=== PATIENT | female | born 1945 | race Caucasian/White ===

== ENCOUNTER 2018-01-14 13:52 | Emergency (ER) | payer MEDICARE, SELFPAY ==
[2018-01-14 13:53] VITALS: BP 185/101; PULSE 81; RESP 20; TEMP 36.6; O2SAT 99; BMI 29.3
[2018-01-14 14:39] VITALS: BP 176/93; PULSE 81; RESP 15; O2SAT 95
--- NOTE | 2018-01-14 15:11 | ED.VIS.GEN ---
History of Present Illness Chief Complaint: Hypertension Informant: Patient, Family Onset: Weeks - 1.5 Context: Gradual Onset Timing: Continuous Quality: malaise Location: all over Current Severity: Moderate Maximum Severity: Moderate Narrative: For the past week or more, patient states that her blood pressure has been high, in the 180s, with diastolics occasionally in the triple digits. She has had intermittent right sharp headaches without any vision changes, she has some occasional muscle spasms in her upper back that she also feels into her chest on occasion. She was having that today when she was at her pain management doctor, and her blood pressure was over 200 systolic so she was sent to the ER. She states right now other than malaise, she has none of the other symptoms. Patient has been compliant with her losartan for blood pressure and has had no adjustments lately. No recent [id number] medications or cold medications. Also notable is that the patient states that she has had an increase in her chronic pain in the same amount of time that her blood pressure has been up. We gave her something for pain here, but it did not seem to make a big difference in her blood pressure. - Past Medical History (1) HTN (hypertension) Status: Chronic (2) Arthritis Status: Chronic (3) Fibromyalgia Status: Chronic (4) Chronic low back pain Status: Chronic (5) CAD (coronary artery disease) Status: Chronic Past Medical History - Allergies and Home Meds Allergies/Adverse Reactions: Allergies acetaminophen [From Midrin] Allergy (Verified 01/14/18 13:55) Other dichloralphenazone [From Midrin] Allergy (Verified 01/14/18 13:55) Other isometheptene [From Midrin] Allergy (Verified 01/14/18 13:55) Other Sulfa (Sulfonamide Antibiotics) Allergy (Verified 01/14/18 13:55) Swelling topiramate [From Topamax] Allergy (Verified 01/14/18 13:55) Unknown codeine Adverse Reaction (Verified 01/14/18 13:55) Nausea/Vom/Diarrhea ibuprofen Adverse Reaction (Verified 01/14/18 13:55) Nausea Primary Care Physician: Sally Irvin DO [Primary Care Provider] - Surgical History: coronary bypass surgery, total knee arthroplasty - left Smoking Status: Former smoker Review of Systems All systems negative except as indicated General: Reports: Malaise. Denies: Chills, Fever Eyes: Denies: Blurred Vision - bilaterally, Diplopia ENT: Denies: Bilateral ear pain Cardiovascular: Reports: Chest pain - not now, Heart racing - w/o near-syncope or syncope. Denies: Palpitations Respiratory: Denies: Dyspnea, Cough Gastrointestinal: Denies: Abdominal pain, Nausea, Vomiting, Diarrhea, Hematochezia Genitourinary: Denies: Dysuria, Frequency Musculoskeletal: Reports: Arthralgias - chronic, Back pain. Denies: Neck pain, Swelling, Extremity Pain Skin: Denies: Rash, Abscess Neurological: Reports: Headache - off and on, not now. Denies: Weakness, Parasthesia Hematologic: Denies: Easy bruising, Easy bleeding Allergy: Denies: Swelling of the mouth, Swelling of the tongue Physical Exam Vital Signs/Narrative: Vital Signs Temp Pulse Resp BP Pulse Ox 01/14/18 14:39 81 15 176/93 H 95 01/14/18 13:53 97.9 F 81 20 H 185/101 H 99 Inital Vital Signs reviewed: Yes General: Well nourished, Well developed Head: Normocephalic, Atraumatic Eyes: Perrl, EOMI ENT: Moist mucous membranes, No rhinorrhea Neck: Supple, Nontender Cardiovascular: Regular rate, Regular rhythm, No murmurs Respiratory: No distress, CTA bilaterally, Chest nontender Abdomen: Soft, Nontender, Nondistended, Normal bowel sounds Back: Normal Inspection, - - pain w/ sitting forward, winces in pain w/ light touching of the skin throughout the lumbosacral back. no rashes.. Negative for: CVA tenderness Extremities: Nontender, No edema Skin: Normal color, No rash Neurological: Alert, Oriented x3, Cranial nerves II-XII grossly intact, Normal Strength, Normal Sensation Psychological: Normal affect Diagnostic/Tx/Re-eval Impressions Chest X-Ray 01/14/18 15:09 IMPRESSION: No acute pulmonary process Electronically Signed: Sathya Hammer MD at 17:48 EDT , Service support , Brain CT 01/14/18 15:10 IMPRESSION: Chronic involutional changes of the brain. No acute hemorrhage Previous left craniotomy Electronically Signed: Sathya Hammer MD at 17:45 EDT , Service support , 01/14/18 15:09 Chest PA and Lateral [RAD] Stat 01/14/18 15:10 Brain/Head without Contrast [CT] Stat Laboratory Results 01/14/18 01/14/18 01/14/18 Range/Units 15:20 15:20 16:15 WBC 7.8 (4.4-11.0) K/mm3 RBC 4.86 (4.2-5.4) M/mm3 Hgb 14.8 (12.0-15.0) g/dl Hct 43.7 (37-47) % MCV 89.9 (81-99) fL MCH 30.5 (27.0-32.0) pg MCHC 33.9 (32-36) g/gl RDW 12.8 (11.6-14.6) % RDW Differential 41.8 (35.1-43.9) fl Plt Count 230 (150-450) K/mm3 MPV 9.7 (6.2-12.0) fl Immature Gran % (Auto) 0.300 (0.0-0.9) % Neut % (Auto) 56.5 (47-70) % Lymph % (Auto) 33.8 (19-41) % [place] % (Auto) 6.6 (0-10) % Eos % (Auto) 2.3 (0-5) % Baso % (Auto) 0.5 (0-1) % Absolute Neuts (auto) 4.4 (2.0-7.7) X10^3/uL Absolute Lymphs (auto) 2.63 (0.83-4.51) X10^3/ul Total Counted Not Reportable Sodium 141 (136-145) mmol/L Potassium 4.0 (3.5-5.1) mmol/L Chloride 105 (98-107) mmol/L Carbon Dioxide 28.0 (21.0-32.0) mmol/L Anion Gap 8 (5-15) BUN 13 (7-18) mg/dL Creatinine 0.90 (0.55-1.02) mg/dL Estim Creat Clear Calc 49.51 ml/min Est GFR (MDRD) Af Amer 79 (>60) mL/min Est GFR (MDRD) Non-Af 65 (>60) mL/min BUN/Creatinine Ratio 14.4 (10-20) RATIO Glucose 92 (74-106) mg/dL Calcium 9.0 (8.5-10.1) mg/dL Troponin I < 0.015 (<0.045) ng/mL Urine Color Straw (Yellow) Urine Clarity Sl. Cloudy (Clear) Urine pH 7.0 (5.0 - 8.0) Ur Specific [place] 1.010 (1.002-1.030) Urine Protein Negative (Negative) mg/dl Urine Glucose (UA) Normal (Normal) mg/dl Urine Ketones Negative (Negative) mg/dl Urine Occult Blood 10 H (Negative) /ul Urine Nitrite Negative (Negative) Urine Bilirubin Negative (Negative) mg/dL Urine Urobilinogen Normal (Normal) mg/dl Ur Leukocyte Esterase 25 H (Negative) /ul Urine RBC 0-5 SEEN (0-5) /hpf Urine WBC 0-5 SEEN (0-5) /hpf Ur Squamous Epith Cells 0-5 SEEN (5-10) /hpf Urine Bacteria 0 SEEN (None Seen) /hpf Urine Mucus 0 SEEN (<or=2+) /hpf - Rhythm Strip Rhythm Strip: Sinus Rhythm Rate: 85 Ectopy: None - EKG Initial EKG Interpretation: Sinus Rhythm, No Acute Injury Pattern, Non-Specific ST Changes, - - nml axis. mildly prolonged QTc - Medical Decision Making Labs, urinalysis, chest x-ray, CT head are all unremarkable. Her EKG shows no acute abnormalities. Her pressure was mostly in the 170s so I did not treat her emergently since she was just feeling malaised and not necessarily having acute symptoms. She has no signs of any endorgan damage. No dysrhythmias or tachycardia while here. She was saying that she had some feelings of racing heartbeat on occasion at home but no near-syncope or syncope. Given this I do not think he needs to be admitted to the hospital, and bringing her pressure down emergently now may make her feel worse. She needs to be brought down slowly, so I will add amlodipine to her medication list and have her follow-up with her doctor. ED Disposition - Plan for ED Patient: Disposition: Home or Assisted Living Chief Complaint: Hypertension Diagnosis: Chronic low back pain, Fibromyalgia, Accelerated hypertension, Intermittent chest pain Prescriptions: Amlodipine [Norvasc] 5 mg PO DAILY #30 tab Referrals: Sally Irvin DO [Primary Care Provider] - (2-5 days) Additional Instructions: Increase your losartan to 50 mg once daily in addition to the new prescription. (Take 2, 25-mg pills at one time, once a day, of the losartan.)
[2018-01-14 15:34] LABS: Absolute Lymphocyte Count 2.63 X10^3/ul (0.83-4.51); Absolute Neutrophil Count 4.4 X10^3/uL (2.0-7.7); Basophil# 0.04 X10^3/uL; Basophil% 0.5 % (0-1); Eosinophil# 0.18 X10^3/uL; Eosinophils% 2.3 % (0-5); Hematocrit 43.7 % (37-47); Hemoglobin 14.8 g/dl (12.0-15.0); Lymphocyte # 2.63 X10^3/ul (4.0); Lymphocyte % 33.8 % (19-41); Mean Corp Hgb Conc 33.9 g/gl (32-36); Mean Corpuscular Hgb 30.5 pg (27.0-32.0); Mean Corpuscular Volume 89.9 fL (81-99); Mean Platelet Vol. 9.7 fl (6.2-12.0); Monocyte# 0.51 X10^3/uL; Monocyte% 6.6 % (0-10); Neutrophil # 4.39 X10^3/uL (2.7-7.7); Neutrophil % 56.5 % (47-70); Platelet Count 230 K/mm3 (150-450); RBC Distribution Width CV 12.8 % (11.6-14.6); RBC Distribution Width SD 41.8 fl (35.1-43.9); Red Blood Count 4.86 M/mm3 (4.2-5.4); White Blood Count 7.8 K/mm3 (4.4-11.0)
[2018-01-14 15:43] LABS: POSITIVE COUNT NO; POSITIVE DIFFERENTIAL NO; POSITIVE MORPHOLOGY NO
[2018-01-14 15:58] LABS: Anion Gap 8 (5-15); BUN 13 mg/dL (7-18); BUN/Creat Ratio 14.4 RATIO (10-20); Chloride 105 mmol/L (98-107); EST Glomerular Filtration Rate 65 mL/min (>60); Est Glom Filt Rate - Afr Amer 79 mL/min (>60); Estimated Creatinine Clearance 49.51 ml/min; Glucose 92 mg/dL (74-106); Sodium Level 141 mmol/L (136-145)
[2018-01-14 16:15] VITALS: BP 190/98; PULSE 75; RESP 16; O2SAT 98
[2018-01-14 16:22] LABS: Bacteria 0 SEEN /hpf (None Seen); Mucous, Urine 0 SEEN /hpf (<or=2+)
[2018-01-14 16:35] LABS: Color, Urine Straw (Yellow); Glucose, Dipstick Normal (Normal); Ketone-Dipstick Negative (Negative); Leukocyte Esterase-Dipstick 25 /ul (Negative); Nitrite-Dipstick Negative (Negative); Occult Blood-Urine 10 /ul (Negative); Protein-Dipstick Negative (Negative); Urine Bilirubin Dipstick Negative (Negative); Urine Clarity Sl. Cloudy (Clear); Urine Urobilinogen Normal (Normal)
[2018-01-14] MEDS: oxyCODONE 5 MG Tablet PO (16:42)
[2018-01-14 16:55] LABS: Squamous Epithelial Cells - UA 0-5 SEEN /hpf (5-10)
[2018-01-14 16:56] LABS: Red Blood Cells-Urine 0-5 SEEN /hpf (0-5); White Blood Cells 0-5 SEEN /hpf (0-5)
[2018-01-14 18:18] VITALS: BP 158/78; PULSE 73; RESP 17; O2SAT 96
--- NOTE | 2018-01-14 18:18 | ED.VISSUMM ---
- ER Visit Summary Date of Service: 01/14/18 (D/C instructions) ED Disposition - Plan for ED Patient: Disposition: Home or Assisted Living Chief Complaint: Hypertension Diagnosis: Chronic low back pain, Fibromyalgia, Accelerated hypertension, Intermittent chest pain Instructions: ED Hypertension Conf Out Of Control Prescriptions: Amlodipine [Norvasc] 5 mg PO DAILY #30 tab Referrals: Sally Ivrin DO [Primary Care Provider] - (2-5 days) Additional Instructions: Increase your losartan to 50 mg once daily in addition to the new prescription. (Take 2, 25-mg pills at one time, once a day, of the losartan.)
[2018-01-14 18:40] VITALS: BP 145/98; PULSE 74; RESP 18; O2SAT 98
== END 2018-01-14 18:41 | disposition home or self-care (01) ==
PROVIDERS: Emergency Provider Emergency Medicine; Family Provider Family Medicine; PCP Family Medicine
DX: M54.5 Low back pain (principal); G89.29 Other chronic pain; M79.7 Fibromyalgia; I10 Essential (primary) hypertension; R07.89 Other chest pain; M19.90 Unspecified osteoarthritis, unspecified site; I25.10 Atherosclerotic heart disease of native coronary artery without angina pectoris; Z95.1 Presence of aortocoronary bypass graft; Z79.82 Long term (current) use of aspirin; Z79.899 Other long term (current) drug therapy; Z87.891 Personal history of nicotine dependence
CPT/HCPCS: 70450; 71046; 80048; 81001; 84484; 85025; 93005; 99285; A4216

== ENCOUNTER → 2018-08-18 02:00 | Outpatient (CLI) | payer MEDICARE, SELFPAY ==
--- NOTE | 2018-08-18 14:06 | ART_ITS ---
Reason For Study: Other Disorder Circulatory System Procedure A bilateral lower extremity continuous wave Doppler with analog waveform analysis,segmental pressures,and ankle brachial indexes without exercise. Left Segmental Pressures Left brachial= 178mmHg. Left thigh = 205mmHg. Left calf = 194mmHg. Left posterior tibial artery = 188mmHg. Left dorsalis pedis artery = 164mmHg. Left digit = 142 mmHg. Right Segmental Pressures Right brachial= 177mmHg. Right posterior tibial artery = 182mmHg. Right dorsalis pedis artery = 186mmHg. Right digit = 139 mmHg. Indices The right ankle brachial index by the posterior tibial artery is 1.02. The right ankle brachial index by the dorsalis pedis is 1.04. The right digital-brachial index is 0.78. The left ankle brachial index by the posterior tibial artery is 1.06. The left ankle brachial index by the dorsalis pedis is 0.92. The left digital-brachial index is 0.80. Interpretation Summary Triphasic Doppler waveforms are noted at ankle level bilaterally. Resting ankle-brachial indices are normal bilaterally. Digital-brachial indices are bilaterally normal. There is no evidence of significant arterial occlusive disease in the lower extremities bilaterally. Ordering Physician: Sumi Ayala Referring Physician: HENRIK Judge Performed By: Roxanne Ortega RDCS/RVT
== END ==
PROVIDERS: Family Provider Family Medicine; PCP Nurse Practitioner Adult Health; Referring Provider Nurse Practitioner Adult Health; Visit Provider Podiatrist Foot & Ankle Surgery
DX: R09.89 Other specified symptoms and signs involving the circulatory and respiratory systems (principal)
CPT/HCPCS: 93923

== ENCOUNTER 2019-04-08 10:08 | Observation (INO) | payer MEDICARE, SELFPAY ==
[2018-09-27 13:25] VITALS: BMI 30.5
[2019-04-08] VITALS (14 sets, daily range): BP systolic 162–204; BP diastolic 73–95; PULSE 60–81; RESP 16–22; TEMP 36.6–36.7; O2SAT 94–98; BMI 30.9; BMI 30.7
--- NOTE | 2019-04-08 10:49 | RAD_ITS ---
STUDY: X-RAY CHEST REASON FOR EXAM: Female, 74 years old. Chest pain. Hypertension. TECHNIQUE: Single AP portable view of the chest. COMPARISON: Comparison is made with prior study dated January 14, 2018. FINDINGS: The lungs are clear and expanded. There is no demonstrated pleural abnormality. Sternal cerclage wires and vascular clips are present from a prior sternotomy and coronary artery bypass graft procedure (CABG). Normal mediastinum and ramakrishna. Normal visualized pulmonary arteries. There is atherosclerotic calcification of the aortic arch with tortuosity. There are diffuse degenerative changes of the visualized thoracic spine. Normal visualized ribs, clavicles, and shoulders. There is no demonstrated abnormality of the visualized soft tissue structures of the upper abdomen. RAD/Chest 1 View (Portable) IMPRESSION: Stable examination. No acute abnormality is seen. Electronically Signed: Tayo Bundy, at 11:16 EST , Service support ,
--- NOTE | 2019-04-08 10:49 | EKG12_ITS ---
Test Reason : CP Blood Pressure : / mmHG Vent. Rate : 061 BPM Atrial Rate : 061 BPM P-R Int : 148 ms QRS Dur : 076 ms QT Int : 442 ms P-R-T Axes : 037 031 082 degrees QTc Int : 444 ms Normal sinus rhythm Possible Left atrial enlargement Nonspecific ST and T wave abnormality Abnormal ECG Confirmed by SCOTT SEXTON, RUKHSANA ([id number]), photographic editor RANDY LIMON ([id number]) on 04/11/2019 9:39:19 AM Referred By: TONE Confirmed By:RUKHSANA CHAVEZ MD
[2019-04-08] MEDS: Nitroglycerin SL (ED/IMG/CATH) 0.4 MG TABLET SUBLINGUAL ×3 (11:13→11:25)
[2019-04-08] MEDS: Aspirin 81 MG TAB.CHEW 324 MG PO (11:13)
[2019-04-08 11:22] LABS: Absolute Lymphocyte Count 1.92 X10^3/uL (0.83-4.51); Absolute Neutrophil Count 7.1 X10^3/uL (2.0-7.7); Basophil# 0.04 X10^3/uL; Basophil% 0.4 % (0-1); Eosinophil# 0.04 X10^3/uL; Eosinophils% 0.4 % (0-5); Hematocrit 41.7 % (37-47); Hemoglobin 13.7 g/dL (12.0-15.0); Lymphocyte # 1.92 X10^3/ul (4.0); Mean Corp Hgb Conc 32.9 g/dL (32-36); Mean Corpuscular Hgb 30.4 pg (27.0-32.0); Mean Corpuscular Volume 92.7 fL (81-99); Mean Platelet Vol. 10.2 fl (6.2-12.0); Monocyte# 0.47 X10^3/uL; Monocyte% 4.9 % (0-10); NRBC Flagged by Analyzer 0 % (0-5); Neutrophil # 7.07 X10^3/uL (2.7-7.7); Neutrophil % 73.9 % (47-70); Platelet Count 234 K/mm3 (150-450); RBC Distribution Width CV 12.6 % (11.6-14.6); RBC Distribution Width SD 42.8 fl (35.1-43.9); White Blood Count 9.6 K/mm3 (4.4-11.0)
[2019-04-08] MEDS: Acetaminophen 325 MG Tablet 650 MG PO (11:35)
[2019-04-08 11:49] LABS: Anion Gap 5 (5-15); BUN 16 mg/dL (7-18); BUN/Creat Ratio 18.1 RATIO (10-20); Calcium,Total 8.7 mg/dL (8.5-10.1); Chloride 110 mmol/L (98-107); Creatinine, Serum 0.88 mg/dL (0.55-1.02); EST Glomerular Filtration Rate 67 mL/min (>60); Est Glom Filt Rate - Afr Amer 81 mL/min (>60); Estimated Creatinine Clearance 49.17 ml/min; Glucose 110 mg/dL (74-106); Potassium 4.5 mmol/L (3.5-5.1); Sodium Level 144 mmol/L (136-145)
--- NOTE | 2019-04-08 13:32 | ED.VIS.GEN ---
History of Present Illness Chief Complaint: Chest Pain Informant: Patient, Family Onset: Weeks Context: Onset with activity Timing: Intermittent Quality: Chest pressure Location: Midsternal with radiation to jaw and both shoulders Current Severity: Vague mild discomfort Maximum Severity: Severe - Severe last evening going up a flight of steps. Worsened by: Exertion/activity Relieved by: Rest Associated Symptoms: Dyspnea, and diaphoresis especially last evening. Narrative: Is an elderly woman with known history of coronary disease status post bypass surgery who presents with classic exertional anginal symptoms for several weeks. She is not contacted her rehabilitation program coordinator who is Dr. Ayala. He apparently is retired. She has no local rehabilitation program coordinator. Her bypass surgery occurred in 2006. Has multiple risk factors. She is seen in pain management as well. Prior similar symptoms: Yes - Angina Recent Illness/Hospitalization: No - Past Medical History (1) CAD (coronary artery disease) Status: Chronic (2) Fibromyalgia Status: Chronic (3) HTN (hypertension) Status: Chronic Past Medical History - Allergies and Home Meds Allergies/Adverse Reactions: Allergies acetaminophen [From Midrin] Allergy (Verified 04/08/19 10:12) Other dichloralphenazone [From Midrin] Allergy (Verified 04/08/19 10:12) Other isometheptene [From Midrin] Allergy (Verified 04/08/19 10:12) Other Sulfa (Sulfonamide Antibiotics) Allergy (Verified 04/08/19 10:12) Swelling topiramate [From Topamax] Allergy (Verified 04/08/19 10:12) Unknown codeine Adverse Reaction (Verified 04/08/19 10:12) Nausea/Vom/Diarrhea ibuprofen Adverse Reaction (Verified 04/08/19 10:12) Nausea Primary Care Physician: Stacie Rivers NP-C [Primary Care Provider] - Prior records reviewed: Yes - History of [place] Surgical History: coronary bypass surgery, total knee arthroplasty - left Lives: Spouse/ Significant Other Smoking Status: Former smoker Alcohol: None Drugs: None Review of Systems General: Reports: Malaise. Denies: Chills, Fever, Sweats Eyes: Denies: Visual changes - bilaterally, Blurred Vision - bilaterally ENT: Denies: Rhinorrhea, Sore throat Cardiovascular: Reports: Chest pain Respiratory: Reports: Dyspnea, Dyspnea on exertion. Denies: Cough, Orthopnea, Paroxysmal nocturnal dyspnea Gastrointestinal: Denies: Abdominal pain, Nausea, Vomiting, Diarrhea, Melena, Hematochezia Genitourinary: Denies: Dysuria, Hematuria, Frequency Musculoskeletal: Reports: Swelling. Denies: Myalgias, Arthralgias, Neck pain, Back pain, Extremity Pain, -, - Skin: Denies: Rash, Wounds Neurological: Reports: Weakness. Denies: Headache, Parasthesia, Numbness, -, - Endocrine: Denies: Polyuria, Polydipsia Hematologic: Denies: Easy bruising, Easy bleeding Physical Exam Vital Signs/Narrative: Vital Signs Temp Pulse Resp BP Pulse Ox 04/08/19 11:25 70 172/79 H 04/08/19 11:20 69 170/87 H 04/08/19 11:15 69 22 H 162/87 H 98 04/08/19 11:13 71 203/92 H 04/08/19 10:10 97.9 F 67 20 H 201/93 H 98 Inital Vital Signs reviewed: Yes General: Well nourished, Well developed, Obese, - - Well. Head: Normocephalic, Atraumatic Eyes: Perrl, EOMI ENT: Moist mucous membranes, No rhinorrhea Neck: Supple, Nontender Cardiovascular: Regular rate, Regular rhythm, No murmurs, Normal S1, Normal S2. Negative for: - Respiratory: No distress, CTA bilaterally, Chest nontender. Negative for: Rales, Rhonchi, Wheezing Abdomen: Soft, Nontender, Nondistended, Normal bowel sounds, No masses Back: Nontender, Normal Inspection Extremities: Nontender, Edema - Mild pitting Skin: Normal color, No rash, No Trauma. Negative for: Cyanosis, Diaphoresis, Jaundice Neurological: Alert, Oriented x3, Cranial nerves II-XII grossly intact, Normal Strength, Normal Sensation. Negative for: Normal Gait Psychological: Normal affect, Normal Mood Diagnostic/Tx/Re-eval Chest X-Ray - ED: 1 View, Read by ED Physician, Normal, Heart, Mediastinum, Bony Structures, No Acute Disease, - - No wires are noted. There is no evidence of infiltrate or effusion. There is no evidence of congestive heart failure. Impressions Chest X-Ray 04/08/19 10:49 IMPRESSION: Stable examination. No acute abnormality is seen. Electronically Signed: Tayo Bundy, at 11:16 EST , Service support , 04/08/19 10:49 Chest 1 View (Portable) [RAD] Stat Laboratory Results 04/08/19 04/08/19 11:10 11:10 WBC 9.6 RBC 4.50 Hgb 13.7 Hct 41.7 MCV 92.7 MCH 30.4 MCHC 32.9 RDW Std Deviation 42.8 RDW Coeff of [place] 12.6 Plt Count 234 MPV 10.2 Immature Gran % (Auto) 0.400 Neut % (Auto) 73.9 H Lymph % (Auto) 20.0 [place] % (Auto) 4.9 Eos % (Auto) 0.4 Baso % (Auto) 0.4 Absolute Neuts (auto) 7.1 Absolute Lymphs (auto) 1.92 Nucleated RBC % 0 Sodium 144 Potassium 4.5 Chloride 110 H Carbon Dioxide 29.0 Anion Gap 5 BUN 16 Creatinine 0.88 Estim Creat Clear Calc 49.17 Est GFR (MDRD) Af Amer 81 Est GFR (MDRD) Non-Af 67 BUN/Creatinine Ratio 18.1 Glucose 110 H Calcium 8.7 Troponin I < 0.015 Laboratory tests are unremarkable including troponin. Plan is to contact hospitalist since she has risk factor coronary disease with coronary disease and exertional angina that is alleviated with rest. - EKG Initial EKG Interpretation: Sinus Rhythm - Sinus rhythm with a ventricular rate of 61. MD interval is 140 ms. QS duration 76 ms. QT duration 442 ms. [place] is normal. There is some no ossific changes that is minimal at best. There is no acute ischemic changes noted. [place] is normal. - Medical Decision Making Patient presents with exertional angina alleviated by rest. Will obtain EKG and appropriate blood work to assess for acute ischemia or recent [place]. History is slightly completed because she has history of 5 myalgia and is under pain management. She has not seen her rehabilitation program coordinator in 1 year. ED Disposition - Plan for ED Patient: Disposition: Acute Care Hospital [facility] Diagnosis: Exertional chest pain, History of coronary artery disease, History of hypertension Referrals: Stacie Rivers NP-C [Primary Care Provider] -
--- NOTE | 2019-04-08 14:31 | HP.PCM_ITS ---
Problem List (1) Unstable angina Status: Acute (2) S/P CABG x 3 Status: Chronic Comment: 2007 (3) GERD (gastroesophageal reflux disease) Status: Chronic (4) Tobacco dependence in remission Status: Chronic Comment: quit smoking at 61 YOA (5) Neuropathy Status: Acute (6) Brain tumor (benign) Status: Resolved Comment: benign, excised 2005 (7) History of coronary artery disease Status: Acute (8) History of hypertension Status: Acute (9) Leg cramps Status: Chronic (10) HTN (hypertension) Status: Chronic Qualifiers: Hypertension type: essential hypertension Qualified Code(s): I10 - Essential (primary) hypertension (11) Arthritis Status: Chronic (12) Fibromyalgia Status: Chronic (13) Chronic low back pain Status: Chronic (14) CAD (coronary artery disease) Status: Chronic Qualifiers: Coronary Disease-Associated Artery/Lesion type: marshall artery History of Present Illness Date of Admission: 04/08/19 Chief Complaint: Back pain radiating to the chest The patient is a 74 year old F with a PMH of HTN, GERD, CAD with CABG X 3 in 2006, HLD, arthritis (unspecified), obesity, fibromyalgia, neuropathy of the legs and skin cancer(excised) who presented to the emergency department at [facility] complaining of back pain between her shoulder blades with exertion that radiates to the anterior chest, into the neck and into the jaw. The pain is associated with shortness of breath sometimes nausea. She has been having this pain for a few weeks and only with exertion. The past 2 days the pain has been much worse and last night she became very diaphoretic with the pain after climbing steps. She did not have CP at the time she presented to the ED today. She has a known history of coronary artery disease and had a three- vessel CABG in 2006. In the past she has seen Dr. Ayala in [place] but, he has since retired. Her last exercise test was a few years ago and she has not had a cath since 2006. She has NTG at home but has not taken it. EKG in the ED showed NSR with non-specific changes in the anterior precordial leads. There was no ST elevation. Chest x-ray showed no infiltrates, pleural effusions or si gnificant pulmonary vascular congestion. Troponin was less than 0.015. CBC is unremarkable. [] Blood pressures have been increased and have ranged from 162/87 to 203/92. Heart rate is ranged from 62-71. She has not been taking aspirin or Plavix as an outpatient. She was administered aspirin in the emergency department. She is being admitted to the hospital with a dx of Unstable Angina. Past Medical History Past Medical History (Chronic Problems): Chronic Problems (Last Reviewed 04/08/19 @ 15:11 by Starr Sanchez DO) S/P CABG x 3 (Chronic) 2006 GERD (gastroesophageal reflux disease) (Chronic) Tobacco dependence in remission (Chronic) quit smoking at 61 YOA Leg cramps (Chronic) HTN (hypertension) (Chronic) Arthritis (Chronic) Fibromyalgia (Chronic) Chronic low back pain (Chronic) CAD (coronary artery disease) (Chronic) Medical History: Medical History (Last Reviewed 04/08/19 @ 17:43 by Starr Sanchez DO) Leg cramps (Chronic) R25.2 HTN (hypertension) (Chronic) I10 Arthritis (Chronic) M19.90 Fibromyalgia (Chronic) M79.7 Chronic low back pain (Chronic) M54.5, G89.29 CAD (coronary artery disease) (Chronic) I25.10 Heart attack I21.9 Neuropathy G62.9 Plantar fasciitis M72.2 Stomach ulcer K25.9 Allergies acetaminophen [From Midrin] Allergy (Verified 04/08/19 10:12) Other dichloralphenazone [From Midrin] Allergy (Verified 04/08/19 10:12) Other isometheptene [From Midrin] Allergy (Verified 04/08/19 10:12) Other Sulfa (Sulfonamide Antibiotics) Allergy (Verified 04/08/19 10:12) Swelling topiramate [From Topamax] Allergy (Verified 04/08/19 10:12) Unknown codeine Adverse Reaction (Verified 04/08/19 10:12) Nausea/Vom/Diarrhea ibuprofen Adverse Reaction (Verified 04/08/19 10:12) Nausea Home Medications: Ambulatory Orders Medication Instructions Recorded Citalopram [Celexa] 20 mg PO DAILY 02/18/16 Oxycodone HCl/Acetaminophen 1 tab PO 4X/DAY 01/14/18 [Oxycodon-Acetaminophen 7.5-325] methocarbamol 500 mg tablet 500 mg PO TID PRN PRN 05/13/19 Gabapentin [Neurontin] 300 mg PO TID 04/08/19 Losartan Potassium 100 mg PO DAILY 04/08/19 Prednisone See Taper PO DAILY 04/08/19 Surgical History: Surgical History (Last Reviewed 04/08/19 @ 17:43 by Starr Sanchez DO) History of craniotomy Z98.890 History of fusion of cervical spine Z98.1 History of hysterectomy Z90.710 History of laparoscopic cholecystectomy Z90.49 history bladder sling history laminectomy and discectomy history triple bypass open heart Surgical History: coronary bypass surgery - 2007, total knee arthroplasty - left Psychiatric History: No pertinent psych hx [employer] History: dysfunctional uterine bld - had a partial hysterectomy followed by a total hysterectomy when the bladder suspension surgery was done Lives: Spouse/ Significant Other Smoking Status: Former smoker - she started smoking as a teenager and she quit at 61 YOA and smoked 1 PPD.....she had some short spans where she did not smoke at all(when ) Alcohol: None Drugs: None - *Family History Maternal Family History: Family History (Last Reviewed 04/08/19 @ 15:15 by Starr Sanchez DO) Grandmother Hypertension Father CVA (cerebral vascular accident) Heart disease Mother Hypertension Cancer Brother Cancer Sister Hypertension History Items: - - mother of small cell lung CA, brother with prostate CA, She has a sister with DM and another with CAD. FAther with [place] at 85 YOA Review of Systems Constitutional: Denies: Chills, Fever, Weight Change Eyes: Denies: Blurred vision HEENT: Denies: Difficulty Swallowing, Head Aches, Sinus Congestion, Sinus Drainage Cardiovascular: Reports: Chest Pain. Denies: Light Headedness, Orthopnea, Palpitations, Paroxysmal Noc. Dyspnea, Syncope Respiratory: Reports: Shortness of breath upon exertion. Denies: Cough, Shortness of breath at rest, Sputum production Gastrointestinal: Reports: Nausea - sometimes gets this with the chest and the back pain. Denies: Abdominal Pain, Diarrhea, Vomiting Genitourinary: Denies: Dysuria Gynecological: Denies: Breast symptoms Musculoskeletal: Reports: Joint Pain, Muscle pain, Shoulder Pain - BL. Denies: Joint Tenderness Skin: Denies: Jaundice, Rash, Wounds Neurological: Reports: - - c/o pain in the legs due to neuropathy. Denies: Focal weakness, Numbness, Tingling Psychiatric: Denies: Anxiety, Depression, Homicidal Ideations, Suicidal Ideations Hematologic/ Lymphatic: Denies: Easy Bruising, Easy Bleeding, Hx of blood clot VTE Information - Inpt Only VTE Present on Admission: No VTE Mechan Device Prophylaxis: Knee High MARA Hose VTE Pharm Prophylaxis ordered?: Yes Patient Problems: Active and Suspected Problems (Last Reviewed 04/08/19 @ 15:11 by Starr Sanchez DO) History of coronary artery disease (Acute) History of hypertension (Acute) Unstable angina (Acute) Neuropathy (Acute) - Physical Exam Vitals/I&O's: Vital Signs Temp Pulse Resp BP Pulse Ox 97.9 F 62 18 187/76 H 96 04/08/19 10:10 04/08/19 13:31 04/08/19 13:31 04/08/19 13:31 04/08/19 13:31 Oxygen Delivery Method Room Air Weight: 180 lb Body Mass Index (BMI) 30.9 General: Alert, Oriented x3, Cooperative, - - she appears to be in pain.....primarily BL shoulder pain that she has everyday. HEENT: Atraumatic, PERRLA, EOMI, Normocephalic Oral: No Gingival or Mucosal Lesions/ Ulcerations, Dry Mucosa Neck: Supple, No JVD, Negative Carotid Bruits, No Nodes, Trachea Midline, - - She has a small cicatrix in the anterior neck near the suprasternal notch secondary to anterior cervical fusion. Lungs: Clear to auscultation, Diminished Cardiovascular: Regular rate, Regular Rhythm, Normal S1, Normal S2, No Ectopic Activity, Murmur - 1-2/6 systolic MM at the second RICS, No rub noted, No Gallop Abdomen: Bowel Sounds Present, Soft, Non Tender, Non-Distended, Obese, - - No abdominal bruits Extremities: No clubbing, No cyanosis, No edema, No Calf Tenderness, Peripheral Pulses Normal Skin: No rashes Musculoskeletal: Arthritic Changes Neurological: Cranial nerves II-XII grossly intact, Neuro grossly intact Psych/Mental Status: Normal Affect, Appropriate Laboratory Results 04/08/19 11:10: WBC 9.6, RBC 4.50, Hgb 13.7, Hct 41.7, MCV 92.7, MCH 30.4, MCHC 32.9, RDW Std Deviation 42.8, RDW Coeff of Fredo 12.6, Plt Count 234, MPV 10.2, Immature Gran % (Auto) 0.400, Neut % (Auto) 73.9 H, Lymph % (Auto) 20.0, Howard % (Auto) 4.9, Eos % (Auto) 0.4, Baso % (Auto) 0.4, Absolute Neuts (auto) 7.1, Absolute Lymphs (auto) 1.92, Nucleated RBC % 0 04/08/19 11:10: Sodium 144, Potassium 4.5, Chloride 110 H, Carbon Dioxide 29.0, Anion Gap 5, BUN 16, Creatinine 0.88, Estim Creat Clear Calc 49.17, Est GFR (MDRD) Af Amer 81, Est GFR (MDRD) Non-Af 67, BUN/Creatinine Ratio 18.1, Glucose 110 H, Calcium 8.7, Troponin I < 0.015 Assessment/Plan All Active Problems (Last Reviewed 04/08/19 @ 15:11 by Starr Sanchez DO) History of coronary artery disease (Acute) History of hypertension (Acute) Unstable angina (Acute) Neuropathy (Acute) Brain tumor (benign) (Resolved) Impressions 1. Chest pain radiating to the jaw and the neck associated with SOB, diaphoresis and sometimes nausea, brought on with exertion. EKG with non- specific ST changes in the anterior precordial leads. Serial cardiac enzymes have been ordered. She will be monitored on PCU overnight. Pharmacologic nuclear stress test in the a.m. if the serial enzymes are negative. 2. CAD with hx of CABG X3 in 2006 3. HTN - uncontrolled at present - due to anxiety? continue home medications and add Cardura at night and PRN Hydralazine 4. Hyperlipidemia-not on a statin currently 5. Remote history of a benign brain tumor/status post excision, history of skin cancer (not melanoma), arthritis, fibromyalgia, neuropathy of her legs, GERD and remote peptic ulcer disease-continue regularly scheduled medications. Code Visit OBSV E&M: 65579 Initial observation care L3
--- NOTE | 2019-04-08 15:21 | ECHOD_ITS ---
Reason For Study: Chest Pain Procedure This was a 2D Doppler, Color Flow transthoracic echocardiogram. Exam performed portable in patient room. Left Ventricle Normal LV size. Moderate concentric left ventricular hypertrophy. The estimated ejection fraction is 65 %. Stage 2 diastolic dysfunction. No regional wall motion abnormalities noted. Right Ventricle Normal RV size. Normal systolic function. Atria Normal left atrium. Normal right atrium. Mitral Valve Normal mitral valve. Mild (1+) eccentric mitral valve insufficiency. Tricuspid Valve Normal tricuspid valve. Mild (1+) tricuspid valve insufficiency. Aortic Valve Trisinus/trileaflet aortic valve. Trivial aortic valve insufficiency. Pulmonic Valve Normal pulmonic valve. Great Vessels Normal aortic root. The pulmonary artery is normal size. Normal inferior vena cava. Pericardium/Pleural No pericardial effusion. MMode/2D Measurements & Calculations LVIDd: 3.4 cm IVSd: 1.6 cm Ao root diam: 3.0 cm LVIDs: 2.4 cm LVPWd: 1.3 cm RVDd: 2.8 cm FS: 30.2 % LAV(MOD-bp): 33.7 ml LVAd ap4: 18.0 cm2 SV(MOD-sp4): 26.8 ml LAV(MOD-bp) Indexed: 18.0 ml/m2 EDV(MOD-sp4): 42.2 ml LAV(MOD-sp2): 38.9 ml EDV(sp4-el): 42.1 ml LAV(MOD-sp4): 26.3 ml LVAs ap4: 9.8 cm2 ESV(MOD-sp4): 15.4 ml ESV(sp4-el): 14.5 ml EF(MOD-sp4): 63.6 % EF(sp4-el): 65.6 % SV(sp4-el): 27.7 ml LA A4 area: 13.4 cm2 LA dimension(2D): 4.1 cm RA A4 area: 13.0 cm2 Doppler Measurements & Calculations MV E max zuhair: 85.7 cm/sec Lat Peak E' Zuhair: 6.2 cm/sec Med Peak E' Zuhair: 4.3 cm/sec MV A max zuhair: 67.9 cm/sec E/E' lat: 13.8 E/E' med: 19.8 MV E/A: 1.3 Ao V2 max: 143.0 cm/sec LV V1 max: 116.2 cm/sec PA V2 max: 91.3 cm/sec Ao max P.2 mmHg LV V1 max P.4 mmHg Ao V2 mean: 99.6 cm/sec Ao mean P.4 mmHg Ao V2 VTI: 31.5 cm PI end-d zuhair: 95.1 cm/sec TR max zuhair: 222.9 cm/sec TR max P.9 mmHg Interpretation Summary Normal LV size. Moderate concentric left ventricular hypertrophy. The estimated ejection fraction is 65 %. Stage 2 diastolic dysfunction. Mild (1+) eccentric mitral valve insufficiency. Mild (1+) tricuspid valve insufficiency. Trivial aortic valve insufficiency. Ordering Physician: Starr Sanchez Referring Physician: Sally Irvin Performed By: Roxanne Ortega, DEMI, RVT
--- NOTE | 2019-04-08 15:21 | EKG12_ITS ---
Test Reason : Blood Pressure : / mmHG Vent. Rate : 066 BPM Atrial Rate : 066 BPM P-R Int : 152 ms QRS Dur : 074 ms QT Int : 434 ms P-R-T Axes : 032 011 076 degrees QTc Int : 454 ms Normal sinus rhythm Possible Left atrial enlargement Borderline ECG When compared with ECG of 14-JAN-2018 15:23, No significant change was found Confirmed by CINDY PIMENTEL ([id number]), health editor ONUR COMBS ([id number] on 04/15/2019 11:53:25 AM Referred By: TORI Confirmed By:CINDY PIMENTEL
[2019-04-08 15:45] LABS: Magnesium 2.4 mg/dL (1.6-2.6)
[2019-04-08] MEDS: Morphine 2 MG/ML Syringe IV (16:18)
[2019-04-08] MEDS: 0.9% Saline Lock 10 ML Syringe IV ×2 (16:18→19:11)
[2019-04-08] MEDS: HYDROcodone Bitartrate/Apap 5/325 Tablet PO (18:54)
[2019-04-08] MEDS: hydrALAZINE 20 MG/ML Vial 10 MG IV ×2 (19:10→23:13)
[2019-04-08] MEDS: Gabapentin 300 MG Capsule PO (21:23)
[2019-04-08] MEDS: predniSONE 20 MG Tablet PO (21:24)
[2019-04-08] MEDS: Doxazosin 1 MG Tablet 2 MG PO (21:32)
[2019-04-08] MEDS: Citalopram 20 MG Tablet PO (23:55)
[2019-04-09] VITALS (14 sets, daily range): BP systolic 125–181; BP diastolic 63–86; PULSE 62–96; RESP 16–20; TEMP 36.4–36.8; O2SAT 93–98
[2019-04-09] MEDS: HYDROcodone Bitartrate/Apap 5/325 Tablet PO ×5 (00:21→21:50)
[2019-04-09] MEDS: 0.9% Saline Lock 10 ML Syringe IV ×4 (05:50→19:22)
[2019-04-09] MEDS: Losartan Potassium 100 MG Tablet PO (05:50)
[2019-04-09] MEDS: Gabapentin 300 MG Capsule PO ×3 (05:50→21:38)
[2019-04-09] MEDS: Aspirin E.C. 81 MG Tablet PO (05:51)
--- NOTE | 2019-04-09 05:55 | EKG12_ITS ---
Test Reason : AM EKG Blood Pressure : / mmHG Vent. Rate : 076 BPM Atrial Rate : 076 BPM P-R Int : 148 ms QRS Dur : 076 ms QT Int : 424 ms P-R-T Axes : 055 038 088 degrees QTc Int : 477 ms Normal sinus rhythm Nonspecific ST and T wave abnormality Abnormal ECG When compared with ECG of 08-APR-2019 15:40, MANUAL COMPARISON REQUIRED, DATA IS UNCONFIRMED Confirmed by CINDY PIMENTEL ([id number]), editorial assistant ONUR CMOBS ([id number] on 04/15/2019 11:53:55 AM Referred By: DR VALLE Confirmed By:CIDNY PIMENTEL
[2019-04-09 06:56] LABS: Absolute Neutrophil Count 6.8 X10^3/uL (2.0-7.7); Basophil# 0.02 X10^3/uL; Basophil% 0.2 % (0-1); Eosinophil# 0.01 X10^3/uL; Eosinophils% 0.1 % (0-5); Hematocrit 41.2 % (37-47); Hemoglobin 13.5 g/dL (12.0-15.0); Lymphocyte % 18.3 % (19-41); Mean Corp Hgb Conc 32.8 g/dL (32-36); Mean Corpuscular Hgb 30.1 pg (27.0-32.0); Mean Corpuscular Volume 91.8 fL (81-99); Mean Platelet Vol. 10.4 fl (6.2-12.0); Monocyte# 0.34 X10^3/uL; Monocyte% 3.9 % (0-10); NRBC Flagged by Analyzer 0 % (0-5); Neutrophil # 6.75 X10^3/uL (2.7-7.7); Neutrophil % 77.2 % (47-70); Platelet Count 219 K/mm3 (150-450); RBC Distribution Width CV 12.7 % (11.6-14.6); RBC Distribution Width SD 42.8 fl (35.1-43.9); Red Blood Count 4.49 M/mm3 (4.2-5.4); White Blood Count 8.8 K/mm3 (4.4-11.0)
[2019-04-09 07:30] LABS: Anion Gap 7 (5-15); BUN 18 mg/dL (7-18); Calcium,Total 8.6 mg/dL (8.5-10.1); Chloride 111 mmol/L (98-107); Cholesterol 219 mg/dL (200); Creatinine, Serum 0.86 mg/dL (0.55-1.02); EST Glomerular Filtration Rate 69 mL/min (>60); Est Glom Filt Rate - Afr Amer 84 mL/min (>60); Estimated Creatinine Clearance 50.31 ml/min; Glucose 115 mg/dL (74-106); High Density Lipoprotein 43 mg/dL; Potassium 4.1 mmol/L (3.5-5.1); Sodium Level 143 mmol/L (136-145); Triglycerides 91 mg/dL; Very Low Density Lipoprotein 18 mg/dL (5-40)
[2019-04-09] MEDS: Morphine 2 MG/ML Syringe IV ×2 (09:20→19:22)
--- NOTE | 2019-04-09 10:59 | STRESSREP_ITS ---
Stress Test Report Pharmacologic myocardial perfusion stress test. 74-year-old lady with a history of coronary artery disease and status post bypass surgery and chest pain. Stress protocol: Resting EKG demonstrates normal sinus rhythm with a rate of [address] changes noted. Resting blood pressures 144/78 mmHg. 0.4 mg of regadenoson was infused per usual protocol followed by rapid intravenous and flush injection continuous EKG monitoring was performed. The maximum heart rate attained was 94 bpm which was 63% of maximum predicted heart rate the maximum workload was 1 metabolic equivalent. At peak infusion nonspecific ST changes were noted. Resting blood pressures 144/78 peak blood pressure of 158/82. Myocardial perfusion protocol. 12.0 mCi of technetium 99m sestamibi was injected at rest. 0.4 mg of regadenoson was infused per usual protocol peak infusion 36.0 mCi of technetium 99m sestamibi was injected stress images were obtained stress and rest images were reconstructed and compared in the short axis vertical and horizontal long axis. Gated images were also obtained Perfusion SPECT analysis: Review of the stress images demonstrate normal uptake of tracer noted in the septum anterior wall and lateral wall. The basal inferior wall demonstrates reduced perfusion noted which appears to improve on the resting images kwan ggesting basal inferior ischemia present. No previous infarct is noted. Gated SPECT analysis: The gated ejection fraction is noted to be 71%. Conclusion: Abnormal pharmacologic myocardial perfusion stress test with evidence of inferior ischemia. Preserved ejection fraction.
[2019-04-09] MEDS: predniSONE 20 MG Tablet PO ×2 (12:09→17:20)
--- NOTE | 2019-04-09 12:23 | PN_ITS ---
<Sarita Stringer - Last Filed: 04/09/19 12:43> Patient Problems: Active and Suspected Problems (Last Reviewed 04/08/19 @ 17:43 by Starr Sanchez DO) History of coronary artery disease (Acute) History of hypertension (Acute) Unstable angina (Acute) Neuropathy (Acute) Subjective: Patient seen and examined. Undergoing echocardiogram. Reports continued intermittent chest tightness and shortness of breath, worse with exertion. Patient reports she became symptomatic during stress test this morning. Stress test reported to be abnormal. Cardiology consult placed. - Physical Exam Vitals/I&O's: Vital Signs Temp Pulse Resp BP Pulse Ox 98.0 F 64 16 159/73 H 93 04/09/19 08:33 04/09/19 10:32 04/09/19 08:33 04/09/19 10:32 04/09/19 08:33 Oxygen Delivery Method Room Air Weight: 179 lb 3.2 oz Body Mass Index (BMI) 30.7 Intake and Output for Last 24 Hours 04/07/19 04/08/19 04/09/19 23:59 23:59 23:59 Intake Total 690 / 690 Balance 690 / 690 General: Alert, Oriented x3, Cooperative HEENT: Atraumatic, PERRLA, EOMI, Normocephalic Neck: Supple, No JVD, Negative Carotid Bruits Lungs: Clear to auscultation, Normal air movement Cardiovascular: Regular rate, Regular Rhythm, Normal S1, Normal S2, Murmur Abdomen: Bowel Sounds Present, Soft, Non Tender, Non-Distended Extremities: No clubbing, No cyanosis, No edema, Capillary Refill Less than 3 Seconds Skin: No rashes, No breakdown Musculoskeletal: No Tenderness to Palpation of Joints or Extremities Neurological: Cranial nerves II-XII grossly intact, Neuro grossly intact Psych/Mental Status: Normal Affect, Appropriate Laboratory Results 04/08/19 11:10: Magnesium 2.4 04/08/19 19:00: Troponin I < 0.015 04/08/19 21:52: Troponin I < 0.015 04/09/19 00:58: Troponin I < 0.015 04/09/19 05:11: Sodium 143, Potassium 4.1, Chloride 111 H, Carbon Dioxide 25.0, Anion Gap 7, BUN 18, Creatinine 0.86, Estim Creat Clear Calc 50.31, Est GFR (MDRD) Af Amer 84, Est GFR (MDRD) Non-Af 69, BUN/Creatinine Ratio 21.0 H, Glucose 115 H, Calcium 8.6, Triglycerides 91, Cholesterol 219 H, LDL Cholesterol 158 H, VLDL Cholesterol 18, HDL Cholesterol 43 04/09/19 05:11: WBC 8.8, RBC 4.49, Hgb 13.5, Hct 41.2, MCV 91.8, MCH 30.1, MCHC 32.8, RDW Std Deviation 42.8, RDW Coeff of Fredo 12.7, Plt Count 219, MPV 10.4, Immature Gran % (Auto) 0.300, Neut % (Auto) 77.2 H, Lymph % (Auto) 18.3 L, Ogle % (Auto) 3.9, Eos % (Auto) 0.1, Baso % (Auto) 0.2, Absolute Neuts (auto) 6.8, Absolute Lymphs (auto) 1.60, Nucleated RBC % 0 Current Medications Hydrocodone Bitart/Acetaminophen (Lowgap 5mg-325mg) 1 tablet PO Q4H PRN PRN PRN Reason: pain 3-7 Last Admin: 04/09/19 12:09 Dose: 1 tablet Documented by: Al Hydroxide/Mg Hydroxide (Mylanta Ii) 30 ml PO Q6H PRN PRN PRN Reason: Gastric Burning Aspirin (Ecotrin) 81 mg PO DAILY@0800 [facility] Last Admin: 04/09/19 05:51 Dose: 81 mg Documented by: Citalopram Hydrobromide (Celexa) 20 mg PO QHS [facility] Last Admin: 04/08/19 23:55 Dose: 20 mg Documented by: Doxazosin Mesylate (Cardura) 2 mg PO QHS [facility] Last Admin: 04/08/19 21:32 Dose: 2 mg Documented by: Enoxaparin Sodium (Lovenox) 40 mg SC DAILY@1000 [facility] Gabapentin (Neurontin) 300 mg PO TID [facility] Last Admin: 04/09/19 05:50 Dose: 300 mg Documented by: Hydralazine HCl (Apresoline Iv) 10 mg IV Q4H PRN PRN PRN Reason: sys>150 AVITIA>85 Last Admin: 04/08/19 19:10 Dose: 10 mg Documented by: Losartan Potassium (Cozaar) 100 mg PO DAILY [facility] Last Admin: 04/09/19 05:50 Dose: 100 mg Documented by: Magnesium Hydroxide (Milk Of Magnesia) 30 ml PO DAILY PRN PRN PRN Reason: Constipation Melatonin (Melatonin) 3 mg PO QHS PRN PRN PRN Reason: INSOMNIA Methocarbamol (Robaxin) 500 mg PO TID PRN PRN PRN Reason: MUSCLE RELAXER Morphine Sulfate () 2 mg IV Q3H PRN PRN PRN Reason: Pain Score 8-10/10 Last Admin: 04/09/19 09:20 Dose: 2 mg Documented by: Nitroglycerin (Nitrostat) 0.4 mg SUBLINGUAL Q5M PRN PRN Reason: CARDIAC/CHEST PAIN Ondansetron HCl (Zofran) 4 mg IV Q8H PRN PRN PRN Reason: NAUSEA/VOMITING [facility] () [facility]; Taper Stop: 04/20/19 19:59 Last Admin: 04/09/19 12:09 Dose: 20 mg Documented by: Sodium Chloride () 10 - 40 ml IV UD PRN PRN Reason: SALINE FLUSH Last Admin: 04/09/19 09:20 Dose: 10 ml Documented by: Medical Necessity - Tobacco Use Smoking Status: Former smoker Tobacco Use: Cigarettes Assessment/Plan All Active Problems (Last Reviewed 04/08/19 @ 17:43 by Starr Sanchez DO) History of coronary artery disease (Acute) History of hypertension (Acute) Unstable angina (Acute) Neuropathy (Acute) Brain tumor (benign) (Resolved) 1. Chest pain, abnormal stress test-EKG with nonspecific ST changes. Troponin negative. Patient underwent nuclear stress test which demonstrated basal inferior ischemia. Gated ejection fraction 71%. Echocardiogram completed, report pending. Cardiology consult placed. Continue aspirin, add statin. 2. CAD with history of CABG x3 in 2006-continue aspirin, statin added. 3. Hypertension-significantly elevated on admission. Blood pressure now stable. Continue home losartan regimen. Initiated on Cardura on admission as well. 4. Hyperlipidemia-initiated on statin. 5. History of benign brain tumor status post excision/history of skin cancer (not melanoma) 6. GERD/history of peptic ulcer disease-not on regimen. 7. Arthritis/fibromyalgia/bilateral lower extremity neuropathy-continue gabapentin, PRN pain regimen. DVT prophylaxis- Lovenox sc This patient was seen by HENRIK Hernandez under the supervision of Dr. Stuart. <Aliya Stuart - Last Filed: 04/09/19 19:18> - Physical Exam Vitals/I&O's: Vital Signs Temp Pulse Resp BP Pulse Ox 98.0 F 78 20 H 180/86 H 98 04/09/19 15:11 04/09/19 18:39 04/09/19 15:11 04/09/19 18:39 04/09/19 15:11 Oxygen Delivery Method Room Air Weight: 81.284 kg Body Mass Index (BMI) 30.7 Intake and Output for Last 24 Hours 04/07/19 04/08/19 04/09/19 23:59 23:59 23:59 Intake Total 690 / 690 220 / 220 Balance 690 / 690 220 / 220 Laboratory Results 04/08/19 19:00: Troponin I < 0.015 04/08/19 21:52: Troponin I < 0.015 04/09/19 00:58: Troponin I < 0.015 04/09/19 05:11: Sodium 143, Potassium 4.1, Chloride 111 H, Carbon Dioxide 25.0, Anion Gap 7, BUN 18, Creatinine 0.86, Estim Creat Clear Calc 50.31, Est GFR (MDRD) Af Amer 84, Est GFR (MDRD) Non-Af 69, BUN/Creatinine Ratio 21.0 H, Glucose 115 H, Calcium 8.6, Triglycerides 91, Cholesterol 219 H, LDL Cholesterol 158 H, VLDL Cholesterol 18, HDL Cholesterol 43 04/09/19 05:11: WBC 8.8, RBC 4.49, Hgb 13.5, Hct 41.2, MCV 91.8, MCH 30.1, MCHC 32.8, RDW Std Deviation 42.8, RDW Coeff of Fredo 12.7, Plt Count 219, MPV 10.4, Immature Gran % (Auto) 0.300, Neut % (Auto) 77.2 H, Lymph % (Auto) 18.3 L, Ogle % (Auto) 3.9, Eos % (Auto) 0.1, Baso % (Auto) 0.2, Absolute Neuts (auto) 6.8, Absolute Lymphs (auto) 1.60, Nucleated RBC % 0 Current Medications Hydrocodone Bitart/Acetaminophen (Lowgap 5mg-325mg) 1 tablet PO Q4H PRN PRN PRN Reason: pain 3-7 Last Admin: 04/09/19 17:20 Dose: 1 tablet Documented by: Al Hydroxide/Mg Hydroxide (Mylanta Ii) 30 ml PO Q6H PRN PRN PRN Reason: Gastric Burning Amlodipine Besylate (Norvasc) 5 mg PO DAILY [facility] Aspirin (Ecotrin) 81 mg PO DAILY@0800 [facility] Last Admin: 04/09/19 05:51 Dose: 81 mg Documented by: Atorvastatin Calcium (Lipitor) 40 mg PO QHS [facility] Citalopram Hydrobromide (Celexa) 20 mg PO QHS [facility] Last Admin: 04/08/19 23:55 Dose: 20 mg Documented by: Clopidogrel Bisulfate (Plavix) 75 mg PO DAILY [facility] Enoxaparin Sodium (Lovenox) 40 mg SC DAILY@1000 [facility] Last Admin: 04/09/19 13:17 Dose: Not Given Documented by: Gabapentin (Neurontin) 300 mg PO TID [facility] Last Admin: 04/09/19 15:26 Dose: 300 mg Documented by: Hydralazine HCl (Apresoline Iv) 10 mg IV Q4H PRN PRN PRN Reason: sys>150 AVITIA>85 Last Admin: 04/09/19 18:39 Dose: 10 mg Documented by: Losartan Potassium (Cozaar) 100 mg PO DAILY [facility] Last Admin: 04/09/19 05:50 Dose: 100 mg Documented by: Magnesium Hydroxide (Milk Of Magnesia) 30 ml PO DAILY PRN PRN PRN Reason: Constipation Melatonin (Melatonin) 3 mg PO QHS PRN PRN PRN Reason: INSOMNIA Methocarbamol (Robaxin) 500 mg PO TID PRN PRN PRN Reason: MUSCLE RELAXER Metoprolol Succinate (Toprol Xl (Beta Hermelindo)) 50 mg PO DAILY [facility] Morphine Sulfate () 2 mg IV Q3H PRN PRN PRN Reason: Pain Score 8-10/10 Last Admin: 04/09/19 09:20 Dose: 2 mg Documented by: Nitroglycerin (Nitrostat) 0.4 mg SUBLINGUAL Q5M PRN PRN Reason: CARDIAC/CHEST PAIN Ondansetron HCl (Zofran) 4 mg IV Q8H PRN PRN PRN Reason: NAUSEA/VOMITING Prednisone () 20 mg PO BIDCM [facility]; Taper Stop: 04/20/19 19:59 Last Admin: 04/09/19 17:20 Dose: 20 mg Documented by: Sodium Chloride () 10 - 40 ml IV UD PRN PRN Reason: SALINE FLUSH Last Admin: 04/09/19 18:38 Dose: 10 ml Documented by: Assessment/Plan This patient was seen in conjunction with Sarita Stringer [employer]IEF COMPRESSOR [employer]ATION ENGINEER. I have independently interviewed and examined the patient and reviewed pertinent historical, laboratory, and other data. Please refer to her note for patient's presentation, findings, and recommendations. Patient was seen and examined. She complains of persistent chest pain. Stress test was positive for basal inferior ischemia. Cardiology was consulted, started on aspirin with statin. Cardiac cath planned for Thursday Blood pressure remains uncontrolled. Started on amlodipine and continued on losartan and Cardura Physical Exam: Gen: Appears anxious, not pale, not jaundiced, alert oriented x3 CVS:HS I +II, regular, no murmurs RESP: Clinically clear to auscultation GI: BS present and normal, nontender, no palpable organs EXT:No edema Labs reviewed: ASSESSMENT: 1. Chest pain, abnormal stress test 2. Uncontrolled hypertension 3. Hyperlipidemia 4. CAD status post CABG 5. GERD Meds reviewed Plan: We will continue to monitor on the current medications Continue per cardiology recommendations Code Visit Inpatient E&M: 45513 Subs Hosp L2
--- NOTE | 2019-04-09 13:58 | CON.PCM_ITS ---
Reason for Consult Date of Consultation: 04/09/19 Reason for Consultation: Chest discomfort History of Present Illness: The patient is a 74 year old F with a past medical history of hypertension, coronary artery disease status post coronary bypass surgery in 2006 who presented to the emergency room on account of chest discomfort. She says that it usually starts in her back and then comes to the front of her chest and then goes to her jaws. She has had this for a few months but it has been getting increasingly worse. She also notices it with her blood pressure elevation. She was previously being followed up in [place] by Dr. Parviz Ayala but she recently has been seeing only the nurse practitioner. She has not had any dizziness or diaphoresis no near syncope or syncope she has been compliant with her medications. She presented to the emergency room and due to her chest d iscomfort she was admitted to the telemetry unit. Cardiac enzymes were noted to be normal she underwent a myocardial perfusion stress test which demonstrated evidence of inferior ischemia. Cardiology was called for follow-up. She currently is pain-free. She has had no dizziness or diaphoresis no near syncope or syncope has not had any palpitations and has not had any bleeding diatheses. [] Past Medical History Allergies/Adverse Reactions: Allergies isometheptene [From Midrin] Allergy (Verified 04/08/19 15:31) shaking Sulfa (Sulfonamide Antibiotics) Allergy (Verified 04/08/19 15:31) throat Swelling codeine Adverse Reaction (Verified 04/08/19 10:12) Nausea/Vom/Diarrhea dichloralphenazone [From Midrin] Adverse Reaction (Verified 04/08/19 15:35) shaking ibuprofen Adverse Reaction (Verified 04/08/19 15:35) stomachaches topiramate [From Topamax] Adverse Reaction (Verified 04/08/19 15:35) I felt crazy Home Medications: Ambulatory Orders Medication Instructions Recorded Citalopram [Celexa] 20 mg PO DAILY 02/18/16 Oxycodone HCl/Acetaminophen 1 tab PO 4X/DAY 01/14/18 [Oxycodon-Acetaminophen 7.5-325] methocarbamol 500 mg tablet 500 mg PO TID PRN PRN 09/27/18 Gabapentin [Neurontin] 300 mg PO TID 04/08/19 Losartan Potassium 100 mg PO DAILY 04/08/19 Prednisone See Taper PO DAILY 04/08/19 Past Medical History (Chronic Problems): Chronic Problems (Last Reviewed 04/08/19 @ 17:43 by Starr Sanchez DO) S/P CABG x 3 (Chronic) 2006 GERD (gastroesophageal reflux disease) (Chronic) Tobacco dependence in remission (Chronic) quit smoking at 61 YOA Leg cramps (Chronic) HTN (hypertension) (Chronic) Arthritis (Chronic) Fibromyalgia (Chronic) Chronic low back pain (Chronic) CAD (coronary artery disease) (Chronic) Surgical History: coronary bypass surgery - 2007, total knee arthroplasty - left Psychiatric History: No pertinent psych hx 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 FAther with IA at 85 YOA Lives: Spouse/ Significant Other Smoking Status: Former smoker Tobacco Use: Cigarettes Alcohol: None Drugs: None Review of Systems - Review of Systems General: Denies: Fever, Night Sweats, Fatigue HEENT: Denies: Vision Change Cardiovascular: Reports: Chest Discomfort, Chest Discomfort at Rest, Chest Discomfort with Exertion, Chest Pressure. Denies: Shortness of Breath, Orthopnea, PND, Peripheral Edema, Palpitations, Lightheadedness, Dizziness, Near Syncope, Syncope Respiratory: Denies: Cough, Sputum Production, Hemoptysis Gastrointestinal: Denies: Hematemesis, Hematochezia, Melena Genitourinary: Denies: Dysuria, Hematuria Muscoloskeletal: Reports: Myalgias, Back Pain, Shoulder Pain Skin: Denies: Rash Neurological: Denies: Dizziness Psychiatric: Denies: Anxiety Endocrine: Denies: Unexplained Weight Loss Hematologic/ Lymphatic: Denies: Anemia Subjectve: Pleasant lady in no distress Objective: Vital Signs Temp Pulse Resp BP Pulse Ox 98.0 F 62 16 159/73 H 93 04/09/19 08:33 04/09/19 11:54 04/09/19 08:33 04/09/19 10:32 04/09/19 08:33 Oxygen Delivery Method Room Air Weight: 179 lb 3.2 oz Body Mass Index (BMI) 30.7 Intake and Output for Last 24 Hours 04/07/19 04/08/19 04/09/19 23:59 23:59 23:59 Intake Total 690 / 690 210 / 210 Balance 690 / 690 210 / 210 General: Awake, Alert, Oriented x 3 HEENT: PERRL, EOMI, Sclera Non Icteric Neck: Supple, Good ROM, No Lymph Node Enlargement Lungs: Clear to auscultation Cardiovascular: Regular Rhythm, Normal S1, Normal S2, No Murmurs, No Rubs, No Gallops Vascular: No Carotid Bruits, Normal Femoral Pulses, Normal Radial Pulses, Normal Dorsalis Pedal Pulse, Normal Posterior Tibial Pulses Abdomen: Bowel Sounds Present, Soft, Non Tender, No HSM, No Organomegaly Extremities: No Cyanosis, No Clubbing, No edema Musculoskeletal: No Erythema Skin: No Rashes Lymphatic: No Lymph Node Enlargement Neurological: No Focal Motor or Sensory Deficit Psych/Mental Status: Appropriate 04/08/19 11:10: Magnesium 2.4 04/08/19 19:00: Troponin I < 0.015 04/08/19 21:52: Troponin I < 0.015 04/09/19 00:58: Troponin I < 0.015 04/09/19 05:11: Sodium 143, Potassium 4.1, Chloride 111 H, Carbon Dioxide 25.0, Anion Gap 7, BUN 18, Creatinine 0.86, Est GFR (MDRD) Af Amer 84, Est GFR (MDRD) Non-Af 69, BUN/Creatinine Ratio 21.0 H, Glucose 115 H, Calcium 8.6, Triglycerides 91, Cholesterol 219 H, LDL Cholesterol 158 H, VLDL Cholesterol 18, HDL Cholesterol 43 04/09/19 05:11: WBC 8.8, RBC 4.49, Hgb 13.5, Hct 41.2, MCV 91.8, MCH 30.1, MCHC 32.8, Plt Count 219, MPV 10.4, Immature Gran % (Auto) 0.300, Neut % (Auto) 77.2 H, Lymph % (Auto) 18.3 L, [place] % (Auto) 3.9, Eos % (Auto) 0.1, Baso % (Auto) 0.2, Absolute Neuts (auto) 6.8, Nucleated RBC % 0 Rhythm: EKG: Normal sinus rhythm no acute changes ECHO: Stress Test: Pharmacologic myocardial perfusion stress test with evidence of inferior ischemia Assessment/Plan 1. Chest pain with abnormal stress test * Patient presents with chest discomfort with some features which are typical for angina and an abnormal stress test. She does have coronary artery risk factors as well as bypass surgery which at 13 years old. * Based on the above I would recommend that we reevaluate the above with a cardiac catheterization. The risk benefits alternatives have been explained to her she understands and agrees to proceed and this will be carried out on Thursday. * 2. Hypertension * Her blood pressure appears to be uncontrolled at this particular time. My recommendation would be for us to add a beta-kedar to her regimen * Discontinue the doxazosin * Add amlodipine 5 mg a day * Continue losartan * Her echocardiogram demonstrates preserved ejection fraction with stage II diastolic dysfunction 3. Status post coronary artery bypass surgery * We will attempt to obtain results of bypass surgery from [facility] * Further recommendations will depend on the above * 4. Risk factor modification * And will continue with aggressive risk factor modification * Continue statin use. * * Thank you for allowing me to participate in the care of your patient. Please don't hesitate to call if any issues arise
[2019-04-09] MEDS: amLODIPine 5 MG Tablet PO (15:26)
[2019-04-09] MEDS: Clopidogrel Bisulfate 300 MG Tablet PO (15:26)
--- NOTE | 2019-04-09 18:12 | CM.UR ---
RN CM Assessment Introduced role of RN CM to patient. Patient is alert and able to participate in RN CM Assessment. Care providers, pharmacy, and demographics verified. and daughter arrived as I was doing assmt. Presentation: chest pressure Admit Dx: Unstable angina Re-Admit: no Barriers/Issues: denial PCP: Brand[facility] Specialists: Dr. Ayala (cardio) he retired but she still goes to that office & sees [employer]. Considering changing to Dr. Smith Preferred Pharmacy: [facility] Insurance: [employer]na MCR Rx Benefit: Yes A[employer]na MCR LNOK: Vincent LW/HPOA: None, booklet given. Living Arrangements: Lives in 2 story home with first floor master and bathroom. Lives with and son. ADL?s: Independent. Transportation: self DME: [employer] D[employer] co: No preference. HHC: Yes after previous [place] but can't remember the agency. SNF: None Goal: Home DC PLAN: Home, NN anticipated. Lennox Moore RN, CCM.
[2019-04-09] MEDS: hydrALAZINE 20 MG/ML Vial 10 MG IV (18:39)
--- NOTE | 2019-04-09 19:10 | EKG12_ITS ---
Test Reason : CHEST PAIN Blood Pressure : / mmHG Vent. Rate : 090 BPM Atrial Rate : 090 BPM P-R Int : 136 ms QRS Dur : 074 ms QT Int : 388 ms P-R-T Axes : 047 036 067 degrees QTc Int : 474 ms Normal sinus rhythm Nonspecific ST abnormality Abnormal ECG When compared with ECG of 09-APR-2019 05:28, MANUAL COMPARISON REQUIRED, DATA IS UNCONFIRMED Confirmed by CINDY PIMENTEL ([id number]), production editor ONUR COMBS ([id number]) on 04/15/2019 11:56:56 AM Referred By: TORI Confirmed By:CINDY PIMENTEL
--- NOTE | 2019-04-09 19:15 | NURSING ---
Patient calls out complaining of chest pain 11/24 radiating into her back. Vitals obtained. BP 170/86- 87-20-100% RA. EKG ordered and obtained. Results sent to Dr. Smith and Dr. Hamlin for review. Primary site leasing agent RN made aware of same. Morphine 2mg IV given.
--- NOTE | 2019-04-09 19:26 | PCM.HOSP.N ---
Hospitalist Note Patient with chest pain. EKG obtained and pending trop repeat per RN. Concern for precordial lead ST elevation. EKG compared with prior, similar appearance from admission. Cortexted to Dr. Smith who has evaluated patient to assure no concerns.
[2019-04-09] MEDS: Atorvastatin Calcium 40 MG Tablet PO (21:39)
[2019-04-09] MEDS: Citalopram 20 MG Tablet PO (21:39)
[2019-04-09] MEDS: MELATONIN 3 MG TABLET PO (21:43)
[2019-04-09] MEDS: Senna/Docusate Sodium 1 Tablet PO (22:20)
[2019-04-10] VITALS (10 sets, daily range): BP systolic 135–169; BP diastolic 63–88; PULSE 58–77; RESP 16–18; TEMP 36.1–36.8; O2SAT 93–98
[2019-04-10] MEDS: Gabapentin 300 MG Capsule PO ×3 (07:10→22:44)
[2019-04-10] MEDS: Enoxaparin 40 MG/0.4 ML Syringe SC (08:43)
[2019-04-10] MEDS: Losartan Potassium 100 MG Tablet PO (08:43)
[2019-04-10] MEDS: Aspirin E.C. 81 MG Tablet PO (08:43)
[2019-04-10] MEDS: amLODIPine 5 MG Tablet PO (08:43)
[2019-04-10] MEDS: predniSONE 20 MG Tablet PO ×2 (08:44→17:17)
[2019-04-10] MEDS: Metoprolol(XL)Succ 50 MG Tablet PO (08:44)
[2019-04-10] MEDS: Clopidogrel Bisulfate 75 MG Tablet PO (08:44)
--- NOTE | 2019-04-10 09:14 | PN.CARD_ITS ---
Subjectve: Patient seen and evaluated Objective: Vital Signs Temp Pulse Resp BP Pulse Ox 97 F L 77 16 169/76 H 96 04/10/19 08:37 04/10/19 08:44 04/10/19 08:37 04/10/19 08:44 04/10/19 08:37 Oxygen Delivery Method Room Air Weight: 179 lb 3.2 oz Body Mass Index (BMI) 30.7 Intake and Output for Last 24 Hours 04/08/19 04/09/19 04/10/19 23:59 23:59 23:59 Intake Total 690 / 690 220 / 220 Balance 690 / 690 220 / 220 General: Awake, Alert, Oriented x 3 HEENT: PERRL, EOMI, Sclera Non Icteric Neck: Supple, Good ROM, No Lymph Node Enlargement Lungs: Clear to auscultation Cardiovascular: Regular Rhythm, Normal S1, Normal S2, No Murmurs, No Rubs, No Gallops Vascular: No Carotid Bruits, Normal Femoral Pulses, Normal Radial Pulses, Normal Dorsalis Pedal Pulse, Normal Posterior Tibial Pulses Abdomen: Bowel Sounds Present, Soft, Non Tender, No HSM, No Organomegaly Extremities: No Cyanosis, No Clubbing, No edema Musculoskeletal: No Erythema Skin: No Rashes Lymphatic: No Lymph Node Enlargement Neurological: No Focal Motor or Sensory Deficit Psych/Mental Status: Appropriate 04/09/19 19:35: Troponin I < 0.015 Rhythm: EKG: ECHO: Stress Test: Cardiac Cath: PCI: CT Surgery: Holter monitor: EPS: PPM: CXR: Chest CT Scan: Medical Necessity - Tobacco Use Smoking Status: Former smoker Tobacco Use: Cigarettes Assessment/Plan 1. Chest pain with abnormal stress test * Patient presents with chest discomfort with some features which are typical for angina and an abnormal stress test. She does have coronary artery risk factors as well as bypass surgery which at 13 years old. The bypass reports as noted below. * Based on the above I would recommend that we reevaluate the above with a cardiac catheterization. The risk benefits alternatives have been explained to her she understands and agrees to proceed and this will be carried out on Thursday. * 2. Hypertension * Her blood pressure appears to be better controlled at this particular time. My recommendation would be for us to add a beta-kedar to her regimen * Discontinue the doxazosin * amlodipine 5 mg a day * Continue losartan * Her echocardiogram demonstrates preserved ejection fraction with stage II diastolic dysfunction 3. Status post coronary artery bypass surgery * The patient had a left internal mammary artery to the left anterior descending artery, and a sequential saphenous vein graft to the left circumflex and left posterior descending artery. * 4. Risk factor modification * And will continue with aggressive risk factor modification * Continue statin use. * * Thank you for allowing me to participate in the care of your patient. Please don't hesitate to call if any issues arise
--- NOTE | 2019-04-10 09:45 | CASEMGMT ---
Insurance review for [facility] facilities if transfer to tertiary care is recommended. [facility], [facility], [facility], , [facility], [facility].
[2019-04-10] MEDS: HYDROcodone Bitartrate/Apap 5/325 Tablet PO ×2 (10:18→17:17)
[2019-04-10] MEDS: amLODIPine 10 MG Tablet PO (10:18)
--- NOTE | 2019-04-10 11:04 | PN_ITS ---
<Sarita Stringer - Last Filed: 04/10/19 11:15> Patient Problems: Active and Suspected Problems (Last Reviewed 04/08/19 @ 17:43 by Starr Sanchez DO) History of coronary artery disease (Acute) History of hypertension (Acute) Unstable angina (Acute) Neuropathy (Acute) Subjective: Patient seen and examined. Reports episode of chest pain around 7 PM last evening. Denies further chest pain overnight. Reports mild headache which she states she has continuously at baseline. Denies other current symptoms. Plan for cath in a.m. - Physical Exam Vitals/I&O's: Vital Signs Temp Pulse Resp BP Pulse Ox 97 F L 77 16 169/76 H 96 04/10/19 08:37 04/10/19 08:44 04/10/19 08:37 04/10/19 08:44 04/10/19 08:37 Oxygen Delivery Method Room Air Weight: 179 lb 3.2 oz Body Mass Index (BMI) 30.7 Intake and Output for Last 24 Hours 04/08/19 04/09/19 04/10/19 23:59 23:59 23:59 Intake Total 690 / 690 220 / 220 Balance 690 / 690 220 / 220 General: Alert, Oriented x3, Cooperative HEENT: Atraumatic, PERRLA, EOMI, Normocephalic Neck: Supple, No JVD, Negative Carotid Bruits Lungs: Clear to auscultation, Normal air movement Cardiovascular: Regular rate, Regular Rhythm, Normal S1, Normal S2, Murmur Abdomen: Bowel Sounds Present, Soft, Non Tender, Non-Distended Extremities: No clubbing, No cyanosis, No edema, Capillary Refill Less than 3 Seconds Skin: No rashes, No breakdown Musculoskeletal: No Tenderness to Palpation of Joints or Extremities Neurological: Cranial nerves II-XII grossly intact, Neuro grossly intact Psych/Mental Status: Normal Affect, Appropriate Laboratory Results 04/09/19 19:35: Troponin I < 0.015 Current Medications Hydrocodone Bitart/Acetaminophen ([place] 5mg-325mg) 1 tablet PO Q4H PRN PRN PRN Reason: pain 3-7 Last Admin: 04/10/19 10:18 Dose: 1 tablet Documented by: Al Hydroxide/Mg Hydroxide (Mylanta Ii) 30 ml PO Q6H PRN PRN PRN Reason: Gastric Burning Amlodipine Besylate (Norvasc) 10 mg PO DAILY [facility] Last Admin: 04/10/19 10:18 Dose: 5 mg Documented by: Aspirin (Ecotrin) 81 mg PO DAILY@0800 [facility] Last Admin: 04/10/19 08:43 Dose: 81 mg Documented by: Atorvastatin Calcium (Lipitor) 40 mg PO QHS [facility] Last Admin: 04/09/19 21:39 Dose: 40 mg Documented by: Citalopram Hydrobromide (Celexa) 20 mg PO QHS [facility] Last Admin: 04/09/19 21:39 Dose: 20 mg Documented by: Clopidogrel Bisulfate (Plavix) 75 mg PO DAILY [facility] Last Admin: 04/10/19 08:44 Dose: 75 mg Documented by: Enoxaparin Sodium (Lovenox) 40 mg SC DAILY@1000 [facility] Last Admin: 04/10/19 08:43 Dose: 40 mg Documented by: Gabapentin (Neurontin) 300 mg PO TID [facility] Last Admin: 04/10/19 07:10 Dose: 300 mg Documented by: Hydralazine HCl (Apresoline Iv) 10 mg IV Q4H PRN PRN PRN Reason: sys>150 AVITIA>85 Last Admin: 04/09/19 18:39 Dose: 10 mg Documented by: Sodium Chloride () 1,000 mls @ 0 mls/hr IV .Q0M [facility] Losartan Potassium (Cozaar) 100 mg PO DAILY [facility] Last Admin: 04/10/19 08:43 Dose: 100 mg Documented by: Magnesium Hydroxide (Milk Of Magnesia) 30 ml PO DAILY PRN PRN PRN Reason: Constipation Melatonin (Melatonin) 3 mg PO QHS PRN PRN PRN Reason: INSOMNIA Last Admin: 04/09/19 21:43 Dose: 3 mg Documented by: Methocarbamol (Robaxin) 500 mg PO TID PRN PRN PRN Reason: MUSCLE RELAXER Metoprolol Succinate (Toprol Xl (Beta Hermelindo)) 50 mg PO DAILY [facility] Last Admin: 04/10/19 08:44 Dose: 50 mg Documented by: Morphine Sulfate () 2 mg IV Q3H PRN PRN PRN Reason: Pain Score 8-10/10 Last Admin: 04/09/19 19:22 Dose: 2 mg Documented by: Nitroglycerin (Nitrostat) 0.4 mg SUBLINGUAL Q5M PRN PRN Reason: CARDIAC/CHEST PAIN Ondansetron HCl (Zofran) 4 mg IV Q8H PRN PRN PRN Reason: NAUSEA/VOMITING Prednisone () 20 mg PO BIDCM [facility]; Taper Stop: 04/20/19 19:59 Last Admin: 04/10/19 08:44 Dose: 20 mg Documented by: Psyllium Hydrophilic Mucilloid (Metamucil) 1 packet PO DAILY [facility] Last Admin: 04/10/19 08:39 Dose: Not Given Documented by: Senna/Docusate Sodium (Senokot-S, Rosalva-Colace) 1 tablet PO DAILY PRN PRN PRN Reason: CONSTIPATION Last Admin: 04/09/19 22:20 Dose: 1 tablet Documented by: Sodium Chloride () 10 - 40 ml IV UD PRN PRN Reason: SALINE FLUSH Last Admin: 04/09/19 19:22 Dose: 20 ml Documented by: Medical Necessity - Tobacco Use Smoking Status: Former smoker Tobacco Use: Cigarettes Assessment/Plan All Active Problems (Last Reviewed 04/08/19 @ 17:43 by Starr Sanchez DO) History of coronary artery disease (Acute) History of hypertension (Acute) Unstable angina (Acute) Neuropathy (Acute) Brain tumor (benign) (Resolved) 1. Chest pain, abnormal stress test-EKG with nonspecific ST changes. Troponin negative. Patient underwent nuclear stress test which demonstrated basal inferior ischemia. Gated ejection fraction 71%. Echocardiogram demonstrated an EF of 65%, stage II diastolic dysfunction, mild mitral valve insufficiency, mild tricuspid valve insufficiency. Cardiology consult placed. Plan for heart cath in a.m. Continue aspirin, statin, Plavix, beta-hermelindo. 2. CAD with history of CABG x3 in 2006-continue medical management as noted above. 3. Hypertension-Continue home losartan regimen. Amlodipine 10 mg daily and metoprolol 50 mg daily added. 4. Hyperlipidemia-initiated on statin. 5. History of benign brain tumor status post excision/history of skin cancer (not melanoma) 6. GERD/history of peptic ulcer disease-not on regimen. 7. Arthritis/fibromyalgia/bilateral lower extremity neuropathy-continue gabapentin, PRN pain regimen. DVT prophylaxis- Lovenox sc This patient was seen by HENRIK Hernandez under the supervision of Dr. Stuart. <Aliya Stuart - Last Filed: 04/10/19 11:21> - Physical Exam Vitals/I&O's: Vital Signs Temp Pulse Resp BP Pulse Ox 97 F L 77 16 169/76 H 96 04/10/19 08:37 04/10/19 08:44 04/10/19 08:37 04/10/19 08:44 04/10/19 08:37 Oxygen Delivery Method Room Air Weight: 81.284 kg Body Mass Index (BMI) 30.7 Intake and Output for Last 24 Hours 04/08/19 04/09/19 04/10/19 23:59 23:59 23:59 Intake Total 690 / 690 220 / 220 Balance 690 / 690 220 / 220 Laboratory Results 04/09/19 19:35: Troponin I < 0.015 Current Medications Hydrocodone Bitart/Acetaminophen ([place] 5mg-325mg) 1 tablet PO Q4H PRN PRN PRN Reason: pain 3-7 Last Admin: 04/10/19 10:18 Dose: 1 tablet Documented by: Al Hydroxide/Mg Hydroxide (Mylanta Ii) 30 ml PO Q6H PRN PRN PRN Reason: Gastric Burning Amlodipine Besylate (Norvasc) 10 mg PO DAILY [facility] Last Admin: 04/10/19 10:18 Dose: 5 mg Documented by: Aspirin (Ecotrin) 81 mg PO DAILY@0800 [facility] Last Admin: 04/10/19 08:43 Dose: 81 mg Documented by: Atorvastatin Calcium (Lipitor) 40 mg PO QHS [facility] Last Admin: 04/09/19 21:39 Dose: 40 mg Documented by: Citalopram Hydrobromide (Celexa) 20 mg PO QHS [facility] Last Admin: 04/09/19 21:39 Dose: 20 mg Documented by: Clopidogrel Bisulfate (Plavix) 75 mg PO DAILY [facility] Last Admin: 04/10/19 08:44 Dose: 75 mg Documented by: Enoxaparin Sodium (Lovenox) 40 mg SC DAILY@1000 [facility] Last Admin: 04/10/19 08:43 Dose: 40 mg Documented by: Gabapentin (Neurontin) 300 mg PO TID [facility] Last Admin: 04/10/19 07:10 Dose: 300 mg Documented by: Hydralazine HCl (Apresoline Iv) 10 mg IV Q4H PRN PRN PRN Reason: sys>150 AVITIA>85 Last Admin: 04/09/19 18:39 Dose: 10 mg Documented by: Sodium Chloride () 1,000 mls @ 0 mls/hr IV .Q0M [facility] Losartan Potassium (Cozaar) 100 mg PO DAILY [facility] Last Admin: 04/10/19 08:43 Dose: 100 mg Documented by: Magnesium Hydroxide (Milk Of Magnesia) 30 ml PO DAILY PRN PRN PRN Reason: Constipation Melatonin (Melatonin) 3 mg PO QHS PRN PRN PRN Reason: INSOMNIA Last Admin: 04/09/19 21:43 Dose: 3 mg Documented by: Methocarbamol (Robaxin) 500 mg PO TID PRN PRN PRN Reason: MUSCLE RELAXER Metoprolol Succinate (Toprol Xl (Beta Hermelindo)) 50 mg PO DAILY [facility] Last Admin: 04/10/19 08:44 Dose: 50 mg Documented by: Morphine Sulfate () 2 mg IV Q3H PRN PRN PRN Reason: Pain Score 8-10/10 Last Admin: 04/09/19 19:22 Dose: 2 mg Documented by: Nitroglycerin (Nitrostat) 0.4 mg SUBLINGUAL Q5M PRN PRN Reason: CARDIAC/CHEST PAIN Ondansetron HCl (Zofran) 4 mg IV Q8H PRN PRN PRN Reason: NAUSEA/VOMITING Prednisone () 20 mg PO BIDCM [facility]; Taper Stop: 04/20/19 19:59 Last Admin: 04/10/19 08:44 Dose: 20 mg Documented by: Psyllium Hydrophilic Mucilloid (Metamucil) 1 packet PO DAILY [facility] Last Admin: 04/10/19 08:39 Dose: Not Given Documented by: Senna/Docusate Sodium (Senokot-S, Rosalva-Colace) 1 tablet PO DAILY PRN PRN PRN Reason: CONSTIPATION Last Admin: 04/09/19 22:20 Dose: 1 tablet Documented by: Sodium Chloride () 10 - 40 ml IV UD PRN PRN Reason: SALINE FLUSH Last Admin: 04/09/19 19:22 Dose: 20 ml Documented by: Assessment/Plan This patient was seen in conjunction with Sarita Stringer NP. I have independently interviewed and examined the patient and reviewed pertinent historical, laboratory, and other data. Please refer to her note for patient's presentation, findings, and recommendations. Patient was seen and examined. She complains of persistent chest pain. She thinks this is related to anxiety Cardiac cath is tomorrow Physical Exam: Gen: Appears anxious, not pale, not jaundiced, alert oriented x3 CVS:HS I +II, regular, no murmurs RESP: Clinically clear to auscultation GI: BS present and normal, nontender, no palpable organs EXT:No edema Labs reviewed: ASSESSMENT: 1. Chest pain, abnormal stress test 2. Uncontrolled hypertension 3. Hyperlipidemia 4. CAD status post CABG 5. GERD Meds reviewed Plan: We will continue to monitor on the current medications Continue per cardiology recommendations Code Visit Inpatient E&M: 02209 Subs Hosp L2
[2019-04-10] MEDS: Citalopram 20 MG Tablet PO (22:43)
[2019-04-10] MEDS: Atorvastatin Calcium 40 MG Tablet PO (22:44)
[2019-04-10] MEDS: MELATONIN 3 MG TABLET PO (22:47)
[2019-04-10] MEDS: LORazepam 0.5 MG Tablet PO (22:47)
[2019-04-11] VITALS (24 sets, daily range): BP systolic 110–155; BP diastolic 41–71; PULSE 50–67; RESP 14–20; TEMP 36.6–36.9; O2SAT 94–100; BMI 30.7
--- NOTE | 2019-04-11 05:55 | EKG12_ITS ---
Test Reason : AM EKG Blood Pressure : / mmHG Vent. Rate : 059 BPM Atrial Rate : 059 BPM P-R Int : 152 ms QRS Dur : 078 ms QT Int : 446 ms P-R-T Axes : 043 044 090 degrees QTc Int : 441 ms Sinus bradycardia Nonspecific T wave abnormality Abnormal ECG When compared with ECG of 09-APR-2019 19:15, MANUAL COMPARISON REQUIRED, DATA IS UNCONFIRMED Confirmed by CINDY PIMENTEL ([id number]), restaurant expeditor ONUR COMBS ([id number]) on 04/15/2019 11:57:23 AM Referred By: AMBAR Confirmed By:CINDY PIMENTEL
[2019-04-11] MEDS: 0.9% Saline Lock 10 ML Syringe IV ×2 (06:28→10:26)
[2019-04-11] MEDS: LORazepam 0.5 MG Tablet PO (06:28)
[2019-04-11] MEDS: HYDROcodone Bitartrate/Apap 5/325 Tablet PO ×3 (06:28→21:53)
[2019-04-11] MEDS: Losartan Potassium 100 MG Tablet PO (06:29)
[2019-04-11] MEDS: Aspirin E.C. 81 MG Tablet PO (06:29)
[2019-04-11] MEDS: Gabapentin 300 MG Capsule PO ×3 (06:29→21:53)
[2019-04-11] MEDS: Metoprolol(XL)Succ 50 MG Tablet PO (06:30)
[2019-04-11] MEDS: amLODIPine 10 MG Tablet PO (06:30)
[2019-04-11] MEDS: Clopidogrel Bisulfate 75 MG Tablet PO (06:30)
[2019-04-11] MEDS: 0.9% Normal Saline 1,000 ML 15 ML IV (06:34)
--- NOTE | 2019-04-11 07:56 | NURSING ---
CALLED REPORT TO [facility] IN [employer]. NO QUESTIONS.
--- NOTE | 2019-04-11 09:02 | PN.CARD_ITS ---
Subjectve: Patient seen and evaluated. Underwent cardiac catheterization today. Objective: Vital Signs Temp Pulse Resp BP Pulse Ox 98.3 F 56 L 18 155/65 H 95 04/11/19 06:20 04/11/19 07:01 04/11/19 06:20 04/11/19 06:20 04/11/19 06:20 Oxygen Delivery Method Room Air Weight: 179 lb 3.2 oz Body Mass Index (BMI) 30.7 Intake and Output for Last 24 Hours 04/09/19 04/10/19 04/11/19 23:59 23:59 23:59 Intake Total 220 / 220 480 / 480 0.5 / 0.5 Balance 220 / 220 480 / 480 0.5 / 0.5 General: Awake, Alert, Oriented x 3 HEENT: PERRL, EOMI, Sclera Non Icteric Neck: Supple, Good ROM, No Lymph Node Enlargement Lungs: Clear to auscultation Cardiovascular: Regular Rhythm, Normal S1, Normal S2, No Murmurs, No Rubs, No Gallops Rhythm: EKG: ECHO: Stress Test: Cardiac Cath: PCI: CT Surgery: Holter monitor: EPS: PPM: CXR: Chest CT Scan: Medical Necessity - Tobacco Use Smoking Status: Former smoker Tobacco Use: Cigarettes Assessment/Plan 1. Chest pain with abnormal stress test * Patient presents with chest discomfort with some features which are typical for angina and an abnormal stress test. She does have coronary artery risk factors as well as bypass surgery which at 13 years old. * Cardiac catheterization demonstrated the following: Left main coronary artery noted to be normal. Left anterior descending artery with high-grade proximal stenosis. Dominant circumflex artery with long 80% stenotic lesion. Nondominant right coronary artery with no stenosis. Left internal mammary artery to left anterior descending artery which is patent. Saphenous vein graft to obtuse marginal branch which is patent with moderate disease. Based on the above angiographic findings the patient would be considered for angioplasty of the [place] circumflex artery. This appears to tighten with the territory of the ischemia noted on the stress test. 2. Hypertension * Her blood pressure appears to be better controlled at this particular time. My recommendation would be for us to add a beta-kedar to her regimen * Discontinue the doxazosin * amlodipine 5 mg a day * Continue losartan * Her echocardiogram demonstrates preserved ejection fraction with stage II diastolic dysfunction 3. Status post coronary artery bypass surgery * The patient had a left internal mammary artery to the left anterior descending artery, and a sequential saphenous vein graft to the left circumflex and left posterior descending artery. * 4. Risk factor modification * And will continue with aggressive risk factor modification * Continue statin use. * * Thank you for allowing me to participate in the care of your patient. Please don't hesitate to call if any issues arise
--- NOTE | 2019-04-11 09:03 | CL.D_ITS ---
Patient Name: SOFIA KULKARNI Study Date: 04/11/2019 Performing: Dez Smith MD Ht: 64.17 inches 163 cm : 1945 Wt: 178.57 lbs 81 kg Age: 74 Gender: female BSA: 1.87 PROCEDURE(S) PERFORMED [id number]/COR/LV/CABG CLINICAL PROFILE AND INDICATIONS Indications: Worsening Angina Heart Failure: None Stress/Imaging Date: 04/09/2019Stress Test with SPECT MPI: Positive Intermediate Risk CAD Presentations: Unstable angina. CONCLUSIONS Coronary artery disease with severe disease noted of the dominant [place] left circumflex artery. Byp ass graft to the LAD and the obtuse marginal branch are patent. RECOMMENDATIONS Referred for immediate PCI DESCRIPTION OF PROCEDURE The patient arrived to the procedure lab. The risks and benefits of the procedure as well as a full d escription of our services here and current unavailability of surgical backup were fully explained to the patient and/or their significant other prior to the catheterization. The Timeout was completed, verifying the correct patient and procedure. The patient's procedural site was prepped and draped in the usual fashion. Local anesthetic was given subcutaneously to right groin region with Lidocaine 2%. Using a modified Seldinger technique, arterial access was obtained via the right femoral artery, a 5 Fr sheath was inserted. Left Coronary Artery selective angiography was performed in multiple views u sing a 5 Fr. JL4 catheter. Right Coronary Artery selective angiography was then performed in multiple views using a 5 Fr. 3DRC (Moises) catheter. Saphenous Vein graft to the Circumflex selective angio graphy was performed in multiple views using a 5 Fr. 3DRC (Moises) catheter. Left internal mammary artery graft to the LAD selective angiography was performed in multiple views using a 5 Fr. IM catheter. Left Ventriculography was performed in ONOFRE projection using a 5 Fr. Pigtail cath eter. LV to AO pullback pressures were then recorded. CORONARY ANGIOGRAPHY DOMINANCE: Left Dominant LEFT HEART ASSESSMENT Left Ventricular Ejection Fraction: by LV Gram 55 % Inferior Mid Hypokinesis - Moderate Normal Left Ventricular systolic function LEFT MAIN: Angiographically normal LEFT ANTERIOR DESCENDING ARTERY: PROX LAD: 80 % Stenosis CIRCUMFLEX ARTERY: MID CIRC: Sequential and diffuse long 80% lesion RIGHT CORONARY ARTERY: Non-obstructive GRAFTS: CHIU graft to the Mid LAD is patent Saphenous Vein graft to the 1st OM is patent Saphenous Vein graft to the 1st OM Has a 50 to 60% lesion noted in the [place] obtuse marginal vessel COMPLICATIONS PROCEDURE MEDICATIONS Versed 1 mg IV Versed 1 mg IV Fentanyl 50 mcg IV Versed 1 mg IV Oxygen: 2 L/min via nasal cannula Nitro 200 mcg IC 04/11/2019 09:01:17 SUMMARY OF HEMODYNAMIC DATA Time AIR REST ECG 08:19:55 AO 142/70 (97) SA 08:38:02 LV 142/10, 22 08:50:26 LV 145/11, 21 08:50:32 LV 153/2, 25 08:51:35 LVp 155/4, 25 08:51:38 AOp 157/64 (103) 08:51:44 Signed By Dez Smith MD On 04/11/2019 9:02:16 AM Dez Smith MD
[2019-04-11 09:36] LABS: ACT Activated Clotting Time 175 sec (74-137)
--- NOTE | 2019-04-11 09:56 | CL.I_ITS ---
Patient Name: SOFIA KULKARNI Study Date: 04/11/2019 Performing: Mike Coto MD Ht: 64.17 inches 163 cm : 1945 Wt: 178.57 lbs 81 kg Age: 74 Gender: female BSA: 1.87 PROCEDURE(S) PERFORMED [id number] W OR WO PTCA, SINGLE CORONARY ARTERY CLINICAL PROFILE AND CO-MORBIDITIES Indications: Worsening Angina, ACS > 24 hrs, Worsening Angina, Stable Known CAD Heart Failure: None Stress/Imaging Date: 04/09/2019 Stress Test with SPECT MPI: Positive Intermediate Risk Angina Classification Anginal Classification w/in 2 Weeks: CCS III CAD Presentations: Unstable angina. Unstable angina. Comorbidities/Risk Factors: Hypertension Dyslipidemia Prior CABG CONCLUSIONS Successful PTCA/MAEGAN of MID LCX with a 2.5 x 38 Promus Synergy, post dilated with a 2.5 x 12 and 3.0 x 12 NC Balloon; 85%-->0%, no dissection. RECOMMENDATIONS Highly recommend quitting all tobacco products Follow up with primary shingle grader Risk factor modification ASA Indefinitley Plavix for at least 12 months Routine post interventional care Refer for Outpatient Cardiac Rehab Manual sheath removal per protocol Follow up with Dr. Smith Successful Mynx Control closure of RFA. DESCRIPTION OF PROCEDURE The patient arrived to the procedure lab. The risks and benefits of the procedure as well as a full d escription of our services here and current unavailability of surgical backup were fully explained to the patient and/or their significant other prior to the catheterization. The Timeout was completed, verifying the correct patient and procedure. The patient's procedural site was prepped and draped in the usual fashion. Local anesthetic was given subcutaneously to right groin region with Lidocaine 2% Using a modified Seldinger technique,arterial access was obtained via the right femoral artery, a 5Fr sheath was inserted. Left Coronary Artery selective angiography was performed in multiple views usin g a 5 Fr. JL4 catheter. Right Coronary Artery selective angiography was then performed in multiple vi ews using a 5 Fr. 3DRC (Moises) catheter. Saphenous Vein graft to the Circumflex selective angiogra phy was performed in multiple views using a 5 Fr. 3DRC (Moises) catheter. Left internal mammary artery graft to the LAD selective angiography was performed in multiple views using a 5 Fr. I M catheter. Left Ventriculography was performed in ONOFRE projection using a 5 Fr. Pigtail catheter. LV to AO pullback pressures were then recorded.The images were reviewed and options discussed. A decisio n was then made to proceed with an Intervention, IVUS or other adjunct procedure. Arterial sheath was exchanged for a 6 Fr Sheath. EBU 3.75 Guide catheter was inserted and engaged into the LCA. BMW Guide wire was advanced to the Circumflex. 2.00X12 EMERGE Balloon catheter was ins erted. Balloon catheter was advanced across lesion in the circumflex, mid. PTCA balloon inflated at 6 atms for 12 secs. PTCA balloon inflated at 6 atms for 10 secs. PTCA balloon inflated at 6 atms for 8 secs. PTCA balloon inflated at 8 atms for 12 secs. PTCA balloon inflated at 8 atms for 8 secs. 2.50X 38 SYNERGY Drug Eluting stent was inserted. Drug Eluting stent was advanced across the lesion in the circumflex, mid. 2.50X12 NC EMERGE Balloon catheter was inserted post stent. 3.00X12 NC EMERGE Balloo n catheter was inserted post stent. Angiogram performed post balloon dilatation. 3.00X12 NC EMERGE Ba lloon catheter was inserted post stent. The arterial sheath was pulled and a Mynx closure device wa s deployed for hemostasis INTERVENTION INFORMATION LESION SITE: Circumflex (Mid) Lesion Complexity: High/C, lesion at bifurcation: No, thrombus present: No, lesion length: 38 mm, cul prit lesion: Yes Pre Stenosis: 85 % Pre intervention AZUL flow: 3 PROCEDURE: Drug Eluting Stent with pre and post dilatation Post Stenosis: 0 % Post intervention AZUL flow: 3 Lesion Devices: Abdul .014 BMW [place] Straight 190cm Medtronic 6 Fr EBU3.75 100cm Guide Catheter Mele Sci EMERGE MR 2.00x12 BALLOON Mele Sci Synergy MR MAEGAN 2.50x38 Mele Sci NC EMERGE MR 2.50x12 BALLOON Mele Sci NC EMERGE MR 3.00x12 BALLOON COMPLICATIONS No Complications PROCEDURE MEDICATIONS Versed 1 mg IV Versed 1 mg IV Fentanyl 50 mcg IV Versed 1 mg IV Fentanyl 25 mcg IV Fentanyl 25 mcg IV Oxygen: 2 L/min via nasal cannula Atropine 1mg/10ml 0.25 amp @ 04/11/2019 09:15:38 Heparin 6000 unit(s) IV 04/11/2019 09:00:33 Nitro 200 mcg IC 04/11/2019 09:01:17 Nitro 200 mcg IC 04/11/2019 09:01:17 Nitro 200 mcg IC 04/11/2019 09:06:51 IV Bolus: .9 NaCl 600 ml total 04/11/2019 09:31:11 SUMMARY OF HEMODYNAMIC DATA Time AIR REST ECG 08:19:55 AO 142/70 (97) SA 08:38:02 LV 142/10, 22 08:50:26 LV 145/11, 21 08:50:32 LV 153/2, 25 08:51:35 LVp 155/4, 25 08:51:38 AOp 157/64 (103) 08:51:44 Signed By Mike Coto MD On 04/11/2019 09:55:30 Mike Coto MD
--- NOTE | 2019-04-11 09:58 | EKG12_ITS ---
Test Reason : POST PCI Blood Pressure : / mmHG Vent. Rate : 053 BPM Atrial Rate : 053 BPM P-R Int : 158 ms QRS Dur : 078 ms QT Int : 460 ms P-R-T Axes : 040 007 086 degrees QTc Int : 431 ms Sinus bradycardia Nonspecific ST and T wave abnormality Abnormal ECG When compared with ECG of 11-APR-2019 05:25, MANUAL COMPARISON REQUIRED, DATA IS UNCONFIRMED Confirmed by SCOTT SEXTON, RUKHSANA ([id number]), editor managing newspaper RANDY LIMON ([id number]) on 04/19/2019 3:04:15 PM Referred By: MARGARITO Confirmed By:RUKHSANA CHAVEZ MD
[2019-04-11] MEDS: Morphine 2 MG/ML Syringe IV (10:24)
[2019-04-11] MEDS: 0.9% Normal Saline 1,000 ML 150 ML IV (10:24)
--- NOTE | 2019-04-11 11:17 | CRPHASE1_ITS ---
Patient Communication Former Patient:: Phase II PHII Cardiac Rehab Discussed with Patient:: Yes Guide to Cardiac Rehab Given to Patient:: Yes Cardiac Rehab Facility Choice List Given to Patient:: Yes - [facility] Choice Program [facility] CR PHII:: Communication Given to CR, Refer to [facility] Catalytic Case Operator:: Mike Coto PCP:: Stacie Rivers Phase II Cardiac Rehab:: Yes Sessions:: 36 sessions - 3 days/wk, 12 weeks Phase I Charge:: Level I - Education Risk Factors/Lifestyle Smoking Status: Former smoker Hx Hypertension: Yes Hx Dyslipidemia: Yes Hx Obesity: Yes Height: 5 ft 4 in Weight:: 179 lb BMI: 30.7 Post-Menopausal: Yes Family History: Family History (Last Reviewed 04/08/19 @ 15:15 by Starr Sanchez DO) Grandmother Hypertension Father CVA (cerebral vascular accident) Heart disease Mother Hypertension Cancer Brother Cancer Sister Hypertension Family History: Cancer, Heart Disease, Hypertension, Stroke Past Cardiac Illness: Coronary Artery Disease, Coronary Artery Bypass Graft Laboratory Values: Cardiac Rehab Phase I Labs Triglycerides 91 mg/dL (-199) 04/09/19 05:11 Cholesterol 219 mg/dL (200) H 04/09/19 05:11 LDL Cholesterol 158 mg/dL (0-130) H 04/09/19 05:11 HDL Cholesterol 43 mg/dL (40-) 04/09/19 05:11 Phase I Education Given On:: [place], Nutrition, Antiplatelet medication, CHF Issues Affecting Care:: None Knowledge of Condition:: Yes Learning Preferences: Verbal, Written, Audio/Visual, Demonstration Medical/Surgical History Angina:: Yes Hypertension:: Yes Dyslipidemia:: Yes Arthritis:: Yes Other Medical/Surgical Issues:: chronic low back pain, fibromyalgia, leg cramps, neuropathy, plantar fasciitis, stomach ulcer. S/P bladder sling, laminectomy and discectomy, craniotomy, cervical spine fusion, hysterectomy, cholecyste ctomy, CABG x 3 CABG: Yes Orthopedic:: Yes - see above Cardiac Rehabilitation Info Cardiac Rehabilitation Program Information: Cardiac Rehabilitation is important for patients like you who are recovering from a heart problem. Cardiac rehabilitation programs are recognized as integral to the continued care of the patient with coronary heart disease. The cardiac rehabilitation program is designed to optimize a patient's physical, psychological, and social functioning. Health critical care registered nurse work in cardiac rehabilitation programs and assist you with getting the treatments you need to get stronger and healthier - like exercise, healthy eating habits, and medications. Cardiac rehabilitation has been show to help people with heart problems live longer and have better life enjoyment than people who do not go to cardiac rehabilitation. Please contact the Cardiac Rehabilitation Program at [facility] at in two weeks if you have not heard from them.
[2019-04-11] MEDS: predniSONE 20 MG Tablet PO ×2 (11:26→18:18)
[2019-04-11] MEDS: Psyllium 1 PACKET PO (11:27)
--- NOTE | 2019-04-11 11:27 | CRPH1.INSTRU ---
General Education CAD and cardiac anatomy and function:: Patient communicates acknowledgment, Needs reinforcement Explanation of diagnoses and procedures:: Patient communicates acknowledgment, Needs reinforcement Sign/Symptoms of KS:: Patient communicates acknowledgment, Needs reinforcement Antiplatelet therapy: Patient communicates acknowledgment, Needs reinforcement Proper use of NTG-SL: Patient communicates acknowledgment, Needs reinforcement Emergency procedures and activation of EMS: Patient communicates acknowledgment, Needs reinforcement Compliance of all prescribed medications: Patient communicates acknowledgment, Needs reinforcement Smoking Patient Nicotine/Smoking Risk Factors Are:: Non-smoker Recommendations Include:: Previous smoker; encourage continued cessation Nicotine/Smoking Response Code:: Patient communicates acknowledgment, Family communicates acknowledgment Dyslipidemia Patient Dyslipidemia Risk Factors Are:: Total Cholesterol, Triglycerides, HDL, LDL Recommendations Include:: Lipid profile provided, Reviewed NCEP/ATP guidelines, Therapeutic Lifestyle Change dietary guidelines Dyslipidemia Response Code:: Patient communicates acknowledgment, Needs reinforcement Overweight/Obesity Patient Overweight/Obesity Risk Factors Are:: Obesity - > or = 30 Recommendations Include:: Weight loss of 5-10%, Reduced calorie diet, Exercise 5-7 times/week Overweight/Obesity:: Patient communicates acknowledgment, Needs reinforcement Hypertension Recommendations Include:: Maintain BP <130/85, DASH dietary guidelines, Decrease/maintain normal body weight, Moderation of ETOH Hypertension:: Patient communicates acknowledgment, Needs reinforcement Heart Disease Patient Heart Disease Risk Factors Are:: Family history of heart disease < 65 years old, Previous cardiac event Recommendations Include:: Educated family members of their risk, Educated family members of importance of prevention of heart disease Heart Disease Response Code:: Patient communicates acknowledgment, Needs reinforcement Diabetes Patient Diabetes Risk Factors Are:: No documented hx of diabetes Diabetes:: Not instructed Metabolic Syndrome Patient Metabolic Syndrome Risk Factors Are [3 of 5]:: Waist circumference > 35 [female] or 40 [male], Hypertension, Low HDL <40 [male] or < 50 [female] Recommendations Include:: Reinforce compliance to risk factor modifications, Encouraged follow-up with Primary Care Physician Metabolic Syndrome Response Code:: Patient communicates acknowledgment, Needs reinforcement Sedentary Patient Sedentary Risk Factors Are:: Lack of regular exercise Recommendations Include:: Aerobic exercise 5-7 times/week for 20-30 minutes continuously, Benefits of regular exercise, Discussed home walking program, Monitored Outpatient Cardiac Rehab Sedentary Response Code:: Patient communicates acknowledgment, Needs reinforcement Stress Recommendations Include:: Identification of stressors, and assessment of coping skills, Stress management techniques Stress Response Code:: Patient communicates acknowledgment, Needs reinforcement
--- NOTE | 2019-04-11 14:07 | PN_ITS ---
<Sarita Stringer - Last Filed: 04/11/19 14:35> Patient Problems: Active and Suspected Problems (Last Reviewed 04/08/19 @ 17:43 by Starr Sanchez DO) History of coronary artery disease (Acute) History of hypertension (Acute) Unstable angina (Acute) Neuropathy (Acute) Subjective: Patient seen and examined. Underwent cardiac catheterization this morning with successful PTCA/MAEGAN of mid LCx. Patient denies further chest pain or shortness of breath. - Physical Exam Vitals/I&O's: Vital Signs Temp Pulse Resp BP Pulse Ox 98.2 F 51 L 15 110/41 L 94 04/11/19 12:00 04/11/19 13:00 04/11/19 13:00 04/11/19 13:00 04/11/19 13:00 Oxygen Flow Rate (L/min) 2 Oxygen Delivery Method Room Air Weight: 179 lb Body Mass Index (BMI) 30.7 Intake and Output for Last 24 Hours 04/09/19 04/10/19 04/11/19 23:59 23:59 23:59 Intake Total 220 / 220 480 / 480 528.0 / 528.0 Balance 220 / 220 480 / 480 528.0 / 528.0 General: Alert, Oriented x3, Cooperative HEENT: Atraumatic, PERRLA, EOMI, Normocephalic Neck: Supple, No JVD, Negative Carotid Bruits Lungs: Clear to auscultation, Normal air movement Cardiovascular: Regular rate, Regular Rhythm, Normal S1, Normal S2, Murmur Abdomen: Bowel Sounds Present, Soft, Non Tender, Non-Distended Extremities: No clubbing, No cyanosis, No edema, Capillary Refill Less than 3 Seconds Skin: No rashes, No breakdown Musculoskeletal: No Tenderness to Palpation of Joints or Extremities Neurological: Cranial nerves II-XII grossly intact, Neuro grossly intact Psych/Mental Status: Normal Affect, Appropriate Laboratory Results 04/11/19 09:26: Activated Clotting Time 175 H Current Medications Hydrocodone Bitart/Acetaminophen ([place] 5mg-325mg) 1 tablet PO Q4H PRN PRN PRN Reason: pain 3-7 Last Admin: 04/11/19 06:28 Dose: 1 tablet Documented by: Al Hydroxide/Mg Hydroxide (Mylanta Ii) 30 ml PO Q6H PRN PRN PRN Reason: Gastric Burning Amlodipine Besylate (Norvasc) 10 mg PO DAILY [facility] Last Admin: 04/11/19 06:30 Dose: 10 mg Documented by: Aspirin (Ecotrin) 81 mg PO DAILY@0800 [facility] Last Admin: 04/11/19 06:29 Dose: 81 mg Documented by: Atorvastatin Calcium (Lipitor) 40 mg PO QHS [facility] Last Admin: 04/10/19 22:44 Dose: 40 mg Documented by: Atropine Sulfate () 0.5 mg IV UD PRN PRN Reason: HR <50 bpm Citalopram Hydrobromide (Celexa) 20 mg PO QHS [facility] Last Admin: 04/10/19 22:43 Dose: 20 mg Documented by: Clopidogrel Bisulfate (Plavix) 75 mg PO DAILY [facility] Last Admin: 04/11/19 06:30 Dose: 75 mg Documented by: Gabapentin (Neurontin) 300 mg PO TID [facility] Last Admin: 04/11/19 06:29 Dose: 300 mg Documented by: Heparin Sodium (Beef Lung) (Heparin 500 Unit/5 Ml (100/Ml)) 500 unit IV UD PRN PRN Reason: HEPARIN FLUSH Hydralazine HCl (Apresoline Iv) 10 mg IV Q4H PRN PRN PRN Reason: sys>150 AVITIA>85 Last Admin: 04/09/19 18:39 Dose: 10 mg Documented by: Sodium Chloride () 1,000 mls @ 0 mls/hr IV .Q0M [facility] Last Infusion: 04/11/19 07:56 Dose: 15 mls/hr Documented by: Sodium Chloride () 1,000 mls @ 150 mls/hr IV .Q6H40M [facility] Stop: 04/11/19 16:37 Last Infusion: 04/11/19 11:55 Dose: 150 mls/hr Documented by: Labetalol HCl (Trandate) 5 mg IV X1 PRN PRN Reason: SBP > 160 when pulling sheath Lorazepam (Ativan) 0.5 mg PO Q4H PRN PRN PRN Reason: Anxiety w/ impending cath Last Admin: 04/11/19 06:28 Dose: 0.5 mg Documented by: Losartan Potassium (Cozaar) 100 mg PO DAILY [facility] Last Admin: 04/11/19 06:29 Dose: 100 mg Documented by: Magnesium Hydroxide (Milk Of Magnesia) 30 ml PO DAILY PRN PRN PRN Reason: Constipation Melatonin (Melatonin) 3 mg PO QHS PRN PRN PRN Reason: INSOMNIA Last Admin: 04/10/19 22:47 Dose: 3 mg Documented by: Methocarbamol (Robaxin) 500 mg PO TID PRN PRN PRN Reason: MUSCLE RELAXER Metoclopramide HCl (Reglan) 5 mg IV Q6H PRN PRN PRN Reason: NAUSEA/VOMITING Metoprolol Succinate (Toprol Xl (Beta Hermelindo)) 50 mg PO DAILY [facility] Last Admin: 04/11/19 06:30 Dose: 50 mg Documented by: Morphine Sulfate () 2 mg IV Q3H PRN PRN PRN Reason: Pain Score 8-10/10 Last Admin: 04/11/19 10:24 Dose: 2 mg Documented by: Nitroglycerin (Nitrostat) 0.4 mg SUBLINGUAL Q5M PRN PRN Reason: CARDIAC/CHEST PAIN Ondansetron HCl (Zofran) 4 mg IV Q8H PRN PRN PRN Reason: NAUSEA/VOMITING Prednisone () 20 mg PO BIDCM [facility]; Taper Stop: 04/20/19 19:59 Last Admin: 04/11/19 11:26 Dose: 20 mg Documented by: Psyllium Hydrophilic Mucilloid (Metamucil) 1 packet PO DAILY [facility] Last Admin: 04/11/19 11:27 Dose: 1 packet Documented by: Senna/Docusate Sodium (Senokot-S, [place]-Colace) 1 tablet PO DAILY PRN PRN PRN Reason: CONSTIPATION Last Admin: 04/09/19 22:20 Dose: 1 tablet Documented by: Sodium Chloride () 10 - 40 ml IV UD PRN PRN Reason: SALINE FLUSH Last Admin: 04/11/19 10:26 Dose: 10 ml Documented by: Sodium Chloride () 500 ml IV BOLUS PRN PRN Reason: VASO-VAGAL PROTOCOL Medical Necessity - Tobacco Use Smoking Status: Former smoker Tobacco Use: Cigarettes Assessment/Plan All Active Problems (Last Reviewed 04/08/19 @ 17:43 by Starr Sanchez DO) History of coronary artery disease (Acute) History of hypertension (Acute) Unstable angina (Acute) Neuropathy (Acute) Brain tumor (benign) (Resolved) 1. Chest pain, abnormal stress test-EKG with nonspecific ST changes. Troponin negative. Patient underwent nuclear stress test which demonstrated basal inferior ischemia. Gated ejection fraction 71%. Echocardiogram demonstrated an EF of 65%, stage II diastolic dysfunction, mild mitral valve insufficiency, mild tricuspid valve insufficiency. Cardiology following. Patient underwent heart cath this morning with successful PTCA/MAEGAN of mid LCx. Continue aspirin, statin, Plavix, beta-hermelindo. 2. CAD with history of CABG x3 in 2006-continue medical management as noted above. 3. Hypertension-Continue home losartan regimen. Amlodipine 10 mg daily and metoprolol 50 mg daily added. 4. Hyperlipidemia-initiated on statin. 5. History of benign brain tumor status post excision/history of skin cancer (not melanoma) 6. GERD/history of peptic ulcer disease-not on regimen. 7. Arthritis/fibromyalgia/bilateral lower extremity neuropathy-continue gabapentin, PRN pain regimen. DVT prophylaxis- Lovenox sc This patient was seen by HENRIK Hernandez under the supervision of Dr. Stuart. <Aliya Stuart - Last Filed: 04/11/19 17:06> - Physical Exam Vitals/I&O's: Vital Signs Temp Pulse Resp BP Pulse Ox 98.3 F 64 18 125/57 H 96 04/11/19 16:00 04/11/19 16:00 04/11/19 16:00 04/11/19 16:00 04/11/19 16:00 Oxygen Flow Rate (L/min) 2 Oxygen Delivery Method Room Air Weight: 81.193 kg Body Mass Index (BMI) 30.7 Intake and Output for Last 24 Hours 04/09/19 04/10/19 04/11/19 23:59 23:59 23:59 Intake Total 220 / 220 480 / 480 528.0 / 528.0 Balance 220 / 220 480 / 480 528.0 / 528.0 Laboratory Results 04/11/19 09:26: Activated Clotting Time 175 H Current Medications Hydrocodone Bitart/Acetaminophen ([place] 5mg-325mg) 1 tablet PO Q4H PRN PRN PRN Reason: pain 3-7 Last Admin: 04/11/19 16:19 Dose: 1 tablet Documented by: Al Hydroxide/Mg Hydroxide (Mylanta Ii) 30 ml PO Q6H PRN PRN PRN Reason: Gastric Burning Amlodipine Besylate (Norvasc) 10 mg PO DAILY [facility] Last Admin: 04/11/19 06:30 Dose: 10 mg Documented by: Aspirin (Ecotrin) 81 mg PO DAILY@0800 [facility] Last Admin: 04/11/19 06:29 Dose: 81 mg Documented by: Atorvastatin Calcium (Lipitor) 40 mg PO QHS [facility] Last Admin: 04/10/19 22:44 Dose: 40 mg Documented by: Atropine Sulfate () 0.5 mg IV UD PRN PRN Reason: HR <50 bpm Citalopram Hydrobromide (Celexa) 20 mg PO QHS [facility] Last Admin: 04/10/19 22:43 Dose: 20 mg Documented by: Clopidogrel Bisulfate (Plavix) 75 mg PO DAILY [facility] Last Admin: 04/11/19 06:30 Dose: 75 mg Documented by: Gabapentin (Neurontin) 300 mg PO TID [facility] Last Admin: 04/11/19 14:33 Dose: 300 mg Documented by: Heparin Sodium (Beef Lung) (Heparin 500 Unit/5 Ml (100/Ml)) 500 unit IV UD PRN PRN Reason: HEPARIN FLUSH Hydralazine HCl (Apresoline Iv) 10 mg IV Q4H PRN PRN PRN Reason: sys>150 AVITIA>85 Last Admin: 04/09/19 18:39 Dose: 10 mg Documented by: Sodium Chloride () 1,000 mls @ 0 mls/hr IV .Q0M [facility] Last Infusion: 04/11/19 07:56 Dose: 15 mls/hr Documented by: Labetalol HCl (Trandate) 5 mg IV X1 PRN PRN Reason: SBP > 160 when pulling sheath Lorazepam (Ativan) 0.5 mg PO Q4H PRN PRN PRN Reason: Anxiety w/ impending cath Last Admin: 04/11/19 06:28 Dose: 0.5 mg Documented by: Losartan Potassium (Cozaar) 100 mg PO DAILY [facility] Last Admin: 04/11/19 06:29 Dose: 100 mg Documented by: Magnesium Hydroxide (Milk Of Magnesia) 30 ml PO DAILY PRN PRN PRN Reason: Constipation Melatonin (Melatonin) 3 mg PO QHS PRN PRN PRN Reason: INSOMNIA Last Admin: 04/10/19 22:47 Dose: 3 mg Documented by: Methocarbamol (Robaxin) 500 mg PO TID PRN PRN PRN Reason: MUSCLE RELAXER Metoclopramide HCl (Reglan) 5 mg IV Q6H PRN PRN PRN Reason: NAUSEA/VOMITING Metoprolol Succinate (Toprol Xl (Beta Hermelindo)) 50 mg PO DAILY [facility] Last Admin: 04/11/19 06:30 Dose: 50 mg Documented by: Morphine Sulfate () 2 mg IV Q3H PRN PRN PRN Reason: Pain Score 8-10/10 Last Admin: 04/11/19 10:24 Dose: 2 mg Documented by: Nitroglycerin (Nitrostat) 0.4 mg SUBLINGUAL Q5M PRN PRN Reason: CARDIAC/CHEST PAIN Ondansetron HCl (Zofran) 4 mg IV Q8H PRN PRN PRN Reason: NAUSEA/VOMITING Prednisone () 20 mg PO BIDCM [facility]; Taper Stop: 04/20/19 19:59 Last Admin: 04/11/19 11:26 Dose: 20 mg Documented by: Psyllium Hydrophilic Mucilloid (Metamucil) 1 packet PO DAILY [facility] Last Admin: 04/11/19 11:27 Dose: 1 packet Documented by: Senna/Docusate Sodium (Senokot-S, [place]-Colace) 1 tablet PO DAILY PRN PRN PRN Reason: CONSTIPATION Last Admin: 04/09/19 22:20 Dose: 1 tablet Documented by: Sodium Chloride () 10 - 40 ml IV UD PRN PRN Reason: SALINE FLUSH Last Admin: 04/11/19 10:26 Dose: 10 ml Documented by: Sodium Chloride () 500 ml IV BOLUS PRN PRN Reason: VASO-VAGAL PROTOCOL Assessment/Plan This patient was seen in conjunction with Sarita Stringer HYDROSTATIC TUBING TESTER. I have independently interviewed and examined the patient and reviewed pertinent historical, laboratory, and other data. Please refer to her note for patient's presentation, findings, and recommendations. Patient was seen and examined. Status post cardiac cath with stent placed in the left circumflex No more chest pain or dizziness or palpitations. Physical Exam: Gen: Appears anxious, not pale, not jaundiced, alert oriented x3 CVS:HS I +II, regular, no murmurs RESP: Clinically clear to auscultation GI: BS present and normal, nontender, no palpable organs EXT:No edema Labs reviewed: ASSESSMENT: 1. CAD status post CABG, status post stents in the left circumflex 2. Hypertension 3. Hyperlipidemia 4. GERD Meds reviewed Plan: Continue on current medications Code Visit Inpatient E&M: 53362 Subs Hosp L2
--- NOTE | 2019-04-11 14:34 | CHAPLAIN ---
Type of Pastoral Visit _x__ Initial Visit ___ Follow-up Visit ___ On-call Visit ___ General Patient Visit ___ Spiritual Assessment ___ Family Conference ___ Bereavement ___ Rapid Response ___ Code Blue ___ Other (describe below) Pastoral Care Referral From _x__ Patient ___ Family ___ Nurse ___ Physician ___ Rental Clerk [employer] Equipment ___ Milk Bottler ___ Other (describe below) Sacrament/Intervention ___ Active listening ___ Anointing ___ Orthodox ___ Bereavement ___ Communion ___ Bhumi exploration ___ ___ Life review ___ Prayer ___ Reconciliation ___ Sacrament of Sick _x__ Supportive presence ___ Wedding ___ Other (describe below) Pastoral Comments
[2019-04-11] MEDS: Ondansetron 4 MG/2 ML Vial IV (17:17)
[2019-04-11] MEDS: Citalopram 20 MG Tablet PO (21:53)
[2019-04-11] MEDS: Atorvastatin Calcium 40 MG Tablet PO (21:53)
[2019-04-12] VITALS (14 sets, daily range): BP systolic 118–171; BP diastolic 34–70; PULSE 51–64; RESP 16–20; TEMP 36.6–37; O2SAT 94–99
[2019-04-12 05:36] LABS: Hemoglobin 12.7 g/dL (12.0-15.0); Mean Corp Hgb Conc 32.6 g/dL (32-36); Mean Corpuscular Hgb 30.3 pg (27.0-32.0); Mean Corpuscular Volume 93.1 fL (81-99); Mean Platelet Vol. 9.9 fl (6.2-12.0); Platelet Count 230 K/mm3 (150-450); RBC Distribution Width CV 12.7 % (11.6-14.6); RBC Distribution Width SD 42.8 fl (35.1-43.9); Red Blood Count 4.19 M/mm3 (4.2-5.4); White Blood Count 11.1 K/mm3 (4.4-11.0)
[2019-04-12 06:14] LABS: ALB/GLOB Ratio 1.1 RATIO (0.9-2.4); AST(SGOT) 12 U/L (15-37); Alanine Aminotransfer ALT/SGPT 23 U/L (13-56); Albumin, Serum 3.3 g/dL (3.2-5.0); Alkaline Phosphatase 68 U/L (45-117); Anion Gap 7 (5-15); BUN 25 mg/dL (7-18); BUN/Creat Ratio 28.6 RATIO (10-20); Calcium,Total 8.6 mg/dL (8.5-10.1); Chloride 110 mmol/L (98-107); Creatinine, Serum 0.87 mg/dL (0.55-1.02); EST Glomerular Filtration Rate 68 mL/min (>60); Est Glom Filt Rate - Afr Amer 82 mL/min (>60); Estimated Creatinine Clearance 49.73 ml/min; Globulin 2.9 g/dL (2.2-4.2); Glucose 130 mg/dL (74-106); Potassium 4.5 mmol/L (3.5-5.1); Protein, Total 6.2 g/dL (6.4-8.2); Sodium Level 141 mmol/L (136-145)
[2019-04-12] MEDS: Gabapentin 300 MG Capsule PO (06:18)
[2019-04-12] MEDS: Aspirin E.C. 81 MG Tablet PO (07:58)
[2019-04-12] MEDS: predniSONE 20 MG Tablet PO (07:59)
[2019-04-12] MEDS: Losartan Potassium 100 MG Tablet PO (08:04)
[2019-04-12] MEDS: amLODIPine 10 MG Tablet PO (08:04)
[2019-04-12] MEDS: Metoprolol(XL)Succ 50 MG Tablet PO (08:05)
[2019-04-12] MEDS: Clopidogrel Bisulfate 75 MG Tablet PO (08:05)
--- NOTE | 2019-04-12 08:13 | PN.CARD_ITS ---
Subjectve: Patient seen and evaluated. Appears to be doing quite well this morning. No complaints no chest pain no headache and no groin complaints. Objective: Vital Signs Temp Pulse Resp BP Pulse Ox 97.9 F 64 17 171/70 H 98 04/12/19 08:00 04/12/19 08:05 04/12/19 08:00 04/12/19 08:05 04/12/19 08:00 Oxygen Flow Rate (L/min) 2 Oxygen Delivery Method Room Air Weight: 180 lb 12.465 oz Body Mass Index (BMI) 30.7 Intake and Output for Last 24 Hours 04/10/19 04/11/19 04/12/19 23:59 23:59 23:59 Intake Total 480 / 480 1800.5 / 2300.5 600 / 600 Output Total 400 / 400 Balance 480 / 480 1400.5 / 1900.5 600 / 600 General: Awake, Alert, Oriented x 3 HEENT: PERRL, EOMI, Sclera Non Icteric Neck: Supple, Good ROM, No Lymph Node Enlargement Lungs: Clear to auscultation Cardiovascular: Regular Rhythm, Normal S1, Normal S2, No Murmurs, No Rubs, No Gallops Vascular: No Carotid Bruits, Normal Femoral Pulses, Normal Radial Pulses, Normal Dorsalis Pedal Pulse, Normal Posterior Tibial Pulses Abdomen: Bowel Sounds Present, Soft, Non Tender, No HSM, No Organomegaly Extremities: No Cyanosis, No Clubbing, No edema Musculoskeletal: No Erythema Skin: No Rashes Lymphatic: No Lymph Node Enlargement Neurological: No Focal Motor or Sensory Deficit Psych/Mental Status: Appropriate 04/12/19 05:30: WBC 11.1 H, RBC 4.19 L, Hgb 12.7, Hct 39.0, MCV 93.1, MCH 30.3, MCHC 32.6, Plt Count 230, MPV 9.9 04/12/19 05:30: Sodium 141, Potassium 4.5, Chloride 110 H, Carbon Dioxide 24.0, Anion Gap 7, BUN 25 H, Creatinine 0.87, Est GFR (MDRD) Af Amer 82, Est GFR (MDRD) Non-Af 68, BUN/Creatinine Ratio 28.6 H, Glucose 130 H, Calcium 8.6, Total Bilirubin 0.30 Rhythm: EKG: ECHO: Stress Test: Cardiac Cath: PCI: CT Surgery: Holter monitor: EPS: PPM: CXR: Chest CT Scan: Medical Necessity - Tobacco Use Smoking Status: Former smoker Tobacco Use: Cigarettes Assessment/Plan 1. Chest pain with abnormal stress test * Patient presents with chest discomfort with some features which are typical for angina and an abnormal stress test. She does have coronary artery risk factors as well as bypass surgery which at 13 years old. * Cardiac catheterization demonstrated the following: Left main coronary artery noted to be normal. Left anterior descending artery with high-grade proximal stenosis. Dominant circumflex artery with long 80% stenotic lesion. Nondominant right coronary artery with no stenosis. Left internal mammary artery to left anterior descending artery which is patent. Saphenous vein graft to obtuse marginal branch which is patent with moderate disease. * The patient underwent angioplasty and stenting of the dominant mid left cir cumflex artery. This morning appears to be doing well with no EKG changes and no groin issues. 2. Hypertension * Her blood pressure appears to be better controlled at this particular time. My recommendation would be for us to add a beta-kedar to her regimen * Discontinue the doxazosin * amlodipine 5 mg a day * Continue losartan * Her echocardiogram demonstrates preserved ejection fraction with stage II diastolic dysfunction 3. Status post coronary artery bypass surgery * The patient had a left internal mammary artery to the left anterior descending artery, and a sequential saphenous vein graft to the left circumflex and left posterior descending artery. * 4. Risk factor modification * And will continue with aggressive risk factor modification * Continue statin use. * * * Patient will be discharged for outpatient follow-up on beta-kedar, aspirin, ARB, and statin. Will also be on clopidogrel. She will be in cardiac rehabilitation and I will see her in my office in 2 to 4 weeks. My office will call for an appointment. * Thank you for allowing me to participate in the care of your patient. Please don't hesitate to call if any issues arise
--- NOTE | 2019-04-12 08:24 | DCINST_ITS ---
- Discharge Diagnoses Current Active Problems: Current Active and Chronic Problems (Last Updated 04/11/19 @ 18:19 by Francine Gannon) Atherosclerosis of coronary artery of [place] 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) H/O coronary artery bypass surgery (Chronic 2006) CABG x 3 CHIU-LAD, Sequential SVG-OM1, OM2 2006 Essential (primary) hypertension (Chronic) Reason(s) for Visit for Discharge Instructions: Chest pain You will use the following diet at home:: Cardiac Your food should be the consistency of: Regular Your liquids should be the consistency of: Regular/Thin Discharge Activity: Return to Normal Activity Additional Instructions: Continue to take all your medications as prescribed. Follow a low salt, low fat diet. Follow-up with cardiology within 2 weeks. Follow up with your primary care doctor with 1-2 weeks. Follow with cardiac rehab as scheduled. Allergies/Adverse Reactions: Allergies isometheptene [From Midrin] Allergy (Verified 04/08/19 15:31) shaking Sulfa (Sulfonamide Antibiotics) Allergy (Verified 04/08/19 15:31) throat Swelling codeine Adverse Reaction (Verified 04/08/19 10:12) Nausea/Vom/Diarrhea dichloralphenazone [From Midrin] Adverse Reaction (Verified 04/08/19 15:35) shaking ibuprofen Adverse Reaction (Verified 04/08/19 15:35) stomachaches topiramate [From Topamax] Adverse Reaction (Verified 04/08/19 15:35) I felt crazy Medications to take at Discharge Citalopram [Celexa] 20 mg PO DAILY 02/18/16 Oxycodone HCl/Acetaminophen [Oxycodon-Acetaminophen 7.5-325] 1 tab PO 4X/DAY 01/14/18 methocarbamol 500 mg tablet 500 mg PO TID PRN PRN 09/27/18 Gabapentin [Neurontin] 300 mg PO TID 04/08/19 Losartan Potassium 100 mg PO DAILY 04/08/19 Prednisone See Taper PO DAILY 04/08/19 Amlodipine [Norvasc] 10 mg PO DAILY #30 tab 04/12/19 Aspirin E.C. [Ecotrin] 81 mg PO DAILY@0800 #30 tab 04/12/19 Atorvastatin Calcium [Lipitor] 40 mg PO QHS #30 tab 04/12/19 Clopidogrel Bisulfate [Plavix] 75 mg PO DAILY #30 tab 04/12/19 Metoprolol(XL)Succ [Toprol Xl (Beta Hermelindo)] 50 mg PO DAILY #30 tab 04/12/19 The following prescriptions were given: Aspirin E.C. [Ecotrin] 81 mg PO DAILY@0800 #30 tab Transmission Status: Pending to [facility]/pharmacy #[id number] Atorvastatin Calcium [Lipitor] 40 mg PO QHS #30 tab Transmission Status: Pending to [facility]/pharmacy #[id number] Amlodipine [Norvasc] 10 mg PO DAILY #30 tab Transmission Status: Pending to [facility]pharmacy #[id number] Clopidogrel Bisulfate [Plavix] 75 mg PO DAILY #30 tab Transmission Status: Pending to [facility]pharmacy #[id number] Metoprolol(XL)Succ [Toprol Xl (Beta Hermelindo)] 50 mg PO DAILY #30 tab Transmission Status: Pending to [facility]acy #[id number] Primary Care Physician: Stacie Rivers NP-C [Primary Care Provider] - Please follow up with your Primary Care Physician in: within 1-2 weeks Test Results: Test results from this visit will be discussed in further detail at your follow- up appointment, if applicable. Please Follow Up With: Dez Smith MD When: within 2 weeks Proposed Discharge Date: 04/12/19
--- NOTE | 2019-04-12 08:50 | DS.PCM_ITS ---
<Sarita Stringer - Last Filed: 04/12/19 08:58> Discharge Date and Diagnosis Date of Admission: 04/08/19 Date of Discharge: 04/12/19 - Primary Discharge Diagnosis 1. Unstable angina, abnormal stress test s/p PTCA/MAEGAN of mid LCx 2. CAD with history of CABG x3 in 2006 3. Hypertension 4. Hyperlipidemia 5. History of benign brain tumor status post excision/history of skin cancer (not melanoma) 6. GERD/history of peptic ulcer disease 7. Arthritis/fibromyalgia/bilateral lower extremity neuropathy - Secondary Discharge Diagnosis Chronic Problems (Last Updated 04/11/19 @ 18:19 by Francine Gannon) Atherosclerosis of coronary artery of [place] 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) H/O coronary artery bypass surgery (Chronic 2006) CABG x 3 CHIU-LAD, Sequential SVG-OM1, OM2 2006 Essential (primary) hypertension (Chronic) Hospital Course and Treatment Imaging Results: Diagnostic Data Chest X-Ray 04/08/19 10:49 IMPRESSION: Stable examination. No acute abnormality is seen. Electronically Signed: Tayo Bundy, at 11:16 EST , Service support , Dr. Smith- Cardiology Operations: None Procedures: 2-D Echocardiogram, Cardiac catheterization, Stress test Summary of Care Provided: The patient is a 74 year old F admitted 04/08/2019 due to back pain radiating to the chest. 1. Chest pain, abnormal stress test-EKG with nonspecific ST changes. Troponin negative. Patient underwent nuclear stress test which demonstrated basal inferior ischemia. Gated ejection fraction 71%. Echocardiogram demonstrated an EF of 65%, stage II diastolic dysfunction, mild mitral valve insufficiency, mild tricuspid valve insufficiency. Cardiology following. Patient underwent heart cath 04/11/19 with successful PTCA/MAEGAN of mid LCx. Continue aspirin, statin, Plavix, beta-hermelindo. Follow-up with cardiology in 2 weeks. 2. CAD with history of CABG x3 in 2006-continue medical management as noted above. 3. Hypertension-Continue home losartan regimen. Amlodipine 10 mg daily and metoprolol 50 mg daily added. 4. Hyperlipidemia-initiated on statin. 5. History of benign brain tumor status post excision/history of skin cancer (not melanoma) 6. GERD/history of peptic ulcer disease-not on regimen. 7. Arthritis/fibromyalgia/bilateral lower extremity neuropathy-continue gabapentin, PRN pain regimen. General: Alert, Oriented x3, Cooperative HEENT: Atraumatic, PERRLA, EOMI, Normocephalic Neck: Supple, No JVD, Negative Carotid Bruits Lungs: Clear to auscultation, Normal air movement Cardiovascular: Regular rate, Regular Rhythm, Normal S1, Normal S2, Murmur Abdomen: Bowel Sounds Present, Soft, Non Tender, Non-Distended Extremities: No clubbing, No cyanosis, No edema, Capillary Refill Less than 3 Seconds Skin: No rashes, No breakdown Musculoskeletal: No Tenderness to Palpation of Joints or Extremities Neurological: Cranial nerves II-XII grossly intact, Neuro grossly intact Psych/Mental Status: Normal Affect, Appropriate Patient seen and examined prior to discharge. Physical assessment as noted above. Patient is stable for discharge with follow up recommendations as noted above. This patient was seen by HENRIK Hernandez under the supervision of Dr. Stuart. - Physical Exam Vitals/I&O's: Vital Signs Temp Pulse Resp BP Pulse Ox 97.9 F 64 17 171/70 H 98 04/12/19 08:00 04/12/19 08:05 04/12/19 08:00 04/12/19 08:05 04/12/19 08:00 Oxygen Flow Rate (L/min) 2 Oxygen Delivery Method Room Air Weight: 180 lb 12.465 oz Body Mass Index (BMI) 30.7 Intake and Output for Last 24 Hours 04/10/19 04/11/19 04/12/19 23:59 23:59 23:59 Intake Total 480 / 480 1800.5 / 2300.5 600 / 600 Output Total 400 / 400 Balance 480 / 480 1400.5 / 1900.5 600 / 600 Laboratory Results 04/11/19 09:26: Activated Clotting Time 175 H 04/12/19 05:30: WBC 11.1 H, RBC 4.19 L, Hgb 12.7, Hct 39.0, MCV 93.1, MCH 30.3, MCHC 32.6, RDW Std Deviation 42.8, RDW Coeff of Fredo 12.7, Plt Count 230, MPV 9.9 04/12/19 05:30: Sodium 141, Potassium 4.5, Chloride 110 H, Carbon Dioxide 24.0, Anion Gap 7, BUN 25 H, Creatinine 0.87, Estim Creat Clear Calc 49.73, Est GFR (MDRD) Af Amer 82, Est GFR (MDRD) Non-Af 68, BUN/Creatinine Ratio 28.6 H, Glucose 130 H, Calcium 8.6, Total Bilirubin 0.30, AST 12 L, ALT 23, Alkaline Phosphatase 68, Total Protein 6.2 L, Albumin 3.3, Globulin 2.9, Albumin/Globulin Ratio 1.1 Current Medications Hydrocodone Bitart/Acetaminophen ([place] 5mg-325mg) 1 tablet PO Q4H PRN PRN PRN Reason: pain 3-7 Last Admin: 04/11/19 21:53 Dose: 1 tablet Documented by: Al Hydroxide/Mg Hydroxide (Mylanta Ii) 30 ml PO Q6H PRN PRN PRN Reason: Gastric Burning Amlodipine Besylate (Norvasc) 10 mg PO DAILY FOR[facility], [facility] Last Admin: 04/12/19 08:04 Dose: 10 mg Documented by: Aspirin (Ecotrin) 81 mg PO DAILY@0800 [facility], [facility] Last Admin: 04/12/19 07:58 Dose: 81 mg Documented by: Atorvastatin Calcium (Lipitor) 40 mg PO QHS [facility], [facility] Last Admin: 04/11/19 21:53 Dose: 40 mg Documented by: Atropine Sulfate () 0.5 mg IV UD PRN PRN Reason: HR <50 bpm Citalopram Hydrobromide (Celexa) 20 mg PO QHS [facility], [facility] Last Admin: 04/11/19 21:53 Dose: 20 mg Documented by: Clopidogrel Bisulfate (Plavix) 75 mg PO DAILY [facility] Last Admin: 04/12/19 08:05 Dose: 75 mg Documented by: Gabapentin (Neurontin) 300 mg PO TID [facility], [facility] Last Admin: 04/12/19 06:18 Dose: 300 mg Documented by: Heparin Sodium (Beef Lung) (Heparin 500 Unit/5 Ml (100/Ml)) 500 unit IV UD PRN PRN Reason: HEPARIN FLUSH Hydralazine HCl (Apresoline Iv) 10 mg IV Q4H PRN PRN PRN Reason: sys>150 AVITIA>85 Last Admin: 04/09/19 18:39 Dose: 10 mg Documented by: Sodium Chloride () 1,000 mls @ 0 mls/hr IV .Q0M [facility], [facility] Last Infusion: 04/11/19 07:56 Dose: 15 mls/hr Documented by: Labetalol HCl (Trandate) 5 mg IV X1 PRN PRN Reason: SBP > 160 when pulling sheath Lorazepam (Ativan) 0.5 mg PO Q4H PRN PRN PRN Reason: Anxiety w/ impending cath Last Admin: 04/11/19 06:28 Dose: 0.5 mg Documented by: Losartan Potassium (Cozaar) 100 mg PO DAILY [facility] Last Admin: 04/12/19 08:04 Dose: 100 mg Documented by: Magnesium Hydroxide (Milk Of Magnesia) 30 ml PO DAILY PRN PRN PRN Reason: Constipation Melatonin (Melatonin) 3 mg PO QHS PRN PRN PRN Reason: INSOMNIA Last Admin: 04/10/19 22:47 Dose: 3 mg Documented by: Methocarbamol (Robaxin) 500 mg PO TID PRN PRN PRN Reason: MUSCLE RELAXER Metoclopramide HCl (Reglan) 5 mg IV Q6H PRN PRN PRN Reason: NAUSEA/VOMITING Metoprolol Succinate (Toprol Xl (Beta Hermelindo)) 50 mg PO DAILY [facility] Last Admin: 04/12/19 08:05 Dose: 50 mg Documented by: Morphine Sulfate () 2 mg IV Q3H PRN PRN PRN Reason: Pain Score 8-10/10 Last Admin: 04/11/19 10:24 Dose: 2 mg Documented by: Nitroglycerin (Nitrostat) 0.4 mg SUBLINGUAL Q5M PRN PRN Reason: CARDIAC/CHEST PAIN Ondansetron HCl (Zofran) 4 mg IV Q8H PRN PRN PRN Reason: NAUSEA/VOMITING Last Admin: 04/11/19 17:17 Dose: 4 mg Documented by: Prednisone () [facility]; Taper Stop: 04/20/19 19:59 Last Admin: 04/12/19 07:59 Dose: 20 mg Documented by: Psyllium Hydrophilic Mucilloid (Metamucil) 1 packet PO DAILY [facility] Last Admin: 04/12/19 08:09 Dose: Not Given Documented by: Senna/Docusate Sodium (Senokot-S, [place]al[place]-Colace) 1 tablet PO DAILY PRN PRN PRN Reason: CONSTIPATION Last Admin: 04/09/19 22:20 Dose: 1 tablet Documented by: Sodium Chloride () 10 - 40 ml IV UD PRN PRN Reason: SALINE FLUSH Last Admin: 04/11/19 10:26 Dose: 10 ml Documented by: Sodium Chloride () 500 ml IV BOLUS PRN PRN Reason: VASO-VAGAL PROTOCOL Discharge Diet: Low fat/ Low Cholesterol Discharge Activity: Return to Normal Activity Home Medications: Medications to take at Discharge RX: Citalopram [Celexa] 20 mg PO DAILY 02/18/16 RX: Oxycodone HCl/Acetaminophen [Oxycodon-Acetaminophen 7.5-325] 1 tab PO 4X/DAY 01/14/18 methocarbamol 500 mg tablet 500 mg PO TID PRN PRN 09/27/18 RX: Gabapentin [Neurontin] 300 mg PO TID 04/08/19 RX: Losartan Potassium 100 mg PO DAILY 04/08/19 RX: Prednisone See Taper PO DAILY 04/08/19 RX: Amlodipine [Norvasc] 10 mg PO DAILY #30 tab 04/12/19 RX: Aspirin E.C. [Ecotrin] 81 mg PO DAILY@0800 #30 tab 04/12/19 RX: Atorvastatin Calcium [Lipitor] 40 mg PO QHS #30 tab 04/12/19 RX: Clopidogrel Bisulfate [Plavix] 75 mg PO DAILY #30 tab 04/12/19 RX: Metoprolol(XL)Succ [Toprol Xl (Beta Hermelindo)] 50 mg PO DAILY #30 tab 04/12/19 Following Prescrptions Were Given to Patient: RX: Aspirin E.C. [Ecotrin] 81 mg PO DAILY@0800 #30 tab Transmission Status: Received by [facility]/pharmacy #[id number] RX: Atorvastatin Calcium [Lipitor] 40 mg PO QHS #30 tab Transmission Status: Received by [facility]/pharmacy #[id number] RX: Amlodipine [Norvasc] 10 mg PO DAILY #30 tab Transmission Status: Received by [facility]/pharmacy #[id number] RX: Clopidogrel Bisulfate [Plavix] 75 mg PO DAILY #30 tab Transmission Status: Received by [facility]/pharmacy #[id number] RX: Metoprolol(XL)Succ [Toprol Xl (Beta Hermelindo)] 50 mg PO DAILY #30 tab Transmission Status: Received by [facility]/pharmacy #[id number] Primary Care Physician: Tita,Stacie, MODEL MAKER-C [Primary Care Provider] - Please follow up with your Primary Care Physician in: within 1-2 weeks Please Follow Up With: Dez Smith MD When: within 2 weeks Disposition: Home Minutes spent on discharge:: 35 Patient Condition:: Stable Medical Necessity - Tobacco Use Smoking Status: Former smoker Tobacco Use: Cigarettes Meaningful Use Info Meaningful Use Diagnoses (Choose all that apply): None applicable <[place] - Last Filed: 04/12/19 14:40> Discharge Date and Diagnosis - Secondary Discharge Diagnosis Chronic Problems (Last Updated 04/11/19 @ 18:19 by Francine Gannon) Atherosclerosis of coronary artery of [place] 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) H/O coronary artery bypass surgery (Chronic 2006) CABG x 3 CHIU-LAD, Sequential SVG-OM1, OM2 2006 Essential (primary) hypertension (Chronic) Hospital Course and Treatment Summary of Care Provided: This patient was seen in conjunction with Sarita Stringer NP. I have indepe ndently interviewed and examined the patient and reviewed pertinent historical, laboratory, and other data. Please refer to her note for patient's presentation, findings, and recommendations. The patient is a 74 year old F with past medical history of CABG, GERD who was admitted with chest pain as well as back pain. Patient's admitting EKG showed non-normal sinus rhythm with no other specific ST-T changes. A chest x-ray was unremarkable. Troponins were negative. She underwent nuclear stress test that showed a basilar inferior ischemia. Patient subsequently underwent cardiac cath after cardiology was consulted. Her cardiac cath showed severe disease in the dominant [place] left circumflex artery. Bypass graft to the LAD and obtuse marginal branch are patent. She underwent stent to the mid circumflex. She was monitored overnight in ICU with no acute events. Her blood pressure was controlled. On the day of discharge, patient was seen and examined. She denied any new complaint. No more chest pain. Physical Exam: Gen: Appears anxious, not pale, not jaundiced, alert oriented x3 CVS:HS I +II, regular, no murmurs RESP: Clinically clear to auscultation GI: BS present and normal, nontender, no palpable organs EXT:No edema - Physical Exam Vitals/I&O's: Vital Signs Temp Pulse Resp BP Pulse Ox 97.9 F 58 L 18 125/48 H 97 04/12/19 10:00 04/12/19 10:00 04/12/19 10:00 04/12/19 10:00 04/12/19 10:00 Oxygen Flow Rate (L/min) 2 Oxygen Delivery Method Room Air Weight: 82 kg Body Mass Index (BMI) 30.7 Intake and Output for Last 24 Hours 04/10/19 04/11/19 04/12/19 23:59 23:59 23:59 Intake Total 480 / 480 1800.5 / 2300.5 946 / 946 Output Total 400 / 400 Balance 480 / 480 1400.5 / 1900.5 946 / 946 Laboratory Results 04/12/19 05:30: WBC 11.1 H, RBC 4.19 L, Hgb 12.7, Hct 39.0, MCV 93.1, MCH 30.3, MCHC 32.6, RDW Std Deviation 42.8, RDW Coeff of Fredo 12.7, Plt Count 230, MPV 9.9 04/12/19 05:30: Sodium 141, Potassium 4.5, Chloride 110 H, Carbon Dioxide 24.0, Anion Gap 7, BUN 25 H, Creatinine 0.87, Estim Creat Clear Calc 49.73, Est GFR (MDRD) Af Amer 82, Est GFR (MDRD) Non-Af 68, BUN/Creatinine Ratio 28.6 H, Glucose 130 H, Calcium 8.6, Total Bilirubin 0.30, AST 12 L, ALT 23, Alkaline Phosphatase 68, Total Protein 6.2 L, Albumin 3.3, Globulin 2.9, Albumin/Globulin Ratio 1.1 Code Visit OBSV E&M: [id number] Observation care discharge
--- NOTE | 2019-04-12 10:00 | EKG12_ITS ---
Test Reason : AM Blood Pressure : / mmHG Vent. Rate : 056 BPM Atrial Rate : 056 BPM P-R Int : 166 ms QRS Dur : 080 ms QT Int : 446 ms P-R-T Axes : 000 033 083 degrees QTc Int : 430 ms Sinus bradycardia Otherwise normal ECG When compared with ECG of 11-APR-2019 10:02, MANUAL COMPARISON REQUIRED, DATA IS UNCONFIRMED Confirmed by CINDY PIMENTEL ([id number]), art editor ONUR COMBS ([id number]) on 04/24/2019 10:47:39 AM Referred By: Confirmed By:CINDY PIMENTEL
== END 2019-04-12 10:55 | disposition home or self-care (01) ==
LOC: ED 13:39 → PCU 04-09 07:03 → ICU 04-11 09:57
PROVIDERS: Family Medicine; Internal Medicine Cardiovascular Disease; Admitting Provider Internal Medicine; Emergency Provider Emergency Medicine; Family Provider Family Medicine; PCP Nurse Practitioner Adult Health; Visit Provider Internal Medicine
DX: I25.110 Atherosclerotic heart disease of native coronary artery with unstable angina pectoris (principal); I10 Essential (primary) hypertension; M79.7 Fibromyalgia; K21.9 Gastro-esophageal reflux disease without esophagitis; G62.9 Polyneuropathy, unspecified; R94.39 Abnormal result of other cardiovascular function study; M19.90 Unspecified osteoarthritis, unspecified site; G89.29 Other chronic pain; E78.5 Hyperlipidemia, unspecified; I08.3 Combined rheumatic disorders of mitral, aortic and tricuspid valves; I25.2 Old myocardial infarction; Z95.1 Presence of aortocoronary bypass graft; Z79.899 Other long term (current) drug therapy; Z79.52 Long term (current) use of systemic steroids; Z87.891 Personal history of nicotine dependence; Z87.11 Personal history of peptic ulcer disease; Z86.011 Personal history of benign neoplasm of the brain
CPT/HCPCS: 36415; 71045; 78452; 80048; 80053; 80061; 83735; 84484; 85025; 85027; 85347; 92928; 93005; 93017; 93306; 93459; 96361; 96372; 96374; 96375; 96376; 99152; 99153; 99218; 99285; A9500; C1760; J7030; Q9967; A4216; C1769; C9600; G0378; J2405; J2785

== ENCOUNTER 2019-05-01 14:49 | Observation (INO) | payer MEDICARE, SELFPAY ==
[2019-04-08 15:30] VITALS: BMI 30.7
[2019-04-11 11:26] VITALS: BMI 30.7
[2019-05-01] VITALS (11 sets, daily range): BP systolic 117–138; BP diastolic 54–69; PULSE 58–69; RESP 17–20; TEMP 36.4–36.7; O2SAT 95–98; BMI 32.2; BMI 31.0
--- NOTE | 2019-05-01 15:16 | RAD_ITS ---
STUDY: X-RAY CHEST REASON FOR EXAM: Female, 74 years old. Chest pain. History of stent placement. TECHNIQUE: Single frontal view of the chest. COMPARISON: April 08, 2019 FINDINGS: Stable mild hyperexpansion. There is no demonstrated pleural abnormality. Cardiomegaly with sternotomy wires and stent placement unchanged. Normal mediastinum and ramakrishna. Normal visualized pulmonary arteries. Aortic tortuosity with calcification. Normal visualized thoracic spine. Normal visualized ribs, clavicles, and shoulders. There is no demonstrated abnormality of the visualized soft tissue structures of the upper abdomen. RAD/Chest 1 View (Portable) IMPRESSION: Stable cardiomegaly with hyperexpansion. No acute superimposed finding. Electronically Signed: Timmy Carlos MD at 15:34 EST , Service support ,
--- NOTE | 2019-05-01 15:16 | EKG12_ITS ---
Test Reason : REPEAT Blood Pressure : / mmHG Vent. Rate : 058 BPM Atrial Rate : 058 BPM P-R Int : 152 ms QRS Dur : 078 ms QT Int : 454 ms P-R-T Axes : 026 039 059 degrees QTc Int : 445 ms Sinus bradycardia Otherwise normal ECG Confirmed by CINDY PIMENTEL ([id number]), editorial intern RANDY LIMON ([id number]) on 05/04/2019 12:57:34 PM Referred By: Starr Sanchez Confirmed By:CINDY PIMENTEL
--- NOTE | 2019-05-01 15:22 | ED.DCSUM_ITS ---
History of Present Illness Chief Complaint: Chest Pain Informant: Patient Onset: Today - about 12 hrs ago Activity at onset: Sleep - woke her up Timing: Continuous Quality: Heaviness - crushing Location: Substernal - w/ radiation into mid-upper back and RUE felt achy and heavy Current Severity: Moderate Maximum Severity: Severe Worsened By: Exertion Relieved By: Nothing - can't find my nitro Associated Symptoms: Diaphoresis, Dyspnea, - - generalized weakness/malaise. Negative for: Nausea, Vomiting, Cough, Fever, Lightheadedness, Palpitations Narrative: Patient had a circumflex stent placed around 3 weeks ago and has been at home, compliant with her aspirin and Plavix. Severe symptoms woke her up at 3 AM this morning but since the discomfort improved an hour after, she thought it might go away and so did not call or seek treatment until just prior to arrival in the ER. She called her director of recruitment and admissions Dr. Coto, he advised her to come to the emergency department right away by EMS but she decided to take a private vehicle. Prior Similar Symptoms: Yes, With Prior [place], With Prior Angina - Past Medical History (1) Atherosclerosis of coronary artery of [place] heart without angina pectoris Status: Chronic (2) Essential (primary) hypertension Status: Chronic Past Medical History - Allergies and Home Meds Allergies/Adverse Reactions: Allergies isometheptene [From Midrin] Allergy (Verified 05/01/19 14:55) shaking Sulfa (Sulfonamide Antibiotics) Allergy (Verified 05/01/19 14:55) throat Swelling codeine Adverse Reaction (Verified 05/01/19 14:55) Nausea/Vom/Diarrhea dichloralphenazone [From Midrin] Adverse Reaction (Verified 05/01/19 14:55) shaking ibuprofen Adverse Reaction (Verified 05/01/19 14:55) stomachaches topiramate [From Topamax] Adverse Reaction (Verified 05/01/19 14:55) I felt crazy Primary Care Physician: Stacie Rivers NP-C [Primary Care Provider] - Surgical History: coronary bypass surgery - 2007, total knee arthroplasty - left Lives: Spouse/ Significant Other Smoking Status: Former smoker - Family History Maternal Family History: Family History (Last Reviewed 04/08/19 @ 15:15 by Starr Sanchez DO) Grandmother Hypertension Father CVA (cerebral vascular accident) Heart disease Mother Hypertension Cancer Brother Cancer Sister Hypertension Family History: Reports: - - mother of small cell lung CA, brother with prostate CA, She has a sister with DM and another with CAD. FAther with [place] at 85 YOA Review of Systems General: Reports: Malaise. Denies: Chills, Fever, Sweats Eyes: Denies: Visual changes - bilaterally, Diplopia ENT: Denies: Rhinorrhea, Sore throat Cardiovascular: Reports: Chest pain. Denies: Palpitations Respiratory: Reports: Dyspnea. Denies: Cough, Dyspnea on exertion Gastrointestinal: Denies: Abdominal pain, Nausea, Vomiting, Diarrhea, Melena, Hematochezia Genitourinary: Denies: Dysuria, Hematuria, Frequency Musculoskeletal: Reports: Back pain, Extremity Pain - gone now. Denies: Neck pain, Swelling Skin: Denies: Rash, Wounds Neurological: Denies: Headache, Weakness, Numbness Physical Exam Vital Signs/Narrative: Vital Signs Temp Pulse Resp BP Pulse Ox 05/01/19 14:50 98.0 F 64 18 132/54 H 96 Inital Vital Signs reviewed: Yes General: Well nourished, Well developed, No Acute Distress Head: Normocephalic, Atraumatic Eyes: Perrl, EOMI ENT: Moist mucous membranes, No rhinorrhea Neck: Supple, Nontender Cardiovascular: Regular rate, Regular rhythm, No murmurs. Negative for: Tachycardia Respiratory: No distress, CTA bilaterally, Chest nontender Abdomen: Soft, Nontender, Nondistended, Normal bowel sounds Back: Nontender, Normal Inspection Extremities: Nontender, No edema. Negative for: Calf Tenderness Skin: Normal color, No rash, No Trauma Neurological: Alert, Oriented x3, Cranial nerves II-XII grossly intact, Normal Strength, Normal Sensation Psychological: Normal affect, Normal Mood Diagnostic/Tx/Re-eval Impressions Chest X-Ray 05/01/19 15:16 IMPRESSION: Stable cardiomegaly with hyperexpansion. No acute superimposed finding. Electronically Signed: Timmy Carlos MD at 15:34 EST , Service support , 05/01/19 15:16 Chest 1 View (Portable) [RAD] Stat Laboratory Results 1205/01/19 05/01/19 15:03 15:03 15:03 WBC 5.8 RBC 3.73 L Hgb 11.2 L Hct 35.0 L MCV 93.8 MCH 30.0 MCHC 32.0 RDW Std Deviation 42.3 RDW Coeff of Fredo 12.2 Plt Count 310 MPV 9.6 Immature Gran % (Auto) 0.200 Neut % (Auto) 63.4 Lymph % (Auto) 23.7 [place] % (Auto) 8.2 Eos % (Auto) 3.8 Baso % (Auto) 0.7 Absolute Neuts (auto) 3.7 Absolute Lymphs (auto) 1.38 Nucleated RBC % 0 APTT 33.2 Sodium 142 Potassium 4.4 Chloride 113 H Carbon Dioxide 26.0 Anion Gap 3 L BUN 14 Creatinine 0.96 Estim Creat Clear Calc 45.07 Est GFR (MDRD) Af Amer 73 Est GFR (MDRD) Non-Af 61 BUN/Creatinine Ratio 14.6 Glucose 109 H Calcium 8.5 Troponin I 0.085 H - Rhythm Strip Rhythm Strip: Sinus Rhythm Rate: 61 Ectopy: None - EKG Initial EKG Interpretation: Sinus Rhythm, No Acute Injury Pattern - normal EKG Follow-up EKG Interpretation: Sinus Rhythm, No Acute Injury Pattern Prior: Unchanged Treatment: Aspirin, NTG SL Repeat Eval: 08/25 AZUL Risk: Age >/= 65, H/O CAD, ASA within 7 days, Severe Angina </=24 hours, Elevated Enzymes Score: 5 - Medical Decision Making EKG is normal. Enzymes are slightly elevated at 0.085. Her other enzymes around the time she had the stent were negative. She was given 1 nitroglycerin that just barely improved her discomfort. Therefore she was given a GI cocktail afterwards to see if this could be esophageal in nature given that it is worse when she lies down and better when she sits up, she did not notice a big difference and just kept complaining about the taste. I discussed with Dr. Coto, he suggests that Jimbo syndrome is a possibility here, and request that we add an ESR which is done and pending. He recommends putting nitroglycerin paste 0.5 inches on her chest, admitting her to telemetry, and trending her troponins and he will consult. EKG repeat is ordered. Will discus s with hospitalist. ED Disposition - Plan for ED Patient: Disposition: Acute Care Hospital [facility] Diagnosis: Chest pain Referrals: Stacie Rivers NP-C [Primary Care Provider] -
[2019-05-01] MEDS: Aspirin 81 MG TAB.CHEW 162 MG PO (15:24)
[2019-05-01] MEDS: 0.9% Normal Saline 1,000 ML 150 ML IV (15:32)
[2019-05-01] MEDS: Nitroglycerin SL (ED/IMG/CATH) 0.4 MG TABLET SUBLINGUAL (15:33)
[2019-05-01 15:39] LABS: Absolute Lymphocyte Count 1.38 X10^3/uL (0.83-4.51); Absolute Neutrophil Count 3.7 X10^3/uL (2.0-7.7); Basophil# 0.04 X10^3/uL; Basophil% 0.7 % (0-1); Eosinophil# 0.22 X10^3/uL; Eosinophils% 3.8 % (0-5); Hemoglobin 11.2 g/dL (12.0-15.0); Lymphocyte # 1.38 X10^3/ul (4.0); Lymphocyte % 23.7 % (19-41); Mean Corpuscular Volume 93.8 fL (81-99); Mean Platelet Vol. 9.6 fl (6.2-12.0); Monocyte# 0.48 X10^3/uL; Monocyte% 8.2 % (0-10); NRBC Flagged by Analyzer 0 % (0-5); Neutrophil # 3.69 X10^3/uL (2.7-7.7); Neutrophil % 63.4 % (47-70); Platelet Count 310 K/mm3 (150-450); RBC Distribution Width CV 12.2 % (11.6-14.6); RBC Distribution Width SD 42.3 fl (35.1-43.9); Red Blood Count 3.73 M/mm3 (4.2-5.4); White Blood Count 5.8 K/mm3 (4.4-11.0)
[2019-05-01 15:43] LABS: Partial Thromboplast Time 33.2 Seconds (24.1-36.2)
[2019-05-01 15:45] LABS: Anion Gap 3 (5-15); BUN 14 mg/dL (7-18); BUN/Creat Ratio 14.6 RATIO (10-20); Calcium,Total 8.5 mg/dL (8.5-10.1); Chloride 113 mmol/L (98-107); Creatinine, Serum 0.96 mg/dL (0.55-1.02); EST Glomerular Filtration Rate 61 mL/min (>60); Est Glom Filt Rate - Afr Amer 73 mL/min (>60); Estimated Creatinine Clearance 45.07 ml/min; Glucose 109 mg/dL (74-106); Potassium 4.4 mmol/L (3.5-5.1); Sodium Level 142 mmol/L (136-145)
[2019-05-01] MEDS: Mag Hydrox/Al Hydrox/Simeth 30 ML UDC PO (15:50)
--- NOTE | 2019-05-01 15:59 | EKG12_ITS ---
Test Reason : CP Blood Pressure : / mmHG Vent. Rate : 061 BPM Atrial Rate : 061 BPM P-R Int : 150 ms QRS Dur : 074 ms QT Int : 440 ms P-R-T Axes : 033 033 065 degrees QTc Int : 442 ms Normal sinus rhythm Normal ECG Confirmed by CINDY PIMENTEL ([id number]), publications editor RANDY LIMON ([id number]) on 05/04/2019 12:58:02 PM Referred By: Starr Sanchez Confirmed By:CINDY PIMENTEL
[2019-05-01] MEDS: Nitroglycerin Oint 1 INCH PACKET 0.5 INCH TRANSDERM. (16:15)
[2019-05-01 16:22] LABS: Erythrocyte Sedimentation Rate 35 mm/hr (0-30)
--- NOTE | 2019-05-01 16:25 | PCM.HP.STD ---
Problem List (1) Unstable angina Status: Acute (2) HLD (hyperlipidemia) Status: Chronic (3) Obesity (BMI 30.0-34.9) Status: Chronic (4) GERD (gastroesophageal reflux disease) Status: Chronic (5) Tobacco dependence in remission Status: Chronic Comment: Quit at 61 years of age. 58-yaol-hkmd smoking history. (6) Fibromyalgia Status: Chronic (7) Osteoarthritis Status: Chronic (8) Chronic low back pain Status: Chronic (9) Atherosclerosis of coronary artery of [place] heart without angina pectoris Status: Chronic (10) H/O coronary artery bypass surgery Status: Chronic Comment: CABG x 3 CHIU-LAD, Sequential SVG-OM1, OM2 2006 (11) History of coronary artery stent placement Status: Chronic Comment: PCI-MAEGAN-MID LCx with a 2.5 x 38 mm Promus Synergy 04/11/19 (12) Essential (primary) hypertension Status: Chronic (13) Elevated troponin Status: Acute (14) Chronic narcotic use Status: Chronic History of Present Illness Date of Admission: 05/01/19 Chief Complaint: chest pain that awoke her from sleep The patient is a 74 year old F with a past medical history of coronary artery disease, three-vessel CABG in 2006, stent to the left circumflex in March 2019, GERD, tobacco dependence in remission (quit at 61 YOA), fibromyalgia, hypertension, chronic low back pain, chronic narcotic use, history of a benign brain tumor (excised in 2005) and neuropathy who presented to the ED at [facility] on 05/01/19 at 14:50 stating she was awoken from sleep at 3 AM with severe anterior chest pain. The pain radiated to the right shoulder and into the back. It was associated with diaphoresis and SOB. She denies palpitations or nausea. She denies calf pain, hemoptysis, cough, fever/chills. She did not have NTG close by so she took a Percocet and about 1 hour later the pain was somewhat better. She has been taking almost all of her medications.....she may have missed a dose of ASA and she has stopped the statin due to pain/aching in her legs. At presentation to the ED she was given 1 SL NTG and then Nitropaste was applied....she states it really did not help much. Vital signs at presentation to the emergency room were temperature 98, pulse rate 64, blood pressure 132/54, respiratory rate 18 and she was 96% saturated on room air. ESR is mildly increased at 35. CBC showed a normal white blood cell count at 5.8 with unremarkable differential. Hemoglobin is 11.2, down from 12.7 on 04/12/2019. BMP is unremarkable. Troponin is indeterminate at 0.085. Chest x-ray shows no infiltrates, pleural effusions or pulmonary vascular congestion. The EKG shows normal sinus rhythm with no ST elevation, no ST depression and no suspicious T wave changes. When compared to an EKG from her admission in March there has been no change. She is being admitted to a monitored bed on PCU for serial CE's and consultation with cardiology in the AM. Past Medical History Past Medical History (Chronic Problems): Chronic Problems (Last Reviewed 05/01/19 @ 16:29 by Starr Sanchez DO) HLD (hyperlipidemia) (Chronic) Obesity (BMI 30.0-34.9) (Chronic) GERD (gastroesophageal reflux disease) (Chronic) Tobacco dependence in remission (Chronic) Quit at 61 years of age. 75-joca-bqox smoking history. Fibromyalgia (Chronic) Osteoarthritis (Chronic) Chronic low back pain (Chronic) Chronic narcotic use (Chronic) Atherosclerosis of coronary artery of [place] 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) H/O coronary artery bypass surgery (Chronic 2006) CABG x 3 CHIU-LAD, Sequential SVG-OM1, OM2 2006 History of coronary artery stent placement (Chronic 04/11/19) PCI-MAEGAN-MID LCx with a 2.5 x 38 mm Promus Synergy 04/11/19 Essential (primary) hypertension (Chronic) Medical History: Medical History (Last Reviewed 05/01/19 @ 16:29 by Starr Sanchez DO) Atherosclerosis of coronary artery of [place] 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) I25.10 Essential (primary) hypertension (Chronic) I10 Arthritis M19.90 Chronic low back pain M54.5, G89.29 Fibromyalgia M79.7 GERD (gastroesophageal reflux disease) K21.9 Leg cramps R25.2 Neuropathy G62.9 Neuropathy G62.9 Plantar fasciitis M72.2 Stomach ulcer K25.9 Tobacco dependence in remission F17.201 quit smoking at 61 YOA Brain tumor D49.6 Allergies isometheptene [From Midrin] Allergy (Verified 05/01/19 14:55) shaking Sulfa (Sulfonamide Antibiotics) Allergy (Verified 05/01/19 14:55) throat Swelling codeine Adverse Reaction (Verified 05/01/19 14:55) Nausea/Vom/Diarrhea dichloralphenazone [From Midrin] Adverse Reaction (Verified 05/01/19 14:55) shaking ibuprofen Adverse Reaction (Verified 05/01/19 14:55) stomachaches topiramate [From Topamax] Adverse Reaction (Verified 05/01/19 14:55) I felt crazy Home Medications: Ambulatory Orders Medication Instructions Recorded Citalopram [Celexa] 20 mg PO DAILY 02/18/16 Oxycodone HCl/Acetaminophen 1 tab PO 4X/DAY 01/14/18 [Oxycodon-Acetaminophen 7.5-325] methocarbamol 500 mg tablet 500 mg PO TID PRN PRN 09/27/18 Gabapentin [Neurontin] 300 mg PO TID 04/08/19 Losartan Potassium 100 mg PO DAILY 04/08/19 Amlodipine [Norvasc] 10 mg PO DAILY #30 tab 04/12/19 Aspirin E.C. [Ecotrin] 81 mg PO DAILY@0800 #30 tab 04/12/19 Clopidogrel Bisulfate [Plavix] 75 mg PO DAILY #30 tab 04/12/19 Metoprolol(XL)Succ [Toprol Xl 50 mg PO DAILY #30 tab 04/12/19 (Beta Hermelindo)] Surgical History: Surgical History (Last Reviewed 05/01/19 @ 16:29 by Starr Sanchez DO) H/O coronary artery bypass surgery (Chronic) Onset Date: 2006 Z95.1 CABG x 3 CHIU-LAD, Sequential SVG-OM1, OM2 2006 History of coronary artery stent placement (Resolved) Onset Date: 04/11/19 Z95.5 PCI-MAEGAN-MID LCx with a 2.5 x 38 mm Promus Synergy 04/11/19 History of laparoscopic cholecystectomy Z90.49 H/O laminectomy Z98.890 History of bladder surgery Z98.890 bladder sling History of craniotomy Z98.890 History of fusion of cervical spine Z98.1 History of hysterectomy Z90.710 Surgical History: coronary bypass surgery - 2007, total knee arthroplasty - left Psychiatric History: No pertinent 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 History: dysfunctional uterine bld - had a partial hysterectomy followed by a total hysterectomy when the bladder suspension surgery was done Lives: Spouse/ Significant Other Smoking Status: Former smoker - quit qt 61 YOA Tobacco Use: Non-smoker Alcohol: Occasional Drugs: None - *Family History Maternal Family History: Family History (Last Reviewed 05/01/19 @ 16:30 by Starr Sanchez DO) Grandmother Hypertension Father CVA (cerebral vascular accident) Heart disease Mother Hypertension Cancer Brother Cancer Sister Hypertension History Items: - - mother of small cell lung CA, brother with prostate CA, She has a sister with DM and another with CAD. FAther with [place] at 85 YOA Review of Systems Constitutional: Denies: Anorexia, Chills, Fever, Night Sweats, Weakness, Weight Change HEENT: Denies: Head Aches, Sinus Congestion, Sinus Drainage, Sore Throat Cardiovascular: Reports: Chest Pain, Heaviness. Denies: Edema, Light Headedness, Orthopnea, Palpitations, Paroxysmal Noc. Dyspnea Respiratory: Reports: Shortness of Breath - with the chest pain. Denies: Cough, Shortness of breath at rest, Sputum production, Wheezing Gastrointestinal: Denies: Abdominal Pain, Diarrhea, Nausea, Vomiting Genitourinary: Denies: Dysuria Gynecological: Denies: Breast symptoms, Vaginal discharge Musculoskeletal: Reports: Joint Pain - shoulders. Denies: Joint Tenderness, Neck Pain Skin: Denies: Jaundice, Rash, Wounds Neurological: Denies: Focal weakness, Numbness, Tingling, Tremor, Seizures Psychiatric: Reports: Depression. Denies: Anxiety, Homicidal Ideations, Suicidal Ideations Endocrine: Denies: Change in Body Habitus Hematologic/ Lymphatic: Denies: Easy Bruising, Easy Bleeding, Hx of blood clot, Hx of blood transfusion VTE Information - Inpt Only VTE Present on Admission: No VTE Mechan Device Prophylaxis: None VTE Pharm Prophylaxis ordered?: Yes Patient Problems: Active and Suspected Problems (Last Reviewed 05/01/19 @ 16:29 by Starr Sanchez DO) Unstable angina (Acute) Elevated troponin (Acute) Chest pain (Acute) - Physical Exam Vitals/I&O's: Vital Signs Temp Pulse Resp BP Pulse Ox 98.0 F 60 20 H 117/65 96 05/01/19 14:50 05/01/19 16:18 05/01/19 16:18 05/01/19 16:18 05/01/19 16:18 Oxygen Flow Rate (L/min) 2 Oxygen Delivery Method Nasal Cannula Weight: 187 lb 11.2 oz Body Mass Index (BMI) 32.2 General: Alert, Oriented x3, Cooperative HEENT: Atraumatic, PERRLA, EOMI, Normocephalic Oral: Moist Mucosa, No Gingival or Mucosal Lesions/ Ulcerations Neck: Supple, No JVD, Negative Carotid Bruits, No Nodes, Trachea Midline Lungs: Normal air movement, No rhonchi, No wheeze, Rales - she has coarse crackles in the bases that did not go away with a few deep breaths Cardiovascular: Regular rate, Regular Rhythm, Normal S1, Normal S2, No murmurs, No rub noted, No Gallop Abdomen: Bowel Sounds Present, Soft, Non Tender, Non-Distended, Obese Extremities: No clubbing, No cyanosis, No edema, Capillary Refill Less than 3 Seconds, Peripheral Pulses Normal Skin: No rashes, No breakdown Musculoskeletal: No Tenderness to Palpation of Joints or Extremities Neurological: Cranial nerves II-XII grossly intact, Neuro grossly intact Psych/Mental Status: Normal Affect, Appropriate Laboratory Results 05/01/19 15:03: WBC 5.8, RBC 3.73 L, Hgb 11.2 L, Hct 35.0 L, MCV 93.8, MCH 30.0, MCHC 32.0, RDW Std Deviation 42.3, RDW Coeff of Fredo 12.2, Plt Count 310, MPV 9.6, Immature Gran % (Auto) 0.200, Neut % (Auto) 63.4, Lymph % (Auto) 23.7, [place] % (Auto) 8.2, Eos % (Auto) 3.8, Baso % (Auto) 0.7, Absolute Neuts (auto) 3.7, Absolute Lymphs (auto) 1.38, Nucleated RBC % 0 05/01/19 15:03: APTT 33.2 05/01/19 15:03: Sodium 142, Potassium 4.4, Chloride 113 H, Carbon Dioxide 26.0, Anion Gap 3 L, BUN 14, Creatinine 0.96, Estim Creat Clear Calc 45.07, Est GFR (MDRD) Af Amer 73, Est GFR (MDRD) Non-Af 61, BUN/Creatinine Ratio 14.6, Glucose 109 H, Calcium 8.5, Troponin I 0.085 H 05/01/19 15:03: ESR 35 H Current Medications Sodium Chloride () 1,000 mls @ 150 mls/hr IV .Q6H40M CARMEN Last Admin: 05/01/19 15:32 Dose: 150 mls/hr Documented by: Nitroglycerin (Nitrostat) 0.4 mg SUBLINGUAL Q5M PRN PRN Reason: Chest pain Last Admin: 05/01/19 15:33 Dose: 0.4 mg Documented by: Assessment/Plan All Active Problems (Last Reviewed 05/01/19 @ 16:29 by Starr Sanchez DO) Unstable angina (Acute) Elevated troponin (Acute) Chest pain (Acute) Brain tumor (benign) (Resolved) Unstable angina (Resolved) Impressions 1. Unstable angina with indeterminate troponin and a normal EKG. ESR is mildly increased...pericarditis is in the differential and so is GERD. Serial CE's ordered. EKG in the AM. Keep the Nitropaste on. Pt was told to call her nurse immediately if any recurrence of the pain. EKG PRN CP. 2. CAD with hx of CABG X3 in 2006 and a stent to the LCx in March of 2019. May have missed a dose of ASA and she is not taking a Satin due to muscle pain. 3. Indeterminate troponin with a normal EKG. Serial CE's ordered. 4. Mild decrease in HGB since her last admission and she is on 2 antiplatelet agents. Will check a Hemoccult stool and give Famotidine 20 mg BIS...she has a know hx of reflux. 5. HTN/HLD/fibromyalgia/GERD/former smoker - quit at 61YOA/neuropathy/OA - chronic. Continue home medications Consult ordered with Dr. Coto...notified by Dr. Maldonado from the ED Code Visit OBSV E&M: [id number] Initial observation care L3
--- NOTE | 2019-05-01 17:16 | EKG12_ITS ---
Test Reason : CP ADMISSION Blood Pressure : / mmHG Vent. Rate : 062 BPM Atrial Rate : 062 BPM P-R Int : 146 ms QRS Dur : 078 ms QT Int : 456 ms P-R-T Axes : 033 039 059 degrees QTc Int : 462 ms Normal sinus rhythm Normal ECG No previous ECGs available Confirmed by CHAS SEXTON, SHAD ([id number]), editorial manager ONUR COMBS ([id number]) on 05/09/2019 12:58:16 PM Referred By: Starr Sanchez Confirmed By:YI DOHERTY MD
[2019-05-01 17:35] LABS: Magnesium 2.1 mg/dL (1.6-2.6)
[2019-05-01] MEDS: 0.9% Normal Saline 1,000 ML 50 ML IV (17:56)
[2019-05-01] MEDS: oxyCODONE 5 MG Tablet 7.5 MG PO ×2 (18:17→22:47)
[2019-05-01] MEDS: Acetaminophen 325 MG Tablet PO ×2 (18:17→22:48)
[2019-05-01] MEDS: Gabapentin 300 MG Capsule PO (22:47)
[2019-05-01] MEDS: Famotidine 20 MG Tablet PO (22:48)
[2019-05-02] VITALS (27 sets, daily range): BP systolic 119–156; BP diastolic 17–73; PULSE 54–63; RESP 14–22; TEMP 36.7–36.9; O2SAT 90–99
[2019-05-02] MEDS: MELATONIN 3 MG TABLET PO (00:20)
[2019-05-02] MEDS: Gabapentin 300 MG Capsule PO ×3 (05:06→21:30)
[2019-05-02] MEDS: Aspirin E.C. 81 MG Tablet PO (05:06)
[2019-05-02] MEDS: amLODIPine 10 MG Tablet PO (05:07)
[2019-05-02] MEDS: Clopidogrel Bisulfate 75 MG Tablet PO (05:07)
[2019-05-02] MEDS: Losartan Potassium 100 MG Tablet PO (05:07)
--- NOTE | 2019-05-02 05:55 | EKG12_ITS ---
Test Reason : AM EKG Blood Pressure : / mmHG Vent. Rate : 057 BPM Atrial Rate : 057 BPM P-R Int : 156 ms QRS Dur : 074 ms QT Int : 466 ms P-R-T Axes : 051 047 060 degrees QTc Int : 453 ms Sinus bradycardia Otherwise normal ECG When compared with ECG of 01-MAY-2019 16:23, MANUAL COMPARISON REQUIRED, DATA IS UNCONFIRMED Confirmed by SCOTT SEXTON, RUKHSANA ([id number]), image editor DEVAUGHN PEREZ ([id number]) on 05/04/2019 11:41:04 AM Referred By: Starr Sanchez Confirmed By:RUKHSANA CHAVEZ MD
[2019-05-02] MEDS: Morphine 2 MG/ML Syringe IV ×2 (06:31→23:41)
[2019-05-02] MEDS: Metoprolol(XL)Succ 50 MG Tablet PO (07:46)
--- NOTE | 2019-05-02 08:52 | NURSING ---
Report called to ICU. Report given to Ritika GALLARDO.
[2019-05-02 08:55] LABS: ACT Activated Clotting Time 175 sec (74-137)
--- NOTE | 2019-05-02 09:00 | EKG12_ITS ---
Test Reason : MORNING EKG Blood Pressure : / mmHG Vent. Rate : 056 BPM Atrial Rate : 056 BPM P-R Int : 158 ms QRS Dur : 084 ms QT Int : 466 ms P-R-T Axes : 045 051 074 degrees QTc Int : 449 ms Sinus bradycardia Otherwise normal ECG Confirmed by BERNABE SEXTON, REBECCA ([id number]), associate entertainment editor DEVAUGHN PEREZ ([id number]) on 05/04/2019 1:31:47 PM Referred By: Starr Sanchez Confirmed By:REBECCA KIDD MD
--- NOTE | 2019-05-02 09:25 | CL.I_ITS ---
Patient Name: SOFIA KULKARNI Study Date: 05/02/2019 Performing: Mike Coto MD Ht: 64 inches 163 cm : 1945 Wt: 181 lbs 82 kg Age: 74 Gender: female BSA: 1.88 PROCEDURE(S) PERFORMED [id number], SINGLE CORONARY ARTERY [id number]/COR/LV/CABG CLINICAL PROFILE AND CO-MORBIDITIES Patient presents with NSTEMI for urgent cardiac cath Indications: ACS <= 24 hrs, Stable Known CAD Heart Failure: None Stress/Imaging Stress/Image Study Performed: No Angina Classification Anginal Classification w/in 2 Weeks: No symptoms CAD Presentations: Unstable angina. Non-STEMI. Symptom onset Date/Time: 05/01/2019 03:00:00 Time Estimated Comorbidities/Risk Factors: Hypertension Dyslipidemia Prior PCI CONCLUSIONS Normal LV size, wall motion,and systolic function Single vessel CAD of the mid LCX with sub-acute in stent thrombosis from medical non compliance of DA PT by patient. Widely patent SVG to DIAG/OM Successful PCI with thrombectomy of mid LCX recently placed stent, followed by PTCA of mid LCX stent utilizing a 3.0 x 12 NC balloon; 50%-->0%, no dissection or perforation. RECOMMENDATIONS Referred for immediate PCI Highly recommend quitting all tobacco products Follow up with primary cellular plastics cutter Risk factor modification ASA Indefinitley Plavix for at least 12 months Routine post interventional care Refer for Outpatient Cardiac Rehab Manual sheath removal per protocol Follow up with Dr. Coto Successful Mynx Control closure of RFA. Switch from asa/plavix to asa/brilinta, as well as adding PPI. DESCRIPTION OF PROCEDURE The patient arrived to the procedure lab. The risks and benefits of the procedure as well as a full d escription of our services here and lack of surgical backup were fully explained to the patient and/o r their significant other prior to the catheterization. The Timeout was completed, verifying the rufino ect patient and procedure. The patient's procedural site was prepped and draped in the usual fashion. Local anesthetic was given subcutaneously to right groin region with Lidocaine 2%. Using a modified Seldinger technique, arterial access was obtained via the right femoral artery, a 4Fr sheath was inse rted. Left Coronary Artery selective angiography was performed in multiple views using a 4 Fr. JL5 c atheter. Right Coronary Artery selective angiography was then performed in multiple views using a 4 F r. 3DRC catheter. Saphenous Vein graft to the OM 1 selective angiography was performed in multiple vi ews using a 4 Fr. 3DRC catheter. Saphenous Vein graft to the OM 2 selective angiography was performed in multiple views using a 4 Fr. 3DRC catheter. Left Ventriculography was performed in R AO projection using a 4 Fr. Pigtail catheter. LV to AO pullback pressures were then recordedThe image s were reviewed and options discussed. A decision was then made to proceed with an Intervention, IVUS or other adjunct procedure. Arterial sheath was exchanged for a 6 Fr Sheath. EBU 3.75 Guide catheter was inserted and engaged into the LCA. BMW Guide wire was advanced to the Circumflex. Clive AP inserted Pass # 1 Angiogram p erformed pre balloon dilatation. 3.0 x 12 NC Emerge Balloon catheter was inserted. Balloon catheter w as advanced across lesion in the circumflex, mid. Angiogram performed post balloon dilatation. Balloo n catheter was reinserted Angiogram performed post balloon dilatation. The arterial sheath was pull ed and a Mynx closure device was deployed for hemostasis CORONARY ANGIOGRAPHY DOMINANCE: Co- Dominant LEFT HEART ASSESSMENT Left Ventricular Ejection Fraction: by LV Gram 65 % Normal Left Ventricular systolic function LVEDP: 25 mmHg Normal LV wall motion LEFT MAIN: Angiographically normal LEFT ANTERIOR DESCENDING ARTERY: MID LAD: 85 % Stenosis CIRCUMFLEX ARTERY: MID CIRC: Instent restenosis 50 % RIGHT CORONARY ARTERY: Angiographically normal GRAFTS: Sequential graft to the DIAG and OM is widely patent. CHIU graft to the LAD was patent on recent cath on 04/11/19; not re-engaged on this cath. INTERVENTION INFORMATION LESION SITE: Circumflex (Mid) Lesion Complexity: High/C, lesion at bifurcation: No, thrombus present: Yes, lesion length: 12 mm, cu lprit lesion: Yes Pre Stenosis: 50 % Pre intervention AZUL flow: 3 PROCEDURE: Balloon Angioplasty, Thrombectomy Post Stenosis: 0 % Post intervention AZUL flow: 3 Lesion Devices: Abdul .014 BMW Avella Straight 190cm Medtronic 6 Fr EBU3.75 100cm Guide Catheter Medtronic 6 Fr. Clive AP Aspiration Catheter Mele Sci NC EMERGE MR 3.00x12 BALLOON COMPLICATIONS No Complications PROCEDURE MEDICATIONS Versed 1 mg IV Oxygen: 2 L/min via nasal cannula Benadryl 50 mg IV 05/02/2019 08:14:19 Brilinta 180 mg PO @ 05/02/2019 08:41:00 Heparin 6000 unit(s) IV 05/02/2019 08:28:31 Nitro 200 mcg IC 05/02/2019 08:37:54 SUMMARY OF HEMODYNAMIC DATA Time AIR REST ECG 07:57:38 AO 158/66 (100) SA 08:21:40 LV 157/-15, 25 08:26:10 LV 159/-15, 25 08:26:15 LVp 163/1, 39 08:26:22 AOp 157/61 (95) 08:26:27 Signed By Mike Coto MD On 05/02/2019 9:25:03 AM Mike Coto MD
[2019-05-02] MEDS: 0.9% Normal Saline 1,000 ML 150 ML IV (09:26)
[2019-05-02] MEDS: DiphenhydrAMINE 25 MG Capsule 50 MG PO (09:27)
--- NOTE | 2019-05-02 10:00 | EKG12_ITS ---
Test Reason : POST PCI Blood Pressure : / mmHG Vent. Rate : 059 BPM Atrial Rate : 059 BPM P-R Int : 152 ms QRS Dur : 088 ms QT Int : 450 ms P-R-T Axes : 035 042 071 degrees QTc Int : 445 ms Sinus bradycardia Otherwise normal ECG Confirmed by BERNABE SEXTON, REBECCA ([id number]), assignment desk editor DEVAUGHN PEREZ ([id number]) on 05/04/2019 1:33:11 PM Referred By: Starr Sanchez Confirmed By:REBECCA KIDD MD
[2019-05-02] MEDS: Citalopram 20 MG Tablet PO (10:19)
[2019-05-02] MEDS: Acetaminophen 325 MG Tablet PO ×4 (10:20→21:29)
[2019-05-02] MEDS: Famotidine 20 MG Tablet PO ×2 (10:20→21:29)
[2019-05-02] MEDS: Pantoprazole Sodium 20 MG Tablet PO (10:20)
--- NOTE | 2019-05-02 11:21 | CRPHASE1 ---
Patient Communication Former Patient:: Phase I PHII Cardiac Rehab Discussed with Patient:: Yes Guide to Cardiac Rehab Given to Patient:: Yes Cardiac Rehab Facility Choice List Given to Patient:: Yes Choice Program [facility] CR PHII:: Communication Given to CR, Refer to [facility] Health Education Director:: Mike Coto Refer Phase II Cardiac Rehab:: Yes Sessions:: 36 sessions - 3 days/wk, 12 weeks - PATIENT ALSO SEEN 03/2019 FOLLOWING PREVIOUS PCI INTERVENTION Risk Factors/Lifestyle Family History: Family History (Last Reviewed 05/01/19 @ 16:30 by Starr Sanchez DO) Grandmother Hypertension Father CVA (cerebral vascular accident) Heart disease Mother Hypertension Cancer Brother Cancer Sister Hypertension Cardiac Rehabilitation Info Cardiac Rehabilitation Program Information: Cardiac Rehabilitation is important for patients like you who are recovering from a heart problem. Cardiac rehabilitation programs are recognized as integral to the continued care of the patient with coronary heart disease. The cardiac rehabilitation program is designed to optimize a patient's physical, psychological, and social functioning. Health reservoir caretaker work in cardiac rehabilitation programs and assist you with getting the treatments you need to get stronger and healthier - like exercise, healthy eating habits, and medications. Cardiac rehabilitation has been show to help people with heart problems live longer and have better life enjoyment than people who do not go to cardiac rehabilitation. Please contact the Cardiac Rehabilitation Program at [facility] at in two weeks if you have not heard from them.
--- NOTE | 2019-05-02 11:22 | CRPH1.INSTRU ---
General Education CAD and cardiac anatomy and function:: Patient communicates acknowledgment Explanation of diagnoses and procedures:: Patient communicates acknowledgment Sign/Symptoms of PA:: Patient communicates acknowledgment Antiplatelet therapy: Patient communicates acknowledgment Proper use of NTG-SL: Patient communicates acknowledgment Emergency procedures and activation of EMS: Patient communicates acknowledgment Compliance of all prescribed medications: Patient communicates acknowledgment - PATIENT WAS GIVEN BOOKLET, SPOKE WITH FAMILY. PATIENT WAS PREVIOUSLY SEEN IN 03/2019 FOLLOWING A PREVIOUS PCI INTERVENTION.
--- NOTE | 2019-05-02 14:09 | CASEMGMT ---
RN CM Note: Intro role of CM to patient's and family. Explained pt will be on Brilinta. Savings card given and explained. Swapna QUEZADAN RN ACM
[2019-05-02] MEDS: oxyCODONE 5 MG Tablet 7.5 MG PO ×3 (15:05→21:30)
--- NOTE | 2019-05-02 16:00 | NURSING ---
Patient sitting up in the chair, called this RN into room c/o right groin pain. Groin site soft, no hematoma noted. Patient assisted back to bed. This RN, Juventino Vasquez RN and Blanca GALLARDO listened to cath site for bruit, faint one heard. Vitals stable. Ice pack applied to groin. MD notified and orders given.
--- NOTE | 2019-05-02 17:05 | PN_ITS ---
Patient Problems: Active and Suspected Problems (Last Reviewed 05/01/19 @ 16:29 by Starr Sanchez DO) Unstable angina (Acute) Elevated troponin (Acute) Chest pain (Acute) Subjective: Patient was seen and examined today, I talked with cardiology about her care briefly today, she underwent a cardiac catheterization today which revealed single-vessel coronary artery disease of the mid circumflex artery with subacute in-stent thrombosis, she subsequently underwent a balloon angioplasty with thrombectomy. At this time, patient is in the ICU, she does not complain of any shortness of breath or chest pain, I talked with her daughter who was in her room at the time of my examination today. - Physical Exam Vitals/I&O's: Vital Signs Temp Pulse Resp BP Pulse Ox 98.4 F 59 L 18 144/60 H 97 05/02/19 12:00 05/02/19 16:00 05/02/19 16:00 05/02/19 16:00 05/02/19 16:00 Oxygen Flow Rate (L/min) 2 Oxygen Delivery Method Room Air Weight: 82 kg Body Mass Index (BMI) 31.0 Intake and Output for Last 24 Hours 04/30/19 05/01/19 05/02/19 23:59 23:59 23:59 Intake Total 1600 / 1600 1726.67 / 1726.67 Output Total 1200 / 1200 Balance 1600 / 1600 526.67 / 526.67 General: Alert, Oriented x3, Cooperative, No apparent distress, Well developed, Well nourished HEENT: Atraumatic, PERRLA, EOMI, Normocephalic Oral: Moist Mucosa Neck: Supple, No JVD, Negative Carotid Bruits, Trachea Midline, Thyroid Normal Size and Texture Lungs: Clear to auscultation, Normal air movement, No rhonchi, No wheeze, No rales Cardiovascular: Regular rate, Regular Rhythm, Normal S1, Normal S2, No murmurs, No Ectopic Activity, PMI Normal, No rub noted Abdomen: Bowel Sounds Present, Soft, Non Tender, Non-Distended Extremities: No clubbing, No cyanosis, No edema, Capillary Refill Less than 3 Seconds Skin: No rashes, No breakdown Musculoskeletal: No Tenderness to Palpation of Joints or Extremities Neurological: Cranial nerves II-XII grossly intact, Neuro grossly intact, Sensory exam intact to light touch and pain, Coordination normal Psych/Mental Status: Normal Affect, Appropriate, Alert and oriented to time, place, person, mood and affect Laboratory Results 05/01/19 15:03: Magnesium 2.1 05/01/19 18:10: Troponin I 0.104 H 05/01/19 20:47: Troponin I 0.084 H 05/02/19 08:42: Activated Clotting Time 175 H Current Medications Acetaminophen (Tylenol) 325 mg PO 4X/DAY [facility] Last Admin: 05/02/19 15:03 Dose: 325 mg Documented by: Al Hydroxide/Mg Hydroxide (Mylanta Ii) 30 ml PO Q6H PRN PRN PRN Reason: Gastric Burning Amlodipine Besylate (Norvasc) 10 mg PO DAILY [facility] Last Admin: 05/02/19 05:07 Dose: 10 mg Documented by: Aspirin (Ecotrin) 81 mg PO DAILY@0800 [facility] Last Admin: 05/02/19 05:06 Dose: 81 mg Documented by: Atropine Sulfate () 0.5 mg IV UD PRN PRN Reason: HR <50 bpm Citalopram Hydrobromide (Celexa) 20 mg PO DAILY [facility] Last Admin: 05/02/19 10:19 Dose: 20 mg Documented by: Famotidine (Pepcid) 20 mg PO BID [facility] Last Admin: 05/02/19 10:20 Dose: 20 mg Documented by: Gabapentin (Neurontin) 300 mg PO TID [facility] Last Admin: 05/02/19 15:03 Dose: 300 mg Documented by: Heparin Sodium (Beef Lung) (Heparin 500 Unit/5 Ml (100/Ml)) 500 unit IV UD PRN PRN Reason: HEPARIN FLUSH Sodium Chloride () 1,000 mls @ 15 mls/hr IV .Q48H [facility] Last Admin: 05/02/19 07:48 Dose: Not Given Documented by: Labetalol HCl (Trandate) 5 mg IV X1 PRN PRN Reason: SBP > 160 when pulling sheath Stop: 05/04/19 08:50 Lorazepam (Ativan) 1 mg PO Q6H PRN PRN PRN Reason: BACK SPASMS/ANXIETY Losartan Potassium (Cozaar) 100 mg PO DAILY [facility] Last Admin: 05/02/19 05:07 Dose: 100 mg Documented by: Melatonin (Melatonin) 3 mg PO QHS PRN PRN PRN Reason: INSOMNIA Last Admin: 05/02/19 00:20 Dose: 3 mg Documented by: Methocarbamol (Robaxin) 500 mg PO TID PRN PRN PRN Reason: MUSCLE RELAXER Metoclopramide HCl (Reglan) 5 mg IV Q6H PRN PRN PRN Reason: NAUSEA/VOMITING Metoprolol Succinate (Toprol Xl (Beta Hermelindo)) 50 mg PO DAILY [facility] Last Admin: 05/02/19 07:46 Dose: 50 mg Documented by: Morphine Sulfate () 2 mg IV Q3H PRN PRN PRN Reason: Pain Score 6-10/10 Last Admin: 05/02/19 06:31 Dose: 2 mg Documented by: Nitroglycerin (Nitrostat) 0.4 mg SUBLINGUAL Q5M PRN PRN Reason: Chest pain Last Admin: 05/01/19 15:33 Dose: 0.4 mg Documented by: Ondansetron HCl (Zofran) 4 mg IV Q8H PRN PRN PRN Reason: NAUSEA/VOMITING Oxycodone HCl (Oxyir) 7.5 mg PO 4X/DAY [facility] Last Admin: 05/02/19 15:05 Dose: 7.5 mg Documented by: Pantoprazole Sodium (Protonix) 20 mg PO DAILY [facility] Last Admin: 05/02/19 10:20 Dose: 20 mg Documented by: Prochlorperazine Edisylate (Compazine Iv) 5 mg IV Q4H PRN PRN PRN Reason: Breakthrough Nausea/Vomiting Sodium Chloride () 10 - 40 ml IV UD PRN PRN Reason: SALINE FLUSH Sodium Chloride () 500 ml IV BOLUS PRN PRN Reason: VASO-VAGAL PROTOCOL Ticagrelor (Brilinta) 90 mg PO BID [facility] Medical Necessity - Tobacco Use Smoking Status: Former smoker Tobacco Use: Non-smoker Assessment/Plan All Active Problems (Last Reviewed 05/01/19 @ 16:29 by Starr Sanchez DO) Unstable angina (Acute) Elevated troponin (Acute) Chest pain (Acute) Brain tumor (benign) (Resolved) Unstable angina (Resolved) #1 [id number] day 0 balloon angioplasty and thrombectomy circumflex artery-patient will remain in ICU and be reevaluated tomorrow morning by cardiology #2 unstable angina #3 essential hypertension #4 hyperlipidemia Code Visit OBSV E&M: 00748 Subsequent observation care L3
[2019-05-02] MEDS: TICAGRELOR 90 MG TABLET PO (21:29)
[2019-05-02] MEDS: 0.9% Saline Lock 10 ML Syringe IV (23:41)
[2019-05-03] VITALS (16 sets, daily range): BP systolic 127–163; BP diastolic 42–82; PULSE 50–70; RESP 15–20; TEMP 36.6–36.8; O2SAT 91–98
[2019-05-03 04:27] LABS: Hematocrit 34.2 % (37-47); Hemoglobin 11.1 g/dL (12.0-15.0); Mean Corp Hgb Conc 32.5 g/dL (32-36); Mean Corpuscular Hgb 30.1 pg (27.0-32.0); Mean Corpuscular Volume 92.7 fL (81-99); Mean Platelet Vol. 9.5 fl (6.2-12.0); Platelet Count 276 K/mm3 (150-450); RBC Distribution Width CV 12.4 % (11.6-14.6); RBC Distribution Width SD 42.1 fl (35.1-43.9); Red Blood Count 3.69 M/mm3 (4.2-5.4)
[2019-05-03 04:52] LABS: ALB/GLOB Ratio 0.8 RATIO (0.9-2.4); AST(SGOT) 13 U/L (15-37); Alanine Aminotransfer ALT/SGPT 18 U/L (13-56); Albumin, Serum 2.8 g/dL (3.2-5.0); Alkaline Phosphatase 75 U/L (45-117); Anion Gap 2 (5-15); BUN 17 mg/dL (7-18); BUN/Creat Ratio 18.5 RATIO (10-20); Calcium,Total 8.4 mg/dL (8.5-10.1); Chloride 110 mmol/L (98-107); Creatinine, Serum 0.92 mg/dL (0.55-1.02); EST Glomerular Filtration Rate 64 mL/min (>60); Est Glom Filt Rate - Afr Amer 77 mL/min (>60); Estimated Creatinine Clearance 47.03 ml/min; Globulin 3.3 g/dL (2.2-4.2); Glucose 95 mg/dL (74-106); Potassium 4.5 mmol/L (3.5-5.1); Protein, Total 6.1 g/dL (6.4-8.2); Sodium Level 142 mmol/L (136-145)
[2019-05-03] MEDS: Gabapentin 300 MG Capsule PO (05:47)
--- NOTE | 2019-05-03 07:00 | ADUL_ITS ---
Reason For Study: Post heart cath, r/o pseudoaneirysm Right Velocities Right MARINE STEAM FITTER measures 0.91 x 0.92 cm with a velocity of 137.4 cm/sec. Right SFA measures 0.54 x 0.60 cm with a velcoity of 113.3 cm/sec. Right CFV and FV are compressible with normal flow noted. No pseudoaneurysm noted. Procedure Prelim to Juve GALLARDO. Exam performed portable in ICU/CCU. Interpretation Summary Normal right common femoral artery diameter and velocity flow. Patent and compressible right common femoral vein and femoral vein No evidence for pseudoaneurysm or arteriovenous fistula identified Ordering Physician: Mike Coto Referring Physician: Stacie Rivers Performed By: Nadine Antony RVT
--- NOTE | 2019-05-03 08:10 | PCM.PN.CARD ---
Subjectve: Patient seen and examined this morning, no further chest pain. Right groin is clean/dry/intact without evidence of thrills, bruits or hematoma. Patient does have some mild tenderness, and reportedly had a bruit yesterday evening per the nursing staff. She has 2+ DP and PT pulses bilaterally. EKG shows normal sinus rhythm, no acute changes. Telemetry negative. Hemoglobin and creatinine within nominal limits. Patient admits to missing 3 days of her aspirin prior to arrival. Objective: Vital Signs Temp Pulse Resp BP Pulse Ox 97.8 F 50 L 20 H 159/55 H 91 05/03/19 04:00 05/03/19 06:00 05/03/19 06:00 05/03/19 06:00 05/03/19 06:00 Oxygen Flow Rate (L/min) 1 Oxygen Delivery Method Room Air Weight: 180 lb 15.992 oz Body Mass Index (BMI) 31.0 Intake and Output for Last 24 Hours 05/01/19 05/02/19 05/03/19 23:59 23:59 23:59 Intake Total 1600 / 1600 2226.67 / 2346.67 120 / 120 Output Total 1550 / 2000 750 / 750 Balance 1600 / 1600 676.67 / 346.67 -630 / -630 General: Awake, Alert, Oriented x 3 HEENT: PERRL, EOMI, Sclera Non Icteric Neck: Supple, Good ROM, No Lymph Node Enlargement Lungs: Clear to auscultation Cardiovascular: Regular Rhythm, Normal S1, Normal S2, No Murmurs, No Rubs, No Gallops 05/03/19 04:15: WBC 6.0, RBC 3.69 L, Hgb 11.1 L, Hct 34.2 L, MCV 92.7, MCH 30.1, MCHC 32.5, Plt Count 276, MPV 9.5 05/03/19 04:15: Sodium 142, Potassium 4.5, Chloride 110 H, Carbon Dioxide 30.0, Anion Gap 2 L, BUN 17, Creatinine 0.92, Est GFR (MDRD) Af Amer 77, Est GFR (MDRD) Non-Af 64, BUN/Creatinine Ratio 18.5, Glucose 95, Calcium 8.4 L, Total Bilirubin 0.20 Rhythm: EKG: ECHO: Stress Test: Cardiac Cath: PCI: CT Surgery: Holter monitor: EPS: PPM: CXR: Chest CT Scan: Medical Necessity - Tobacco Use Smoking Status: Former smoker Tobacco Use: Non-smoker Assessment/Plan 1. Coronary artery disease: No anginal symptoms overnight. Telemetry negative. EKG unchanged. The patient presented with subacute thrombosis of her recently placed drug-eluting stent to her left circumflex on 04/11/2019. The patient readily admits that she has been noncompliant with her antiplatelet therapy missing at least 3 days of aspirin. Patient underwent urgent left heart catheterization, thrombectomy, and additional balloon dilatation of her left circumflex stent with an excellent result. The patient was replaced back on her baby aspirin and loaded with Brilinta. Recommend that she continue baby aspirin and Brilinta as a hedge to prevent recurrent in-stent thrombosis. In addition we will place her on PPI therapy to avoid possible GI upset or bleeding. 2. Hypertension: Her blood pressure and heart rate are fairly well controlled. She will continue amlodipine, losartan, and metoprolol. 3. Hyperlipidemia: I am uncertain as to why the patient is not on antilipid therapy, and would recommend starting her on Lipitor 20 mg p.o. nightly and repeating lipid profile in 6 weeks time. 4. Right groin bruit: The nursing staff reported the patient may have a right groin bruit yesterday after minx closure procedure. She does have some mild tenderness this morning, but no hematoma and I cannot detect a bruit. Just to be on the safe side we will obtain an ultrasound of her right groin to ensure that she does not have a pseudoaneurysm or AV fistula. If this is negative, the patient may be discharged home. 5. Patient may be discharged home and follow-up with Dr. Smith going forward. Code Visit Inpatient E&M: 17939 Subs Hosp L2
--- NOTE | 2019-05-03 10:03 | CASEMGMT ---
Addendum entered by Nadine Ibarra 05/03/19 12:32: 1214- Called [facility] retail pharmacy, s/w Kaur and states they have a Brillinta coupon card and will call this assembly instructions writer back with copay after coupon utilized. 1222-Return call from [facility] and states $0 copay, Per Kaur will deliver medication to patient bedside. Updated primary nurse Juve to relay to patient. KELLY Cobb Addendum entered by Nadine Ibarra 05/03/19 11:17: S/w patient and offered HHC for SN for medication reconciliation/compliance d/t medication change to Brillinta, also offered CCN for same. Patient declined/refused and states that her and son are able to do that and educated on such. Dr Celis and primary nurse Juve updated. KELLY Cobb Original Note: Case Management Progress Note: This assembly instructions writer to patient bedside, introduced self and role. Explained/reviewed JIMENEZ form with patient in regards to current treatment this hospital admission for Unstable Angina. Informed outpatient billing is determined by her Insurance Policy and continual review for any changes in condition that may warrant Inpatient stay are done. Questions addressed and provided contact number for [facility] Patient Financial Services to answer any additional questions regarding billing, also advised can call her Insurance. Patient states her handles that and will give to him if he has any questions. Discussed being DC'd on Brillinta, patient denies receiving a Brillinta card. This assembly instructions writer explained/discussed Brillinta and provided a Coupon card. Aware this CM can call her preferred pharmacy once order is sent to get soriano and provide coupon to pharmacy over the phone if done in time while CM available before DC. Primary nurse made aware. Per MD documentation, plan for patient to have a US done today and if negative can DC home. CM to continue to follow for any additional home going needs, such as HHC botany technician for Medication reconciliation/compliance vs. CCN Referral for same- as per noted documentation patient had not taken 3 days of ASA BIT SHAVER. KELLY Cobb
[2019-05-03] MEDS: oxyCODONE 5 MG Tablet 7.5 MG PO (10:41)
[2019-05-03] MEDS: Metoprolol(XL)Succ 50 MG Tablet PO (10:42)
[2019-05-03] MEDS: TICAGRELOR 90 MG TABLET PO (10:42)
[2019-05-03] MEDS: Acetaminophen 325 MG Tablet PO (10:42)
[2019-05-03] MEDS: Citalopram 20 MG Tablet PO (10:42)
[2019-05-03] MEDS: Pantoprazole Sodium 20 MG Tablet PO (10:42)
[2019-05-03] MEDS: Aspirin E.C. 81 MG Tablet PO (10:42)
[2019-05-03] MEDS: Famotidine 20 MG Tablet PO (10:43)
[2019-05-03] MEDS: Losartan Potassium 100 MG Tablet PO (11:36)
[2019-05-03] MEDS: amLODIPine 10 MG Tablet PO (11:36)
--- NOTE | 2019-05-03 11:47 | PCM.DC ---
- Discharge Diagnoses Current Active Problems: Current Active and Chronic Problems (Last Reviewed 05/01/19 @ 16:29 by Starr Sanchez DO) Unstable angina (Acute) HLD (hyperlipidemia) (Chronic) Obesity (BMI 30.0-34.9) (Chronic) GERD (gastroesophageal reflux disease) (Chronic) Tobacco dependence in remission (Chronic) Quit at 61 years of age. [id number]-hofn smoking history. Fibromyalgia (Chronic) Osteoarthritis (Chronic) Chronic low back pain (Chronic) Elevated troponin (Acute) Chronic narcotic use (Chronic) Chest pain (Acute) You will use the following diet at home:: No restrictions Your food should be the consistency of: Regular Your liquids should be the consistency of: Regular/Thin Discharge Activity: Return to Normal Activity Weight Bearing Status: Full weight bearing Allergies/Adverse Reactions: Allergies isometheptene [From Midrin] Allergy (Verified 05/01/19 14:55) shaking Sulfa (Sulfonamide Antibiotics) Allergy (Verified 05/01/19 14:55) throat Swelling codeine Adverse Reaction (Verified 05/01/19 14:55) Nausea/Vom/Diarrhea dichloralphenazone [From Midrin] Adverse Reaction (Verified 05/01/19 14:55) shaking ibuprofen Adverse Reaction (Verified 05/01/19 14:55) stomachaches topiramate [From Topamax] Adverse Reaction (Verified 05/01/19 14:55) I felt crazy Medications to take at Discharge Citalopram [Celexa] 20 mg PO QHS 02/18/16 Oxycodone HCl/Acetaminophen [Oxycodon-Acetaminophen 7.5-325] 1 tab PO 4X/DAY 01/14/18 methocarbamol 500 mg tablet 500 mg PO TID PRN PRN 09/27/18 Gabapentin [Neurontin] 300 mg PO TID 04/08/19 Losartan Potassium 100 mg PO DAILY 04/08/19 Amlodipine [Norvasc] 10 mg PO DAILY #30 tab 04/12/19 Aspirin E.C. [Ecotrin] 81 mg PO DAILY@0800 #30 tab 04/12/19 Metoprolol(XL)Succ [Toprol Xl (Beta Hermelindo)] 50 mg PO DAILY #30 tab 04/12/19 Atorvastatin Calcium [Lipitor] 20 mg PO QHS #30 tab 05/03/19 Nitroglycerin 0.4 mg SL PRN PRN #25 tab.subl 05/03/19 Pantoprazole Sodium [Protonix] 20 mg PO DAILY #30 tab 05/03/19 Ticagrelor [Brilinta] 90 mg PO BID #60 tab 05/03/19 The following prescriptions were given: Ticagrelor [Brilinta] 90 mg PO BID #60 tab Transmission Status: Pending to [facility] Atorvastatin Calcium [Lipitor] 20 mg PO QHS #30 tab Transmission Status: Pending to [facility] Nitroglycerin 0.4 mg SL PRN PRN #25 tab.subl PRN Reason: Cardiac/Chest Pain Transmission Status: Pending to [facility] Pantoprazole Sodium [Protonix] 20 mg PO DAILY #30 tab Transmission Status: Pending to [facility] Primary Care Physician: Stacie Rivers NP-C [Primary Care Provider] - Test Results: Test results from this visit will be discussed in further detail at your follow-up appointment, if applicable. Please Follow Up With: Dez Smith MD When: as directed-call office if they dont call you this week
--- NOTE | 2019-05-05 17:56 | PCM.DC.SUM ---
Discharge Date and Diagnosis Date of Admission: 05/01/19 Date of Discharge: 05/03/19 - Primary Discharge Diagnosis #1 non-STEMI #2 unstable angina #3 essential hypertension #4 hyperlipidemia #5 noncompliance with medical regimen - Secondary Discharge Diagnosis Chronic Problems (Last Reviewed 05/01/19 @ 16:29 by Starr Sanchez DO) HLD (hyperlipidemia) (Chronic) Obesity (BMI 30.0-34.9) (Chronic) GERD (gastroesophageal reflux disease) (Chronic) Tobacco dependence in remission (Chronic) Quit at 61 years of age. [id number] smoking history. Fibromyalgia (Chronic) Osteoarthritis (Chronic) Chronic low back pain (Chronic) Chronic narcotic use (Chronic) Atherosclerosis of coronary artery of [place] 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) H/O coronary artery bypass surgery (Chronic 2006) CABG x 3 CHIU-LAD, Sequential SVG-OM1, OM2 2006 History of coronary artery stent placement (Chronic 05/02/19) PCI-MAEGAN-MID LCx with a 2.5 x 38 mm Promus Synergy 04/11/19 Single vessel CAD of the mid LCX with sub-acute in stent thrombosis from medical non compliance of DAPT by patient. Widely patent SVG to DIAG/OM Successful PCI with thrombectomy of mid LCX recently placed stent, followed by PTCA of mid LCX stent utilizing a 3.0 x 12 NC balloon; 50%-->0%, no dissection or perforation 05/02/2019 Essential (primary) hypertension (Chronic) Hospital Course and Treatment Operations: None Procedures: Cardiac catheterization - With balloon angioplasty and thrombectomy Summary of Care Provided: The patient is a 74 year old F who was seen in the emergency room at [facility] with chief complaint of chest pain, labs were obtained which showed elevated troponin, EKG was normal, cardiology was contacted and patient was placed in observation status on PCU and enzymes were cycled. Enzymes remained elevated and she was seen by cardiology who performed a cardiac catheterization with an angioplasty and thrombectomy of the mid circumflex artery. Patient admitted that she may have not been taking her home medications for her coronary artery disease as directed. On 05/03/2019, patient was seen and examined: On examination she appeared in good health and spirits. Vital signs as documented. Skin warm and dry and without overt rashes. Neck without JVD. Lungs clear. Heart exam notable for regular rhythm, normal sounds and absence of murmurs, rubs or gallops. Abdomen unremarkable and without evidence of organomegaly, masses, or abdominal aortic enlargement. Extremities nonedematous. Neuro: Cranial nerves II through XII are grossly intact, no focal motor deficits were noted, sensation to light touch and pinprick is intact. Psych: Patient is alert and oriented x3, she does not appear anxious or depressed On , patient was seen and examined and felt to be in stable condition for discharge home. - Physical Exam Vitals/I&O's: Vital Signs Temp Pulse Resp BP Pulse Ox 98.1 F 66 16 127/82 H 96 05/03/19 12:00 05/03/19 12:00 05/03/19 12:00 05/03/19 12:00 05/03/19 12:00 Oxygen Flow Rate (L/min) 1 Oxygen Delivery Method Room Air Weight: 82.1 kg Body Mass Index (BMI) 31.0 Intake and Output for Last 24 Hours 05/03/19 05/04/19 05/05/19 23:59 23:59 23:59 Intake Total 620 / 620 Output Total 750 / 750 Balance -130 / -130 Discharge Activity: Return to Normal Activity Weight Bearing Status: Full weight bearing Home Medications: Medications to take at Discharge Citalopram [Celexa] 20 mg PO QHS 02/18/16 Oxycodone HCl/Acetaminophen [Oxycodon-Acetaminophen 7.5-325] 1 tab PO 4X/DAY 01/14/18 methocarbamol 500 mg tablet 500 mg PO TID PRN PRN 09/27/18 Gabapentin [Neurontin] 300 mg PO TID 04/08/19 Losartan Potassium 100 mg PO DAILY 04/08/19 Amlodipine [Norvasc] 10 mg PO DAILY #30 tab 04/12/19 Aspirin E.C. [Ecotrin] 81 mg PO DAILY@0800 #30 tab 04/12/19 Metoprolol(XL)Succ [Toprol Xl (Beta Hermelindo)] 50 mg PO DAILY #30 tab 04/12/19 Atorvastatin Calcium [Lipitor] 20 mg PO QHS #30 tab 05/03/19 Nitroglycerin 0.4 mg SL PRN PRN #25 tab.subl 05/03/19 Pantoprazole Sodium [Protonix] 20 mg PO DAILY #30 tab 05/03/19 Ticagrelor [Brilinta] 90 mg PO BID #60 tab 05/03/19 Following Prescrptions Were Given to Patient: Ticagrelor [Brilinta] 90 mg PO BID #60 tab Transmission Status: Received by [facility] Atorvastatin Calcium [Lipitor] 20 mg PO QHS #30 tab Transmission Status: Received by [facility] Nitroglycerin 0.4 mg SL PRN PRN #25 tab.subl PRN Reason: Cardiac/Chest Pain Transmission Status: Received by [facility] Pantoprazole Sodium [Protonix] 20 mg PO DAILY #30 tab Transmission Status: Received by [facility] Primary Care Physician: Stacie Rivers NP-C [Primary Care Provider] - Please Follow Up With: Dez Smith MD When: as directed-call office if they dont call you this week Disposition: Home Minutes spent on discharge:: 30 Patient Condition:: Stable Medical Necessity - Tobacco Use Smoking Status: Former smoker Tobacco Use: Non-smoker Meaningful Use Info Meaningful Use Diagnoses (Choose all that apply): AMI - AMI Aspirin given w/in 24hrs of arrival?: Yes ASA at discharge?: Yes Statins at discharge?: Yes Justo/ARB at discharge?: Yes Beta Hermelindo at discharge?: Yes Done w/ Acute [place] measure.: Yes Documented LVEF (%): 65 Code Visit OBSV E&M: 90247 Observation care discharge
== END 2019-05-03 13:55 | disposition home or self-care (01) ==
LOC: ED 16:22 → PCU 16:58 → ICU 05-02 09:55
PROVIDERS: Internal Medicine Cardiovascular Disease; Admitting Provider Internal Medicine; Emergency Provider Emergency Medicine; Family Provider Nurse Practitioner Adult Health; PCP Nurse Practitioner Adult Health; Referring Provider Internal Medicine; Visit Provider Internal Medicine
DX: I21.4 Non-ST elevation (NSTEMI) myocardial infarction (principal); E78.5 Hyperlipidemia, unspecified; I10 Essential (primary) hypertension; I25.2 Old myocardial infarction; K21.9 Gastro-esophageal reflux disease without esophagitis; I25.110 Atherosclerotic heart disease of native coronary artery with unstable angina pectoris; M79.7 Fibromyalgia; E66.9 Obesity, unspecified; M19.90 Unspecified osteoarthritis, unspecified site; G89.29 Other chronic pain; G62.9 Polyneuropathy, unspecified; Z95.1 Presence of aortocoronary bypass graft; Z79.02 Long term (current) use of antithrombotics/antiplatelets; Z95.5 Presence of coronary angioplasty implant and graft; Z91.14 Patient's other noncompliance with medication regimen; Z87.891 Personal history of nicotine dependence; Z79.899 Other long term (current) drug therapy; Z79.82 Long term (current) use of aspirin; Z68.31 Body mass index [BMI] 31.0-31.9, adult; Z71.3 Dietary counseling and surveillance; R09.89 Other specified symptoms and signs involving the circulatory and respiratory systems
CPT/HCPCS: 71045; 80048; 80053; 83735; 84484; 85025; 85027; 85347; 85652; 85730; 92920; 93005; 93459; 93926; 96361; 96374; 96376; 99152; 99153; 99218; 99285; C1760; J7030; A4216; C1725; C1757; C1769; C1887; C1894; G0378; Q9967

== ENCOUNTER → 2019-06-14 09:43 | Outpatient (CLI) | payer MEDICARE, SELFPAY ==
[2019-04-11 11:26] VITALS: BMI 30.7
[2019-05-01 17:16] VITALS: BMI 31.0
[2019-06-06 14:07] VITALS: BMI 31.8
--- NOTE | 2019-06-14 10:14 | PCM.CR.HP2 ---
CR - History & Physical - General Arrival date:: 06/14/19 Arrival time:: 10:00 Date of Referral:: 04/11/19 Date of CR Evaluation:: 06/14/19 Referring Physician: DR. CHAVEZ Primary Diagnosis: PCI WITH STENTING - History of Present Cardiac Event Onset Date: Enter Onset Date of cardiac illnesses in Comment field below Current stable Angina Pectoris:: No Acute Myocardial Infarction within 12 months:: Yes Coronary Artery Bypass Graft:: Yes - X3 IN 2006 Heart valve replacement or repair:: No PTCA or coronary stenting:: Yes - STENT X1 Heart or Heart-Lung Transplant:: No Heart Failure EF <35%:: No Type of Symptoms:: MUSCLE SPASMS LIKE Interventions with present event:: STENT X1 Were there any complications?: NONE WITH PRESENT, HOWEVER, STENT PLACED IN NOV CLOSED OFF - Medications Home Medications: Ambulatory Orders Medication Instructions Recorded Citalopram [Celexa] 20 mg PO QHS 02/18/16 Oxycodone HCl/Acetaminophen 1 tab PO 4X/DAY 01/14/18 [Oxycodon-Acetaminophen 7.5-325] methocarbamol 500 mg tablet 500 mg PO TID PRN PRN 09/27/18 Gabapentin [Neurontin] 300 mg PO TID 04/08/19 Aspirin E.C. [Ecotrin] 81 mg PO DAILY@0800 #30 tab 04/12/19 Nitroglycerin 0.4 mg SL PRN PRN #25 tab.subl 05/03/19 losartan 100 mg tablet 100 mg PO DAILY #90 tab 05/10/19 pantoprazole 20 mg tablet,delayed 20 mg PO DAILY #90 tab 05/10/19 release amlodipine 10 mg tablet 5 mg PO DAILY #90 tab 05/24/19 metoprolol succinate 50 mg 25 mg PO DAILY #90 tab 05/31/19 tablet,extended release 24 hr ezetimibe 10 mg tablet 10 mg PO DAILY #30 tab 06/06/19 ticagrelor 90 mg tablet 90 mg PO BID #180 tab 06/06/19 - Allergies Allergies/Adverse Reactions: Allergies isometheptene [From Midrin] Allergy (Verified 06/06/19 14:07) shaking Sulfa (Sulfonamide Antibiotics) Allergy (Verified 06/06/19 14:07) throat Swelling ezetimibe [From Zetia] Adverse Reaction (Severe, Verified 06/06/19 14:42) Pain in joints Kgxptsh-Fvy-Vxu Reductase Inhibitor Adverse Reaction (Severe, Verified 06/06/19 14:07) myalgias codeine Adverse Reaction (Verified 06/06/19 14:07) Nausea/Vom/Diarrhea dichloralphenazone [From Midrin] Adverse Reaction (Verified 06/06/19 14:07) shaking fish oil Adverse Reaction (Verified 06/06/19 14:44) Other makes her crazy ibuprofen Adverse Reaction (Verified 06/06/19 14:07) stomachaches topiramate [From Topamax] Adverse Reaction (Verified 06/06/19 14:07) I felt crazy - Sleep Disorder Evaluation Hx of Sleep Apnea: No Do you snore loudly (louder than talking or can be heard through closed doors)?: No Do you often feel tired/ fatigued/ sleepy during daytime?: Yes - FEELS ITS FROM HER MEDICATIONS Has anyone observed you stop breathing during sleep?: No History of Hypertension (for STOP score): Yes STOP Results: Positive Advanced Directives - Advanced Directives Power 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: No Living Will: No Advance Directives Information Provided: Yes - INFORMED OF AVAIL IN MED RECORDS DEPARTMENT Advance Directives on File: No DNR Order?:: No Past Medical History - Past Medical Illness Medical History: Past Medical History (Last Reviewed 06/06/19 @ 14:57 by TYSON Mcgowan) Atherosclerosis of coronary artery of [place] 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) I25.10 History of non-ST elevation myocardial infarction (NSTEMI) (Resolved) Onset Date: 05/01/19 I25.2 Essential (primary) hypertension (Chronic) I10 HLD (hyperlipidemia) (Chronic) E78.5 Arthritis M19.90 Chronic low back pain M54.5, G89.29 Chronic low back pain M54.5, G89.29 Chronic narcotic use F11.90 Fibromyalgia M79.7 Fibromyalgia M79.7 GERD (gastroesophageal reflux disease) K21.9 GERD (gastroesophageal reflux disease) K21.9 Leg cramps R25.2 Neuropathy G62.9 Neuropathy G62.9 Obesity (BMI 30.0-34.9) E66.9 Osteoarthritis M19.90 Plantar fasciitis M72.2 Stomach ulcer K25.9 Tobacco dependence in remission F17.201 quit smoking at 61 YOA Tobacco dependence in remission F17.201 Quit at 61 years of age. [id number] smoking history. Brain tumor D49.6 Unstable angina (Resolved) I20.0 - Past Surgical History Surgical History: Past Surgical History (Last Reviewed 06/06/19 @ 14:57 by TYSON Mcgowan) History of coronary artery stent placement (Chronic) Onset Date: 05/02/19 Z95.5 PCI-MAEGAN-MID LCx with a 2.5 x 38 mm Promus Synergy 04/11/19; PCI with thrombectomy and POBA of ISR-mid LCx Stent 05/02/2019 H/O coronary artery bypass surgery (Chronic) Onset Date: 2006 Z95.1 CABG x 3 CHIU-LAD, Sequential SVG-OM1, OM2 2006 History of laparoscopic cholecystectomy Z90.49 H/O laminectomy Z98.890 History of bladder surgery Z98.890 bladder sling History of craniotomy Z98.890 History of fusion of cervical spine Z98.1 History of hysterectomy Z90.710 Surgical History: coronary bypass surgery - 2006, total knee arthroplasty - left - Family History Summary Family History: Family History (Last Reviewed 06/06/19 @ 14:57 by TYSON Mcgowan) Grandmother Hypertension Father CVA (cerebral vascular accident) Heart disease Mother Hypertension Cancer Brother Cancer Sister Hypertension Social History - Smoking History Smoking Status: Former smoker Years Smokin Packs Smoked per Day: 1 - Alcohol Use Alcohol Usage: No - Substance Abuse Hx Substance Use: No - 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 Left click = Reports ([place]) Review of Present Symptoms: Reports: Shortness of Breath with Exertion, Dizziness/Lightheadedness - OCCASIONALLY FEELS 'TIPSY', Fatigue, Appetite - Normal. Denies: Shortness of Breath at Rest, PVD, Operative Discomfort, Angina, Wound Healing, Heart Arrhythmia/Irregularities, Sleep - Normal - Pain Is Patient Pain Free?: No Pain Location: upper extremity - PT IS IN PAIN MNGMT FOR UPPER LT ARM PAIN, STARTED ON PREDNISONE Pain Level: 5/10 Risk Factor Assessment - Chief Complaint Chief Complaint: CURRENT PCI PT HERE FOR INITIAL CR EVALUATION - Vital Signs Temperature: 98.6 F Respiratory Rate: 16 Pulse Ox: 95 Blood Pressure: 138/80 Nailbeds:: PINK - Pulse Pulse Rate: 52 Pulse Rhythm: Regular - Hypertension How long have you been treated?: SEVERAL YEARS On medication(s)?: YES Blood Pressure Sitting - Left Arm: 138/80 - Stress Stress: Home/Family - FAMILY HEALTH ISSUES MOSTLY - Blood Cholesterol/Lipids Total Cholesterol (mg/dL) Goal = less than 200 mg/dL: 150 HDL Cholesterol (mg/dL) Goal = less than 40 mg/dL: 43 LDL Cholesterol (mg/dL) Goal = less than 70 mg/dL: 158 Triglycerides (mg/dL) Goal = less than 150 mg/dL: 91 - Diabetes Nutrition Referral for Diabetes: No - Obesity Height: 5 ft 4 in Weight:: 181 lb Weight in Pounds: 181.0 lbs Weight Source: Stated by Patient Body Mass Index (BMI): 31.0 Nutritional Referral for Obesity: No - Physical Inactivity Physical Inactivity: None - Risk Stratification Risk Guidelines: Lowest Risk: Risk Factor for Smoking, Risk Factor for Diabetes, Moderate Risk: Risk Factor for Dyslipidemia, Risk Factor for Obesity, Risk Factor for Hypertension, Risk Factor for Sedentary Lifestyle, Risk Factor for Depression - PT TAKING MEDICATION SHE STATES - For Smoking Smoking Risk Guidelines: Smoking Low Risk: None or quit greater than 6 months ago. Smoking Moderate Risk: Smoker or quit 6 months or less ago. Smoking High Risk: Smoker - For Dyslipidemia Dyslipidemia Risk Guidelines: Low Risk: Moderate Risk: High Risk: 15-25% fat 25.1-29% fat >/= 30% fat. <7% sat fat 7-9% sat fat >9% sat fat. <150 mg chol 150-299 mg chol >/= 300 mg chol. LDL <100 LDL 100-129 LDL >/= 130. Chol/HDL ratio <5.0 Chol/HDL ratio 5.0-6.0 Chol/HDL ratio >6.0. Triglycerides <100 Triglycerides 100-149 Triglycerides >/= 150 - For Diabetes Mellitus Diabetes Risk Guidelines: Diabetes Low Risk: HgA1c <6.5% and/or FBG <120. Diabetes Moderate Risk: HgA1c 6.6-7.9% and/or FBG 120-180. Diabetes High Risk: HgA1c >/= 8% and/or FBG >180 - For Obesity/Overweight Obesity/Overweight Risk Guidelines: Obesity Low Risk: BMI <25.0. Obesity Moderate Risk: BMI 25-29.9. Obesity High Risk: BMI >/= 30.0 - For Hypertension Hypertension Risk Guidelines: Hypertension Low Risk: Systolic <120 and Diastolic <80. Hypertension Moderate Risk: Systolic 120-139 and Diastolic 80-89. Hypertension High Risk: Systolic >/= 140 and Diastolic >/= 90 - For Sedentary Lifestyle Sedentary Lifestyle Risk Guidelines: Sedentary Lifestyle Low Risk: >/= 1,500 kcal/week. Sedentary Lifestyle Moderate Risk: 700-1,499 kcal/week. Sedentary Lifestyle High Risk: < 700 kcal/week - For Depression Depression Risk Guidelines: Depression Low Risk: Not clinically depressed. Depression Moderate Risk: Mildly depressed. Depression High Risk: Clinically depressed - Family History Family History: Family History (Last Reviewed 06/06/19 @ 14:57 by TYSON Mcgowan) Grandmother Hypertension Father CVA (cerebral vascular accident) Heart disease Mother Hypertension Cancer Brother Cancer Sister Hypertension Motivation - Motivation to Participate On a scale of 1 to 10, how prepared are you to commit to attending program?: 10 What do you see as barriers to successfully being able to complete the program?: PHYSICAL LIMITATION, SOME DAYS I CANT DO ANYTHING What do you see as the benefits of succesfully completing the program? In other words, what do you hope to get out of participating in the program?: IMPROVED ENERGY AND STRENGHT Are there issues you are dealing with that will interfere with completing the program?: PHYSICAL ACHES AND PAINS Do you have a spouse or signficant other, family or friends who will help support you to complete the program?: SPOUSE
--- NOTE | 2019-06-14 10:15 | CR.ITP_ITS ---
Diagnosis - General Information Secondary Diagnosis: PCI WITH STENT Personal Learning Style:: Audio/Visual, Demonstration, Group, Individual Preference, Written Barriers to Learning: No Barriers Stage of change r/t lifestyle modifications:: Action Gave educational material for:: Treating Heart Disease, Emotions & Heart Disease, Stress Management & Relaxation, Sleep Disorders & Heart Disease, How The Heart Works, What it means to have Heart Disease, How Coronary Artery Disease is Diagnosed, Heart Procedures, What Heart Medications Do, Risk Factors & Modifications, Living an Active Life, Nutrition - Education/Goals Individual Counseling: Initial Assessment: Abnormal Cholesterol Levels, High Blood Pressure, Overweight/Obesity, Hypertension, Low HDL <40/Males or <50/Females, Sedentary Lifestyle, Stress Cardiac Rehabilitation Goals: 1. Maintain the individual as the primary focus of care. 2. To improve the patient's quality of life. 3. Identification of cardiac risk factors and provide cardiac risk factor management. 4. Enhance the psychosocial status of the patient. 5. Reconditioning enough to allow the patient to resume customary activities. 6. Control symptoms of cardiac disease Personal Goals: Initial Assessment: Improve management of stress and emotions, Improve energy level, Get back to work, or to resume activities faster, Improve knowledge of cardiac disease, Improve muscle strength and endurance, Improve diet and eating habits (eat healthier), Control risk factors (learn risk factor modification) Scale for measuring improvement of personal goals: Enter appropriate number in Comments. 2 = Unchanged. 3 = Slightly Better. 4 = Moderate Improvement. 5 = Met my Goal - Diagnosis & Disease Process Outcomes/Goals: Pt IDs own risk factors & lifestyle modifications by Session 10, Verbalizes symptoms of angina & response by session 3., Pt independently manages Comment:: PT JUST STARTING CR Plan/Interventions: Assist Pt to ID & engage in lifestyle modification to reduce CVD risk, Instruct on individual risk factors, Review symptoms of angina & emergency actions, Review secondary diagnosis & identify educational needs. - Safety Referral to Physical Therapy: No Referral to [facility] Case Management: No Fall Risk Assessed:: Yes - PT USES CANE PRN IF FEELS 'TIPSY' Assistive Devices:: Cane - USES PRN Exercise - Initial Assessment - Visit Date of Eval: 06/14/19 Mets: Pre-: >5 METS for 30 minutes by discharge - Physician Prescribed Exercise Modalities: Treadmill, Biodyne, Rower, Airdyne, NuStep, SciFit Frequency: 3x/week for 12 weeks [36 sessions] Intensity: 60-80% of age predicted maximum heart rate reserve Target Heart Rate:: 96-125 Resting Blood Pressure: 138/80 EKG Type: NSR Current Physical Activity or Exercising minutes: CURRENTLY PT FEELS VERY LIMITED DUE TO PHYSICAL LIMITATIONS, ACHES AND PAIN - Outcomes & Goals Goals:: Verbalizes understanding of THR, RPE & goal METS by session 6, Documents in home exercise log/reports 30 min aerobic 5 day/wk by DC, Demonstrates accurate pulse taking by DC - Intervention & Plan Exercise Program Goals: Instruct on personal THR & RPE, Instruct on MET level & personal MET goal, Show patient to take own pulse /validate performance until accurate, Instruct on home exercise - Physical Activity Home Exercise Physical Activity - Home Exercise: Safe Exercise, Warm-up, Self-monitoring, Cool-Down, Home Exercise > 30 min Daily, Sitting Time <3 hours/daily - Outcomes & Goals Outcomes/Goals: Demonstrates correct Warm-up/exercise Cool-Down (S3) if = 2.5 METs, Verbalizes symptoms of exercise intolerance by Session 3 (S3), Demonstrate safe equipment use (S3) & follows exercise prescrition (6) - Intervention & Plan Plan/Intervention: Instruct warm-up & cool-down if exercising at > 2 METs, Instruct on symptoms of exercise intolerance & actions to take - PT JUST STARTING CR PROGRAM, WILL CONT TO EDUCATE AND REINFORCE SHE IS IN THE PROGRAM, Instruct & monitor on saf, Assess intial functional capacity & safety risk Nutrition - Initial Assessment - Program Goals Nutrition Program Goals: LDL <100 optimal. 100 - 129 Near optimal. 130 - 159 Borderline High. 160 - 189 High. Total Cholesterol <200 desirable. 200 - 239 Borderline High. >/= 240 High. HDL < 40 Low >/=60 High. Triglycerides <150 desirable. <199 optimal. VlDL 5 - 40. HgbA1C <7%. BMI <25 Patient has diagnosis of Hyperlipidemia (ICD E78)?: Yes - Visit Date of Assessment:: 06/14/19 - Cholesterol/Lipids Triglycerides (mg/dL): 91 Total Cholesterol (mg/dL): 150 LDL Cholesterol (mg/dL): 158 HDL Cholesterol (mg/dL): 43 Lipid Medication: ZETIA Determine presence & major risk factors that modify LDL goal: Hypertension or hypertensive medication, Low HDL cholesterol <40 mg/dL* Outcomes/Goals: Pt IDs own risk factors & lifestyle modifications by Session 10, Verbalizes symptoms of angina & response by session 3., Pt independently manages, Other Additional Outcomes/Goals: - WILL ATTEND CR CLASSES Intervention/Plan: Instruct on cholesterol Referral to dietitian:: No - PT DECLINES WANTING A DIETITIAN REFERRAL - Diabetes (Other Core Measures) Diabetes Type: Not Applicable - Weight Mgt (Other Care) Height: 5 ft 4 in Weight:: 181 lb BMI: 31.0 Diagnosis Overweight/Obesity BMI> 30% ICD-10 E66: Yes Outcomes/Goals: Pt sets, maintains & shows weight loss goal & trend during rehab, Other additional outcomes/goals - PT NEW START TO CR PROGRAM Intervention/Plan: Instruct on ideal BMI & set weight loss goal w/patient, Assist pt to ID & incorporate diet changes for weight loss by S9 - THROUGH CR CLASSES, PT DECLINES DIATITIAN REFERRAL, Refer to Structured Weight Loss program as appropriate, Encourage goal of using 250-300dcal per session for weight loss - Healthy Eating Habits Will attend diet classes:: Yes Outcomes/Goals:: Consume diet rich in vegs,fruits,whole grain/high fiber,fish,lean meat, Limit sat/trans fats,cholesterol & added salts & sugars, Other additional outcome/goals: Intervention/Plan:: Assess current eating habits, Other Additional plan/interventions - Education Gave educational materials for:: Signs & symptoms of hypoglycemia, Signs & symptoms of hyperglycemia, Relate diabetes to coronary artery disease, Healthy eating - INSTRUCTED ON THE CR EDUCATION MATERIAL AVAIL ON LINE AND HOW TO ACCESS Nutrition - 90-Day Assessment - Program Goals Nutrition Program Goals: LDL <100 optimal. 100 - 129 Near optimal. 130 - 159 Borderline High. 160 - 189 High. Total Cholesterol <200 desirable. 200 - 239 Borderline High. >/= 240 High. HDL < 40 Low >/=60 High. Triglycerides <150 desirable. <199 optimal. VlDL 5 - 40. HgbA1C <7%. BMI <25 - Diabetes (Other Core Measures) 30-day Reassessments:: Not Met - PT S Reassessment Notes & Comments:: PT STARTING CR Medical - Initial Assessment - Visit Date of Eval: 06/14/19 - Medication Compliance Preventative Medication(s):: Aspirin, Ticagrelor/P2Y12 inhibitor, Statin/lipid, Beta kedar H/O mental health issues: depression, anxiety, or addiction?: Yes Doesn?t believe in the benefits of treatment?: No - PT BELIEVES IN NEED FOR MEDICATION Believes medications are unnecessary or harmful?: No Has a concern about medication side effects?: No Expresses concern over the cost of medications?: No Outcomes/Goals: Verbalizes medications,desired effect & common side effects @ DC, Pt self-reports following medication regimen, Keeps card in wallet w/medications listed by DC, Other additional outcome/goals: - NEW START TO CR Interventions/plans: Instruct on medication effects & side effects, Review medication list w/patient every two weeks, Instruct importance of taking meds as ordered & assist problem solving, Other additional - WILL INSTRUCT WHILE IN CR PROGRAM - Tobacco Use Tobacco Use: Non-smoker How long ago did you quit using tobacco products?: Greater than or equal to 6 months ago Years Smokin Do you use smokeless tobacco?: No - Hypertension Hypertension Diagnosis:: Hypertension ICD-10 I10 Resting Blood Pressure:: 138/80 Citizen [place] [employer] Hypertension Guidelines: Citizen [place] [employer] Hypertension Guidelines. Normal BP Less than 120/80. Elevated BP 120/80. Hypertension Stage 1: BP 130-139/80-89. Hypertesnion Stage 2: BP 140 or higher/90 or higher. Hypertension Crisis: BP higher than 180/120 Outcomes/Goals: Able to verbalize/achieve optimal blood pressure <130/80, Incorporates diet changes & exercise for blood pressure control by DC, Other additional outcomes/goals Interventions/plan: Instruct on optimal blood pressure, hypertension & medications, Instruct on effects of sodium, alcohol, stress, exercise &hypertension - Tobacco Cessation Referral Smoking Cessation Referral:: No Individual Education/Counseling:: No Education Schedule Given:: Yes Medical - Final Assessment - Medication Compliance 30-day Reassessments:: Not Met Reassessment Notes & Comments:: PT STARTING CR - Hypertension Citizen [place] [employer] Hypertension Guidelines: Citizen [place] [employer] Hypertension Guidelines. Normal BP Less than 120/80. Elevated BP 120/80. Hypertension Stage 1: BP 130-139/80-89. Hypertesnion Stage 2: BP 140 or higher/90 or higher. Hypertension Crisis: BP higher than 180/120 Psychosocial - Initial Assess - VIsit Date of Eval: 06/14/19 History of previous Mental disease:: Yes - DEPRESSION History of Emotional Disorders: Depression - PT CURRETLY ON MEDS Self-reported stressors: Family - Target Goals Target Goals: Assess presence or absence of depression. Using a valid screening tool, maximizes coping skills. Positive support system - Psychosocial Test Tool Used:: Cheryl Bruno QOL Cardiac, PHQ-9 Questionnaire phq-9 Severity: Severity. 1-4 Minimal Depression. 5-9 Mild Depression. 10-14 Moderate Depression. 15-19 Moderately Sever Depression. 20-27 Severe Depression. Rule: See PHQ-9 Score: 16 Total Score:: 16 - Referral to Behavioral Health PS - Interventions: Yes Referral to Behavioral Health if PHQ-9 score >9:, Yes Referral to Physician if PHQ-9 if score is 5-9: - PT CURRENTLY TREATED, No Referral to [facility], No Attend Stress Management Classes - CR CLASSES - Outcomes/Goals: See list Psychosocial Outcomes/Goals:: ID's personal stressors & 2 strategies to manage stress by discharge, Other Additional outcome/goals: - Intervention/Plan: See List Interventions/Plan:: Assess stressors,coping strategies & signs of derpression on admission, Instruct/assist pt to develop coping & personal stress Mgt stra tegies, Refer to Behavioral Health if appropriate, Refer to Physician if appropriate, Instruct patient to recognize signs & symptoms of depression, Instruct patient to recog, Other additional plan/intervention - 30-day Reassessments: 30 day Reassessments:: Not Met - PT JUST STARTING CR Reassessment Notes & Comments:: PT STARTING CR Patient Health Questionnaire Initial Assessment 1. Little interest or pleasure in doing things: Nearly every day 2. Feeling down, depressed, or hopeless: More than half the days 3. Trouble falling or staying asleep, or sleeping too much: Nearly every day 4. Feeling tired or having little energy: More than half the days 5. Poor appetite or overeating: More than half the days 6. Feeling bad about yourself -- or that you are a failure or have let yourself or your family down: More than half the days 7. Trouble concentrating on things, such as reading the newspaper or watching television: More than half the days 8. Moving or speaking so slowly that other people could have noticed. Or the opposite - being so fidgety or restless that you have been moving around a lot more than usual: Not at all 9. Thoughts that you would be better off , or of hurting yourself in some way: Not at all How difficult have these problems made it for you to do your work, take care of things at home, or get along with other people?: Somewhat difficult Total Score: 16 ASHLEY-Q SV Test - Statements CAD is a disease of the arteries in the heart: False Examples of risk factors for heart disease: True Angina is chest pain or discomfort: True The benefits of resistance training include: I Don't Know Eating more meat and dairy products: False Anti-platelet medications such as aspirin are important: True The only effective way to manage stress: True An exercise warm-up slowly increases heart rate: True Prepared, processed foods usually have high sodium: True Depression is common after a heart attack: True The statin medications lower cholesterol: True To control blood pressure, lower the amount of sodium: I Don't Know If someone gets chest discomfort during walking: False Transfats are partially hydrogenated vegetable oils: I Don't Know Sleep apnea that is not treated increases the risk: False To control cholesterol, one should become a vegetarian: False Someone knows if he/she is exercising at the right level: True Diabetes cannot be prevented with exercise & health eating: True Stress is a large risk for heart attack: True A diet that can help lower blood pressure is rich in: True - Total Score Total Correct Responses: 15 Self-Efficacy Initial Assessment We would like to know how confident you are in doing certain activities. Please select your confidence level for:: Select your confidence level for the following using the scale 1-10 where 1 is not at all confident and 10 is totally confident. Your score is the average of all 6 responses. Fatigue: How confident are you that you can keep the fatigue caused by your disease from interfering with the things you want to do? Select Number: 7 Physical Discomfort or Pain: How confident are you that you can keep the physical discomfort or pain of your disease from interfering with the things you want to do? Select Number: 6 Emotional Distress: How confident are you that you can keep the emotional distress caused by your disease from interfering with the things you want to do? Select Number: 7 Other Symptoms or Health Problems: How confident are you that you can keep other symptoms or health problems from interfering with the things you want to do? Select Number: 6 Different Tasks and Activities: How confident are you that you can do the different tasks and activities needed to manage your health condition so as to reduce your need to see a doctor? Select Number: 7 Medication: How confident are you that you can do things other than just taking medication to reduce how much your illness affects your everyday life? Select Number: 5 Total Score:: 6 Nutrition Survey - Nutrition Survey Instructions Scoring Instructions: Scoring is as follows: Yes = 1 points. No = 0 point. Patient score that is >/=12 is considered to be at potential nutritional risk and could benefit from a referral to a registered dietitian. - Nutrition Survey Initial Have you lost >10 lbs over the past 2 months without trying?: No Are you following a special diet at home for diabetes, low fat, or low salt?: No Are you interested in meeting with a dietitian for help understanding your diet?: No Do you eat less than 3 meals a day?: Yes Do you eat fatty meats (reilly, sausage, ribs, etc), fried foods, desserts, large amounts of salad dressings, margarine, butter, or cheese most days?: No Do you have food allergies? [Enter types in comment field]: No Do you eat in restaurants more than 3 times a week?: No Do you season food with salt, seasoning salt, or garlic salt?: Yes Do you used canned, boxed, frozen meals, or soups, seasoning packets?: Yes Total Score:: 3
[2019-06-14 10:40] VITALS: BP 138/80; PULSE 52; RESP 16; TEMP 37; O2SAT 95; BMI 31.0
[2019-06-14 11:23] VITALS: BP 138/80; BMI 31.0
== END ==
PROVIDERS: Family Provider Nurse Practitioner Adult Health; PCP Nurse Practitioner Adult Health; Visit Provider Internal Medicine Cardiovascular Disease
DX: I25.10 Atherosclerotic heart disease of native coronary artery without angina pectoris (principal); I25.2 Old myocardial infarction; I10 Essential (primary) hypertension; E78.5 Hyperlipidemia, unspecified; M19.90 Unspecified osteoarthritis, unspecified site; M79.7 Fibromyalgia; K21.9 Gastro-esophageal reflux disease without esophagitis; G62.9 Polyneuropathy, unspecified; E66.9 Obesity, unspecified; Z68.31 Body mass index [BMI] 31.0-31.9, adult; Z95.1 Presence of aortocoronary bypass graft; Z79.82 Long term (current) use of aspirin; Z79.899 Other long term (current) drug therapy; Z87.891 Personal history of nicotine dependence

== ENCOUNTER 2019-07-15 15:15 | Outpatient (RCR) | payer MEDICARE, SELFPAY ==
[2019-06-14 10:40] VITALS: BMI 31.0
[2019-06-14 11:23] VITALS: BMI 31.0
--- NOTE | 2019-07-15 07:17 | CR.ITP_ITS ---
Diagnosis - General Information Admitting Diagnosis: PCI w/coronary stenting Personal Learning Style:: Audio/Visual, Written Barriers to Learning: Vision Impairment Stage of change r/t lifestyle modifications:: Action Gave educational material for:: Treating Heart Disease, Emotions & Heart Disease, Stress Management & Relaxation, Sleep Disorders & Heart Disease, How The Heart Works, What it means to have Heart Disease, How Coronary Artery Disease is Diagnosed, Heart Procedures, What Heart Medications Do, Risk Factors & Modifications, Living an Active Life, Nutrition - Education/Goals Individual Counseling: Initial Assessment: Abnormal Cholesterol Levels, High Blood Pressure, Overweight/Obesity Cardiac Rehabilitation Goals: 1. Maintain the individual as the primary focus of care. 2. To improve the patient's quality of life. 3. Identification of cardiac risk factors and provide cardiac risk factor management. 4. Enhance the psychosocial status of the patient. 5. Reconditioning enough to allow the patient to resume customary activities. 6. Control symptoms of cardiac disease Personal Goals: Initial Assessment: Improve management of stress and emotions, Improve energy level, Participate in home exercise program, Get back to work, or to resume activities faster, Improve knowledge of cardiac disease, Improve mus tiffanie strength and endurance, Improve diet and eating habits (eat healthier), Control risk factors (learn risk factor modification) Scale for measuring improvement of personal goals: Enter appropriate number in Comments. 2 = Unchanged. 3 = Slightly Better. 4 = Moderate Improvement. 5 = Met my Goal - Diagnosis & Disease Process Outcomes/Goals: Pt IDs own risk factors & lifestyle modifications by Session 10, Verbalizes symptoms of angina & response by session 3. Plan/Interventions: Assist Pt to ID & engage in lifestyle modification to reduce CVD risk, Instruct on individual risk factors, Review symptoms of angina & emergency actions, Review secondary diagnosis & identify educational needs. 30 day Reassessments:: Progressing - Safety Referral to Physical Therapy: No Referral to [facility] Case Management: No Fall Risk Assessed:: Yes Assistive Devices:: Cane Exercise - 30-day Assessment - Visit Date of Eval: 07/15/19 Session #:: 9 - Physician Prescribed Exercise Modalities: Treadmill, NuStep, SciFit Frequency: 3x/week for 12 weeks [36 sessions] Intensity: 60-80% of age predicted maximum heart rate reserve Current METSs:: 2.5 unchanged due to hip and lower back pain Target RPE 12-16:: Current RPE:: 9 Maximum Excercise HR:: 87 Resting Blood Pressure: 124/64 - PT c/o chest pain on treadmill 07/13/19 office notified. started patient on isosorbide. Maximum Exercise Blood Pressure: 128/62 EKG Type: NSR Current Physical Activity or Exercising minutes: 0 - Outcomes & Goals Goals:: Verbalizes understanding of THR, RPE & goal METS by session 6, Documents in home exercise log/reports 30 min aerobic 5 day/wk by DC, Demonstrates accurate pulse taking by DC - Intervention & Plan Exercise Program Goals: Instruct on personal THR & RPE, Instruct on MET level & personal MET goal, Show patient to take own pulse /validate performance until accurate, Instruct on home exercise - 30-day Reassessments 30 day Reassessments:: Progressing - Physical Activity Home Exercise Physical Activity - Home Exercise: Safe Exercise, Warm-up, Self-monitoring, Cool-Down, Home Exercise > 30 min Daily, Sitting Time <3 hours/daily - Intervention & Plan Plan/Intervention: Instruct warm-up & cool-down if exercising at > 2 METs, Instruct on symptoms of exercise intolerance & actions to take, Instruct & monitor on saf, Assess intial functional capacity & safety risk - 30-day Reassessments 30 day Reassessments:: Progressing Nutrition - 30-Day Assessment - Program Goals Nutrition Program Goals: LDL <100 optimal. 100 - 129 Near optimal. 130 - 159 Borderline High. 160 - 189 High. Total Cholesterol <200 desirable. 200 - 239 Borderline High. >/= 240 High. HDL < 40 Low >/=60 High. Triglycerides <150 desirable. <199 optimal. VlDL 5 - 40. HgbA1C <7%. BMI <25 Patient has diagnosis of Hyperlipidemia (ICD E78)?: Yes - Visit Date of Assessment:: 07/15/19 Session #:: 9 - Cholesterol/Lipids Triglycerides (mg/dL): 91 - intake Total Cholesterol (mg/dL): 150 LDL Cholesterol (mg/dL): 158 HDL Cholesterol (mg/dL): 43 Lipid Medication: Zetia Determine presence & major risk factors that modify LDL goal: Hypertension or hypertensive medication, Family history of premature CHD in Male < 55 years: female <65 yearsFa, Age men > 45 years; women >/= 55 years Outcomes/Goals: Pt IDs own risk factors & lifestyle modifications by Session 10, Verbalizes symptoms of angina & response by session 3., Pt independently manages Intervention/Plan: Instruct on personal lipid levels & lipid goals/NCEP guidelines, Instruct on cholesterol Referral to dietitian:: No - Patient declined/insurance does not cover 30-day Reassessments:: Progressing - Diabetes (Other Core Measures) Diabetes Type: Not Applicable - Weight Mgt (Other Care) Not Applicable: No Height: 5 ft 4 in Weight:: 185 lb - lost 4.5 pounds since exercising! BMI: 31.7 Diagnosis Overweight/Obesity BMI> 30% ICD-10 E66: Yes Diagnosis High BMI/Morbid Obesity BMI> 35% ICD-10 Z68: No Expected Body Weight: 167 lb Outcomes/Goals: Pt sets, maintains & shows weight loss goal & trend during rehab Intervention/Plan: Instruct on ideal BMI & set weight loss goal w/patient, Assist pt to ID & incorporate diet changes for weight loss by S9, Encourage goal of using 250-300dcal per session for weight loss 30 day Reassessments:: Progressing - Healthy Eating Habits Outcomes/Goals:: Consume diet rich in vegs,fruits,whole grain/high fiber,fish,lean meat, Limit sat/trans fats,cholesterol & added salts & sugars Intervention/Plan:: Assess current eating habits 30-day Reassessments:: Progressing - Education Gave educational materials for:: Healthy eating Medical- 30-Day Assessment - Visit Date of Eval: 07/15/19 Session #:: 9 - Medication Compliance Preventative Medication(s):: Aspirin, Ticagrelor/P2Y12 inhibitor, Statin/lipid, Beta kedar H/O mental health issues: depression, anxiety, or addiction?: No Doesn?t believe in the benefits of treatment?: No Believes medications are unnecessary or harmful?: No Has a concern about medication side effects?: No Expresses concern over the cost of medications?: No Outcomes/Goals: Verbalizes medications,desired effect & common side effects @ DC, Pt self-reports following medication regimen, Keeps card in wallet w/medications listed by DC Interventions/plans: Instruct on medication effects & side effects, Review medication list w/patient every two weeks, Instruct importance of taking meds as ordered & assist problem solving 30-day Reassessments:: Progressing - Tobacco Use Tobacco Use: Non-smoker - Hypertension Hypertension Diagnosis:: Hypertension ICD-10 I10 Resting Blood Pressure:: 124/64 [place] [employer] Hypertension Guidelines: [place] [employer] Hypertension Guidelines. Normal BP Less than 120/80. Elevated BP 120/80. Hypertension Stage 1: BP 130-139/80-89. Hypertesnion Stage 2: BP 140 or higher/90 or higher. Hypertension Crisis: BP higher than 180/120 Peak Exercise Blood Pressure:: 128/62 Outcomes/Goals: Able to verbalize/achieve optimal blood pressure <130/80, Incorporates diet changes & exercise for blood pressure control by DC Interventions/plan: Instruct on optimal blood pressure, hypertension & medications, Instruct on effects of sodium, alcohol, stress, exercise &hypertension 30 day Reassessments:: Progressing - Tobacco Cessation Referral Smoking Cessation Referral:: No Individual Education/Counseling:: No Education Schedule Given:: Yes Psychosocial - 30-Day Assess - VIsit Date of Eval: 07/15/19 Session #:: 9 Not Applicable: Yes History of previous Mental disease:: No - Target Goals Target Goals: Assess presence or absence of depression. Using a valid screening tool, maximizes coping skills. Positive support system - Psychosocial Test Tool Used:: [employer] Damion QOL Cardiac, PHQ-9 Questionnaire phq-9 Severity: Severity. 1-4 Minimal Depression. 5-9 Mild Depression. 10-14 Moderate Depression. 15-19 Moderately Sever Depression. 20-27 Severe Depression. Rule: See PHQ-9 Score: 16 Total Score:: 16 - Referral to Behavioral Health PS - Interventions: Yes Referral to Behavioral Health if PHQ-9 score >9:, Yes Referral to Physician if PHQ-9 if score is 5-9:, Yes Attend Stress Management Classes, No Referral to [facility] - Outcomes/Goals: See list Psychosocial Outcomes/Goals:: ID's personal stressors & 2 strategies to manage stress by discharge - Intervention/Plan: See List Interventions/Plan:: Assess stressors,coping strategies & signs of derpression on admission, Instruct/assist pt to develop coping & personal stress Mgt strategies, Instruct patient to recognize signs & symptoms of depression, Instruct patient to recog - 30-day Reassessments: 30 day Reassessments:: Progressing Patient Health Questionnaire 30-Day Re-eval Assessment 1. Little interest or pleasure in doing things: Nearly every day 2. Feeling down, depressed, or hopeless: More than half the days 3. Trouble falling or staying asleep, or sleeping too much: Nearly every day 4. Feeling tired or having little energy: More than half the days 5. Poor appetite or overeating: More than half the days 6. Feeling bad about yourself -- or that you are a failure or have let yourself or your family down: More than half the days 7. Trouble concentrating on things, such as reading the newspaper or watching television: More than half the days 8. Moving or speaking so slowly that other people could have noticed. Or the opposite - being so fidgety or restless that you have been moving around a lot more than usual: Not at all 9. Thoughts that you would be better off , or of hurting yourself in some way: Not at all How difficult have these problems made it for you to do your work, take care of things at home, or get along with other people?: Somewhat difficult Total Score: 16 Self-Efficacy 30-Day Re-eval Assessment We would like to know how confident you are in doing certain activities. Please select your confidence level for:: Select your confidence level for the following using the scale 1-10 where 1 is not at all confident and 10 is totally confident. Your score is the average of all 6 responses. Fatigue: How confident are you that you can keep the fatigue caused by your disease from interfering with the things you want to do? Select Number: 7 Physical Discomfort or Pain: How confident are you that you can keep the physical discomfort or pain of your disease from interfering with the things you want to do? Select Number: 6 Emotional Distress: How confident are you that you can keep the emotional distress caused by your disease from interfering with the things you want to do? Select Number: 7 Other Symptoms or Health Problems: How confident are you that you can keep other symptoms or health problems from interfering with the things you want to do? Select Number: 6 Different Tasks and Activities: How confident are you that you can do the different tasks and activities needed to manage your health condition so as to reduce your need to see a doctor? Select Number: 7 Medication: How confident are you that you can do things other than just taking medication to reduce how much your illness affects your everyday life? Select Number: 5 Total Score:: 6
[2019-07-15 07:28] VITALS: BP 124/64; BP 128/62; BMI 31.7
== END 2019-07-16 23:59 ==
LOC: CR 15:15
PROVIDERS: PCP Nurse Practitioner Adult Health; Referring Provider Internal Medicine Cardiovascular Disease; Visit Provider Internal Medicine Cardiovascular Disease
DX: I25.10 Atherosclerotic heart disease of native coronary artery without angina pectoris (principal); I10 Essential (primary) hypertension; Z95.1 Presence of aortocoronary bypass graft; Z95.5 Presence of coronary angioplasty implant and graft
CPT/HCPCS: 93798

== ENCOUNTER 2019-07-27 15:15 | Outpatient (RCR) | payer MEDICARE, SELFPAY ==
[2019-06-14 10:40] VITALS: BMI 31.0
[2019-07-17 00:10] VITALS: BP 124/64; BP 128/62
== END 2019-08-16 23:59 ==
LOC: CR 15:15
PROVIDERS: PCP Nurse Practitioner Adult Health; Referring Provider Internal Medicine Cardiovascular Disease; Visit Provider Internal Medicine Cardiovascular Disease
DX: I25.10 Atherosclerotic heart disease of native coronary artery without angina pectoris (principal); I10 Essential (primary) hypertension; Z95.1 Presence of aortocoronary bypass graft; Z95.5 Presence of coronary angioplasty implant and graft
CPT/HCPCS: 93798

== ENCOUNTER → 2019-08-01 15:09 | Outpatient (CLI) | payer MEDICARE, SELFPAY ==
[2019-07-15 07:28] VITALS: BMI 31.7
[2019-08-01 14:33] VITALS: BMI 31.0
[2019-08-01 16:08] LABS: Absolute Lymphocyte Count 2.29 X10^3/uL (0.83-4.51); Absolute Neutrophil Count 4.7 X10^3/uL (2.0-7.7); Basophil# 0.05 X10^3/uL; Basophil% 0.6 % (0-1); Eosinophil# 0.31 X10^3/uL; Eosinophils% 3.9 % (0-5); Hematocrit 39.7 % (37-47); Hemoglobin 12.7 g/dL (12.0-15.0); Lymphocyte # 2.29 X10^3/ul (4.0); Lymphocyte % 28.9 % (19-41); Mean Corpuscular Hgb 29.1 pg (27.0-32.0); Mean Corpuscular Volume 91.1 fL (81-99); Mean Platelet Vol. 10.4 fl (6.2-12.0); Monocyte# 0.54 X10^3/uL; Monocyte% 6.8 % (0-10); NRBC Flagged by Analyzer 0 % (0-5); Neutrophil % 59.4 % (47-70); Platelet Count 226 K/mm3 (150-450); RBC Distribution Width CV 13.8 % (11.6-14.6); RBC Distribution Width SD 45.7 fl (35.1-43.9); Red Blood Count 4.36 M/mm3 (4.2-5.4); White Blood Count 7.9 K/mm3 (4.4-11.0)
[2019-08-01 16:40] LABS: AST(SGOT) 22 U/L (15-37); Alanine Aminotransfer ALT/SGPT 27 U/L (13-56); Albumin, Serum 3.4 g/dL (3.2-5.0); Alkaline Phosphatase 81 U/L (45-117); Anion Gap 6 (5-15); BUN 14 mg/dL (7-18); Bilirubin, Direct 0.08 mg/dL (0.00-0.30); Calcium,Total 8.8 mg/dL (8.5-10.1); Chloride 112 mmol/L (98-107); Cholesterol 187 mg/dL (200); Creatinine, Serum 0.93 mg/dL (0.55-1.02); EST Glomerular Filtration Rate 63 mL/min (>60); Est Glom Filt Rate - Afr Amer 76 mL/min (>60); Glucose 85 mg/dL (74-106); High Density Lipoprotein 39 mg/dL; Potassium 4.3 mmol/L (3.5-5.1); Protein, Total 6.4 g/dL (6.4-8.2); Sodium Level 142 mmol/L (136-145); Triglycerides 148 mg/dL; Very Low Density Lipoprotein 30 mg/dL (5-40)
== END ==
PROVIDERS: PCP Nurse Practitioner Adult Health; Referring Provider Physician Assistant Medical; Visit Provider Physician Assistant Medical
DX: I25.10 Atherosclerotic heart disease of native coronary artery without angina pectoris (principal); I10 Essential (primary) hypertension; E78.5 Hyperlipidemia, unspecified; R07.9 Chest pain, unspecified; I25.2 Old myocardial infarction
CPT/HCPCS: 36415; 80048; 80061; 80076; 84443; 85025

== ENCOUNTER 2019-09-21 06:44 | Outpatient (RCR) | payer MEDICARE, SELFPAY ==
[2019-08-16 09:34] VITALS: BMI 31.0
[2019-08-17 00:13] VITALS: BP 124/64; BP 128/62
--- NOTE | 2019-08-19 08:13 | PCM.CR.ITP ---
Exercise - Initial Assessment - Visit Date of Eval: 08/19/19 - With obvious neccessary interupption in the delivery of CR, the patient's program is on hold due to the coronovirus. The CR program has been closed for patient safety reasons.
[2019-08-30 11:56] VITALS: BMI 31.0
== END 2019-10-16 23:59 ==
LOC: CR 06:44
PROVIDERS: PCP Nurse Practitioner Adult Health; Referring Provider Internal Medicine Cardiovascular Disease; Visit Provider Internal Medicine Cardiovascular Disease
DX: I25.10 Atherosclerotic heart disease of native coronary artery without angina pectoris (principal); I10 Essential (primary) hypertension; Z95.1 Presence of aortocoronary bypass graft
CPT/HCPCS: 93798

== ENCOUNTER → 2019-09-27 11:26 | Outpatient (CLI) | payer MEDICARE, SELFPAY ==
[2019-08-30 11:56] VITALS: BMI 31.0
--- NOTE | 2019-09-27 11:29 | RAD_ITS ---
STUDY: X-RAY CHEST REASON FOR EXAM: Female, 74 years old. Pre heart cath -- syncopal episodes SOB, chest discomfort TECHNIQUE: PA and lateral views of the chest. COMPARISON: Comparison is made with prior study dated May 01, 2019. FINDINGS: The lungs are clear and expanded. There is no demonstrated pleural abnormality. Sternal cerclage wires and vascular clips are present from a prior sternotomy and coronary artery bypass graft procedure (CABG). Normal mediastinum and ramakrishna. Normal visualized pulmonary arteries. There is atherosclerotic calcification of the aortic arch with tortuosity. There are diffuse degenerative changes of the visualized thoracic spine. Normal visualized ribs, clavicles, and shoulders. There is no demonstrated abnormality of the visualized soft tissue structures of the upper abdomen. RAD/Chest PA and Lateral IMPRESSION: Prior CABG. No acute abnormality is seen. Electronically Signed: Tayo Bundy, at 12:05 EDT , Service support ,
[2019-09-27 12:47] LABS: Absolute Lymphocyte Count 1.72 X10^3/uL (0.83-4.51); Absolute Neutrophil Count 3.9 X10^3/uL (2.0-7.7); Basophil# 0.04 X10^3/uL; Basophil% 0.6 % (0-1); Eosinophil# 0.18 X10^3/uL; Eosinophils% 2.9 % (0-5); Hematocrit 40.4 % (37-47); Hemoglobin 12.7 g/dL (12.0-15.0); Lymphocyte # 1.72 X10^3/ul (4.0); Lymphocyte % 27.3 % (19-41); Mean Corp Hgb Conc 31.4 g/dL (32-36); Mean Corpuscular Hgb 28.9 pg (27.0-32.0); Mean Platelet Vol. 10.5 fl (6.2-12.0); Monocyte# 0.43 X10^3/uL; Monocyte% 6.8 % (0-10); NRBC Flagged by Analyzer 0 % (0-5); Neutrophil # 3.91 X10^3/uL (2.7-7.7); Neutrophil % 62.2 % (47-70); Platelet Count 213 K/mm3 (150-450); RBC Distribution Width CV 13.4 % (11.6-14.6); RBC Distribution Width SD 45.5 fl (35.1-43.9); Red Blood Count 4.39 M/mm3 (4.2-5.4); White Blood Count 6.3 K/mm3 (4.4-11.0)
[2019-09-27 13:18] LABS: Anion Gap 8 (5-15); BUN 16 mg/dL (7-18); BUN/Creat Ratio 14.5 RATIO (10-20); Calcium,Total 9.2 mg/dL (8.5-10.1); Chloride 107 mmol/L (98-107); EST Glomerular Filtration Rate 52 mL/min (>60); Est Glom Filt Rate - Afr Amer 63 mL/min (>60); Glucose 120 mg/dL (74-106); Potassium 4.6 mmol/L (3.5-5.1); Sodium Level 143 mmol/L (136-145)
== END ==
PROVIDERS: PCP Nurse Practitioner Adult Health; Visit Provider Internal Medicine Cardiovascular Disease
DX: I25.10 Atherosclerotic heart disease of native coronary artery without angina pectoris (principal); E78.5 Hyperlipidemia, unspecified; I10 Essential (primary) hypertension; I25.2 Old myocardial infarction; R06.00 Dyspnea, unspecified; R07.9 Chest pain, unspecified; Z95.1 Presence of aortocoronary bypass graft
CPT/HCPCS: 36415; 71046; 80048; 85025

== ENCOUNTER 2019-09-28 06:34 | Day surgery (SDC) | payer MEDICARE, SELFPAY ==
[2019-08-30 11:56] VITALS: BMI 31.0
[2019-09-27 11:39] VITALS: BMI 32.1
--- NOTE | 2019-09-27 17:21 | PCM.HP.BLA ---
History and Physical Date of Admission: 09/28/19 This is a 74-year-old female that presents here today for a diagnostic heart cath She does have a history of coronary artery disease with bypass surgery in 2006, she had an CHIU to the LAD, sequential SVG to the obtuse marginal 1 and 2. In April 092018 she presented to the emergency room with chest discomfort. Stress test was abnormal. Heart catheterization demonstrated patent bypass graft she underwent PCI of the mid left circumflex. CHIU to the LAD was patent, SVG to the first obtuse marginal was patent. In April she presented to the emergency room with chest discomfort and underwent a heart catheterization which demonstrated in-stent stenosis, she did have a PCI of this vessel and then was stented. 08/01/2019: She has been in cardiac rehab. 2 weeks ago she called complaining of chest pain. We started her on Imdur. This initally helped but now she notes that it comes back with exertion and is more frequent. She notes that this is is simiar to what she had with her previous events last year. She notes that pain started in her chest and radiates to her gums and her jaw. She has not used any NTG. She did not think about taking this. She also notes that she is SOB during these spells. She notes that she is fatigued and feels that this has worsened. She does not have any light headedness/dizziness. She does not have any edema. We had increased her Imdur to 60 mg daily. If she had not improved would proceed with heart cath. She also held her statin d/t muscles aches to see if this would help. 09/01/2019: during a telephone follow up. She has noted needed to use NTG since we seen her last. Overall she feels that she is doing well. She feels that she does have chest heaviness with big activity. she feels her muscle aches are better since stopping her statin. She does not have any worsening SOB. She does not have any palpitations. Her symptoms seemed to be improving with addition of Imdur, plan was to proceed with stress test since her symptoms improved. This was schedule but needed to be postpone d/t a in the family. 09/26/2019: She called our office with concerns of worsening symptoms. Based on symptoms she is scheduled for a heart cath today. Vital Signs 08/30/19 BP 140/70 H 08/30/19 Pulse 60 Intake VS: see chart Chief Complaint: Chest pain Allergies isometheptene [From Midrin] Allergy (Verified 08/16/19 09:31) shaking Sulfa (Sulfonamide Antibiotics) Allergy (Verified 08/16/19 09:31) throat Swelling ezetimibe [From Zetia] Adverse Reaction (Severe, Verified 08/16/19 09:31) Pain in joints Jrluehx-Byq-Wpy Reductase Inhibitor Adverse Reaction (Severe, Verified 08/16/19 09:31) myalgias codeine Adverse Reaction (Verified 08/16/19 09:31) Nausea/Vom/Diarrhea dichloralphenazone [From Midrin] Adverse Reaction (Verified 08/16/19 09:31) shaking fish oil Adverse Reaction (Verified 08/16/19 09:31) Other ibuprofen Adverse Reaction (Verified 08/16/19 09:31) stomachaches topiramate [From Topamax] Adverse Reaction (Verified 08/16/19 09:31) I felt crazy Medications Citalopram [Celexa] 20 mg PO QHS 02/18/16 [History Confirmed 08/30/19] Gabapentin [Neurontin] 300 mg PO TID 04/08/19 [History Confirmed 08/30/19] Aspirin E.C. [Ecotrin] 81 mg PO DAILY@0800 #30 tab 04/12/19 [Rx Confirmed 08/30/19] Nitroglycerin 0.4 mg SL PRN PRN #25 tab.subl 05/03/19 [Rx Confirmed 08/30/19] losartan 100 mg tablet 100 mg PO DAILY #90 tab 05/10/19 [Rx Confirmed 08/30/19] pantoprazole 20 mg tablet,delayed release 20 mg PO DAILY #90 tab 05/10/19 [Rx Confirmed 08/30/19] ezetimibe 10 mg tablet 10 mg PO DAILY #30 tab 06/06/19 [Rx Confirmed 08/30/19] ticagrelor 90 mg tablet 90 mg PO BID #180 tab 06/06/19 [Rx Confirmed 08/30/19] furosemide 20 mg tablet 20 mg PO DAILY PRN #30 tab 08/16/19 [Rx Confirmed 08/30/19] isosorbide mononitrate 60 mg tablet,extended release 24 hr 60 mg PO BID #60 tab 08/16/19 [Rx Confirmed 08/30/19] amlodipine 5 mg tablet 5 mg PO DAILY #90 tab 08/30/19 [Rx Confirmed 08/30/19] metoprolol succinate 25 mg tablet,extended release 24 hr 25 mg PO DAILY #90 tab 08/30/19 [Rx Confirmed 08/30/19] Nurse's Note: VS per pt PFSH Social History (Updated 08/30/19 @ 11:56 by TYSON Mcgowan) Smoking Status: Former smoker alcohol intake: never substance use type: does not use ROS Const Const: Positive for fatigue; negative for weakness, fever(s) or headache(s) Eyes Eyes: Negative for blind spots, loss of peripheral vision or transient loss of vision ENT ENT: Negative for headache(s), dizziness, tinnitus or Nosebleed/epistaxis Cardio Chest Pain: yes Palpitations: No Edema: None Muscle aches with walking: None Resp: Positive SOB with activity Respiratory: Negative for SOB at rest, SOB orthopnea\SOB lying down or Cough GI Positive: Nausea GI: Negative vomiting, heartburn or vomiting blood/hematemesis : Negative for hematuria Musc Musc: Positive for muscle aches/ myalgia, muscle weakness and joint pain Neuro Neuro: Negative for dizziness, lightheadedness, near syncope, syncope, orthostatic symptoms, headache(s) or weakness Ken Hematologic/Lymphatic: Negative for easy bleeding Endo Endo: Positive for fatigue Cardiology Exam Const Appearance: cooperative, no acute distress and well developed Orientation: alert, awake and oriented x3 Head Head: normocephalic and atraumatic Mouth: moist mucous membranes Eyes General: appearance normal, both eyes and all related structures Conjunctivae: conjunctivae normal Pupils: PERRL EOM: EOM intact bilaterally Neck Neck: normal visual inspection, no lymphadenopathy and no JVD Carotids: Negative bruit Neck Mass: Negative Neck mass Chest Chest inspection: normal inspection of the chest and symmetric chest movement Auscultation: Bilateral: Clear to Auscultation Cardio Palpation: normal PMI Rate: regular rate Rhythm: regular rhythm Heart sounds: S1 normal and S2 normal; negative rub, gallop or murmur GI GI: normal to inspection, soft, no hepatosplenomegaly and bowel sounds present; negative tender Neuro General: alert, awake, oriented x3, CN's II-XI intact bilaterally and moves all extremities Extremities Pulses: Normal: Right Posterior Tibial Pulse, Left Posterior Tibial Pulse, Right Radial Pulse, Left Radial Pulse Lower Extremity Edema: None: Bilateral Psych Psychological: normal affect Assessment & Plan 1. Atherosclerosis of coronary artery of [place] heart with angina pectoris Pts symptoms are concerning for angina, with her hx of re-instent stenosis she will undergo a diagnostic heart cath. Follow up will be based on findings.
--- NOTE | 2019-09-28 07:23 | EKG12_ITS ---
Test Reason : PREPROCEDURE Blood Pressure : / mmHG Vent. Rate : 065 BPM Atrial Rate : 065 BPM P-R Int : 152 ms QRS Dur : 078 ms QT Int : 444 ms P-R-T Axes : 051 040 067 degrees QTc Int : 461 ms Normal sinus rhythm Normal ECG No previous ECGs available Confirmed by CINDY PIMENTEL ([id number]), editor house organ ONUR COMBS ([id number]) on 10/03/2019 1:59:35 PM Referred By: Dez Smith Confirmed By:CINDY PIMENTEL
--- NOTE | 2019-09-28 09:23 | CL.D_ITS ---
Patient Name: SOFIA KULKARNI Study Date: 09/28/2019 Performing: Dez Smith MD Ht: 64.17 inches 163 cm : 1945 Wt: 187.39 lbs 85 kg Age: 74 Gender: female BSA: 1.91 PROCEDURE(S) PERFORMED [id number]/COR/LV/CABG [id number], CORONARY OR GRAFT, INITIAL VESSEL CLINICAL PROFILE AND INDICATIONS Indications: Worsening Angina Heart Failure: None Stress/Imaging Stress/Image Study Performed: No CAD Presentations: Symptom unlikely to be ischemic. CONCLUSIONS Dominant left circumflex artery with previously stented mid circumflex artery vessel noted to be dixon nt. RECOMMENDATIONS Staged for FFR Medical therapy She did develop some chest discomfort with premature ventricular complexes. It is likely that her pa in is not coronary obstructive in nature. We will try and make adjustments to her medical therapy DESCRIPTION OF PROCEDURE The patient arrived to the procedure lab. The risks and benefits of the procedure as well as a full d escription of our services here and current unavailability of surgical backup were fully explained to the patient and/or their significant other prior to the catheterization. The Timeout was completed, verifying the correct patient and procedure. The patient's procedural site was prepped and draped in the usual fashion. Local anesthetic was given subcutaneously to right groin region with Lidocaine 2%. Using a modified Seldinger technique, arterial access was obtained via the right femoral artery, a 5 Fr sheath was inserted. Left Coronary Artery selective angiography was performed in multiple views u sing a 5 Fr. JL4 catheter. Right Coronary Artery selective angiography was then performed in multiple views using a 5 Fr. 3DRC (Moises) catheter. Saphenous Vein graft to the OM 1 and OM 2 selective an giography was performed in multiple views using a 5 Fr. 3DRC (Moises) catheter. Left internal mammary artery graft to the LAD selective angiography was performed in multiple views using a 5 Fr. 3DRC (Moises) catheter. Left Ventriculography was performed in ONOFRE projection using a 5 Fr. Pigtail catheter. LV to AO pullback pressures were then recorded.Contrast was injected through the s selma and the Right Iliac and Femoral artery were assessed for possible closure device.The arterial s selma was pulled and a Mynx closure device was deployed for hemostasis CORONARY ANGIOGRAPHY DOMINANCE: Left Dominant LEFT HEART ASSESSMENT Left Ventricular Ejection Fraction: by LV Gram 60 % Normal LV wall motion Normal Left Ventricular systolic function LEFT MAIN: Angiographically normal LEFT ANTERIOR DESCENDING ARTERY: MID LAD: 80 % Stenosis CIRCUMFLEX ARTERY: Previously placed stent is patent RIGHT CORONARY ARTERY: No significant disease noted GRAFTS: Saphenous Vein graft to the 1st OM has a distal lesion of 60 % Saphenous Vein graft to the 1st OM The body of the graft itself is patent. Post anastomotic site is an area of stenosis of approximately 60% which appears to be similar to prior. However will consider FFR to the above CHIU graft to the Mid LAD is patent COMPLICATIONS No Complications PROCEDURE MEDICATIONS Versed 1 mg IV Versed 1 mg IV Fentanyl 50 mcg IV Versed 1 mg IV Fentanyl 25 mcg IV Oxygen: 2 L/min via nasal cannula Adenosine drip for FFR 24.4 ml IV 09/28/2019 09:06:03 Adenosine drip for FFR 33.7ml IV @ 09/28/2019 09:11:46 Heparin 6000 unit(s) IV 09/28/2019 08:59:30 Nitro Tab 0.4 mg PO 09/28/2019 08:53:32 Nitro 200 mcg IC 09/28/2019 09:02:15 SUMMARY OF HEMODYNAMIC DATA Time AIR REST ECG 07:30:21 AO 144/73 (99) SA 08:38:53 LV 138/8, 19 08:47:28 LV 144/15, 22 08:47:34 LVp 150/68, 73 08:48:17 AOp 139/64 (94) 08:48:22 AO 135/61 (89) 09:01:30 Signed By Dez Smith MD On 09/28/2019 9:23:07 AM Dez Smith MD
--- NOTE | 2019-09-28 09:28 | CL.I_ITS ---
Patient Name: SOFIA KULKARNI Study Date: 09/28/2019 Performing: Mike Coto MD Ht: 64.17 inches 163 cm : 1945 Wt: 187.39 lbs 85 kg Age: 74 Gender: female BSA: 1.91 PROCEDURE(S) PERFORMED [id number], CORONARY OR GRAFT, INITIAL VESSEL CLINICAL PROFILE AND CO-MORBIDITIES Indications: Worsening Angina, New Onset Angina <= 2 months, Stable Known CAD Heart Failure: None Stress/Imaging Stress/Image Study Performed: No Stress/Image Study Performed: No Angina Classification Anginal Classification w/in 2 Weeks: CCS IV CAD Presentations: Symptom unlikely to be ischemic. Symptom unlikely to be ischemic. Comorbidities/Risk Factors: Hypertension Dyslipidemia Prior PCI Prior CABG Peripheral Arterial Disease CONCLUSIONS Negative FFR x 2 to SVG to agdaagux OM; no intervention recommended or performed. RECOMMENDATIONS Highly recommend quitting all tobacco products Follow up with primary equipment tester Risk factor modification ASA Indefinitley Plavix for at least 12 months Routine post interventional care Refer for Outpatient Cardiac Rehab Manual sheath removal per protocol Follow up with Dr. Smith Successful Mynx Control closure of RFA. Look for other sources of non cardiac chest pain. DESCRIPTION OF PROCEDURE The patient arrived to the procedure lab. The risks and benefits of the procedure as well as a full d escription of our services here and current unavailability of surgical backup were fully explained to the patient and/or their significant other prior to the catheterization. The Timeout was completed, verifying the correct patient and procedure. The patient's procedural site was prepped and draped in the usual fashion. Local anesthetic was given subcutaneously to right groin region with Lidocaine 2% Using a modified Seldinger technique,arterial access was obtained via the right femoral artery, a 5Fr sheath was inserted. Left Coronary Artery selective angiography was performed in multiple views usin g a 5 Fr. JL4 catheter. Right Coronary Artery selective angiography was then performed in multiple vi ews using a 5 Fr. 3DRC (Moises) catheter. Saphenous Vein graft to the OM 1 and OM 2 selective angio graphy was performed in multiple views using a 5 Fr. 3DRC (Moises) catheter. Left internal mammary artery graft to the LAD selective angiography was performed in multiple views using a 5 Fr. 3DRC (Moises) catheter. Left Ventriculography was performed in ONOFRE projection using a 5 Fr. Pigtail catheter. LV to AO pullback pressures were then recorded.The images were reviewed and option s discussed. A decision was then made to proceed with an Intervention, IVUS or other adjunct procedur e. Arterial sheath was exchanged for a 6 Fr Sheath. HS II Guide catheter was inserted and engaged in to the SVG to the OM 1. FFR Guide wire was advanced to the 1st OM. The FFR/iFR wire was inserted. Una nosine was then given per protocol. Pressures and FFR/iFR were then recorded. FFR Ratio Baseline: 1.0 FFR Ratio post Adenosine: 0.95 Adenosine was then given per protocol. Pressures and FFR/iFR were the n recorded. FFR Ratio Baseline: 0.97 FFR Ratio post Adenosine: 0.93 Contrast was injected through the sheath and the Right Iliac and Femoral artery were assessed for possible closure device. The arteri al sheath was pulled and a Mynx closure device was deployed for hemostasis INTERVENTION INFORMATION LESION SITE: Saphaenous Vein Graft to the OM lesion location in the agdaagux vessel (proximal) Lesion Complexity: High/C, thrombus present: No, lesion at bifurcation: No, lesion length: 16 mm, cul prit lesion: Yes Pre Stenosis: 60 % Pre intervention AZUL flow: 3 PROCEDURE: FFR Post Stenosis: 60 % Post intervention AZUL flow: 3 Lesion Devices: [employer] ( Formerly [employer]) Coronary FFR Wire [employer] 6 Fr HSII 100cm Guide Catheter COMPLICATIONS No Complications PROCEDURE MEDICATIONS Versed 1 mg IV Versed 1 mg IV Fentanyl 50 mcg IV Versed 1 mg IV Fentanyl 25 mcg IV Oxygen: 2 L/min via nasal cannula Adenosine drip for FFR 24.4 ml IV 09/28/2019 09:06:03 Adenosine drip for FFR 33.7ml IV @ 09/28/2019 09:11:46 Heparin 6000 unit(s) IV 09/28/2019 08:59:30 Nitro Tab 0.4 mg PO 09/28/2019 08:53:32 Nitro 200 mcg IC 09/28/2019 09:02:15 SUMMARY OF HEMODYNAMIC DATA Time AIR REST ECG 07:30:21 AO 144/73 (99) SA 08:38:53 LV 138/8, 19 08:47:28 LV 144/15, 22 08:47:34 LVp 150/68, 73 08:48:17 AO 139/64 (94) 08:48:22 AO 135/61 (89) 09:01:30 Signed By Mike Coto MD On 09/28/2019 09:27:41 Mike Coto MD
[2019-09-28 09:30] LABS: ACT Activated Clotting Time 197 sec (74-137)
== END 2019-09-28 13:45 | disposition home or self-care (01) ==
PROVIDERS: PCP Nurse Practitioner Adult Health; Referring Provider Internal Medicine Cardiovascular Disease; Visit Provider Internal Medicine Cardiovascular Disease
DX: I25.119 Atherosclerotic heart disease of native coronary artery with unspecified angina pectoris (principal); I10 Essential (primary) hypertension; I73.9 Peripheral vascular disease, unspecified; E78.5 Hyperlipidemia, unspecified; Z95.1 Presence of aortocoronary bypass graft; Z79.82 Long term (current) use of aspirin; Z79.899 Other long term (current) drug therapy; Z87.891 Personal history of nicotine dependence
CPT/HCPCS: 85347; 93005; 93458; 93571; 99152; 99153; J0153; J7040; Q9967; C1769; C1887; C1894

== ENCOUNTER → 2019-11-09 14:44 | Outpatient (CLI) | payer MEDICARE, SELFPAY ==
[2019-11-09 10:31] VITALS: BMI 31.7
--- NOTE | 2019-11-09 14:46 | VDLE_ITS ---
Reason For Study: SWELLING Procedure LEFT Exam performed in department. CFV is compressible, spontaneous, phasic, A preliminary report was called and/or faxed competent, and demonstrates normal to Erendira Montemayor. augmentation. FV is compressible, spontaneous, phasic, competent and demonstrates normal augmentation. POP V is compressible, spontaneous, phasic, competent and demonstrates normal augmentation. T/P Trunk is compressible. PTV is compressible. LT PerV is compressible. LT GSV has been harvested for CABG. Interpretation Summary There is no evidence of left lower extremity deep vein thrombosis. Left great saphenous vein previously harvested Ordering Physician: Erendira Montemayor Referring Physician: Erendira Montemayor Performed By: Maxine Flores, DEMI, RVT
== END ==
PROVIDERS: PCP Nurse Practitioner Adult Health; Referring Provider Physician Assistant Medical; Visit Provider Physician Assistant Medical
DX: M79.89 Other specified soft tissue disorders (principal)
CPT/HCPCS: 93971

== ENCOUNTER → 2019-11-22 13:56 | Outpatient (CLI) | payer MEDICARE, SELFPAY ==
[2019-11-09 10:31] VITALS: BMI 31.7
[2019-11-22 15:18] LABS: Anion Gap 7 (5-15); BUN 17 mg/dL (7-18); BUN/Creat Ratio 16.3 RATIO (10-20); Calcium,Total 8.4 mg/dL (8.5-10.1); Chloride 110 mmol/L (98-107); Creatinine, Serum 1.04 mg/dL (0.55-1.02); EST Glomerular Filtration Rate 55 mL/min (>60); Est Glom Filt Rate - Afr Amer 67 mL/min (>60); Glucose 95 mg/dL (74-106); Potassium 4.5 mmol/L (3.5-5.1); Sodium Level 141 mmol/L (136-145)
[2019-11-22 15:19] LABS: BNP,B-Type NATRIURETIC PEPTIDE 150.7 pg/mL (0-100)
== END ==
PROVIDERS: PCP Nurse Practitioner Adult Health; Referring Provider Physician Assistant Medical; Visit Provider Physician Assistant Medical
DX: I25.10 Atherosclerotic heart disease of native coronary artery without angina pectoris (principal); R06.00 Dyspnea, unspecified
CPT/HCPCS: 36415; 80048; 83880

== ENCOUNTER → 2019-12-14 13:20 | Outpatient (CLI) | payer MEDICARE, SELFPAY ==
[2019-11-09 10:31] VITALS: BMI 31.7
[2019-12-14 15:30] LABS: Anion Gap 5 (5-15); BUN 22 mg/dL (7-18); BUN/Creat Ratio 19.1 RATIO (10-20); Calcium,Total 8.8 mg/dL (8.5-10.1); Chloride 108 mmol/L (98-107); Creatinine, Serum 1.15 mg/dL (0.55-1.02); EST Glomerular Filtration Rate 49 mL/min (>60); Est Glom Filt Rate - Afr Amer 59 mL/min (>60); Glucose 95 mg/dL (74-106); Potassium 4.1 mmol/L (3.5-5.1); Sodium Level 139 mmol/L (136-145)
== END ==
PROVIDERS: PCP Nurse Practitioner Adult Health; Referring Provider Physician Assistant Medical; Visit Provider Physician Assistant Medical
DX: I10 Essential (primary) hypertension (principal)
CPT/HCPCS: 36415; 80048

== ENCOUNTER 2020-07-24 08:00 | Outpatient (RCR) | payer MEDICARE, SELFPAY ==
[2019-12-16 14:58] VITALS: BMI 31.2
[2020-07-24] MEDS: COVID-19 VACC, MRNA(PFIZER)/PF 30 MCG/0.3 ML SYRINGE IM (13:17)
[2020-08-14] MEDS: COVID-19 VACC, MRNA(PFIZER)/PF 30 MCG/0.3 ML SYRINGE IM (12:54)
== END 2020-10-23 23:59 ==
LOC: IMMUN 08:00
PROVIDERS: PCP Nurse Practitioner Adult Health; Visit Provider Family Medicine
DX: Z23 Encounter for immunization (principal)
CPT/HCPCS: 0001A; 0002A; 91300

== ENCOUNTER → 2020-07-26 15:59 | Outpatient (CLI) | payer MEDICARE, SELFPAY ==
[2020-07-26 13:23] VITALS: BMI 31.9
--- NOTE | 2020-07-26 16:08 | RAD_ITS ---
STUDY: X-RAY CHEST REASON FOR EXAM: Female, 75 years old. cad TECHNIQUE: 2 views COMPARISON: Prior chest radiograph of 09/27/2019 FINDINGS: The lungs are clear and expanded. There is no demonstrated pleural abnormality. Normal cardiac size is status post prior midline sternotomy for CABG. Normal mediastinum and ramakrishna. Normal visualized pulmonary arteries. There is atherosclerotic calcification of the aortic arch with tortuosity. There are diffuse degenerative changes of the visualized thoracic spine. Normal visualized ribs, clavicles, and shoulders. There is no demonstrated abnormality of the visualized soft tissue structures of the upper abdomen. RAD/Chest PA and Lateral IMPRESSION: Stable appearance of the chest without new consolidation, focal atelectasis or pleural effusion. Normal cardiac size status post prior midline sternotomy. Stable atherosclerotic changes of the thoracic aorta. Electronically Signed: Francine Link MD at 17:07 EST , Service support ,
[2020-07-26 17:18] LABS: Absolute Lymphocyte Count 1.99 X10^3/uL (0.83-4.51); Absolute Neutrophil Count 3.8 X10^3/uL (2.0-7.7); Basophil# 0.05 X10^3/uL; Basophil% 0.7 % (0-1); Eosinophil# 0.19 X10^3/uL; Eosinophils% 2.8 % (0-5); Hematocrit 38.3 % (37-47); Hemoglobin 12.4 g/dL (12.0-15.0); Lymphocyte # 1.99 X10^3/ul (4.0); Lymphocyte % 29.5 % (19-41); Mean Corp Hgb Conc 32.4 g/dL (32-36); Mean Corpuscular Hgb 31.8 pg (27.0-32.0); Mean Corpuscular Volume 98.2 fL (81-99); Mean Platelet Vol. 10.5 fl (6.2-12.0); Monocyte# 0.68 X10^3/uL; Monocyte% 10.1 % (0-10); NRBC Flagged by Analyzer 0 % (0-5); Neutrophil % 56.5 % (47-70); Platelet Count 250 K/mm3 (150-450); RBC Distribution Width CV 13.1 % (11.6-14.6); RBC Distribution Width SD 46.1 fl (35.1-43.9); White Blood Count 6.7 K/mm3 (4.4-11.0)
[2020-07-26 18:05] LABS: Anion Gap 5 (5-15); BUN 18 mg/dL (7-18); Calcium,Total 8.8 mg/dL (8.5-10.1); Chloride 109 mmol/L (98-107); EST Glomerular Filtration Rate 58 mL/min (>60); Est Glom Filt Rate - Afr Amer 70 mL/min (>60); Glucose 89 mg/dL (74-106); Potassium 4.4 mmol/L (3.5-5.1); Sodium Level 142 mmol/L (136-145)
== END ==
PROVIDERS: PCP Nurse Practitioner Adult Health; Referring Provider Internal Medicine Cardiovascular Disease; Visit Provider Internal Medicine Cardiovascular Disease
DX: I25.10 Atherosclerotic heart disease of native coronary artery without angina pectoris (principal); E78.5 Hyperlipidemia, unspecified; R07.9 Chest pain, unspecified; Z95.1 Presence of aortocoronary bypass graft; Z95.5 Presence of coronary angioplasty implant and graft
CPT/HCPCS: 36415; 71046; 80048; 85025

== ENCOUNTER 2020-08-02 07:25 | Day surgery (SDC) | payer MEDICARE, SELFPAY ==
[2020-07-26 13:23] VITALS: BMI 31.9
[2020-08-01 12:47] VITALS: BMI 31.9
--- NOTE | 2020-08-02 06:00 | HP_ITS ---
HPI HPI History of Present Illness Details: This is a 75-year-old female who presents to the office today for a cardiovascular outpatient follow-up. She does have a history of coronary artery disease with bypass surgery in 2006, she had an CHIU to the LAD, sequential SVG to the obtuse marginal 1 and 2. In April 092018 she presented to the emergency room with chest discomfort. Stress test was abnormal. Heart catheterization demonstrated patent bypass graft she underwent PCI of the mid left circumflex. CHIU to the LAD was patent, SVG to the first obtuse marginal was patent. In April 2019, she presented to the emergency room with chest discomfort and underwent a heart catheterization which demonstrated in-stent stenosis, she did have a PCI of this vessel and then was stented. She continues with exertional chest pain. She had 2 episodes last week that she utilized NTG to improve the symptoms. Intake Vital Signs 07/26/20 Height 5 ft 4 in 07/26/20 Weight: 186 lb 07/26/20 BMI 31.9 07/26/20 BP 146/82 H 07/26/20 Respiration 18 07/26/20 Pulse 68 07/26/20 Pulse Oximetry (%) 95 Intake Visit Reasons: 7 M FU Allergies isometheptene [From Midrin] Allergy (Verified 07/26/20 13:23) shaking Sulfa (Sulfonamide Antibiotics) Allergy (Verified 07/26/20 13:23) throat Swelling ezetimibe [From Zetia] Adverse Reaction (Severe, Verified 07/26/20 13:23) Pain in joints [id number]-Efy Reductase Inhibitor Adverse Reaction (Severe, Verified 07/26/20 13:23) myalgias codeine Adverse Reaction (Verified 07/26/20 13:23) Nausea/Vom/Diarrhea dichloralphenazone [From Midrin] Adverse Reaction (Verified 07/26/20 13:23) shaking fish oil Adverse Reaction (Verified 07/26/20 13:23) Other ibuprofen Adverse Reaction (Verified 07/26/20 13:23) stomachaches topiramate [From Topamax] Adverse Reaction (Verified 07/26/20 13:23) I felt crazy Medications Citalopram [Celexa] 20 mg PO QHS 02/18/16 [History Confirmed 07/26/20] Gabapentin [Neurontin] 300 mg PO TID 04/08/19 [History Confirmed 07/26/20] Aspirin E.C. [Ecotrin] 81 mg PO DAILY@0800 #30 tab 04/12/19 [Rx Confirmed 07/26/20] Nitroglycerin 0.4 mg SL PRN PRN #25 tab.subl 05/03/19 [Rx Confirmed 07/26/20] furosemide 20 mg tablet 20 mg PO DAILY #30 tab 11/23/19 [Rx Confirmed 07/26/20] ticagrelor 90 mg tablet 90 mg PO BID #180 tab 12/27/19 [Rx Confirmed 07/26/20] ranolazine 1,000 mg tablet,extended release,12 hr 1,000 mg PO BID #180 tab 02/09/20 [Rx Confirmed 07/26/20] isosorbide mononitrate 60 mg tablet,extended release 24 hr 60 mg PO BID #180 tab 02/16/20 [Rx Confirmed 07/26/20] losartan 100 mg tablet 100 mg PO DAILY #90 tab 05/15/20 [Rx Confirmed 07/26/20] pantoprazole 20 mg tablet,delayed release 20 mg PO DAILY #90 tab 05/24/20 [Rx Confirmed 07/26/20] amlodipine 5 mg tablet 5 mg PO DAILY #90 tab 07/26/20 [Rx Confirmed 07/26/20] metoprolol succinate 25 mg tablet,extended release 24 hr 25 mg PO DAILY #90 tab 07/26/20 [Rx Confirmed 07/26/20] Ejection fraction %: 65 to 70 PFSH Medical History Atherosclerosis of coronary artery of [place] 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) History of non-ST elevation myocardial infarction (NSTEMI) (Resolved 05/01/19) Essential (primary) hypertension (Chronic) HLD (hyperlipidemia) (Chronic) Arthritis (Chronic) Chronic low back pain (Chronic) Chronic low back pain (Chronic) Chronic narcotic use (Chronic) Fibromyalgia (Chronic) Fibromyalgia (Chronic) GERD (gastroesophageal reflux disease) (Chronic) GERD (gastroesophageal reflux disease) (Chronic) Leg cramps (Chronic) Neuropathy (Chronic) Neuropathy (Chronic) Obesity (BMI 30.0-34.9) (Chronic) Osteoarthritis (Chronic) Plantar fasciitis (Chronic) Stomach ulcer (Chronic) 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) Brain tumor (Resolved) Unstable angina (Resolved) Surgical History History of coronary artery stent placement (Chronic 05/02/19) H/O coronary artery bypass surgery (Chronic 2006) History of laparoscopic cholecystectomy (Chronic) H/O laminectomy (Resolved) History of bladder surgery (Resolved) History of craniotomy (Resolved) History of fusion of cervical spine (Resolved) History of hysterectomy (Resolved) History of left heart catheterization (Resolved 09/28/19) Family History Grandmother Hypertension Father CVA (cerebral vascular accident) Heart disease Mother Hypertension Cancer Brother Cancer Sister Hypertension Social History (Updated 07/26/20 @ 15:[address] Dez Smith MD) Smoking Status: Former smoker alcohol intake: never substance use type: does not use ROS Const Const: Negative for fatigue, weakness, headache(s), frequent falls, difficulty sleeping or excessive sweating Eyes Eyes: Negative for loss of peripheral vision, transient loss of vision, blurry vision, double vision or tunnel vision ENT ENT: Negative for headache(s), dizziness, Nosebleed/epistaxis or balance problems Cardio Chest Pain: Yes (Right shoulder pain and chest heaviness with activity started 2 months ago) Frequency: weekly Character: tightness (heaviness) Location: mid sternal, right chest (right shoulder) Exacerbation: activity Relieving: rest (NTG SL) Palpitations: No Edema: None Muscle aches with walking: None Resp Respiratory: Positive for SOB with activity; negative for SOB at rest, SOB orthopnea\SOB lying down, Cough or paroxysmal nocturnal dyspnea GI GI: Negative nausea, vomiting, heartburn or black,tarry stools : Negative for hematuria Musc Musc: Positive for joint pain (back pain); negative for muscle aches/ myalgia, muscle weakness or balance problems Skin Skin: Negative non-healing lesions, rash or unusual bruising Neuro Neuro: Positive for other (BLE neuropathy); negative for dizziness, lightheadedness, near syncope, syncope, orthostatic symptoms, frequent falls, headache(s), weakness, blurry vision, double vision or lack of coordination Ken Hematologic/Lymphatic: Negative for easy bleeding or easy bruising Endo Endo: Negative for fatigue, excessive sweating or increased thirst/drinking Psych Psych: Negative for anxiety or depression Allergy Allergy/Immunology: Negative for hives, Negative for rash Cardiology Exam Const Appearance: cooperative, healthy appearing, no acute distress, well developed and well groomed Nutritional Appearance: average body habitus and well nourished Orientation: alert, awake and oriented x3 Head Head: normal to inspection, normocephalic and atraumatic Ears: hearing grossly normal bilaterally and external ears normal Nose: external nose normal, nares normal, nasal mucous membranes and turbinates normal, septum normal, no nasal discharge Face and Sinus: face symmetric Mouth: oral mucosae normal, tongue normal, oropharynx normal and moist mucous membranes Teeth and gingiva: dentition normal Throat: posterior oropharynx normal, tonsils normal and uvula midline Eyes General: appearance normal, both eyes and all related structures Eyelids: eyelids normal Conjunctivae: conjunctivae normal Pupils: PERRL, normal by confrontation and accommodation normal EOM: EOM intact bilaterally Neck Neck: normal visual inspection, trachea midline and no JVD JVD: +5 Carotids: normal carotid upstroke and bounding pulses Chest Chest inspection: normal inspection of the chest, symmetric chest movement and normal respiratory effort Auscultation: Bilateral: Clear to Auscultation Cardio Palpation: normal PMI Rate: regular rate Rhythm: regular rhythm Heart sounds: S1 normal, S2 normal and normal, physiologic split S2; negative rub, gallop or murmur GI GI: normal to inspection, soft, no hepatosplenomegaly and bowel sounds present Neuro General: alert, awake, oriented x3, gait normal, moves all extremities and no focal sensory deficit Skin Skin: no rashes or lesions noted Extremities Pulses: Normal: Right Femoral Pulse, Left Femoral Pulse, Right Dorsalis Pedis Pulse, Left Dorsalis Pedis Pulse, Right Posterior Tibial Pulse, Left Posterior Tibial Pulse, Right Radial Pulse, Left Radial Pulse Lower Extremity Edema: None: Bilateral Musculoskel Musculoskeletal: No joint tenderness Psych Psychological: normal affect Assessment & Plan 1. Chest pain R07.9 Plan Patient has been experiencing chest discomfort which is reminiscent of her previous angina. I would recommend at this stage that we perform a left heart catheterization to assess her coronary anatomy and to guide therapy. She has been on maximal medical therapy. This includes beta-kedar, isosorbide, ranolazine, and amlodipine. Orders Orders: Left Heart Cath w/Grafts Today 12 Lead EKG performed by [facility] Today Basic Metabolic Profile (BMP) Today Chest PA and Lateral Today 2. History of coronary artery stent placement Z95.5 PCI-MAEGAN-MID LCx with a 2.5 x 38 mm Promus Synergy 04/11/19; PCI with thrombectomy and POBA of ISR-mid LCx Stent 05/02/2019 Plan She is status post previous angioplasty and stenting of the mid left circumflex artery with a drug-eluting stent. She subsequently underwent an FFR of the saphenous vein graft to the obtuse marginal vessel and it was noted to be fine at the last evaluation. Medical therapy was recommended. Orders Orders: Basic Metabolic Profile (BMP) Today 3. H/O coronary artery bypass surgery Z95.1 CABG x 3 CHIU-LAD, Sequential SVG-OM1, OM2 2006 Plan She is status post coronary artery bypass surgery. The anatomy is as discussed above. Orders Orders: Left Heart Cath w/Grafts Today 12 Lead EKG performed by BMS Today Basic Metabolic Profile (BMP) Today 4. Essential (primary) hypertension I10 Plan Blood pressure appears to be under good control at this particular time I would not recommend that we make any other major changes. 5. HLD (hyperlipidemia) E78.5 Plan She does have a history of hyperlipidemia we will continue her on the current medical therapy. Orders Orders: Chest PA and Lateral Today Plan Detail Other Orders Orders: CBC W/Diff, Automated Today I25.10 Other Medications Refilled: metoprolol succinate ER 25 mg PO DAILY 90 tabs 3RF amlodipine 5 mg PO DAILY 90 tabs 3RF Follow Up 6 Months ([facility]) Coding Level of Care Code Off vis,est,level 4 Diagnoses Chest pain R07.9 History of coronary artery stent placement Z95.5 H/O coronary artery bypass surgery Z95.1 Essential (primary) hypertension I10 HLD (hyperlipidemia) E78.5 Coding Level of Care Code Off vis,est,level 4 Diagnoses Chest pain R07.9 History of coronary artery stent placement Z95.5 H/O coronary artery bypass surgery Z95.1 Essential (primary) hypertension I10 HLD (hyperlipidemia) E78.5 Supplemental Info Supplemental Information Diagnostics Electrocardiogram 09/28/19 Cardiac Catheterization 09/28/19 Chest X-Ray 09/27/19 Venous Doppler Study 11/09/19
--- NOTE | 2020-08-02 09:57 | CL.D_ITS ---
Patient Name: SOFIA KULKARNI Study Date: 08/02/2020 Performing: Dez Smith MD Ht: 64.17 inches 163 cm : 1945 Wt: 185.19 lbs 84 kg Age: 75 Gender: female BSA: 1.9 PROCEDURE(S) PERFORMED [id number]/COR/LV/CABG CLINICAL PROFILE AND INDICATIONS Indications: Worsening Angina Heart Failure: None Stress/Imaging Stress/Image Study Performed: No CAD Presentations: Unstable angina. CONCLUSIONS Coronary disease with previously placed stent to the circumflex artery which is patent, competitive f low noted from the CHIU to the LAD, and nondominant right coronary artery and the saphenous vein virgen t to the obtuse marginal branch which is patent. On review it does not appear that it is any worse t razo the last catheterization. RECOMMENDATIONS Medical therapy DESCRIPTION OF PROCEDURE The patient arrived to the procedure lab. The risks and benefits of the procedure as well as a full d escription of our services here and current unavailability of surgical backup were fully explained to the patient and/or their significant other prior to the catheterization. The Timeout was completed, verifying the correct patient and procedure. The patient's procedural site was prepped and draped in the usual fashion. Local anesthetic was given subcutaneously to right radial region with Lidocaine 2% . Using a modified Seldinger technique, arterial access was obtained via the right radial artery, a 6 Fr sheath was inserted. Left Coronary Artery selective angiography was performed in multiple views u sing a 5 Fr. 4.0 Argyle catheter. Saphenous Vein graft to the Seq OM 1 and OM 2 selective angiography was performed in multiple views using a 5 Fr. 4.0 Argyle catheter. Right Coronary Artery selective ang iography was then performed in multiple views using a 5 Fr. 4.0 Argyle catheter. Left Ventriculography was performed in ONOFRE projection using a 5 Fr. Pigtail catheter. LV to AO pullback pr essures were then recorded.The arterial sheath was pulled and a TR Band was applied for hemostasis w/ 11ml air CORONARY ANGIOGRAPHY DOMINANCE: Left Dominant LEFT HEART ASSESSMENT Left Ventricular Ejection Fraction: by LV Gram 60 % Normal Left Ventricular systolic function LEFT MAIN: Angiographically normal LEFT ANTERIOR DESCENDING ARTERY: MID LAD: 90 % Stenosis CIRCUMFLEX ARTERY: MID CIRC: Previously placed stent is patent RIGHT CORONARY ARTERY: No significant disease noted GRAFTS: Saphenous Vein graft to the 2nd OM has a distal anastomotic lesion of 60 % CHIU graft to the Mid LAD patent from previous cath with competitive flow COMPLICATIONS No Complications PROCEDURE MEDICATIONS Versed 1 mg IV Fentanyl 50 mcg IV Versed 1 mg IV Fentanyl 25 mcg IV Fentanyl 25 mcg IV Oxygen: 2 L/min via nasal cannula SUMMARY OF HEMODYNAMIC DATA Time AIR REST ECG 07:48:11 AO 117/57 (80) SA 09:21:31 LV 126/1, 14 09:31:14 LV 121/2, 15 09:31:20 LV 131/9, 26 09:32:19 LVp 134/7, 18 09:32:25 AOp 126/57 (85) 09:32:30 Signed By Dez Smith MD On 08/02/2020 9:57:18 AM Dez Smith MD
== END 2020-08-02 12:00 | disposition home or self-care (01) ==
LOC: CLSP 07:26
PROVIDERS: PCP Nurse Practitioner Adult Health; Visit Provider Internal Medicine Cardiovascular Disease
DX: I25.10 Atherosclerotic heart disease of native coronary artery without angina pectoris (principal); I10 Essential (primary) hypertension; E78.5 Hyperlipidemia, unspecified; I25.2 Old myocardial infarction; M79.7 Fibromyalgia; K21.9 Gastro-esophageal reflux disease without esophagitis; E66.9 Obesity, unspecified; Z68.31 Body mass index [BMI] 31.0-31.9, adult; G62.9 Polyneuropathy, unspecified; M19.90 Unspecified osteoarthritis, unspecified site; M72.2 Plantar fascial fibromatosis; Z87.19 Personal history of other diseases of the digestive system; Z98.1 Arthrodesis status; Z95.1 Presence of aortocoronary bypass graft; Z79.82 Long term (current) use of aspirin; Z79.899 Other long term (current) drug therapy; Z87.891 Personal history of nicotine dependence
CPT/HCPCS: 93459; 99152; 99153; J7040; Q9967; C1769; C1894

== ENCOUNTER 2021-05-14 13:04 | Observation (INO) | payer MEDICARE, SELFPAY ==
[2021-05-14 13:04] VITALS: BP 179/77; PULSE 72; RESP 18; TEMP 36.2; O2SAT 91; BMI 31.6
--- NOTE | 2021-05-14 15:10 | CT_ITS ---
STUDY: CT ABDOMEN AND PELVIS WITHOUT CONTRAST REASON FOR EXAM: Female, 76 years old. Left flank pain RADIATION DOSAGE (If Supplied By Facility): CTDIvol = ( 15.78 ) mGy, DLP = ( 752.96 ) mGycm TECHNIQUE: Transaxial images were obtained from the dome of the diaphragm to the symphysis pubis without oral contrast, and without intravenous contrast. Sagittal and coronal images were reconstructed. Individualized dose optimization techniques were used for this CT. COMPARISON: None. FINDINGS: There are mild interstitial increased opacities of the lower lungs. There are sternotomy wires. Normal liver. Normal gallbladder and extrahepatic biliary system. Normal spleen. Normal pancreas. Normal bilateral adrenal glands. Normal right kidney. Normal left kidney. Normal visualized stomach. Normal small intestine. There are multiple colonic diverticula consistent with diverticulosis. The appendix is visualized and appears normal. There is diffuse atherosclerotic calcification of the abdominal aorta with elongation and tortuosity, with a 3.4 cm infrarenal aneurysm. Normal inferior vena cava. Normal retroperitoneum. Normal urinary bladder. There is absence of the uterus consistent with a prior hysterectomy. There is no free fluid in the abdomen or pelvis. There is upper abdominal wall hernia containing fat. There are diffuse degenerative changes of the visualized lumbar spine. CT/Abdomen/Pelvis without Cont IMPRESSION: Colonic diverticulosis. No obstruction or abscess. Infrarenal abdominal aortic aneurysm. Electronically Signed: Jonathan Niño MD at 16:21 EST , Service support ,
--- NOTE | 2021-05-14 15:12 | EDS_ITS ---
HPI History of Present Illness Chief Complaint: Back Detail of Chief Complaint: Back pain that started initially about 2 weeks ago Informant: patient and spouse/S.O. Narrative Narrative: Patient presents to the emergency department with severe back pain. Patient states initially she had some mild back discomfort that started 2 weeks ago when she had Covid. She tested positive for Covid on the . Patient had been immunized against Covid. Patient states about 3 to 4 days ago started having severe pain mostly in the left side of her back radiating around to the left front of the abdomen. Patient's had some nausea but no vomiting. She denies urinary symptoms. She denies pain rating down her legs. She denies weakness in her extremities. Patient has history of chronic back pain due to arthritis and fibromyalgia. She is in pain management. Patient has been using Percocet for pain which seems to take the edge off but still complains of severe pain at this time. She is not had pain like this before. Prior similar symptoms: No PFSH PFSH Medical History (Reviewed 01/30/21 @ 14:24 by Santiago Ortega FAGOTING MACHINE OPERATOR, FAGOTING MACHINE OPERATOR-C) Arthritis Atherosclerosis of coronary artery of [place] heart without angina pectoris Brain tumor Chronic low back pain Chronic low back pain Chronic narcotic use Essential (primary) hypertension Fibromyalgia Fibromyalgia GERD (gastroesophageal reflux disease) GERD (gastroesophageal reflux disease) History of non-ST elevation myocardial infarction (NSTEMI) (05/01/19) HLD (hyperlipidemia) Leg cramps Neuropathy Neuropathy Obesity (BMI 30.0-34.9) Osteoarthritis Plantar fasciitis Stomach ulcer Tobacco dependence in remission Tobacco dependence in remission Unstable angina Home Medications citalopram 20 mg PO QHS 02/18/16 [History Last Taken 04/30/19] aspirin 81 mg PO DAILY@0800 #30 tab 04/12/19 [Rx Last Taken 08/02/20] ticagrelor 90 mg tablet 90 mg PO BID #180 tab 11/28/20 [Rx Last Taken Unknown] albuterol sulfate 90 mcg/actuation aerosol inhaler 2 puff INHALATION .PRN PRN g 01/30/21 [History Last Taken Unknown] baclofen 5 mg tablet 5 mg PO .PRN tab 01/30/21 [History Last Taken Unknown] furosemide 20 mg tablet 20 mg PO .PRN tab 01/30/21 [History Last Taken Unknown] gabapentin 300 mg capsule 300 mg PO BID 01/30/21 [History Last Taken Unknown] oxycodone-acetaminophen 7.5 mg-325 mg tablet 1 tab PO .PRN PRN tab 01/30/21 [History Last Taken Unknown] isosorbide mononitrate 60 mg tablet,extended release 24 hr 60 mg PO BID #180 tab 02/01/21 [Rx Last Taken Unknown] losartan 100 mg tablet 100 mg PO DAILY #90 tab 02/01/21 [Rx Last Taken Unknown] metoprolol succinate 25 mg tablet,extended release 24 hr 25 mg PO DAILY #90 tab 02/01/21 [Rx Last Taken Unknown] nitroglycerin 0.4 mg sublingual tablet 0.4 mg SL PRN PRN #25 tab.subl 02/01/21 [Rx Last Taken Unknown] pantoprazole 20 mg tablet,delayed release 20 mg PO DAILY #90 tab 02/01/21 [Rx Last Taken Unknown] ranolazine 1,000 mg tablet,extended release,12 hr 1,000 mg PO BID #180 tab 02/01/21 [Rx Last Taken Unknown] Allergy/AdvReac Type Severity Reaction Status Date / Time isometheptene [From Midrin] Allergy shaking Verified 05/14/21 13:07 Sulfa (Sulfonamide Allergy throat Verified 05/14/21 13:07 Antibiotics) Swelling ezetimibe [From Zetia] AdvReac Severe Pain in Verified 05/14/21 13:07 joints Tyczycl-SXY-MwF Reductase AdvReac Severe myalgias Verified 05/14/21 13:07 Inhibitor [Cfyujeb-Cjm-Xqq Reductase Inhibitor] codeine AdvReac Nausea/Vom/ Verified 05/14/21 13:07 Diarrhea dichloralphenazone AdvReac shaking Verified 05/14/21 13:07 [From Midrin] fish oil AdvReac Other Verified 05/14/21 13:07 ibuprofen AdvReac stomachache Verified 05/14/21 13:07 s topiramate [From Topamax] AdvReac I felt Verified 05/14/21 13:07 crazy Family History Grandmother Hypertension Father CVA (cerebral vascular accident) Heart disease Mother Hypertension Cancer Brother Cancer Sister Hypertension Surgical History (Reviewed 01/30/21 @ 14:24 by Santiago Ortega FAGOTING MACHINE OPERATOR, FAGOTING MACHINE OPERATOR-C) H/O coronary artery bypass surgery (2006) H/O laminectomy History of bladder surgery History of coronary artery stent placement (05/02/19) History of craniotomy History of fusion of cervical spine History of hysterectomy History of laparoscopic cholecystectomy History of left heart catheterization (08/02/20) Social History (Reviewed 01/30/21 @ 14:24 by Santiago Ortega FAGOTING MACHINE OPERATOR, FAGOTING MACHINE OPERATOR-C) Smoking Status: Former smoker alcohol intake: never substance use type: does not use ROS ROS ED Constitutional Constitutional ED: Reports systems reviewed and no addt'l complaints, except as documented; Denies body ache(s), change in weight or chills Eyes Eyes: Denies acute decrease in peripheral vision, change in vision, double vision or loss of vision ENT ENT ED: Reports none; Denies ear pain, lip swelling, loss taste/smell, neck pain, otalgia or sore throat Cardiovascular Cardiovascular: Reports none; Denies abdominal pain, chest pain with activity, leg edema, lightheadedness, palpitations, rapid heart rate or syncope Respiratory/Chest Respiratory/Chest: Reports none; Denies change in mental status, dry cough, dyspnea, hemoptysis, shortness of breath at rest or shortness of breath with exertion Gastrointestinal Gastrointestinal: Reports none, abdominal pain and nausea; Denies change in stool character, diarrhea, hematemesis, hematochezia, melena, rectal bleeding or vomiting Genitourinary Genitourinary ED: Reports none; Denies abdominal discomfort, anuria, dysuria, genital pain or polyuria Musculoskeletal Musculoskeletal: Reports none and back pain; Denies arthralgias, difficulty walking, extremity pain, muscle weakness or myalgias Integumentary Reports none; Denies abscess or rash Neurologic Neurologic: Reports none; Denies abnormal gait, confusion, focal weakness, frequent falls, headache(s), loss of vision, numbness, paresthesias, radicular pain, vertigo or weakness Psychiatric Psychiatric: Reports systems reviewed and no addt'l complaints, except as documented and none; Denies behavioral changes, confusion, difficulty concentrating, hallucinations, suicidal ideation, tactile hallucinations or visual hallucinations Endocrine Endocrinology: Denies none, cold intolerance, excessive sweating, fatigue or heat intolerance Hematologic/Lymphatic Hematologic/Lymphatic: Reports none; Denies anemia, easy bleeding or easy bruising Allergic/Immunologic Allergic/Immunologic ED: Denies as per HPI, none, lip swelling, mouth swelling, throat swelling, tongue swelling or hives EXAM Physical Exam Const Vital Signs: 05/14/21 13:04 Temperature 97.2 F L Temperature Source Temporal Pulse Rate 72 Respiratory Rate 18 Blood Pressure 179/77 H Blood Pressure Mean 111 Pulse Ox 91 Oxygen Delivery Method Room Air Positive well nourished and well developed General Appearance ED: well developed and NAD HEENT Reports TM's clear and moist mucous membranes normocephalic and atraumatic; Negative for trauma or tenderness Tympanic Membrane ED: Yes TM's clear Eyes PERRL and EOMs intact bilaterally General Eye ED: Negative for pale conjunctiva or scleral icterus Neck no lymphadenopathy, supple and no JVD General: Negative for tenderness Chest Wall inspection of chest normal and palpation of chest normal Chest: Negative for tenderness Resp normal respiratory effort and clear to auscultation bilaterally Effort and Inspection: Negative for respiratory distress or pain with movement Auscultation: Negative for rhonchi, wheezes or diminished lung sounds Cardio regular rate, regular rhythm, S1 normal heart sound, S2 normal heart sound and no murmurs Peripheral Pulses: pulses 2+ throughout GI normal to inspection, nondistended, normoactive bowel sounds, soft to palpation, non-distended and no masses GI Narrative: Patient has tenderness palpation over the left upper quadrant and left lower quadrant with guarding. There is no rebound, rigidity, or peritoneal signs. Back/Spine no CVA tenderness and no thoracic nor lumbar tenderness Back/Spine Narrative: Patient has no tenderness over the thoracic or lumbar spine. She does have tenderness palpation over the left lumbar paraspinal musculature and she has CVA tenderness on the left. Patient has negative straight leg raises. Deep tendon reflexes are plus 2 out of 4 bilaterally at the patella and Achilles. Patient has normal 5 extension. Patient has normal sensation to light touch. Extremity normal to inspection General Extremety ED: Negative for edema General Extremity: Negative for edema Neuro oriented x3, CN's II-XII intact bilaterally, no sensory deficits noted and gait normal Sensorium / Orientation: awake, alert, oriented to person, oriented to place and oriented to time Motor Exam: strength 5/5 throughout and strength abnormal Psych mental status grossly normal Skin no rashes or lesions noted and no wounds MDM MDM MDM Narrative Medical decision making narrative: IV line established. Patient was given morphine and Zofran and had minimal relief with that. She was then ordered milligram of Dilaudid. Etiology of her pain is unclear at this time. Case will be discussed with hospitalist to evaluate patient for admission for intractable back pain. She is not having radiculopathic symptoms or any red flags for cauda equina therefore I do not feel emergent MRI is indicated at this time. Lab Data Attestation: I reviewed the patient's lab results. Labs: Laboratory Results - last 24 hr 05/14/21 05/14/21 05/14/21 14:15 14:15 14:55 WBC 7.4 RBC 3.57 L Hgb 11.5 L Hct 34.4 L MCV 96.4 MCH 32.2 H MCHC 33.4 RDW Std Deviation 43.2 RDW Coeff of Fredo 12.2 Plt Count 263 MPV 10.2 Immature Gran % (Auto) 0.400 Neut % (Auto) 67.1 Lymph % (Auto) 20.4 [place] % (Auto) 9.5 Eos % (Auto) 2.2 Baso % (Auto) 0.4 Absolute Neuts (auto) 4.9 Absolute Lymphs (auto) 1.50 Nucleated RBC % 0 Sodium 141 Potassium 4.2 Chloride 106 Carbon Dioxide 27.0 Anion Gap 8 BUN 11 Creatinine 0.78 Estim Creat Clear Calc 41.97 Est GFR (MDRD) Af Amer 93 Est GFR (MDRD) Non-Af 77 BUN/Creatinine Ratio 14.2 Glucose 96 Calcium 8.5 Urine Color Yellow Urine Clarity Clear Urine pH 6.5 Ur Specific [place] 1.010 Urine Protein Negative Urine Glucose (UA) Normal Urine Ketones Negative Urine Occult Blood Negative Urine Nitrite Negative Urine Bilirubin Negative Urine Urobilinogen 4 H Ur Leukocyte Esterase Negative Urine RBC 0 SEEN Urine WBC 0 SEEN Ur Squamous Epith Cells 0-5 SEEN Urine Bacteria 0 SEEN Urine Mucus 0 SEEN Radiography Diagnostic Testing: Clinical Impression(s) from Imaging Studies Abdomen/Pelvis CT 05/14/21 15:10 IMPRESSION: Colonic diverticulosis. No obstruction or abscess. Infrarenal abdominal aortic aneurysm. Electronically Signed: Jonathan Niño MD at 16:21 EST , Service support , Discharge Plan Dx/Rx/DC Orders Clinical Impression: Intractable back pain Disposition Disposition: Acute Care Hospital [facility]
[2021-05-14] MEDS: 0.9% Normal Saline 1,000 ML 150 ML IV (15:17)
[2021-05-14] MEDS: Ondansetron 4 MG/2 ML Vial IV (15:17)
[2021-05-14] MEDS: Morphine 4 MG/ML Syringe IV (15:17)
[2021-05-14 15:43] LABS: Absolute Neutrophil Count 4.9 X10^3/uL (2.0-7.7); Basophil# 0.03 X10^3/uL; Basophil% 0.4 % (0-1); Eosinophil# 0.16 X10^3/uL; Eosinophils% 2.2 % (0-5); Hematocrit 34.4 % (37-47); Hemoglobin 11.5 g/dL (12.0-15.0); Lymphocyte % 20.4 % (19-41); Mean Corp Hgb Conc 33.4 g/dL (32-36); Mean Corpuscular Hgb 32.2 pg (27.0-32.0); Mean Corpuscular Volume 96.4 fL (81-99); Mean Platelet Vol. 10.2 fl (6.2-12.0); Monocyte% 9.5 % (0-10); NRBC Flagged by Analyzer 0 % (0-5); Neutrophil # 4.94 X10^3/uL (2.7-7.7); Neutrophil % 67.1 % (47-70); Platelet Count 263 K/mm3 (150-450); RBC Distribution Width CV 12.2 % (11.6-14.6); RBC Distribution Width SD 43.2 fl (35.1-43.9); Red Blood Count 3.57 M/mm3 (4.2-5.4); White Blood Count 7.4 K/mm3 (4.4-11.0)
[2021-05-14 15:55] LABS: Anion Gap 8 (5-15); BUN 11 mg/dL (7-18); BUN/Creat Ratio 14.2 RATIO (10-20); Calcium,Total 8.5 mg/dL (8.5-10.1); Chloride 106 mmol/L (98-107); Creatinine, Serum 0.78 mg/dL (0.55-1.02); EST Glomerular Filtration Rate 77 mL/min (>60); Est Glom Filt Rate - Afr Amer 93 mL/min (>60); Estimated Creatinine Clearance 41.97 ml/min; Glucose 96 mg/dL (74-106); Potassium 4.2 mmol/L (3.5-5.1); Sodium Level 141 mmol/L (136-145)
[2021-05-14 16:19] LABS: Bacteria 0 SEEN /hpf (None Seen); Mucous, Urine 0 SEEN /hpf (<or=2+); Red Blood Cells-Urine 0 SEEN /hpf (0-5); White Blood Cells 0 SEEN /hpf (0-5)
[2021-05-14 16:20] LABS: Color, Urine Yellow (Yellow); Glucose, Dipstick Normal (Normal); Ketone-Dipstick Negative (Negative); Leukocyte Esterase-Dipstick Negative /ul (Negative); Nitrite-Dipstick Negative (Negative); Occult Blood-Urine Negative /ul (Negative); Protein-Dipstick Negative (Negative); Urine Bilirubin Dipstick Negative (Negative); Urine Clarity Clear (Clear); Urine Urobilinogen 4 mg/dl (Normal); Urine pH 6.5 (5.0 - 8.0)
[2021-05-14 16:37] LABS: Squamous Epithelial Cells - UA 0-5 SEEN /hpf (5-10)
--- NOTE | 2021-05-14 17:06 | NURSING ---
DR FANG FOR ER DOC
--- NOTE | 2021-05-14 17:15 | PCM.HP.STD ---
HPI - General General Date of Admission: 05/14/21 Date of Service: 05/14/21 Chief Complaint: Intractable back pain, acute on chronic HPI Narrative The patient is a 76 y/o F w/ PMHx: OA, CAD s/p CABG 2006 and PCI 04/2019, Hx Tobacco use, GERD w/ Hx Gastric Ulcer/GI bleed, HTN, HLD, Chronic neuropathy w/ Chronic lumbar back pain following w/ Dr. Charles, Hx Brain tumor unclear type s/p craniotomy who presents to the [facility] ED on 05/14/21 with history of 05/01/21 + COVID testing with history of onset of symptoms, mild prior to this with history of immunization against COVID with 5 to series but she had yet to have her booster with onset near that time of mild back discomfort however it has been more severe over the last 3 to 4 days with bilateral discomfort, worse in the left side however and she does note that it radiates primarily around the abdomen from the lower lumbar regions, left again worse than right with associated nausea with no emesis with inability to sleep over the last 3 days secondary to severity of pain which she describes as constant, dull aching, rated 5-6 out of 10 in severity currently with no recent alteration in urination or defecation pattern and no rashes to that region. Work-up in the ED included T 97.5, heart rate 78, BP 160/81, respiratory rate 16, 99% on room air, CBC with WC 7.4, hemoglobin 11.5, platelet 263 without marked shift, unremarkable BMP, unremarkable urinalysis with no obvious evidence of UTI, CT abdomen pelvis with colonic diverticulosis with no evidence of any obstruction or abscess, evidence of an infrarenal abdominal aortic aneurysm. In the ED patient administered IV morphine and IV Dilaudid. [facility] Medical History Arthritis Atherosclerosis of coronary artery of [place] heart without angina pectoris Brain tumor Chronic low back pain Chronic low back pain Chronic narcotic use Essential (primary) hypertension Fibromyalgia Fibromyalgia GERD (gastroesophageal reflux disease) GERD (gastroesophageal reflux disease) History of non-ST elevation myocardial infarction (NSTEMI) (05/01/19) HLD (hyperlipidemia) Leg cramps Neuropathy Neuropathy Obesity (BMI 30.0-34.9) Osteoarthritis Plantar fasciitis Stomach ulcer Tobacco dependence in remission Tobacco dependence in remission Unstable angina Home Medications citalopram 20 mg PO QHS 02/18/16 [History Last Taken 05/13/21] aspirin 81 mg PO DAILY@0800 #30 tab 04/12/19 [Rx Last Taken 05/13/21] baclofen 5 mg tablet 5 mg PO DAILY PRN PRN tab 01/30/21 [History Last Taken 1 Week Ago ~05/07/21] furosemide 20 mg tablet 20 mg PO DAILY PRN PRN tab 01/30/21 [History Last Taken Unknown] gabapentin 300 mg capsule 300 mg PO BID 01/30/21 [History Last Taken 05/13/21] oxycodone-acetaminophen 7.5 mg-325 mg tablet 1 tab PO 4X/DAY PRN tab 01/30/21 [History Last Taken 05/14/21] isosorbide mononitrate 60 mg tablet,extended release 24 hr 60 mg PO BID #180 tab 02/01/21 [Rx Last Taken 05/14/21] losartan 100 mg tablet 100 mg PO DAILY #90 tab 02/01/21 [Rx Last Taken 05/14/21] metoprolol succinate 25 mg tablet,extended release 24 hr 25 mg PO DAILY #90 tab 02/01/21 [Rx Last Taken 05/14/21] nitroglycerin 0.4 mg sublingual tablet 0.4 mg SL PRN PRN #25 tab.subl 02/01/21 [Rx Last Taken Unknown] ranolazine 1,000 mg tablet,extended release,12 hr 1,000 mg PO BID #180 tab 02/01/21 [Rx Last Taken 05/14/21] ticagrelor 90 mg PO BID 05/14/21 [History Last Taken 05/14/21] zinc sulfate 50 mg PO DAILY@1200 05/14/21 [History Last Taken 05/13/21] Allergy/AdvReac Type Severity Reaction Status Date / Time isometheptene [From Midrin] Allergy shaking Verified 05/14/21 13:07 Sulfa (Sulfonamide Allergy throat Verified 05/14/21 13:07 Antibiotics) Swelling ezetimibe [From Zetia] AdvReac Severe Pain in Verified 05/14/21 13:07 joints Gbqjopb-WDH-JuY Reductase AdvReac Severe myalgias Verified 05/14/21 13:07 Inhibitor [Djyexdq-Jca-Vpy Reductase Inhibitor] codeine AdvReac Nausea/Vom/ Verified 05/14/21 13:07 Diarrhea dichloralphenazone AdvReac shaking Verified 05/14/21 13:07 [From Midrin] fish oil AdvReac Other Verified 05/14/21 13:07 ibuprofen AdvReac stomachache Verified 05/14/21 13:07 s topiramate [From Topamax] AdvReac I felt Verified 05/14/21 13:07 crazy Family History Grandmother Hypertension Father CVA (cerebral vascular accident) Heart disease Mother Hypertension Cancer Brother Cancer Sister Hypertension Surgical History H/O coronary artery bypass surgery (2006) H/O laminectomy History of bladder surgery History of coronary artery stent placement (05/02/19) History of craniotomy History of fusion of cervical spine History of hysterectomy History of laparoscopic cholecystectomy History of left heart catheterization (08/02/20) Social History (Updated 05/14/21 @ 17:[address] Telma Hamlin MD) household members: spouse Smoking Status: Former smoker how long ago did patient quit smoking: Quit 15 years prior, prior 1-1.5 ppd since teen. alcohol intake: never substance use type: does not use ROS ROS Narrative Admission Review of Systems: CONSTITUTIONAL: No weight loss, fever, chills, + weakness or fatigue. HEENT: Eyes: No visual loss, blurred vision, double vision or yellow sclerae. Ears, Nose, Throat: No hearing loss, sneezing, congestion, runny nose or sore throat. SKIN: No rash or itching, lesions, wounds. CARDIOVASCULAR: No chest pain, chest pressure or chest discomfort, palpitations, edema, orthopnea, syncopal events. RESPIRATORY: No shortness of breath, cough or sputum, wheezing, hemoptysis. GASTROINTESTINAL: + nausea without vomiting, R lateral flank pain, No diarrhea, melena, BRBPR. GENITOURINARY: No dysuria, frequency, urgency or retention. NEUROLOGICAL: + Intractable back pain, radiating toward front BL lumbar region without any paresthesia changes, no change in bowel or bladder or any focal weakness. No headache, dizziness, syncope, paralysis, ataxia, seizure. MUSCULOSKELETAL: + muscle, back pain, joint pain or stiffness. HEMATOLOGIC: + anemia, bleeding or bruising. LYMPHATICS: No enlarged nodes. No history of splenectomy. PSYCHIATRIC: + history of depression or anxiety. ENDOCRINOLOGIC: No reports of sweating, cold or heat intolerance. No polyuria or polydipsia. ALLERGIES: No history of asthma, hives, eczema or rhinitis. Vital Signs Vital Signs Vital Signs: 05/14/21 13:04 Temperature 97.2 F L Temperature Source Temporal Pulse Rate 72 Respiratory Rate 18 Blood Pressure 179/77 H Blood Pressure Mean 111 Pulse Ox 91 Oxygen Delivery Method Room Air Weight Weight: 184 lb Body Mass Index (BMI) 31.6 Physical Exam Narrative Physical Examination: General: Awake, alert, oriented x 3 and cooperative, seated upright in the ED bed, uncomfortable appearing, fatigued Skin: Normal color, normal turgor, no icterus, no cyanosis. HEENT: AT/NC, EOMI, PERRLA, mildly dry MM, no carotid bruits or JVD noted. Lungs: CTA bilaterally, moderate effort, mild decrease BL bases, no rales, ronchi or wheezing. Heart: Regular rate and rhythm; no gallop, rub audible. Abdomen: Soft, obese, mild discomfort to the right flank as well as left flank primarily in lumbar region however does radiate on the right side up to the right upper quadrant with patient history status post cholecystectomy, patient does voluntarily guard and jump with any palpation of the bilateral lower flank and lateral flank paraspinous regions, nondistended, distant normal bowel sounds, no obvious HSM. Extremities: No cyanosis, clubbing, or edema. Neurological: Patient awake, alert, oriented as noted, cognitive function intact; pupils equally reactive to light and accommodation, cranial nerves II-XII grossly normal, moving all 4 extremities, no focal deficits, strength moderately to severely global decrease secondary to acute presentation. Psychiatric: Affect appears uncomfortable, no acute evidence of depressive or anxiety feelings. Results Lab / Micro Data Result Diagrams: 05/14/21 14:15 05/14/21 14:15 Labs: Laboratory Results - last 24 hr 05/14/21 14:15: WBC 7.4, RBC 3.57 L, Hgb 11.5 L, Hct 34.4 L, MCV 96.4, MCH 32.2 H, MCHC 33.4, RDW Std Deviation 43.2, RDW Coeff of Fredo 12.2, Plt Count 263, MPV 10.2, Immature Gran % (Auto) 0.400, Neut % (Auto) 67.1, Lymph % (Auto) 20.4, [place] % (Auto) 9.5, Eos % (Auto) 2.2, Baso % (Auto) 0.4, Absolute Neuts (auto) 4.9, Absolute Lymphs (auto) 1.50, Nucleated RBC % 0 05/14/21 14:15: Sodium 141, Potassium 4.2, Chloride 106, Carbon Dioxide 27.0, Anion Gap 8, BUN 11, Creatinine 0.78, Estim Creat Clear Calc 41.97, Est GFR (MDRD) Af Amer 93, Est GFR (MDRD) Non-Af 77, BUN/Creatinine Ratio 14.2, Glucose 96, Calcium 8.5 05/14/21 14:55: Urine Color Yellow, Urine Clarity Clear, Urine pH 6.5, Ur Specific [place] 1.010, Urine Protein Negative, Urine Glucose (UA) Normal, Urine Ketones Negative, Urine Occult Blood Negative, Urine Nitrite Negative, Urine Bilirubin Negative, Urine Urobilinogen 4 H, Ur Leukocyte Esterase Negative, Urine RBC 0 SEEN, Urine WBC 0 SEEN, Ur Squamous Epith Cells 0-5 SEEN, Urine Bacteria 0 SEEN, Urine Mucus 0 SEEN Radiology Impression Abdomen/Pelvis CT 05/14/21 15:10 IMPRESSION: Colonic diverticulosis. No obstruction or abscess. Infrarenal abdominal aortic aneurysm. Electronically Signed: Jonathan Niño MD at 16:21 EST , Service support , Assessment & Plan Assessment/Plan (1) Intractable back pain: PLAN: The patient is a 76 y/o F w/ PMHx: OA, CAD s/p CABG 2006 and PCI 04/2019, Hx Tobacco use, GERD w/ Hx Gastric Ulcer/GI bleed, HTN, HLD, Chronic neuropathy w/ Chronic lumbar back pain following w/ Dr. Charles, Hx Brain tumor unclear type s/p craniotomy who presents to the [facility] ED on 05/14/21 with history of 05/01/21 + COVID testing with history of onset of symptoms, mild prior to this with history of immunization against COVID with 5 to series but she had yet to have her booster with onset near that time of mild back discomfort however it has been more severe over the last 3 to 4 days with bilateral discomfort, worse in the left side however and she does note that it radiates primarily around the abdomen from the lower lumbar regions. #1. Acute Intractable Back Pain with history of chronic lumbar back pain with neuropathy with fibromyalgia following with pain management: Will admit to [facility], will immediately obtain CTPA to assure this is not a pulmonary embolism prior to initiation of intractable back pain medication, maintain on fall precautions, frequent positioning, if patient does not have any evidence of PE will initiate lidoacine patches, tizanidine, medrol dose pack short-term only especially given chronic antiplatelet therapy and history of prior gastric ulcer with continuation while using PPI to be cautious, increase and schedule gabapentin regimen, po/IV narcotic pain regimen, anti-emetics, bowel regimen. Will consult PT and OT for evaluation as well as Case management for discharge planning. If pain is not improving would then plan to obtain MRI if there is no evidence of pulmonary embolism. #2. Incidental infrarenal abdominal aortic aneurysm: CT abdomen and pelvis with noted 3.4 cm infrarenal aneurysm, will need outpatient continued evaluation and follow-up. #3. CAD: Status post CABG and PCI, will continue aspirin, Brilinta, metoprolol, losartan regimen. #4. Hypertension: Continue home regimen including metoprolol, losartan, isosorbide, Lasix regimen with hold parameters as needed, PRN hydralazine. #5. Hyperlipidemia: Statin allergy noted, encourage continued outpatient follow-up with cardiology. #6. GERD with history of prior gastric ulcer/GI bleed: Will maintain on PPI. #7. History of brain tumor: Unclear specific type, status post craniotomy, considered in remission per discussion. #8. Obesity: Weight loss and lifestyle changes encouraged. #9. Former tobacco use: Encourage continued tobacco cessation. #10. DVT prophylaxis: SCDs, Lovenox; however, if there is evidence of pulmonary emboli will transition to heparin for also anti-inflammatory effect given discomfort pending oral agent investigation. #11. CODE status: Patient and her note that they do intend to set up a healthcare power of document review attorney and living will. They have never actually discussed any CODE STATUS concept therefore reviewed at length including difference between FULL code, DNR-CCA and DNR-CC status. Following discussions about the differences in these status, requested Full Code status. Advanced Care Planning Face to Face Time: 16 minutes. Charges/Coding Visit Charges OBSV E&M: 99023 Initial observation care L3 Procedures Hospitalists Procedures: [id number] Advncd Care Plan 30 Min
[2021-05-14] MEDS: HYDROmorphone 1 MG/ML Syringe IV (17:16)
[2021-05-14 17:18] VITALS: BP 160/81; PULSE 78; RESP 16; TEMP 36.4; O2SAT 99
--- NOTE | 2021-05-14 17:23 | NURSING ---
209 WHITE OBS INTRACTABLE BACK PAIN
--- NOTE | 2021-05-14 17:38 | CT_ITS ---
STUDY: CTA CHEST REASON FOR EXAM: Female, 76 years old. Back pain, suspect PE RADIATION DOSAGE (If Supplied By Facility): CTDIvol = ( 10.80 ) mGy, DLP = ( 392.41 ) mGycm TECHNIQUE: The examination was performed with the intravenous administration of 100mL Isovue-370. Post-processing of the angiographic images was performed, with multiplanar reformation and 3D reconstruction. Individualized dose optimization techniques were used for this CT. COMPARISON: Chest x-ray July 26, 2020. FINDINGS: Normal enhancement of the main pulmonary artery and right and left pulmonary arteries. Normal enhancement of the bilateral peripheral pulmonary arteries. There is no demonstrated pulmonary embolism. There is atherosclerotic calcification of the aortic arch with tortuosity. There is no demonstrated aortic dissection. Sternal cerclage wires are present from a prior sternotomy. Normal mediastinum. Normal hilar regions. Normal visualized trachea and bronchi. The lungs are well expanded. There are mild patchy interstitial increased opacities of the mid and lower lungs on the right more than the left. Normal pleura. Normal chest wall structures. There are degenerative changes of thoracic spine. Normal visualized upper abdomen. CT/CTA Chest W/WO Contrast IMPRESSION: CTA chest examination, without a demonstrated pulmonary embolism or arterial dissection. Right greater than left interstitial infiltrates. Electronically Signed: Jonathan Niño MD at 19:57 EST , Service support ,
[2021-05-14 18:29] VITALS: BMI 32.1
[2021-05-14] MEDS: 0.9% Normal Saline 1,000 ML 100 ML IV (19:07)
[2021-05-14] MEDS: Lidocaine 5% Patch 2 PATCH TOPICAL (19:38)
[2021-05-14] MEDS: tiZANidine HCl 2 MG Tablet 4 MG PO (19:38)
[2021-05-14] MEDS: Gabapentin 400 MG Capsule PO (21:19)
[2021-05-14] MEDS: Pantoprazole Sodium 40 MG Tablet PO (21:19)
[2021-05-14] MEDS: MethylPREDNISolone DosePak 4 MG BOX PO (21:19)
[2021-05-14] MEDS: oxyCODONE 5 MG Tablet 10 MG PO (21:19)
[2021-05-14] MEDS: Citalopram 20 MG Tablet PO (21:19)
[2021-05-14 21:43] VITALS: BP 109/58; PULSE 64; RESP 18; TEMP 36.9; O2SAT 95
[2021-05-15] MEDS: Morphine 4 MG/ML Syringe IV ×3 (00:34→20:53)
[2021-05-15] MEDS: 0.9% Saline Lock 10 ML Syringe IV ×3 (00:34→20:53)
[2021-05-15] MEDS: Ondansetron 4 MG/2 ML Vial IV (00:35)
[2021-05-15 03:47] VITALS: BP 141/78; PULSE 69; RESP 18; TEMP 36.6; O2SAT 94
[2021-05-15] MEDS: 0.9% Normal Saline 1,000 ML 100 ML IV (04:28)
[2021-05-15] MEDS: tiZANidine HCl 2 MG Tablet 4 MG PO ×3 (05:19→20:45)
[2021-05-15] MEDS: Gabapentin 400 MG Capsule PO ×3 (05:19→20:44)
[2021-05-15 07:07] LABS: Absolute Lymphocyte Count 0.67 X10^3/uL (0.83-4.51); Absolute Neutrophil Count 5.8 X10^3/uL (2.0-7.7); Basophil# 0.01 X10^3/uL; Basophil% 0.1 % (0-1); Hematocrit 33.2 % (37-47); Hemoglobin 10.9 g/dL (12.0-15.0); Lymphocyte # 0.67 X10^3/ul (0.83-4.51); Mean Corp Hgb Conc 32.8 g/dL (32-36); Mean Corpuscular Hgb 31.4 pg (27.0-32.0); Mean Corpuscular Volume 95.7 fL (81-99); Monocyte# 0.18 X10^3/uL; Monocyte% 2.7 % (0-10); NRBC Flagged by Analyzer 0 % (0-5); Neutrophil % 86.8 % (47-70); Platelet Count 277 K/mm3 (150-450); RBC Distribution Width CV 12.2 % (11.6-14.6); RBC Distribution Width SD 42.5 fl (35.1-43.9); Red Blood Count 3.47 M/mm3 (4.2-5.4); White Blood Count 6.7 K/mm3 (4.4-11.0)
[2021-05-15 07:32] LABS: ALB/GLOB Ratio 0.7 RATIO (0.9-2.4); AST(SGOT) 10 U/L (15-37); Alanine Aminotransfer ALT/SGPT 17 U/L (13-56); Albumin, Serum 2.6 g/dL (3.2-5.0); Alkaline Phosphatase 73 U/L (45-117); Anion Gap 5 (5-15); BUN 10 mg/dL (7-18); BUN/Creat Ratio 12.6 RATIO (10-20); Calcium,Total 8.4 mg/dL (8.5-10.1); Chloride 110 mmol/L (98-107); Creatinine, Serum 0.79 mg/dL (0.55-1.02); EST Glomerular Filtration Rate 75 mL/min (>60); Est Glom Filt Rate - Afr Amer 91 mL/min (>60); Estimated Creatinine Clearance 41.97 ml/min; Globulin 3.7 g/dL (2.2-4.2); Glucose 164 mg/dL (74-106); Potassium 4.6 mmol/L (3.5-5.1); Protein, Total 6.3 g/dL (6.4-8.2); Sodium Level 141 mmol/L (136-145)
--- NOTE | 2021-05-15 08:49 | EKG12_ITS ---
Test Reason : CP Blood Pressure : / mmHG Vent. Rate : 076 BPM Atrial Rate : 076 BPM P-R Int : 136 ms QRS Dur : 088 ms QT Int : 424 ms P-R-T Axes : 020 032 075 degrees QTc Int : 477 ms Normal sinus rhythm Nonspecific T wave abnormality Prolonged QT Abnormal ECG When compared with ECG of 28-SEP-2019 07:23, Nonspecific T wave abnormality now evident in Lateral leads Confirmed by SCOTT SEXTON, RUKHSANA ([id number]), editorial clerk DEVAUGHN PEREZ ([id number]) on 05/29/2021 10:18:10 AM Referred By: ANNALISA Confirmed By:RUKHSANA CHAVEZ MD
[2021-05-15 09:00] VITALS: BP 195/89; PULSE 80; RESP 16; TEMP 36.8; O2SAT 100
[2021-05-15] MEDS: oxyCODONE 5 MG Tablet 10 MG PO ×2 (09:02→14:04)
[2021-05-15] MEDS: Acetaminophen 325 MG Tablet 650 MG PO ×2 (09:02→14:04)
[2021-05-15] MEDS: MethylPREDNISolone DosePak 4 MG BOX PO ×4 (09:03→20:46)
[2021-05-15 09:04] VITALS: PULSE 80
[2021-05-15] MEDS: Pantoprazole Sodium 40 MG Tablet PO ×2 (09:04→20:44)
[2021-05-15] MEDS: Metoprolol(XL)Succ 25 MG Tablet PO (09:04)
[2021-05-15] MEDS: Aspirin E.C. 81 MG Tablet PO (09:04)
[2021-05-15] MEDS: Losartan Potassium 100 MG Tablet PO (09:04)
[2021-05-15] MEDS: Enoxaparin 40 MG/0.4 ML Syringe SC (09:06)
--- NOTE | 2021-05-15 11:00 | CASEMGMT ---
RN CM FERMENTER HELPER CM to room to meet with patient for initial transition planning/care coordination assessment. PAULINA VILLA introduced self and role at [facility]. Pt voices understanding and consents to assessment at this time. Pt resting in bed in no distress at this time. She states she is painful, but willing to talk w/RN CM and answer questions. Pt is A/O at this time and answers all questions appropriately. Care providers, pharmacy, and demographics verified/updated at this time. PCP: SPENSER Rivers Specialists: Dr Suzette jamil Preferred Pharmacy: [facility] [place] Insurance: Aetna [facility] Prescription Benefit: Yes Living Will/HPOA: Pt does not currently have LW/HCPOA LNOK: , Vincent. 3 daughters and son Living Arrangements: Lives w/ and son in 2-story home. FFSU. 5 steps to enter home. Was independent w/ADL's and IADL's up until recently when back pain flared up. Still able to bath/dress self. able to assist if needed. helps w/IADL's. Transportation: Pt states drives self and states no transportation concerns at this time. also drives. DME: States has the following DME: cane she uses when having pain. Pt states no need for further DME at this time. HHC/SNF: No hx of SNF. Has had HHC in the past after cardiac surgery. Pt wishes to return home and states has no concerns with going home at time of discharge. She denies wanting HHC, stating, I'll be fine once the pain is better. She was made aware, if she decides later that she would like HHC, to discuss this w/her PCP. She voices understanding. PAULINA VILLA did inform pt of insurance requirements of being home-bound to qualify for HHC. CM to follow for any discharge planning/needs. Pt voices no concerns/needs at this time. Advised pt to ask for CM if any further questions/concerns/needs arise. Voices understanding. PLAN: Home w/family support and discharge plans in place. Manuel GEE RN, CM
[2021-05-15 11:07] LABS: Troponin-I HS 8 pg/mL (3.0-54.0)
--- NOTE | 2021-05-15 11:22 | STEWCON_ITS ---
Reason For Study: Chest Pain Stress Results Protocol: Dobutamine Stress Echo With Definity Maximum Predicted HR: 145 bpm Target HR: 123 bpm % Maximum Predicted HR: 89 % DurationHeart Rate Stage (mm:ss) (bpm) BP Comment Baseline 60 154/85 No Chest Pain; 4 ML Diluted Definity DSE 10 MCG 3:23 63 176/78 No Chest Pain DSE 20 MCG 3:10 93 166/78 Mild Chest Pain; Right Posterior Shoulder Pain DSE 30 MCG 3:00 112 203/88 Mod Chest Pain; Right Shoulder Pain DSE 40 MCG 3:43 129 194/106Mod Chest Pain; Right Shoulder Pain; Atropine 0.25 MG IVP Recovery 78 130/70 Mild Chest Pain; Mod Right Shoulder Pain Stress Duration: 13:16 mm:ss Maximum Stress HR: 129 bpm METS: 1 Baseline Echocardiogram Findings Stress Echo Wall motion Data Resting WM Intermediate WM Stress WM Doppler Measurements & Calculations TR max chavez: 296.1 cm/sec TR max P.1 mmHg ECHO/Stress Test Echo W/Contrast Interpretation Summary Dobutamine stress echocardiogram. Resting EKG demonstrates normal sinus rhythm with a rate of 62 bpm normal inter vals are noted resting blood pressure is 154/84 mmHg. Dobutamine was infused starting at 10 mc g/kg/min increasing in 3-minute aliquots to a peak of 40 mcg/kg/min. 0.25 mg of atropine was admini stered at peak infusion to augment heart rate. The maximum heart rate attained was 129 bpm whi ch was 89% of max impact at heart rate the maximum workload was 1 metabolic equivalent. At rest t here were nonspecific ST changes noted at peak infusion upsloping ST changes were noted with did not meet the criteria for ischemia. Occasional premature ventricular complex was noted nonspecific ST ralph nges were noted. The peak blood pressure was 203/88 mmHg which was a hypertensive response to infusi on. The patient had a mild to moderate chest discomfort and right shoulder discomfort noted throughou t. Dobutamine stress echocardiogram. Resting and stress dobutamine echocardiogram were performed with Definity enhancement. The resting ejection fraction was noted to be approximate ly 55% with mild mid anterior hypokinesis noted. At low-dose there was improvement of all lackey and at peak dose there was improvement of all lackey with persistent hypokinesis noted of the mid anter ior wall. There was improvement in the ejection fraction to approximately 65%. The above is not dave gnostic of ischemia in this territory. Conclusion: Dobutamine stress echocardiogram with adequate augmentation of all lackey except for mild hypokinesis of the mid anterior wall at rest and with peak infusion. Ischemia cannot be com pletely excluded but less likely. Ordering Physician: Marylu Cisneros Referring Physician: Dez Smith Performed By: Maxine Flores, RDCS, RVT
--- NOTE | 2021-05-15 11:22 | CASEMGMT ---
RN CM NEUROLOGY NURSE CM to room to meet with patient for initial transition planning/care coordination assessment. PAULINA VILLA introduced self and role at [facility]. Pt voices understanding and consents to assessment at this time. Pt resting in bed in no distress at this time. She states she is painful, but willing to talk w/RN DAISY and answer questions. Pt is A/O at this time and answers all questions appropriately. Care providers, pharmacy, and demographics verified/updated at this time. PCP: SPENSER Rivers Specialists: Dr Charles-tia jamil Preferred Pharmacy: [facility] [place] Insurance: Aetna [facility] Prescription Benefit: Yes Living Will/HPOA: Pt does not currently have LW/HCPOA LNOK: , Vincent. 3 daughters and son Living Arrangements: Lives w/ and son in 2-story home. FFSU. 5 steps to enter home. Was independent w/ADL's and IADL's up until recently when back pain flared up. Still able to bath/dress self. able to assist if needed. helps w/IADL's. Transportation: Pt states drives self and states no transportation concerns at this time. also drives. DME: States has the following DME: cane she uses when having pain. Pt states no need for further DME at this time. HHC/SNF: No hx of SNF. Has had HHC in the past after cardiac surgery. Pt wishes to return home and states has no concerns with going home at time of discharge. She denies wanting HHC, stating, I'll be fine once the pain is She was made aware, if she decides later that she would like HHC, to discuss this w/her PCP. She voices understanding. PAULINA VILLA did inform pt of insurance requirements of being home-bound to qualify for HHC. CM to follow for any discharge planning/needs. Pt voices no concerns/needs at this time. Advised pt to ask for CM if any further questions/concerns/needs arise. Voices understanding. PLAN: Manuel GEE RN, CM
--- NOTE | 2021-05-15 12:41 | NURSING ---
at 0900 pt called out c/o chest pain. upon entering room, pt tells this RN that her chest really hurts and she probably needs to take her nitro. vitals obtained, notified, EKG obtained, nitro ordered but it took pharmacy up to an hour to get med verified and sent to unit so pt took own med from home. aware.
[2021-05-15 13:00] VITALS: BP 182/82; PULSE 71; RESP 16; TEMP 36.6; O2SAT 100
[2021-05-15 13:36] LABS: Troponin-I HS 16 pg/mL (3.0-54.0)
--- NOTE | 2021-05-15 15:01 | PN.HOSP_ITS ---
Subjective Subjective Patient seen and examined. She complains of chest pain which has been going on intermittently for some weeks, and says it is relieved by SL nitroglycerin. She was admitted for intractable back pain. She still complains of the back pain this morning, in addition to her chest pain. Objective Data Objective Data Vital Signs: Vital Signs Temp Pulse Resp BP Pulse Ox 97.8 F 71 16 182/82 H 100 05/15/21 13:00 05/15/21 13:00 05/15/21 13:00 05/15/21 13:00 05/15/21 13:00 Oxygen Delivery Method Room Air Weight: 183 lb 6.793 oz Body Mass Index (BMI) 32.1 Intake & Output: Intake and Output for Last 24 Hours 05/13/21 05/14/21 05/15/21 23:59 23:59 23:59 Intake Total 975 / 975 1638.33 / 1638.33 Balance 975 / 975 1638.33 / 1638.33 Lab / Micro Data Result Diagrams: 05/15/21 06:42 05/15/21 06:42 Labs: Laboratory Results - last 24 hr 05/14/21 14:15: WBC 7.4, RBC 3.57 L, Hgb 11.5 L, Hct 34.4 L, MCV 96.4, MCH 32.2 H, MCHC 33.4, RDW Std Deviation 43.2, RDW Coeff of Fredo 12.2, Plt Count 263, MPV 10.2, Immature Gran % (Auto) 0.400, Neut % (Auto) 67.1, Lymph % (Auto) 20.4, Barbour % (Auto) 9.5, Eos % (Auto) 2.2, Baso % (Auto) 0.4, Absolute Neuts (auto) 4.9, Absolute Lymphs (auto) 1.50, Nucleated RBC % 0 05/14/21 14:15: Sodium 141, Potassium 4.2, Chloride 106, Carbon Dioxide 27.0, Anion Gap 8, BUN 11, Creatinine 0.78, Estim Creat Clear Calc 41.97, Est GFR (MDRD) Af Amer 93, Est GFR (MDRD) Non-Af 77, BUN/Creatinine Ratio 14.2, Glucose 96, Calcium 8.5 05/14/21 14:55: Urine Color Yellow, Urine Clarity Clear, Urine pH 6.5, Ur Specific [place] 1.010, Urine Protein Negative, Urine Glucose (UA) Normal, Urine Ketones Negative, Urine Occult Blood Negative, Urine Nitrite Negative, Urine Bilirubin Negative, Urine Urobilinogen 4 H, Ur Leukocyte Esterase Negative, Urine RBC 0 SEEN, Urine WBC 0 SEEN, Ur Squamous Epith Cells 0-5 SEEN, Urine Bacteria 0 SEEN, Urine Mucus 0 SEEN 05/15/21 06:42: WBC 6.7, RBC 3.47 L, Hgb 10.9 L, Hct 33.2 L, MCV 95.7, MCH 31.4, MCHC 32.8, RDW Std Deviation 42.5, RDW Coeff of Fredo 12.2, Plt Count 277, MPV 10.0, Immature Gran % (Auto) 0.400, Neut % (Auto) 86.8 H, Lymph % (Auto) 10.0 L, Barbour % (Auto) 2.7, Eos % (Auto) 0.0, Baso % (Auto) 0.1, Absolute Neuts (auto) 5.8, Absolute Lymphs (auto) 0.67 L, Nucleated RBC % 0 05/15/21 06:42: Sodium 141, Potassium 4.6, Chloride 110 H, Carbon Dioxide 26.0, Anion Gap 5, BUN 10, Creatinine 0.79, Estim Creat Clear Calc 41.97, Est GFR (MDRD) Af Amer 91, Est GFR (MDRD) Non-Af 75, BUN/Creatinine Ratio 12.6, Glucose 164 H, Calcium 8.4 L, Total Bilirubin 0.30, AST 10 L, ALT 17, Alkaline Phosphatase 73, Total Protein 6.3 L, Albumin 2.6 L, Globulin 3.7, Albumin/Globulin Ratio 0.7 L 05/15/21 10:40: Troponin I High Sens 8 05/15/21 13:05: Troponin I High Sens 16 Radiography Diagnostic Testing: Radiology Impression Abdomen/Pelvis CT 05/14/21 15:10 IMPRESSION: Colonic diverticulosis. No obstruction or abscess. Infrarenal abdominal aortic aneurysm. Electronically Signed: Jonathan Niño MD at 16:21 EST , Service support , Chest CTA 05/14/21 17:38 IMPRESSION: CTA chest examination, without a demonstrated pulmonary embolism or arterial dissection. Right greater than left interstitial infiltrates. Electronically Signed: Jonathan Niño MD at 19:57 EST , Service support , Stress Echocardiogram 05/15/21 11:22 Interpretation Summary Dobutamine stress echocardiogram. Resting EKG demonstrates normal sinus rhythm with a rate of 62 bpm normal intervals are noted resting blood pressure is 154/84 mmHg. Dobutamine was infused starting at 10 mcg/kg/min increasing in 3-minute aliquots to a peak of 40 mcg/kg/min. 0.25 mg of atropine was administered at peak infusion to augment heart rate. The maximum heart rate attained was 129 bpm which was 89% of max impact at heart rate the maximum workload was 1 metabolic equivalent. At rest there were nonspecific ST changes noted at peak infusion upsloping ST changes were noted with did not meet the criteria for ischemia. Occasional premature ventricular complex was noted nonspecific ST changes were noted. The peak blood pressure was 203/88 mmHg which was a hypertensive response to infusion. The patient had a mild to moderate chest discomfort and right shoulder discomfort noted throughout. Dobutamine stress echocardiogram. Resting and stress dobutamine echocardiogram were performed with Definity enhancement. The resting ejection fraction was noted to be sam roximately 55% with mild mid anterior hypokinesis noted. At low-dose there was improvement of all lackey and at peak dose there was improvement of all lackey with persistent hypokinesis noted of the mid anterior wall. There was improvement in the ejection fraction to approximately 65%. The above is not diagnostic of ischemia in this territory. Conclusion: Dobutamine stress echocardiogram with adequate augmentation of all lackey except for mild hypokinesis of the mid anterior wall at rest and with peak infusion. Ischemia cannot be completely excluded but less likely. Ordering Physician: Marylu Cisneros Referring Physician: Dez Smith Performed By: Maxine Flores, RDCS, RVT Physical Exam Const alert, oriented x3 and no apparent distress Exam Limitations: no limitations HEENT head/scalp atraumatic and moist oral mucous membranes Head and Scalp: normocephalic Eyes PERRL, EOMs intact bilaterally and conjunctivae normal Neck no lymphadenopathy, supple and no JVD Resp normal respiratory effort, no retractions, no use of accessory muscles and clear to auscultation bilaterally Cardio regular rate, regular rhythm, S1 normal heart sound, S2 normal heart sound and no murmurs GI normal to inspection, nondistended, normoactive bowel sounds, soft to palpation, non-tender, non-distended and hepatosplenomegaly Extremity normal to inspection, full ROM and no clubbing, cyanosis or edema Peripheral Pulses: Yes pulses 2+ throughout Skin no rashes or lesions noted Neuro oriented x3, CN's II-XII intact bilaterally and moves all extremities Sensorium / Orientation: awake and alert Psych affect normal Assessment & Plan Assessment/Plan (1) Intractable back pain: PLAN: #Intractable back pain * patient has a history of fibromyalgia and chronic lumbar back pain. Says pain has been worse than usual. * CTA of chest negative for PE * she says she hasnt had a bowel movement for 3 days prior to admission; this may be contributiing to her back pain * will give soap suds enema to help with bowel movement; if this doesnt help with back pain, will get MRI of her lumbar spine. * PT/OT on board. * fall precautions * #Chest pain * has a history of CAD s/p CABG in 2006, with stents iin 04/06 and instent restenosis in 04/2020 * She complains of chest pain which is only relieved by sublingual nitroglycerin * EKG shows no acute ST changes. I discussed this with her health facilities surveyor Dr. Francis in light of her extensive cardiac history * Per discussion with Dr. Smith, stress echo with dobutamine ordered for today which showed no evidence of any acute ischemia. * Patient on aspirin, statin and Imdur as well as Brilinta and ranolazine * #Abdominal aortic aneurysm: * This was an incidental finding on CT abdomen and pelvis. * Measure 3.4 cm in diameter. * Will need to follow-up with PCP on outpatient basis. * #CAD s/p CABG and PCI: As above under chest pain #Hypertension: Continue metoprolol, losartan and Imdur. #Hyperlipidemia: Not on statin due to noted allergy. #GERD: S/p PPI #History of brain tumor: Status post craniotomy. DVT prophylaxis: lovenox # Charges/Coding Visit Charges OBSV E&M: 69135 Subsequent observation care L2
--- NOTE | 2021-05-15 15:03 | CASEMGMT ---
PAULINA VILLA NOTE: PAULINA VILLA to room. JIMENEZ form explained re: to pt and her , who is at bedside, Observation status for treatment of intractable back pain. Explained hospitalization will be paid per her insurance policy for Outpatient billing and condition will continue to be evaluated for Inpt necessity. Also let pt know that [facility] sends paper in the billing packet with their phone number if questions arise. Pt and verbalize understanding and do not have further questions. Form signed, copy made and placed in chart, and original given to pt. Manuel GEE RN, CM
[2021-05-15] MEDS: Senna/Docusate Sodium 1 Tablet 2 TABLET PO (15:33)
[2021-05-15 16:59] LABS: Troponin-I HS 74 pg/mL (3.0-54.0)
[2021-05-15 17:00] VITALS: BP 133/71; PULSE 60; RESP 16; TEMP 36.7; O2SAT 93
[2021-05-15 20:39] VITALS: BP 154/74; PULSE 66; RESP 18; TEMP 36.8; O2SAT 97
[2021-05-15] MEDS: Citalopram 20 MG Tablet PO (20:45)
[2021-05-15] MEDS: Lidocaine 5% Patch 2 PATCH TOPICAL (20:47)
[2021-05-15] MEDS: Ranolazine 500 MG Tablet 1000 MG PO (20:51)
[2021-05-15] MEDS: Isosorbide Mononitrate 60 MG Tablet PO (20:52)
[2021-05-15] MEDS: TICAGRELOR 90 MG TABLET PO (20:52)
[2021-05-16] MEDS: tiZANidine HCl 2 MG Tablet 4 MG PO (05:24)
[2021-05-16] MEDS: Acetaminophen 325 MG Tablet 650 MG PO ×2 (05:24→13:24)
[2021-05-16] MEDS: Gabapentin 400 MG Capsule PO ×2 (05:24→13:20)
[2021-05-16] MEDS: oxyCODONE 5 MG Tablet 10 MG PO ×3 (05:25→13:22)
[2021-05-16 05:27] VITALS: BP 153/76; PULSE 60; RESP 18; TEMP 36.6; O2SAT 98
[2021-05-16 07:11] VITALS: O2SAT 96
[2021-05-16] MEDS: Aspirin E.C. 81 MG Tablet PO (08:18)
[2021-05-16] MEDS: MethylPREDNISolone DosePak 4 MG BOX PO ×2 (08:19→12:15)
[2021-05-16 08:56] VITALS: BP 132/68; PULSE 55; RESP 16; TEMP 36.8; O2SAT 96
[2021-05-16 09:32] VITALS: BP 132/78; PULSE 60
[2021-05-16] MEDS: Metoprolol(XL)Succ 25 MG Tablet PO (09:32)
[2021-05-16] MEDS: TICAGRELOR 90 MG TABLET PO (09:32)
[2021-05-16] MEDS: Isosorbide Mononitrate 60 MG Tablet PO (09:33)
[2021-05-16] MEDS: Enoxaparin 40 MG/0.4 ML Syringe SC (09:33)
[2021-05-16] MEDS: Pantoprazole Sodium 40 MG Tablet PO (09:33)
[2021-05-16] MEDS: Losartan Potassium 100 MG Tablet PO (09:34)
[2021-05-16] MEDS: Ranolazine 500 MG Tablet 1000 MG PO (09:34)
[2021-05-16 11:30] VITALS: BP 122/78; PULSE 60; RESP 16; TEMP 36.7; O2SAT 97
--- NOTE | 2021-05-16 13:05 | DS.PCM_ITS ---
Providers Date of Admission: 05/14/21 Primary Care Physician: HENRIK Judge Reason For Visit: INTRACTABLE BACK PAIN Diagnosis Discharge Diagnosis (1) Intractable back pain: Status: Acute Code(s): M54.9 - Dorsalgia, unspecified Medications at Discharge Home Medications citalopram 20 mg PO QHS 02/18/16 aspirin 81 mg PO DAILY@0800 #30 tab 04/12/19 baclofen 5 mg tablet 5 mg PO DAILY PRN PRN tab 01/30/21 furosemide 20 mg tablet 20 mg PO DAILY PRN PRN tab 01/30/21 gabapentin 300 mg capsule 300 mg PO BID 01/30/21 oxycodone-acetaminophen 7.5 mg-325 mg tablet 1 tab PO 4X/DAY PRN tab 01/30/21 isosorbide mononitrate 60 mg tablet,extended release 24 hr 60 mg PO BID #180 tab 02/01/21 losartan 100 mg tablet 100 mg PO DAILY #90 tab 02/01/21 metoprolol succinate 25 mg tablet,extended release 24 hr 25 mg PO DAILY #90 tab 02/01/21 nitroglycerin 0.4 mg sublingual tablet 0.4 mg SL PRN PRN #25 tab.subl 02/01/21 ranolazine 1,000 mg tablet,extended release,12 hr 1,000 mg PO BID #180 tab 02/01/21 ticagrelor 90 mg PO BID 05/14/21 zinc sulfate 50 mg PO DAILY@1200 05/14/21 Hospital Course Operations None Procedures Nuclear stress test Summary of Care Provided Minutes Spent on Discharge: 40 Hospital Course: Patient is a 76 y/o female with a PMH as outlined who was admitted via ED on 05/14/2021 with a complaint of intractable back pain. She did have a history of chronic back pain, but said it had become more severe recently, worse on the left side. She had associated nausea. She said pain radiated around her abdomen. Review of systems otherwise negative. Urinalysis was negative for evidence of UTI and CT of the abdomen pelvis showed colonic diverticulosis with no evidence of obstruction or abscess and there was evidence of an infrarenal abdominal aortic aneurysm. She was admitted to be managed for intractable acute on chronic back pain. CTA of the chest was negative for PE or any evidence of dissection. Patient also complained of chest pain which was relieved by sublingual nitroglycerin. In light of her extensive cardiac history which included CABG in 2007 and stents in the LAD in 2019 with subsequent in- stent restenosis requiring subsequent cardiac cath again, I discussed this with cardiology. Patient had a stress echo which was negative for any evidence of ischemia. Patient's back pain improved but she had pain all over her body and would range from abdominal pain to leg pain to shoulder pain and she admitted that she thought all this pain was due to her fibromyalgia which she needed close follow-up for. Patient remained stable and was discharged on 05/16/2021. During admission, patient did not cooperate with physical therapy and says she did not feel like getting out of bed to have therapy. On the day of discharge, patient said she felt she could do better at home and would have therapy at home and did not want to have any therapy whilst in the hospital. Patient was seen and examined prior to discharge. She had no active complaints and review of systems otherwise negative. Labs and vitals reviewed. Home medication reviewed and reconciled. Physical Exam Const alert, oriented x3 and no apparent distress General Appearance: cooperative, comfortable and well kempt Orientation / Consciousness: awake Exam Limitations: no limitations HEENT normocephalic, head/scalp atraumatic and moist oral mucous membranes Eyes PERRL, EOMs intact bilaterally and conjunctivae normal Neck no lymphadenopathy, supple and no JVD Resp normal respiratory effort, no retractions, no use of accessory muscles and clear to auscultation bilaterally Cardio regular rate, regular rhythm, S1 normal heart sound, S2 normal heart sound and no murmurs GI normal to inspection, nondistended, normoactive bowel sounds, soft to palpation, non-tender, non-distended and hepatosplenomegaly Extremity normal to inspection, full ROM and no clubbing, cyanosis or edema Skin no rashes or lesions noted Neuro oriented x3, CN's II-XII intact bilaterally and moves all extremities Sensorium / Orientation: awake and alert Psych affect normal Weight / BMI Weight Weight: 183 lb 13.848 oz Body Mass Index (BMI) 32.1 ABG / Lab / Microbiology Data Result Diagrams: 05/15/21 06:42 05/15/21 06:42 Laboratory: Laboratory Results - last 24 hr 05/15/21 13:05: Troponin I High Sens 16 05/15/21 16:23: Troponin I High Sens 74 H Radiography Diagnostic Testing: Radiology Impression Stress Echocardiogram 05/15/21 11:22 Interpretation Summary Dobutamine stress echocardiogram. Resting EKG demonstrates normal sinus rhythm with a rate of 62 bpm normal intervals are noted resting blood pressure is 154/84 mmHg. Dobutamine was infused starting at 10 mcg/kg/min increasing in 3-minute aliquots to a peak of 40 mcg/kg/min. 0.25 mg of atropine was administered at peak infusion to augment heart rate. The maximum heart rate attained was 129 bpm which was 89% of max impact at heart rate the maximum workload was 1 metabolic equivalent. At rest there were nonspecific ST changes noted at peak infusion upsloping ST changes were noted with did not meet the criteria for ischemia. Occasional premature ventricular complex was noted nonspecific ST changes were noted. The peak blood pressure was 203/88 mmHg which was a hypertensive response to infusion. The patient had a mild to moderate chest discomfort and right shoulder discomfort noted throughout. Dobutamine stress echocardiogram. Resting and stress dobutamine echocardiogram were performed with Definity enhancement. The resting ejection fraction was noted to be approximately 55% with mild mid anterior hypokinesis noted. At low-dose there was improvement of all lackey and at peak dose there was improvement of all lackey with persistent hypokinesis noted of the mid anterior wall. There was improvement in the ejection fraction to approximately 65%. The above is not diagnostic of ischemia in this territory. Conclusion: Dobutamine stress echocardiogram with adequate augmentation of all lackey except for mild hypokinesis of the mid anterior wall at rest and with peak infusion. Ischemia cannot be completely excluded but less likely. Ordering Physician: Marylu Cisneros Referring Physician: Dez Smith Performed By: Maxine Flores, RDCS, RVT D/C Instructions Discharge Diet: Low fat / Low cholesterol Discharge Activity: Return to Normal Activity Weight Bearing Status: Weight bearing as tolerated Call your doctor if you observe: Fever of 101 or Higher, Shortness of breath, Dizziness, Swelling in the ankles, Chest pain and Increased palpitations (irregular heartbeat) Meaningful Use Info Meaningful Use Diagnoses (Choose all that apply): None applicable Discharge Plan Admission Admit Date/Time: 05/14/21 17:05 Primary Reason for Your Visit: intractable back pain, chest pain Attending Provider: Marylu Cisneros Primary Care Provider: Stacie Rivers NP Instructions Patient Instructions: ED Fibromyalgia Discharge Orders/Prescriptions Prescriptions: Continued gabapentin 300 mg capsule 300 mg PO BID RF: 0 furosemide [Lasix] 20 mg tablet 20 mg PO DAILY PRN PRN (Reason: fluid) RF: 0 oxycodone-acetaminophen [Percocet] 7.5-325 mg tablet 1 tab PO 4X/DAY PRN (Reason: Pain) RF: 0 baclofen 5 mg tablet 5 mg PO DAILY PRN PRN (Reason: Spasms) RF: 0 citalopram 20 MG tablet 20 mg PO QHS RF: 0 aspirin 81 MG tablet 81 mg PO DAILY@0800 Qty: 30 RF: 0 zinc sulfate 50 mg zinc (220 mg) Tablet 50 mg PO DAILY@1200 RF: 0 ticagrelor 90 mg tablet 90 mg PO BID RF: 0 isosorbide mononitrate 60 mg tablet extended release 24 hr 60 mg PO BID Qty: 180 RF: 3 losartan 100 mg tablet 100 mg PO DAILY Qty: 90 RF: 3 metoprolol succinate 25 mg tablet extended release 24 hr 25 mg PO DAILY Qty: 90 RF: 3 nitroglycerin 0.4 mg tablet, sublingual 0.4 mg SL PRN PRN (Reason: Cardiac/Chest Pain) Qty: 25 RF: 4 ranolazine 1,000 mg tablet extended release 12 hr 1,000 mg PO BID Qty: 180 RF: 3 Referrals / Follow Up: Stacie Rivers NP, [employer] INSPECTOR-C [Primary Care Provider] - Within 2 Weeks Disposition Disposition (needs filled in before D/C Order can be placed): Home, Self Care Charges/Coding Visit Charges OBSV E&M: 12433 Observation care discharge
== END 2021-05-16 13:58 | disposition home or self-care (01) ==
LOC: ED 17:13 → MS2 17:18
PROVIDERS: Admitting Provider Family Medicine; Emergency Provider Emergency Medicine; PCP Nurse Practitioner Adult Health; Visit Provider Student in an Organized Health Care Education/Training Program
DX: M54.50 Low back pain, unspecified (principal); G89.29 Other chronic pain; Z23 Encounter for immunization; Z86.16 Personal history of COVID-19; M79.7 Fibromyalgia; M19.90 Unspecified osteoarthritis, unspecified site; I25.10 Atherosclerotic heart disease of native coronary artery without angina pectoris; I10 Essential (primary) hypertension; K21.9 Gastro-esophageal reflux disease without esophagitis; E78.5 Hyperlipidemia, unspecified; I25.2 Old myocardial infarction; G62.9 Polyneuropathy, unspecified; E66.9 Obesity, unspecified; Z79.899 Other long term (current) drug therapy; Z79.82 Long term (current) use of aspirin; Z87.891 Personal history of nicotine dependence; K57.30 Diverticulosis of large intestine without perforation or abscess without bleeding; I71.4 Abdominal aortic aneurysm, without rupture; Z68.31 Body mass index [BMI] 31.0-31.9, adult
CPT/HCPCS: 36415; 71275; 74176; 80048; 80053; 81001; 84484; 85025; 93005; 93017; 93350; 96361; 96372; 96374; 96375; 96376; 99218; 99251; 99284; G0008; J7030; J7040; Q9957; Q9967; 90686; A4216; C8928; G0378; G0463; J2405

== ENCOUNTER 2021-09-12 09:41 | Inpatient (IN) | payer MEDICARE, SELFPAY ==
[2021-09-12] VITALS (10 sets, daily range): BP systolic 117–173; BP diastolic 63–88; PULSE 72–85; RESP 16–32; TEMP 36.1–38; O2SAT 95–98; BMI 32.5; BMI 30.2
--- NOTE | 2021-09-12 10:06 | EKG12_ITS ---
Test Reason : CP Blood Pressure : / mmHG Vent. Rate : 075 BPM Atrial Rate : 075 BPM P-R Int : 152 ms QRS Dur : 084 ms QT Int : 416 ms P-R-T Axes : 038 009 078 degrees QTc Int : 464 ms Sinus rhythm with Premature atrial complexes Otherwise normal ECG Confirmed by BERNABE SEXTON, REBECCA ([id number]), deputy editor in chief DEVAUGHN PEREZ ([id number]) on 09/13/2021 10:28:38 AM Referred By: LAUREL Confirmed By:REBECCA KIDD MD
--- NOTE | 2021-09-12 10:08 | EX.ED.DYSGE1 ---
HPI History of Present Illness Chief Complaint: Chest Pain Detail of Chief Complaint: Back\Chest pain Informant: patient Onset/Context/Timing Onset: Yesterday Context: Gradual Onset Timing: Waxes and wanes Current Severity: Severe Maximum Severity: Severe Narrative Narrative: Patient presents via EMS secondary to back and chest pain. She states yesterday afternoon she developed tightness in her back that wraps around her chest. She was seen at [facility] yesterday where EKG and blood work along with chest x-ray were reportedly normal. She is on Percocet chronically through pain management. She was given prescriptions for Flexeril and Lidoderm patches but has not yet been able to go to the pharmacy. Due to increased pain today she called EMS. [facility] Medical History Arthritis Atherosclerosis of coronary artery of [place] heart without angina pectoris Brain tumor Chronic low back pain Chronic narcotic use Essential (primary) hypertension Fibromyalgia GERD (gastroesophageal reflux disease) History of non-ST elevation myocardial infarction (NSTEMI) (05/01/19) HLD (hyperlipidemia) Leg cramps Neuropathy Obesity (BMI 30.0-34.9) Osteoarthritis Plantar fasciitis Stomach ulcer Tobacco dependence in remission Unstable angina Home Medications citalopram 20 mg PO QHS 02/18/16 [History Last Taken 05/13/21] furosemide 20 mg tablet 20 mg PO DAILY PRN PRN tab 01/30/21 [History Last Taken Unknown] gabapentin 300 mg capsule 200 mg PO TID 01/30/21 [History Last Taken 05/13/21] isosorbide mononitrate 60 mg tablet,extended release 24 hr 60 mg PO BID #180 tab 02/01/21 [Rx Last Taken 05/14/21] losartan 100 mg tablet 100 mg PO DAILY #90 tab 02/01/21 [Rx Last Taken 05/14/21] metoprolol succinate 25 mg tablet,extended release 24 hr 25 mg PO DAILY #90 tab 02/01/21 [Rx Last Taken 05/14/21] nitroglycerin 0.4 mg sublingual tablet 0.4 mg SL PRN PRN #25 tab.subl 02/01/21 [Rx Last Taken Unknown] ranolazine 1,000 mg tablet,extended release,12 hr 1,000 mg PO BID #180 tab 02/01/21 [Rx Last Taken 05/14/21] ticagrelor 90 mg PO BID 05/14/21 [History Last Taken 05/14/21] docusate sodium 200 mg PO QHS 09/12/21 [History Last Taken Unknown] pantoprazole 20 mg PO DAILY 09/12/21 [History Last Taken Unknown] Allergy/AdvReac Type Severity Reaction Status Date / Time isometheptene [From Midrin] Allergy shaking Verified 05/14/21 13:07 Sulfa (Sulfonamide Allergy throat Verified 05/14/21 13:07 Antibiotics) Swelling ezetimibe [From Zetia] AdvReac Severe Pain in Verified 05/14/21 13:07 joints Eudgufy-QJK-NhD Reductase AdvReac Severe myalgias Verified 05/14/21 13:07 Inhibitor [Owthsew-Qmc-Tfc Reductase Inhibitor] codeine AdvReac Nausea/Vom/ Verified 05/14/21 13:07 Diarrhea dichloralphenazone AdvReac shaking Verified 05/14/21 13:07 [From Midrin] fish oil AdvReac Other Verified 05/14/21 13:07 ibuprofen AdvReac stomachache Verified 05/14/21 13:07 s topiramate [From Topamax] AdvReac I felt Verified 05/14/21 13:07 crazy Family History Grandmother Hypertension Father CVA (cerebral vascular accident) Heart disease Mother Hypertension Cancer Brother Cancer Sister Hypertension Surgical History H/O coronary artery bypass surgery (2006) H/O laminectomy History of bladder surgery History of coronary artery stent placement (05/02/19) History of craniotomy History of fusion of cervical spine History of hysterectomy History of laparoscopic cholecystectomy History of left heart catheterization (08/02/20) Social History household members: spouse Smoking Status: Former smoker how long ago did patient quit smoking: Quit 15 years prior, prior 1-1.5 ppd since teen. alcohol intake: never substance use type: does not use ROS ROS ED Constitutional Constitutional ED: Denies chills or fever(s) Eyes Eyes: Denies change in vision ENT ENT ED: Denies sore throat Cardiovascular Cardiovascular: Reports chest pain Respiratory/Chest Respiratory/Chest: Reports dyspnea; Denies cough Gastrointestinal Gastrointestinal: Denies abdominal pain, diarrhea, nausea or vomiting Genitourinary Genitourinary ED: Denies dysuria Musculoskeletal Musculoskeletal: Reports back pain Integumentary Denies rash Neurologic Neurologic: Denies headache(s) Psychiatric Psychiatric: Reports anxiety Endocrine Endocrinology: Denies polydipsia or polyuria Allergic/Immunologic Allergic/Immunologic ED: Denies urticaria EXAM Physical Exam Const Vital Signs: 09/12/21 09:42 09/12/21 10:36 09/12/21 10:58 Temperature 96.9 F L Temperature Source Temporal Pulse Rate 76 73 Respiratory Rate 18 20 H Blood Pressure 173/88 H 166/75 H Blood Pressure Mean 116 105 Pulse Ox 97 96 Oxygen Delivery Method Nasal Cannula Room Air Room Air Oxygen Flow Rate (L/min) 2 09/12/21 11:58 09/12/21 12:15 Temperature Temperature Source Pulse Rate 76 74 Respiratory Rate 16 20 H Blood Pressure 117/79 161/71 H Blood Pressure Mean 91 101 Pulse Ox 96 95 Oxygen Delivery Method Room Air Room Air Oxygen Flow Rate (L/min) Positive well nourished and well developed General Appearance ED: well developed HEENT Reports moist mucous membranes Eyes PERRL and EOMs intact bilaterally Neck supple Chest Wall inspection of chest normal and palpation of chest normal Resp normal respiratory effort and clear to auscultation bilaterally Cardio regular rate and regular rhythm GI non-tender Palpation: soft Extremity normal to inspection Neuro oriented x3 Sensorium / Orientation: alert Psych Mood & Affect: anxious Skin no rashes or lesions noted MDM MDM MDM Narrative Medical decision making narrative: Patient given Dilaudid, Zofran, Valium, IV fluids. EKG, lab work obtained. CTA of the chest ordered. Lab Data Attestation: I reviewed the patient's lab results. Labs: Laboratory Results - last 24 hr 09/12/21 09/12/21 09:50 09:50 WBC 10.8 RBC 4.19 L Hgb 13.2 Hct 40.2 MCV 95.9 MCH 31.5 MCHC 32.8 RDW Std Deviation 46.8 H RDW Coeff of Fredo 13.3 Plt Count 241 MPV 10.3 Immature Gran % (Auto) 0.600 Neut % (Auto) 73.6 H Lymph % (Auto) 13.5 L [place] % (Auto) 11.3 H Eos % (Auto) 0.6 Baso % (Auto) 0.4 Absolute Neuts (auto) 8.0 H Absolute Lymphs (auto) 1.46 Nucleated RBC % 0 Sodium 138 Potassium 3.9 Chloride 104 Carbon Dioxide 28.0 Anion Gap 6 BUN 17 Creatinine 1.07 H Estim Creat Clear Calc 39.23 Est GFR (MDRD) Af Amer 64 Est GFR (MDRD) Non-Af 53 L BUN/Creatinine Ratio 15.9 Glucose 120 H Calcium 8.7 Troponin I High Sens 8 Radiography Diagnostic Testing: Clinical Impression(s) from Imaging Studies Chest CTA 09/12/21 11:09 IMPRESSION: No evidence of pulmonary embolism. Bibasilar pulmonary infiltrates worse on the right side. Mild increased markings in the right middle lobe. Electronically Signed: Tayo Bundy MD at 12:24 EDT , EKG Initial EKG: Attestation: I personally reviewed and interpreted this EKG as follows: Interpretation: Sinus Rhythm (Sinus at 75 with occasional PACs. No acute ST change.) Treatment and Re-Evaluation Narrative: Patient did require second dose of Dilaudid prior to CT scan. Lab work is unremarkable with normal white count. 73% neutrophils. Chemistry studies unremarkable. Troponin normal at 8. CTA of the chest is obtained that reveals bilateral infiltrates right greater than left. Patient has not had significant cough recently, but this does correlate to the area where she is having significant pain. There is no.she is also having muscle spasm. She will be given additional dose of analgesics at this time along with Rocephin and Zithromax. Blood cultures will be drawn. Discharge Plan Triage Chief Complaint: Chest Pain ED Provider: Corry Willoughby Dx/Rx/DC Orders Clinical Impression: Pulmonary infiltrates, Back muscle spasm Prescriptions: No Action gabapentin 300 mg capsule 200 mg PO TID RF: 0 furosemide [Lasix] 20 mg tablet 20 mg PO DAILY PRN PRN (Reason: fluid) RF: 0 citalopram 20 MG tablet 20 mg PO QHS RF: 0 ticagrelor 90 mg tablet 90 mg PO BID RF: 0 pantoprazole 20 mg tablet,delayed release (DR/EC) 20 mg PO DAILY RF: 0 docusate sodium 100 mg Capsule 200 mg PO QHS RF: 0 isosorbide mononitrate 60 mg tablet extended release 24 hr 60 mg PO BID Qty: 180 RF: 3 losartan 100 mg tablet 100 mg PO DAILY Qty: 90 RF: 3 metoprolol succinate 25 mg tablet extended release 24 hr 25 mg PO DAILY Qty: 90 RF: 3 nitroglycerin 0.4 mg tablet, sublingual 0.4 mg SL PRN PRN (Reason: Cardiac/Chest Pain) Qty: 25 RF: 4 ranolazine 1,000 mg tablet extended release 12 hr 1,000 mg PO BID Qty: 180 RF: 3 Primary Care Provider: Stacie Rivers NP Referrals: Stacie Rivers NP, RN TEACHER-C [Primary Care Provider] - Disposition Disposition: Acute Care Hospital [facility]
[2021-09-12 10:22] LABS: Absolute Lymphocyte Count 1.46 X10^3/uL (0.83-4.51); Basophil# 0.04 X10^3/uL; Basophil% 0.4 % (0-1); Eosinophil# 0.06 X10^3/uL; Eosinophils% 0.6 % (0-5); Hematocrit 40.2 % (37-47); Hemoglobin 13.2 g/dL (12.0-15.0); Lymphocyte # 1.46 X10^3/ul (0.83-4.51); Lymphocyte % 13.5 % (19-41); Mean Corp Hgb Conc 32.8 g/dL (32-36); Mean Corpuscular Hgb 31.5 pg (27.0-32.0); Mean Corpuscular Volume 95.9 fL (81-99); Mean Platelet Vol. 10.3 fl (6.2-12.0); Monocyte# 1.22 X10^3/uL; Monocyte% 11.3 % (0-10); NRBC Flagged by Analyzer 0 % (0-5); Neutrophil % 73.6 % (47-70); Platelet Count 241 K/mm3 (150-450); RBC Distribution Width CV 13.3 % (11.6-14.6); RBC Distribution Width SD 46.8 fl (35.1-43.9); Red Blood Count 4.19 M/mm3 (4.2-5.4); White Blood Count 10.8 K/mm3 (4.4-11.0)
[2021-09-12] MEDS: diazePAM 5 MG Tablet 2.5 MG PO (10:34)
[2021-09-12] MEDS: 0.9% Normal Saline 1,000 ML 150 ML IV (10:35)
[2021-09-12] MEDS: HYDROmorphone 1 MG/ML Syringe 0.5 MG IV (10:35)
[2021-09-12] MEDS: Ondansetron 4 MG/2 ML Vial IV (10:35)
[2021-09-12 10:45] LABS: Anion Gap 6 (5-15); BUN 17 mg/dL (7-18); BUN/Creat Ratio 15.9 RATIO (10-20); Calcium,Total 8.7 mg/dL (8.5-10.1); Chloride 104 mmol/L (98-107); Creatinine, Serum 1.07 mg/dL (0.55-1.02); EST Glomerular Filtration Rate 53 mL/min (>60); Est Glom Filt Rate - Afr Amer 64 mL/min (>60); Estimated Creatinine Clearance 39.23 ml/min; Glucose 120 mg/dL (74-106); Potassium 3.9 mmol/L (3.5-5.1); Sodium Level 138 mmol/L (136-145); Troponin-I HS 8 pg/mL (3.0-54.0)
--- NOTE | 2021-09-12 11:09 | CT_ITS ---
STUDY: CTA CHEST REASON FOR EXAM: Female, 76 years old. Back/chest pain. Increasing chest pain since yesterday. RADIATION DOSAGE (If Supplied By Facility): CTDIvol = ( 21.745 ) mGy, DLP = ( 409.95 ) mGycm TECHNIQUE: The examination was performed with the intravenous administration of IV 100mL Isovue-370. Post-processing of the angiographic images was performed, with multiplanar reformation and 3D reconstruction. Individualized dose optimization techniques were used for this CT. COMPARISON: Comparison is made with prior study dated 05/14/2021. FINDINGS: Normal enhancement of the main pulmonary artery and right and left pulmonary arteries. Normal enhancement of the bilateral peripheral pulmonary arteries. There is no demonstrated pulmonary embolism. There is atherosclerotic calcification of the aortic arch with tortuosity. There is no demonstrated aortic dissection. Sternal cerclage wires and vascular clips are present from a prior sternotomy and coronary artery bypass graft procedure (CABG). There are calcifications of the coronary arteries. Normal mediastinum. Normal hilar regions. Normal visualized trachea and bronchi. The lungs are well expanded. Patchy bibasilar pulmonary infiltrates. This is worse at the right lung base. Mild increased markings in the right middle lobe. Normal pleura. Normal chest wall structures. There are degenerative changes of thoracic spine. Normal visualized upper abdomen. CT/CTA Chest W/WO Contrast IMPRESSION: No evidence of pulmonary embolism. Bibasilar pulmonary infiltrates worse on the right side. Mild increased markings in the right middle lobe. Electronically Signed: Tayo Bundy MD at 12:24 EDT ,
[2021-09-12] MEDS: HYDROmorphone 0.5 MG/0.5 ML SYRINGE IV ×2 (11:21→13:20)
--- NOTE | 2021-09-12 13:07 | HP.PCM.HOS_ITS ---
HPI - General General Date of Admission: 09/12/21 Date of Service: 09/12/21 Chief Complaint: Chest pain HPI Narrative The patient is a 76 y/o F w/ PMHx: Anxiety and Depression, OA, CAD s/p CABG 2006 and PCI 04/2019, Hx Tobacco use, GERD w/ Hx Gastric Ulcer/GI bleed, HTN, HLD, Chronic neuropathy w/ Chronic lumbar back pain following w/ Dr. Charles, Hx Brain tumor unclear type s/p craniotomy who presents to the [facility] ED with history of severe back and chest discomfort starting over the last 48 hours, waxing and waning, severe in nature, described as a tightness starting in her back and wrapping around her chest with [facility] ER evaluation the day prior with EKG and blood work as well as chest x-ray unremarkable with prescriptions for Flexeril and Lidoderm patches however she notes that she is not received these yet/filled at the pharmacy. Patient had again increased discomfort today prompting EMS call. She denies any recent fevers, chills, cough or dyspnea of note. She denies any ill contacts. She does have significantly poor respiratory effort secondary to severe pain in her back and chest with any deep inspiratory attempts. Work-up in the ED occluded T96.9, heart rate 76, BP 173/88, respiratory rate 18, 97% on 2 L noted to be 95 to 96% on room air, CBC with with WBC 10.8, hemoglobin 13.2, platelet 241 with left shift, BMP with BUN/creat 17/1.07, glucose 120, troponin 8, CTPA with no evidence of PE, bibasilar pulmonary infiltrates, worse on the right, mild increased markings in the right middle lobe, EKG with SR without acute evidence of ischemia with occasional PAC. Bld Cx x 2 being drawn per ED and patient administered IV rocephin and azithromycin. [facility] Medical History Arthritis Atherosclerosis of coronary artery of [place] heart without angina pectoris Brain tumor Chronic low back pain Chronic narcotic use Essential (primary) hypertension Fibromyalgia GERD (gastroesophageal reflux disease) History of non-ST elevation myocardial infarction (NSTEMI) (05/01/19) HLD (hyperlipidemia) Leg cramps Neuropathy Obesity (BMI 30.0-34.9) Osteoarthritis Plantar fasciitis Stomach ulcer Tobacco dependence in remission Unstable angina Home Medications citalopram 20 mg PO QHS 02/18/16 [History Last Taken 09/11/21] furosemide 20 mg tablet 20 mg PO DAILY PRN PRN tab 01/30/21 [History Last Taken Unknown] isosorbide mononitrate 60 mg tablet,extended release 24 hr 60 mg PO BID #180 tab 02/01/21 [Rx Last Taken 09/11/21] losartan 100 mg tablet 100 mg PO DAILY #90 tab 02/01/21 [Rx Last Taken 09/11/21] metoprolol succinate 25 mg tablet,extended release 24 hr 25 mg PO DAILY #90 tab 02/01/21 [Rx Last Taken 09/11/21] nitroglycerin 0.4 mg sublingual tablet 0.4 mg SL PRN PRN #25 tab.subl 02/01/21 [Rx Last Taken Unknown] ranolazine 1,000 mg tablet,extended release,12 hr 1,000 mg PO BID #180 tab 02/01/21 [Rx Last Taken 09/11/21] ticagrelor 90 mg PO BID 05/14/21 [History Last Taken 09/11/21] baclofen 2.5 - 5 mg PO TID PRN 09/12/21 [History Last Taken 1 Week Ago ~09/05/21] docusate sodium 200 mg PO QHS 09/12/21 [History Last Taken 09/11/21] gabapentin 200 mg PO BID 09/12/21 [History Last Taken 09/11/21] hydroxyzine HCl 25 mg PO QHS 09/12/21 [History Last Taken Unknown] oxycodone-acetaminophen 1 tab PO Q6H PRN 09/12/21 [History Last Taken 09/12/21 07:45] pantoprazole 20 mg PO DAILY 09/12/21 [History Last Taken 09/11/21] Allergy/AdvReac Type Severity Reaction Status Date / Time isometheptene [From Midrin] Allergy shaking Verified 05/14/21 13:07 Sulfa (Sulfonamide Allergy throat Verified 05/14/21 13:07 Antibiotics) Swelling ezetimibe [From Zetia] AdvReac Severe Pain in Verified 05/14/21 13:07 joints Sfjdtaf-QAC-PrZ Reductase AdvReac Severe myalgias Verified 05/14/21 13:07 Inhibitor [Efsvusb-Dei-Kex Reductase Inhibitor] codeine AdvReac Nausea/Vom/ Verified 05/14/21 13:07 Diarrhea dichloralphenazone AdvReac shaking Verified 05/14/21 13:07 [From Midrin] fish oil AdvReac Other Verified 05/14/21 13:07 ibuprofen AdvReac stomachache Verified 05/14/21 13:07 s topiramate [From Topamax] AdvReac I felt Verified 05/14/21 13:07 crazy Family History Grandmother Hypertension Father CVA (cerebral vascular accident) Heart disease Mother Hypertension Cancer Brother Cancer Sister Hypertension Surgical History H/O coronary artery bypass surgery (2006) H/O laminectomy History of bladder surgery History of coronary artery stent placement (05/02/19) History of craniotomy History of fusion of cervical spine History of hysterectomy History of laparoscopic cholecystectomy History of left heart catheterization (08/02/20) Social History household members: spouse Smoking Status: Former smoker how long ago did patient quit smoking: Quit 15 years prior, prior 1-1.5 ppd since teen. alcohol intake: never substance use type: does not use ROS ROS Narrative Admission Review of Systems: CONSTITUTIONAL: No weight loss, fever, chills, + weakness or fatigue. HEENT: Eyes: No visual loss, blurred vision, double vision or yellow sclerae. Ears, Nose, Throat: No hearing loss, sneezing, congestion, runny nose or sore throat. SKIN: No rash or itching, lesions, wounds. CARDIOVASCULAR: + Pleuritic chest pain, No palpitations, edema, orthopnea, syncopal events. RESPIRATORY: No shortness of breath, cough or sputum, wheezing, hemoptysis. GASTROINTESTINAL: + Anorexia, nausea without vomiting, constipation, No diarr hea, melena, BRBPR. GENITOURINARY: No dysuria, frequency, urgency or retention. NEUROLOGICAL: + Acute on Chronic intractable back pain, no change in bowel or bladder or any focal weakness, headache, dizziness, syncope, paralysis, ataxia, seizure. MUSCULOSKELETAL: + muscle, back pain, joint pain or stiffness. HEMATOLOGIC: + anemia, bleeding or bruising. LYMPHATICS: No enlarged nodes. No history of splenectomy. PSYCHIATRIC: + history of depression or anxiety. ENDOCRINOLOGIC: No reports of sweating, cold or heat intolerance. No polyuria or polydipsia. ALLERGIES: No history of asthma, hives, eczema or rhinitis. Vital Signs Vital Signs Vital Signs: 09/12/21 09:42 09/12/21 10:36 09/12/21 10:58 Temperature 96.9 F L Temperature Source Temporal Pulse Rate 76 73 Respiratory Rate 18 20 H Blood Pressure 173/88 H 166/75 H Blood Pressure Mean 116 105 Pulse Ox 97 96 Oxygen Delivery Method Nasal Cannula Room Air Room Air Oxygen Flow Rate (L/min) 2 09/12/21 11:58 09/12/21 12:15 Temperature Temperature Source Pulse Rate 76 74 Respiratory Rate 16 20 H Blood Pressure 117/79 161/71 H Blood Pressure Mean 91 101 Pulse Ox 96 95 Oxygen Delivery Method Room Air Room Air Oxygen Flow Rate (L/min) Weight Weight: 189 lb 9.561 oz Body Mass Index (BMI) 32.5 Physical Exam Narrative Physical Examination: General: Awake, alert, oriented x 3 and cooperative, seated upright in the ED bed, uncomfortable appearing, fatigued, barely able to move in the bed. Skin: Normal color, normal turgor, no icterus, no cyanosis. HEENT: AT/NC, EOMI, PERRLA, dry MM, no carotid bruits or JVD noted. Lungs: Significantly decreased effort, notable pleuritic pain with any increased attempts, diminished throughout, greater bases, no obvious rales, ronchi or wheezing. Heart: Currently regular rate and rhythm; no gallop, rub audible. Abdomen: Soft, obese, mild discomfort to palpation, worse in the right upper and lower quadrants with suspected constipation per discussion, no rebound or guarding, no obvious distention, distant mildly hypoactive bowel sounds, no obvious HSM. Extremities: No cyanosis, clubbing, or edema. Neurological: Patient awake, alert, oriented as noted, cognitive function intact; pupils equally reactive to light and accommodation, cranial nerves II- XII grossly normal, moving all 4 extremities, no focal deficits, strength severely globally decreased secondary to acute presentation. Psychiatric: Affect appears uncomfortable, no acute evidence of depressive or anxiety feelings. Results Lab / Micro Data Result Diagrams: 09/12/21 09:50 09/12/21 09:50 Labs: Laboratory Results - last 24 hr 09/12/21 09:50: WBC 10.8, RBC 4.19 L, Hgb 13.2, Hct 40.2, MCV 95.9, MCH 31.5, MCHC 32.8, RDW Std Deviation 46.8 H, RDW Coeff of Fredo 13.3, Plt Count 241, MPV 10.3, Immature Gran % (Auto) 0.600, Neut % (Auto) 73.6 H, Lymph % (Auto) 13.5 L, [place] % (Auto) 11.3 H, Eos % (Auto) 0.6, Baso % (Auto) 0.4, Absolute Neuts (auto) 8.0 H, Absolute Lymphs (auto) 1.46, Nucleated RBC % 0 09/12/21 09:50: Sodium 138, Potassium 3.9, Chloride 104, Carbon Dioxide 28.0, Anion Gap 6, BUN 17, Creatinine 1.07 H, Estim Creat Clear Calc 39.23, Est GFR (MDRD) Af Amer 64, Est GFR (MDRD) Non-Af 53 L, BUN/Creatinine Ratio 15.9, Glucose 120 H, Calcium 8.7, Troponin I High Sens 8 Radiology Impression Chest CTA 09/12/21 11:09 IMPRESSION: No evidence of pulmonary embolism. Bibasilar pulmonary infiltrates worse on the right side. Mild increased markings in the right middle lobe. Electronically Signed: Tayo Bundy MD at 12:24 EDT , Assessment & Plan Assessment/Plan (1) Pulmonary infiltrates: PLAN: The patient is a 76 y/o F w/ PMHx: Anxiety and Depression, OA, CAD s/p CABG 2006 and PCI 04/2019, Hx Tobacco use, GERD w/ Hx Gastric Ulcer/GI bleed, HTN, HLD, Chronic neuropathy w/ Chronic lumbar back pain following w/ Dr. Charles, Hx Brain tumor unclear type s/p craniotomy who presents to the [facility] ED with history of severe back and chest discomfort starting over the last 48 hours, waxing and waning, severe in nature, described as a tightness starting in her back and wrapping around her chest with [facility] ER evaluation the day prior with EKG and blood work as well as chest x-ray unremarkable with prescriptions for Flexeril and Lidoderm patches however she notes that she is not received these yet/filled at the pharmacy. #1. ? BL Community Acquired Pneumonia complicated by associated Acute on Chronic Back Pain following w/ Pain management: Will admit to [facility], maintain on oxygen with wean as tolerated to room air, maintained on IV Rocephin and Azithromycin pending further evaluation w/ COVID PCR, respiratory viral panel, sputum Cx, antigens in addition to procalcitonin, potentially could be viral in etiology, HOB, IS parameters, Bld cx x 2 obtained in the ED. we will use arthritic pain compound on the back as able, temporarily increase patient gabapentin and will have as needed oral/IV pain regimen temporarily. PT/OT/case management consultations for discharge planning. #2. CAD: Status post CABG and PCI, will continue aspirin, Brilinta, metoprolol, losartan regimen. #3. Hypertension: Continue home regimen including metoprolol, losartan, isosorbide with hold parameters as needed, PRN hydralazine. #4. Hyperlipidemia: Statin allergy noted, encourage continued outpatient follow- up with cardiology. #5. GERD with history of prior gastric ulcer/GI bleed: Will maintain on PPI. #6. History of brain tumor: Unclear specific type, status post craniotomy, considered in remission per discussion. #7. Obesity: Weight loss and lifestyle changes encouraged. #8. Anxiety and depression: We will continue patient home citalopram regimen. #9. Former tobacco use: Encourage continued tobacco cessation. #10. Hx infrarenal abdominal aortic aneurysm: Noted during a prior admission, at that time CT abdomen and pelvis with noted 3.4 cm infrarenal aneurysm, encourage continued outpatient evaluation and follow-up. #11. DVT prophylaxis: SCDs, Lovenox. #12. CODE status: Full Code. No formal HCPOA/LW in place. Charges/Coding Visit Charges OBSV E&M: 25637 Initial observation care L3
[2021-09-12 14:37] LABS: Procalcitonin < 0.04 ng/mL (0.00-0.09)
[2021-09-12] MEDS: Ceftriaxone 1 GM/50 ML BAG IV (15:08)
[2021-09-12] MEDS: 0.9% Normal Saline 1,000 ML 100 ML IV (15:08)
[2021-09-12] MEDS: Gabapentin 300 MG Capsule PO ×2 (15:49→22:11)
[2021-09-12] MEDS: Arthritis Pain Compound 60 CLICK TUBE TOPICAL ×2 (15:49→22:10)
[2021-09-12] MEDS: HYDROmorphone 1 MG/ML Syringe IV ×2 (15:58→22:12)
--- NOTE | 2021-09-12 16:18 | EKG12_ITS ---
Test Reason : Blood Pressure : / mmHG Vent. Rate : 083 BPM Atrial Rate : 083 BPM P-R Int : 152 ms QRS Dur : 084 ms QT Int : 390 ms P-R-T Axes : 036 002 072 degrees QTc Int : 458 ms Sinus rhythm with Premature atrial complexes Nonspecific ST and T wave abnormality Abnormal ECG Confirmed by BERNABE SEXTON, REBECCA ([id number]), supervising editor news reel DEVAUGHN PEREZ ([id number]) on 09/16/2021 11:37:44 AM Referred By: ANNALISA Confirmed By:REBECCA KIDD MD
[2021-09-12 16:40] LABS: Troponin-I HS 10 pg/mL (3.0-54.0)
[2021-09-12] MEDS: hydrALAZINE 20 MG/ML Vial 10 MG IV (18:03)
[2021-09-12 19:54] LABS: Troponin-I HS 6 pg/mL (3.0-54.0)
[2021-09-12] MEDS: Ranolazine 500 MG Tablet 1000 MG PO (22:10)
[2021-09-12] MEDS: Docusate Sodium 100 MG Capsule 200 MG PO (22:10)
[2021-09-12] MEDS: Isosorbide Mononitrate 60 MG Tablet PO (22:11)
[2021-09-12] MEDS: hydrOXYzine PAM 25 MG Capsule PO (22:11)
[2021-09-12] MEDS: Citalopram 20 MG Tablet PO (22:11)
[2021-09-12] MEDS: TICAGRELOR 90 MG TABLET PO (22:11)
[2021-09-12 23:29] LABS: Troponin-I HS 9 pg/mL (3.0-54.0)
[2021-09-13] VITALS (10 sets, daily range): BP systolic 86–134; BP diastolic 45–66; PULSE 63–77; RESP 16–23; TEMP 36.4–36.9; O2SAT 88–100
[2021-09-13] MEDS: 0.9% Normal Saline 1,000 ML 100 ML IV ×2 (02:05→15:34)
[2021-09-13 05:16] LABS: Absolute Neutrophil Count 8.2 X10^3/uL (2.0-7.7); Basophil# 0.01 X10^3/uL; Basophil% 0.1 % (0-1); Eosinophil# 0.01 X10^3/uL; Eosinophils% 0.1 % (0-5); Hematocrit 33.4 % (37-47); Hemoglobin 11.1 g/dL (12.0-15.0); Lymphocyte % 9.7 % (19-41); Mean Corp Hgb Conc 33.2 g/dL (32-36); Mean Corpuscular Volume 96.3 fL (81-99); Mean Platelet Vol. 10.2 fl (6.2-12.0); Monocyte# 1.08 X10^3/uL; Monocyte% 10.5 % (0-10); NRBC Flagged by Analyzer 0 % (0-5); Neutrophil # 8.15 X10^3/uL (2.7-7.7); Neutrophil % 79.1 % (47-70); Platelet Count 200 K/mm3 (150-450); RBC Distribution Width CV 13.3 % (11.6-14.6); RBC Distribution Width SD 47.1 fl (35.1-43.9); Red Blood Count 3.47 M/mm3 (4.2-5.4); White Blood Count 10.3 K/mm3 (4.4-11.0)
[2021-09-13] MEDS: Gabapentin 300 MG Capsule PO ×2 (05:17→22:03)
[2021-09-13 05:43] LABS: ALB/GLOB Ratio 0.8 RATIO (0.9-2.4); AST(SGOT) 9 U/L (15-37); Alanine Aminotransfer ALT/SGPT 17 U/L (13-56); Albumin, Serum 2.6 g/dL (3.2-5.0); Alkaline Phosphatase 61 U/L (45-117); Anion Gap 6 (5-15); BUN 16 mg/dL (7-18); BUN/Creat Ratio 16.5 RATIO (10-20); Chloride 104 mmol/L (98-107); Creatinine, Serum 0.97 mg/dL (0.55-1.02); EST Glomerular Filtration Rate 59 mL/min (>60); Est Glom Filt Rate - Afr Amer 72 mL/min (>60); Estimated Creatinine Clearance 43.27 ml/min; Globulin 3.3 g/dL (2.2-4.2); Glucose 135 mg/dL (74-106); Potassium 3.7 mmol/L (3.5-5.1); Protein, Total 5.9 g/dL (6.4-8.2); Sodium Level 136 mmol/L (136-145)
[2021-09-13] MEDS: Metoprolol(XL)Succ 25 MG Tablet PO (09:35)
[2021-09-13] MEDS: Isosorbide Mononitrate 60 MG Tablet PO ×2 (09:36→22:03)
[2021-09-13] MEDS: Pantoprazole Sodium 20 MG Tablet PO (09:36)
[2021-09-13] MEDS: Ranolazine 500 MG Tablet 1000 MG PO ×2 (09:36→22:03)
[2021-09-13] MEDS: Arthritis Pain Compound 60 CLICK TUBE TOPICAL ×2 (09:36→22:02)
[2021-09-13] MEDS: Losartan Potassium 100 MG Tablet PO (09:36)
[2021-09-13] MEDS: TICAGRELOR 90 MG TABLET PO ×2 (09:36→22:03)
[2021-09-13] MEDS: Enoxaparin 40 MG/0.4 ML Syringe SC (09:36)
[2021-09-13] MEDS: HYDROmorphone 1 MG/ML Syringe IV (09:47)
[2021-09-13] MEDS: Ceftriaxone 1 GM/50 ML BAG IV (11:04)
--- NOTE | 2021-09-13 11:48 | PCM.PN.HOSP ---
Subjective Subjective Continues to complain of back pain, she is taking short shallow breaths which is likely leading to her pneumonia. She has no identifiable cause for her back pain is CT scans were negative for any type of traumatic injury Objective Data Objective Data Vital Signs: Vital Signs Temp Pulse Resp BP Pulse Ox 98.4 F 68 16 129/66 H 96 09/13/21 09:29 09/13/21 09:35 09/13/21 09:29 09/13/21 09:35 09/13/21 09:29 Oxygen Flow Rate (L/min) 2 Oxygen Delivery Method Nasal Cannula Weight: 182 lb 1.629 oz Body Mass Index (BMI) 30.2 Intake & Output: Intake and Output for Last 24 Hours 09/12/21 09/13/21 09/14/21 03:59 03:59 03:59 Intake Total 2455.00 / 2455.00 1083.33 / 1083.33 Output Total 200 / 200 Balance 2255.00 / 2255.00 1083.33 / 1083.33 Lab / Micro Data Result Diagrams: 09/13/21 04:58 09/13/21 04:58 Labs: Laboratory Results - last 24 hr 09/12/21 09:50: Procalcitonin < 0.04 09/12/21 15:50: COVID-19 (JIMBO) Not Detected 09/12/21 16:05: Troponin I High Sens 10 09/12/21 18:55: Troponin I High Sens 6 09/12/21 22:40: Troponin I High Sens 9 09/13/21 04:58: WBC 10.3, RBC 3.47 L, Hgb 11.1 L, Hct 33.4 L, MCV 96.3, MCH 32.0, MCHC 33.2, RDW Std Deviation 47.1 H, RDW Coeff of Fredo 13.3, Plt Count 200, MPV 10.2, Immature Gran % (Auto) 0.500, Neut % (Auto) 79.1 H, Lymph % (Auto) 9.7 L, [place] % (Auto) 10.5 H, Eos % (Auto) 0.1, Baso % (Auto) 0.1, Absolute Neuts (auto) 8.2 H, Absolute Lymphs (auto) 1.00, Nucleated RBC % 0 09/13/21 04:58: Sodium 136, Potassium 3.7, Chloride 104, Carbon Dioxide 26.0, Anion Gap 6, BUN 16, Creatinine 0.97, Estim Creat Clear Calc 43.27, Est GFR (MDRD) Af Amer 72, Est GFR (MDRD) Non-Af 59 L, BUN/Creatinine Ratio 16.5, Glucose 135 H, Calcium 8.0 L, Total Bilirubin 0.80, AST 9 L, ALT 17, Alkaline Phosphatase 61, Total Protein 5.9 L, Albumin 2.6 L, Globulin 3.3, Albumin/Globulin Ratio 0.8 L Micro: Microbiology 09/12/21 15:50 Mucosa - Nasopharyngeal Respiratory Panel (PCR) - Final 09/12/21 15:10 Interface Orders Streptococcus pneumoniae Antigen (M - Final 09/12/21 15:10 Interface Orders Legionella Antigen - Final Radiography Diagnostic Testing: Radiology Impression Chest CTA 09/12/21 11:09 IMPRESSION: No evidence of pulmonary embolism. Bibasilar pulmonary infiltrates worse on the right side. Mild increased markings in the right middle lobe. Electronically Signed: Tayo Bundy MD at 12:24 EDT , Physical Exam Const alert, oriented x3 and no apparent distress General Appearance: cooperative HEENT normocephalic and moist oral mucous membranes Eyes PERRL, EOMs intact bilaterally and conjunctivae normal Neck supple and no JVD Resp normal respiratory effort, no retractions and no use of accessory muscles Auscultation: diminished lung sounds; Negative for crackles, rales, rhonchi or wheezes Cardio regular rate, regular rhythm, S1 normal heart sound, S2 normal heart sound and no murmurs GI soft to palpation, non-tender and non-distended; Negative for hepatosplenomegaly Back/Spine Back/Spine Narrative: She has significant pain to palpation in all aspects of her back regardless of intensity of palpation. No abnormalities are felt, no step-offs and nothing that could be identified is point tenderness Extremity no clubbing, cyanosis or edema Skin no rashes or lesions noted Neuro no focal motor deficits and no sensory deficits noted Psych Mood & Affect: anxious and flat affect Assessment & Plan Assessment/Plan (1) Pulmonary infiltrates: PLAN: 1. Bilateral community-acquired pneumonia likely secondary to chronic back pain ? She takes very short shallow breaths and does not fully expand her lungs. She is complaining of having chronic back pain ? That she says that this is potentially due to neuropathy but she is never followed up with anybody, she had a similar issue back in April and she was worked up for cardiac cause and then which was negative ? Outside hospital that she had initially presented to was negative for cardiac issues and serial troponins here were also unremarkable ? CTA of the chest shows bilateral possible pneumonia versus atelectasis secondary to her poor respiratory status. Of note there is no identifiable cause for her back pain therefore we will discontinue all of her narcotics ? We will place her on Cymbalta secondary to a possibility of fibromyalgia given her chronic back pain and her history of anxiety and depression ? Given also the possibility for arthritis and inflammation we will place her on steroids ? Continue with antibiotics and blood cultures are pending 2. CAD status post CABG and stents/HTN/HLD/obesity ? She has a history of infrarenal abdominal aortic aneurysm at her previous admission in April it was 3.4 cm, she will need to continue with outpatient follow-up ? She did have a stress echo back in April which was unremarkable ? Continue with her home blood pressure medications ? Continue with aspirin and Brilinta ? Blood pressures are stable ? She is allergic to statin ? Weight loss and lifestyle modifications encouraged, BMI of 31.3 3. GERD ? Stable ? Continue with PPI 4. Anxiety/depression ? This is likely the biggest contributor to her back pain and the intensity of it ? We will change her Celexa to Cymbalta to see if we can get better control of chronic pain issues ? Would recommend follow-up with both a psychiatrist as well as pain management as an outpatient DVT: Lovenox Charges/Coding Visit Charges OBSV E&M: 79103 Subsequent observation care L2
--- NOTE | 2021-09-13 12:17 | CM.UR ---
PAULINA VILLA NOTE: Intro role of CM to patient and JIMENEZ form explained re: Observation status for treatment of chest/back pain. Explained hospitalization will be paid per her insurance policy for Outpatient billing and condition will continue to be evaluated for Inpt necessity. Also let pt know that [facility] sends paper in the billing packet with their phone number if questions arise. Discussed Pharmacy section of JIMENEZ form and self administered medication guideline. Pt verbalizes understanding and does not have further questions. Form signed, copy made and placed in chart, and original given to pt. Pt stated, I can barely move. The doctor told me I may need to go to a [facility]. I don't want to go to [facility]. I have 3 kids who can take care of me. PAULINA VILLA inquired if her children are aware of her needs and if they are willing to assist w/her care or stay w/her. She states, They don't know about it yet'. She stated she would need to talk w/her and her children about it. Manuel GEE RN, CM
[2021-09-13 13:26] LABS: Allen Test Positive; Base Excess 0 mmol/L (-2 to +2); Bicarbonate 24.5 mmol/L (22-26); Blood Gas Specimen Type ART; O2 Delivery Device Cannula; PO2 82 mmHG (75-100); SITE R Radial; SO2 96 % (95-99); Total Carbon Dioxide 26 mmol/L; pH 7.39 (7.35-7.45)
[2021-09-13] MEDS: Acetaminophen 325 MG Tablet 650 MG PO ×2 (14:20→22:03)
--- NOTE | 2021-09-13 14:45 | CASEMGMT ---
SW was informed physician told patient she may need to go to a fpc if she cannot move. SW met with patient and her family who was present. SW introduced self and role at [facility]. SW explained that if patient is not able to get stronger before discharge she may need to go to a longterm facility short term. SW provided patient with a list of SNF providers including quality and resource use data and consistent with the patient?s preferred geographic region, medical needs, and insurance network. SW explained that the facilities that are highlighted in pink are the ones that take patient's insurance. Patient's said, This list means nothing to me. Why does the doctor think she needs to go to a fpc? SW explained that if patient were to be discharged today she would be too weak to go home and would need fpc short term. SW explained that patient could improve and may not need to go anywhere. SW is just giving them a list in the event she does need to go somewhere. Rubia Mayo LENGTH CONTROL TESTER SHIRA
--- NOTE | 2021-09-13 15:00 | CASEMGMT ---
RN CM Face to Face with patient for initial transition planning/care coordination assessment. RN CM introduced self and role at [facility]. Patient lying in bed, alert and oriented, and son at bedside. Patient willing to participate in assessment and is able to answer all questions appropriately. Care providers, pharmacy, and demographics verified. Patient wishes to discharge home, will monitor progress with therapy for possible SNF vs HHC at discharge. Patient states she has no further needs or concerns at this time. CM to follow for discharge planning needs that may arise. PCP: Tita DUEÑAS Specialists: Sandra courier driver Preferred Pharmacy: [facility] Insurance: [employer] [facility] Prescription Benefit: yes Living Will/HPOA: none LNOK: , children Living Arrangements: Patient lives with in a 2 story home with bed and bath on first floor. 4 steps and railing to enter the home. Patient states she was independent at home prior to current illness Transportation: self, DME/HHC: Patient states she has raised toilet and can at home. Will monitor for walker and home oxygen if discharged home. Therapy is pending and CM to monitor progress with disposition recommendations. Disposition Plan: HHC vs SNF pending course of treatment and progress with therapy. Nadine GEE, RN, CM
[2021-09-13] MEDS: hydrOXYzine PAM 25 MG Capsule PO (22:03)
[2021-09-13] MEDS: Docusate Sodium 100 MG Capsule 200 MG PO (22:03)
[2021-09-13] MEDS: oxyCODONE 5 MG Tablet PO (22:04)
[2021-09-14] MEDS: 0.9% Normal Saline 1,000 ML 100 ML IV ×3 (01:47→23:33)
[2021-09-14 03:36] VITALS: BP 119/53; PULSE 60; RESP 20; TEMP 36.6; O2SAT 97
[2021-09-14] MEDS: Gabapentin 300 MG Capsule PO ×3 (05:23→22:23)
[2021-09-14 09:39] VITALS: BP 148/66; PULSE 94; RESP 18; TEMP 36.8; O2SAT 98
[2021-09-14 10:00] VITALS: BP 148/66; PULSE 94
[2021-09-14] MEDS: TICAGRELOR 90 MG TABLET PO ×2 (10:00→22:23)
[2021-09-14] MEDS: Losartan Potassium 100 MG Tablet PO (10:00)
[2021-09-14] MEDS: DULoxetine Hcl 30 MG Capsule PO (10:00)
[2021-09-14] MEDS: Enoxaparin 40 MG/0.4 ML Syringe SC (10:00)
[2021-09-14] MEDS: Metoprolol(XL)Succ 25 MG Tablet PO (10:00)
[2021-09-14] MEDS: predniSONE 20 MG Tablet 40 MG PO (10:01)
[2021-09-14] MEDS: Ranolazine 500 MG Tablet 1000 MG PO ×2 (10:01→22:23)
[2021-09-14] MEDS: Pantoprazole Sodium 20 MG Tablet PO (10:01)
[2021-09-14] MEDS: Isosorbide Mononitrate 60 MG Tablet PO ×2 (10:01→22:23)
[2021-09-14] MEDS: Arthritis Pain Compound 60 CLICK TUBE TOPICAL ×2 (10:01→22:21)
[2021-09-14] MEDS: Ceftriaxone 1 GM/50 ML BAG IV (10:02)
[2021-09-14] MEDS: oxyCODONE 5 MG Tablet PO ×3 (10:12→23:29)
--- NOTE | 2021-09-14 12:22 | PCM.PN.HOSP ---
Subjective Subjective Feels little bit better today. Shortness of breath is better and she is off of oxygen. She was on maximum to assist to go from supine to sit. We will have her continue to follow-up with PT/OT Objective Data Objective Data Vital Signs: Vital Signs Temp Pulse Resp BP Pulse Ox 98.2 F 94 18 148/66 H 98 09/14/21 09:39 09/14/21 10:00 09/14/21 09:39 09/14/21 10:00 09/14/21 09:39 Oxygen Flow Rate (L/min) 2 Oxygen Delivery Method Nasal Cannula Weight: 192 lb 10.944 oz Body Mass Index (BMI) 30.2 Intake & Output: Intake and Output for Last 24 Hours 09/13/21 09/14/21 09/15/21 03:59 03:59 03:59 Intake Total 2455.00 / 2455.00 4103.33 / 4103.33 1215.25 / 1215.25 Output Total 200 / 200 Balance 2255.00 / 2255.00 4103.33 / 4103.33 1215.25 / 1215.25 Lab / Micro Data Result Diagrams: 09/13/21 04:58 09/13/21 04:58 Micro: Microbiology 09/12/21 15:50 Mucosa - Nasopharyngeal Respiratory Panel (PCR) - Final 09/12/21 15:10 Interface Orders Streptococcus pneumoniae Antigen (M - Final 09/12/21 15:10 Interface Orders Legionella Antigen - Final ABG Data ABG results: ABG 09/13/21 13:18 Specimen Type ART Sample Site R Radial pH 7.39 Bicarbonate Actual 24.5 Total CO2 26 Base Excess 0 O2 Saturation 96 ABG pCO2 40.0 ABG pO2 82 Volodymyr Test Positive O2 Delivery Device Cannula Liter Flow 2.0 Physical Exam Narrative Const alert, oriented x3 and no apparent distress General Appearance: cooperative HEENT normocephalic and moist oral mucous membranes Eyes PERRL, EOMs intact bilaterally and conjunctivae normal Neck supple and no JVD Resp normal respiratory effort, no retractions and no use of accessory muscles Auscultation: diminished lung sounds; Negative for crackles, rales, rhonchi or wheezes Cardio regular rate, regular rhythm, S1 normal heart sound, S2 normal heart sound and no murmurs GI soft to palpation, non-tender and non-distended; Negative for hepatosplenomegaly Back/Spine Back/Spine Narrative: No change from yesterday Extremity no clubbing, cyanosis or edema Skin no rashes or lesions noted Neuro no focal motor deficits and no sensory deficits noted Psych Mood & Affect: anxious and flat affect Assessment & Plan Assessment/Plan (1) Pulmonary infiltrates: PLAN: 1. Bilateral community-acquired pneumonia likely secondary to chronic back pain ? She takes very short shallow breaths and does not fully expand her lungs. She is complaining of having chronic back pain ? That she says that this is potentially due to neuropathy but she is never followed up with anybody, she had a similar issue back in April and she was worked up for cardiac cause and then which was negative ? Outside hospital that she had initially presented to was negative for cardiac issues and serial troponins here were also unremarkable ? CTA of the chest shows bilateral possible pneumonia versus atelectasis secondary to her poor respiratory status. Of note there is no identifiable cause for her back pain therefore we will discontinue all of her narcotics ? We will place her on Cymbalta secondary to a possibility of fibromyalgia given her chronic back pain and her history of anxiety and depression ? Given also the possibility for arthritis and inflammation we will place her on steroids ? Continue with antibiotics and blood cultures are pending 2. CAD status post CABG and stents/HTN/HLD/obesity ? She has a history of infrarenal abdominal aortic aneurysm at her previous admission in April it was 3.4 cm, she will need to continue with outpatient follow-up ? She did have a stress echo back in April which was unremarkable ? Continue with her home blood pressure medications ? Continue with aspirin and Brilinta ? Blood pressures are stable ? She is allergic to statin ? Weight loss and lifestyle modifications encouraged, BMI of 31.3 3. GERD ? Stable ? Continue with PPI 4. Anxiety/depression ? This is likely the biggest contributor to her back pain and the intensity of it ? We will change her Celexa to Cymbalta to see if we can get better control of chronic pain issues ? Would recommend follow-up with both a psychiatrist as well as pain management as an outpatient DVT: Yonas Charges/Coding Visit Charges Inpatient E&M: 37571 Subs Hosp L2
[2021-09-14 14:16] VITALS: BP 134/56; PULSE 66; RESP 16; TEMP 36.6; O2SAT 93
[2021-09-14] MEDS: Acetaminophen 325 MG Tablet 650 MG PO ×2 (14:22→23:30)
[2021-09-14 20:07] VITALS: BP 168/76; PULSE 68; RESP 18; TEMP 36.2; O2SAT 96
[2021-09-14] MEDS: 0.9% Saline Lock 10 ML Syringe IV (22:21)
[2021-09-14] MEDS: Docusate Sodium 100 MG Capsule 200 MG PO (22:23)
[2021-09-14] MEDS: hydrOXYzine PAM 25 MG Capsule PO (22:23)
[2021-09-15] VITALS (12 sets, daily range): BP systolic 142–222; BP diastolic 56–87; PULSE 60–80; RESP 16–28; TEMP 36.1–37.2; O2SAT 93–98
[2021-09-15] MEDS: Acetaminophen 325 MG Tablet 650 MG PO ×3 (06:14→22:25)
[2021-09-15] MEDS: oxyCODONE 5 MG Tablet PO (06:14)
[2021-09-15] MEDS: Gabapentin 300 MG Capsule PO ×3 (06:15→21:05)
[2021-09-15] MEDS: hydrALAZINE 20 MG/ML Vial 10 MG IV ×2 (06:25→11:39)
[2021-09-15] MEDS: 0.9% Saline Lock 10 ML Syringe IV ×3 (06:33→21:06)
--- NOTE | 2021-09-15 06:55 | NURSING ---
Patient coughing SP02 at 88% put on 2L NC at 0620
[2021-09-15 07:54] LABS: Absolute Lymphocyte Count 1.49 X10^3/uL (0.83-4.51); Absolute Neutrophil Count 7.8 X10^3/uL (2.0-7.7); Basophil# 0.02 X10^3/uL; Basophil% 0.2 % (0-1); Eosinophil# 0.04 X10^3/uL; Eosinophils% 0.4 % (0-5); Hematocrit 31.1 % (37-47); Hemoglobin 10.2 g/dL (12.0-15.0); Lymphocyte # 1.49 X10^3/ul (0.83-4.51); Lymphocyte % 14.7 % (19-41); Mean Corp Hgb Conc 32.8 g/dL (32-36); Mean Corpuscular Hgb 31.7 pg (27.0-32.0); Mean Corpuscular Volume 96.6 fL (81-99); Mean Platelet Vol. 10.9 fl (6.2-12.0); Monocyte# 0.75 X10^3/uL; Monocyte% 7.4 % (0-10); NRBC Flagged by Analyzer 0 % (0-5); Neutrophil # 7.81 X10^3/uL (2.7-7.7); Neutrophil % 76.8 % (47-70); Platelet Count 245 K/mm3 (150-450); RBC Distribution Width CV 13.1 % (11.6-14.6); Red Blood Count 3.22 M/mm3 (4.2-5.4); White Blood Count 10.2 K/mm3 (4.4-11.0)
[2021-09-15 08:15] LABS: Anion Gap 5 (5-15); BUN 17 mg/dL (7-18); BUN/Creat Ratio 21.1 RATIO (10-20); Calcium,Total 8.4 mg/dL (8.5-10.1); Chloride 113 mmol/L (98-107); EST Glomerular Filtration Rate 74 mL/min (>60); Est Glom Filt Rate - Afr Amer 89 mL/min (>60); Estimated Creatinine Clearance 52.47 ml/min; Glucose 93 mg/dL (74-106); Potassium 3.8 mmol/L (3.5-5.1); Sodium Level 142 mmol/L (136-145)
[2021-09-15] MEDS: Isosorbide Mononitrate 60 MG Tablet PO ×2 (09:27→21:05)
[2021-09-15] MEDS: Pantoprazole Sodium 20 MG Tablet PO (09:27)
[2021-09-15] MEDS: DULoxetine Hcl 30 MG Capsule PO (09:28)
[2021-09-15] MEDS: Losartan Potassium 100 MG Tablet PO (09:29)
[2021-09-15] MEDS: Ranolazine 500 MG Tablet 1000 MG PO ×2 (09:29→21:06)
[2021-09-15] MEDS: predniSONE 20 MG Tablet 40 MG PO (09:30)
[2021-09-15] MEDS: Metoprolol(XL)Succ 25 MG Tablet PO (09:30)
[2021-09-15] MEDS: Arthritis Pain Compound 60 CLICK TUBE TOPICAL ×2 (09:31→21:02)
[2021-09-15] MEDS: Ceftriaxone 1 GM/50 ML BAG IV (10:03)
[2021-09-15] MEDS: TICAGRELOR 90 MG TABLET PO ×2 (10:05→21:04)
[2021-09-15] MEDS: Enoxaparin 40 MG/0.4 ML Syringe SC (10:06)
[2021-09-15] MEDS: guaiFENesin 10 ML UDC (200MG/10ML) 20 ML PO (10:12)
[2021-09-15] MEDS: oxyCODONE 5 MG Tablet 2.5 MG PO (11:07)
[2021-09-15] MEDS: diazePAM 2 MG Tablet PO (11:07)
[2021-09-15] MEDS: Ipratropium/Albuterol Sulfate 3 ML AMPUL.NEB INHALATION (11:07)
--- NOTE | 2021-09-15 14:26 | PN.HOSP_ITS ---
Subjective Subjective Still complaining of pain and subjective shortness of breath. She is still taking shallow breaths. There continues to be no sign as to the cause of her pain and it seems to shift daily between lateral chest pain anterior chest pain back pain bony pain Objective Data Objective Data Vital Signs: Vital Signs Temp Pulse Resp BP Pulse Ox 98.8 F 75 28 H 142/71 H 95 09/15/21 13:02 09/15/21 13:02 09/15/21 13:02 09/15/21 13:02 09/15/21 13:02 Oxygen Flow Rate (L/min) 2 Oxygen Delivery Method Nasal Cannula Weight: 194 lb 0.108 oz Body Mass Index (BMI) 30.2 Intake & Output: Intake and Output for Last 24 Hours 09/14/21 09/15/21 09/16/21 03:59 03:59 03:59 Intake Total 4103.33 / 4103.33 2960.25 / 2960.25 305 / 305 Balance 4103.33 / 4103.33 2960.25 / 2960.25 305 / 305 Lab / Micro Data Result Diagrams: 09/15/21 05:30 09/15/21 05:30 Labs: Laboratory Results - last 24 hr 09/15/21 05:30: WBC 10.2, RBC 3.22 L, Hgb 10.2 L, Hct 31.1 L, MCV 96.6, MCH 31.7, MCHC 32.8, RDW Std Deviation 47.0 H, RDW Coeff of Fredo 13.1, Plt Count 245, MPV 10.9, Immature Gran % (Auto) 0.500, Neut % (Auto) 76.8 H, Lymph % (Auto) 14.7 L, [place] % (Auto) 7.4, Eos % (Auto) 0.4, Baso % (Auto) 0.2, Absolute Neuts (auto) 7.8 H, Absolute Lymphs (auto) 1.49, Nucleated RBC % 0 09/15/21 05:30: Sodium 142, Potassium 3.8, Chloride 113 H, Carbon Dioxide 24.0, Anion Gap 5, BUN 17, Creatinine 0.80, Estim Creat Clear Calc 52.47, Est GFR (MDRD) Af Amer 89, Est GFR (MDRD) Non-Af 74, BUN/Creatinine Ratio 21.1 H, G lucose 93, Calcium 8.4 L Micro: Microbiology 09/13/21 04:58 Blood Culture (Wb) - Left Hand Blood Culture - Preliminary No growth in 48 hours. 09/12/21 13:30 Blood Culture (Wb) - Anticubital Right Blood Culture - Preliminary No growth in 48 hours. 09/12/21 15:50 Mucosa - Nasopharyngeal Respiratory Panel (PCR) - Final 09/12/21 15:10 Interface Orders Streptococcus pneumoniae Antigen (M - Final 09/12/21 15:10 Interface Orders Legionella Antigen - Final Physical Exam Narrative Const alert, oriented x3 and no apparent distress General Appearance: cooperative HEENT normocephalic and moist oral mucous membranes Eyes PERRL, EOMs intact bilaterally and conjunctivae normal Neck supple and no JVD Resp normal respiratory effort, no retractions and no use of accessory muscles Auscultation: diminished lung sounds; Negative for crackles, rales, rhonchi or wheezes Cardio regular rate, regular rhythm, S1 normal heart sound, S2 normal heart sound and no murmurs GI soft to palpation, non-tender and non-distended; Negative for hepatosplenomegaly Back/Spine Back/Spine Narrative: No change from yesterday Extremity no clubbing, cyanosis or edema Skin no rashes or lesions noted Neuro no focal motor deficits and no sensory deficits noted Psych Mood & Affect: anxious and flat affect Assessment & Plan Assessment/Plan (1) Pulmonary infiltrates: PLAN: 1. Bilateral community-acquired pneumonia likely secondary to chronic back pain ? She takes very short shallow breaths and does not fully expand her lungs. She is complaining of having chronic back pain ? That she says that this is potentially due to neuropathy but she is never followed up with anybody, she had a similar issue back in April and she was worked up for cardiac cause and then which was negative ? Outside hospital that she had initially presented to was negative for cardiac issues and serial troponins here were also unremarkable ? CTA of the chest shows bilateral possible pneumonia versus atelectasis secondary to her poor respiratory status. Of note there is no identifiable cause for her back pain therefore we will discontinue all of her narcotics other than what she takes chronically at home ? Will encourage staff to ambulate her as she does not appear to be able to take deep breaths with the incentive spirometer ? We will place her on Cymbalta secondary to a possibility of fibromyalgia given her chronic back pain and her history of anxiety and depression ? We will also trial her on some Valium today to see if this helps with her anxiety and eases her work of breathing ? Given also the possibility for arthritis and inflammation we will place her on steroids ? Continue with antibiotics and blood cultures are pending 2. CAD status post CABG and stents/HTN/HLD/obesity ? She has a history of infrarenal abdominal aortic aneurysm at her previous admission in April it was 3.4 cm, she will need to continue with outpatient follow-up ? She did have a stress echo back in April which was unremarkable ? Continue with her home blood pressure medications ? Continue with aspirin and Brilinta ? Blood pressures are stable ? She is allergic to statin ? Weight loss and lifestyle modifications encouraged, BMI of 33.3 3. GERD ? Stable ? Continue with PPI 4. Anxiety/depression ? This is likely the biggest contributor to her back pain and the intensity of it ? We will change her Celexa to Cymbalta to see if we can get better control of chronic pain issues ? We will also add Valium today x1 and see how she does ? Would recommend follow-up with both a psychiatrist as well as pain management as an outpatient DVT: Lovenox Charges/Coding Visit Charges Inpatient E&M: 70216 Subs Hosp L2
[2021-09-15] MEDS: oxyCODONE 5 MG Tablet 7.5 MG PO ×2 (16:06→22:25)
[2021-09-15] MEDS: Docusate Sodium 100 MG Capsule 200 MG PO (21:04)
[2021-09-15] MEDS: hydrOXYzine PAM 25 MG Capsule PO (21:05)
[2021-09-16] VITALS (13 sets, daily range): BP systolic 147–196; BP diastolic 58–97; PULSE 68–89; RESP 14–26; TEMP 36.8–37.3; O2SAT 93–98
[2021-09-16] MEDS: diazePAM 2 MG Tablet PO (04:51)
[2021-09-16] MEDS: Ipratropium/Albuterol Sulfate 3 ML AMPUL.NEB INHALATION (05:04)
[2021-09-16] MEDS: Gabapentin 300 MG Capsule PO ×3 (05:54→21:45)
[2021-09-16 06:30] LABS: Absolute Lymphocyte Count 1.21 X10^3/uL (0.83-4.51); Absolute Neutrophil Count 8.4 X10^3/uL (2.0-7.7); Basophil# 0.02 X10^3/uL; Basophil% 0.2 % (0-1); Eosinophil# 0.08 X10^3/uL; Eosinophils% 0.7 % (0-5); Hemoglobin 10.6 g/dL (12.0-15.0); Lymphocyte # 1.21 X10^3/ul (0.83-4.51); Lymphocyte % 11.3 % (19-41); Mean Corp Hgb Conc 32.1 g/dL (32-36); Mean Corpuscular Volume 96.5 fL (81-99); Mean Platelet Vol. 10.1 fl (6.2-12.0); Monocyte# 0.88 X10^3/uL; Monocyte% 8.2 % (0-10); NRBC Flagged by Analyzer 0 % (0-5); Neutrophil # 8.43 X10^3/uL (2.7-7.7); Platelet Count 299 K/mm3 (150-450); RBC Distribution Width CV 13.3 % (11.6-14.6); RBC Distribution Width SD 47.8 fl (35.1-43.9); Red Blood Count 3.42 M/mm3 (4.2-5.4); White Blood Count 10.7 K/mm3 (4.4-11.0)
[2021-09-16 06:54] LABS: Anion Gap 6 (5-15); BUN 16 mg/dL (7-18); BUN/Creat Ratio 19.4 RATIO (10-20); Calcium,Total 8.9 mg/dL (8.5-10.1); Chloride 110 mmol/L (98-107); Creatinine, Serum 0.83 mg/dL (0.55-1.02); EST Glomerular Filtration Rate 72 mL/min (>60); Est Glom Filt Rate - Afr Amer 87 mL/min (>60); Estimated Creatinine Clearance 50.57 ml/min; Glucose 95 mg/dL (74-106); Potassium 3.7 mmol/L (3.5-5.1); Sodium Level 142 mmol/L (136-145)
[2021-09-16] MEDS: Arthritis Pain Compound 60 CLICK TUBE TOPICAL ×2 (08:52→21:43)
[2021-09-16] MEDS: Losartan Potassium 100 MG Tablet PO (08:53)
[2021-09-16] MEDS: DULoxetine Hcl 30 MG Capsule PO (08:53)
[2021-09-16] MEDS: Isosorbide Mononitrate 60 MG Tablet PO ×2 (08:53→21:44)
[2021-09-16] MEDS: Ranolazine 500 MG Tablet 1000 MG PO ×2 (08:53→21:45)
[2021-09-16] MEDS: TICAGRELOR 90 MG TABLET PO ×2 (08:53→21:44)
[2021-09-16] MEDS: Pantoprazole Sodium 20 MG Tablet PO (08:53)
[2021-09-16] MEDS: predniSONE 20 MG Tablet 40 MG PO (08:53)
[2021-09-16] MEDS: Metoprolol(XL)Succ 25 MG Tablet PO (08:54)
[2021-09-16] MEDS: Enoxaparin 40 MG/0.4 ML Syringe SC (08:54)
[2021-09-16] MEDS: 0.9% Saline Lock 10 ML Syringe IV ×3 (09:03→20:05)
[2021-09-16] MEDS: oxyCODONE 5 MG Tablet 7.5 MG PO ×2 (09:03→20:06)
--- NOTE | 2021-09-16 09:18 | CASEMGMT ---
Per physician patient is agreeable to SNF. SW met with patient, introduced self and role at [facility]. SW asked patient if she plans on going home with home health or going somewhere for rehab. Patient stated she was hoping to do rehab in [facility] TCU. SW told patient SW will check to see if they have beds available. SAMUEL spoke with Veronica and she will review patient's chart. Rubia SILVA
--- NOTE | 2021-09-16 10:05 | CASEMGMT ---
TCU can take patient. Veronica will start pre-cert. SW let patient know that TCU can take her. SW told patient she will stay in the hospital until her insurance approves her. Patient said if her insurance doesn't approve her she cannot go to TCU. SW told her that is correct she would have to go home with home health or outpatient therapy. SW told her SW will let her know when SW hears something. Rubia SILVA
[2021-09-16] MEDS: Ceftriaxone 1 GM/50 ML BAG IV (11:00)
--- NOTE | 2021-09-16 14:02 | PCM.PN.HOSP ---
Documented by User: Santiago MEHTA 09/16/21 14:11 Subjective Subjective Patient is a 76-year-old female comfortably resting in bed, alert and orient x3. Patient reports no shortness of breath. Denies development of any new symptoms overnight. Does not appear in acute distress. Objective Data Objective Data Vital Signs: Vital Signs Temp Pulse Resp BP Pulse Ox 99.2 F H 83 18 169/75 H 95 09/16/21 08:48 09/16/21 08:54 09/16/21 08:48 09/16/21 08:54 09/16/21 11:00 Oxygen Flow Rate (L/min) 2 Oxygen Delivery Method Nasal Cannula Weight: 194 lb 0.108 oz Body Mass Index (BMI) 30.2 Intake & Output: Intake and Output for Last 24 Hours 09/14/21 09/15/21 09/16/21 23:59 23:59 23:59 Intake Total 3900.25 / 3900.25 365 / 365 305 / 305 Output Total 300 / 300 Balance 3900.25 / 3900.25 365 / 365 5 / 5 Lab / Micro Data Result Diagrams: 09/16/21 05:56 09/16/21 05:56 Labs: Laboratory Results - last 24 hr 09/16/21 05:56: WBC 10.7, RBC 3.42 L, Hgb 10.6 L, Hct 33.0 L, MCV 96.5, MCH 31.0, MCHC 32.1, RDW Std Deviation 47.8 H, RDW Coeff of Fredo 13.3, Plt Count 299, MPV 10.1, Immature Gran % (Auto) 0.600, Neut % (Auto) 79.0 H, Lymph % (Auto) 11.3 L, [place] % (Auto) 8.2, Eos % (Auto) 0.7, Baso % (Auto) 0.2, Absolute Neuts (auto) 8.4 H, Absolute Lymphs (auto) 1.21, Nucleated RBC % 0 09/16/21 05:56: Sodium 142, Potassium 3.7, Chloride 110 H, Carbon Dioxide 26.0, Anion Gap 6, BUN 16, Creatinine 0.83, Estim Creat Clear Calc 50.57, Est GFR (MDRD) Af Amer 87, Est GFR (MDRD) Non-Af 72, BUN/Creatinine Ratio 19.4, Glucose 95, Calcium 8.9 Micro: Microbiology 09/13/21 04:58 Blood Culture (Wb) - Left Hand Blood Culture - Preliminary No growth in 48 hours. 09/12/21 13:30 Blood Culture (Wb) - Anticubital Right Blood Culture - Preliminary No growth in 48 hours. 09/12/21 15:50 Mucosa - Nasopharyngeal Respiratory Panel (PCR) - Final 09/12/21 15:10 Interface Orders Streptococcus pneumoniae Antigen (M - Final 09/12/21 15:10 Interface Orders Legionella Antigen - Final Physical Exam Const alert, oriented x3 and no apparent distress HEENT head/scalp atraumatic and moist oral mucous membranes Head and Scalp: normocephalic Eyes PERRL, EOMs intact bilaterally and conjunctivae normal Neck no lymphadenopathy, supple and no JVD Resp normal respiratory effort, no retractions and no use of accessory muscles Cardio regular rate, regular rhythm and no JVD GI normal to inspection, nondistended, normoactive bowel sounds and soft to palpation Extremity normal to inspection, full ROM and no clubbing, cyanosis or edema Skin no rashes or lesions noted, no wounds and skin turgor normal Neuro CN's II-XII intact bilaterally Psych affect normal Assessment & Plan Assessment/Plan (1) Pulmonary infiltrates: PLAN: Day 3 Discharge planning: Currently awaiting pre-CERT to TCU. 1) acute hypoxia secondary to community-acquired pneumonia Currently requiring 2 L to maintain oxygen saturations at 95%, patient not on oxygen at baseline. Legionella and strep pneumo urine antigens negative, blood cultures negative, viral respiratory panel negative. We will continue antibiotic course given ongoing hypoxia. 2) chronic back pain Imaging thus far has revealed no acute reason as to patient's ongoing back pain. We will continue scheduled and as needed medications, patient to discharge to TCU pending pre-CERT. 3) CAD status post CABG/HTN/hyperlipidemia Continue home BP regimen, continue aspirin and Brilinta. Not on statin medication due to allergy. 4) GERD Continue PPI. 5) anxiety/depression Continue Cymbalta. DVT prophylaxis - Lovenox Patient seen by Santiago Pretty PA-C, under the supervision of Dr. Richard. Documented by User: Dr. Cain Richard MD 09/16/21 14:46 Objective Data Lab / Micro Data Result Diagrams: 09/16/21 05:56 09/16/21 05:56 Assessment & Plan Addt'l Comments This patient was seen in conjunction with Santiago Pretty PA-C. I have independently interviewed and examined the patient and reviewed pertinent historical, laboratory, and other data. Please refer to Santiago Pretty PA-C's note for details of this patient's presentation, findings, and recommendations. I have reviewed Santiago Pretty PA-C's note and concur with documented findings. In brief, patient is a 76-year-old lady transferred from [facility] with pain in between both shoulders. CT of the chest obtained on admission demonstrated bibasilar pulmonary infiltrates worse on the right side with mild increased markings in the right middle lobe. An assessment of acute hypoxic respiratory failure secondary to pneumonia made admitted to a monitored bed for further management Physical Examination: GENERAL: cooperative HEENT: Atraumatic; EYES; Anicteric, Normal Conjunctiva NECK; supple, normal thyroid, RESPIRATORY: Diminished to auscultation CARDIOVASCULAR: Regular S1 S2, GI: soft, normoactive bowel sounds, : No Renal angle tenderness; EXTREMITIES: No edema, no clubbing, MUSCULOSKELETAL: no muscle wasting NEURO: Awake; no lateralizing signs. SKIN: No Rash PSYCH; Flat affect Assessment: 1. Acute hypoxic respiratory failure 2. Community-acquired pneumonia 3. Coronary artery disease with previous CABG 4. Essential hypertension 5. Dyslipidemia 6. Chronic back pain 7. GERD 8. Class I obesity with BMI of 33.3 9. Depression with anxiety 10. DVT prophylaxis Recommendations: 1. I have discussed the results of my overview and impressions with the patient 2. Options for management were reviewed Total time spent by myself and the advanced practice practitioner evaluating patient, reviewing labs, subsequent management decisions, discussion with patient as well as other providers 40 minutes ( 25 of which was spent by myself) Charges/Coding Visit Charges Inpatient E&M: 53191 Subs Hosp L2
--- NOTE | 2021-09-16 15:56 | CHAPLAIN ---
Type of Pastoral Visit _x__ Initial Visit ___ Follow-up Visit ___ On-call Visit ___ General Patient Visit ___ Spiritual Assessment ___ Family Conference ___ Bereavement ___ Rapid Response ___ Code Blue ___ Other (describe below) Pastoral Care Referral From _x__ Patient ___ Family ___ Nurse ___ Physician ___ Faceter ___ Logging Equipment Operator ___ Other (describe below) Sacrament/Intervention _x__ Active listening ___ Anointing ___ Rastafari ___ Bereavement ___ Communion _x__ Bhumi exploration ___ _x__ Life review _x__ Prayer ___ Reconciliation ___ Sacrament of Sick _x__ Supportive presence ___ Wedding ___ Other (describe below) Pastoral Comments patient states that had requested to see the slate picker four days ago on admission; unfortunately this was over time of day off and weekend; pt was glad to talk and gave her story and current health needs; pt states that she has had much loss of family and friends recently and has been dealing with COVID after affects; pt is person of bhumi in God and relies on that for support along with family members; pt requests prayer support
[2021-09-16] MEDS: Acetaminophen 325 MG Tablet 650 MG PO (20:05)
[2021-09-16] MEDS: Docusate Sodium 100 MG Capsule 200 MG PO (21:44)
[2021-09-16] MEDS: hydrOXYzine PAM 25 MG Capsule PO (21:45)
[2021-09-16] MEDS: hydrALAZINE 20 MG/ML Vial 10 MG IV (21:54)
--- NOTE | 2021-09-16 21:58 | NURSING ---
Hydralazine admin for BP 196/97 patient asympotmatic Patient complain of sob
--- NOTE | 2021-09-16 21:59 | NURSING ---
Hydralazine admin for BP elevation 196/97 Patient complaining of SOB SP02 90-92% 1L 02 applied
[2021-09-17] VITALS (8 sets, daily range): BP systolic 147–192; BP diastolic 70–86; PULSE 71–80; RESP 14–18; TEMP 37–37.3; O2SAT 88–97
[2021-09-17] MEDS: Gabapentin 300 MG Capsule PO (06:14)
--- NOTE | 2021-09-17 08:07 | CASEMGMT ---
SAMUEL received a call from Veronica and patient was denied by insurance for SNF. SW will notify physician and patient. Phone number for peer to peer is option 4 reference #[id number] must be done by noon today if going to complete. Rubai Mayo CYCLING INSTRUCTOR SHIRA
[2021-09-17] MEDS: oxyCODONE 5 MG Tablet 7.5 MG PO (09:24)
[2021-09-17] MEDS: Acetaminophen 325 MG Tablet 650 MG PO (09:24)
--- NOTE | 2021-09-17 09:24 | CASEMGMT ---
SAMUEL spoke with patient and let her know that insurance denied her to go to TCU. Patient said she will go home with home health. SAMUEL notified RN DAISY, Nadine Fischer. Plan: Home with home health. Rubia SILVA
[2021-09-17] MEDS: Ceftriaxone 1 GM/50 ML BAG IV (09:26)
[2021-09-17] MEDS: predniSONE 20 MG Tablet 40 MG PO (09:27)
[2021-09-17] MEDS: Arthritis Pain Compound 60 CLICK TUBE TOPICAL (09:27)
[2021-09-17] MEDS: 0.9% Saline Lock 10 ML Syringe IV (09:27)
[2021-09-17] MEDS: Isosorbide Mononitrate 60 MG Tablet PO (09:28)
[2021-09-17] MEDS: TICAGRELOR 90 MG TABLET PO (09:28)
[2021-09-17] MEDS: Pantoprazole Sodium 20 MG Tablet PO (09:28)
[2021-09-17] MEDS: Losartan Potassium 100 MG Tablet PO (09:28)
[2021-09-17] MEDS: Ranolazine 500 MG Tablet 1000 MG PO (09:28)
[2021-09-17] MEDS: DULoxetine Hcl 30 MG Capsule PO (09:28)
[2021-09-17] MEDS: Metoprolol(XL)Succ 25 MG Tablet PO (09:29)
[2021-09-17] MEDS: Enoxaparin 40 MG/0.4 ML Syringe SC (09:32)
--- NOTE | 2021-09-17 10:38 | CASEMGMT ---
SAMUEL received a message to call patient's . SAMUEL called patient's Marquis. SAMUEL explained that patient's insurance does not feel patient needs a halfway level of care for her rehab. Insurance feels patient would be fine going home with home health or outpatient therapy. Marquis said he spoke with insurance and they told him that it was probably the way the doctor requested SNF. SAMUEL explained that insurance looks at patient's therapy notes and she is contact guard waking 50-70 feet. That is why patient was denied. Marquis asked about oxygen. SAMUEL let him know that the RN CM will work with them on setting this up. Marquis asked for a time frame for discharge and SAMUEL told him SW cannot give him a time frame as the physician has not completed any of patient's discharge paperwork. SAMUEL told him patient's RN will be in touch with him. Rubia SILVA
--- NOTE | 2021-09-17 10:51 | PCM.DC ---
Discharge Instructions Diet Discharge Diet: No restrictions Activity Discharge Activity: Return to Normal Activity Weight Bearing Status: Weight bearing as tolerated Dressing / Incision Call your doctor if you observe: Fever of 101 or Higher, Numbness or Tingling, Shortness of breath, Dizziness, Chest pain, Increased palpitations (irregular heartbeat) and Calf discomfort Follow Up Care Please Follow Up With: Primary care provider When: Within the next two weeks. Test Results: Test results from this visit will be discussed in further detail at your follow-up appointment, if applicable. Discharge Plan Admission Admit Date/Time: 09/13/21 14:08 Primary Reason for Your Visit: Shortness of breath Attending Provider: Cain Richard Primary Care Provider: Stacie Rivers NP Discharge Orders/Prescriptions Prescriptions: New prednisone 20 mg tablet See Taper mg PO DAILY Qty: 15 RF: 0 Continued furosemide [Lasix] 20 mg tablet 20 mg PO DAILY PRN PRN (Reason: fluid) RF: 0 citalopram 20 MG tablet 20 mg PO QHS RF: 0 ticagrelor 90 mg tablet 90 mg PO BID RF: 0 pantoprazole 20 mg tablet,delayed release (DR/EC) 20 mg PO DAILY RF: 0 docusate sodium 100 mg Capsule 200 mg PO QHS RF: 0 hydroxyzine HCl 25 mg Tablet 25 mg PO QHS RF: 0 gabapentin 100 mg capsule 200 mg PO BID RF: 0 oxycodone-acetaminophen 7.5-325 mg tablet 1 tab PO Q6H PRN (Reason: Pain) RF: 0 baclofen 5 mg tablet 2.5 - 5 mg PO TID PRN (Reason: Spasms) RF: 0 isosorbide mononitrate 60 mg tablet extended release 24 hr 60 mg PO BID Qty: 180 RF: 3 losartan 100 mg tablet 100 mg PO DAILY Qty: 90 RF: 3 metoprolol succinate 25 mg tablet extended release 24 hr 25 mg PO DAILY Qty: 90 RF: 3 nitroglycerin 0.4 mg tablet, sublingual 0.4 mg SL PRN PRN (Reason: Cardiac/Chest Pain) Qty: 25 RF: 4 ranolazine 1,000 mg tablet extended release 12 hr 1,000 mg PO BID Qty: 180 RF: 3 Referrals / Follow Up: Stacie Rivers NP, CHAIRMAN & CHIEF EXECUTIVE OFFICER-C [Primary Care Provider] - Within 2 Weeks Disposition Disposition (needs filled in before D/C Order can be placed): Home, Self Care
--- NOTE | 2021-09-17 11:16 | CASEMGMT ---
Addendum entered by Nadine Valencia 09/17/21 12:17: Per Roxanne at [facility], they can accept pt with SOC 09/18/21. Pt updated, voices understanding. Robinson GALLARDO CM Addendum entered by Nadine Valencia 09/17/21 11:20: Pt qualifies for 2L w/ exertion home oxygen and referral faxed to [facility] as pt states no preference. Robinson GALLARDO CM Original Note: Pt provided a list of HHC and DME providers including quality and resource use data and consistent with the pt's preferred geographic region, medical needs and insurance network. Pt states no preference for DME company and states would like [facility]. Order placed for SN, PT/OT and call to Key at [facility] with referral. CM to follow. Robinson GALLARDO CM
--- NOTE | 2021-09-17 12:18 | PHA.DC.MC ---
Pharmacy Service has performed discharge medication reconciliation and counseling for this patient. 1. DULOXETINE 30MG PO DAILY 2. PREDNISONE 40MG PO DAILYCM X 3 DAYS, THEN 30MG X 3 DAYS, THEN 20MG X 3 DAYS, THEN 10MG X 3 DAYS The patient's discharge medication list was reviewed for discrepancies and discrepancies were resolved. Home Medications furosemide 20 mg tablet 20 mg PO DAILY PRN PRN tab 01/30/21 isosorbide mononitrate 60 mg tablet,extended release 24 hr 60 mg PO BID #180 tab 02/01/21 losartan 100 mg tablet 100 mg PO DAILY #90 tab 02/01/21 metoprolol succinate 25 mg tablet,extended release 24 hr 25 mg PO DAILY #90 tab 02/01/21 nitroglycerin 0.4 mg sublingual tablet 0.4 mg SL PRN PRN #25 tab.subl 02/01/21 ranolazine 1,000 mg tablet,extended release,12 hr 1,000 mg PO BID #180 tab 02/01/21 ticagrelor 90 mg PO BID 05/14/21 baclofen 2.5 - 5 mg PO TID PRN 09/12/21 docusate sodium 200 mg PO QHS 09/12/21 gabapentin 200 mg PO BID 09/12/21 hydroxyzine HCl 25 mg PO QHS 09/12/21 oxycodone-acetaminophen 1 tab PO Q6H PRN 09/12/21 pantoprazole 20 mg PO DAILY 09/12/21 duloxetine 30 mg PO DAILY #30 cap 09/17/21 prednisone See Taper PO DAILY #15 tab 09/17/21 The patient was counseled on the following discharge medications and changes in medications for homegoing were reviewed. The Reason for Use, instructions for use, and potential side effects were reviewed for all new medications. The patient's questions regarding all of their medications were answered. The patient was able to verbally demonstrate an understanding of their discharge medications.
--- NOTE | 2021-09-17 14:07 | DS.PCM_ITS ---
Documented by User: Santiago MEHTA 09/17/21 14:18 Providers Date of Admission: 09/13/21 Date of Discharge: 09/17/21 Primary Care Physician: HENRIK Judge Reason For Visit: BL PNA, CHEST/BACK PAIN Diagnosis Discharge Diagnosis (1) Pulmonary infiltrates: Status: Acute Code(s): R91.8 - Other nonspecific abnormal finding of lung field Medications at Discharge Home Medications furosemide 20 mg tablet 20 mg PO DAILY PRN PRN tab 01/30/21 isosorbide mononitrate 60 mg tablet,extended release 24 hr 60 mg PO BID #180 tab 02/01/21 losartan 100 mg tablet 100 mg PO DAILY #90 tab 02/01/21 metoprolol succinate 25 mg tablet,extended release 24 hr 25 mg PO DAILY #90 tab 02/01/21 nitroglycerin 0.4 mg sublingual tablet 0.4 mg SL PRN PRN #25 tab.subl 02/01/21 ranolazine 1,000 mg tablet,extended release,12 hr 1,000 mg PO BID #180 tab 02/01/21 ticagrelor 90 mg PO BID 05/14/21 baclofen 2.5 - 5 mg PO TID PRN 09/12/21 docusate sodium 200 mg PO QHS 09/12/21 gabapentin 200 mg PO BID 09/12/21 hydroxyzine HCl 25 mg PO QHS 09/12/21 oxycodone-acetaminophen 1 tab PO Q6H PRN 09/12/21 pantoprazole 20 mg PO DAILY 09/12/21 cefdinir 300 mg PO BID #10 cap 09/17/21 duloxetine 30 mg PO DAILY #30 cap 09/17/21 prednisone See Taper PO DAILY #15 tab 09/17/21 Hospital Course Summary of Care Provided Hospital Course: Patient is a 76-year-old female who was admitted to [facility] on 09/12/2021 with a chief complaint of acute on chronic back pain with hypoxia. Hospital course and management as below. 1) acute hypoxia secondary to community-acquired pneumonia Patient currently satting 95% on room air, did qualify for home oxygen as she did desat down to 88% on room air with ambulation. Legionella and strep pneumo urine antigens negative, blood cultures negative, viral respiratory panel negative. Patient was managed on azithromycin and ceftriaxone throughout admission, was administered antibiotics for 5 days. No antibiotics were provided on discharge. 2) chronic back pain Imaging thus far has revealed no acute reason as to patient's ongoing back pain. Attempted to get patient admitted over to the transitional care unit for ongoing skilled rehab and therapy. Patient was denied by insurance. Patient will go home with home health care. Prednisone taper initiated on discharge. 3) CAD status post CABG/HTN/hyperlipidemia Continue home BP regimen, continue aspirin and Brilinta. Not on statin medication due to allergy. 4) GERD Continue PPI. 5) anxiety/depression Continue Cymbalta. Patient seen by Santiago Pretty PA-C, under the supervision of Dr. Richard. Physical Exam Narrative Patient is a 76-year-old female comfortably resting in bed, alert and orient x3. Patient reports resolution of her shortness of breath from admission. Denies development of any new symptoms overnight. Const alert, oriented x3 and no apparent distress HEENT normocephalic, head/scalp atraumatic and hearing grossly normal bilaterally Eyes PERRL, EOMs intact bilaterally and conjunctivae normal Neck no lymphadenopathy, supple and no JVD Resp normal respiratory effort, no retractions and no use of accessory muscles Cardio regular rate, regular rhythm and no JVD GI normal to inspection, nondistended, normoactive bowel sounds and soft to palpation Extremity normal to inspection Skin no rashes or lesions noted and no wounds Neuro CN's II-XII intact bilaterally Psych affect normal Weight / BMI Weight Weight: 191 lb 2.252 oz Body Mass Index (BMI) 30.2 ABG / Lab / Microbiology Data Result Diagrams: 09/16/21 05:56 09/16/21 05:56 Microbiology: Microbiology 09/13/21 04:58 Blood Culture (Wb) - Left Hand Blood Culture - Preliminary No growth in 48 hours. 09/12/21 13:30 Blood Culture (Wb) - Anticubital Right Blood Culture - Preliminary No growth in 48 hours. 09/12/21 15:50 Mucosa - Nasopharyngeal Respiratory Panel (PCR) - Final 09/12/21 15:10 Interface Orders Streptococcus pneumoniae Antigen (M - Final 09/12/21 15:10 Interface Orders Legionella Antigen - Final D/C Instructions Discharge Diet: No restrictions Weight Bearing Status: Weight bearing as tolerated Call your doctor if you observe: Fever of 101 or Higher, Numbness or Tingling, Shortness of breath, Dizziness, Chest pain, Increased palpitations (irregular heartbeat) and Calf discomfort Please Follow Up With: Primary care provider When: Within the next two weeks. Meaningful Use Info Meaningful Use Diagnoses (Choose all that apply): None applicable Discharge Plan Admission Admit Date/Time: 09/13/21 14:08 Primary Reason for Your Visit: Shortness of breath Attending Provider: Cain Richard Primary Care Provider: Stacie Rivers NP Discharge Orders/Prescriptions Prescriptions: New prednisone 20 mg tablet See Taper mg PO DAILY Qty: 15 RF: 0 duloxetine 30 mg Capsule,Delayed Release(Dr/Ec) 30 mg PO DAILY Qty: 30 RF: 0 cefdinir 300 mg capsule 300 mg PO BID Qty: 10 RF: 0 Continued furosemide [Lasix] 20 mg tablet 20 mg PO DAILY PRN PRN (Reason: fluid) RF: 0 ticagrelor 90 mg tablet 90 mg PO BID RF: 0 pantoprazole 20 mg tablet,delayed release (DR/EC) 20 mg PO DAILY RF: 0 docusate sodium 100 mg Capsule 200 mg PO QHS RF: 0 hydroxyzine HCl 25 mg Tablet 25 mg PO QHS RF: 0 gabapentin 100 mg capsule 200 mg PO BID RF: 0 oxycodone-acetaminophen 7.5-325 mg tablet 1 tab PO Q6H PRN (Reason: Pain) RF: 0 baclofen 5 mg tablet 2.5 - 5 mg PO TID PRN (Reason: Spasms) RF: 0 isosorbide mononitrate 60 mg tablet extended release 24 hr 60 mg PO BID Qty: 180 RF: 3 losartan 100 mg tablet 100 mg PO DAILY Qty: 90 RF: 3 metoprolol succinate 25 mg tablet extended release 24 hr 25 mg PO DAILY Qty: 90 RF: 3 nitroglycerin 0.4 mg tablet, sublingual 0.4 mg SL PRN PRN (Reason: Cardiac/Chest Pain) Qty: 25 RF: 4 ranolazine 1,000 mg tablet extended release 12 hr 1,000 mg PO BID Qty: 180 RF: 3 Discontinued citalopram 20 MG tablet 20 mg PO QHS RF: 0 Referrals / Follow Up: Stacie Rivers NP, [employer]ITY OFFICER-C [Primary Care Provider] - Within 2 Weeks Disposition Disposition (needs filled in before D/C Order can be placed): Home, Self Care Documented by User: Dr. Cain Richard MD 09/17/21 15:28 Providers Date of Admission: 09/13/21 Reason For Visit: BL PNA, CHEST/BACK PAIN Medications at Discharge Home Medications furosemide 20 mg tablet 20 mg PO DAILY PRN PRN tab 01/30/21 isosorbide mononitrate 60 mg tablet,extended release 24 hr 60 mg PO BID #180 tab 02/01/21 losartan 100 mg tablet 100 mg PO DAILY #90 tab 02/01/21 metoprolol succinate 25 mg tablet,extended release 24 hr 25 mg PO DAILY #90 tab 02/01/21 nitroglycerin 0.4 mg sublingual tablet 0.4 mg SL PRN PRN #25 tab.subl 02/01/21 ranolazine 1,000 mg tablet,extended release,12 hr 1,000 mg PO BID #180 tab 02/01/21 ticagrelor 90 mg PO BID 05/14/21 baclofen 2.5 - 5 mg PO TID PRN 09/12/21 docusate sodium 200 mg PO QHS 09/12/21 gabapentin 200 mg PO BID 09/12/21 hydroxyzine HCl 25 mg PO QHS 09/12/21 oxycodone-acetaminophen 1 tab PO Q6H PRN 09/12/21 pantoprazole 20 mg PO DAILY 09/12/21 cefdinir 300 mg PO BID #10 cap 09/17/21 duloxetine 30 mg PO DAILY #30 cap 09/17/21 prednisone See Taper PO DAILY #15 tab 09/17/21 Hospital Course Operations None Summary of Care Provided Minutes Spent on Discharge: 45 Hospital Course: This patient was seen in conjunction with Santiago Pretty PA-C. I have independently interviewed and examined the patient and reviewed pertinent historical, laboratory, and other data. Please refer to Santiago Pretty PA-C's note for details of this patient's presentation, findings, and recommendations. I have reviewed Santiago Pretty PA-C's note and concur with documented findings. In brief, patient is a 76-year-old lady transferred from [facility] with pain in between both shoulders. CT of the chest obtained on admission demonstrated bibasilar pulmonary infiltrates worse on the right side with mild increased markings in the right middle lobe. An assessment of acute hypoxic respiratory failure secondary to pneumonia made admitted to a monitored bed for further management Physical Examination: GENERAL: cooperative HEENT: Atraumatic; EYES; Anicteric, Normal Conjunctiva NECK; supple, normal thyroid, RESPIRATORY: Diminished to auscultation CARDIOVASCULAR: Regular S1 S2, GI: soft, normoactive bowel sounds, : No Renal angle tenderness; EXTREMITIES: No edema, no clubbing, MUSCULOSKELETAL: no muscle wasting NEURO: Awake; no lateralizing signs. SKIN: No Rash PSYCH; Flat affect Assessment: 1. Acute hypoxic respiratory failure 2. Community-acquired pneumonia 3. Coronary artery disease with previous CABG 4. Essential hypertension 5. Dyslipidemia 6. Chronic back pain 7. GERD 8. Class I obesity with BMI of 33.3 9. Depression with anxiety 10. DVT prophylaxis Hospital course; as documented above Total time spent by myself and the advanced practice practitioner evaluating patient, reviewing labs, subsequent management decisions, discussion with patient as well as other providers 40 minutes ( 25 of which was spent by myself) ABG / Lab / Microbiology Data Result Diagrams: 09/16/21 05:56 09/16/21 05:56 Discharge Plan Admission Admit Date/Time: 09/13/21 14:08 Primary Reason for Your Visit: Shortness of breath Attending Provider: Cain Richard Primary Care Provider: Stacie Rivers [employer] OFFICER Discharge Orders/Prescriptions Prescriptions: New prednisone 20 mg tablet See Taper mg PO DAILY Qty: 15 RF: 0 duloxetine 30 mg Capsule,Delayed Release(Dr/Ec) 30 mg PO DAILY Qty: 30 RF: 0 cefdinir 300 mg capsule 300 mg PO BID Qty: 10 RF: 0 Continued furosemide [Lasix] 20 mg tablet 20 mg PO DAILY PRN PRN (Reason: fluid) RF: 0 ticagrelor 90 mg tablet 90 mg PO BID RF: 0 pantoprazole 20 mg tablet,delayed release (DR/EC) 20 mg PO DAILY RF: 0 docusate sodium 100 mg Capsule 200 mg PO QHS RF: 0 hydroxyzine HCl 25 mg Tablet 25 mg PO QHS RF: 0 gabapentin 100 mg capsule 200 mg PO BID RF: 0 oxycodone-acetaminophen 7.5-325 mg tablet 1 tab PO Q6H PRN (Reason: Pain) RF: 0 baclofen 5 mg tablet 2.5 - 5 mg PO TID PRN (Reason: Spasms) RF: 0 isosorbide mononitrate 60 mg tablet extended release 24 hr 60 mg PO BID Qty: 180 RF: 3 losartan 100 mg tablet 100 mg PO DAILY Qty: 90 RF: 3 metoprolol succinate 25 mg tablet extended release 24 hr 25 mg PO DAILY Qty: 90 RF: 3 nitroglycerin 0.4 mg tablet, sublingual 0.4 mg SL PRN PRN (Reason: Cardiac/Chest Pain) Qty: 25 RF: 4 ranolazine 1,000 mg tablet extended release 12 hr 1,000 mg PO BID Qty: 180 RF: 3 Discontinued citalopram 20 MG tablet 20 mg PO QHS RF: 0 Referrals / Follow Up: Stacie Rivers NP, C[employer]ITY OFFICER-C [Primary Care Provider] - Within 2 Weeks Disposition Disposition (needs filled in before D/C Order can be placed): Home, Self Care Charges/Coding Visit Charges Inpatient E&M: 99876 Disch Hosp Hospital Course Operations None
== END 2021-09-17 14:31 | disposition home or self-care (01) | DRG 195 ==
LOC: ED 13:18 → PCU 13:36
PROVIDERS: Family Medicine; Admitting Provider Family Medicine; Emergency Provider Emergency Medicine; PCP Nurse Practitioner Adult Health; Visit Provider Internal Medicine
DX: J18.9 Pneumonia, unspecified organism (principal); E66.9 Obesity, unspecified; I71.4 Abdominal aortic aneurysm, without rupture; I25.10 Atherosclerotic heart disease of native coronary artery without angina pectoris; E78.5 Hyperlipidemia, unspecified; M79.7 Fibromyalgia; K21.9 Gastro-esophageal reflux disease without esophagitis; I25.2 Old myocardial infarction; G62.9 Polyneuropathy, unspecified; F41.9 Anxiety disorder, unspecified; M54.9 Dorsalgia, unspecified; M62.830 Muscle spasm of back; G89.29 Other chronic pain; Z87.19 Personal history of other diseases of the digestive system; Z79.891 Long term (current) use of opiate analgesic; Z79.899 Other long term (current) drug therapy; Z95.1 Presence of aortocoronary bypass graft; Z87.891 Personal history of nicotine dependence; I49.1 Atrial premature depolarization; F32.A Depression, unspecified; R09.02 Hypoxemia; Z68.31 Body mass index [BMI] 31.0-31.9, adult
CPT/HCPCS: 36415; 36600; 71275; 80048; 80053; 82803; 84145; 84484; 85025; 87040; 87449; 87633; 87635; 93005; 94640; 94667; 94668; 97110; 97162; 97166; 97530; 97535; 99285; J7030; J7050; Q9967; A4216; J2405; U0003; U0005

== ENCOUNTER 2021-10-02 15:47 | Emergency (ER) | payer MEDICARE, SELFPAY ==
[2021-10-02 15:49] VITALS: BP 137/55; PULSE 60; RESP 14; TEMP 36.4; O2SAT 96; BMI 15.0
--- NOTE | 2021-10-02 16:04 | CT_ITS ---
STUDY: CT FACIAL BONES WITHOUT CONTRAST REASON FOR EXAM: Female, 76 years old. Left orbit trauma with limited upward gaze RADIATION DOSAGE (If Supplied By Facility): CTDIvol = ( 29.38 ) mGy, DLP = ( 518.07 ) mGycm TECHNIQUE: The patient was scanned in a multi detector CT scanner. Sagittal and coronal images were reconstructed. Individualized dose optimization techniques were used for this CT. COMPARISON: None. FINDINGS: Moderate size hematoma about the left orbit. Normal orbital lackey and orbital contents. Normal nasal bones and anterior nasal spine. Normal facial bones. There is no demonstrated fracture. Healed left temporal craniotomy. Normal visualized paranasal sinuses. CT/Sinus/Facial Bone IMPRESSION: Normal unenhanced CT of the facial bones. Electronically Signed: Gallito Javier MD at 17:08 EDT ,
--- NOTE | 2021-10-02 16:04 | CT_ITS ---
STUDY: CT BRAIN WITHOUT CONTRAST REASON FOR EXAM: Female, 76 years old. trauma suspect bleed RADIATION DOSAGE (If Supplied By Facility): CTDIvol = ( 44.99 ) mGy, DLP = ( 779.24 ) mGycm TECHNIQUE: Transaxial CT imaging of the brain was performed without administration of intravenous contrast material. Individualized dose optimization techniques were used for this CT. COMPARISON: No relevant priors. FINDINGS: Moderate hematoma about the left orbit. Healed left temporal craniotomy. There is mild cerebral atrophy with widening of the extra-axial spaces and ventricular dilatation. There are areas of decreased attenuation within the white matter tracts of the supratentorial brain, consistent with microvascular disease changes. Normal basal ganglia and thalami. Normal brainstem. Normal cerebellum. There is no intracranial hemorrhage. There are no findings of an acute ischemic infarction. Normal visualized paranasal sinuses. CT/Brain/Head without Contrast IMPRESSION: Moderate hematoma about the left orbit. No intracranial hemorrhage. Electronically Signed: Gallito Javier MD at 17:06 EDT ,
--- NOTE | 2021-10-02 16:10 | EDS_ITS ---
HPI History of Present Illness Chief Complaint: Fall Detail of Chief Complaint: Vasovagal syncope with facial and head trauma Informant: patient Onset/Context/Timing Onset: Hours Context: Sudden Onset Timing: Intermittent (Per HPI narrative) Quality: Passed out on commode Location: Residents Current Severity: Mild Maximum Severity: Severe Worsened by: Nausea, vomiting, diarrhea and severe abdominal pain Relieved by: Nothing Associated Symptoms Associated Symptoms: Per a HPI Narrative Narrative: Patient is a 76-year-old woman with history of coronary artery disease, hypertension hyperlipidemia who has been experiencing nausea, vomiting abdominal pain that started today. Patient states she dana from the couch to go to the restroom. She developed severe abdominal pain. The next injury remembers is waking up on the floor. She is on aspirin and Brilinta. She complains of facial pain and mild head pain. She denies headache. She does rep ort neck pain. She denies paresthesia, anesthesia motors presently or upon awakening. She denies fever, chills or night sweats. Prior similar symptoms: No Recent Illness/Hospitalization: No PFSH PFS Medical History Arthritis Atherosclerosis of coronary artery of [place] heart without angina pectoris Brain tumor Chronic low back pain Chronic narcotic use Essential (primary) hypertension Fibromyalgia GERD (gastroesophageal reflux disease) History of non-ST elevation myocardial infarction (NSTEMI) (05/01/19) HLD (hyperlipidemia) Leg cramps Neuropathy Obesity (BMI 30.0-34.9) Osteoarthritis Plantar fasciitis Stomach ulcer Tobacco dependence in remission Unstable angina Home Medications furosemide 20 mg tablet 20 mg PO DAILY PRN PRN tab 01/30/21 [History Last Taken Unknown] isosorbide mononitrate 60 mg tablet,extended release 24 hr 60 mg PO BID #180 tab 02/01/21 [Rx Last Taken 09/11/21] losartan 100 mg tablet 100 mg PO DAILY #90 tab 02/01/21 [Rx Last Taken 09/11/21] metoprolol succinate 25 mg tablet,extended release 24 hr 25 mg PO DAILY #90 tab 02/01/21 [Rx Last Taken 09/11/21] nitroglycerin 0.4 mg sublingual tablet 0.4 mg SL PRN PRN #25 tab.subl 02/01/21 [ Rx Last Taken Unknown] ranolazine 1,000 mg tablet,extended release,12 hr 1,000 mg PO BID #180 tab 02/01/21 [Rx Last Taken 09/11/21] ticagrelor 90 mg PO BID 05/14/21 [History Last Taken 09/11/21] baclofen 2.5 - 5 mg PO TID PRN 09/12/21 [History Last Taken 1 Week Ago ~09/05/21] docusate sodium 200 mg PO QHS 09/12/21 [History Last Taken 09/11/21] gabapentin 200 mg PO BID 09/12/21 [History Last Taken 09/11/21] hydroxyzine HCl 25 mg PO QHS 09/12/21 [History Last Taken Unknown] oxycodone-acetaminophen 1 tab PO Q6H PRN 09/12/21 [History Last Taken 09/12/21 07:45] pantoprazole 20 mg PO DAILY 09/12/21 [History Last Taken 09/11/21] cefdinir 300 mg PO BID #10 cap 09/17/21 [Rx Last Taken Unknown] duloxetine 30 mg PO DAILY #30 cap 09/17/21 [Rx Last Taken Unknown] prednisone See Taper PO DAILY #15 tab 09/17/21 [Rx Last Taken Unknown] ondansetron 4 mg PO Q8H PRN PRN #10 tab 10/02/21 [Rx Last Taken Unknown] oxycodone-acetaminophen 1 tab PO Q6H PRN PRN 5 Days #20 tablet 10/02/21 [Rx Last Taken Unknown] Allergy/AdvReac Type Severity Reaction Status Date / Time isometheptene [From Midrin] Allergy shaking Verified 05/14/21 13:07 Sulfa (Sulfonamide Allergy throat Verified 05/14/21 13:07 Antibiotics) Swelling ezetimibe [From Zetia] AdvReac Severe Pain in Verified 05/14/21 13:07 joints Hwikwdb-Epv-Agw Reductase AdvReac Severe myalgias Verified 05/14/21 13:07 Inhibitor codeine AdvReac Nausea/Vom/ Verified 05/14/21 13:07 Diarrhea dichloralphenazone AdvReac shaking Verified 05/14/21 13:07 [From Midrin] fish oil AdvReac Other Verified 05/14/21 13:07 ibuprofen AdvReac stomachache Verified 05/14/21 13:07 s topiramate [From Topamax] AdvReac I felt Verified 05/14/21 13:07 crazy Family History Grandmother Hypertension Father CVA (cerebral vascular accident) Heart disease Mother Hypertension Cancer Brother Cancer Sister Hypertension Surgical History H/O coronary artery bypass surgery (2006) H/O laminectomy History of bladder surgery History of coronary artery stent placement (05/02/19) History of craniotomy History of fusion of cervical spine History of hysterectomy History of laparoscopic cholecystectomy History of left heart catheterization (08/02/20) Social History household members: spouse Smoking Status: Former smoker how long ago did patient quit smoking: Quit 15 years prior, prior 1-1.5 ppd since teen. alcohol intake: never substance use type: does not use ROS ROS ED Constitutional Constitutional ED: Denies chills, fever(s), subjective, sweats or weight loss Eyes Eyes: Reports other Details: Unable to see out of left eye because of significant soft tissue swelling and ecchymosis ; Denies blurry vision, change in vision or diplopia ENT ENT ED: Denies ear pain, rhinorrhea or sore throat Cardiovascular Cardiovascular: Denies chest pain, palpitations or racing heartbeat Respiratory/Chest Respiratory/Chest: Denies cough, dyspnea, dyspnea on exertion or sputum Gastrointestinal Gastrointestinal: Reports abdominal pain, diarrhea, nausea and vomiting; Denies melena Genitourinary Genitourinary ED: Denies dysuria, hematuria or urinary frequency Musculoskeletal Musculoskeletal: Reports neck pain; Denies arthralgias, back pain or myalgias Integumentary Reports Abrasions; Denies abscess or rash Neurologic Neurologic: Reports headache(s); Denies paresthesias or weakness Endocrine Endocrinology: Denies polydipsia, polyphagia or polyuria Hematologic/Lymphatic Hematologic/Lymphatic: Reports easy bruising; Denies anemia or easy bleeding EXAM Physical Exam Const Vital Signs: 10/02/21 15:49 10/02/21 16:21 10/02/21 17:00 Temperature 97.6 F L Temperature Source Temporal Pulse Rate 60 57 L Respiratory Rate 14 12 Respiratory Effort Normal Respiratory Depth Normal Respiratory Pattern Normal Blood Pressure 137/55 H 127/54 H Blood Pressure Mean 82 78 Pulse Ox 96 98 Oxygen Delivery Method Room Air Room Air Positive well nourished, well developed and obese General Appearance ED: well developed and other Neck is immobilized. Patient is obvious facial trauma. Patient appears uncomfortable. ; Negative for cyanotic, diaphoretic, NAD or pallor Nutritional Appearance: obese HEENT Reports TM's clear and moist mucous membranes HEENT Narrative: Patient has a subconjunctival hemorrhage temporal side of the left globe. Patient is not able to look upward completely. There is no APD. Positive red light reflex. Significant soft tissue swelling with ecchymosis left orbit. There is pain no patient infraorbital rim. trauma and tenderness Tympanic Membrane ED: Yes TM's clear Eyes PERRL; Negative for EOMs intact bilaterally Eyes Narrative: There is a superficial laceration versus skin tear lateral crease of the left orbit. General Eye ED: Negative for pale conjunctiva or scleral icterus Neck no lymphadenopathy and no JVD General: other Chest Wall inspection of chest normal and palpation of chest normal Resp normal respiratory effort and clear to auscultation bilaterally Cardio regular rate, regular rhythm, S1 normal heart sound, S2 normal heart sound and no murmurs GI normal to inspection, nondistended, normoactive bowel sounds and non-distended; Negative for non-tender Palpation: soft Back/Spine no CVA tenderness Cervical Spine: cervical spine tenderness Thoracic Spine / Upper Back: Negative for thoracic spinal tenderness or paraspinal muscle tenderness Extremity normal to inspection General Extremety ED: Negative for edema or tenderness General Extremity: Negative for edema Neuro oriented x3, CN's II-XII intact bilaterally and no sensory deficits noted Neuro Narrative: Negative clonus or Babinski sign. Sensorium / Orientation: alert Motor Exam: strength 5/5 throughout Psych mental status grossly normal Skin General Skin Exam: Negative for jaundice or pallor Lesions: lesion noted MDM MDM MDM Narrative Medical decision making narrative: Patient had a basal vagal syncopal spell while on the commode. With her having blunt head trauma complain of headache amnestic and objective findings concerning for infraorbital fracture will obtain CT of the head and face. Because she has midline cervical tenderness and cannot clear per Nexus criteria will obtain CT of the neck as well. Lab Data Attestation: I reviewed the patient's lab results. Lab results narrative: CBC reveals a mild macrocytic anemia. Glucose is 124. Labs: Laboratory Results - last 24 hr 10/02/21 10/02/21 10/02/21 16:58 16:58 17:12 WBC 9.2 RBC 3.78 L Hgb 11.8 L Hct 37.8 MCV 100.0 H MCH 31.2 MCHC 31.2 L RDW Std Deviation 49.1 H RDW Coeff of Fredo 13.5 Plt Count 207 MPV 10.1 Immature Gran % (Auto) 0.500 Neut % (Auto) 74.1 H Lymph % (Auto) 15.9 L [place] % (Auto) 7.9 Eos % (Auto) 1.2 Baso % (Auto) 0.4 Absolute Neuts (auto) 6.8 Absolute Lymphs (auto) 1.46 Nucleated RBC % 0 Sodium 142 Potassium 4.2 Chloride 110 H Carbon Dioxide 28.0 Anion Gap 4 L BUN 23 H Creatinine 0.93 Estim Creat Clear Calc 32.94 Est GFR (MDRD) Af Amer 76 Est GFR (MDRD) Non-Af 63 BUN/Creatinine Ratio 24.8 H Glucose 126 H Calcium 9.0 POC Glucose 124 H Radiography Diagnostic Testing: Clinical Impression(s) from Imaging Studies Brain CT 10/02/21 16:04 IMPRESSION: Moderate hematoma about the left orbit. No intracranial hemorrhage. Electronically Signed: Gallito Javier MD at 17:06 EDT Reading Location ID and State: [id number] / [employer] Tel , Service support , Facial/Sinus 10/02/21 16:04 IMPRESSION: Normal unenhanced CT of the facial bones. Electronically Signed: Gallito Javier MD at 17:08 EDT , Cervical Spine CT 10/02/21 16:12 IMPRESSION: No acute fracture or subluxation. Electronically Signed: Gallito Javier MD at 17:11 EDT Reading Location ID and State: [id number] / [employer] Tel , Service support , CT of the head, face and neck reveals no evidence of fracture, subluxation or dislocation. There is no into epidural, subdural, traumatic subarachnoid or intraparenchymal contusion. There is significant soft tissue swelling of the left orbit noted. There is no subcutaneous air noted. I did not appreciate a fracture of the orbital floor. C-spine reveals marked degenerative changes. Awaiting formal read by radiologist. Discharge Plan Triage Chief Complaint: Fall ED Provider: William Ahumada Dx/Rx/DC Orders Clinical Impression: Syncope, vasovagal, Combined abdominal pain, vomiting, and diarrhea, CHI (closed head injury), Contusion of face, Acute cervical myofascial strain, Acute hyperglycemia, Superficial laceration of face Instructions: ED Head Injury (Adult), ED Neck Sprain or Strain, ED Fainting, Vagal Reaction, ED Gastroenteritis, Viral (Adult) Prescriptions: New oxycodone-acetaminophen [oxycodone-acetaminophen] 1 TABLET tablet 1 tab PO Q6H PRN PRN (Reason: pain) 5 Days Qty: 20 RF: 0 ondansetron [ondansetron] 4 MG tablet 4 mg PO Q8H PRN PRN (Reason: Nausea) Qty: 10 RF: 0 No Action furosemide [Lasix] 20 mg tablet 20 mg PO DAILY PRN PRN (Reason: fluid) RF: 0 ticagrelor 90 mg tablet 90 mg PO BID RF: 0 pantoprazole 20 mg tablet,delayed release (DR/EC) 20 mg PO DAILY RF: 0 docusate sodium 100 mg Capsule 200 mg PO QHS RF: 0 hydroxyzine HCl 25 mg Tablet 25 mg PO QHS RF: 0 gabapentin 100 mg capsule 200 mg PO BID RF: 0 oxycodone-acetaminophen 7.5-325 mg tablet 1 tab PO Q6H PRN (Reason: Pain) RF: 0 baclofen 5 mg tablet 2.5 - 5 mg PO TID PRN (Reason: Spasms) RF: 0 prednisone 20 mg tablet See Taper mg PO DAILY Qty: 15 RF: 0 duloxetine 30 mg Capsule,Delayed Release(Dr/Ec) 30 mg PO DAILY Qty: 30 RF: 0 cefdinir 300 mg capsule 300 mg PO BID Qty: 10 RF: 0 isosorbide mononitrate 60 mg tablet extended release 24 hr 60 mg PO BID Qty: 180 RF: 3 losartan 100 mg tablet 100 mg PO DAILY Qty: 90 RF: 3 metoprolol succinate 25 mg tablet extended release 24 hr 25 mg PO DAILY Qty: 90 RF: 3 nitroglycerin 0.4 mg tablet, sublingual 0.4 mg SL PRN PRN (Reason: Cardiac/Chest Pain) Qty: 25 RF: 4 ranolazine 1,000 mg tablet extended release 12 hr 1,000 mg PO BID Qty: 180 RF: 3 Primary Care Provider: Stacie Rivers NP Referrals: Stacie Rivers NP, MEDICAL CUSTOMER SERVICE REPRESENTATIVE-[facility] [Primary Care Provider] - 3-5 Days if not improving Activity Restrictions/Additional Instructions: 1. Apply ice to neck and face 6-8 times a day 2. Apply bacitracin ointment to the outside of your left orbit 3. You may feel worse over the next 24 to 48 hours Disposition Disposition: Home, Self Care
--- NOTE | 2021-10-02 16:12 | CT_ITS ---
STUDY: CT CERVICAL SPINE WITHOUT CONTRAST REASON FOR EXAM: Female, 76 years old. Pain status post trauma RADIATION DOSAGE (If Supplied By Facility): CTDIvol = ( 23.38 ) mGy, DLP = ( 413.07 ) mGycm TECHNIQUE: High resolution transaxial imaging was performed without contrast material. Sagittal and coronal images were reconstructed. Individualized dose optimization techniques were used for this CT. COMPARISON: None FINDINGS: Normal craniovertebral junction. There is hypertrophy of the transverse ligament of the atlas with mild posterior displacement of the superior and inferior longitudinal fibers of the cruciform ligament, producing minimal ventral thecal sac flattening, but without cervical cord impingement. There are mild degenerative changes in the anterior atlantoaxial articulation. Normal odontoid process. Normal cervical lordosis. Normal vertebral bodies and posterior osseous elements. C2-3: 2 mm of anterolisthesis of C2 on C3. No spinal stenosis or neural foraminal stenosis. C3-4: Mild broad disc osteophyte complex and bilateral uncovertebral hypertrophy produces mild spinal stenosis and mild bilateral neural foraminal stenosis. C4-5: Moderate broad disc osteophyte complex and bilateral hypertrophy produces moderate spinal stenosis and moderate bilateral neural foraminal stenosis. C5-6: Mild broad disc osteophyte complex with a glucose disc space with mild spinal stenosis but no neural foraminal stenosis. C6-7: Moderate broad disc osteophyte complex and bilateral adrenal hypertrophy produces moderate spinal stenosis and moderate bilateral neural foraminal stenosis. C7-T1: Normal endplates. Normal disc height and morphology. Normal central canal and intervertebral neuroforamina. Normal visualized soft tissue structures. CT/Spine Cervical without Contras IMPRESSION: No acute fracture or subluxation. Electronically Signed: Gallito Javier MD at 17:11 EDT ,
[2021-10-02] MEDS: Ondansetron 4 MG/2 ML Vial IV (16:20)
[2021-10-02] MEDS: Morphine 4 MG/ML Syringe IV ×2 (16:50→20:16)
[2021-10-02 17:00] VITALS: BP 127/54; PULSE 57; RESP 12; O2SAT 98
[2021-10-02 17:16] LABS: Bedside Glucose 124 mg/dL (74-106)
[2021-10-02 17:17] LABS: Absolute Lymphocyte Count 1.46 X10^3/uL (0.83-4.51); Absolute Neutrophil Count 6.8 X10^3/uL (2.0-7.7); Basophil# 0.04 X10^3/uL; Basophil% 0.4 % (0-1); Eosinophil# 0.11 X10^3/uL; Eosinophils% 1.2 % (0-5); Hematocrit 37.8 % (37-47); Hemoglobin 11.8 g/dL (12.0-15.0); Lymphocyte # 1.46 X10^3/ul (0.83-4.51); Lymphocyte % 15.9 % (19-41); Mean Corp Hgb Conc 31.2 g/dL (32-36); Mean Corpuscular Hgb 31.2 pg (27.0-32.0); Mean Platelet Vol. 10.1 fl (6.2-12.0); Monocyte# 0.72 X10^3/uL; Monocyte% 7.9 % (0-10); NRBC Flagged by Analyzer 0 % (0-5); Neutrophil # 6.79 X10^3/uL (2.7-7.7); Neutrophil % 74.1 % (47-70); Platelet Count 207 K/mm3 (150-450); RBC Distribution Width CV 13.5 % (11.6-14.6); RBC Distribution Width SD 49.1 fl (35.1-43.9); Red Blood Count 3.78 M/mm3 (4.2-5.4); White Blood Count 9.2 K/mm3 (4.4-11.0)
[2021-10-02 17:32] LABS: Anion Gap 4 (5-15); BUN 23 mg/dL (7-18); BUN/Creat Ratio 24.8 RATIO (10-20); Chloride 110 mmol/L (98-107); Creatinine, Serum 0.93 mg/dL (0.55-1.02); EST Glomerular Filtration Rate 63 mL/min (>60); Est Glom Filt Rate - Afr Amer 76 mL/min (>60); Estimated Creatinine Clearance 32.94 ml/min; Glucose 126 mg/dL (74-106); Potassium 4.2 mmol/L (3.5-5.1); Sodium Level 142 mmol/L (136-145)
[2021-10-02 18:35] VITALS: BP 135/68; PULSE 57; RESP 18; O2SAT 97
[2021-10-02 19:13] VITALS: BP 127/55; PULSE 54; RESP 16; O2SAT 98
[2021-10-02 20:01] VITALS: BP 142/66; PULSE 55; RESP 18; O2SAT 97
== END 2021-10-02 21:22 | disposition home or self-care (01) ==
PROVIDERS: Emergency Provider Emergency Medicine; PCP Nurse Practitioner Adult Health; Visit Provider Emergency Medicine
DX: S01.112A Laceration without foreign body of left eyelid and periocular area, initial encounter (principal); R55 Syncope and collapse; R10.9 Unspecified abdominal pain; R11.2 Nausea with vomiting, unspecified; R19.7 Diarrhea, unspecified; S16.1XXA Strain of muscle, fascia and tendon at neck level, initial encounter; S05.12XA Contusion of eyeball and orbital tissues, left eye, initial encounter; H11.32 Conjunctival hemorrhage, left eye; E66.9 Obesity, unspecified; D53.9 Nutritional anemia, unspecified; R73.9 Hyperglycemia, unspecified; M19.90 Unspecified osteoarthritis, unspecified site; I25.10 Atherosclerotic heart disease of native coronary artery without angina pectoris; M79.7 Fibromyalgia; K21.9 Gastro-esophageal reflux disease without esophagitis; I25.2 Old myocardial infarction; E78.5 Hyperlipidemia, unspecified; G62.9 Polyneuropathy, unspecified; Z87.19 Personal history of other diseases of the digestive system; Z79.82 Long term (current) use of aspirin; Z79.899 Other long term (current) drug therapy; W19.XXXA Unspecified fall, initial encounter; G89.29 Other chronic pain; Z79.891 Long term (current) use of opiate analgesic; Z95.1 Presence of aortocoronary bypass graft; Z87.891 Personal history of nicotine dependence
CPT/HCPCS: 12011; 70450; 70486; 72125; 80048; 82962; 85025; 96374; 96375; 96376; 99285; A4216; J2405

== ENCOUNTER 2021-10-06 13:47 | Emergency (ER) | payer MEDICARE, SELFPAY ==
[2021-10-06 13:48] VITALS: BP 188/75; PULSE 76; RESP 17; TEMP 36.5; O2SAT 96; BMI 29.9
--- NOTE | 2021-10-06 14:31 | CT_ITS ---
STUDY: CT BRAIN WITHOUT CONTRAST REASON FOR EXAM: Female, 76 years old. Head injury RADIATION DOSAGE (If Supplied By Facility): CTDIvol = ( 44.99 ) mGy, DLP = ( 748.3 ) mGycm TECHNIQUE: Transaxial CT imaging of the brain was performed without administration of intravenous contrast material. Individualized dose optimization techniques were used for this CT. COMPARISON: No relevant priors. FINDINGS: Normal soft tissue structures. Status post left frontotemporal craniotomy. Mild bilateral hyperostosis frontalis interna essentially normal anatomic variant in elderly female patients. Mild cortical and central atrophy. Moderate chronic microvascular ischemic change periventricular white matter. There is encephalomalacia in the inferior left frontal lobe. This is likely secondary to prior craniotomy for reported resection of benign brain neoplasm in 2005. Encephalomalacia measures 2.08 cm transverse by 1.8 cm AP by 1.6 cm craniocaudal. There are small dystrophic calcifications in the medial lentiform nuclei bilaterally likely age related. There is no intracranial hemorrhage. There are no findings of an acute ischemic infarction. Normal visualized paranasal sinuses. CT/Brain/Head without Contrast IMPRESSION: No acute changes. Status post left frontotemporal craniotomy. Inferior left frontal encephalomalacia 2.08 cm transverse by 1.8 cm AP by transverse by 1.06 cm craniocaudal likely secondary to prior craniotomy. Mild cortical and central atrophy. Mild hyperostosis frontalis interna. Dystrophic calcifications basal ganglia bilaterally likely age-related. Electronically Signed: Joseph Linda MD at 16:34 EDT ,
--- NOTE | 2021-10-06 15:46 | EDS_ITS ---
HPI History of Present Illness Chief Complaint: Eye Problem Informant: patient Onset/Context/Timing Location: Left Eye Onset: Today Context: Sudden Onset Timing: Continuous Worsened by: Bending forward Relieved by: Nothing Associated Symptoms History of injury: Yes Narrative Narrative: Patient presents with left eye bleeding and redness that began today. Patient states she fell recently and was seen here. Patient had a suture placed in her left periorbital area for laceration at that time. Patient had a CT scan done at that time which did not show any acute bleeding. Patient states that today she woke up and she noted some bleeding from her left eye. Patient noted some subconjunctival bleeding. Patient denies any visual changes. Patient states she has more pain when she bends her head forward. Patient does admit to some sweats but denies any fevers or chills. Patient admits to some pain in her neck and back since the fall. Patient complains of pain over her right posterior shoulder area. Patient states this is similar to the pain she had when she had pneumonia. Patient is concerned that she may have pneumonia again. [facility] Medical History Arthritis Atherosclerosis of coronary artery of [place] heart without angina pectoris Brain tumor Chronic low back pain Chronic narcotic use Essential (primary) hypertension Fibromyalgia GERD (gastroesophageal reflux disease) History of non-ST elevation myocardial infarction (NSTEMI) (05/01/19) HLD (hyperlipidemia) Leg cramps Neuropathy Obesity (BMI 30.0-34.9) Osteoarthritis Plantar fasciitis Stomach ulcer Tobacco dependence in remission Unstable angina Home Medications furosemide 20 mg tablet 20 mg PO DAILY PRN PRN tab 01/30/21 [History Last Taken Unknown] isosorbide mononitrate 60 mg tablet,extended release 24 hr 60 mg PO BID #180 tab 02/01/21 [Rx Last Taken 09/11/21] losartan 100 mg tablet 100 mg PO DAILY #90 tab 02/01/21 [Rx Last Taken 09/11/21] metoprolol succinate 25 mg tablet,extended release 24 hr 25 mg PO DAILY #90 tab 02/01/21 [Rx Last Taken 09/11/21] nitroglycerin 0.4 mg sublingual tablet 0.4 mg SL PRN PRN #25 tab.subl 02/01/21 [Rx Last Taken Unknown] ranolazine 1,000 mg tablet,extended release,12 hr 1,000 mg PO BID #180 tab 02/01/21 [Rx Last Taken 09/11/21] ticagrelor 90 mg PO BID 05/14/21 [History Last Taken 09/11/21] baclofen 2.5 - 5 mg PO TID PRN 09/12/21 [History Last Taken 1 Week Ago ~09/05/21] docusate sodium 200 mg PO QHS 09/12/21 [History Last Taken 09/11/21] gabapentin 200 mg PO BID 09/12/21 [History Last Taken 09/11/21] hydroxyzine HCl 25 mg PO QHS 09/12/21 [History Last Taken Unknown] oxycodone-acetaminophen 1 tab PO Q6H PRN 09/12/21 [History Last Taken 09/12/21 07:45] pantoprazole 20 mg PO DAILY 09/12/21 [History Last Taken 09/11/21] cefdinir 300 mg PO BID #10 cap 09/17/21 [Rx Last Taken Unknown] duloxetine 30 mg PO DAILY #30 cap 09/17/21 [Rx Last Taken Unknown] prednisone See Taper PO DAILY #15 tab 09/17/21 [Rx Last Taken Unknown] ondansetron 4 mg PO Q8H PRN PRN #10 tab 10/02/21 [Rx Last Taken Unknown] oxycodone-acetaminophen 1 tab PO Q6H PRN PRN 5 Days #20 tablet 10/02/21 [Rx Last Taken Unknown] Allergy/AdvReac Type Severity Reaction Status Date / Time isometheptene [From Midrin] Allergy shaking Verified 10/06/21 13:48 Sulfa (Sulfonamide Allergy throat Verified 10/06/21 13:48 Antibiotics) Swelling ezetimibe [From Zetia] AdvReac Severe Pain in Verified 10/06/21 13:48 joints Cjrreje-PDP-AgQ Reductase AdvReac Severe myalgias Verified 10/06/21 13:48 Inhibitor [Hxebvyh-Wij-Oua Reductase Inhibitor] codeine AdvReac Nausea/Vom/ Verified 10/06/21 13:48 Diarrhea dichloralphenazone AdvReac shaking Verified 10/06/21 13:48 [From Midrin] fish oil AdvReac Other Verified 10/06/21 13:48 ibuprofen AdvReac stomachache Verified 10/06/21 13:48 s topiramate [From Topamax] AdvReac I felt Verified 10/06/21 13:48 crazy Family History Grandmother Hypertension Father CVA (cerebral vascular accident) Heart disease Mother Hypertension Cancer Brother Cancer Sister Hypertension Surgical History H/O coronary artery bypass surgery (2006) H/O laminectomy History of bladder surgery History of coronary artery stent placement (05/02/19) History of craniotomy History of fusion of cervical spine History of hysterectomy History of laparoscopic cholecystectomy History of left heart catheterization (08/02/20) Social History household members: spouse Smoking Status: Former smoker how long ago did patient quit smoking: Quit 15 years prior, prior 1-1.5 ppd since teen. alcohol intake: never substance use type: does not use ROS ROS ED Constitutional Constitutional ED: Reports sweats; Denies chills or fever(s) Eyes Eyes: Denies blurry vision or change in vision ENT ENT ED: Denies rhinorrhea or sore throat Cardiovascular Cardiovascular: Reports chest pain; Denies palpitations Respiratory/Chest Respiratory/Chest: Denies cough or dyspnea Gastrointestinal Gastrointestinal: Denies nausea or vomiting Genitourinary Genitourinary ED: Denies dysuria or hematuria Musculoskeletal Musculoskeletal: Reports back pain and neck pain Integumentary Denies abscess or rash Neurologic Neurologic: Reports headache(s); Denies weakness Allergic/Immunologic Allergic/Immunologic ED: Denies mouth swelling or urticaria EXAM Physical Exam Const Vital Signs: 10/06/21 13:48 Temperature 97.7 F L Temperature Source Temporal Pulse Rate 76 Respiratory Rate 17 Blood Pressure 188/75 H Blood Pressure Mean 112 Pulse Ox 96 Oxygen Delivery Method Room Air Positive well nourished and well developed General Appearance ED: well developed and NAD HEENT HEENT Narrative: There is mild tenderness over the left periorbital area. There is edema and ecchymosis. There is no bony crepitance or step-off. tenderness Eyes Alignment: alignment normal Periorbital: periorbital findings abnormal left tenderness and ecchymosis Conjunctiva: conjunctiva abnormal left Details: subconjuctival hemorrhage Sclera: sclera normal Cornea: cornea normal Pupil: PERRL and accommodation reflex normal EOM: Negative for EOM abnormal Neck supple and no JVD Resp normal respiratory effort and clear to auscultation bilaterally Cardio regular rate and regular rhythm GI non-tender Palpation: soft Neuro oriented x3, CN's II-XII intact bilaterally, moves all extremities and no sensory deficits noted Sensorium / Orientation: alert MDM MDM MDM Narrative Medical decision making narrative: Portable 1 view chest x-ray was obtained. On my interpretation, lung jacome are clear. There is normal cardiac silhouette. Bony thorax is normal. There is no acute process noted. Radiologist also interpreted the x-ray and agrees. CT scan of the brain was obtained. There is no acute intracranial abnormality. This was interpreted by the radiologist and reviewed by myself. Patient was advised of her findings. Patient was given concussion instructions. Patient was instructed to drink plenty of fluids. Patient was instructed to follow-up with her primary care physician in 3 to 5 days. Patient understood and was agreeable with the plan. All questions were answered. Discharge Plan Triage Chief Complaint: Eye Problem ED Provider: Ruddy Logan Dx/Rx/DC Orders Clinical Impression: Concussion, Subconjunctival hemorrhage Instructions: ED Concussion, ED Subconjunctival Hemorrhage Prescriptions: No Action furosemide [Lasix] 20 mg tablet 20 mg PO DAILY PRN PRN (Reason: fluid) RF: 0 ticagrelor 90 mg tablet 90 mg PO BID RF: 0 pantoprazole 20 mg tablet,delayed release (DR/EC) 20 mg PO DAILY RF: 0 docusate sodium 100 mg Capsule 200 mg PO QHS RF: 0 hydroxyzine HCl 25 mg Tablet 25 mg PO QHS RF: 0 gabapentin 100 mg capsule 200 mg PO BID RF: 0 oxycodone-acetaminophen 7.5-325 mg tablet 1 tab PO Q6H PRN (Reason: Pain) RF: 0 baclofen 5 mg tablet 2.5 - 5 mg PO TID PRN (Reason: Spasms) RF: 0 prednisone 20 mg tablet See Taper mg PO DAILY Qty: 15 RF: 0 duloxetine 30 mg Capsule,Delayed Release(Dr/Ec) 30 mg PO DAILY Qty: 30 RF: 0 cefdinir 300 mg capsule 300 mg PO BID Qty: 10 RF: 0 oxycodone-acetaminophen [oxycodone-acetaminophen] 1 TABLET tablet 1 tab PO Q6H PRN PRN (Reason: pain) 5 Days Qty: 20 RF: 0 ondansetron [ondansetron] 4 MG tablet 4 mg PO Q8H PRN PRN (Reason: Nausea) Qty: 10 RF: 0 isosorbide mononitrate 60 mg tablet extended release 24 hr 60 mg PO BID Qty: 180 RF: 3 losartan 100 mg tablet 100 mg PO DAILY Qty: 90 RF: 3 metoprolol succinate 25 mg tablet extended release 24 hr 25 mg PO DAILY Qty: 90 RF: 3 nitroglycerin 0.4 mg tablet, sublingual 0.4 mg SL PRN PRN (Reason: Cardiac/Chest Pain) Qty: 25 RF: 4 ranolazine 1,000 mg tablet extended release 12 hr 1,000 mg PO BID Qty: 180 RF: 3 Primary Care Provider: Stacie Rivers NP Referrals: Stacie Rivers NP, [facility] [Primary Care Provider] - 3-5 Days Disposition Disposition: Home, Self Care
--- NOTE | 2021-10-06 16:10 | RAD_ITS ---
INDICATION: Dyspnea EXAMINATION/TECHNIQUE: X-RAY - XR Chest 2 Views COMPARISON: 07/26/2020. FINDINGS: The lungs are clear. Sternal cerclage wires and vascular clips are present from a prior sternotomy and coronary artery bypass graft procedure (CABG). Tortuous and calcified thoracic aorta. The heart is borderline enlarged. No pleural effusion or pneumothorax. No acute osseous abnormalities. RAD/Chest PA and Lateral IMPRESSION: No acute radiographic abnormalities. Electronically Signed: Ran Kamara MD at 16:29 EDT ,
[2021-10-06 17:16] VITALS: BP 167/78; PULSE 78; RESP 16; O2SAT 98
== END 2021-10-06 17:17 | disposition home or self-care (01) ==
PROVIDERS: Emergency Provider Emergency Medicine; PCP Nurse Practitioner Adult Health; Visit Provider Emergency Medicine
DX: S06.0X0A Concussion without loss of consciousness, initial encounter (principal); Z87.891 Personal history of nicotine dependence; H11.32 Conjunctival hemorrhage, left eye; I10 Essential (primary) hypertension; I25.10 Atherosclerotic heart disease of native coronary artery without angina pectoris; E78.5 Hyperlipidemia, unspecified; M54.2 Cervicalgia; M54.9 Dorsalgia, unspecified; M25.511 Pain in right shoulder; M79.7 Fibromyalgia; G89.29 Other chronic pain; K21.9 Gastro-esophageal reflux disease without esophagitis; I25.2 Old myocardial infarction; Z87.19 Personal history of other diseases of the digestive system; E66.9 Obesity, unspecified; G62.9 Polyneuropathy, unspecified; Z79.899 Other long term (current) drug therapy; Z95.1 Presence of aortocoronary bypass graft; W19.XXXA Unspecified fall, initial encounter
CPT/HCPCS: 70450; 71046; 99283

== ENCOUNTER 2021-12-12 15:08 | Observation (INO) | payer MEDICARE, SELFPAY ==
[2021-12-12 15:09] VITALS: BP 154/59; PULSE 60; RESP 20; TEMP 36.9; O2SAT 95; BMI 33.3
--- NOTE | 2021-12-12 15:22 | CT_ITS ---
STUDY: CT BRAIN WITHOUT CONTRAST REASON FOR EXAM: Female, 76 years old. headache, syncope, seizure RADIATION DOSAGE (If Supplied By Facility): CTDIvol = ( 44.99 ) mGy, DLP = ( 762.36 ) mGycm TECHNIQUE: Transaxial CT imaging of the brain was performed without administration of intravenous contrast material. Individualized dose optimization techniques were used for this CT. COMPARISON: 10/06/2021. FINDINGS: Normal soft tissue structures. Prior left frontotemporal craniotomy. Normal size ventricles and extra-axial spaces for the patient''s age. There are areas of decreased attenuation within the white matter tracts of the supratentorial brain, consistent with microvascular disease changes. There is no intracranial hemorrhage. There are no findings of an acute ischemic infarction. Mild mucosal thickening in the right maxillary sinus. CT/Brain/Head without Contrast IMPRESSION: No acute findings. Microvascular ischemic changes. Electronically Signed: Pushpa Snowden MD at 16:46 EDT Reading Location ID and State: [id number] / Tel , Service support ,
--- NOTE | 2021-12-12 15:23 | EKG12_ITS ---
Test Reason : syncope Blood Pressure : / mmHG Vent. Rate : 058 BPM Atrial Rate : 058 BPM P-R Int : 162 ms QRS Dur : 082 ms QT Int : 440 ms P-R-T Axes : 019 031 056 degrees QTc Int : 431 ms Sinus bradycardia Otherwise normal ECG Confirmed by CHAS SEXTON, SHAD ([id number]), publications editor DEVAUGHN PEREZ ([id number]) on 12/16/2021 11:26:04 AM Referred By: aV Confirmed By:YI DOHERTY MD
--- NOTE | 2021-12-12 15:25 | EDS_ITS ---
HPI History of Present Illness Chief Complaint: Syncope Narrative Narrative: Patient presents via EMS with possible syncopal episode. She states that within the last hour, she had an episode where she had not been feeling well all day. She felt generally weak. She went to lay down in a recliner because she had arm pain that went throughout her body. She states she could hear her son talking to her but could not respond. She is unsure if she had a true syncopal episode, but it was reported that she lost control of her bladder. She is starting to feel improved. She states she has had forehead pressure all day. She denies any dysuria or hematuria. No shortness of breath, no fevers or chills, no cough. No nausea or vomiting. Past medical history does include coronary artery disease. She states she took a nitroglycerin because she had not been feeling well and because of the arm pain. [facility] Medical History (Updated 12/12/21 @ 19:[address] Telma Hamlin MD) Arthritis Atherosclerosis of coronary artery of [place] heart without angina pectoris Brain tumor Chronic low back pain Chronic narcotic use Depression Essential (primary) hypertension Fibromyalgia Former smoker GERD (gastroesophageal reflux disease) History of non-ST elevation myocardial infarction (NSTEMI) (05/01/19) HLD (hyperlipidemia) Hypertension Leg cramps Myocardial infarct Neuropathy Obesity (BMI 30.0-34.9) Osteoarthritis Plantar fasciitis Stomach ulcer Tobacco dependence in remission Unstable angina Home Medications furosemide 20 mg tablet (Lasix) 20 mg PO DAILY PRN PRN fluid 01/30/21 [History Last Taken Unknown] isosorbide mononitrate 60 mg tablet,extended release 24 hr 60 mg PO BID #180 tabs 02/01/21 [Rx Last Taken 12/12/21] losartan 100 mg tablet 100 mg PO DAILY BP #90 tabs 02/01/21 [Rx Last Taken 12/12/21] metoprolol succinate 25 mg tablet,extended release 24 hr 25 mg PO DAILY #90 tabs 02/01/21 [Rx Last Taken 12/12/21] nitroglycerin 0.4 mg sublingual tablet 0.4 mg sublingual PRN PRN Cardiac/Chest Pain ##25 02/01/21 [Rx Last Taken 12/12/21] ranolazine 1,000 mg tablet,extended release,12 hr 1,000 mg PO BID #180 tabs 02/01/21 [Rx Last Taken 12/12/21] baclofen 5 mg tablet 2.5 - 5 mg PO TID PRN Spasms 09/12/21 [History Last Taken 1 Week Ago ~09/05/21] docusate sodium 100 mg capsule 200 mg PO QHS 09/12/21 [History Last Taken 09/11/21] gabapentin 100 mg capsule 200 mg PO BID nerve pain 09/12/21 [History Last Taken 12/12/21] hydroxyzine HCl 25 mg tablet 25 mg PO PRN PRN Itching 09/12/21 [History Last Taken Unknown] oxycodone-acetaminophen 7.5 mg-325 mg tablet 1 tab PO Q6H PRN Pain 09/12/21 [History Last Taken 12/12/21] pantoprazole 20 mg tablet,delayed release 20 mg PO DAILY 09/12/21 [History Last Taken 12/12/21] ondansetron 4 mg disintegrating tablet 4 mg PO Q8H PRN PRN Nausea #10 tabs 10/02/21 [Rx Last Taken Unknown] ticagrelor 90 mg tablet 90 mg PO BID blood thinner #180 tabs 12/09/21 [Rx Last Taken 12/12/21] citalopram 20 mg tablet 20 mg PO QHS 12/12/21 [History Last Taken 12/11/21] Allergy/AdvReac Type Severity Reaction Status Date / Time isometheptene [From Midrin] Allergy shaking Verified 10/06/21 13:48 Sulfa (Sulfonamide Allergy throat Verified 10/06/21 13:48 Antibiotics) Swelling ezetimibe [From Zetia] AdvReac Severe Pain in Verified 10/06/21 13:48 joints Usgufgu-VOR-ZlW Reductase AdvReac Severe myalgias Verified 10/06/21 13:48 Inhibitor [Wktfzck-Wxu-Kcw Reductase Inhibitor] codeine AdvReac Nausea/Vom/ Verified 10/06/21 13:48 Diarrhea dichloralphenazone AdvReac shaking Verified 10/06/21 13:48 [From Midrin] fish oil AdvReac Other Verified 10/06/21 13:48 ibuprofen AdvReac stomachache Verified 10/06/21 13:48 s topiramate [From Topamax] AdvReac I felt Verified 10/06/21 13:48 crazy Family History Grandmother Hypertension Father CVA (cerebral vascular accident) Heart disease Mother Hypertension Cancer Brother Cancer Sister Hypertension Surgical History (Updated 12/12/21 @ 18:03 by Corry Haywood) H/O coronary artery bypass surgery (2006) H/O laminectomy History of appendectomy History of bladder surgery History of cholecystectomy History of coronary artery stent placement (05/02/19) History of craniotomy History of fusion of cervical spine History of hysterectomy History of laparoscopic cholecystectomy History of left heart catheterization (08/02/20) Social History household members: spouse Smoking Status: Former smoker how long ago did patient quit smoking: Quit 15 years prior, prior 1-1.5 ppd since teen. alcohol intake: never substance use type: does not use ROS ROS ED ROS Narrative Constitutional: No fever, no chills. HEENT: No sore throat. No neck pain. No loss of vision. No rhinorrhea. Cardiovascular: No chest pain. No palpitations. No pedal edema. Respiratory: No cough, no shortness of breath. Abdominal: No abdominal pain. No nausea. No vomiting. Genitourinary: No dysuria. No hematuria. Musculoskeletal: No myalgias. No arthralgias. Arm pain that went throughout body and to other arm-resolved Neurologic: Positive for head pressure/headaches. No dizziness. No lightheadedness. Generalized weakness. Skin: No rash. No change in color. Psychiatric: No depression. No anxiety. EXAM Physical Exam Narrative Exam Narrative: Afebrile. Vital signs noted. HEENT: Normocephalic. Atraumatic. PERRL, EOMI. Neck soft and supple. No point tenderness or step off. Cardiovascular: Regular rate and rhythm. No murmurs, rubs, or gallops appreciated. Respiratory: No tachypnea. Lungs clear to auscultation bilaterally. Gastrointestinal: Abdomen soft, nontender, with normoactive bowel sounds. No rebound or guarding. Neurological: Awake. Alert. Nonfocal, nonlateralizing. Skin: No rash. Normal color. No pallor. Musculoskeletal: No pedal edema. Full range of motion extremities. Const Vital Signs: 12/12/21 15:09 12/12/21 15:16 12/12/21 17:09 Temperature 98.5 F Temperature Source Temporal Pulse Rate 60 59 L Pulse Rate [Lying] Pulse Rate [Sitting (for 1 minute prior to obtaining)] Pulse Rate [Standing (for 1 minute prior to obtaining)] Respiratory Rate 20 H 14 Respiratory Effort Normal Non-Labored Respiratory Pattern Normal Blood Pressure 154/59 H 137/52 H Blood Pressure [Lying] Blood Pressure [Sitting (for 1 minute prior to obtaining)] Blood Pressure [Standing (for 1 minute prior to obtaining)] Blood Pressure Mean 90 80 Blood Pressure Mean [Lying] Blood Pressure Mean [Sitting (for 1 minute prior to obtaining)] Blood Pressure Mean [Standing (for 1 minute prior to obtaining)] Pulse Ox 95 96 Oxygen Delivery Method Room Air Room Air 12/12/21 18:11 Temperature Temperature Source Pulse Rate Pulse Rate [Lying] 61 Pulse Rate [Sitting (for 1 minute prior to obtaining)] 58 L Pulse Rate [Standing (for 1 minute prior to obtaining)] 62 Respiratory Rate Respiratory Effort Respiratory Pattern Blood Pressure Blood Pressure [Lying] 156/65 H Blood Pressure [Sitting (for 1 minute prior to obtaining)] 159/70 H Blood Pressure [Standing (for 1 minute prior to obtaining)] 169/71 H Blood Pressure Mean Blood Pressure Mean [Lying] 95 Blood Pressure Mean [Sitting (for 1 minute prior to obtaining)] 99 Blood Pressure Mean [Standing (for 1 minute prior to obtaining)] 103 Pulse Ox Oxygen Delivery Method MDM MDM MDM Narrative Medical decision making narrative: Comprehensive work-up was pursued. Prehospital EKG demonstrates normal sinus rhythm without acute ST changes, no STEMI. EKG from the emergency department interpreted by myself demonstrates sinus bradycardia at 58 bpm without ectopy or acute ST changes, no STEMI. Her CBC is grossly unremarkable with a normal white count of 9.1, hemoglobin stable 11.7, hematocrit 36.2. Platelet count normal at 202. Electrolyte panel shows chloride slightly elevated at 108 with a normal sodium and normal potassium. BUN slightly elevated at 20 with creatinine of 1.2, it has been elevated at 1.1 in the past. Glucose 135 with a low anion gap of 3. Initial high-sensitivity troponin 7. Chest x-ray interpreted by myself s hows no acute process, no pneumothorax or pneumonia. CT of the brain was obtained because of her headache and questionable seizure. She states she has a history of a brain tumor and has not followed up with neurology for over [address] shows no acute process, no hemorrhage or mass. Her family is now at the bedside. They are unsure if the patient had any seizure activity, but were concerned because the patient did lose control of her bladder and urinated on herself. Her urinalysis is currently pending. However, given her age, and her possible syncope versus seizure, I do feel that she requires observation. Patient was discussed with the hospitalist. In discussion with Dr. Da Silva, he would like orthostatics performed. These were negative and there was no increase in her pulse or significant drop in her blood pressure. Her urinalysis shows no evidence of infection, negative ketones. Patient then discussed with Dr. Hamlin. She is seen the patient in the ED and discussed with the family the option of observation on the PCU given that there is no in-house neurologist here and there may be concern for seizure activity based on the patient and her family's description of what had transpired today. Disposition is observation on PCU. Patient is in stable condition. Lab Data Attestation: I reviewed the patient's lab results. Labs: Laboratory Results - last 24 hr 12/12/21 12/12/21 12/12/21 15:45 15:45 17:26 WBC 9.1 RBC 3.67 L Hgb 11.7 L Hct 36.2 L MCV 98.6 MCH 31.9 MCHC 32.3 RDW Std Deviation 51.8 H RDW Coeff of Fredo 14.3 Plt Count 202 MPV 9.7 Immature Gran % (Auto) 0.700 Neut % (Auto) 71.2 H Lymph % (Auto) 16.3 L [place] % (Auto) 10.0 Eos % (Auto) 1.7 Baso % (Auto) 0.1 Absolute Neuts (auto) 6.5 Absolute Lymphs (auto) 1.48 Nucleated RBC % 0 Sodium 138 Potassium 4.4 Chloride 108 H Carbon Dioxide 27.0 Anion Gap 3 L BUN 20 H Creatinine 1.20 H Estim Creat Clear Calc 34.98 Est GFR (MDRD) Af Amer 56 L Est GFR (MDRD) Non-Af 46 L BUN/Creatinine Ratio 16.7 Glucose 135 H Calcium 8.2 L Magnesium Total Bilirubin 0.50 AST 12 L ALT 17 Alkaline Phosphatase 69 Troponin I High Sens 7 Total Protein 5.8 L Albumin 2.9 L Globulin 2.9 Albumin/Globulin Ratio 1.0 Urine Color Yellow Urine Clarity Clear Urine pH 6.5 Ur Specific Dierks 1.010 Urine Protein Negative Urine Glucose (UA) Normal Urine Ketones Negative Urine Occult Blood Negative Urine Nitrite Negative Urine Bilirubin Negative Urine Urobilinogen Normal Ur Leukocyte Esterase Negative Urine RBC 0 SEEN Urine WBC 0 SEEN Ur Squamous Epith Cells 0 SEEN Urine Bacteria 0 SEEN Urine Mucus 0 SEEN Urine Opiates Screen Urine Methadone Screen Ur Barbiturates Screen Ur Phencyclidine Scrn Ur Amphetamines Screen MDMA (Ecstasy) Screen U Benzodiazepines Scrn Urine Cocaine Screen U Cannabinoids Screen Ur Drug Screen Comment 12/12/21 12/12/21 12/12/21 17:26 18:10 18:10 WBC RBC Hgb Hct MCV MCH MCHC RDW Std Deviation RDW Coeff of Fredo Plt Count MPV Immature Gran % (Auto) Neut % (Auto) Lymph % (Auto) [place]aver % (Auto) Eos % (Auto) Baso % (Auto) Absolute Neuts (auto) Absolute Lymphs (auto) Nucleated RBC % Sodium Potassium Chloride Carbon Dioxide Anion Gap BUN Creatinine Estim Creat Clear Calc Est GFR (MDRD) Af Amer Est GFR (MDRD) Non-Af BUN/Creatinine Ratio Glucose Calcium Magnesium 2.3 Total Bilirubin AST ALT Alkaline Phosphatase Troponin I High Sens 7 Total Protein Albumin Globulin Albumin/Globulin Ratio Urine Color Urine Clarity Urine pH Ur Specific Dierks Urine Protein Urine Glucose (UA) Urine Ketones Urine Occult Blood Urine Nitrite Urine Bilirubin Urine Urobilinogen Ur Leukocyte Esterase Urine RBC Urine WBC Ur Squamous Epith Cells Urine Bacteria Urine Mucus Urine Opiates Screen NEGATIVE Urine Methadone Screen NEGATIVE Ur Barbiturates Screen NEGATIVE Ur Phencyclidine Scrn NEGATIVE Ur Amphetamines Screen NEGATIVE MDMA (Ecstasy) Screen NEGATIVE U Benzodiazepines Scrn NEGATIVE Urine Cocaine Screen NEGATIVE U Cannabinoids Screen NEGATIVE Ur Drug Screen Comment Radiography Diagnostic Testing: Clinical Impression(s) from Imaging Studies Brain CT 12/12/21 15:22 IMPRESSION: No acute findings. Microvascular ischemic changes. Electronically Signed: Pushpa Snowden MD at 16:46 EDT Reading Location ID and State: [id number] / Tel , Service support , Chest X-Ray 12/12/21 16:00 IMPRESSION: Normal x-ray examination of the chest. Electronically Signed: Pushpa Snowden MD at 16:51 EDT Reading Location ID and State: [id number] / Tel , Service support , Discharge Plan Dx/Rx/DC Orders Clinical Impression: Syncope and collapse, Loss of bladder control, Arm pain, Generalized weakness Disposition Disposition: Acute Care [facility]
[2021-12-12 15:57] LABS: Absolute Lymphocyte Count 1.48 X10^3/uL (0.83-4.51); Absolute Neutrophil Count 6.5 X10^3/uL (2.0-7.7); Basophil# 0.01 X10^3/uL; Basophil% 0.1 % (0-1); Eosinophil# 0.15 X10^3/uL; Eosinophils% 1.7 % (0-5); Hematocrit 36.2 % (37-47); Hemoglobin 11.7 g/dL (12.0-15.0); Lymphocyte # 1.48 X10^3/ul (0.83-4.51); Lymphocyte % 16.3 % (19-41); Mean Corp Hgb Conc 32.3 g/dL (32-36); Mean Corpuscular Hgb 31.9 pg (27.0-32.0); Mean Corpuscular Volume 98.6 fL (81-99); Mean Platelet Vol. 9.7 fl (6.2-12.0); Monocyte# 0.91 X10^3/uL; NRBC Flagged by Analyzer 0 % (0-5); Neutrophil # 6.46 X10^3/uL (2.7-7.7); Neutrophil % 71.2 % (47-70); Platelet Count 202 K/mm3 (150-450); RBC Distribution Width CV 14.3 % (11.6-14.6); RBC Distribution Width SD 51.8 fl (35.1-43.9); Red Blood Count 3.67 M/mm3 (4.2-5.4); White Blood Count 9.1 K/mm3 (4.4-11.0)
--- NOTE | 2021-12-12 16:00 | RAD_ITS ---
STUDY: X-RAY CHEST REASON FOR EXAM: Female, 76 years old. CAD TECHNIQUE: Single AP portable view of the chest. COMPARISON: 07/26/2020. FINDINGS: The lungs are clear and expanded. There is no demonstrated pleural abnormality. Normal size heart. Prior CABG. Normal mediastinum and ramakrishna. Normal visualized pulmonary arteries. Normal visualized aortic arch and descending thoracic aorta. Normal visualized thoracic spine. Normal visualized ribs, clavicles, and shoulders. There is no demonstrated abnormality of the visualized soft tissue structures of the upper abdomen. RAD/Chest 1 View (Portable) IMPRESSION: Normal x-ray examination of the chest. Electronically Signed: Pushpa Snowden MD at 16:51 EDT Reading Location ID and State: [id number] / Tel , Service support ,
[2021-12-12 16:21] LABS: AST(SGOT) 12 U/L (15-37); Alanine Aminotransfer ALT/SGPT 17 U/L (13-56); Albumin, Serum 2.9 g/dL (3.2-5.0); Alkaline Phosphatase 69 U/L (45-117); Anion Gap 3 (5-15); BUN 20 mg/dL (7-18); BUN/Creat Ratio 16.7 RATIO (10-20); Calcium,Total 8.2 mg/dL (8.5-10.1); Chloride 108 mmol/L (98-107); EST Glomerular Filtration Rate 46 mL/min (>60); Est Glom Filt Rate - Afr Amer 56 mL/min (>60); Estimated Creatinine Clearance 34.98 ml/min; Globulin 2.9 g/dL (2.2-4.2); Glucose 135 mg/dL (74-106); Potassium 4.4 mmol/L (3.5-5.1); Protein, Total 5.8 g/dL (6.4-8.2); Sodium Level 138 mmol/L (136-145); Troponin-I HS (w/2H Reflex) 7 pg/mL (3.0-54.0)
[2021-12-12 17:09] VITALS: BP 137/52; PULSE 59; RESP 14; O2SAT 96
[2021-12-12 17:34] LABS: Bacteria 0 SEEN /hpf (None Seen); Mucous, Urine 0 SEEN /hpf (<or=2+); Red Blood Cells-Urine 0 SEEN /hpf (0-5); Squamous Epithelial Cells - UA 0 SEEN /hpf (5-10); White Blood Cells 0 SEEN /hpf (0-5)
[2021-12-12 17:53] LABS: Color, Urine Yellow (Yellow); Glucose, Dipstick Normal (Normal); Ketone-Dipstick Negative (Negative); Leukocyte Esterase-Dipstick Negative /ul (Negative); Nitrite-Dipstick Negative (Negative); Occult Blood-Urine Negative /ul (Negative); Protein-Dipstick Negative (Negative); Urine Bilirubin Dipstick Negative (Negative); Urine Clarity Clear (Clear); Urine Urobilinogen Normal (Normal); Urine pH 6.5 (5.0 - 8.0)
[2021-12-12 17:55] LABS: Reflex Troponin-HS? (from REC) Y
[2021-12-12 18:11] VITALS: BP 156/65; BP 159/70; BP 169/71; PULSE 58; PULSE 61; PULSE 62
[2021-12-12 18:35] LABS: Troponin-I HS 7 pg/mL (3.0-54.0)
[2021-12-12] MEDS: 0.9% Normal Saline 1,000 ML 999 ML IV (18:48)
--- NOTE | 2021-12-12 19:11 | PCM.HP.STD ---
HPI - General General Date of Admission: 12/12/21 Date of Service: 12/12/21 Chief Complaint: Unresponsive episode, loss of bladder. HPI Narrative The patient is a 76 y/o F w/ PMHx: Anxiety and Depression, OA, CAD s/p CABG 2006 and PCI 04/2019, Hx Tobacco use, GERD w/ Hx Gastric Ulcer/GI bleed, HTN, HLD, Chronic neuropathy w/ Chronic lumbar back pain following w/ Dr. Charles, Hx Brain tumor unclear type s/p craniotomy who presents to the [facility] ED on 12/12/21 with history of onset malaise, fatigue and generally weak with some associated sensation of lightheadedness/dizziness, noted to have laid down in a recliner secondary to these symptoms and generalized pain and discomfort with onset unresponsive episode noted to have heard her son talking but could not respond with loss of bladder control with concurrent forehead pressure all day with self administration of nitroglycerin secondary to concern initially for possible underlying cardiac etiology with no recent fever, chills, dyspnea, hematuria, dysuria. From discussions she has had a prior episode of unresponsiveness, awakening up on the ground in her own urine, unwitnessed at that time. She has never been formally diagnosed with seizure disorder. She cannot recall if she was on AEDs following her craniotomy prior. Work-up in the ED included T98.5, heart rate 60, BP 154/59, respiratory rate 14-20, 95 to 96% on room air, negative orthostatic vital sign, CBC with WC 9.1, hemoglobin 7, platelet 202 without marked shift, CMP with chloride 108, BUN/creat 20/1.20, glucose 135, hepatic profile unremarkable, troponin 7 with repeat 7, chest x-ray with no acute cardiopulmonary findings, CT of the brain with no acute findings with microvascular ischemic changes, EKG with SB with rate 58 with no acute evidence of ischemia. In the ED patient administered NS bolus x 1. [facility] Medical History (Updated 12/12/21 @ 19:[address] Telma Hamlin MD) Arthritis Atherosclerosis of coronary artery of [place] heart without angina pectoris Brain tumor Chronic low back pain Chronic narcotic use Depression Essential (primary) hypertension Fibromyalgia Former smoker GERD (gastroesophageal reflux disease) History of non-ST elevation myocardial infarction (NSTEMI) (05/01/19) HLD (hyperlipidemia) Hypertension Leg cramps Myocardial infarct Neuropathy Obesity (BMI 30.0-34.9) Osteoarthritis Plantar fasciitis Stomach ulcer Tobacco dependence in remission Unstable angina Home Medications furosemide 20 mg tablet (Lasix) 20 mg PO DAILY PRN PRN fluid 01/30/21 [History Last Taken Unknown] isosorbide mononitrate 60 mg tablet,extended release 24 hr 60 mg PO BID #180 tabs 02/01/21 [Rx Last Taken 12/12/21] losartan 100 mg tablet 100 mg PO DAILY BP #90 tabs 02/01/21 [Rx Last Taken 12/12/21] metoprolol succinate 25 mg tablet,extended release 24 hr 25 mg PO DAILY #90 tabs 02/01/21 [Rx Last Taken 12/12/21] nitroglycerin 0.4 mg sublingual tablet 0.4 mg sublingual PRN PRN Cardiac/Chest Pain ##25 02/01/21 [Rx Last Taken 12/12/21] ranolazine 1,000 mg tablet,extended release,12 hr 1,000 mg PO BID #180 tabs 02/01/21 [Rx Last Taken 12/12/21] baclofen 5 mg tablet 2.5 - 5 mg PO TID PRN Spasms 09/12/21 [History Last Taken 1 Week Ago ~09/05/21] docusate sodium 100 mg capsule 200 mg PO QHS 09/12/21 [History Last Taken 09/11/21] gabapentin 100 mg capsule 200 mg PO BID nerve pain 09/12/21 [History Last Taken 12/12/21] hydroxyzine HCl 25 mg tablet 25 mg PO PRN PRN Itching 09/12/21 [History Last Taken Unknown] oxycodone-acetaminophen 7.5 mg-325 mg tablet 1 tab PO Q6H PRN Pain 09/12/21 [History Last Taken 12/12/21] pantoprazole 20 mg tablet,delayed release 20 mg PO DAILY 09/12/21 [History Last Taken 12/12/21] ondansetron 4 mg disintegrating tablet 4 mg PO Q8H PRN PRN Nausea #10 tabs 10/02/21 [Rx Last Taken Unknown] ticagrelor 90 mg tablet 90 mg PO BID blood thinner #180 tabs 12/09/21 [Rx Last Taken 12/12/21] citalopram 20 mg tablet 20 mg PO QHS 12/12/21 [History Last Taken 12/11/21] Allergy/AdvReac Type Severity Reaction Status Date / Time isometheptene [From Midrin] Allergy shaking Verified 10/06/21 13:48 Sulfa (Sulfonamide Allergy throat Verified 10/06/21 13:48 Antibiotics) Swelling ezetimibe [From Zetia] AdvReac Severe Pain in Verified 10/06/21 13:48 joints Rekakmf-VGL-GbK Reductase AdvReac Severe myalgias Verified 10/06/21 13:48 Inhibitor [Gyknkri-Axn-Hgt Reductase Inhibitor] codeine AdvReac Nausea/Vom/ Verified 10/06/21 13:48 Diarrhea dichloralphenazone AdvReac shaking Verified 10/06/21 13:48 [From Midrin] fish oil AdvReac Other Verified 10/06/21 13:48 ibuprofen AdvReac stomachache Verified 10/06/21 13:48 s topiramate [From Topamax] AdvReac I felt Verified 10/06/21 13:48 crazy Family History Grandmother Hypertension Father CVA (cerebral vascular accident) Heart disease Mother Hypertension Cancer Brother Cancer Sister Hypertension Surgical History (Updated 12/12/21 @ 18:03 by Corry Haywood) H/O coronary artery bypass surgery (2006) H/O laminectomy History of appendectomy History of bladder surgery History of cholecystectomy History of coronary artery stent placement (05/02/19) History of craniotomy History of fusion of cervical spine History of hysterectomy History of laparoscopic cholecystectomy History of left heart catheterization (08/02/20) Social History household members: spouse Smoking Status: Former smoker how long ago did patient quit smoking: Quit 15 years prior, prior 1-1.5 ppd since teen. alcohol intake: never substance use type: does not use ROS ROS Narrative Admission Review of Systems: CONSTITUTIONAL: No weight loss, fever, chills, + weakness or fatigue. HEENT: Eyes: No visual loss, blurred vision, double vision or yellow sclerae. Ears, Nose, Throat: No hearing loss, sneezing, congestion, runny nose or sore throat. SKIN: No rash or itching, lesions, wounds. CARDIOVASCULAR: No chest pain, chest pressure or chest discomfort, palpitations, edema, orthopnea, syncopal events. RESPIRATORY: No shortness of breath, cough or sputum, wheezing, hemoptysis. GASTROINTESTINAL: No anorexia, nausea, vomiting or diarrhea, abdominal pain, melena, BRBPR. GENITOURINARY: No dysuria, frequency, urgency or retention. NEUROLOGICAL: + Unresponsive episode concerning for seizure, headache, LH/dizziness, chronic neuropathy, No paralysis, ataxia, focal weakness. MUSCULOSKELETAL: + muscle, back pain, joint pain or stiffness. HEMATOLOGIC: + anemia, bleeding or bruising. LYMPHATICS: No enlarged nodes. No history of splenectomy. PSYCHIATRIC: + history of depression or anxiety. ENDOCRINOLOGIC: No reports of sweating, cold or heat intolerance. No polyuria or polydipsia. ALLERGIES: + history of hives, rhinitis. Vital Signs Vital Signs Vital Signs: 12/12/21 15:09 12/12/21 15:16 12/12/21 17:09 Temperature 98.5 F Temperature Source Temporal Pulse Rate 60 59 L Pulse Rate [Lying] Pulse Rate [Sitting (for 1 minute prior to obtaining)] Pulse Rate [Standing (for 1 minute prior to obtaining)] Respiratory Rate 20 H 14 Respiratory Effort Normal Non-Labored Respiratory Pattern Normal Blood Pressure 154/59 H 137/52 H Blood Pressure [Lying] Blood Pressure [Sitting (for 1 minute prior to obtaining)] Blood Pressure [Standing (for 1 minute prior to obtaining)] Blood Pressure Mean 90 80 Blood Pressure Mean [Lying] Blood Pressure Mean [Sitting (for 1 minute prior to obtaining)] Blood Pressure Mean [Standing (for 1 minute prior to obtaining)] Pulse Ox 95 96 Oxygen Delivery Method Room Air Room Air 12/12/21 18:11 Temperature Temperature Source Pulse Rate Pulse Rate [Lying] 61 Pulse Rate [Sitting (for 1 minute prior to obtaining)] 58 L Pulse Rate [Standing (for 1 minute prior to obtaining)] 62 Respiratory Rate Respiratory Effort Respiratory Pattern Blood Pressure Blood Pressure [Lying] 156/65 H Blood Pressure [Sitting (for 1 minute prior to obtaining)] 159/70 H Blood Pressure [Standing (for 1 minute prior to obtaining)] 169/71 H Blood Pressure Mean Blood Pressure Mean [Lying] 95 Blood Pressure Mean [Sitting (for 1 minute prior to obtaining)] 99 Blood Pressure Mean [Standing (for 1 minute prior to obtaining)] 103 Pulse Ox Oxygen Delivery Method Weight Weight: 195 lb 5.273 oz Body Mass Index (BMI) 33.3 Physical Exam Narrative Physical Examination: General: Awake, alert, oriented x 3, cooperative, laying in the ED bed, fatigued, notes she has some back discomfort which is chronic but the bed is making it worse. Skin: Normal color, normal turgor, no icterus, no cyanosis. HEENT: AT/NC, EOMI, PERRLA, mildly dry MM, no carotid bruits or JVD noted. Lungs: Diminished, greater bases, poor effort, no rales, ronchi or wheezing. Heart: Mildly bradycardic with regular rhythm; no gallop, rub audible. Abdomen: Soft, obese, NTTP, ND, normal BS, no HSM. Extremities: No cyanosis, clubbing, or edema. Neurological: Patient awake, alert, oriented as noted, cognitive function appears improved, suspect baseline intact; pupils equally reactive to light and accommodation, cranial nerves II-XII grossly normal, moving all 4 extremities although limited given chronic back pain, no focal deficits, strength moderately globally decreased. Psychiatric: Affect appears fatigued otherwise normal, no acute evidence of depressive or anxiety feelings but underlying medical history. Results Lab / Micro Data Result Diagrams: 12/12/21 15:45 12/12/21 15:45 Labs: Laboratory Results - last 24 hr 12/12/21 15:45: WBC 9.1, RBC 3.67 L, Hgb 11.7 L, Hct 36.2 L, MCV 98.6, MCH 31.9, MCHC 32.3, RDW Std Deviation 51.8 H, RDW Coeff of Fredo 14.3, Plt Count 202, MPV 9.7, Immature Gran % (Auto) 0.700, Neut % (Auto) 71.2 H, Lymph % (Auto) 16.3 L, [place] % (Auto) 10.0, Eos % (Auto) 1.7, Baso % (Auto) 0.1, Absolute Neuts (auto) 6.5, Absolute Lymphs (auto) 1.48, Nucleated RBC % 0 12/12/21 15:45: Sodium 138, Potassium 4.4, Chloride 108 H, Carbon Dioxide 27.0, Anion Gap 3 L, BUN 20 H, Creatinine 1.20 H, Estim Creat Clear Calc 34.98, Est GFR (MDRD) Af Amer 56 L, Est GFR (MDRD) Non-Af 46 L, BUN/Creatinine Ratio 16.7, Glucose 135 H, Calcium 8.2 L, Total Bilirubin 0.50, AST 12 L, ALT 17, Alkaline Phosphatase 69, Troponin I High Sens 7, Total Protein 5.8 L, Albumin 2.9 L, Globulin 2.9, Albumin/Globulin Ratio 1.0 12/12/21 17:26: Urine Color Yellow, Urine Clarity Clear, Urine pH 6.5, Ur Specific [place] 1.010, Urine Protein Negative, Urine Glucose (UA) Normal, Urine Ketones Negative, Urine Occult Blood Negative, Urine Nitrite Negative, Urine Bilirubin Negative, Urine Urobilinogen Normal, Ur Leukocyte Esterase Negative, Urine RBC 0 SEEN, Urine WBC 0 SEEN, Ur Squamous Epith Cells 0 SEEN, Urine Bacteria 0 SEEN, Urine Mucus 0 SEEN 12/12/21 18:10: Troponin I High Sens [address] 12/12/21 15:22 IMPRESSION: No acute findings. Microvascular ischemic changes. Electronically Signed: Pushpa Snowden MD at 16:46 EDT Reading Location ID and State: [place] MD Tel , Service support , Chest X-Ray 12/12/21 16:00 IMPRESSION: Normal x-ray examination of the chest. Electronically Signed: Pushpa Snowden MD at 16:51 EDT Reading Location ID and State: [place] MD Tel , Service support , Assessment & Plan Assessment/Plan (1) Unresponsive episode: PLAN: Plan The patient is a 76 y/o F w/ PMHx: Anxiety and Depression, OA, CAD s/p CABG 2006 and PCI 04/2019, Hx Tobacco use, GERD w/ Hx Gastric Ulcer/GI bleed, HTN, HLD, Chronic neuropathy w/ Chronic lumbar back pain following w/ Dr. Charles, Hx Brain tumor unclear type s/p craniotomy who presents to the [facility] ED on 12/12/21 with history of onset malaise, fatigue and generally weak with some associated sensation of lightheadedness/dizziness, noted to have laid down in a recliner secondary to these symptoms and generalized pain and discomfort with onset unresponsive episode noted to have heard her son talking but could not respond with loss of bladder control with concurrent forehead pressure all day with self administration of nitroglycerin in case cardiac etiology. #1. Unresponsive episode with loss of bladder suspicious for potential new-onset seizure complicated by prior history of brain tumor: From description concerning for seizure activity with increased mentation and improvement following however patient has some vague mild symptoms ongoing. Vital signs as well as lab work-up in the ED unremarkable, CT head without acute intracranial pathology. Will admit to PCU, will obtain TSH, mag, UTox, maintain on telemetry in PCU on seizure precautions, obtain EEG, obtain brain MRI with and without contrast given history as noted. Will place on Keppra IV pending Neurology consultation once MRI brain and EEG resulted given history. To be cautious will also cycle cardiac enzymes. PRN ativan IV for seizure activity. #2. Mild renal insufficiency: Admission BUN/creatinine 20/1.20, baseline creatinine 0.8 to primarily 0.9, repeat in AM. #3. Chronic normocytic anemia: Admission hemoglobin 11.7, baseline appears primarily 10-11, repeat in a.m. #4. CAD: Status post CABG and PCI, will continue aspirin, Brilinta, metoprolol, losartan regimen. #5. Hypertension: Continue home regimen including metoprolol, losartan, isosorbide with hold parameters as needed, PRN hydralazine. #6. Hyperlipidemia: Statin allergy noted, encourage continued outpatient follow-up with cardiology. #7. GERD with history of prior gastric ulcer/GI bleed: Will maintain on PPI. #8. History of brain tumor: Unclear specific type, status post craniotomy, considered in remission per discussion. #9. Obesity: Weight loss and lifestyle changes encouraged. #10. Anxiety and depression: We will continue patient home citalopram regimen. #11. Former tobacco use: Encourage continued tobacco cessation. #12. Hx infrarenal abdominal aortic aneurysm: Noted during a prior admission, at that time CT abdomen and pelvis with noted 3.4 cm infrarenal aneurysm, encourage continued outpatient evaluation and follow-up. #13. Chronic back and: Patient following with pain management, will continue patient home oxycodone, baclofen regimen to avoid any withdrawal however may need to hold if any sedation concerns. #14. DVT prophylaxis: SCDs, Lovenox. #15. CODE status: Full Code. No formal HCPOA/LW in place. Charges/Coding Visit Charges OBSV E&M: 30935 Initial observation care L3
[2021-12-12 19:45] LABS: Magnesium 2.3 mg/dL (1.6-2.6)
[2021-12-12 19:57] LABS: Amphetamine Urine VISTA NEGATIVE (<1000 ng/mL); Barbiturate Urine VISTA NEGATIVE (< 200 ng/mL); Benzodiazepine Urine VISTA NEGATIVE (< 200 ng/mL); Cocaine Urine VISTA NEGATIVE (< 300 ng/mL); Ecstacy Urine VISTA NEGATIVE (< 500 ng/mL); Methadone Urine VISTA NEGATIVE (< 300 ng/mL); PCP Urine VISTA NEGATIVE (< 25 ng/mL); THC Urine VISTA NEGATIVE (< 50 ng/mL); Vista UDS pH Range 6
[2021-12-12 20:08] VITALS: BP 129/75; PULSE 55; RESP 16; TEMP 35.7; O2SAT 95
[2021-12-12 20:10] VITALS: BMI 29.9
[2021-12-12 20:36] VITALS: PULSE 61
[2021-12-12] MEDS: 0.9% Normal Saline 1,000 ML 100 ML IV (21:22)
[2021-12-12] MEDS: Isosorbide Mononitrate 60 MG Tablet PO (22:13)
[2021-12-12] MEDS: Citalopram 20 MG Tablet PO (22:13)
[2021-12-12] MEDS: TICAGRELOR 90 MG TABLET PO (22:13)
[2021-12-12] MEDS: Gabapentin 100 MG Capsule 200 MG PO (22:22)
[2021-12-12] MEDS: Ranolazine 500 MG Tablet 1000 MG PO (22:22)
[2021-12-12] MEDS: Acetaminophen 325 MG Tablet 650 MG PO (22:32)
[2021-12-12] MEDS: oxyCODONE 5 MG Tablet 7.5 MG PO (22:32)
[2021-12-12 22:45] VITALS: BP 150/96; PULSE 60; RESP 18; TEMP 36; O2SAT 100
[2021-12-12 23:01] LABS: Troponin-I HS 6 pg/mL (3.0-54.0)
[2021-12-13] VITALS (10 sets, daily range): BP systolic 116–150; BP diastolic 57–85; PULSE 50–78; RESP 16–18; TEMP 36–37.2; O2SAT 95–98
[2021-12-13 04:30] LABS: Absolute Lymphocyte Count 2.41 X10^3/uL (0.83-4.51); Absolute Neutrophil Count 4.5 X10^3/uL (2.0-7.7); Basophil# 0.02 X10^3/uL; Basophil% 0.3 % (0-1); Eosinophil# 0.12 X10^3/uL; Eosinophils% 1.5 % (0-5); Hematocrit 34.6 % (37-47); Lymphocyte # 2.41 X10^3/ul (0.83-4.51); Lymphocyte % 30.3 % (19-41); Mean Corp Hgb Conc 31.8 g/dL (32-36); Mean Corpuscular Hgb 31.9 pg (27.0-32.0); Mean Corpuscular Volume 100.3 fL (81-99); Mean Platelet Vol. 9.9 fl (6.2-12.0); Monocyte% 11.3 % (0-10); NRBC Flagged by Analyzer 0 % (0-5); Neutrophil # 4.46 X10^3/uL (2.7-7.7); Neutrophil % 56.1 % (47-70); Platelet Count 199 K/mm3 (150-450); RBC Distribution Width CV 14.2 % (11.6-14.6); RBC Distribution Width SD 52.5 fl (35.1-43.9); Red Blood Count 3.45 M/mm3 (4.2-5.4)
[2021-12-13] MEDS: oxyCODONE 5 MG Tablet 7.5 MG PO ×3 (04:32→23:12)
[2021-12-13] MEDS: Acetaminophen 325 MG Tablet 650 MG PO ×2 (04:33→13:21)
[2021-12-13] MEDS: 0.9% Normal Saline 1,000 ML 100 ML IV ×2 (04:34→15:59)
[2021-12-13 05:20] LABS: AST(SGOT) 11 U/L (15-37); Alanine Aminotransfer ALT/SGPT 15 U/L (13-56); Albumin, Serum 2.6 g/dL (3.2-5.0); Alkaline Phosphatase 60 U/L (45-117); Anion Gap 2 (5-15); BUN 17 mg/dL (7-18); BUN/Creat Ratio 17.8 RATIO (10-20); Chloride 112 mmol/L (98-107); Creatinine, Serum 0.96 mg/dL (0.55-1.02); EST Glomerular Filtration Rate 60 mL/min (>60); Est Glom Filt Rate - Afr Amer 73 mL/min (>60); Estimated Creatinine Clearance 43.72 ml/min; Globulin 2.7 g/dL (2.2-4.2); Glucose 93 mg/dL (74-106); Potassium 4.3 mmol/L (3.5-5.1); Protein, Total 5.3 g/dL (6.4-8.2); Sodium Level 141 mmol/L (136-145); Thyroid Stim Hormone (TSH) 2.36 uIU/mL (0.358-3.74)
--- NOTE | 2021-12-13 05:55 | MRI_ITS ---
EXAM: MR HEAD WITHOUT AND WITH INTRAVENOUS CONTRAST CLINICAL INDICATION: Seizure. History of meningioma. TECHNIQUE: Multiplanar and multisequence MR images of the brain were obtained without and with intravenous contrast. This report was created using [employer] report [employer] technology. CONTRAST: 15ml Dotarem via IV COMPARISON: CT head without contrast 12/12/2021. FINDINGS: BRAIN AND EXTRA-AXIAL SPACES: T2 FLAIR hyperintensity foci in the white matter of both cerebral hemispheres are chronic white matter ischemic changes. No abnormal enhancing lesions intraaxially and extra-axially. Normal ventricles and cisterns. No intra- or extra-axial hemorrhage. No intracranial mass or mass effect. Posterior fossa structures are unremarkable. No hydrocephalus. SELLA: Unremarkable. Normal sella turcica, pituitary gland, infundibular stalk, optic chiasm and hypothalamus. AUDITORY SYSTEM: Unremarkable. The internal auditory canals are patent. BONES/JOINTS: Unremarkable. No discrete lytic or blastic abnormalities. SINUSES: Unremarkable as visualized. Clear. MASTOID AIR CELLS: Unremarkable as visualized. Clear. Left craniotomy defect. ORBITS: Unremarkable as visualized. Both globes, extraocular muscles, optic nerves and retrobulbar fat appear unremarkable. VASCULATURE: Unremarkable as visualized. Normal flow voids in the major intracranial circulation. MRI/Brain W/WO Contrast IMPRESSION: 1. No MRI evidence of recurrent or residual meningioma, mass or acute intracranial abnormality. 2. Chronic white matter ischemic changes in both cerebral hemispheres. 3. No abnormal enhancing lesions intraaxially and extra-axially. Electronically Signed: Tyrell Carter MD at 13:07 EDT ,
--- NOTE | 2021-12-13 09:45 | PN.HOSP_ITS ---
Subjective Subjective Patient seen and examined. She was admitted with a complaint of syncope. She has no complaints this morning. She denies any lightheadedness, dizziness, nausea or any other symptoms. Review of systems is otherwise negative. She has remained hemodynamically stable. She is on room air. Objective Data Objective Data Vital Signs: Vital Signs Temp Pulse Resp BP Pulse Ox O2 Del Method 96.8 F L 54 L 16 134/65 H 95 Room Air 12/13/21 04:15 12/13/21 04:15 12/13/21 04:15 12/13/21 04:15 12/13/21 08:01 12/13/21 08:01 Oxygen Delivery Method Room Air Weight: 175 lb 4.28 oz Body Mass Index (BMI) 29.9 Intake & Output: Intake and Output for Last 24 Hours 12/11/21 12/12/21 12/13/21 23:59 23:59 23:59 Intake Total 2245 / 2245 840 / 840 Balance 2245 / 2245 840 / 840 Lab / Micro Data Result Diagrams: 12/13/21 03:55 12/13/21 03:55 Labs: Laboratory Results - last 24 hr 12/12/21 15:45: WBC 9.1, RBC 3.67 L, Hgb 11.7 L, Hct 36.2 L, MCV 98.6, MCH 31.9, MCHC 32.3, RDW Std Deviation 51.8 H, RDW Coeff of Fredo 14.3, Plt Count 202, MPV 9.7, Immature Gran % (Auto) 0.700, Neut % (Auto) 71.2 H, Lymph % (Auto) 16.3 L, [place] % (Auto) 10.0, Eos % (Auto) 1.7, Baso % (Auto) 0.1, Absolute Neuts (auto) 6.5, Absolute Lymphs (auto) 1.48, Nucleated RBC % 0 12/12/21 15:45: Sodium 138, Potassium 4.4, Chloride 108 H, Carbon Dioxide 27.0, Anion Gap 3 L, BUN 20 H, Creatinine 1.20 H, Estim Creat Clear Calc 34.98, Est GFR (MDRD) Af Amer 56 L, Est GFR (MDRD) Non-Af 46 L, BUN/Creatinine Ratio 16.7, Glucose 135 H, Calcium 8.2 L, Total Bilirubin 0.50, AST 12 L, ALT 17, Alkaline Phosphatase 69, Troponin I High Sens 7, Total Protein 5.8 L, Albumin 2.9 L, Globulin 2.9, Albumin/Globulin Ratio 1.0 12/12/21 17:26: Urine Color Yellow, Urine Clarity Clear, Urine pH 6.5, Ur Specific [place] 1.010, Urine Protein Negative, Urine Glucose (UA) Normal, Urine Ketones Negative, Urine Occult Blood Negative, Urine Nitrite Negative, Urine Bilirubin Negative, Urine Urobilinogen Normal, Ur Leukocyte Esterase Negative, Urine RBC 0 SEEN, Urine WBC 0 SEEN, Ur Squamous Epith Cells 0 SEEN, Urine Bacteria 0 SEEN, Urine Mucus 0 SEEN 12/12/21 17:26: Urine Opiates Screen NEGATIVE, Urine Methadone Screen NEGATIVE, Ur Barbiturates Screen NEGATIVE, Ur Phencyclidine Scrn NEGATIVE, Ur Amphetamines Screen NEGATIVE, MDMA (Ecstasy) Screen NEGATIVE, U Benzodiazepines Scrn NEGATIVE, Urine Cocaine Screen NEGATIVE, U Cannabinoids Screen NEGATIVE, Ur Drug Screen Comment 12/12/21 18:10: Troponin I High Sens 7 12/12/21 18:10: Magnesium 2.3 12/12/21 22:15: Troponin I High Sens 6 12/13/21 03:55: WBC 8.0, RBC 3.45 L, Hgb 11.0 L, Hct 34.6 L, MCV 100.3 H, MCH 31.9, MCHC 31.8 L, RDW Std Deviation 52.5 H, RDW Coeff of Fredo 14.2, Plt Count 199, MPV 9.9, Immature Gran % (Auto) 0.500, Neut % (Auto) 56.1, Lymph % (Auto) 30.3, Wilson % (Auto) 11.3 H, Eos % (Auto) 1.5, Baso % (Auto) 0.3, Absolute Neuts (auto) 4.5, Absolute Lymphs (auto) 2.41, Nucleated RBC % 0 12/13/21 03:55: Sodium 141, Potassium 4.3, Chloride 112 H, Carbon Dioxide 27.0, Anion Gap 2 L, BUN 17, Creatinine 0.96, Estim Creat Clear Calc 43.72, Est GFR (MDRD) Af Amer 73, Est GFR (MDRD) Non-Af 60, BUN/Creatinine Ratio 17.8, Glucose 93, Calcium 8.0 L, Total Bilirubin 0.50, AST 11 L, ALT 15, Alkaline Phosphatase 60, Total Protein 5.3 L, Albumin 2.6 L, Globulin 2.7, Albumin/Globulin Ratio 1.0, TSH 2.36 Radiography Diagnostic Testing: Radiology Impression Brain CT 12/12/21 15:22 IMPRESSION: No acute findings. Microvascular ischemic changes. Electronically Signed: Pushpa Snowden MD at 16:46 EDT Reading Location ID and State: [place] / Tel , Service support , Chest X-Ray 12/12/21 16:00 IMPRESSION: Normal x-ray examination of the chest. Electronically Signed: Pushpa Snowden MD at 16:51 EDT Reading Location ID and State: [place] / Tel , Service support , Physical Exam Const alert, oriented x3 and no apparent distress HEENT head/scalp atraumatic and moist oral mucous membranes Head and Scalp: normocephalic Mouth: oral and palatal mucosa normal and dry mucous membranes Eyes PERRL, EOMs intact bilaterally and conjunctivae normal Neck no lymphadenopathy, supple and no JVD Resp normal respiratory effort, no retractions, no use of accessory muscles and clear to auscultation bilaterally Cardio regular rate, regular rhythm, S1 normal heart sound, S2 normal heart sound and no murmurs GI normal to inspection, nondistended, normoactive bowel sounds, soft to palpation, non-tender and non-distended Extremity normal to inspection, full ROM and no clubbing, cyanosis or edema Neuro oriented x3, CN's II-XII intact bilaterally and moves all extremities Sensorium / Orientation: awake and alert Coordination / Balance: [id number] test normal Motor Exam: strength 5/5 throughout Psych affect normal Assessment & Plan Assessment/Plan (1) Syncope and collapse: PLAN: Plan #SYncope * concerning for seizure as she has a history of brain tumor, and also had associated bladder incontinence * seizure precautions * MRI and EEG pending * neurology consult once MRI and EEG are done * on IV ativan prn * IV keppra * PT/OT on board * #CAD s/p CABG: on aspirin, brilinta, metoprolol and losartan #Hypertension; on metoprolol and losartan #Hyperlipidemia: allergic to statin. #History of brain tumor: s/p craniotomy. Currently considered to be in remission . #Anxiety and depression: on citalopram #History of infra renal abdominal aortic aneurysm * follow up with vascular surgery on outpatient basis. * #Chronic back pain: on oxycodone and baclofen. PT.OT on board. DVT prophylaxis: lovenox Code status: full code Charges/Coding Visit Charges OBSV E&M: 74651 Subsequent observation care L2
[2021-12-13] MEDS: Pantoprazole Sodium 20 MG Tablet PO (10:29)
[2021-12-13] MEDS: Enoxaparin 40 MG/0.4 ML Syringe SC (10:29)
[2021-12-13] MEDS: TICAGRELOR 90 MG TABLET PO ×2 (10:30→22:38)
[2021-12-13] MEDS: Ranolazine 500 MG Tablet 1000 MG PO ×2 (10:31→22:39)
[2021-12-13] MEDS: Losartan Potassium 100 MG Tablet PO (10:34)
[2021-12-13] MEDS: Gabapentin 100 MG Capsule 200 MG PO ×2 (10:43→17:33)
--- NOTE | 2021-12-13 12:05 | TELEMED_ITS ---
[facility] has confirmed receipt of a request for visit. This document confirms receipt of the order initiating the consult. To find the results of the consultation, please view the patient's reports for the scanned Telemed Consult.
--- NOTE | 2021-12-13 14:45 | CASEMGMT ---
PAULINA VILLA in to complete JIMENEZ form with patient and . PAULINA VILLA explained JIMENEZ form to patient, patient voiced understanding. Patient signed JIMENEZ form and filed in chart. Patient provided with copy of signed JIMENEZ form. Patient had no further questions or concerns at this time.
[2021-12-13] MEDS: Docusate Sodium 100 MG Capsule 200 MG PO (22:39)
[2021-12-13] MEDS: Citalopram 20 MG Tablet PO (22:39)
[2021-12-13] MEDS: Isosorbide Mononitrate 60 MG Tablet PO (22:40)
[2021-12-14] VITALS (12 sets, daily range): BP systolic 135–161; BP diastolic 58–84; PULSE 56–82; RESP 16–20; TEMP 36.6–36.9; O2SAT 95–99
[2021-12-14] MEDS: 0.9% Normal Saline 1,000 ML 100 ML IV (02:29)
[2021-12-14] MEDS: oxyCODONE 5 MG Tablet 7.5 MG PO ×3 (08:59→23:00)
[2021-12-14 09:00] LABS: Absolute Lymphocyte Count 1.57 X10^3/uL (0.83-4.51); Absolute Neutrophil Count 6.5 X10^3/uL (2.0-7.7); Basophil# 0.02 X10^3/uL; Basophil% 0.2 % (0-1); Eosinophils% 1.1 % (0-5); Hematocrit 35.5 % (37-47); Hemoglobin 11.3 g/dL (12.0-15.0); Lymphocyte # 1.57 X10^3/ul (0.83-4.51); Lymphocyte % 17.3 % (19-41); Mean Corp Hgb Conc 31.8 g/dL (32-36); Mean Corpuscular Hgb 32.1 pg (27.0-32.0); Mean Corpuscular Volume 100.9 fL (81-99); Mean Platelet Vol. 9.8 fl (6.2-12.0); Monocyte# 0.86 X10^3/uL; Monocyte% 9.5 % (0-10); NRBC Flagged by Analyzer 0 % (0-5); Neutrophil # 6.46 X10^3/uL (2.7-7.7); Neutrophil % 71.5 % (47-70); Platelet Count 202 K/mm3 (150-450); RBC Distribution Width CV 14.3 % (11.6-14.6); RBC Distribution Width SD 53.1 fl (35.1-43.9); Red Blood Count 3.52 M/mm3 (4.2-5.4); White Blood Count 9.1 K/mm3 (4.4-11.0)
[2021-12-14 09:20] LABS: Anion Gap 3 (5-15); BUN 16 mg/dL (7-18); BUN/Creat Ratio 17.6 RATIO (10-20); Calcium,Total 8.3 mg/dL (8.5-10.1); Chloride 109 mmol/L (98-107); Creatinine, Serum 0.91 mg/dL (0.55-1.02); EST Glomerular Filtration Rate 64 mL/min (>60); Est Glom Filt Rate - Afr Amer 77 mL/min (>60); Estimated Creatinine Clearance 46.13 ml/min; Glucose 104 mg/dL (74-106); Potassium 4.3 mmol/L (3.5-5.1); Sodium Level 139 mmol/L (136-145)
[2021-12-14] MEDS: TICAGRELOR 90 MG TABLET PO ×2 (09:23→21:04)
[2021-12-14] MEDS: 0.9% Saline Lock 10 ML Syringe IV ×2 (09:24→21:01)
[2021-12-14] MEDS: Enoxaparin 40 MG/0.4 ML Syringe SC (09:25)
[2021-12-14] MEDS: Isosorbide Mononitrate 60 MG Tablet PO ×2 (09:25→21:04)
[2021-12-14] MEDS: Losartan Potassium 100 MG Tablet PO (09:25)
[2021-12-14] MEDS: Pantoprazole Sodium 20 MG Tablet PO (09:25)
[2021-12-14] MEDS: Ranolazine 500 MG Tablet 1000 MG PO ×2 (09:26→21:08)
[2021-12-14] MEDS: Gabapentin 100 MG Capsule 200 MG PO ×2 (09:32→16:49)
[2021-12-14 10:28] LABS: Bacteria 0 SEEN /hpf (None Seen); Mucous, Urine 0 SEEN /hpf (<or=2+); Red Blood Cells-Urine 0 SEEN /hpf (0-5); Squamous Epithelial Cells - UA 0 SEEN /hpf (5-10); White Blood Cells 0 SEEN /hpf (0-5)
--- NOTE | 2021-12-14 10:34 | PN.HOSP_ITS ---
Subjective Subjective Patient seen and examined. She complains of left flank pain. She denies any history of kidney stones. SHe denies any fever or chills or burning with urination. Review of systems is otherwise negative. She is awaiting neurology evaluation. She has remained hemodynamically stable. Objective Data Objective Data Vital Signs: Vital Signs Temp Pulse Resp BP Pulse Ox O2 Del Method 97.9 F 63 20 H 146/62 H 95 Room Air 12/14/21 08:40 12/14/21 08:40 12/14/21 08:40 12/14/21 08:40 12/14/21 08:40 12/14/21 08:40 Oxygen Delivery Method Room Air Weight: 181 lb 14.102 oz Body Mass Index (BMI) 29.9 Intake & Output: Intake and Output for Last 24 Hours 12/12/21 12/13/21 12/14/21 23:59 23:59 23:59 Intake Total 2245 / 2245 / 1841.67 / 1841.67 Output Total 220 / 220 Balance 2245 / 2245 / 1621.67 / 1621.67 Lab / Micro Data Result Diagrams: 12/14/21 08:37 12/14/21 08:37 Labs: Laboratory Results - last 24 hr 12/14/21 08:37: WBC 9.1, RBC 3.52 L, Hgb 11.3 L, Hct 35.5 L, MCV 100.9 H, MCH 32.1 H, MCHC 31.8 L, RDW Std Deviation 53.1 H, RDW Coeff of Fredo 14.3, Plt Count 202, MPV 9.8, Immature Gran % (Auto) 0.400, Neut % (Auto) 71.5 H, Lymph % (Auto) 17.3 L, [place] % (Auto) 9.5, Eos % (Auto) 1.1, Baso % (Auto) 0.2, Absolute Neuts (auto) 6.5, Absolute Lymphs (auto) 1.57, Nucleated RBC % 0 12/14/21 08:37: Sodium 139, Potassium 4.3, Chloride 109 H, Carbon Dioxide 27.0, Anion Gap 3 L, BUN 16, Creatinine 0.91, Estim Creat Clear Calc 46.13, Est GFR (MDRD) Af Amer 77, Est GFR (MDRD) Non-Af 64, BUN/Creatinine Ratio 17.6, Glucose 104, Calcium 8.3 L Radiography Diagnostic Testing: Radiology Impression Brain MRI 12/13/21 05:55 IMPRESSION: 1. No MRI evidence of recurrent or residual meningioma, mass or acute intracranial abnormality. 2. Chronic white matter ischemic changes in both cerebral hemispheres. 3. No abnormal enhancing lesions intraaxially and extra-axially. Electronically Signed: Tyrell Carter MD at 13:07 EDT , Physical Exam Const alert, oriented x3 and no apparent distress HEENT head/scalp atraumatic and moist oral mucous membranes Eyes PERRL, EOMs intact bilaterally and conjunctivae normal Neck no lymphadenopathy, supple and no JVD Resp normal respiratory effort, no retractions, no use of accessory muscles and clear to auscultation bilaterally Cardio regular rate, regular rhythm, S1 normal heart sound, S2 normal heart sound and no murmurs GI normal to inspection, nondistended, normoactive bowel sounds, soft to palpation and non-distended GI Narrative: moderate left costophrenic angle tenderness Extremity normal to inspection, full ROM and no clubbing, cyanosis or edema Neuro oriented x3, CN's II-XII intact bilaterally and moves all extremities Sensorium / Orientation: awake and alert Coordination / Balance: [id number] test normal Motor Exam: strength 5/5 throughout Psych affect normal Assessment & Plan Assessment/Plan (1) Syncope and collapse: PLAN: Plan #SYncope * concerning for seizure as she has a history of brain tumor, and also had associated bladder incontinence * seizure precautions * MRI shows no evidence of residual or recurrent meningioma, mass or acute intracranial abnormality. * EEG was abnormal showing focal slowing, sharp and brief runs of CERTIFIED NURSING ASSISTANT in the left frontotemporal region * neurology consulted. await rec's * on IV ativan prn * IV keppra * PT/OT on board * fall precautions * #Left costophrenic angle tenderness * urinalysis on admission showed no evidence of UTI * will repeat urinalysis. * she denies any history of kidney stones. * await UA, if negative, will get CT abdomen to evaluate for kidney stones. * IV morphine prn as well as PO oxycodone prn and PO tylenol prn * #CAD s/p CABG: on aspirin, brilinta, metoprolol and losartan #Hypertension; on metoprolol and losartan #Hyperlipidemia: allergic to statin. #History of brain tumor: s/p craniotomy. Currently considered to be in remission. #Anxiety and depression: on citalopram #History of infra renal abdominal aortic aneurysm * follow up with vascular surgery on outpatient basis. * #Chronic back pain: on oxycodone and baclofen. PT.OT on board. DVT prophylaxis: lovenox Code status: full code Charges/Coding Visit Charges Inpatient E&M: 62292 Subs Hosp L2
[2021-12-14 11:15] LABS: Color, Urine Yellow (Yellow); Urine Clarity Clear (Clear)
[2021-12-14 11:16] LABS: Glucose, Dipstick NEGATIVE (Normal); Ketone-Dipstick Negative (Negative); Leukocyte Esterase-Dipstick Negative /ul (Negative); Nitrite-Dipstick Negative (Negative); Occult Blood-Urine Negative /ul (Negative); Protein-Dipstick Negative (Negative); Specific Gravity, Urine 1.015 (1.002-1.030); Urine Bilirubin Dipstick Negative (Negative); Urine Urobilinogen Normal (Normal)
--- NOTE | 2021-12-14 15:53 | CASEMGMT ---
Per therapy, no further therapy recommended. Awaiting neuro c/s. Robinson GALLARDO CM
[2021-12-14] MEDS: Morphine 2 MG/ML Syringe 1 MG IV (20:53)
[2021-12-14] MEDS: Citalopram 20 MG Tablet PO (21:04)
[2021-12-14] MEDS: Docusate Sodium 100 MG Capsule 200 MG PO (21:04)
[2021-12-15] VITALS (15 sets, daily range): BP systolic 146–188; BP diastolic 59–70; PULSE 58–68; RESP 14–18; TEMP 36.8–37.2; O2SAT 96–100
[2021-12-15] MEDS: Morphine 2 MG/ML Syringe 1 MG IV (03:04)
[2021-12-15] MEDS: 0.9% Saline Lock 10 ML Syringe IV ×7 (03:04→20:45)
[2021-12-15] MEDS: hydrALAZINE 20 MG/ML Vial 10 MG IV (05:43)
[2021-12-15] MEDS: oxyCODONE 5 MG Tablet 7.5 MG PO ×2 (05:45→20:48)
[2021-12-15] MEDS: Morphine 2 MG/ML Syringe IV ×3 (06:52→15:52)
--- NOTE | 2021-12-15 07:39 | CT_ITS ---
HISTORY: left flank pain. TECHNIQUE: Helically acquired images were obtained of the abdomen and pelvis before and after the intravenous administration of 100mL Isovue-370. A radiation dose optimization technique was used for this scan. 520 images. COMPARISON: 05/14/2021. FINDINGS: LOWER CHEST: Normal scarring in the lung bases. BOWEL: Bowel nondilated. Appendix not visualized. Colonic diverticulosis without focal inflammatory change. PERITONEUM: No significant ascites. LIVER: No enhancing mass. GALLBLADDER/BILIARY TREE: Prominence of the biliary ducts, likely postcholecystectomy. SPLEEN/PANCREAS: Homogeneous and nonenlarged. KIDNEYS: No nephrolithiasis or obstructing ureteral calculus. Normal enhancement. ADRENAL GLANDS: No nodules. VESSELS: Calcified and noncalcified plaque of the suprarenal abdominal aorta with mild periaortic stranding at the level of the hiatus and celiac axis origin. Unchanged size of 3.6 cm infrarenal abdominal aortic aneurysm without acute retroperitoneal hematoma or contrast leak. Atherosclerosis of the abdominal aorta and its major branches. PELVIC ORGANS: Absent uterus. ABDOMINAL WALL: Wide necked fat-containing ventral hernia. BONES: Degenerative change. CT/CT Abd/Pelvis W/WO Contrast IMPRESSION: Mild infrarenal abdominal aortic aneurysm, stable in size. Mild periaortic stranding of the suprarenal abdominal aorta, which may represent mild periaortitis, retroperitoneal fibrosis, or vasculitis. Negative examination for renal stone. Colonic diverticulosis without acute diverticulitis. Electronically Signed: Laney Ewing MD at 8:59 EDT ,
[2021-12-15] MEDS: Metoprolol(XL)Succ 25 MG Tablet PO (07:52)
[2021-12-15] MEDS: Pantoprazole Sodium 20 MG Tablet PO (07:53)
[2021-12-15] MEDS: Enoxaparin 40 MG/0.4 ML Syringe SC (07:53)
[2021-12-15] MEDS: Isosorbide Mononitrate 60 MG Tablet PO ×2 (07:53→20:50)
[2021-12-15] MEDS: Losartan Potassium 100 MG Tablet PO (07:54)
[2021-12-15] MEDS: TICAGRELOR 90 MG TABLET PO ×2 (07:54→20:50)
[2021-12-15] MEDS: Ranolazine 500 MG Tablet 1000 MG PO ×2 (07:58→20:51)
[2021-12-15] MEDS: Gabapentin 100 MG Capsule 200 MG PO ×2 (07:59→16:06)
[2021-12-15 10:10] LABS: Lipase 45 U/L (73-393)
[2021-12-15 15:20] LABS: Troponin-I HS 10 pg/mL (3.0-54.0)
--- NOTE | 2021-12-15 16:15 | PN.HOSP_ITS ---
Subjective Subjective Patient seen and examined. She still complains of right flank pain which is now radiating to her epigastric region. She describes pain as an aching pain. She has no other symptoms today. She still awaiting urology evaluation. Objective Data Objective Data Vital Signs: Vital Signs Temp Pulse Resp BP Pulse Ox O2 Del Method 98.9 F 58 L 14 157/65 H 98 Room Air 12/15/21 11:51 12/15/21 12:39 12/15/21 11:51 12/15/21 11:51 12/15/21 11:51 12/15/21 11:51 Oxygen Delivery Method Room Air Weight: 183 lb 3.266 oz Body Mass Index (BMI) 29.9 Intake & Output: Intake and Output for Last 24 Hours 12/13/21 12/14/21 12/15/21 23:59 23:59 23:59 Intake Total 2546.67 / 2546.67 455 / 455 Output Total 220 / 220 Balance 2326.67 / 2326.67 455 / 455 Lab / Micro Data Result Diagrams: 12/14/21 08:37 12/14/21 08:37 Labs: Laboratory Results - last 24 hr 12/15/21 09:30: Lipase 45 L 12/15/21 14:50: Troponin I High Sens 10 Radiography Diagnostic Testing: Radiology Impression Abdomen/Pelvis CT 12/15/21 07:39 IMPRESSION: Mild infrarenal abdominal aortic aneurysm, stable in size. Mild periaortic stranding of the suprarenal abdominal aorta, which may represent mild periaortitis, retroperitoneal fibrosis, or vasculitis. Negative examination for renal stone. Colonic diverticulosis without acute diverticulitis. Electronically Signed: Laney Ewing MD at 8:59 EDT , Physical Exam Const alert, oriented x3 and no apparent distress HEENT head/scalp atraumatic and moist oral mucous membranes Head and Scalp: normocephalic Mouth: oral and palatal mucosa normal Eyes PERRL, EOMs intact bilaterally and conjunctivae normal Neck no lymphadenopathy, supple and no JVD Resp normal respiratory effort, no retractions, no use of accessory muscles and clear to auscultation bilaterally Cardio regular rate, regular rhythm, S1 normal heart sound, S2 normal heart sound and no murmurs GI normal to inspection, nondistended, normoactive bowel sounds, soft to palpation, non-tender and non-distended GI Narrative: moderate left costophrenic angle tenderness, which radiates to her epigstric region Extremity normal to inspection, full ROM and no clubbing, cyanosis or edema Neuro oriented x3, CN's II-XII intact bilaterally, moves all extremities and no focal motor deficits Sensorium / Orientation: awake and alert Coordination / Balance: [id number] test normal Motor Exam: strength 5/5 throughout Psych affect normal Assessment & Plan Assessment/Plan (1) Syncope and collapse: PLAN: Plan #SYncope * concerning for seizure as she has a history of brain tumor, and also had associated bladder incontinence * seizure precautions * MRI shows no evidence of residual or recurrent meningioma, mass or acute intracranial abnormality. * EEG was abnormal showing focal slowing, sharp and brief runs of HUMAN GEOGRAPHY INSTRUCTOR in the left frontotemporal region * neurology consulted. still awaiting recommendations await rec's * on IV ativan prn * IV keppra * PT/OT on board * fall precautions * #Left costophrenic angle tenderness * urinalysis on admission showed no evidence of UTI * repeat urinalysis still showed no evidence of UTI * CT abdomen and pelvis showed no evidence of kidney stones. * lipase is only 45, and tropnins are negative * she does admit to a history of fibromyalgia, which can explain her symptoms * IV morphine prn as well as PO oxycodone prn and PO tylenol prn * #CAD s/p CABG: on aspirin, brilinta, metoprolol and losartan #Hypertension; on metoprolol and losartan #Hyperlipidemia: allergic to statin. #History of brain tumor: s/p craniotomy. Currently considered to be in remission. #Anxiety and depression: on citalopram #History of infra renal abdominal aortic aneurysm * follow up with vascular surgery on outpatient basis. * #Chronic back pain: on oxycodone and baclofen. PT.OT on board. DVT prophylaxis: lovenox Code status: full code Charges/Coding Visit Charges Inpatient E&M: 04508 Subs Hosp L2
[2021-12-15 20:12] LABS: Troponin-I HS 9 pg/mL (3.0-54.0)
[2021-12-15] MEDS: Docusate Sodium 100 MG Capsule 200 MG PO (20:50)
[2021-12-15] MEDS: Citalopram 20 MG Tablet PO (20:50)
[2021-12-15 20:51] LABS: Erythrocyte Sedimentation Rate 60 mm/hr (0-30)
[2021-12-15 20:55] LABS: Troponin-I HS 8 pg/mL (3.0-54.0)
[2021-12-16] VITALS (13 sets, daily range): BP systolic 127–196; BP diastolic 56–87; PULSE 57–66; RESP 16–18; TEMP 36.5–36.9; O2SAT 94–99
[2021-12-16] MEDS: oxyCODONE 5 MG Tablet 7.5 MG PO ×2 (05:42→14:58)
[2021-12-16 05:49] LABS: Absolute Lymphocyte Count 1.68 X10^3/uL (0.83-4.51); Absolute Neutrophil Count 5.7 X10^3/uL (2.0-7.7); Basophil# 0.02 X10^3/uL; Basophil% 0.2 % (0-1); Eosinophils% 1.2 % (0-5); Hemoglobin 11.5 g/dL (12.0-15.0); Lymphocyte # 1.68 X10^3/ul (0.83-4.51); Lymphocyte % 19.8 % (19-41); Mean Corp Hgb Conc 31.9 g/dL (32-36); Mean Corpuscular Hgb 31.4 pg (27.0-32.0); Mean Corpuscular Volume 98.4 fL (81-99); Mean Platelet Vol. 9.9 fl (6.2-12.0); Monocyte# 0.93 X10^3/uL; Monocyte% 10.9 % (0-10); NRBC Flagged by Analyzer 0 % (0-5); Neutrophil # 5.74 X10^3/uL (2.7-7.7); Neutrophil % 67.5 % (47-70); Platelet Count 220 K/mm3 (150-450); RBC Distribution Width CV 13.9 % (11.6-14.6); RBC Distribution Width SD 50.5 fl (35.1-43.9); Red Blood Count 3.66 M/mm3 (4.2-5.4); White Blood Count 8.5 K/mm3 (4.4-11.0)
--- NOTE | 2021-12-16 05:55 | ECHOD_ITS ---
Reason For Study: EMBOLI Procedure This was a 2D Doppler, Color Flow transthoracic echocardiogram. The exam was of adequate technical quality. Exam performed portable in patient room. Left Ventricle Normal LV size. Left ventricular systolic function is normal. The estimated ejection fraction is 65 %. Diastolic function is indeterminate. No regional wall motion abnormalities noted. Right Ventricle Normal RV size. Normal systolic function. Atria The left atrium is mildly enlarged. Normal right atrium. No doppler evidence for ASD. Bubble contrast study negative for right to left interatrial shunt. Mitral Valve There is mild mitral annular calcification. Normal mitral valve. Mild-Moderate (1-2+) mitral valve insufficiency. Tricuspid Valve Normal tricuspid valve. Mild tricuspid valve insufficiency. Unable to estimate RV systolic pressure due to insufficient tricuspid regurgitant envelope. Aortic Valve Trisinus/trileaflet aortic valve. Mild focal aortic valve calcification. Trivial aortic valve insufficiency. Pulmonic Valve The pulmonic valve is not well visualized. Great Vessels Normal sized aortic root. Pericardium/Pleural No pericardial effusion. Medication Performed a rapid injection of agitated mix of 9 cc saline and 1cc air to assess for atrial septal defect. MMode/2D Measurements & Calculations LVIDd: 4.8 cm IVSd: 0.89 cm Ao root diam: 3.0 cm LVIDs: 2.6 cm LVPWd: 1.00 cm RVDd: 2.9 cm FS: 45.9 % LAV(MOD-bp): 46.6 ml LVAd ap4: 16.7 cm2 SV(MOD-sp4): 20.1 ml LAV(MOD-bp) Indexed: 24.7 ml/m2 LVLd ap4: 5.8 cm LAV(MOD-sp2): 61.4 ml EDV(MOD-sp4): 39.6 ml LAV(MOD-sp4): 32.4 ml EDV(sp4-el): 40.9 ml LVAs ap4: 10.6 cm2 LVLs ap4: 5.2 cm ESV(MOD-sp4): 19.6 ml ESV(sp4-el): 18.3 ml EF(MOD-sp4): 50.7 % EF(sp4-el): 55.2 % SV(sp4-el): 22.6 ml LA A4 area: 15.4 cm2 LA dimension(2D): 4.3 cm RA A4 area: 13.7 cm2 Time Measurements MV dec time: 0.23 sec Doppler Measurements & Calculations MV E max zuhair: 92.6 cm/sec Lat Peak E' Zuhair: 8.8 cm/sec Med Peak E' Zuhair: 5.2 cm/sec MV A max zuhair: 64.7 cm/sec E/E' lat: 10.6 E/E' med: 17.9 MV E/A: 1.4 MV V2 max: 103.0 cm/sec MV dec slope: 413.5 cm/sec2 Ao V2 max: 175.0 cm/sec MV max P.2 mmHg Ao max P.3 mmHg MV V2 mean: 57.5 cm/sec Ao V2 mean: 122.7 cm/sec MV mean P.5 mmHg Ao mean P.9 mmHg MV V2 VTI: 37.8 cm Ao V2 VTI: 40.2 cm LV V1 max: 130.5 cm/sec PA V2 max: 105.4 cm/sec LV V1 max P.9 mmHg PA V2 mean: 77.1 cm/sec LV V1 mean P.8 mmHg LV V1 mean: 92.4 cm/sec LV V1 VTI: 29.2 cm ECHO/Echo Complete Interpretation Summary Left ventricular systolic function is normal. The estimated ejection fraction is 65 %. The left atrium is mildly enlarged. There is mild mitral annular calcification. Mild-Moderate (1-2+) mitral valve insufficiency. Mild tricuspid valve insufficiency. Mild focal aortic valve calcification. Trivial aortic valve insufficiency. Unable to estimate RV systolic pressure due to insufficient tricuspid regurgita nt envelope. Diastolic function is indeterminate. Bubble contrast study negative for right to left interatrial shunt. Ordering Physician: Marylu Cisneros Performed By: Lisa Mendez RCS
[2021-12-16 06:17] LABS: Anion Gap 6 (5-15); BUN 13 mg/dL (7-18); BUN/Creat Ratio 15.7 RATIO (10-20); Calcium,Total 8.5 mg/dL (8.5-10.1); Chloride 104 mmol/L (98-107); Creatinine, Serum 0.83 mg/dL (0.55-1.02); EST Glomerular Filtration Rate 72 mL/min (>60); Est Glom Filt Rate - Afr Amer 87 mL/min (>60); Estimated Creatinine Clearance 50.57 ml/min; Glucose 94 mg/dL (74-106); Potassium 3.7 mmol/L (3.5-5.1); Sodium Level 137 mmol/L (136-145)
--- NOTE | 2021-12-16 08:51 | PN.HOSP_ITS ---
Subjective Subjective Complains of left flank pain since event. Notes that she does not sleep. Had been on Lunsta, but stopped due to sleepiness. Objective Data Objective Data Vital Signs: Vital Signs Temp Pulse Resp BP Pulse Ox O2 Del Method 36.6 C 61 18 160/78 H 98 Room Air 12/16/21 05:35 12/16/21 07:00 12/16/21 05:35 12/16/21 05:40 12/16/21 05:35 12/16/21 07:41 Oxygen Delivery Method Room Air Weight: 84.2 kg Body Mass Index (BMI) 29.9 Intake & Output: Intake and Output for Last 24 Hours 12/14/21 12/15/21 12/16/21 23:59 23:59 23:59 Intake Total 2546.67 / 2546.67 960 / 960 Output Total 220 / 220 Balance 2326.67 / 2326.67 960 / 960 Lab / Micro Data Result Diagrams: 12/16/21 04:47 12/16/21 04:47 Labs: Laboratory Results - last 24 hr 12/15/21 09:30: Lipase 45 L 12/15/21 14:50: Troponin I High Sens 10 12/15/21 17:24: Troponin I High Sens 9, C-React Prot Ext Range 104.00 H 12/15/21 20:25: Troponin I High Sens 8 12/15/21 20:25: ESR 60 H 12/16/21 04:47: WBC 8.5, RBC 3.66 L, Hgb 11.5 L, Hct 36.0 L, MCV 98.4, MCH 31.4, MCHC 31.9 L, RDW Std Deviation 50.5 H, RDW Coeff of Fredo 13.9, Plt Count 220, MPV 9.9, Immature Gran % (Auto) 0.400, Neut % (Auto) 67.5, Lymph % (Auto) 19.8, [place] % (Auto) 10.9 H, Eos % (Auto) 1.2, Baso % (Auto) 0.2, Absolute Neuts (auto) 5.7, Absolute Lymphs (auto) 1.68, Nucleated RBC % 0 12/16/21 04:47: Sodium 137, Potassium 3.7, Chloride 104, Carbon Dioxide 27.0, Anion Gap 6, BUN 13, Creatinine 0.83, Estim Creat Clear Calc 50.57, Est GFR (MDRD) Af Amer 87, Est GFR (MDRD) Non-Af 72, BUN/Creatinine Ratio 15.7, Glucose 94, Calcium 8.5 Radiography Diagnostic Testing: Radiology Impression Abdomen/Pelvis CT 12/15/21 07:39 IMPRESSION: Mild infrarenal abdominal aortic aneurysm, stable in size. Mild periaortic stranding of the suprarenal abdominal aorta, which may represent mild periaortitis, retroperitoneal fibrosis, or vasculitis. Negative examination for renal stone. Colonic diverticulosis without acute diverticulitis. Electronically Signed: Laney Ewing MD at 8:59 EDT , Physical Exam Const alert and no apparent distress HEENT head/scalp atraumatic and moist oral mucous membranes Eyes PERRL and EOMs intact bilaterally Resp normal respiratory effort, no retractions, no use of accessory muscles and clear to auscultation bilaterally Cardio regular rate, regular rhythm, S1 normal heart sound and S2 normal heart sound GI normal to inspection, nondistended, normoactive bowel sounds, soft to palpation and non-tender GI Narrative: left lower rib pain. no rash. Extremity normal to inspection and full ROM Neuro oriented x3, CN's II-XII intact bilaterally and moves all extremities Psych affect normal Assessment & Plan Assessment/Plan (1) Syncope and collapse: PLAN: Plan 1. Seizure * seizure precautions * may be exacerbated by chronic insomnia * MRI shows no evidence of residual or recurrent meningioma, mass or acute intracranial abnormality. * EEG was abnormal showing focal slowing, sharp and brief runs of CLAY ROASTER in the left frontotemporal region * neurology consulted. concern for Seizure. Concern for possible right frontal lobe punctate hyperintensity. * on IV ativan prn * Keppra 500 BID. * PT/OT on board * fall precautions * given concern for vasculitis: repeat MRI brain, CTA head and neck 2. Left costophrenic angle tenderness * urinalysis on admission showed no evidence of UTI * repeat urinalysis still showed no evidence of UTI * CT abdomen and pelvis showed no evidence of kidney stones. * lipase is only 45, and tropnins are negative * she does admit to a history of fibromyalgia, which can explain her symptoms * supportive mgmt 3. CAD s/p CABG: on aspirin, brilinta, metoprolol and losartan 4. Hypertension; on metoprolol and losartan 5. Hyperlipidemia: allergic to statin. 6. History of brain tumor: s/p craniotomy. Currently considered to be in remission. 7. Anxiety and depression: on citalopram 8. History of infra renal abdominal aortic aneurysm * follow up with vascular surgery on outpatient basis. * 9. Chronic back pain: on oxycodone and baclofen. PT.OT on board. 10. DVT prophylaxis: lovenox 11. insomnia: add trazodone. Code status: full code Charges/Coding Visit Charges Inpatient E&M: 09157 Subs Hosp L3
--- NOTE | 2021-12-16 08:59 | MRI_ITS ---
EXAM: MR HEAD WITHOUT AND WITH INTRAVENOUS CONTRAST CLINICAL INDICATION: seizure -- concern for vasculitis TECHNIQUE: Multiplanar and multisequence MR images of the brain were obtained without and with intravenous contrast. This report was created using [employer] report [employer] technology. CONTRAST: IV Yes YES COMPARISON: MR Head dated 12/13/2021 FINDINGS: BRAIN AND EXTRA-AXIAL SPACES: Increased T2 signal intensity within the cerebral white matter suggestive of chronic microvascular change. No abnormal contrast enhancement. No intra- or extra-axial hemorrhage. No evidence of acute infarct. No intracranial mass or mass effect. There is preservation of the [place]/white matter interface. Posterior fossa structures are unremarkable. Ventricles are appropriate for age. No hydrocephalus. Basal cisterns are patent. SELLA: Normal. Normal sella turcica, pituitary gland, infundibular stalk, optic chiasm and hypothalamus. AUDITORY SYSTEM: Normal. The internal auditory canals are patent. BONES/JOINTS: Intact calvarium. SINUSES: Unremarkable as visualized. Clear. MASTOID AIR CELLS: Unremarkable as visualized. Clear. ORBITS: Unremarkable as visualized. Both globes, extraocular muscles, optic nerves and retrobulbar fat appear unremarkable. VASCULATURE: Unremarkable as visualized. Normal flow voids in the major intracranial circulation. MRI/Brain W/WO Contrast IMPRESSION: 1. No acute intracranial abnormality. 2. Stable chronic microvascular changes Electronically Signed: Jw Jung MD at 15:17 EDT ,
--- NOTE | 2021-12-16 08:59 | CT_ITS ---
INDICATION: seizure -- concern for underlying vasculitis EXAMINATION: CTA HEAD - CTA Head and Neck W/ Contrast Injection (and W/O Contrast Images if performed) TECHNIQUE: [place] of [place]/head CT angiogram protocol was performed following IV contrast. Routine carotid CT angiogram protocol was performed without and with IV contrast. NASCET criteria using the distal ICAs for comparison were used for evaluation of stenoses. 3D reconstructions were reviewed of the CT angiogram head and neck. A radiation dose optimization technique was used for this scan. IV Contrast dosage and agent: 100 cc of Isovue- COMPARISON: None. FINDINGS: --Anterior cerebral circulation: ACAs: No significant stenosis of the right KATARZYNA. 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 ACOM: Present. MCAs: No significant stenosis at the visualized segments. --Posterior cerebral circulation: PCOMs: Right P-comm is present, bread wrapper operator: No significant stenosis at the visualized segments. BASILAR ARTERY: No significant stenosis. --Carotid and vertebral circulation: AORTIC ARCH AND BRANCHES: Normal anatomy, patent. RIGHT CCA: No occlusion, significant stenosis or dissection. RIGHT ICA: Prominent calcific plaquing at the origin resulting in less than 50% stenosis. LEFT CCA: No occlusion, significant stenosis or dissection. LEFT ICA: Prominent calcific plaquing at the origin resulting in less than 70% stenosis. RIGHT VERTEBRAL ARTERY: No occlusion, significant stenosis or dissection. LEFT VERTEBRAL ARTERY: No occlusion, significant stenosis or dissection. NECK SOFT TISSUES: Unremarkable. LUNG APICES: Clear. BONES: Unremarkable. CT/CTA Head AND Neck W/ Contrast IMPRESSION: Less than 50% stenosis of the origin of the right internal carotid artery. Less than 70% stenosis of the origin of the left internal carotid artery. No evidence of vasculitis. Electronically Signed: Jw Jung MD at 11:51 EDT ,
[2021-12-16] MEDS: Acetaminophen 325 MG Tablet 650 MG PO ×2 (09:55→14:58)
[2021-12-16] MEDS: hydrOXYzine PAM 25 MG Capsule PO (09:55)
[2021-12-16] MEDS: levETIRAcetam 500 MG Tablet PO (09:55)
[2021-12-16] MEDS: Gabapentin 100 MG Capsule 200 MG PO ×2 (09:55→16:41)
[2021-12-16] MEDS: Enoxaparin 40 MG/0.4 ML Syringe SC (09:55)
[2021-12-16] MEDS: Pantoprazole Sodium 20 MG Tablet PO (09:56)
[2021-12-16] MEDS: TICAGRELOR 90 MG TABLET PO (09:56)
[2021-12-16] MEDS: Isosorbide Mononitrate 60 MG Tablet PO (09:56)
[2021-12-16] MEDS: Metoprolol(XL)Succ 25 MG Tablet PO (09:56)
[2021-12-16] MEDS: Losartan Potassium 100 MG Tablet PO (09:56)
[2021-12-16] MEDS: Ranolazine 500 MG Tablet 1000 MG PO (09:58)
[2021-12-16] MEDS: hydrALAZINE 20 MG/ML Vial 10 MG IV (15:03)
[2021-12-16] MEDS: 0.9% Saline Lock 10 ML Syringe IV (15:03)
--- NOTE | 2021-12-16 16:33 | DCINST_ITS ---
Discharge Instructions Diet Discharge Diet: No restrictions Dressing / Incision Call your doctor if you observe: - (seizure. unresponsive epidosodes.) Follow Up Care Test Results: Test results from this visit will be discussed in further detail at your follow- up appointment, if applicable. Discharge Plan Admission Admit Date/Time: 12/12/21 19:13 Primary Reason for Your Visit: seizure Attending Provider: Ruddy Armas Primary Care Provider: Stacie Rivers NP Consulting Providers: Telma Hamlin ; Marylu Cisneros Discharge Orders/Prescriptions Prescriptions: New levetiracetam 500 mg Tablet 500 mg PO BID Qty: 60 0RF trazodone 50 mg Tablet 50 mg PO QHS Qty: 30 0RF acetaminophen 500 mg capsule 1,000 mg PO Q8H PRN PRN (Reason: pain) Qty: 30 0RF Continued furosemide [Lasix] 20 mg tablet 20 mg PO DAILY PRN PRN (Reason: fluid) pantoprazole 20 mg tablet,delayed release (DR/EC) 20 mg PO DAILY docusate sodium 100 mg Capsule 200 mg PO QHS hydroxyzine HCl 25 mg Tablet 25 mg PO PRN PRN (Reason: Itching) gabapentin 100 mg capsule 200 mg PO BID Label Comments: TAKE 2 CAPSULES BY MOUTH 3 TIMES A DAY oxycodone-acetaminophen 7.5-325 mg tablet 1 tab PO Q6H PRN (Reason: Pain) baclofen 5 mg tablet 2.5 - 5 mg PO TID PRN (Reason: Spasms) Label Comments: TAKE 1/2 TO 1 TABLET BY MOUTH THREE TIMES A DAY NEEDED FOR SPASMS ondansetron 4 MG tablet 4 mg PO Q8H PRN PRN (Reason: Nausea) Qty: 10 0RF citalopram 20 mg tablet 20 mg PO QHS isosorbide mononitrate 60 mg tablet extended release 24 hr 60 mg PO BID Qty: 180 3RF losartan 100 mg tablet 100 mg PO DAILY Qty: 90 3RF metoprolol succinate 25 mg tablet extended release 24 hr 25 mg PO DAILY Qty: 90 3RF nitroglycerin 0.4 mg tablet, sublingual 0.4 mg SL PRN PRN (Reason: Cardiac/Chest Pain) Qty: 25 4RF ranolazine 1,000 mg tablet extended release 12 hr 1,000 mg PO BID Qty: 180 3RF ticagrelor 90 mg tablet 90 mg PO BID Qty: 180 3RF Referrals / Follow Up: Patrick Vincent MD [NON-STAFF] - Within 1 Month (Neurology for seizure follow up.) Stacie Rivers NP, COAL EQUIPMENT OPERATOR-C [Primary Care Provider] - Within 2 Weeks Disposition Disposition (needs filled in before D/C Order can be placed): Home, Self Care
--- NOTE | 2021-12-16 16:38 | DS.PCM_ITS ---
Providers Date of Admission: 12/12/21 Date of Discharge: 12/16/21 Primary Care Physician: Stacie Rivers, AMANDAC Reason For Visit: UNRESPONSIVE EPISOD Diagnosis Discharge Diagnosis (1) Syncope and collapse: Status: Acute Code(s): R55 - Syncope and collapse (2) Seizure: Status: Acute Code(s): R56.9 - Unspecified convulsions Plan 1. Seizure * seizure precautions * may be exacerbated by chronic insomnia. Start trazodone. * MRI shows no evidence of residual or recurrent meningioma, mass or acute intracranial abnormality. 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 concern for Seizure. Concern for possible right frontal lobe punctate hyperintensity. * on IV ativan prn * Keppra 500 BID. * PT/OT on board * fall precautions * repeat MRI brain negative. head CTA negative for vasculitis 2. Left costophrenic angle tenderness * urinalysis on admission showed no evidence of UTI * repeat urinalysis still showed no evidence of UTI * CT abdomen and pelvis showed no evidence of kidney stones. * lipase is only 45, and tropnins are negative * she does admit to a history of fibromyalgia, which can explain her symptoms * supportive mgmt 3. CAD s/p CABG: on aspirin, brilinta, metoprolol and losartan 4. Hypertension; on metoprolol and losartan 5. Hyperlipidemia: allergic to statin. 6. History of brain tumor: s/p craniotomy. Currently considered to be in remission. 7. Anxiety and depression: on citalopram 8. History of infra renal abdominal aortic aneurysm * follow up with vascular surgery on outpatient basis. * 9. Chronic back pain: on oxycodone and baclofen. PT.OT on board. 10. DVT prophylaxis: lovenox 11. insomnia: add trazodone. had been on lunesta in past, but stopped due to sleepiness from gabapentin. pt advised this dose may need adjusted upwards. advised against late caffeine consumption. She denies alcohol consumption. Code status: full code Medications at Discharge Home Medications furosemide 20 mg tablet (Lasix) 20 mg PO DAILY PRN PRN fluid 01/30/21 isosorbide mononitrate 60 mg tablet,extended release 24 hr 60 mg PO BID #180 tabs 02/01/21 losartan 100 mg tablet 100 mg PO DAILY BP #90 tabs 02/01/21 metoprolol succinate 25 mg tablet,extended release 24 hr 25 mg PO DAILY #90 tabs 02/01/21 nitroglycerin 0.4 mg sublingual tablet 0.4 mg sublingual PRN PRN Cardiac/Chest Pain ##25 02/01/21 ranolazine 1,000 mg tablet,extended release,12 hr 1,000 mg PO BID #180 tabs 02/01/21 baclofen 5 mg tablet 2.5 - 5 mg PO TID PRN Spasms 09/12/21 docusate sodium 100 mg capsule 200 mg PO QHS 09/12/21 gabapentin 100 mg capsule 200 mg PO BID nerve pain 09/12/21 hydroxyzine HCl 25 mg tablet 25 mg PO PRN PRN Itching 09/12/21 oxycodone-acetaminophen 7.5 mg-325 mg tablet 1 tab PO Q6H PRN Pain 09/12/21 pantoprazole 20 mg tablet,delayed release 20 mg PO DAILY 09/12/21 ondansetron 4 mg disintegrating tablet 4 mg PO Q8H PRN PRN Nausea #10 tabs 10/02/21 ticagrelor 90 mg tablet 90 mg PO BID blood thinner #180 tabs 12/09/21 citalopram 20 mg tablet 20 mg PO QHS 12/12/21 acetaminophen 500 mg capsule 1,000 mg PO Q8H PRN PRN pain #30 caps 12/16/21 levetiracetam 500 mg tablet 500 mg PO BID #60 tabs 12/16/21 trazodone 50 mg tablet 50 mg PO QHS #30 tabs 12/16/21 Hospital Course Operations None Procedures 2-D Echocardiogram Summary of Care Provided Minutes Spent on Discharge: 35 Weight / BMI Weight Weight: 84.2 kg Body Mass Index (BMI) 29.9 ABG / Lab / Microbiology Data Result Diagrams: 12/16/21 04:47 12/16/21 04:47 Laboratory: Laboratory Results - last 24 hr 12/15/21 17:24: Troponin I High Sens 9, C-React Prot Ext Range 104.00 H 12/15/21 20:25: Troponin I High Sens 8 12/15/21 20:25: ESR 60 H 12/16/21 04:47: WBC 8.5, RBC 3.66 L, Hgb 11.5 L, Hct 36.0 L, MCV 98.4, MCH 31.4, MCHC 31.9 L, RDW Std Deviation 50.5 H, RDW Coeff of Fredo 13.9, Plt Count 220, MPV 9.9, Immature Gran % (Auto) 0.400, Neut % (Auto) 67.5, Lymph % (Auto) 19.8, [place] % (Auto) 10.9 H, Eos % (Auto) 1.2, Baso % (Auto) 0.2, Absolute Neuts (auto) 5.7, Absolute Lymphs (auto) 1.68, Nucleated RBC % 0 12/16/21 04:47: Sodium 137, Potassium 3.7, Chloride 104, Carbon Dioxide 27.0, Anion Gap 6, BUN 13, Creatinine 0.83, Estim Creat Clear Calc 50.57, Est GFR (MDRD) Af Amer 87, Est GFR (MDRD) Non-Af 72, BUN/Creatinine Ratio 15.7, Glucose 94, Calcium 8.5 Radiography Diagnostic Testing: Radiology Impression Brain MRI 12/16/21 08:59 IMPRESSION: 1. No acute intracranial abnormality. 2. Stable chronic microvascular changes Electronically Signed: Jw Jung MD at 15:17 EDT , Head/Neck CTA 12/16/21 08:59 IMPRESSION: Less than 50% stenosis of the origin of the right internal carotid artery. Less than 70% stenosis of the origin of the left internal carotid artery. No evidence of vasculitis. Electronically Signed: Jw Jung MD at 11:51 EDT , D/C Instructions Discharge Diet: No restrictions Call your doctor if you observe: - (seizure. unresponsive epidosodes.) Meaningful Use Info Meaningful Use Diagnoses (Choose all that apply): None applicable Discharge Plan Admission Admit Date/Time: 12/12/21 19:13 Primary Reason for Your Visit: seizure Attending Provider: Ruddy Armas Primary Care Provider: Stacie Rivers NP Consulting Providers: Telma Hamlin ; Marylu Cisneros Discharge Orders/Prescriptions Prescriptions: New levetiracetam 500 mg Tablet 500 mg PO BID Qty: 60 0RF trazodone 50 mg Tablet 50 mg PO QHS Qty: 30 0RF acetaminophen 500 mg capsule 1,000 mg PO Q8H PRN PRN (Reason: pain) Qty: 30 0RF Continued furosemide [Lasix] 20 mg tablet 20 mg PO DAILY PRN PRN (Reason: fluid) pantoprazole 20 mg tablet,delayed release (DR/EC) 20 mg PO DAILY docusate sodium 100 mg Capsule 200 mg PO QHS hydroxyzine HCl 25 mg Tablet 25 mg PO PRN PRN (Reason: Itching) gabapentin 100 mg capsule 200 mg PO BID Label Comments: TAKE 2 CAPSULES BY MOUTH 3 TIMES A DAY oxycodone-acetaminophen 7.5-325 mg tablet 1 tab PO Q6H PRN (Reason: Pain) baclofen 5 mg tablet 2.5 - 5 mg PO TID PRN (Reason: Spasms) Label Comments: TAKE 1/2 TO 1 TABLET BY MOUTH THREE TIMES A DAY NEEDED FOR SPASMS ondansetron 4 MG tablet 4 mg PO Q8H PRN PRN (Reason: Nausea) Qty: 10 0RF citalopram 20 mg tablet 20 mg PO QHS isosorbide mononitrate 60 mg tablet extended release 24 hr 60 mg PO BID Qty: 180 3RF losartan 100 mg tablet 100 mg PO DAILY Qty: 90 3RF metoprolol succinate 25 mg tablet extended release 24 hr 25 mg PO DAILY Qty: 90 3RF nitroglycerin 0.4 mg tablet, sublingual 0.4 mg SL PRN PRN (Reason: Cardiac/Chest Pain) Qty: 25 4RF ranolazine 1,000 mg tablet extended release 12 hr 1,000 mg PO BID Qty: 180 3RF ticagrelor 90 mg tablet 90 mg PO BID Qty: 180 3RF Referrals / Follow Up: Patrick Vincent MD [NON-STAFF] - Within 1 Month (Neurology for seizure follow up.) Stacie Rivers NP, C[employer]ER [employer]IST[employer]ATE[employer] [Primary Care Provider] - Within 2 Weeks Disposition Disposition (needs filled in before D/C Order can be placed): Home, Self Care Charges/Coding Visit Charges Inpatient E&M: 80098 Disch Hosp OBSV E&M: 48516 Observation care discharge
== END 2021-12-16 16:38 | disposition home or self-care (01) ==
LOC: ED 19:30 → PCU 19:36
PROVIDERS: Student in an Organized Health Care Education/Training Program; Admitting Provider Family Medicine; Emergency Provider Emergency Medicine; PCP Nurse Practitioner Adult Health
DX: R55 Syncope and collapse (principal); I71.4 Abdominal aortic aneurysm, without rupture; R56.9 Unspecified convulsions; M79.603 Pain in arm, unspecified; I25.10 Atherosclerotic heart disease of native coronary artery without angina pectoris; K21.9 Gastro-esophageal reflux disease without esophagitis; G89.29 Other chronic pain; R00.1 Bradycardia, unspecified; Z79.02 Long term (current) use of antithrombotics/antiplatelets; R32 Unspecified urinary incontinence; Z87.891 Personal history of nicotine dependence; M79.7 Fibromyalgia; E78.5 Hyperlipidemia, unspecified; I10 Essential (primary) hypertension; F41.9 Anxiety disorder, unspecified; F32.A Depression, unspecified; Z79.899 Other long term (current) drug therapy; I25.2 Old myocardial infarction; E66.9 Obesity, unspecified; Z68.33 Body mass index [BMI] 33.0-33.9, adult; G47.00 Insomnia, unspecified
CPT/HCPCS: 36415; 70450; 70496; 70498; 70553; 71045; 74178; 80048; 80053; 80307; 81001; 83690; 83735; 84443; 84484; 85025; 85652; 86140; 93005; 93306; 95819; 96361; 96365; 96366; 96372; 96375; 96376; 97161; 97165; 99218; 99284; A9575; J7030; J7040; J7050; Q9957; Q9967; A4216; G0378

== ENCOUNTER → 2022-07-16 | Outpatient (CLI) | payer OTHER, SELFPAY ==
[2022-07-16 12:17] LABS: Anion Gap 5 (5-15); BUN 18 mg/dL (7-18); BUN/Creat Ratio 17.8 RATIO (10-20); Chloride 108 mmol/L (98-107); Cholesterol 234 mg/dL (200); Creatinine, Serum 1.01 mg/dL (0.55-1.02); EST Glomerular Filtration Rate 57 mL/min (>60); Est Glom Filt Rate - Afr Amer 68 mL/min (>60); Glucose 95 mg/dL (74-106); High Density Lipoprotein 52 mg/dL; Potassium 4.7 mmol/L (3.5-5.1); Sodium Level 140 mmol/L (136-145); Triglycerides 127 mg/dL; Very Low Density Lipoprotein 25 mg/dL (5-40)
== END | disposition home or self-care (01) ==
LOC: LAB 11:19
PROVIDERS: PCP Nurse Practitioner Adult Health; Visit Provider Internal Medicine Cardiovascular Disease
DX: I10 Essential (primary) hypertension (principal); E78.5 Hyperlipidemia, unspecified; I25.10 Atherosclerotic heart disease of native coronary artery without angina pectoris
CPT/HCPCS: 36415; 80048; 80061

== ENCOUNTER → 2022-07-22 | Outpatient (CLI) | payer OTHER, SELFPAY ==
--- NOTE | 2022-07-22 12:56 | CDU_ITS ---
Reason For Study: DIZZINESS Rt. Velocities/BP Lt. Velocities/BP Prox CCA 70.2/15.4 cm/sec. Prox CCA 72.0/15.5 cm/sec. Mid CCA 59.1/11.0 cm/sec. Mid CCA 65.8/14.2 cm/sec. Dist CCA 51.6/9.1 cm/sec. Dist CCA 56.0/11.8 cm/sec. Prox ICA 69.9/14.9 cm/sec. Prox ICA 55.4/10.0 cm/sec. Mid ICA 73.2/20.4 cm/sec. Mid ICA 67.6/16.6 cm/sec. Dist ICA 71.0/19.3 cm/sec. Dist ICA 79.9/26.1 cm/sec. Rt. ICA/CCA = 1.2. Lt. ICA/CCA = 1.2. Prox ECA 84.4/8.8 cm/sec. Prox ECA 99.0/6.9 cm/sec. Rt. Vert. 43.5/11.7 cm/sec. Lt. Vert. 32.7/8.1 cm/sec. Right Extracranial There is heterogeneous, irregular atherosclerotic plaque noted in the right common carotid artery. There is heterogeneous, irregular atherosclerotic plaque noted in the right internal carotid artery. The atherosclerotic plaque causes acoustic shadowing. There is heterogeneous, irregular atherosclerotic plaque noted in the right external carotid artery. Antegrade flow is noted in the right vertebral artery. Left Extracranial There is heterogeneous, smooth atherosclerotic plaque noted in the left common carotid artery. There is heterogeneous, irregular atherosclerotic plaque noted in the left internal carotid artery. There is heterogeneous, irregular atherosclerotic plaque noted in the left external carotid artery. Antegrade flow is noted in the left vertebral artery. Procedure Carotid Duplex [id number]. This is a Carotid Duplex examination using B-mode, color flow and specral Doppler. The exam was diagnostic. Exam performed in department. VL/Carotid Duplex Ultrasound Interpretation Summary Irregular calcific plaque with shadowing at the proximal right internal carotid artery with less than 50% stenosis Less than 50% stenosis right external carotid artery Irregular calcific plaque at the proximal left internal carotid artery with les s than 50% stenosis. Less than 50% stenosis left external carotid artery Patent and antegrade vertebral arteries bilaterally Ordering Physician: Leta Childs Performed By: Parviz Falk RVT
== END | disposition home or self-care (01) ==
LOC: CVS 12:55
PROVIDERS: PCP Nurse Practitioner Adult Health; Visit Provider Internal Medicine Cardiovascular Disease
DX: R42 Dizziness and giddiness (principal)
CPT/HCPCS: 93880

== ENCOUNTER → 2022-07-22 | Outpatient (CLI) | payer OTHER, SELFPAY ==
[2022-07-22 13:42] VITALS: BMI 31.7
[2022-07-22 15:35] LABS: Anion Gap 6 (5-15); BUN 25 mg/dL (7-18); BUN/Creat Ratio 25.1 RATIO (10-20); Calcium,Total 9.2 mg/dL (8.5-10.1); Chloride 103 mmol/L (98-107); EST Glomerular Filtration Rate 58 mL/min (>60); Est Glom Filt Rate - Afr Amer 70 mL/min (>60); Glucose 90 mg/dL (74-106); Potassium 4.1 mmol/L (3.5-5.1); Sodium Level 138 mmol/L (136-145)
== END | disposition home or self-care (01) ==
LOC: LAB 14:01
PROVIDERS: PCP Nurse Practitioner Adult Health; Visit Provider Internal Medicine Cardiovascular Disease
DX: I10 Essential (primary) hypertension (principal)
CPT/HCPCS: 36415; 80048

== ENCOUNTER → 2022-09-02 | Outpatient (CLI) | payer MEDICARE, SELFPAY ==
[2022-07-22 13:42] VITALS: BMI 31.7
--- NOTE | 2022-09-02 16:45 | MRI_ITS ---
EXAM: MR RIGHT UPPER EXTREMITY WITHOUT INTRAVENOUS CONTRAST, SHOULDER CLINICAL INDICATION: fall,pain- RIGHT shoulder TECHNIQUE: Multiplanar and multisequence MR images of the right shoulder without intravenous contrast. This report was created using Mobile [employer] report Livestream technology. COMPARISON: None. FINDINGS: TENDONS: SUPRASPINATUS: Moderate supraspinatus tendinosis. No supraspinatus tendon tear. INFRASPINATUS: Unremarkable. Intact. SUBSCAPULARIS: Moderate grade partial-thickness tearing involving the distal superior fibers of the subscapularis tendon, allowing mild medial subluxation of the long head of the biceps tendon. TERES MINOR: Unremarkable. Intact. BICEPS BRACHII, LONG HEAD: Low-grade partial-thickness tearing involving the long head of the biceps tendon at the level of the zaid. The extra-articular biceps tendon is in the bicipital groove. LIGAMENTS: GLENOHUMERAL: Unremarkable. Intact. MUSCLES: Unremarkable. No rotator cuff muscle atrophy. FLUID: Small amount of fluid in the subacromial/subdeltoid bursa is nonspecific) be seen with bursitis in the appropriate clinical setting. No joint effusion. CARTILAGE: Unremarkable. Articular cartilage intact. GLENOID LABRUM: Unremarkable. No definite labral tearing. BONES/JOINTS: Moderate to severe hypertrophic degenerative changes acromioclavicular joint with moderate mass effect on the underlying soft tissues. Moderate amount of glenohumeral joint fluid with septations and synovitis inferiorly. Type I acromion with flat undersurface. No subacromial enthesophyte. No other bone marrow signal alterations. OTHER SOFT TISSUES: Unremarkable. No rotator interval edema. MRI/Upper Ext Joint Only(Routine) IMPRESSION: 1. Moderate grade partial-thickness tearing involving the distal superior fibers of the subscapularis tendon, allowing mild medial subluxation of the long head of the biceps tendon. 2. Suspect low-grade partial-thickness tearing of the long head of the biceps tendon at the level of the zaid. 3. [id number] hypertrophic degenerative changes acromioclavicular joint with moderate mass effect on the underlying soft tissues. 4. Moderate glenohumeral joint effusion with synovitis and septations. Electronically Signed: Demond Sparks MD at 2:18 EDT ,
== END | disposition home or self-care (01) ==
LOC: MRI 15:37
PROVIDERS: PCP Nurse Practitioner Adult Health; Referring Provider Anesthesiology Pain Medicine; Visit Provider Anesthesiology Pain Medicine
DX: M19.011 Primary osteoarthritis, right shoulder (principal)
CPT/HCPCS: 73221

== ENCOUNTER → 2023-01-05 | Outpatient (CLI) | payer MEDICARE, SELFPAY ==
[2022-07-22 13:42] VITALS: BMI 31.7
--- NOTE | 2023-01-05 15:02 | RAD_ITS ---
EXAM: XR RIGHT HIP WITH PELVIS WHEN PERFORMED, 2 OR 3 VIEWS CLINICAL INDICATION: Trochanteric bursitis, right hip TECHNIQUE: Two or three views of the right hip with pelvis when performed. COMPARISON: No relevant prior studies available. FINDINGS: BONES/JOINTS: No acute abnormality. SOFT TISSUES: Normal. No soft tissue swelling or gas. RAD/HIP, UNI W/ Pelvis 2-3 Views IMPRESSION: No evidence of displaced pelvic or hip fracture. No soft tissue abnormality. Electronically Signed: Jw Jung MD at 16:50 EDT ,
== END | disposition home or self-care (01) ==
PROVIDERS: PCP Nurse Practitioner Adult Health; Referring Provider Nurse Practitioner Acute Care; Visit Provider Nurse Practitioner Acute Care
DX: M70.51 Other bursitis of knee, right knee (principal)
CPT/HCPCS: 73502

== ENCOUNTER 2023-06-11 08:22 | Observation (INO) | payer MEDICARE, SELFPAY ==
[2022-07-22 13:42] VITALS: BMI 31.7
[2023-06-11] VITALS (8 sets, daily range): BP systolic 126–159; BP diastolic 47–82; PULSE 55–62; RESP 12–19; TEMP 36.2–37; O2SAT 90–97; BMI 32.5; BMI 30.7
--- NOTE | 2023-06-11 08:41 | EX.ED.DYSGE1 ---
HPI History of Present Illness Chief Complaint: Dizziness Detail of Chief Complaint: Weakness and dizziness Informant: patient Narrative Narrative: Patient presents to the emergency department with general complaint of weakness and lightheadedness that started this morning. Patient presents via EMS from home. and daughter are with her. Patient states that her son had come into her room to ask if patient would massage his shoulders. Patient was in bed at the time and began massaging the shoulders. She then started feeling lightheaded and felt like she was going to pass out. took patient's blood pressure via a wrist monitor and it was 60/40. EMS was called. Patient denies recent illness otherwise. She has had similar episodes of lightheadedness and dizziness for over a year. Denies chest pain or shortness of breath. Denies fever or cough. She denies urinary symptoms. [facility] Medical History Accelerating angina Arthritis Atherosclerosis of coronary artery of [place] heart without angina pectoris Brain tumor Chronic low back pain Chronic narcotic use Depression Essential (primary) hypertension Fibromyalgia Former smoker GERD (gastroesophageal reflux disease) History of non-ST elevation myocardial infarction (NSTEMI) (05/01/19) HLD (hyperlipidemia) Leg cramps Myocardial infarct Neuropathy Obesity (BMI 30.0-34.9) Osteoarthritis Plantar fasciitis Stomach ulcer Tobacco dependence in remission Unstable angina Home Medications nitroglycerin 0.4 mg sublingual tablet 0.4 mg sublingual PRN PRN Cardiac/Chest Pain ##25 02/01/21 [Rx Last Taken 06/10/23] baclofen 5 mg tablet 2.5 - 5 mg PO TID PRN Spasms 09/12/21 [History Last Taken 05/19/23] docusate sodium 100 mg capsule 200 mg PO QHS 09/12/21 [History Last Taken 06/10/23] hydroxyzine HCl 25 mg tablet 25 mg PO PRN PRN Itching 09/12/21 [History Last Taken 06/10/23] oxycodone-acetaminophen 7.5 mg-325 mg tablet 1 tab PO Q6H PRN Pain 09/12/21 [History Last Taken 06/10/23] ondansetron 4 mg disintegrating tablet 4 mg PO Q8H PRN PRN Nausea #10 tabs 10/02/21 [Rx Last Taken 06/10/23] citalopram 20 mg tablet 20 mg PO QHS 12/12/21 [History Last Taken 06/10/23] acetaminophen 500 mg capsule 1,000 mg (2 x 500 mg) PO Q8H PRN PRN pain #30 caps 12/16/21 [Rx Last Taken 06/10/23] levetiracetam 500 mg tablet 500 mg PO BID #60 tabs 12/16/21 [Rx Last Taken 06/10/23] losartan 100 mg tablet 100 mg PO DAILY #90 tabs 08/11/22 [Rx Last Taken 06/10/23] metoprolol succinate 25 mg tablet,extended release 24 hr 25 mg PO DAILY #90 tabs 12/17/22 [Rx Last Taken 06/10/23] pantoprazole 20 mg tablet,delayed release 20 mg PO DAILY #90 TABLETS 12/17/22 [Rx Last Taken 06/10/23] gabapentin 100 mg capsule 200 mg PO BID nerve pain 01/27/23 [History Last Taken 06/10/23] nifedipine 30 mg tablet,extended release 30 mg PO DAILY #90 tabs 01/27/23 [Rx Last Taken 06/10/23] evolocumab 140 mg/mL subcutaneous pen injector (Naun Durbin) 140 mg subcut Q2W #6 mL 02/19/23 [Rx Last Taken 06/02/23] isosorbide mononitrate 60 mg tablet,extended release 24 hr 60 mg PO BID #180 tabs 03/23/23 [Rx Last Taken 06/10/23] ranolazine 1,000 mg tablet,extended release,12 hr 1,000 mg PO BID #180 tabs 03/23/23 [Rx Last Taken 06/10/23] clopidogrel 75 mg tablet See Rx Instructions .Route .COMPLEX #90 tabs 06/03/23 [Rx Last Taken 06/10/23] hydrochlorothiazide 25 mg tablet See Rx Instructions .Route .COMPLEX #90 tabs 06/03/23 [Rx Last Taken 06/10/23] Allergy/AdvReac Type Severity Reaction Status Date / Time isometheptene [From Midrin] Allergy shaking Verified 06/11/23 08:32 Sulfa (Sulfonamide Allergy throat Verified 06/11/23 08:32 Antibiotics) Swelling ezetimibe [From Zetia] AdvReac Severe Pain in Verified 06/11/23 08:32 joints Pdaygxr-OVT-MwG Reductase AdvReac Severe myalgias Verified 06/11/23 08:32 Inhibitor [Hpslcqe-Ecc-Onm Reductase Inhibitor] codeine AdvReac Nausea/Vom/ Verified 06/11/23 08:32 Diarrhea dichloralphenazone AdvReac shaking Verified 06/11/23 08:32 [From Midrin] fish oil AdvReac Other Verified 06/11/23 08:32 ibuprofen AdvReac stomachache Verified 06/11/23 08:32 s topiramate [From Topamax] AdvReac I felt Verified 06/11/23 08:32 crazy Family History Grandmother Hypertension Father CVA (cerebral vascular accident) Heart disease Mother Hypertension Cancer Brother Cancer Sister Hypertension Surgical History H/O coronary artery bypass surgery (2006) H/O laminectomy History of appendectomy History of bladder surgery History of cholecystectomy History of coronary artery stent placement (05/02/19) History of craniotomy History of fusion of cervical spine History of hysterectomy History of laparoscopic cholecystectomy History of left heart catheterization (08/02/20) Social History household members: spouse Smoking Status: Former smoker how long ago did patient quit smoking: Quit 15 years prior, prior 1-1.5 ppd since teen. alcohol intake: former substance use type: does not use caffeine: Yes Type: coffee Number of servings: 3 ROS ROS ED Review of Systems ROS Unobtainable: other Constitutional Constitutional ED: Reports lethargy; Denies chills, fever(s), sweats or weight loss Eyes Eyes: Denies blurry vision, change in vision or diplopia ENT ENT ED: Denies rhinorrhea or sore throat Cardiovascular Cardiovascular: Denies chest pain, orthopnea or racing heartbeat Respiratory/Chest Respiratory/Chest: Denies cough, dyspnea, dyspnea on exertion, orthopnea or sputum Gastrointestinal Gastrointestinal: Denies abdominal pain, diarrhea, nausea or vomiting Genitourinary Genitourinary ED: Denies dysuria, hematuria or urinary frequency Musculoskeletal Musculoskeletal: Denies arthralgias, back pain, myalgias or neck pain Integumentary Reports other; Denies abscess, Abrasions or rash Neurologic Neurologic: Reports weakness and other Details: Lightheadedness ; Denies headache(s) Psychiatric Psychiatric: Denies anxiety, depression or suicidal thoughts Endocrine Endocrinology: Denies polydipsia, polyphagia or polyuria Hematologic/Lymphatic Hematologic/Lymphatic: Denies easy bleeding, easy bruising or lymphadenopathy Allergic/Immunologic Allergic/Immunologic ED: Denies mouth swelling, tongue swelling or urticaria EXAM Physical Exam Const Vital Signs: 06/11/23 08:24 06/11/23 08:27 06/11/23 08:29 Temperature 97.6 F L 97.6 F L Temperature Source Temporal Temporal Pulse Rate 57 L 57 L Respiratory Rate 19 H 12 Respiratory Effort Normal Non-Labored Respiratory Pattern Normal Blood Pressure 159/82 H 159/82 H Blood Pressure Mean 107 107 Pulse Ox 95 95 Oxygen Delivery Method Room Air Room Air 06/11/23 10:29 Temperature 97.2 F L Temperature Source Temporal Pulse Rate 59 L Respiratory Rate 16 Respiratory Effort Respiratory Pattern Blood Pressure 126/47 H Blood Pressure Mean 73 Pulse Ox 96 Oxygen Delivery Method Room Air Positive well nourished and well developed General Appearance ED: well developed and NAD HEENT Reports TM's clear and moist mucous membranes normocephalic and atraumatic; Negative for trauma or tenderness Tympanic Membrane ED: Yes TM's clear Eyes PERRL and EOMs intact bilaterally General Eye ED: Negative for pale conjunctiva or scleral icterus Neck no lymphadenopathy, supple and no JVD General: Negative for tenderness Chest Wall inspection of chest normal and palpation of chest normal Chest: Negative for tenderness Resp normal respiratory effort and clear to auscultation bilaterally Effort and Inspection: Negative for respiratory distress or pain with movement Auscultation: Negative for rhonchi, wheezes or diminished lung sounds Cardio regular rate, regular rhythm, S1 normal heart sound, S2 normal heart sound and no murmurs Peripheral Pulses: pulses 2+ throughout GI normal to inspection, nondistended, normoactive bowel sounds, soft to palpation, non-tender, non-distended and no masses Back/Spine no CVA tenderness and no thoracic nor lumbar tenderness Extremity normal to inspection General Extremety ED: Negative for edema General Extremity: Negative for edema Neuro oriented x3, CN's II-XII intact bilaterally, no sensory deficits noted and gait normal Neuro Narrative: No focal neurologic deficits. Sensorium / Orientation: awake, alert, oriented to person, oriented to place and oriented to time Motor Exam: strength 5/5 throughout and strength abnormal Psych mental status grossly normal Skin no rashes or lesions noted and no wounds MDM MDM MDM Narrative Medical decision making narrative: Patient presents with generalized weakness and dizziness. Her blood pressure at home per was 60s over 40s. On arrival her vital signs stable. Still just generally feels weak and has no energy. IV line established. CBC with differential obtained for white count of 8.3 with hemoglobin 12.7 and platelet count of 193. Chemistries unremarkable. BUN 23 and creatinine 1.14. Troponin normal at 12. Urinalysis normal. I ordered orthostatic vitals however patient unable to stand as she is too weak. Patient concerned about going home in this condition as she does not think that she can function. Will discuss with hospitalist to evaluate patient for admission. I also did perform COVID and flu testing as well as RSV testing and all were negative. Lab Data Attestation: I reviewed the patient's lab results. Labs: Laboratory Results - last 24 hr 06/11/23 06/11/23 08:40 10:24 WBC 8.3 RBC 3.81 L Hgb 12.7 Hct 37.7 MCV 99.0 MCH 33.3 H MCHC 33.7 RDW Std Deviation 47.1 H RDW Coeff of Fredo 13.0 Plt Count 193 MPV 9.7 Immature Gran % (Auto) 0.500 Neut % (Auto) 70.7 H Lymph % (Auto) 19.4 [place] % (Auto) 7.2 Eos % (Auto) 1.7 Baso % (Auto) 0.5 Absolute Neuts (auto) 5.9 Absolute Lymphs (auto) 1.62 Nucleated RBC % 0 Sodium 138 Potassium 4.3 Chloride 110 H Carbon Dioxide 27.0 Anion Gap 1 L BUN 23 H Creatinine 1.14 H Estim Creat Clear Calc 45.43 Est GFR (MDRD) Af Amer 59 L Est GFR (MDRD) Non-Af 49 L BUN/Creatinine Ratio 20.2 H Glucose 119 H Calcium 8.7 Troponin I High Sens 12 Urine Color Yellow Urine Clarity Clear Urine pH 6.0 Ur Specific [place] 1.020 Urine Protein 15 H Urine Glucose (UA) Normal Urine Ketones Negative Urine Occult Blood Negative Urine Nitrite Negative Urine Bilirubin Negative Urine Urobilinogen Normal Ur Leukocyte Esterase 25 H Urine RBC 0 SEEN Urine WBC 0-5 SEEN Ur Squamous Epith Cells 0-5 SEEN Urine Bacteria 0 SEEN Urine Mucus 0 SEEN EKG Initial EKG: Attestation: I personally reviewed and interpreted this EKG as follows: Comments: Sinus rhythm with rate of 56 bpm with no acute ST segment changes Prior EKG tracings: available for review Prior: Unchanged Discharge Plan Dx/Rx/DC Orders Clinical Impression: Dizziness, Weakness, History of hypertension Disposition Disposition: Acute Care Hospital [facility] Discharge Date/Time: 06/11/23 13:14
[2023-06-11] MEDS: 0.9% Normal Saline (1000mL) 1,000 ML 1000 ML IV (08:51)
[2023-06-11] MEDS: Ondansetron 4 MG/2 ML Vial IV (08:51)
[2023-06-11 08:53] LABS: Absolute Lymphocyte Count 1.62 X10^3/uL (0.83-4.51); Absolute Neutrophil Count 5.9 X10^3/uL (2.0-7.7); Basophil# 0.04 X10^3/uL; Basophil% 0.5 % (0-1); Eosinophil# 0.14 X10^3/uL; Eosinophils% 1.7 % (0-5); Hematocrit 37.7 % (37-47); Hemoglobin 12.7 g/dL (12.0-15.0); Lymphocyte # 1.62 X10^3/ul (0.83-4.51); Lymphocyte % 19.4 % (19-41); Mean Corp Hgb Conc 33.7 g/dL (32-36); Mean Corpuscular Hgb 33.3 pg (27.0-32.0); Mean Platelet Vol. 9.7 fl (6.2-12.0); Monocyte% 7.2 % (0-10); NRBC Flagged by Analyzer 0 % (0-5); Neutrophil # 5.89 X10^3/uL (2.7-7.7); Neutrophil % 70.7 % (47-70); Platelet Count 193 K/mm3 (150-450); RBC Distribution Width SD 47.1 fl (35.1-43.9); Red Blood Count 3.81 M/mm3 (4.2-5.4); White Blood Count 8.3 K/mm3 (4.4-11.0)
[2023-06-11 09:14] LABS: Anion Gap 1 (5-15); BUN 23 mg/dL (7-18); BUN/Creat Ratio 20.2 RATIO (10-20); Calcium,Total 8.7 mg/dL (8.5-10.1); Chloride 110 mmol/L (98-107); Creatinine, Serum 1.14 mg/dL (0.55-1.02); EST Glomerular Filtration Rate 49 mL/min (>60); Est Glom Filt Rate - Afr Amer 59 mL/min (>60); Estimated Creatinine Clearance 45.43 ml/min; Glucose 119 mg/dL (74-106); Potassium 4.3 mmol/L (3.5-5.1); Sodium Level 138 mmol/L (136-145); Troponin-I HS 12 pg/mL (3.0-54.0)
[2023-06-11 10:31] LABS: Bacteria 0 SEEN /hpf (None Seen); Mucous, Urine 0 SEEN /hpf (<or=2+); Red Blood Cells-Urine 0 SEEN /hpf (0-5)
[2023-06-11 10:34] LABS: Color, Urine Yellow (Yellow); Glucose, Dipstick Normal (Normal); Ketone-Dipstick Negative (Negative); Leukocyte Esterase-Dipstick 25 /ul (Negative); Nitrite-Dipstick Negative (Negative); Occult Blood-Urine Negative /ul (Negative); Protein-Dipstick 15 mg/dl (Negative); Urine Bilirubin Dipstick Negative (Negative); Urine Clarity Clear (Clear); Urine Urobilinogen Normal (Normal)
[2023-06-11 10:43] LABS: Squamous Epithelial Cells - UA 0-5 SEEN /hpf (5-10); White Blood Cells 0-5 SEEN /hpf (0-5)
--- NOTE | 2023-06-11 11:09 | PCM.HP.STD ---
HPI - General General Date of Admission: 06/11/23 Date of Service: 06/11/23 Chief Complaint: weakness and dizziness HPI Narrative SOFIA KULKARNI, is a 78 F with a PMH as outlined who presents via the ED on 06/11/2023 with a complaint of weakness and dizziness as well as lightheadedness. Symptoms started on the morning of admission. She said her son came in to ask her for a massage of his back. WHilst doing this, she felt dizzy and lighteheaded; she says her checked her BP and it was running low, with BP in the 60s/40s./ She felt like she was going to pass out and felt very weak. She had had such episodes of dizziness and lightheadedness over the year. She denied any chest pain, palpitations, dizziness, nausea, vomiting or any other symptoms. Review of systems is otherwise negative. Vitals in the ED were BP of 126/47, DE of 59. RR of 16 and temp of 97.2F. She was saturating at 96% on room air. CBC was unremarkable and BMP showed Cr of 1.14 but was otherwise unremarkable. Urinalysis showed no evidence of UTI. Patient said she was even too weak to even do an orthostatic check. She is therefore being admitted to be managed for debility and weakness due to dizziness. [facility] Medical History Accelerating angina Arthritis Atherosclerosis of coronary artery of circle heart without angina pectoris Brain tumor Chronic low back pain Chronic narcotic use Depression Essential (primary) hypertension Fibromyalgia Former smoker GERD (gastroesophageal reflux disease) History of non-ST elevation myocardial infarction (NSTEMI) (05/01/19) HLD (hyperlipidemia) Leg cramps Myocardial infarct Neuropathy Obesity (BMI 30.0-34.9) Osteoarthritis Plantar fasciitis Stomach ulcer Tobacco dependence in remission Unstable angina Home Medications nitroglycerin 0.4 mg sublingual tablet 0.4 mg sublingual PRN PRN Cardiac/Chest Pain ##25 02/01/21 [Rx Last Taken 06/10/23] baclofen 5 mg tablet 2.5 - 5 mg PO TID PRN Spasms 09/12/21 [History Last Taken 05/19/23] docusate sodium 100 mg capsule 200 mg PO QHS 09/12/21 [History Last Taken 06/10/23] hydroxyzine HCl 25 mg tablet 25 mg PO PRN PRN Itching 09/12/21 [History Last Taken 06/10/23] oxycodone-acetaminophen 7.5 mg-325 mg tablet 1 tab PO Q6H PRN Pain 09/12/21 [History Last Taken 06/10/23] ondansetron 4 mg disintegrating tablet 4 mg PO Q8H PRN PRN Nausea #10 tabs 10/02/21 [Rx Last Taken 06/10/23] citalopram 20 mg tablet 20 mg PO QHS 12/12/21 [History Last Taken 06/10/23] acetaminophen 500 mg capsule 1,000 mg (2 x 500 mg) PO Q8H PRN PRN pain #30 caps 12/16/21 [Rx Last Taken 06/10/23] levetiracetam 500 mg tablet 500 mg PO BID #60 tabs 12/16/21 [Rx Last Taken 06/10/23] losartan 100 mg tablet 100 mg PO DAILY #90 tabs 08/11/22 [Rx Last Taken 06/10/23] metoprolol succinate 25 mg tablet,extended release 24 hr 25 mg PO DAILY #90 tabs 12/17/22 [Rx Last Taken 06/10/23] pantoprazole 20 mg tablet,delayed release 20 mg PO DAILY #90 TABLETS 12/17/22 [Rx Last Taken 06/10/23] gabapentin 100 mg capsule 200 mg PO BID nerve pain 01/27/23 [History Last Taken 06/10/23] nifedipine 30 mg tablet,extended release 30 mg PO DAILY #90 tabs 01/27/23 [Rx Last Taken 06/10/23] evolocumab 140 mg/mL subcutaneous pen injector (Naun Durbin) 140 mg subcut Q2W #6 mL 02/19/23 [Rx Last Taken 06/02/23] isosorbide mononitrate 60 mg tablet,extended release 24 hr 60 mg PO BID #180 tabs 03/23/23 [Rx Last Taken 06/10/23] ranolazine 1,000 mg tablet,extended release,12 hr 1,000 mg PO BID #180 tabs 03/23/23 [Rx Last Taken 06/10/23] clopidogrel 75 mg tablet See Rx Instructions .Route .COMPLEX #90 tabs 06/03/23 [Rx Last Taken 06/10/23] hydrochlorothiazide 25 mg tablet See Rx Instructions .Route .COMPLEX #90 tabs 06/03/23 [Rx Last Taken 06/10/23] Allergy/AdvReac Type Severity Reaction Status Date / Time isometheptene [From Midrin] Allergy shaking Verified 06/11/23 08:32 Sulfa (Sulfonamide Allergy throat Verified 06/11/23 08:32 Antibiotics) Swelling ezetimibe [From Zetia] AdvReac Severe Pain in Verified 06/11/23 08:32 joints Shagevg-ENC-DxM Reductase AdvReac Severe myalgias Verified 06/11/23 08:32 Inhibitor [Uyysjjf-Xet-Hmc Reductase Inhibitor] codeine AdvReac Nausea/Vom/ Verified 06/11/23 08:32 Diarrhea dichloralphenazone AdvReac shaking Verified 06/11/23 08:32 [From Midrin] fish oil AdvReac Other Verified 06/11/23 08:32 ibuprofen AdvReac stomachache Verified 06/11/23 08:32 s topiramate [From Topamax] AdvReac I felt Verified 06/11/23 08:32 crazy Family History Grandmother Hypertension Father CVA (cerebral vascular accident) Heart disease Mother Hypertension Cancer Brother Cancer Sister Hypertension Surgical History H/O coronary artery bypass surgery (2006) H/O laminectomy History of appendectomy History of bladder surgery History of cholecystectomy History of coronary artery stent placement (05/02/19) History of craniotomy History of fusion of cervical spine History of hysterectomy History of laparoscopic cholecystectomy History of left heart catheterization (08/02/20) Social History household members: spouse Smoking Status: Former smoker how long ago did patient quit smoking: Quit 15 years prior, prior 1-1.5 ppd since teen. alcohol intake: former substance use type: does not use caffeine: Yes Type: coffee Number of servings: 3 ROS Review of Systems ROS Unobtainable: Denies due to encephalopathy Constitutional Constitutional: Reports fatigue, malaise and weakness; Denies anorexia, chills or fever(s) Eyes Eyes: Denies change in vision ENT HEENT: Denies dysphagia or headache(s) Cardiovascular Cardiovascular: Denies chest pain, edema, orthopnea, palpitations, paroxysmal nocturnal dyspnea or syncope Respiratory/Chest Respiratory/Chest: Denies cough, shortness of breath at rest, shortness of breath with exertion or wheezing Gastrointestinal Gastrointestinal: Denies abdominal pain, diarrhea, nausea or vomiting Genitourinary Genitourinary: Denies nocturia Musculoskeletal Musculoskeletal: Denies back pain, joint pain, joint stiffness, joint swelling or muscle weakness Neurologic Neurologic: Reports dizziness; Denies confusion, focal weakness, headache(s), lack of coordination, numbness, seizures, sensory deficit, tingling or weakness Psychiatric Psychiatric: Denies anxiety Vital Signs Vital Signs Vital Signs: 06/11/23 08:24 06/11/23 08:27 06/11/23 08:29 Temperature 97.6 F L 97.6 F L Temperature Source Temporal Temporal Pulse Rate 57 L 57 L Respiratory Rate 19 H 12 Respiratory Effort Normal Non-Labored Respiratory Pattern Normal Blood Pressure 159/82 H 159/82 H Blood Pressure Mean 107 107 Pulse Ox 95 95 Oxygen Delivery Method Room Air Room Air 06/11/23 10:29 Temperature 97.2 F L Temperature Source Temporal Pulse Rate 59 L Respiratory Rate 16 Respiratory Effort Respiratory Pattern Blood Pressure 126/47 H Blood Pressure Mean 73 Pulse Ox 96 Oxygen Delivery Method Room Air Weight Weight: 195 lb 5.273 oz Body Mass Index (BMI) 32.5 Physical Exam Const alert, oriented x3 and no apparent distress Constitutional Narrative: frail General Appearance: cooperative and well developed HEENT normocephalic, head/scalp atraumatic, moist oral mucous membranes and oropharynx normal Eyes PERRL and EOMs intact bilaterally Neck no lymphadenopathy and supple Lymph Lymphatic: no lymphadenopathy noted and no lymphedema noted Resp normal respiratory effort, normal air movement and clear to auscultation bilaterally Cardio regular rate, regular rhythm, S1 normal heart sound, S2 normal heart sound and no murmurs GI normal to inspection, nondistended, normoactive bowel sounds, soft to palpation, non-tender and non-distended Extremity normal capillary refill, no clubbing, cyanosis or edema and no calf tenderness General Extremity: no tenderness to palpation of joints or extremities Skin General Skin Exam: no breakdown Neuro CN's II-XII intact bilaterally, no focal motor deficits, no sensory deficits noted and deep tendon reflexes 2+ bilaterally Motor Exam: strength 5/5 throughout and general weakness Psych thought process normal, cooperative and affect normal Appearance: appropriate Results Lab / Micro Data 06/11/23 08:40 06/11/23 08:40 Labs: Laboratory Results - last 24 hr 06/11/23 08:40: WBC 8.3, RBC 3.81 L, Hgb 12.7, Hct 37.7, MCV 99.0, MCH 33.3 H, MCHC 33.7, RDW Std Deviation 47.1 H, RDW Coeff of Fredo 13.0, Plt Count 193, MPV 9.7, Immature Gran % (Auto) 0.500, Neut % (Auto) 70.7 H, Lymph % (Auto) 19.4, [place] % (Auto) 7.2, Eos % (Auto) 1.7, Baso % (Auto) 0.5, Absolute Neuts (auto) 5.9, Absolute Lymphs (auto) 1.62, Nucleated RBC % 0, Sodium 138, Potassium 4.3, Chloride 110 H, Carbon Dioxide 27.0, Anion Gap 1 L, BUN 23 H, Creatinine 1.14 H, Estim Creat Clear Calc 45.43, Est GFR (MDRD) Af Amer 59 L, Est GFR (MDRD) Non-Af 49 L, BUN/Creatinine Ratio 20.2 H, Glucose 119 H, Calcium 8.7, Troponin I High Sens 12 06/11/23 10:24: Urine Color Yellow, Urine Clarity Clear, Urine pH 6.0, Ur Specific [place] 1.020, Urine Protein 15 H, Urine Glucose (UA) Normal, Urine Ketones Negative, Urine Occult Blood Negative, Urine Nitrite Negative, Urine Bilirubin Negative, Urine Urobilinogen Normal, Ur Leukocyte Esterase 25 H, Urine RBC 0 SEEN, Urine WBC 0-5 SEEN, Ur Squamous Epith Cells 0-5 SEEN, Urine Bacteria 0 SEEN, Urine Mucus 0 SEEN Micro: Microbiology 06/11/23 08:47 Mucosa - Nose SARS-CoV-2, Influenza & RSV (PCR) - Final Assessment & Plan Assessment/Plan (1) Weakness: (2) Dizziness: PLAN: Plan #Debility and weakness due to probable orthostasis Admit to PCU under observation. Patient says she was sitting up giving her some muscles when she felt dizzy and lightheaded and very weak. She was unable to get up and felt very frail so she was brought into the ED. She felt too weak to even sit up for orthostatics to be checked. Vitals were stable and CBC and BMP were also unremarkable. Hydrate gently with IV fluids. Check orthostatics. PT OT consult. Fall precautions. #History of CAD s/p stents and CABG: On aspirin and high intensity statin. Also on Imdur #Hyperlipidemia: On statin and evolocumab #History of meningioma: Stable. #Depression: On citalopram #Hypertension: On losartan and metoprolol as well as nifedipine. IV hydralazine as needed. #History of seizures: On Keppra DVT prophylaxis Lovenox CODE STATUS: Full code Patient counseled extensively about different types of CODE STATUS including full code, DNR CCA and DNR CCA. Patient elects to be full code. Total tbym-or-laqs time 16 minutes. Charges/Coding Visit Charges Inpatient E&M: 39159 Init Hosp L2
[2023-06-11] MEDS: 0.9% Normal Saline (1000mL) 1,000 ML 150 ML IV (11:28)
--- NOTE | 2023-06-11 12:13 | ED.RN ---
pt refused to get up so orthostatics could be done. pt doesn't feel,well enough to move around per pt
--- OUTSIDE RECORDS SUMMARY | 2023-06-11 12:27 | XMS RPT_ITS | CCD ---
Author Name Unknown Address [address] [place] [address] Organization [facility] Care Team Providers Care Radon Inspector Name Role Phone Tita SUPERVISOR PAINT DEPARTMENT.Cristina JENKINS Primary Care Provider Tita SUPERVISOR PAINT DEPARTMENT.Cristina JENKINS Unavailable CRISTINA OLEA Primary Care Unavailable ZE PARRISH Attending Unavailab CRISTINA Lopez Primary Care Unavailable SIMON SOLARES Referring Nolberto Olea SUPERVISOR PAINT DEPARTMENT.Crisitna JENKINS Primary Care Provider Tita SUPERVISOR PAINT DEPARTMENT.Cristina JENKINS Unavailable SIMON SOLARES Attending CRISTINA Gay Primary Care Unavailable CRISTINA OLEA Attending Unavailable CRISTINA OLEA Primary Care Unavailable Allergies Allergy Classification Reported Allergen(s) Allergy Type Date of Onset Reaction(s) Facility (20 sources) Acetaminophen / dichloralphenazone / isometheptene; Translations: [[id number]-JC ETAMINOPHN] Drug Allergy 05-01-20 06 Intolerance [facility] Work Phone: (20 sources) amLODIPine; Translations: [AMLODIPINE] Drug Allergy 06-20-19 Unknown [facility] (11 sources) Angiotensin-convertin g enzyme inhibitor agent; Translations: [JUSTO INHIBITORS] Propensity to adverse reactions to drug 06-20-19 Unknown [facility] (20 sources) Atenolol; Translations: [ATENOLOL] Drug Allergy 06-20-19 Unknown [facility] (20 sources) atorvastatin; Translations: [ATORVASTATIN] Drug Allergy 06-20-19 Unknown [facility] (20 sources) Codeine; Translations: [CODEINE] Drug Allergy 01-09-20 05 GI Upset [facility] Work Phone: (20 sources) ezetimibe; Translations: [EZETIMIBE] Drug Allergy 06-20-19 17 Unknown [facility] (20 sources) Ibuprofen; Translations: [IBUPROFEN] Drug Allergy 03-05-20 09 GI Upset [facility] Work Phone: (20 sources) Lisinopril; Translations: [LISINOPRIL] Drug Allergy 06-20-19 17 Anaphylaxis [facility] (20 sources) pitavastatin; Translations: [PITAVASTATIN] Drug Allergy 06-20-19 17 Unknown [facility] (20 sources) Pravastatin; Translations: [PRAVASTATIN] Drug Allergy 06-20-19 17 Unknown [facility] (20 sources) ranolazine; Translations: [RANOLAZINE] Drug Allergy 06-20-19 17 Unknown [facility] (20 sources) rosuvastatin; Translations: [ROSUVASTATIN CALCIUM] Drug Allergy 06-20-19 17 Unknown [facility] (20 sources) Simvastatin; Translations: [SIMVASTATIN] Drug Allergy 06-20-19 17 Unknown [facility] (20 sources) Spironolactone; Translations: [SPIRONOLACTONE] Drug Allergy 06-20-19 17 Unknown [facility] (20 sources) Sulfonamides (Antibiotic); Translations: [SULFA (SULFONAMIDE ANTIBIOTICS)] Propensity to adverse reactions 01-09-20 05 [facility] Work Phone: (20 sources) topiramate; Translations: [TOPIRAMATE] Drug Allergy 08-20-19 17 Other: See Comments [facility] (14 sources) Angiotensin-convertin g enzyme inhibitor agent Propensity to adverse reactions to drug 06-20-19 17 [facility] Medications Current Medications Medication Drug Class(es) Dates Sig (Normalized) Sig (Original) amoxicillin 875 mg / clavulanate 125 mg oral tablet (1 source) Penicillin-class Antibacterial Start: 09-20-2021 End: 09-30-2021 take 1 tablet by mouth every twelve hours amoxicillin-clav ulanic acid (AUGMENTIN) 875-125 mg per tablet Take 1 tablet by mouth every 12 hours for 10 days. 20 tablet 0 09/20/2021 09/30/2021 Active Completed/Discontinued Medications Medication Drug Class(es) Dates Sig (Normalized) Sig (Original) acetaminophen 325 mg / oxyCODONE hydrochloride 7.5 mg oral tablet (20 sources) Opioid Agonist Start: 08-26-2016 oxyCODONE-acetami nophen (PERCOCET) 7.5-325 mg tablet [id number] 200 actuat albuterol 0.09 mg/actuat metered dose inhaler (20 sources) beta2-Adrenergic Agonist Start: 08-20-2020 take 2 puff(s) by inhalation every four hours as needed albuterol HFA (PROAIR HFA) 90 mcg/actuation inhaler Indications: Wheezing , Bronchitis Inhale 2 Puffs as instructed every 4 hours as needed. 18 g 3 08/20/2020 Active Problems Active Problems Problem Classification Problem Date Documented Da te Episodic/Chronic Abdominal pain (1 source) Flank pain; Translations: [Unspecified abdominal pain] Episodic Complications of surgical procedures or medical care (20 sources) Prolapse of vaginal vault after hysterectomy; Translations: [Prolapse of vaginal vault after hysterectomy] Onset: 7 07-18-2016 Chronic Coronary atherosclerosis and other heart disease (2 sources) Coronary atherosclerosis; Translations: [Atherosclerotic heart disease of [place] coronary artery with other forms of angina pectoris] Onset: 4 Chronic E Codes: Fall (1 source) Fall; Translations: [Unspecified fall, subsequent encounter] Episodic Epilepsy; convulsions (12 sources) Localization-related epilepsy; Translations: [Localization-related (focal) (partial) symptomatic epilepsy and epileptic syndromes with simple partial seizures, not intractable, without status epilepticus] Onset: 2 Chronic Epilepsy; convulsions (2 sources) Seizure; Translations: [Unspecified convulsions] Onset: 4 Episodic Esophageal disorders (20 sources) Gastroesophageal reflux disease; Translations: [Gastro-esophageal reflux disease without esophagitis] Onset: 8 02-01-2008 Chronic Essential hypertension (20 sources) Essential hypertension; Translations: [Essential (primary) hypertension] Onset: 5 06-03-2017 Chronic Genitourinary symptoms and ill-defined conditions (20 sources) Incontinence; Translations: [Mixed incontinence] Onset: 7 07-18-2016 Chronic Genitourinary symptoms and ill-defined conditions (20 sources) Finding of sensation of bladder; Translations: [Feeling of incomplete bladder emptying] Onset: 7 07-18-2016 Episodic Menopausal disorders (20 sources) Atrophic vaginitis; Translations: [Postmenopausal atrophic vaginitis] Onset: 9 11-06-2008 Chronic Mood disorders (20 sources) Major depressive disorder; Translations: [Major depressive disorder, single episode, unspecified] Onset: 5 06-03-2017 Chronic Mycoses (1 source) Candidiasis; Translations: [Other sites of candidiasis] Episodic Nutritional deficiencies (2 sources) Vitamin D deficiency; Translations: [Vitamin D deficiency, unspecified] Onset: 4 Chronic Open wounds of head; neck; and trunk (1 source) Facial laceration ; Translations: [Laceration without foreign body of other part of head, subsequent encounter] Episodic Osteoarthritis (20 sources) Arthritis; Translations: [Unspecified osteoarthritis, unspecified site] 12-14-2015 Chronic Other bone disease and musculoskeletal deformities (1 source) Osteopenia; Translations: [Other specified disorders of bone density and structure, multiple sites] Episodic Other connective tissue disease (20 sources) Fibromyalgia; Translations: [Fibromyalgia] 12-14-2015 Episodic Other diseases of bladder and urethra (20 sources) Disorder of bladder; Translations: [Other specified disorders of bladder] Onset: 9 11-06-2008 Chronic Other female genital disorders (1 source) Pruritus of vagina; Translations: [Other specified noninflammatory disorders of vagina] Episodic Other female genital disorders (1 source) Other specified noninflammatory disorders of vagina; Translations: [Vaginal itching] Onset: 4 Episodic Other gastrointestinal disorders (20 sources) Irritable bowel syndrome; Translations: [Irritable bowel syndrome without diarrhea] Onset: 6 07-04-2005 Chronic Other lower respiratory disease (1 source) Chest pain on breathing; Translations: [Chest pain on breathing] Episodic Other lower respiratory disease (1 source) Cough; Translations: [Cough] Episodic Other nervous system disorders (1 source) Neuropathy; Translations: [Polyneuropathy, unspecified] 12-11-2022 Chronic Other nervous system disorders (1 source) Polyneuropathy, unspecified; Translations: [Neuropathy] Onset: 3 Chronic Other screening for suspected conditions (not mental disorders or infectious disease) (6 sources) Patient encounter status; Translations: [Encounter for screening mammogram for malignant neoplasm of breast] Onset: 4 Episodic Other skin disorders (20 sources) Lichen sclerosus et atrophicus; Translations: [Circumscribed scleroderma] Onset: 7 07-18-2016 Chronic Pneumonia (except that caused by tuberculosis or sexually transmitted disease) (1 source) Infective pneumonia; Translations: [Pneumonia, unspecified organism] Episodic Prolapse of female genital organs (20 sources) Midline cystocele; Translations: [Cystocele, midline] Onset: 9 11-06-2008 Chronic Residual codes; unclassified (1 source) Postmenopausal state; Translations: [Asymptomatic menopausal state] Episodic Spondylosis; intervertebral disc disorders; other back problems (20 sources) Intervertebral disc disorder; Translations: [Unspecified thoracic, thoracolumbar and lumbosacral intervertebral disc disorder] Onset: 5 04-25-2005 Chronic Syncope (1 source) Syncope; Translations: [Syncope and collapse] Episodic Past or Other Problems Problem Classification Problem Date Documented Da te Episodic/Chronic Headache; including migraine (20 sources) Headache; Translations: [Headache] Onset: 05-01-2006 05-01-2006 Episodic Other connective tissue disease (20 sources) Myalgia of pelvic floor; Translations: [Myalgia, other site] Onset: 07-18-2016 07-18-2016 Episodic Other connective tissue disease (20 sources) Muscular hypertonicity; Translations: [Other specified disorders of muscle] Onset: 07-18-2016 07-18-2016 Episodic Other connective tissue disease (1 source) Fibromyalgia; Translations: [Fibromyalgia] Onset: 12-14-2015 Episodic Other female genital disorders (20 sources) Female genital organ symptoms; Translations: [Unspecified condition associated with female genital organs and menstrual cycle] Onset: 11-06-2008 11-06-2008 Episodic Other non-traumatic joint disorders (20 sources) Pain in lower limb; Translations: [Pain in unspecified knee] Onset: 01-05-2008 01-05-2008 Episodic Spondylosis; intervertebral disc disorders; other back problems (20 sources) Neck pain; Translations: [Cervicalgia] Onset: 05-05-2006 05-05-2006 Episodic Results Test Name Value Interpretation Reference Range Facil ity Vital Signs Date Time Vital Sign Value Performing Clinician Antonella valdivia 12-11-2022 10:21-0400 Body height 162.6 cm Simon Solares MD Work Phone: [facility] 12-11-2022 10:21-0400 Body weight 78.02 kg Simon Solares MD Work Phone: [facility] 12-11-2022 10:21-0400 Diastolic blood pressure 77 mm[Hg] Simon Solares MD Work Phone: [facility] 12-11-2022 10:21-0400 Heart rate 62 /min Simon Solares MD Work Phone: [facility] 12-11-2022 10:21-0400 Respiratory rate 18 /min Simon Solares MD Work Phone: [facility] 12-11-2022 10:21-0400 Systolic blood pressure 134 mm[Hg] Simon Solares MD Work Phone: [facility] 02-05-2022 07:57-0400 Body height 165.1 cm Simon Solares MD Work Phone: [facility] 02-05-2022 07:57-0400 Body weight 78.02 kg Simon Solares MD Work Phone: [facility] 02-05-2022 07:57-0400 Diastolic blood pressure 83 mm[Hg] Simon Solares MD Work Phone: [facility] 02-05-2022 07:57-0400 Heart rate 65 /min Simon Solares MD Work Phone: [facility] 02-05-2022 07:57-0400 Respiratory rate 18 /min Simon Solares MD Work Phone: [facility] 02-05-2022 07:57-0400 Systolic blood pressure 179 mm[Hg] Simon Solares MD Work Phone: [facility] 01-30-2022 11:40-0400 Diastolic blood pressure 68 mm[Hg] Cristina Tita SUPERVISOR PAINT DEPARTMENT.VENEER DRIER TAILER Work Phone: [facility] 01-30-2022 11:40-0400 Systolic blood pressure 142 mm[Hg] Cristina Tita SUPERVISOR PAINT DEPARTMENT.VENEER DRIER TAILER Work Phone: [facility] 01-30-2022 10:56-0400 Body height 162.6 cm Cristina Tita SUPERVISOR PAINT DEPARTMENT.VENEER DRIER TAILER Work Phone: [facility] 01-30-2022 10:56-0400 Body temperature 98.2 [degF] Cristina Tita SUPERVISOR PAINT DEPARTMENT.VENEER DRIER TAILER Work Phone: [facility] 01-30-2022 10:56-0400 Body weight 79.2 kg Cristina Tita SUPERVISOR PAINT DEPARTMENT.VENEER D[employer]ER TAILER Work Phone: [facility] 01-30-2022 10:56-0400 Heart rate 68 /min Cristina Tita SUPERVISOR PAINT DEPARTMENT.VENEER DRIER TAILER Work Phone: [facility] 01-30-2022 10:56-0400 Respiratory rate 18 /min Cristina Tita SUPERVISOR PAINT DEPARTMENT.VENEER DRIER TAILER Work Phone: [facility] 01-30-2022 10:56-0400 SaO2% (BldA) [Mass fraction] 97 % Cristina Tita SUPERVISOR PAINT DEPARTMENT.VENEER DRIER TAILER Work Phone: [facility] 11-28-2021 13:01-0400 Body height 162.6 cm Cristina Tita SUPERVISOR PAINT DEPARTMENT.VENEER DRIER TAILER Work Phone: [facility] 11-28-2021 13:01-0400 Body temperature 98.2 [degF] Cristina Tita SUPERVISOR PAINT DEPARTMENT.VENEER DRIER TAILER Work Phone: [facility] 11-28-2021 13:01-0400 Body weight 79.38 kg Cristina Tita SUPERVISOR PAINT DEPARTMENT.VENEER DRIER TAILER Work Phone: [facility] 11-28-2021 13:01-0400 Diastolic blood pressure 70 mm[Hg] Cristina Tita SUPERVISOR PAINT DEPARTMENT.VENEER DRIER TAILER Work Phone: [facility] 11-28-2021 13:01-0400 Heart rate 64 /min Cristina Tita SUPERVISOR PAINT DEPARTMENT.VENEER DRIER TAILER Work Phone: [facility] 11-28-2021 13:01-0400 Respiratory rate 18 /min Cristina Tita SUPERVISOR PAINT DEPARTMENT.VENEER DRIER TAILER Work Phone: [facility] 11-28-2021 13:01-0400 SaO2% (BldA) [Mass fraction] 98 % Cristina Tita SUPERVISOR PAINT DEPARTMENT.VENEER DRIER TAILER Work Phone: [facility] 11-28-2021 13:01-0400 Systolic blood pressure 128 mm[Hg] Cristina Tita SUPERVISOR PAINT DEPARTMENT.VENEER DRIER TAILER Work Phone: [facility] 10-08-2021 11:41-0400 Body height 162.6 cm Cristina Tita SUPERVISOR PAINT DEPARTMENT.VENEER DRIER TAILER Work Phone: [facility] 10-08-2021 11:41-0400 Body temperature 98.2 [degF] Cristina Tita SUPERVISOR PAINT DEPARTMENT.VENEER DRIER TAILER Work Phone: [facility] 10-08-2021 11:41-0400 Body weight 78.93 kg Cristina Tita SUPERVISOR PAINT DEPARTMENT.VENEER DRIER TAILER Work Phone: [facility] 10-08-2021 11:41-0400 Diastolic blood pressure 78 mm[Hg] Cristina Tita SUPERVISOR PAINT DEPARTMENT.VENEER DRIER TAILER Work Phone: [facility] 10-08-2021 11:41-0400 Heart rate 78 /min Cristina Tita SUPERVISOR PAINT DEPARTMENT.VENEER DRIER TAILER Work Phone: [facility] 10-08-2021 11:41-0400 Respiratory rate 18 /min Cristina Tita SUPERVISOR PAINT DEPARTMENT.VENEER DRIER TAILER Work Phone: [facility] 10-08-2021 11:41-0400 SaO2% (BldA) [Mass fraction] 99 % Cristina Tita SUPERVISOR PAINT DEPARTMENT.VENEER DRIER TAILER Work Phone: [facility] 10-08-2021 11:41-0400 Systolic blood pressure 128 mm[Hg] Cristina Crawfordel SUPERVISOR PAINT DEPARTMENT.VENEER DRIER TAILER Work Phone: [facility] 09-11-2021 16:03-0400 Diastolic blood pressure 82 mm[Hg] Cristina Tita SUPERVISOR PAINT DEPARTMENT.VENEER DRIER TAILER Work Phone: [facility] 09-11-2021 16:03-0400 Systolic blood pressure 138 mm[Hg] Cristina Olea SUPERVISOR PAINT DEPARTMENT.VENEER DRIER TAILER Work Phone: [facility] 09-11-2021 15:47-0400 Body height 162.6 cm Cristina Olea SUPERVISOR PAINT DEPARTMENT.VENEER DRIER TAILER Work Phone: [facility] 09-11-2021 15:47-0400 Body temperature 98.2 [degF] Cristina Olea SUPERVISOR PAINT DEPARTMENT.VENEER DRIER TAILER Work Phone: [facility] 09-11-2021 15:47-0400 Body weight 81.28 kg Cristina Olea SUPERVISOR PAINT DEPARTMENT.VENEER DRIER TAILER Work Phone: [facility] 09-11-2021 15:47-0400 Heart rate 65 /min Cristina Olea SUPERVISOR PAINT DEPARTMENT.VENEER DRIER TAILER Work Phone: [facility] 09-11-2021 15:47-0400 Respiratory rate 24 /min Cristina Olea SUPERVISOR PAINT DEPARTMENT.VENEER DRIER TAILER Work Phone: [facility] 09-11-2021 15:47-0400 SaO2% (BldA) [Mass fraction] 99 % Cristina Olea SUPERVISOR PAINT DEPARTMENT.VENEER DRIER TAILER Work Phone: [facility] Encounters Encounter Date Encounter Type Care Provider Facility Start: 05-26-2023 End: 05-26-2023 ambulatory CRISTINA OLEA Facility:[facility] Start: 03-09-2023 Refill Cristina marquis SUPERVISOR PAINT DEPARTMENT.VENEER DRIER TAILER Work Phone: [facility] Procedures Date Procedure Procedure Detail Performing Clinician Start: 01-30-2022 Urnls dip stick/tablet rgnt auto w/o microscopy Cristina Olea APRN.CNP Work Phone: Start: 12-14-2014 Colonoscopy Cristina Olea APRN.CNP Work Phone: Start: 08-22-2006 History of coronary artery bypass grafting AORTOCORONARY BYPASS STATUS Cristina Olea APRN.CNP Work Phone: Plan of Treatment Date Care Activity Detail Author Start: 02-23-2025 Urine microalbumin profile [facility] Start: 10-01-2023 ANNUAL PCP TEAM ELECTRICAL ENGINEERING MANAGER MARCY DISEASE VISIT ANNUAL PCP TEAM CHRONIC DISEASE VISIT [facility] Start: 07-14-2023 LIPID SCREEN LIPID SCREEN [facility] Start: 01-30-2023 ANNUAL PCP TEAM ELECTRICAL ENGINEERING MANAGER MARCY DISEASE VISIT ANNUAL PCP TEAM CHRONIC DISEASE VISIT [facility] Start: 01-16-2023 Covid-19 Vaccine () Covid-19 Vaccine () [facility] Start: 01-16-2023 Influenza vaccination [facility] Start: 11-28-2022 ANNUAL PCP TEAM ELECTRICAL ENGINEERING MANAGER MARCY DISEASE VISIT ANNUAL PCP TEAM CHRONIC DISEASE VISIT [facility] Start: 11-28-2022 BP CONTROLLED (<130/80) BP CONTROLLE D (<130/80) [facility] Start: 11-14-2022 Influenza vaccination INFLUENZA (#1) [facility] Immunizations Immunization Date Immunization Notes Care Provider Fa cili 05-16-2021 influenza, seasonal, injectable, preservative free Cristina Olea APRN.CNP Work Phone: [facility] 05-16-2021 influenza virus vaccine, unspecified formulation Cristina Olea APRN.CNP Work Phone: [facility] 03-21-2020 influenza, high-dose , quadrivalent vaccine (FLUZONE HIGH DOSE QUADRIVALENT) Cristina Olea APRN.CNP Work Phone: [facility] Work Phone: 01-16-2020 zoster vaccine, recombinant, adjuvanted, (SHINGRIX) 50 mcg/0.5 mL injection Cristina Olea APRN.CNP Work Phone: [facility] Work Phone: Payers Date Payer Category Payer Medicare [id number] 2021 Medicare [employer] MEDICARE A ETNA MEDICARE PPO [id number] 2021-Present [phone] [address] [place] [address] PPO [id number] 2021 Medicare [id number] Social History Date Type Detail Facility Start: 09-10-2016 End: 12-11-2022 Tobacco smoking status NHIS Ex-smoker [facility] End: 08-20-2006 History of tobacco use Current smoker [facility] End: 08-20-2006 History of tobacco use Cigarette Smoker [facility] Start: 09-11-2021 End: 12-11-2022 Alcohol intake Current non-drinker of alcohol (finding) [facility] Start: 09-10-2016 End: 02-05-2022 Tobacco Comment Quit 10 years ago 08/22/06 [facility] Start: 1945 Sex Assigned At Not on file [facility] Start: 09-01-2021 End: 02-05-2022 Exposure to SARS-CoV-2 (event) Not sure [facility] Start: 09-10-2016 End: 12-11-2022 Cigarettes smoked current (pack per day) - Reported 0.5 [facility] Start: 09-10-2016 End: 12-11-2022 Tobacco use and exposure Smokeless tobacco non-user [facility] History of tobacco use Passive smoker [facility] Start: 01-16-2020 End: 12-11-2022 Tobacco use panel [facility] Adult Depression Scr eening Assessment 0 [facility] Clinical Notes 07-18-2016 to 05-26-2023 Telephone Encounter - Emelia Michaels MA - 12/17/2022 9:58 AM Simon Goncalves MD - 12/15/2022 2:35 PM EDTPatient InstructionsTelephone Encounter - Emelia Michaels MA - 08/11/2022 3:40 PM EDT Note Date & Type Note Facility 05-26-2023 Note HNO ID: [id number] Author: CRISTINA OLEA APRN.VENEER DRIER TAILER Service: ? Author Type: Nurse Practitioner Type: Progress Notes Filed: 05/26/2023 15:03 Note Text: SUBJECTIVE: Natali Kulkarni is a 78 year old female who presents in follow up on depression. PMH CAD, HTN, HLD, depression, GERD, fibromyalgia, insomnia, chronic pain, epilepsy, hx meningioma. She has not been seen here since 01/30/22. Patient denies changes in health since last office visit. Reports feeling well. I reviewed patients past medical, surgical, social, and family histories today and updated chart. Allergies, chronic medications, and supplements were also reviewed and list is now up to date. Depression: She is taking celexa 20 mg daily. States she continues feeling depressed. She reports she worries about her son who suffers from depression and her who is sick. States she has a lot of pain which contributes to her depression. Denies thoughts of suicide. She declines counseling. states it never helps. She feels she needs something more. THE LAST 2 WEEKS, HAVE YOU BEEN BOTHERED BY ANY OF THE FOLLOWING? - Little interest or pleasure in doing things 1 SEVERAL DAYS Feeling down, depressed, or hopeless 1 Trouble falling or staying asleep, or sleeping too much 1 Feeling tired or having little energy 1 Poor appetite or overeating 0 Feeling bad yourself-you are a failure or have let yourself or others 0 Trouble concentrating, like reading the paper or watching TV 0 Moving/speaking slowly (others notice) OR being more fidgety/restless 0 Thoughts that you would be better off or of hurting yourself 0 PHQ TOTAL SCORE = 4 PHQ problems effect on difficulty of work, home, and social activity: 2 - SOMEWHAT DIFFICULT Feeling nervous, anxious, or on edge 3 Nearly every day Not being able to stop or control worrying 3 Nearly every day Worrying too much about different things 3 Nearly every day Trouble relaxing 0 Not at all sure Being so restless that it's hard to sit still 1 Several days Being easily annoyed or irritable 2 Over half the days Feeling afraid as if something awful might happen 3 Nearly every day JUAN-7 Anxiety Score 15 If you checked off any problems, how difficult have these problems made it for you to do your work, take care of things at home, or get along with other people? Not difficult at all HTN: Ms. Kulkarni indicates that she is feeling well and denies any symptoms referable to elevated blood pressure. Specifically denies headache, chest pain, palpitations, dyspnea, peripheral edema, claudication symptoms, orthopnea, fatigue, and PND. Patient denies any side effects of her medication(s) and is compliant with their regimen. She does check BP's away from this office with average BP's in the 120-130s/70-80s range. Natali denies regular aerobic exercise. She watches her diet for sodium, low fat and low cholesterol some of the time. She is taking HCTZ 25 mg daily and metoprolol 50 mg daily. All medications prescribed by singer songwriter. Last 3 Encounter BP Readings: Date: BP: 12/11/2022 134/77 09/30/2022 142/72 02/05/2022 179/83 CMP: Glucose 99 11/25/2018 BUN 17 11/25/2018 Creatinine 0.91 11/25/2018 Sodium 139 11/25/2018 Potassium 4.8 11/25/2018 Chloride 108 11/25/2018 CO2 28 11/25/2018 Protein, Total 6.8 07/14/2018 Albumin 3.5 07/14/2018 Calcium 8.9 11/25/2018 Alkaline Phosphatase 84 07/14/2018 Bilirubin, Total 0.4 07/14/2018 AST 14 07/14/2018 ALT 21 07/14/2018 Hyperlipidemia. Ms. Kulkarni reports doing well on current therapy of Repatha every 2 wks Sq. Unable to tolerated statins. Her most recent lipid panels are: Cholesterol, Total (mg/dL) Date Value 07/14/2018 206 06/17/2017 219 HDL Cholesterol (mg/dL) Date Value 07/14/2018 40 06/17/2017 47 LDL Chol, Marisol (mg/dL) Date Value 03/11/2011 196 08/01/2010 185 LDL (mg/dL) Date Value 07/14/2018 141 06/17/2017 149 Triglyceride (mg/dL) Date Value 07/14/2018 124 06/17/2017 114 CAD: History of CAD with triple bypass in 2006. She is seeing Amadeo at [facility]. Hx of cardiac stents and PCI with thrombectomy and POBA of ISR- mid LCx stent 05/02/19. She was last seen 12/16/19 by SPENSER Ortega at Dr Schneider office. She had complaints of CP and underwent heart catherization on 09/28/19 with FFR evaluation that did not require intervention. Her Ranexa was increased to 1000 mg twice daily. Pt reports since her chest pain and shoulder pain have resolved. She is taking Plavix and asa, metoprolol, renexa and imdur. Insomnia: Chronic, stable. She is not taking trazodone that is prescribed. She had been on lunesta in the past. She reports she does not sleep. She was on Lunesta for years but reports she did not sleep with this either. She reports her pain keeps her up. When her pain is better controlled she sleeps better. Chronic pain/neuropathy: Low back, bilateral leg, hip, neck, shoulder pain, and chest spasm. Sh (more content not included)... [facility] 12-17-2022 Miscellaneous Notes Last OV 01/30/22 Labs 08/11/22 Called pt let pts know pt needs an apt Pharmacy calls in requesting the following refill(s): Requested Prescriptions Pending Prescriptions Disp Refills citalopram (CELEXA) 20 mg tablet [Pharmacy Med Name: Citalopram Hydrobromide 20 MG Oral Tablet] 90 tablet 0 Sig: TAKE 1 TABLET BY MOUTH ONCE DAILY Emelia Michaels MA documented in this encounter [facility] 12-15-2022 Note HNO ID: [id number] Author: Simon Solares MD Service: ? Author Type: Physician Type: Progress Notes Filed: 12/15/2022 2:46 PM Note Text: [facility] Patient Name: Natali Kulkarni Date of : 1945 Referring Provider: SELF ESTABLISHED EPILEPSY CLINIC NOTE 12/11/2022 10:40 AM Reason for Visit: Follow Up and Seizures Clinical Summary: Ms. Kulkarni is a 77 year old right-handed female seen in [facility]. At today's visit, the patient is accompanied by: Daughter EPILEPSY CLASSIFICATION Focal Epilepsy Seizures: 1. Unclassified Epileptic Seizure (with LOC, post-ictal aphasia) Associated Conditions: - Psychiatric (Depression) HISTORY OF PRESENT ILLNESS Handedness: right-handed Age of onset: 76 years Seizure History and Evolution Ms. 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 Her first episode was in September 2021. She had just recovered from Pneumonia 3 weeks prior to the event. She was at home when she had episode of Loss of consciousness in the bathroom associated with urinary incontinence. She reportedly had difficulty talking after the event ( post-ictal aphasia). She sustained facial injuries from the fall. No report of tongue bite. Her second event was in November 2021 where her found her sitting in the bedroom unresponsive. She had difficulty speaking. She had urinary incontinence. No clear reports of a convulsion noted. She was admitted to [facility] where an EEG per report showed focal slowing, sharp and brief runs of LOG HAULER in the left frontotemporal region . She was started on Keppra 500 mg BID after consultation with neurology team. MRI initially showed possible diffusion restriction in the right frontal lobe but further addendum per radiaology suggested this was most-likely T2 shine through. She was told that the prior event in September could also reflect a seizure event. She is tolerating Keppra well. Daughter has mentioned some irritability. Risk factors: H/o Left sphenoid meningioma s/p resection with MRI showing gliosis along the left temporal pole on my personal review Son with h/o epilepsy onset at 39. Had 3 GTCS so far. Other concerns: Depression-stable on Celexa. Reports dizziness -both vertiginous and lightheadness. Reports since Covid last year, she has been dizzy along with loss of hearing and pain in the right ear. She has not seen ENT Reports of numbness in her feet for which she is taking Gabapentin 200 mg BID. Previously tried higher doses but caused dry mouth. Also takes Percocet, Baclofen PRN for chronic pain Interval Seizure History Since last visit in January 2022, she has no further seizure recurrence. She is tolerating Keppra 500 mg dose. She was seen by cardiology at [facility] for dizziness. Her symptoms are now better. She wonders if dizziness is related to her prior seizures. Carotid duplex shows irregular calcified plaque in proximal right and left ICA with less than 50% stenosis. Total # of Current Anti-seizure Medications: Side Effects to Current Anti-seizure Medications: Seizure Frequency at First Visit: 2 per 6 months Longest Seizure-free Interval: Number of seizure types: 1 Hx of generalized tonic-clonic seizures: No Urine or Bowel Incontinence: No Postictal Deficits: Yes (Comment: Aphasia) Status Epilepticus or clusters: No Postictal Agitation: No Seizure-related driving accidents: No Driving: No Lives Alone: No CURRENT OUTPATIENT ANTISEIZURE MEDICATIONS (as of the start of the encounter) gabapentin (NEURONTIN) 100 mg capsule (Taking) Take 2 capsules by mouth twice daily for 92 days. Per pain management Doctor levETIRAcetam (KEPPRA) 500 mg tablet Take 1 tablet by mouth twice daily. Prior Anti-seizure Therapies: Trial Adequacy: Max Daily Dose Achieved: Side Effects: Effectiveness: Comments: Gabapentin, other use Levetiracetam Topiramate, other use Comorbidities: Minor: Depression, Hypertension Episode Description: SEIZURE TYPE 1: LOC with aphasia Onset: 09/2021 Aura: no Description: Episodes of loss of consciousness with urinary incontinence and post-ictal aphasia. Unclear if convulsions were witnessed. Loss of awareness: Duration: Frequency: Last occurred: yes 1 to 5 minutes Patient Entered Data: EPILEPSY SCORE No Data PHQ-9 SCORE - JUAN 2 SCORE - JUAN 7 SCORE - QOLIE-10 SCORE (0=worst; 100=best QoL - higher scores represent better function) - LSSS SCORE (0- no seizures 100- most severe possible seizures) - C-SSRS SCREEN - On average, how many hours of sleep do you get in a 24-hour period? - PROMIS Sleep Disturbance T-SCORE - Have you been diagnosed with Sle (more content not included)... [facility] 12-15-2022 History of Presen t illness Narrative [facility] Patient Name: Natali Kulkarni Date of : 1945 Referring Provider: SELF ESTABLISHED EPILEPSY CLINIC NOTE 12/11/2022 10:40 AM Reason for Visit: Follow Up and Seizures Clinical Summary: Ms. Kulkarni is a 77 year old right-handed female seen in [facility]. At today's visit, the patient is accompanied by: Daughter EPILEPSY CLASSIFICATION Focal Epilepsy Seizures: 1. Unclassified Epileptic Seizure (with LOC, post-ictal aphasia) Associated Conditions: - Psychiatric (Depression) HISTORY OF PRESENT ILLNESS Handedness: right-handed Age of onset: 76 years Seizure History and Evolution Ms. 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 Her first episode was in September 2021. She had just recovered from Pneumonia 3 weeks prior to the event. She was at home when she had episode of Loss of consciousness in the bathroom associated with urinary incontinence. She reportedly had difficulty talking after the event ( post-ictal aphasia). She sustained facial injuries from the fall. No report of tongue bite. Her second event was in November 2021 where her found her sitting in the bedroom unresponsive. She had difficulty speaking. She had urinary incontinence. No clear reports of a convulsion noted. She was admitted to [facility] where an EEG per report showed focal slowing, sharp and brief runs of LOG HAULER in the left frontotemporal region . She was started on Keppra 500 mg BID after consultation with neurology team. MRI initially showed possible diffusion restriction in the right frontal lobe but further addendum per radiaology suggested this was most-likely T2 shine through. She was told that the prior event in September could also reflect a seizure event. She is tolerating Keppra well. Daughter has mentioned some irritability. Risk factors: H/o Left sphenoid meningioma s/p resection with MRI showing gliosis along the left temporal pole on my personal review Son with h/o epilepsy onset at 39. Had 3 GTCS so far. Other concerns: Depression-stable on Celexa. Reports dizziness -both vertiginous and lightheadness. Reports since Covid last year, she has been dizzy along with loss of hearing and pain in the right ear. She has not seen ENT Reports of numbness in her feet for which she is taking Gabapentin 200 mg BID. Previously tried higher doses but caused dry mouth. Also takes Percocet, Baclofen PRN for chronic pain Interval Seizure History Since last visit in January 2022, she has no further seizure recurrence. She is tolerating Keppra 500 mg dose. She was seen by cardiology at [facility] for dizziness. Her symptoms are now better. She wonders if dizziness is related to her prior seizures. Carotid duplex shows irregular calcified plaque in proximal right and left ICA with less than 50% stenosis. Total # of Current Anti-seizure Medications: Side Effects to Current Anti-seizure Medications: Seizure Frequency at First Visit: 2 per 6 months Longest Seizure-free Interval: Number of seizure types: 1 Hx of generalized tonic-clonic seizures: No Urine or Bowel Incontinence: No Postictal Deficits: Yes (Comment: Aphasia) Status Epilepticus or clusters: No Postictal Agitation: No Seizure-related driving accidents: No Driving: No Lives Alone: No CURRENT OUTPATIENT ANTISEIZURE MEDICATIONS (as of the start of the encounter) gabapentin (NEURONTIN) 100 mg capsule (Taking) Take 2 capsules by mouth twice daily for 92 days. Per pain management Doctor levETIRAcetam (KEPPRA) 500 mg tablet Take 1 tablet by mouth twice daily. Prior Anti-seizure Therapies: Trial Adequacy: Max Daily Dose Achieved: Side Effects: Effectiveness: Comments: Gabapentin, other use Levetiracetam Topiramate, other use Comorbidities: Minor: Depression, Hypertension Episode Description: SEIZURE TYPE 1: LOC with aphasia Onset: 09/2021 Aura: no Description: Episodes of loss of consciousness with urinary incontinence and post-ictal aphasia. Unclear if convulsions were witnessed. Loss of awareness: Duration: Frequency: Last occurred: yes 1 to 5 minutes Patient Entered Data: EPILEPSY SCORE No Data PHQ-9 SCORE - JUAN 2 SCORE - JUAN 7 SCORE - QOLIE-10 SCORE (0=worst; 100=best QoL - higher scores represent better function) - LSSS SCORE (0- no seizures 100- most severe possible seizures) - C-SSRS SCREEN - On average, how many hours of sleep do you get in a 24-hour period? - PROMIS Sleep Disturbance T-SCORE - Have you been diagnosed with Sleep Apnea? - Seizure risk factors: Brain Tumor Unanswered [employer] Infections Unanswered Developmental Delay Unanswered Family history of seizures Unanswered Febrile Seizure Unanswered Complications Unanswered Stroke Unanswered Traumatic Brain Injury Unanswered Previous Epilepsy Evaluations [facility] 11/2021 MRI shows no evidence of residual or recurrent meningioma, mass or acute intracranial abnormality. EEG was abnormal showing focal slowing, sharp and brief runs of LOG HAULER in the left frontotemporal region Other caregivers: Primary Care Provider: Cristina Olea APRN.[employer] Current Outpatient Medications Medication Sig REPATHA SURECLICK 140 mg/mL pen injector citalopram (CELEXA) 20 mg tablet Take 1 tablet by mouth once daily. clopidogrel (PLAVIX) 75 mg tablet Take 75 mg by mouth once daily. hydroCHLOROthiazide (HYDRODIURIL, ESIDRIX) 25 mg tablet Take 25 mg by mouth once daily. traZODone (DESYREL) 50 mg tablet Take 50 mg by mouth daily at bedtime. isosorbide mononitrate ER (IMDUR) 60 mg 24 hr tablet ranolazine SR (RANEXA) 1,000 mg tab ER 12 hr gabapentin (NEURONTIN) 100 mg capsule Take 2 capsules by mouth twice daily for 92 days. Per pain management Doctor baclofen (LIORESAL) 5 mg tablet Take by mouth. benzonatate (TESSALON PERLES) 100 mg capsule Take 1 capsule by mouth three times daily as needed for cough. docusate sodium (COLACE) 100 mg capsule AT BEDTIME metoprolol succinate ER (TOPROL XL) 50 mg 24 hr tablet albuterol HFA (PROAIR HFA) 90 mcg/actuation inhaler Inhale 2 Puffs as instructed every 4 hours as needed. hydrOXYzine HCl (ATARAX) 25 mg tablet Take 1 tablet by mouth daily at bedtime. As needed for itching furosemide (LASIX) 20 mg tablet Take 1 tablet by mouth as needed. pantoprazole sodium (PROTONIX ORAL) Take 20 mg by mouth once daily. fexofenadine (NAZIA) 60 mg tablet TAKE 1 TABLET BY MOUTH EVERY DAY oxyCODONE-acetaminophen (PERCOCET) 7.5-325 mg tablet nitroglycerin sublingual (NITROQUICK) 0.4 mg SL tablet Dissolve 0.4 mg under the tongue every 5 minutes as needed. losartan (COZAAR) 100 mg tablet Take 100 mg by mouth once daily. Aspirin 81 mg ORAL Tab Take one(1) tablet daily. levETIRAcetam (KEPPRA) 500 mg tablet Take 1 tablet by mouth twice daily. No current facility-administered medications for this visit. ALLERGIES Allergen Reactions Lisinopril Anaphylaxis cough Justo Inhibitors Unknown Amlodipine Unknown fatigue Atenolol Unknown bradycardia Atorvastatin Unknown myalgias Codeine GI Upset Ezetimibe Unknown myalgia Ibuprofen GI Upset Midrin [Isometh-Dic* Intolerance Shakey, anxious Pitavastatin Unknown myalgia Pravastatin Unknown myalgia Ranolazine Unknown Dry mouth Rosuvastatin Calcium Unknown myalgia Simvastatin Unknown myalgia Spironolactone Unknown Sulfa (Sulfonamide * Swelling Topamax [Topiramate] Other: See Comments dizziness PAST MEDICAL HISTORY Diagnosis Date Arthritis Benign neoplasm of cerebral meninges (HCC) 2005 Craniotomy CAD (coronary artery disease) 08/22/2006 NSTEMI. Calculus of gallbladder without mention of cholecystitis or obstruction 12/01/2005 Contact dermatitis and other eczema, due to unspecified cause 04/25/2005 Vulvar dermatitis Depressive disorder, not elsewhere classified 04/25/2005 Diaphragmatic hernia without mention of obstruction or gangrene Diverticulosis of colon (without mention of hemorrhage) and diverticulitis in 09/25 Esophageal reflux Esophagitis, unspecified Fibromyalgia GERD (gastroesophageal reflux disease) Heart attack (HCC) Muscle disease Other and unspecified disc disorder of lumbar region 04/25/2005 Dr. 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 EGD TRANSORAL BIOPSY SINGLE/MULTIPLE 04/17/09 ESOPHAGOGASTRODUODENOSCOPY TRANSORAL DIAGNOSTIC 12/10/2005 EGD ESOPHAGOGASTRODUODENOSCOPY TRANSORAL DIAGNOSTIC 01/08/2012 EGD ESOPHAGOGASTRODUODENOSCOPY TRANSORAL DIAGNOSTIC 12/14/14 EGD ESOPHAGOGASTRODUODENOSCOPY TRANSORAL DIAGNOSTIC 02/20/16 EGD mac escobar [facility] out pt GASTROESOPHAG REFLX TEST W/TELEMTRY PH ELTRD 04/17/2009 HEART SURGERY HX CABG x 3 LAPAROSCOPY SURG CHOLECYSTECTOMY 01/2006 Cholecystectomy, lap LEFT HEART CATH,PERCUTANEOUS 08/2006 Post CABG, repeat cath. LIG/TRNSXJ FLP TUBE ABDL/VAG APPR UNI/BI MRI 08/01/2009 on head previous brain tumor 2005 PAST SURGICAL HISTORY OF rt side of head SKIN CANCER PAST SURGICAL HISTORY OF spine surgery- 2 lower back and one neck PAST SURGICAL HISTORY OF 06/12/2006 Left craniotomy, Meningioma, [place] [facility] VAGINAL HYSTERECTOMY UTERUS 250 GM/< 1982 approx FAMILY HISTORY Problem Relation Age of Onset Cancer Mother LUNG , BONE Prostate Cancer Brother Heart Sister M.I. Hypertension Sister Heart Father CVA SOCIAL HISTORY: -Lives in [place], [place] -Patient lives alone? No -Vocation: -Education: -Cigarette, alcohol, substance use: -Functional status: independent in activities of daily living -Patient driving? No Review of Systems All other systems reviewed and are negative. VITAL SIGNS: BP 134/77 Pulse 62 Resp 18 Ht 162.6 cm (5' 4 ) Wt 78 kg (172 lb) BMI 29.52 kg/m General Examination: She is accompanied By her daughter. General: Awake, alert, interactive, no acute distress, good nutritional status, normal development, well-kept Neurological Exam Mental Status Alert, fully oriented, attentive, with normal cognition, memory, speech and affect. Cranial Nerves Face symmetric. Hearing intact with conversational speech. Motor Examination and Coordination Motor examination with normal bulk. Normal coordination. No adventitious movements or significant tremor. Gait Casual gait normal. IMPRESSION: Ms. 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 Semiology of LOC with post-ictal aphasia. MRI from 2010 on my personal review shows areas of gliosis along the left temporal pole -? Sequela of prior meningioma resection surgery. OSH EEG report suggest slowing and sharp brief runs of rhythmic delta in the left fronto-temporal region. Discussed continuing Keppra at this time given recurrence risk based on MRI findings. Will repeat EEG at [facility]. Patient to get discs from [facility]. For her vertigo,ear pain and hearing loss on the right side, I encouraged the patient to discuss with PCP- she may need referral to ENT. 12/15/2022 : Doing well on Keppra monotherapy without seizure recurrence. We will continue the same medication. She is reporting paresthesias in her feet and is requesting neurology evaluation. We will place a consult to neuromuscular center. Discussed with the patient that dizziness can be a nonspecific sign and not necessarily related to her seizures or prior meningioma in the left inferior frontal/anterior temporal region. If her dizziness symptoms continue, she may benefit from referral to syncope clinic. PLAN: Continue Keppra 500 mg BID Referred to neuromuscular clinic for evaluation of neuropathy in bilateral lower extremities Follow-up in 1 year Data reviewed as above including: electronic medical record Education Seizure precautions - No driving in the [facility] until seizure free for 6 months - No operating heavy machines - No swimming without supervision or bathing in a bathtub due to risk of drowning in the event of a seizure. Patient may shower. - Avoid unsafe heights, including ladders, due to risk of fall-related injury in the event of a seizure. - Seizure precipitating factors discussed including not taking seizure medications as prescribed, stress, excessive caffeine intake, energy drinks, alcohol, sleep deprivation or any identifiable seizure precipitating factor. I discussed the risks, benefits and alternatives of the medical plan with the patient. Questions were answered. The patient agreed with the plan as discussed. FOLLOW-UP: Return in about 1 year (around 12/12/2023). I spent a total of 30 minutes on the date of the service which included: preparing to see the patient [id number] patient care obtaining and/or reviewing separately obtained history completing clinical documentation performing a medically appropriate examination counseling and educating the patient/family/caregiver ordering medications, tests, or procedures Simon Solares MD cc: Primary Care Physician: Cristina Olea APRN.[employer] [address] [facility] [id number] Referring: SELF Phone: N/A Fax: Patient: Ms. Natali Kulkarni [address] [facility] [id number] documented in this encounter [facility] 12-11-2022 Instructions Simon Solares MD - 12/11/2022 11:15 AM EDT Continue Keppra (Levetiracetam) 500 mg twice a day If your dizziness gets worse, please ask your primary care physician to refer you to Syncope clinic. Seizure precautions - No driving in the [facility] until seizure free for 6 months - No operating heavy machines - No swimming without supervision or bathing in a bathtub due to risk of drowning in the event of a seizure. Patient may shower. - Avoid unsafe heights, including ladders, due to risk of fall-related injury in the event of a seizure. - Seizure precipitating factors discussed including not taking seizure medications as prescribed, stress, excessive caffeine intake, energy drinks, alcohol, sleep deprivation or any identifiable seizure precipitating factor. Simon Solares MD Associate Staff, Epilepsy [facility] December 11, 2022 Office phone: [phone] documented in this encounter [facility] 09-30-2022 Note HNO ID: [id number] Author: Ze Parrish MD Service: ? Author Type: Physician Type: Progress Notes Filed: 09/30/2022 3:16 PM Note Text: Chief Complaint Patient presents with: UTI: Discomfort externally AND while voiding x 2 weeks HPI Natali Kulkarni is a 77 year old female who presents here today for Above Complaints.. Patient complaining of dysuria and strong smelling urine for the last 2 weeks along with frequency and urgency. Denies fever/chills, hematuria, abdominal pain, nausea, vomiting, flank pain, vaginal discharge or itching. Past medical history, appointments, medications, allergies reviewed. Previous Medical History PAST MEDICAL HISTORY Diagnosis Date Arthritis Benign neoplasm of cerebral meninges (HCC) 2006 Craniotomy CAD (coronary artery disease) 08/22/2006 NSTEMI. Calculus of gallbladder without mention of cholecystitis or obstruction 12/01/2005 Contact dermatitis and other eczema, due to unspecified cause 04/25/2005 Vulvar dermatitis Depressive disorder, not elsewhere classified 04/25/2005 Diaphragmatic hernia without mention of obstruction or gangrene Diverticulosis of colon (without mention of hemorrhage) and diverticulitis in 09/25 Esophageal reflux Esophagitis, unspecified Fibromyalgia GERD (gastroesophageal reflux disease) Heart attack (HCC) Muscle disease Other and unspecified disc disorder of lumbar region 04/25/2005 Dr. 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 EGD TRANSORAL BIOPSY SINGLE/MULTIPLE 04/17/09 ESOPHAGOGASTRODUODENOSCOPY TRANSORAL DIAGNOSTIC 12/10/2005 EGD ESOPHAGOGASTRODUODENOSCOPY TRANSORAL DIAGNOSTIC 01/08/2012 EGD ESOPHAGOGASTRODUODENOSCOPY TRANSORAL DIAGNOSTIC 12/14/14 EGD ESOPHAGOGASTRODUODENOSCOPY TRANSORAL DIAGNOSTIC 02/20/16 EGD mac escobar [facility] out pt GASTROESOPHAG REFLX TEST W/TELEMTRY PH ELTRD 04/17/2009 HEART SURGERY HX CABG x 3 LAPAROSCOPY SURG CHOLECYSTECTOMY 01/2006 Cholecystectomy, lap LEFT HEART CATH,PERCUTANEOUS 08/2006 Post CABG, repeat cath. LIG/TRNSXJ FLP TUBE ABDL/VAG APPR UNI/BI MRI 08/01/2009 on head previous brain tumor 2005 PAST SURGICAL HISTORY OF rt side of head SKIN CANCER PAST SURGICAL HISTORY OF spine surgery- 2 lower back and one neck PAST SURGICAL HISTORY OF 06/12/2006 Left craniotomy, Meningioma, [place] [facility] VAGINAL HYSTERECTOMY UTERUS 250 GM/< 1982 approx Family History FAMILY HISTORY Problem Relation Age of Onset Cancer Mother LUNG , BONE Prostate Cancer Brother Heart Sister M.I. Hypertension Sister Heart Father CVA Patient Allergies ALLERGIES Allergen Reactions Lisinopril Anaphylaxis cough Justo Inhibitors Unknown Amlodipine Unknown fatigue Atenolol Unknown bradycardia Atorvastatin Unknown myalgias Codeine GI Upset Ezetimibe Unknown myalgia Ibuprofen GI Upset Midrin [Isometh-Dic* Intolerance Shakey, anxious Pitavastatin Unknown myalgia Pravastatin Unknown myalgia Ranolazine Unknown Dry mouth Rosuvastatin Calcium Unknown myalgia Simvastatin Unknown myalgia Spironolactone Unknown Sulfa (Sulfonamide * Swelling Topamax [Topiramate] Other: See Comments dizziness Current Medications Current Outpatient Medications on File Prior to Visit Medication Sig citalopram (CELEXA) 20 mg tablet Take 1 tablet by mouth once daily. clopidogrel (PLAVIX) 75 mg tablet Take 75 mg by mouth once daily. hydroCHLOROthiazide (HYDRODIURIL, ESIDRIX) 25 mg tablet Take 25 mg by mouth once daily. traZODone (DESYREL) 50 mg tablet Take 50 mg by mouth daily at bedtime. levETIRAcetam (KEPPRA) 500 mg tablet Take 1 tablet by mouth twice daily. isosorbide mononitrate ER (IMDUR) 60 mg 24 hr tablet ranolazine SR (RANEXA) 1,000 mg tab ER 12 hr gabapentin (NEURONTIN) 100 mg capsule Take 2 capsules by mouth twice daily for 92 days. Per pain management Doctor baclofen (LIORESAL) 5 mg tablet Take by mouth. benzonatate (TESSALON PERLES) 100 mg capsule Take 1 capsule by mouth three times daily as needed for cough. docusate sodium (COLACE) 100 mg capsule AT BEDTIME metoprolol succinate ER (TOPROL XL) 50 mg 24 hr tablet albuterol HFA (PROAIR HFA) 90 mcg/actuation inhaler Inhale 2 Puffs as instructed every 4 hours as needed. hydrOXYzine HCl (ATARAX) 25 mg tablet Take 1 tablet by mouth daily at bedtime. As needed for itching furosemide ( (more content not included)... [facility] 08-11-2022 Miscellaneous Notes Pt called and changed her pharmacy and would like it sent to mail order Pharmacy calls in requesting the following refill(s): Requested Prescriptions Pending Prescriptions Disp Refills citalopram (CELEXA) 20 mg tablet 90 tablet 1 Sig: Take 1 tablet by mouth once daily. Emelia Michaels MA documented in this encounter [facility] 08-11-2022 Miscellaneous Notes Last OV 01/30/22 Labs 08/05/22 Pharmacy calls in requesting the following refill(s): Requested Prescriptions Pending Prescriptions Disp Refills citalopram (CELEXA) 20 mg tablet 90 tablet 1 Sig: Take 1 tablet by mouth once daily. Emelia Michaels MA documented in this encounter [facility] 07-17-2022 Miscellaneous Notes Received office note from [facility] that states they stopped patient's Brillinta and started her on clopidogrel 75 mg daily and also started her on HCTZ 25 mg daily. Med list has been updated. Eleanor Morales MA documented in this encounter [facility] 02-05-2022 History of Presen t illness Narrative [facility] Patient Name: Natali NOVAK Date of : 1945 Referring Provider: SELF INITIAL EPILEPSY CLINIC NOTE 02/05/2022 8:00 AM CHIEF COMPLAINT: New Patient and Seizures HISTORY OF PRESENT ILLNESS Ms. Kulkarni is a 77 year old right-handed female seen in [facility] for initial consultation. At today's visit, the patient is accompanied by: daughter Handedness: right-handed Age of onset: 76 years Seizure History and Evolution Ms. 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 Her first episode was in September 2021. She had just recovered from Pneumonia 3 weeks prior to the event. She was at home when she had episode of Loss of consciousness in the bathroom associated with urinary incontinence. She reportedly had difficulty talking after the event ( post-ictal aphasia). She sustained facial injuries from the fall. No report of tongue bite. Her second event was in November 2021 where her found her sitting in the bedroom unresponsive. She had difficulty speaking. She had urinary incontinence. No clear reports of a convulsion noted. She was admitted to [facility] where an EEG per report showed focal slowing, sharp and brief runs of LOG HAULER in the left frontotemporal region . She was started on Keppra 500 mg BID after consultation with neurology team. MRI initially showed possible diffusion restriction in the right frontal lobe but further addendum per radiaology suggested this was most-likely T2 shine through. She was told that the prior event in September could also reflect a seizure event. She is tolerating Keppra well. Daughter has mentioned some irritability. Risk factors: H/o Left sphenoid meningioma s/p resection with MRI showing gliosis along the left temporal pole on my personal review Son with h/o epilepsy onset at 39. Had 3 GTCS so far. Other concerns: Depression-stable on Celexa. Reports dizziness -both vertiginous and lightheadness. Reports since Covid last year, she has been dizzy along with loss of hearing and pain in the right ear. She has not seen ENT Reports of numbness in her feet for which she is taking Gabapentin 200 mg BID. Previously tried higher doses but caused dry mouth. Also takes Percocet, Baclofen PRN for chronic pain Total # of Current Anti-seizure Medications: 1 Side Effects to Current Anti-seizure Medications: mild irritability Seizure Frequency at First Visit: 2 per 6 months Longest Seizure-free Interval: Number of seizure types: 1 Hx of generalized tonic-clonic seizures: No Urine or Bowel Incontinence: No Postictal Deficits: Yes (Comment: Aphasia) Status Epilepticus or clusters: No Postictal Agitation: No Seizure-related driving accidents: No Driving: No Lives Alone: No ED Visits in Last 3 Months: Yes Hospitalizations in Last 3 Months: Yes CURRENT OUTPATIENT ANTISEIZURE MEDICATIONS (as of the start of the encounter) gabapentin (NEURONTIN) 100 mg capsule (Taking) Take 2 capsules by mouth twice daily for 92 days. Per pain management Doctor levETIRAcetam (KEPPRA) 500 mg tablet TAKE 1 TABLET BY MOUTH TWICE A DAY Prior Anti-seizure Therapies: Trial Adequacy: Max Daily Dose Achieved: Side Effects: Effectiveness: Comments: Gabapentin, other use Levetiracetam Topiramate, other use Comorbidities: Minor: Depression, Hypertension Episode Description: SEIZURE TYPE 1: LOC with aphasia Onset: 09/2021 Aura: no Description: Episodes of loss of consciousness with urinary incontinence and post-ictal aphasia. Unclear if convulsions were witnessed. Loss of awareness: Duration: Frequency: Last occurred: yes 1 to 5 minutes November 2021 Patient Entered Data: EPILEPSY SCORE No Data PHQ-9 SCORE - JUAN 2 SCORE - JUAN 7 SCORE - QOLIE-10 SCORE (0=worst; 100=best QoL - higher scores represent better function) - LSSS SCORE (0- no seizures 100- most severe possible seizures) - C-SSRS SCREEN - On average, how many hours of sleep do you get in a 24-hour period? - PROMIS Sleep Disturbance T-SCORE - Have you been diagnosed with Sleep Apnea? - Seizure risk factors: Brain Tumor Unanswered [employer] Infections Unanswered Developmental Delay Unanswered Family history of seizures Unanswered Febrile Seizure Unanswered Complications Unanswered Stroke Unanswered Traumatic Brain Injury Unanswered Previous Epilepsy Evaluations [facility] 11/2021 MRI shows no evidence of residual or recurrent meningioma, mass or acute intracranial abnormality. EEG was abnormal showing focal slowing, sharp and brief runs of LOG HAULER in the left frontotemporal region Other caregivers: Primary Care Provider: Cristina Olea APRN.[employer] Current Outpatient Medications Medication Sig traZODone (DESYREL) 50 mg tablet Take 50 mg by mouth daily at bedtime. citalopram (CELEXA) 20 mg tablet Take 1 tablet by mouth once daily. isosorbide mononitrate ER (IMDUR) 60 mg 24 hr tablet ranolazine SR (RANEXA) 1,000 mg tab ER 12 hr gabapentin (NEURONTIN) 100 mg capsule Take 2 capsules by mouth twice daily for 92 days. Per pain management Doctor baclofen (LIORESAL) 5 mg tablet Take by mouth. benzonatate (TESSALON PERLES) 100 mg capsule Take 1 capsule by mouth three times daily as needed for cough. docusate sodium (COLACE) 100 mg capsule AT BEDTIME metoprolol succinate ER (TOPROL XL) 50 mg 24 hr tablet albuterol HFA (PROAIR HFA) 90 mcg/actuation inhaler Inhale 2 Puffs as instructed every 4 hours as needed. hydrOXYzine HCl (ATARAX) 25 mg tablet Take 1 tablet by mouth daily at bedtime. As needed for itching furosemide (LASIX) 20 mg tablet Take 1 tablet by mouth as needed. pantoprazole sodium (PROTONIX ORAL) Take 20 mg by mouth once daily. ticagrelor (BRILINTA) 90 mg tablet Take 90 mg by mouth twice daily. fexofenadine (NAZIA) 60 mg tablet TAKE 1 TABLET BY MOUTH EVERY DAY oxyCODONE-acetaminophen (PERCOCET) 7.5-325 mg tablet nitroglycerin sublingual (NITROQUICK) 0.4 mg SL tablet Dissolve 0.4 mg under the tongue every 5 minutes as needed. losartan (COZAAR) 100 mg tablet Take 100 mg by mouth once daily. Aspirin 81 mg ORAL Tab Take one(1) tablet daily. levETIRAcetam (KEPPRA) 500 mg tablet Take 1 tablet by mouth twice daily. No current facility-administered medications for this visit. ALLERGIES Allergen Reactions Lisinopril Anaphylaxis cough Justo Inhibitors Unknown Amlodipine Unknown fatigue Atenolol Unknown bradycardia Atorvastatin Unknown myalgias Codeine GI Upset Ezetimibe Unknown myalgia Ibuprofen GI Upset Midrin [Isometh-Dic* Intolerance Shakey, anxious Pitavastatin Unknown myalgia Pravastatin Unknown myalgia Ranolazine Unknown Dry mouth Rosuvastatin Calcium Unknown myalgia Simvastatin Unknown myalgia Spironolactone Unknown Sulfa (Sulfonamide * Swelling Topamax [Topiramate] Other: See Comments dizziness PAST MEDICAL HISTORY Diagnosis Date Arthritis Benign neoplasm of cerebral meninges (HCC) 2006 Craniotomy CAD (coronary artery disease) 08/22/2006 NSTEMI. Calculus of gallbladder without mention of cholecystitis or obstruction 12/01/2005 Contact dermatitis and other eczema, due to unspecified cause 04/25/2005 Vulvar dermatitis Depressive disorder, not elsewhere classified 04/25/2005 Diaphragmatic hernia without mention of obstruction or gangrene Diverticulosis of colon (without mention of hemorrhage) and diverticulitis in 09/25 Esophageal reflux Esophagitis, unspecified Fibromyalgia GERD (gastroesophageal reflux disease) Heart attack (HCC) Muscle disease Other and unspecified disc disorder of lumbar region 04/25/2005 Dr. 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 EGD TRANSORAL BIOPSY SINGLE/MULTIPLE 04/17/09 ESOPHAGOGASTRODUODENOSCOPY TRANSORAL DIAGNOSTIC 12/10/2005 EGD ESOPHAGOGASTRODUODENOSCOPY TRANSORAL DIAGNOSTIC 01/08/2012 EGD ESOPHAGOGASTRODUODENOSCOPY TRANSORAL DIAGNOSTIC 12/14/14 EGD ESOPHAGOGASTRODUODENOSCOPY TRANSORAL DIAGNOSTIC 02/20/16 EGD mac escobar [facility] out pt GASTROESOPHAG REFLX TEST W/TELEMTRY PH ELTRD 04/17/2009 HEART SURGERY HX CABG x 3 LAPAROSCOPY SURG CHOLECYSTECTOMY 01/2006 Cholecystectomy, lap LEFT HEART CATH,PERCUTANEOUS 08/2006 Post CABG, repeat cath. LIG/TRNSXJ FLP TUBE ABDL/VAG APPR UNI/BI MRI 08/01/2009 on head previous brain tumor 2006 PAST SURGICAL HISTORY OF rt side of head SKIN CANCER PAST SURGICAL HISTORY OF spine surgery- 2 lower back and one neck PAST SURGICAL HISTORY OF 06/12/2006 Left craniotomy, Meningioma, [place] [facility] VAGINAL HYSTERECTOMY UTERUS 250 GM/< 1982 approx FAMILY HISTORY Problem Relation Age of Onset Cancer Mother LUNG , BONE Prostate Cancer Brother Heart Sister M.I. Hypertension Sister Heart Father CVA SOCIAL HISTORY: -Lives in [place], [place] -Patient lives alone? No -Vocation: -Education: -Cigarette, alcohol, substance use: -Functional status: independent in activities of daily living -Patient driving? No Review of Systems All other systems reviewed and are negative. VITAL SIGNS: BP 179/83 Pulse 65 Resp 18 Ht 165.1 cm (5' 5 ) Wt 78 kg (172 lb) BMI 28.62 kg/m General Examination: She is accompanied by her daughter. General: Awake, alert, interactive, no acute distress, good nutritional status, normal development, well-kept Neurological Exam Mental Status Alert, fully oriented, attentive, with normal cognition, memory, speech and affect. Cranial Nerves Pupils equal. EOM full. Face symmetric. Hearing intact with conversational speech. Motor Examination and Coordination Normal coordination. No adventitious movements or significant tremor. Gait Casual gait normal. IMPRESSION: Ms. 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 Semiology of LOC with post-ictal aphasia. MRI from 2010 on my personal review shows areas of gliosis along the left temporal pole -? Sequela of prior meningioma resection surgery. OSH EEG report suggest slowing and sharp brief runs of rhythmic delta in the left fronto-temporal region. Discussed continuing Keppra at this time given recurrence risk based on MRI findings. Will repeat EEG at [facility]. Patient to get discs from [facility]. For her vertigo,ear pain and hearing loss on the right side, I encouraged the patient to discuss with PCP- she may need referral to ENT. The patient's compliance with therapy has been: Reasonable EPILEPSY CLASSIFICATION Focal Epilepsy Seizures: 1. Unclassified Epileptic Seizure (with LOC, post-ictal aphasia) Associated Conditions: - Psychiatric (Depression) PLAN: Continue Keppra 500 mg BID- refills sent Trial of Vitamin B6 100 mg daily in AM Long EEG Follow up in 3 months Seizure precautions discussed Data reviewed as above including: outside records, electronic medical record, MRI images Testing Ordered Long EEG Education Seizure precautions - No driving in the [facility] until seizure free for 6 months - No swimming without supervision or bathing in a bathtub due to risk of drowning in the event of a seizure. Patient may shower. - Avoid unsafe heights, including ladders, due to risk of fall-related injury in the event of a seizure. - Seizure precipitating factors discussed including not taking seizure medications as prescribed, stress, excessive caffeine intake, energy drinks, alcohol, sleep deprivation or any identifiable seizure precipitating factor. Medical Management Future options- OXC, LTG I discussed the risks, benefits and alternatives of the medical plan with the patient. Questions were answered. The patient agreed with the plan as discussed. FOLLOW-UP: Return in about 3 months (around 05/07/2022). I spent a total of 60 minutes on the date of the service which included: preparing to see the patient [id number] patient care completing clinical documentation obtaining and/or reviewing separately obtained history counseling and educating the patient/family/caregiver performing a medically appropriate examination ordering medications, tests, or procedures Simon Solares MD cc: Primary Care Physician: Cristina Olea APRN.[employer] [address] [facility] [id number] Referring: SELF Phone: N/A Fax: Patient: [facility]. [facility] [address] [facility] [address] documented in this encounter [facility] 02-05-2022 Instructions Simon Solares MD - 02/05/2022 9:05 AM EDT Seizure precautions - No driving in the [facility] until seizure free for 6 months - No swimming without supervision or bathing in a bathtub due to risk of drowning in the event of a seizure. Patient may shower. - Avoid unsafe heights, including ladders, due to risk of fall-related injury in the event of a seizure. - Seizure precipitating factors discussed including not taking seizure medications as prescribed, stress, excessive caffeine intake, energy drinks, alcohol, sleep deprivation or any identifiable seizure precipitating factor. Try taking Vitamin B6 100 mg daily with breakfast to help with behavioral side-effects of Keppra Continue Keppra 500 mg twice a day - I have sent refills I will get a repeat EEG I will see you in about 3 months Simon Solares MD Associate Staff, Epilepsy [facility] February 05, 2022 Office phone: [phone] documented in this encounter [facility] 01-30-2022 Instructions Cristina Olea APRN.CNP - 01/30/2022 12:00 PM EDT ASSESSMENT/PLAN: 1. Seizure (HCC) - ICD9: 780.39, ICD10: R56.9 (primary diagnosis) - Acute, - continue keppra 500 mg twice daily until you see neurology for further evaluation, recommendations, and management. - appt made today for 02/05/[address] Solares 2. Syncope, unspecified syncope type - ICD9: 780.2, ICD10: R55 Cristina Olea APRN.[employer] documented in this encounter [facility] 01-30-2022 History of Presen t illness Narrative This note was created using [employer]oCooriter. Subjective Natali Kulkarni is a 77 year old female here today to review medications. PMH HTN, CAD, HLD, depression, GERD, fibromyalgia, insomnia, chronic pain. She went to [facility] on 12/12/21 for weakness, syncope. Concerns for possible seizures. Pt reports she sitting in her chair at home on 12/12/21 and pt reports her tried to wake her up and she did not respond to him. Reports she was in and out. Reports her family said she had a seizure because her head went back. States she loss control of her bladder. States she could not respond verbally. Taken from hospital discharge: MRI showed no evidence of residual or recurrent Meningioma, mass or acute intracranial abnormality. EEG was abnormal showing focal slowing, sharp and brief runs of LOG HAULER in the left frontotemporal region. Neurology was consulted and was concerned for seizure. She was started on Keppra. She was to follow up with Neurology after hospitalization but pt admits to never making this appt. She was also started on trazodone for sleep. She was discharged home on kepra an is requesting refill. Reports she passed out and fell in September 2021. She stills have tenderness and hematoma left cheek from fall in September. She reports she loss control of bladder at that time as well and states she was told that in September she most likely had seizure at that time too. Hx left side meningioma and craniotomy in 2005. Denies symptoms of seizures or syncope since hospital discharge. Study:CTA Chest W/WO Contrast Date of Exam: 09/12/21 Exam# [id number] Ordering Dr: Gage Willoughby MD STUDY: CTA CHEST REASON FOR EXAM: Female, 76 years old. Back/chest pain. Increasing chest pain since yesterday. RADIATION DOSAGE (If Supplied By Facility): CTDIvol = ( 21.745 ) mGy, DLP = ( 409.95 ) mGycm TECHNIQUE: The examination was performed with the intravenous administration of IV 100mL Isovue-370. Post-processing of the angiographic images was performed, with multiplanar reformation and 3D reconstruction. Individualized dose optimization techniques were used for this CT. COMPARISON: Comparison is made with prior study dated 05/14/2021. ___ FINDINGS: Normal enhancement of the main pulmonary artery and right and left pulmonary arteries. Normal enhancement of the bilateral peripheral pulmonary arteries. There is no demonstrated pulmonary embolism. There is atherosclerotic calcification of the aortic arch with tortuosity. There is no demonstrated aortic dissection. Sternal cerclage wires and vascular clips are present from a prior sternotomy and coronary artery bypass graft procedure (CABG). There are calcifications of the coronary arteries. Normal mediastinum. Normal hilar regions. Normal visualized trachea and bronchi. The lungs are well expanded. Patchy bibasilar pulmonary infiltrates. This is worse at the right lung base. Mild increased markings in the right middle lobe. Normal pleura. Normal chest wall structures. There are degenerative changes of thoracic spine. Normal visualized upper abdomen. ___ CT/CTA Chest W/WO Contrast IMPRESSION: No evidence of pulmonary embolism. Bibasilar pulmonary infiltrates worse on the right side. Mild increased markings in the right middle lobe. STUDY: CT BRAIN WITHOUT CONTRAST REASON FOR EXAM: Female, 76 years old. trauma suspect bleed RADIATION DOSAGE (If Supplied By Facility): CTDIvol = ( 44.99 ) mGy, DLP = ( 779.24 ) mGycm TECHNIQUE: Transaxial CT imaging of the brain was performed without administration of intravenous contrast material. Individualized dose optimization techniques were used for this CT. COMPARISON: No relevant priors. ___ FINDINGS: Moderate hematoma about the left orbit. Healed left temporal craniotomy. There is mild cerebral atrophy with widening of the extra-axial spaces and ventricular dilatation. There are areas of decreased attenuation within the white matter tracts of the supratentorial brain, consistent with microvascular disease changes. Normal basal ganglia and thalami. Normal brainstem. Normal cerebellum. There is no intracranial hemorrhage. There are no findings of an acute ischemic infarction. Normal visualized paranasal sinuses. STUDY: CT CERVICAL SPINE WITHOUT CONTRAST REASON FOR EXAM: Female, 76 years old. Pain status post trauma RADIATION DOSAGE (If Supplied By Facility): CTDIvol = ( 23.38 ) mGy, DLP = ( 413.07 ) mGycm TECHNIQUE: High resolution transaxial imaging was performed without contrast material. Sagittal and coronal images were reconstructed. Individualized dose optimization techniques were used for this CT. COMPARISON: None ___ FINDINGS: Normal craniovertebral junction. There is hypertrophy of the transverse ligament of the atlas with mild posterior displacement of the superior and inferior longitudinal fibers of the cruciform ligament, producing minimal ventral thecal sac flattening, but without cervical cord impingement. There are mild degenerative changes in the anterior atlantoaxial articulation. Normal odontoid process. Normal cervical lordosis. Normal vertebral bodies and posterior osseous elements. C2-3: 2 mm of anterolisthesis of C2 on C3. No spinal stenosis or neural foraminal stenosis. C3-4: Mild broad disc osteophyte complex and bilateral uncovertebral hypertrophy produces mild spinal stenosis and mild bilateral neural foraminal stenosis. C4-5: Moderate broad disc osteophyte complex and bilateral hypertrophy produces moderate spinal stenosis and moderate bilateral neural foraminal stenosis. C5-6: Mild broad disc osteophyte complex with a glucose disc space with mild spinal stenosis but no neural foraminal stenosis. C6-7: Moderate broad disc osteophyte complex and bilateral adrenal hypertrophy produces moderate spinal stenosis and moderate bilateral neural foraminal stenosis. C7-T1: Normal endplates. Normal disc height and morphology. Normal central canal and intervertebral neuroforamina. Normal visualized soft tissue structures. ___ CT/Spine Cervical without Contras IMPRESSION: No acute fracture or subluxation. EXAMINATION/TECHNIQUE: X-RAY - XR Chest 2 Views COMPARISON: 07/26/2020. FINDINGS: The lungs are clear. Sternal cerclage wires and vascular clips are present from a prior sternotomy and coronary artery bypass graft procedure (CABG). Tortuous and calcified thoracic aorta. The heart is borderline enlarged. No pleural effusion or pneumothorax. No acute osseous abnormalities. RAD/Chest PA and Lateral IMPRESSION: No acute radiographic abnormalities. STUDY: CT BRAIN WITHOUT CONTRAST REASON FOR EXAM: Female, 76 years old. Head injury RADIATION DOSAGE (If Supplied By Facility): CTDIvol = ( 44.99 ) mGy, DLP = ( 748.3 ) mGycm TECHNIQUE: Transaxial CT imaging of the brain was performed without administration of intravenous contrast material. Individualized dose optimization techniques were used for this CT. COMPARISON: No relevant priors. ___ FINDINGS: Normal soft tissue structures. Status post left frontotemporal craniotomy. Mild bilateral hyperostosis frontalis interna essentially normal anatomic variant in elderly female patients. Mild cortical and central atrophy. Moderate chronic microvascular ischemic change periventricular white matter. There is encephalomalacia in the inferior left frontal lobe. This is likely secondary to prior craniotomy for reported resection of benign brain neoplasm in 2005. Encephalomalacia measures 2.08 cm transverse by 1.8 cm AP by 1.6 cm craniocaudal. There are small dystrophic calcifications in the medial lentiform nuclei bilaterally likely age related. There is no intracranial hemorrhage. There are no findings of an acute ischemic infarction. Normal visualized paranasal sinuses. ___ CT/Brain/Head without Contrast IMPRESSION: No acute changes. Status post left frontotemporal craniotomy. Inferior left frontal encephalomalacia 2.08 cm transverse by 1.8 cm AP by transverse by 1.06 cm craniocaudal likely secondary to prior craniotomy. Mild cortical and central atrophy. Mild hyperostosis frontalis interna. Dystrophic calcifications basal ganglia bilaterally likely age-related. Electronically Signed: Joseph Linda MD at 16:34 EDT , CC: HENRIK Olea; Dr. Ruddy Logan, DO ~ Review of Systems Constitutional: Negative for chills, fatigue and fever. Respiratory: Negative for cough, shortness of breath and wheezing. Cardiovascular: Negative for chest pain, palpitations and leg swelling. Genitourinary: Positive for dysuria. Negative for difficulty urinating, frequency and urgency. Vaginal itching. Pt thinks she has a yeast infection. Musculoskeletal: Positive for arthralgias. Generalized aches. Neurological: Positive for dizziness. Negative for seizures, syncope, light-headedness and headaches. Reports dizziness continues mainly when walking outside Reports episodic. Reports if she moves to fast. Psychiatric/Behavioral: Negative for dysphoric mood and suicidal ideas. The patient is not nervous/anxious. Objective BP 138/78 (BP Site: Left Arm, BP Position: Sitting, BP Cuff Size: Regular Adult) Pulse 68 Temp 36.8 C (98.2 F) (Oral) Resp 18 Ht 162.6 cm (5' 4 ) Wt 79.2 kg (174 lb 9.6 oz) SpO2 97% BMI 29.97 kg/m 01/30/22 1056 01/30/22 1140 BP: 138/78 142/68 BP Site: Left Arm BP Position: Sitting BP Cuff Size: Regular Adult Pulse: 68 Resp: 18 Temp: 36.8 C (98.2 F) TempSrc: Oral SpO2: 97% Weight: 79.2 kg (174 lb 9.6 oz) Height: 162.6 cm (5' 4 ) Physical Exam Vitals and nursing note reviewed. Constitutional: General: She is not in acute distress. Appearance: Normal appearance. She is not ill-appearing. HENT: Head: Normocephalic and atraumatic. Cardiovascular: Rate and Rhythm: Normal rate and regular rhythm. Pulses: Normal pulses. Heart sounds: Normal heart sounds. Pulmonary: Effort: Pulmonary effort is normal. Breath sounds: Normal breath sounds. Musculoskeletal: Cervical back: Normal range of motion and neck supple. Skin: General: Skin is warm and dry. Neurological: Mental Status: She is alert and oriented to person, place, and time. Cranial Nerves: Cranial nerves 2-12 are intact. Sensory: Sensation is intact. Motor: Motor function is intact. Coordination: Coordination is intact. Gait: Gait is intact. Psychiatric: Mood and Affect: Mood normal. Behavior: Behavior normal. Thought Content: Thought content normal. Judgment: Judgment normal. Office Visit on 01/30/2022 Component Date Value Ref Range Status GLUCOSE UA (POCT) 01/30/2022 Negative Negative mg/dL Final BILIRUBIN UA (POCT) 01/30/2022 Negative Negative Final KETONE UA (POCT) 01/30/2022 Negative Negative mg/dL Final SPECIFIC GRAVITY UA (POCT) 01/30/2022 1.020 1.005 - 1.030 Final HEMOGLOBIN/BLOOD UA (POCT) 01/30/2022 Negative Negative Final PH UA (POCT) 01/30/2022 5.0 4.5 - 8.0 Final PROTEIN UA (POCT) 01/30/2022 Negative Negative mg/dL Final UROBILINOGEN UA (POCT) 01/30/2022 0.2 Normal E.U./dL Final NITRITE UA (POCT) 01/30/2022 Negative Negative Final LEUKOCYTES UA (POCT) 01/30/2022 Negative Negative Final COLOR UA (POCT) 01/30/2022 Yellow Final CLARITY UA (POCT) 01/30/2022 Clear Final ASSESSMENT/PLAN: 1. Seizure (HCC) - ICD9: 780.39, ICD10: R56.9 (primary diagnosis) - Acute, Seizure most likely cause of pts symptoms per Marisol discharge. Pt denies any seizure activity since discharge. She has been unable to schedule an appt with Neuro for follow up. We did make pt an appt with Neuro next week. - continue keppra 500 mg twice daily until you see neurology for further evaluation, recommendations, and management. - appt made today for 02/05/[address] Solares 2. Syncope, unspecified syncope type - ICD9: 780.2, ICD10: R55 - acute, see above probable seizure 3. Dysuria - ICD9: 788.1, ICD10: R30.0 acute - UA negative. Will treat for vaginal yeast infection with diflucan x1 - UA DIP B/O - FLUCONAZOLE 150 MG TABLET 4. Vaginal itching - ICD9: 698.1, ICD10: N89.8 - see above - FLUCONAZOLE 150 MG TABLET Cristina Olea, IZA.Aria Olea APRN.GREGORY Kee spent a total of 55 minutes on the date of the service which included preparing to see the patient, [id number] patient care, completing clinical documentation, obtaining and/or reviewing separately obtained history, performing a medically appropriate examination, counseling and educating the patient/family/caregiver, ordering medications, tests, or procedures, and care coordination (not separately reported). 55 documented in this encounter [facility] 2022 Miscellaneous Notes Pt has not made apt with Neurologist I called her and let her know she needs to make apt Pharmacy calls in requesting the following refill(s): Requested Prescriptions Pending Prescriptions Disp Refills levETIRAcetam (KEPPRA) 500 mg tablet [Pharmacy Med Name: LEVETIRACETAM 500 MG TABLET] 30 tablet 0 Sig: TAKE 1 TABLET BY MOUTH TWICE A DAY Emelia Michaels MA documented in this encounter [facility] 01-15-2022 Miscellaneous Notes Patient called to schedule appointment with Dr. Vincent. Informed patient that he is scheduled out past June and that his nurse practitioner does not treat her condition. I [facility] with [facility] to call the patient to discuss provider options per the scheduling questionnaire. I also provided the patient the phone number. Patient reports only having two days remaining of her Keppra and would like to request another refill. Please contact patient to advise. documented in this encounter [facility] 11-28-2021 History of Presen t illness Narrative SUBJECTIVE: Natali Kulkarni is a 76 year old female who presents for [facility] HTN, CAD, HLD, depression, GERD, fibromyalgia, insomnia, chronic pain. Patient denies changes in health since last office visit. Reports feeling well. Denies concerns or complaints today. I reviewed her past medical, surgical, social, and family histories today and updated chart. Allergies, chronic medications, and supplements were also reviewed and her list is now up to date. HTN: Ms. Kulkarni indicates that she is feeling well and denies any symptoms referable to elevated blood pressure. Specifically denies headache, palpitations, dyspnea, peripheral edema, claudication symptoms, orthopnea, fatigue and PND. Occasional CP and will take nitro when needed which is effective. Patient denies any side effects of her medication(s) and is compliant with their regimen. She does not check BP's generally. Natali has limited mobility and can not participate in aerobic exercise. She watches her diet for sodium, low fat and low cholesterol some of the time. She is taking metoprolol 50 mg ER daily, Isor and losartan 100 mg daily. Last 3 Encounter BP Readings: Date: BP: 10/08/2021 128/78 09/11/2021 167/78 09/11/2021 138/82 CAD: History of CAD with triple bypass in 2006. She is switching from Dr Smith to Dr Flores. They are in same practice. Hx of cardiac stents and PCI with thrombectomy and POBA of ISR- mid LCx stent 05/02/19. She was last seen 12/16/19 by SPENSER Ortega at Dr Schneider office. She had complaints of CP and underwent heart catherization on 09/28/19 with FFR evaluation that did not require intervention. Her Ranexa was increased to 1000 mg twice daily. Pt reports since her chest pain and shoulder pain have resolved. She continues on Bilinta, zetia, Insomnia: Chronic, stable. She no longer taking Lunesta. She reports she does not sleep. She was on Lunesta for years but reports she did not sleep with this either. She reports her pain keeps her up. When her pain is better controlled she sleeps better. Depression: She is taking celexa 20 mg daily. States she continues feeling depressed but feels it is normal. She reports she worries about her son who suffers from depression. States she has a lot of pain which contributes to her depression. Denies thoughts of suicide. She declines counseling. Chronic pain/neuropathy: Low back, bilateral leg, hip, neck, shoulder pain, and chest spasm. She is seeing pain management, Dr Charles. She seen him last month and is due on 01/24/2020. She reports she goes every 2 months. Reports she is tolerating the medicaiton well. He prescribes her percocet and muscle relaxer. She reports she saw him on 7/25/19 and he increased her gabapentin to 300 mg 3 times a day. She is setting up appt to get injection into her right foot for her plantar fasciitis. She is also using topical diclofenac cream for her foot which she is not sure it is helping yet. She has seen Dr Ishaan amezquita in past in 2016 he recommended PT but she refuses this states it makes her symptoms worse. She most recently seen ortho Dr Beth Jerez in [facility] who ordered XR. Reports she had xray completed and reported she was told she has arthritis. she continues with shoulder pain and refuses PT or seeing ortho for this. Preventative: pt is due for her mammogram and bone density. Bone density 2017 showed osteopenia, She had her Colonoscopy in 2014. Repeat in [address] Smith will not allow her to go off blood thinner for colonscopy. But after April she may be able to go off her blood thinner. She did see Dr Fitzpatrick in [place]. Pt does not exercise, she does not smoke; quit 2006. Advanced directives: pt does not have LW or DPOA-HC. She is interested in both documents. Some elements of above documentation were copied from my progress note of 01/16/20 and have been reexamined and updated where appropriate. All elements reflect the current assessment and medical decision making today . PAST MEDICAL HISTORY Diagnosis Date Arthritis Benign neoplasm of cerebral meninges (HCC) 2006 Craniotomy CAD (coronary artery disease) 08/22/2006 NSTEMI. Calculus of gallbladder without mention of cholecystitis or obstruction 12/01/2005 Contact dermatitis and other eczema, due to unspecified cause 04/25/2005 Vulvar dermatitis Depressive disorder, not elsewhere classified 04/25/2005 Diaphragmatic hernia without mention of obstruction or gangrene Diverticulosis of colon (without mention of hemorrhage) and diverticulitis in 09/25 Esophageal reflux Esophagitis, unspecified Fibromyalgia GERD (gastroesophageal reflux disease) Heart attack (HCC) Muscle disease Other and unspecified disc disorder of lumbar region 04/25/2005 Dr. 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 EGD TRANSORAL BIOPSY SINGLE/MULTIPLE 04/17/09 ESOPHAGOGASTRODUODENOSCOPY TRANSORAL DIAGNOSTIC 12/10/2005 EGD ESOPHAGOGASTRODUODENOSCOPY TRANSORAL DIAGNOSTIC 01/08/2012 EGD ESOPHAGOGASTRODUODENOSCOPY TRANSORAL DIAGNOSTIC 12/14/14 EGD ESOPHAGOGASTRODUODENOSCOPY TRANSORAL DIAGNOSTIC 02/20/16 EGD mac escobar [facility] out pt GASTROESOPHAG REFLX TEST W/TELEMTRY PH ELTRD 04/17/2009 HEART SURGERY HX CABG x 3 LAPAROSCOPY SURG CHOLECYSTECTOMY 01/2006 Cholecystectomy, lap LEFT HEART CATH,PERCUTANEOUS 08/2006 Post CABG, repeat cath. LIG/TRNSXJ FLP TUBE ABDL/VAG APPR UNI/BI MRI 08/01/2009 on head previous brain tumor 2005 PAST SURGICAL HISTORY OF rt side of head SKIN CANCER PAST SURGICAL HISTORY OF spine surgery- 2 lower back and one neck PAST SURGICAL HISTORY OF 06/12/2006 Left craniotomy, Meningioma, [place] [facility] VAGINAL HYSTERECTOMY UTERUS 250 GM/< 1982 approx Social History Tobacco Use Smoking status: Former Smoker Packs/day: 0.50 Years: 40.00 Pack years: 20.00 Types: Cigarettes Quit date: 08/20/2006 Years since quittin.2 Smokeless tobacco: Never Used Tobacco comment: Quit 10 years ago 08/22/06 Vaping Use Vaping Use: Never used Substance Use Topics Alcohol use: No Drug use: No Family history reviewed. ALLERGIES Allergen Reactions Lisinopril Anaphylaxis cough Justo Inhibitors Unknown Amlodipine Unknown fatigue Atenolol Unknown bradycardia Atorvastatin Unknown myalgias Codeine GI Upset Ezetimibe Unknown myalgia Ibuprofen GI Upset Midrin [Isometh-Dic* Intolerance Shakey, anxious Pitavastatin Unknown myalgia Pravastatin Unknown myalgia Ranolazine Unknown Dry mouth Rosuvastatin Calcium Unknown myalgia Simvastatin Unknown myalgia Spironolactone Unknown Sulfa (Sulfonamide * Swelling Topamax [Topiramate] Other: See Comments dizziness Current Outpatient Medications Medication Sig citalopram (CELEXA) 20 mg tablet Take 1 tablet by mouth once daily. nystatin (MYCOSTATIN) cream Apply to affected area twice daily. benzonatate (TESSALON PERLES) 100 mg capsule Take 1 capsule by mouth three times daily as needed for cough. docusate sodium (COLACE) 100 mg capsule AT BEDTIME metoprolol succinate ER (TOPROL XL) 50 mg 24 hr tablet albuterol HFA (PROAIR HFA) 90 mcg/actuation inhaler Inhale 2 Puffs as instructed every 4 hours as needed. predniSONE (DELTASONE) 20 mg tablet Take 2 tablets by mouth once daily. ranolazine ER (RANEXA) 500 mg 12 hr tablet Take 500 mg by mouth twice daily. zoster vaccine, recombinant, adjuvanted, (SHINGRIX) 50 mcg/0.5 mL injection Inject 0.5 mL intramuscularly now and repeat 2nd dose in 2-6 months hydrOXYzine HCl (ATARAX) 25 mg tablet Take 1 tablet by mouth daily at bedtime. As needed for itching amLODIPine (NORVASC) 10 mg tablet Take 0.5 tablets by mouth once daily. furosemide (LASIX) 20 mg tablet Take 1 tablet by mouth as needed. ezetimibe (ZETIA) 10 mg tablet Take 10 mg by mouth once daily. pantoprazole sodium (PROTONIX ORAL) Take 20 mg by mouth once daily. ticagrelor (BRILINTA) 90 mg tablet Take 90 mg by mouth twice daily. fexofenadine (NAZIA) 60 mg tablet TAKE 1 TABLET BY MOUTH EVERY DAY gabapentin (NEURONTIN) 100 mg capsule Take 300 mg by mouth three times daily. Per pain management Doctor estradiol (ESTRACE) 0.01 % (0.1 mg/gram) vaginal cream Use 1 g vaginally twice a week. oxyCODONE-acetaminophen (PERCOCET) 7.5-325 mg tablet nitroglycerin sublingual (NITROQUICK) 0.4 mg SL tablet Dissolve 0.4 mg under the tongue every 5 minutes as needed. losartan (COZAAR) 100 mg tablet Take 100 mg by mouth once daily. Aspirin 81 mg ORAL Tab Take one(1) tablet daily. No current facility-administered medications for this visit. Feeling nervous, anxious, or on edge 2 Over half the days Not being able to stop or control worrying 3 Nearly every day Worrying too much about different things 2 Over half the days Trouble relaxing 2 Over half the days Being so restless that it's hard to sit still 2 Over half the days Being easily annoyed or irritable 3 Nearly every day Feeling afraid as if something awful might happen 0 Not at all sure JUAN-7 Anxiety Score 14 If you checked off any problems, how difficult have these problems made it for you to do your work, take care of things at home, or get along with other people? Somewhat difficult THE LAST 2 WEEKS, HAVE YOU BEEN BOTHERED BY ANY OF THE FOLLOWING? - Little interest or pleasure in doing things 2 MORE THAN HALF THE DAYS Feeling down, depressed, or hopeless 3 Trouble falling or staying asleep, or sleeping too much 2 Feeling tired or having little energy 3 Poor appetite or overeating 0 Feeling bad yourself-you are a failure or have let yourself or others 2 Trouble concentrating, like reading the paper or watching TV 0 Moving/speaking slowly (others notice) OR being more fidgety/restless 0 Thoughts that you would be better off or of hurting yourself 0 PHQ TOTAL SCORE = 12 PHQ problems effect on difficulty of work, home, and social activity: 2 - SOMEWHAT DIFFICULT Review of Systems Constitutional: Negative for chills, diaphoresis, fever, malaise/fatigue and weight loss. HENT: Negative. Negative for congestion, ear pain, sore throat and tinnitus. Eyes: Negative for blurred vision, photophobia and pain. Respiratory: Negative for cough, sputum production, shortness of breath and wheezing. Cardiovascular: Positive for chest pain. Negative for palpitations, orthopnea and leg swelling. Episodic no change, will use nitro as needed Gastrointestinal: Negative. Negative for abdominal pain, blood in stool, constipation, diarrhea, heartburn, melena, nausea and vomiting. Genitourinary: Negative. Negative for frequency and urgency. Musculoskeletal: Positive for joint pain and myalgias. Negative for falls and neck pain. Chronic pain Increase right hip pain, she is scheduled for injection on 12/05/21 with pain management She is taking percocet as needed. ~1-2/day. Skin: Negative. Negative for itching. Neurological: Negative. Negative for dizziness, tingling, tremors, sensory change, focal weakness, weakness and headaches. Reports she feels unsteady on her feet Endo/Heme/Allergies: Negative. Negative for environmental allergies. Does not bruise/bleed easily. Psychiatric/Behavioral: Positive for depression. Negative for substance abuse. The patient has insomnia. The patient is not nervous/anxious. Chronic, not well controlled 11/28/21 1301 BP: 128/70 BP Site: Right Arm BP Position: Sitting BP Cuff Size: Regular Adult Pulse: 64 Resp: 18 Temp: 36.8 C (98.2 F) TempSrc: Oral SpO2: 98% Weight: 79.4 kg (175 lb) Height: 162.6 cm (5' 4 ) Physical Exam Vitals and nursing note reviewed. Constitutional: General: She is not in acute distress. Appearance: Normal appearance. She is not diaphoretic. HENT: Head: Normocephalic and atraumatic. Right Ear: External ear normal. Left Ear: External ear normal. Nose: Nose normal. Mouth/Throat: Pharynx: No oropharyngeal exudate. Eyes: General: Lids are normal. No scleral icterus. Right eye: No discharge. Left eye: No discharge. Conjunctiva/sclera: Conjunctivae normal. Pupils: Pupils are equal, round, and reactive to light. Neck: Vascular: Normal carotid pulses. No carotid bruit. Cardiovascular: Rate and Rhythm: Normal rate and regular rhythm. Pulses: Normal pulses. Carotid pulses are 2+ on the right side and 2+ on the left side. Dorsalis pedis pulses are 2+ on the right side and 2+ on the left side. Heart sounds: Normal heart sounds, S1 normal and S2 normal. No murmur heard. No friction rub. No gallop. Pulmonary: Effort: Pulmonary effort is normal. No accessory muscle usage or respiratory distress. Breath sounds: Normal breath sounds. No decreased breath sounds, wheezing, rhonchi or rales. Chest: Chest wall: No tenderness. Abdominal: General: Bowel sounds are normal. There is no distension. Palpations: Abdomen is soft. Tenderness: There is no abdominal tenderness. Musculoskeletal: Cervical back: Normal range of motion and neck supple. Thoracic back: Decreased range of motion. Lumbar back: Tenderness present. Decreased range of motion. Negative right straight leg raise test and negative left straight leg raise test. Right lower leg: No edema. Left lower leg: No edema. Skin: General: Skin is warm and dry. Coloration: Skin is not pale. Findings: No erythema or rash. Nails: There is no clubbing. Neurological: Mental Status: She is alert and oriented to person, place, and time. Cranial Nerves: Cranial nerves are intact. No facial asymmetry. Sensory: Sensation is intact. Motor: Motor function is intact. No abnormal muscle tone. Coordination: Coordination is intact. Coordination normal. Gait: Gait is intact. Deep Tendon Reflexes: Reflexes are normal and symmetric. Psychiatric: Attention and Perception: Attention and perception normal. Mood and Affect: Mood and affect normal. Speech: Speech normal. Behavior: Behavior normal. Behavior is cooperative. Thought Content: Thought content normal. Cognition and Memory: Cognition and memory normal. Judgment: Judgment normal. ASSESSMENT/PLAN: 1. Wellness examination - ICD9: V70.0, ICD10: Z00.00 (primary diagnosis) - Counseled on healthy diet and regular exercise - Calcium intake with supplements or by diet of 1000 mg/day for under 50, 7683-0223 mg/day for 50+ - Discussed need and benefit for weight loss. BMI 30.04 kg/(m^2) - Mammogram ordered - exam recommended once yearly - Bone mineral density ordered - Depression screening tool completed and reviewed with patient. Based on score and interview, patient is already diagnosed with depression and recommended counseling/psychology referral.- Declined - Follow up for annual exam in one year 2. Essential hypertension - ICD9: 401.9, ICD10: I10 - good control - Continue current medication(s) - Encouraged dietary sodium restriction/DASH diet - Recommended regular aerobic exercise. - Recommend home blood pressure monitoring, to bring results in on next visit - Discussed need and benefit for weight loss. - Reviewed risks of HTN and principles of treatment - Goal of BP <130/80 - Recommended no refined sugar, low refined starch, healthy oil intake (olive oil), healthy protein (fish) along the lines of the Mediterranean diet. - CBC - COMP METABOLIC PANEL 3. Episode of recurrent major depressive disorder, unspecified depression episode severity (HCC) - ICD9: 296.30, ICD10: F33.9 - Chronic stable. Continue celexa 20 mg daily. Pt is at max dose of Celexa for older adult >60 yo. Pt declines counseling. Support provided. encouraged to call if persists or worsens. - CITALOPRAM 20 MG TABLET 4. Fibromyalgia - ICD9: 729.1, ICD10: M79.7 - Chronic stable - continue follow up with pain mangment 5. Encounter for screening mammogram for malignant neoplasm of breast - ICD9: V76.12, ICD10: Z12.31 - ISIDRO SCREENING 6. Post-menopausal - ICD9: V49.81, ICD10: Z78.0 - DXA-AXIAL SKELETON 7. Osteopenia of multiple sites - ICD9: 733.90, ICD10: M85.89 - DXA-AXIAL SKELETON 8. 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 Vitamin D deficiency - ICD9: 268.9, ICD10: E55.9 - VITAMIN D 25 HYDROXY 10. Screening for thyroid disorder - ICD9: V77.0, ICD10: Z13.29 - TSH BLD Cristina Olea APRN.VENEER DRIER TAILER documented in this encounter [facility] 11-28-2021 Instructions Cristina Olea APRN.VENEER DRIER TAILER - 11/28/2021 12:55 PM EDT BONE MINERAL DENSITY PATIENT INSTRUCTIONS ========= Bone mineral density testing measures the amount of calcium in certain parts of your bones. This information determines how strong your bones are. The test is used to detect osteoporosis, a disease in which the bone's mineral content and density are low, increasing a person's risk of fractures. The lumbar spine (lower back) and the hip are the skeletal sites usually examined. For the test, remember that: 1. You cannot take this test if you are . 2. Eat a normal diet on the day of the test. 3. Take your medications as you normally would. 4. DO NOT take calcium supplements (such as Tums) for 24 hours before the test. 5. On the day of the test, leave valuables (jewelry or credit cards) at home. 6. The test should be performed prior to oral, rectal or IV contrast studies, or at least 7 days after any of these studies. For the test, you may be asked to wear a hospital gown. You will lie on your back, on a padded table, in a comfortable position. Generally, you can resume your usual activities immediately. ASSESSMENT/PLAN: 1. Wellness examination - ICD9: V70.0, ICD10: Z00.00 (primary diagnosis) - Counseled on healthy diet and regular exercise - Calcium intake with supplements or by diet of 1000 mg/day for under 50, 3318-4123 mg/day for 50+ - Discussed need and benefit for weight loss. BMI 30.04 kg/(m^2) - Mammogram ordered - exam recommended once yearly - Bone mineral density ordered - Depression screening tool completed and reviewed with patient. Based on score and interview, patient is already diagnosed with depression and recommended counseling/psychology referral.- Declined - Follow up for annual exam in one year 2. Essential hypertension - ICD9: 401.9, ICD10: I10 - good control - Continue current medication(s) - Encouraged dietary sodium restriction/DASH diet - Recommended regular aerobic exercise. - Recommend home blood pressure monitoring, to bring results in on next visit - Discussed need and benefit for weight loss. - Reviewed risks of HTN and principles of treatment - Goal of BP <130/80 - Recommended no refined sugar, low refined starch, healthy oil intake (olive oil), healthy protein (fish) along the lines of the Mediterranean diet. - CBC - COMP METABOLIC PANEL 3. Episode of recurrent major depressive disorder, unspecified depression episode severity (HCC) - ICD9: 296.30, ICD10: F33.9 - Chronic stable. Continue celexa 20 mg daily. Pt is at max dose of Celexa for older adult >60 yo. Pt declines counseling. Support provided. encouraged to call if persists or worsens. - CITALOPRAM 20 MG TABLET 4. Fibromyalgia - ICD9: 729.1, ICD10: M79.7 - Chronic stable - continue follow up with pain mangment 5. Encounter for screening mammogram for malignant neoplasm of breast - ICD9: V76.12, ICD10: Z12.31 - ISIDRO SCREENING 6. Post-menopausal - ICD9: V49.81, ICD10: Z78.0 - DXA-AXIAL SKELETON 7. Osteopenia of multiple sites - ICD9: 733.90, ICD10: M85.89 - DXA-AXIAL SKELETON 8. 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 Vitamin D deficiency - ICD9: 268.9, ICD10: E55.9 - VITAMIN D 25 HYDROXY 10. Screening for thyroid disorder - ICD9: V77.0, ICD10: Z13.29 - TSH BLD Cristina Olea APRN.GREGORY documented in this encounter [facility] 10-27-2021 Miscellaneous Notes Please let pt know I sent in rx for her celexa. She also needs to make a routine visit. I have not seen her for a routine visit since december last year Called pt back let her know that she needs to continue with the Cymbalta pt stated she stopped that 4 days ago. Pt is wanting to know if you would be willing to send in a month supply of the Celexa till she can get an apt Emelia Michaels MA Called pt stated pt wasn't available she was napping to call her back in about 30 min Emelia Michaels MA Encourage her to continue with Cymbalta at this time. It is good for chronic pain and may help her. She can come in to discuss Pt called while she was in the hospital they changed her from her Celexa to Cymbalta pt doesn't like the Cymbalta she is exteremly tired and doesn't feel like its helping she would like to back to her Celexa 20 mg Emelia Michaels MA documented in this encounter [facility] 10-10-2021 Miscellaneous Notes Faxed order to beena Michaels MA Spoke to Beena multiple times regarding d/c pts O2 they were going to send a form spoke to gentlemen today there is no form just need an order to d/c Emelia Michaels MA documented in this encounter [facility] 10-08-2021 Note HNO ID: [id number] Author: Cristina Olea APRN.[employer] TA[employer]ER Service: ? Author Type: Nurse Practitioner Type: Progress Notes Filed: 10/08/2021 4:31 PM Note Text: This note was created using [email or web address]. Subjective Natali Kulkarni is a 76 year old female here today for hospital and ER follow up. She went to [facility] on 09/18/21 and was admitted for pneumonia. She was treated and discharged on 09/20/21. She went to [facility] on 10/02/21 for complaints of fall and injury to her head. She reports she got up to the bathroom during night and she passed out falling and hitting her head. She sustained laceration to left eye. One suture was placed. This needs removed today. She had Ct of head which showed no acute bleeding. She again went back to [facility] on 10/06/21 due to bleeding in white of her eye. She reports everything was okay and they repeated the ct which she reports was normal. Pt reports continued dry cough since hospitalization. Denies fever, chills, SALAZAR, dizziness, change or loss of vision, nausea, vomiting, diarrhea, SOB, CP, wheezing. ALLERGIES Allergen Reactions - Lisinopril Anaphylaxis cough - Justo Inhibitors Unknown - Amlodipine Unknown fatigue - Atenolol Unknown bradycardia - Atorvastatin Unknown myalgias - Codeine GI Upset - Ezetimibe Unknown myalgia - Ibuprofen GI Upset - Midrin [Isometh-Dic* Intolerance Shakey, anxious - Pitavastatin Unknown myalgia - Pravastatin Unknown myalgia - Ranolazine Unknown Dry mouth - Rosuvastatin Calcium Unknown myalgia - Simvastatin Unknown myalgia - Spironolactone Unknown - Sulfa (Sulfonamide * Swelling - Topamax [Topiramate] Other: See Comments dizziness Current Outpatient Medications Medication Sig Dispense Refill - docusate sodium (COLACE) 100 mg capsule AT BEDTIME - DULoxetine (CYMBALTA) 30 mg capsule DAILY - metoprolol succinate ER (TOPROL XL) 50 mg 24 hr tablet - albuterol HFA (PROAIR HFA) 90 mcg/actuation inhaler Inhale 2 Puffs as instructed every 4 hours as needed. 18 g 3 - ranolazine ER (RANEXA) 500 mg 12 hr tablet Take 500 mg by mouth twice daily. - hydrOXYzine HCl (ATARAX) 25 mg tablet Take 1 tablet by mouth daily at bedtime. As needed for itching 90 tablet 1 - amLODIPine (NORVASC) 10 mg tablet Take 0.5 tablets by mouth once daily. - furosemide (LASIX) 20 mg tablet Take 1 tablet by mouth as needed. - ezetimibe (ZETIA) 10 mg tablet Take 10 mg by mouth once daily. - pantoprazole sodium (PROTONIX ORAL) Take 20 mg by mouth once daily. - ticagrelor (BRILINTA) 90 mg tablet Take 90 mg by mouth twice daily. - fexofenadine (NAZIA) 60 mg tablet TAKE 1 TABLET BY MOUTH EVERY DAY 90 tablet 1 - gabapentin (NEURONTIN) 100 mg capsule Take 300 mg by mouth three times daily. Per pain management Doctor - estradiol (ESTRACE) 0.01 % (0.1 mg/gram) vaginal cream Use 1 g vaginally twice a week. 8 g 11 - oxyCODONE-acetaminophen (PERCOCET) 7.5-325 mg tablet - nitroglycerin sublingual (NITROQUICK) 0.4 mg SL tablet Dissolve 0.4 mg under the tongue every 5 minutes as needed. - losartan (COZAAR) 100 mg tablet Take 100 mg by mouth once daily. - Aspirin 81 mg ORAL Tab Take one(1) tablet daily. 0 - predniSONE (DELTASONE) 20 mg tablet Take 2 tablets by mouth once daily. 10 tablet 0 - zoster vaccine, recombinant, adjuvanted, (SHINGRIX) 50 mcg/0.5 mL injection Inject 0.5 mL intramuscularly now and repeat 2nd dose in 2-6 months 1 Each 0 No current facility-administered medications for this visit. ACTIVE PROBLEM LIST Essential Hypertension Other and Unspecified Disc Disorder of Lumbar Region Major depressive disorder Irritable Bowel Syndrome Headache(784.0) Cervicalgia AORTOCORONARY BYPASS STATUS Pain in Joint, Lower Leg Esophageal Reflux Unspecified Symptom Associated With Female Genital Organs Other Specified Disorder of Bladder Postmenopausal Atrophic Vaginitis Cystocele, Midline Arthritis Fibromyalgia Prolapse of Vaginal Vault After Hysterectomy Midline Cystocele Mixed Incontinence Myalgia of Pelvic Floor Muscle Hypertonicity Atrophic Vaginitis Lichen Sclerosus Et Atrophicus Feeling of Incomplete Bladder Emptying Episode of Recurrent Major Depressive Disorder (Hcc) PAST MEDICAL HISTORY Diagnosis Date - Arthritis - Benign neoplasm of cerebral meninges (HCC) 2005 Craniotomy - CAD (coronary artery disease) 08/22/2006 NSTEMI. - Calculus of gallbladder without mention of cholecystitis or obstruction 12/01/2005 - Contact dermatitis and other eczema, due to unspecified cause 04/25/2005 Vulvar dermatitis - Depressive disorder, not elsewhere classified 04/25/2005 - Diaphragmatic hernia without mention of obstruction or gangrene - Diverticulosis of colon (without mention of hemorrhage) and diverticulitis in 09/25 - Esophageal reflux - Esophagitis, unspecified - Fibromyalgia - GERD (gastroesophageal reflux disease) - Heart attack (HCC) - Muscle dise (more content not included)... [facility] 10-08-2021 Instructions Cristina Olea, SUPER[employer]OR [employer].[facility] - 10/08/2021 12:27 PM EDT ASSESSMENT/PLAN: 1. Facial laceration, subsequent encounter - ICD9: V58.89, 873.40, ICD10: S01.81XD (primary diagnosis) - Acute, s/p fall. 2 sutures removed without difficulty - exam unremarkable, bruises resolving 2. Fall, subsequent encounter - ICD9: V58.89, E888.9, ICD10: W19.XXXD -acute, 3. Pneumonia of both lungs due to infectious organism, unspecified part of lung - ICD9: 483.8, ICD10: J18.9 - acute, lungs today clear. Continues with non productive cough. Will give tessalon perles to help with this. - call if persists or worsens 4. Cough - ICD9: 786.2, ICD10: R05.9 - BENZONATATE 100 MG CAPSULE 5. Candidiasis of breast - ICD9: 112.89, ICD10: B37.89 - NYSTATIN 100,000 UNIT/GRAM TOPICAL CREAM Cristina Olea APRN.[employer]ILER documented in this encounter [facility] 10-08-2021 History of Presen t illness Narrative Images from the original note were not included. This note was created using [email or web address]. Subjective Natali Kulkarni is a 76 year old female here today for hospital and ER follow up. She went to [facility] on 09/18/21 and was admitted for pneumonia. She was treated and discharged on 09/20/21. She went to [facility] on 10/02/21 for complaints of fall and injury to her head. She reports she got up to the bathroom during night and she passed out falling and hitting her head. She sustained laceration to left eye. One suture was placed. This needs removed today. She had Ct of head which showed no acute bleeding. She again went back to [facility] on 10/06/21 due to bleeding in white of her eye. She reports everything was okay and they repeated the ct which she reports was normal. Pt reports continued dry cough since hospitalization. Denies fever, chills, SALAZAR, dizziness, change or loss of vision, nausea, vomiting, diarrhea, SOB, CP, wheezing. ALLERGIES Allergen Reactions Lisinopril Anaphylaxis cough Justo Inhibitors Unknown Amlodipine Unknown fatigue Atenolol Unknown bradycardia Atorvastatin Unknown myalgias Codeine GI Upset Ezetimibe Unknown myalgia Ibuprofen GI Upset Midrin [Isometh-Dic* Intolerance Shakey, anxious Pitavastatin Unknown myalgia Pravastatin Unknown myalgia Ranolazine Unknown Dry mouth Rosuvastatin Calcium Unknown myalgia Simvastatin Unknown myalgia Spironolactone Unknown Sulfa (Sulfonamide * Swelling Topamax [Topiramate] Other: See Comments dizziness Current Outpatient Medications Medication Sig Dispense Refill docusate sodium (COLACE) 100 mg capsule AT BEDTIME DULoxetine (CYMBALTA) 30 mg capsule DAILY metoprolol succinate ER (TOPROL XL) 50 mg 24 hr tablet albuterol HFA (PROAIR HFA) 90 mcg/actuation inhaler Inhale 2 Puffs as instructed every 4 hours as needed. 18 g 3 ranolazine ER (RANEXA) 500 mg 12 hr tablet Take 500 mg by mouth twice daily. hydrOXYzine HCl (ATARAX) 25 mg tablet Take 1 tablet by mouth daily at bedtime. As needed for itching 90 tablet 1 amLODIPine (NORVASC) 10 mg tablet Take 0.5 tablets by mouth once daily. furosemide (LASIX) 20 mg tablet Take 1 tablet by mouth as needed. ezetimibe (ZETIA) 10 mg tablet Take 10 mg by mouth once daily. pantoprazole sodium (PROTONIX ORAL) Take 20 mg by mouth once daily. ticagrelor (BRILINTA) 90 mg tablet Take 90 mg by mouth twice daily. fexofenadine (NAZIA) 60 mg tablet TAKE 1 TABLET BY MOUTH EVERY DAY 90 tablet 1 gabapentin (NEURONTIN) 100 mg capsule Take 300 mg by mouth three times daily. Per pain management Doctor estradiol (ESTRACE) 0.01 % (0.1 mg/gram) vaginal cream Use 1 g vaginally twice a week. 8 g 11 oxyCODONE-acetaminophen (PERCOCET) 7.5-325 mg tablet nitroglycerin sublingual (NITROQUICK) 0.4 mg SL tablet Dissolve 0.4 mg under the tongue every 5 minutes as needed. losartan (COZAAR) 100 mg tablet Take 100 mg by mouth once daily. Aspirin 81 mg ORAL Tab Take one(1) tablet daily. 0 predniSONE (DELTASONE) 20 mg tablet Take 2 tablets by mouth once daily. 10 tablet 0 zoster vaccine, recombinant, adjuvanted, (SHINGRIX) 50 mcg/0.5 mL injection Inject 0.5 mL intramuscularly now and repeat 2nd dose in 2-6 months 1 Each 0 No current facility-administered medications for this visit. ACTIVE PROBLEM LIST Essential Hypertension Other and Unspecified Disc Disorder of Lumbar Region Major depressive disorder Irritable Bowel Syndrome Headache(784.0) Cervicalgia AORTOCORONARY BYPASS STATUS Pain in Joint, Lower Leg Esophageal Reflux Unspecified Symptom Associated With Female Genital Organs Other Specified Disorder of Bladder Postmenopausal Atrophic Vaginitis Cystocele, Midline Arthritis Fibromyalgia Prolapse of Vaginal Vault After Hysterectomy Midline Cystocele Mixed Incontinence Myalgia of Pelvic Floor Muscle Hypertonicity Atrophic Vaginitis Lichen Sclerosus Et Atrophicus Feeling of Incomplete Bladder Emptying Episode of Recurrent Major Depressive Disorder (Hcc) PAST MEDICAL HISTORY Diagnosis Date Arthritis Benign neoplasm of cerebral meninges (HCC) 2006 Craniotomy CAD (coronary artery disease) 08/22/2006 NSTEMI. Calculus of gallbladder without mention of cholecystitis or obstruction 12/01/2005 Contact dermatitis and other eczema, due to unspecified cause 04/25/2005 Vulvar dermatitis Depressive disorder, not elsewhere classified 04/25/2005 Diaphragmatic hernia without mention of obstruction or gangrene Diverticulosis of colon (without mention of hemorrhage) and diverticulitis in 09/25 Esophageal reflux Esophagitis, unspecified Fibromyalgia GERD (gastroesophageal reflux disease) Heart attack (HCC) Muscle disease Other and unspecified disc disorder of lumbar region 04/25/2005 Dr. 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 EGD TRANSORAL BIOPSY SINGLE/MULTIPLE 04/17/09 ESOPHAGOGASTRODUODENOSCOPY TRANSORAL DIAGNOSTIC 12/10/2005 EGD ESOPHAGOGASTRODUODENOSCOPY TRANSORAL DIAGNOSTIC 01/08/2012 EGD ESOPHAGOGASTRODUODENOSCOPY TRANSORAL DIAGNOSTIC 12/14/14 EGD ESOPHAGOGASTRODUODENOSCOPY TRANSORAL DIAGNOSTIC 02/20/16 EGD mac escobar [facility] out pt GASTROESOPHAG REFLX TEST W/TELEMTRY PH ELTRD 04/17/2009 HEART SURGERY HX CABG x 3 LAPAROSCOPY SURG CHOLECYSTECTOMY 01/2006 Cholecystectomy, lap LEFT HEART CATH,PERCUTANEOUS 08/2006 Post CABG, repeat cath. LIG/TRNSXJ FLP TUBE ABDL/VAG APPR UNI/BI MRI 08/01/2009 on head previous brain tumor 2006 PAST SURGICAL HISTORY OF rt side of head SKIN CANCER PAST SURGICAL HISTORY OF spine surgery- 2 lower back and one neck PAST SURGICAL HISTORY OF 06/12/2006 Left craniotomy, Meningioma, [place] [facility] VAGINAL HYSTERECTOMY UTERUS 250 GM/< 1982 approx Social History Tobacco Use Smoking status: Former Smoker Packs/day: 0.50 Years: 40.00 Pack years: 20.00 Types: Cigarettes Quit date: 08/20/2006 Years since quittin.1 Smokeless tobacco: Never Used Tobacco comment: Quit 10 years ago 08/22/06 Vaping Use Vaping Use: Never used Substance Use Topics Alcohol use: No Drug use: No Family History Problem Relation Age of Onset Cancer Mother LUNG , BONE Prostate Cancer Brother Heart Sister M.I. Hypertension Sister Heart Father CVA Review of Systems Constitutional: Negative for activity change, appetite change, chills, fatigue and fever. Eyes: Positive for redness. Negative for photophobia, pain, discharge, itching and visual disturbance. Respiratory: Positive for cough. Negative for chest tightness, shortness of breath and wheezing. Non productive see HPI Cardiovascular: Negative for chest pain, palpitations and leg swelling. Gastrointestinal: Negative for abdominal pain, blood in stool, constipation, diarrhea, nausea and vomiting. Skin: Positive for rash. Reports continued rash under her breasts. Chronic. Reports she was given powder at hospital but hasnt been working. Reports itchy at times. Hematological: Facial bruising due to fall Psychiatric/Behavioral: Negative for dysphoric mood and sleep disturbance. The patient is not nervous/anxious. Objective BP 128/78 (BP Site: Left Arm, BP Position: Sitting, BP Cuff Size: Regular Adult) Pulse 78 Temp 36.8 C (98.2 F) (Oral) Resp 18 Ht 162.6 cm (5' 4 ) Wt 78.9 kg (174 lb) SpO2 99% BMI 29.87 kg/m Physical Exam Vitals and nursing note reviewed. Constitutional: General: She is not in acute distress. Appearance: Normal appearance. She is not ill-appearing. HENT: Head: Normocephalic and atraumatic. Eyes: General: No visual field deficit. Right eye: No discharge. Left eye: No discharge. Conjunctiva/sclera: Left eye: Hemorrhage present. Cardiovascular: Rate and Rhythm: Normal rate and regular rhythm. Pulses: Normal pulses. Heart sounds: Normal heart sounds. Pulmonary: Effort: Pulmonary effort is normal. Breath sounds: Normal breath sounds. Skin: General: Skin is warm and dry. Neurological: Mental Status: She is alert and oriented to person, place, and time. Psychiatric: Mood and Affect: Mood normal. Behavior: Behavior normal. Thought Content: Thought content normal. Judgment: Judgment normal. ASSESSMENT/PLAN: 1. Facial laceration, subsequent encounter - ICD9: V58.89, 873.40, ICD10: S01.81XD (primary diagnosis) - Acute, s/p fall. 2 sutures removed without difficulty - exam unremarkable, bruises resolving - vision intact, normal neuro exam 2. Fall, subsequent encounter - ICD9: V58.89, E888.9, ICD10: W19.XXXD -acute, - reviewed falls precautions. Pt has not had any more episodes. 3. Pneumonia of both lungs due to infectious organism, unspecified part of lung - ICD9: 483.8, ICD10: J18.9 - acute, lungs today clear. Continues with non productive cough. Will give tessalon perles to help with this. - call if persists or worsens 4. Cough - ICD9: 786.2, ICD10: R05.9 - acute, post pneumonia. Lungs CTA. Will trial tessalon perles - BENZONATATE 100 MG CAPSULE 5. Candidiasis of breast - ICD9: 112.89, ICD10: B37.89 - probable yeast. Will order nystatin cream. Instructed to call if persists or worsens - NYSTATIN 100,000 UNIT/GRAM TOPICAL CREAM Cristina Olea APRN.GREGORY I spent a total of 45 minutes on the date of the service which included preparing to see the patient, [id number] patient care, completing clinical documentation, obtaining and/or reviewing separately obtained history, performing a medically appropriate examination, counseling and educating the patient/family/caregiver and ordering medications, tests, or procedures. documented in this encounter [facility] 09-26-2021 Miscellaneous Notes Noted. Occupational therapist from [facility] Denice called to inform us that patient had both OT and PT evaluations today. Patient is doing well and doesn't want OT or PT but will be having active nursing. Her BP was 188/97 HR 68 but patient stated that she was used to it and had no symptoms and second reading was 184/94 HR 75. Adri Lopez MA documented in this encounter [facility] 09-23-2021 Miscellaneous Notes Called pt to f/u and see how she was doing with the diarrhea. Pt stated she is feeling better suggested she take a probiotic she is going to get one she has been eating a lot of yogurt Emelia Michaels MA ----- Message from Noris Seay sent at 09/19/2021 2:25 PM EDT ----- Regarding: FW: Medicine/Tita/Appointment Concern ----- Message ----- From: Tanesha Wiley Sent: 09/19/2021 2:23 PM EDT To: [facility] Triage Pool Subject: Medicine/Tita/Appointment Concern Subject Line Format: Medicine / [Provider Name] / [Issue] Patient has been identified by name and Date of (Y/N): Y Patient: Natali Kulkarni Date of : 1945 Provider for this encounter: Cristina Olea APRN.[employer]ER TAILER Reason for the call/escalation: Patient calling to schedule a hospital follow up but does not want the appointment for another 2 weeks. Has complaint of diarrhea due to antibiotics, but won't stop the antibiotic until she is seen. Advised pt that hospital follow ups are to be scheduled within 7 days. Patient insisted on 2 weeks and told me to hurry up I want to lay down . Appointment is not scheduled until 10/08 at 11:20 with Tita. Offered to schedule with another provider, she declined. Continued to complain about how she needs to get off antibiotic. Was Patient Referred to [facility]/Seek Emergency Treatment (Y/N): NA Did Patient Agree (Y/N): NA Was An Attempt Made To Transfer The Patient To The Office (Y/N): NA Were You Able To Reach Someone At The Office (Y/N): NA If Yes - Patient Was Transferred To (Caregivers Name): NA If No - Which [facility] Leadership Radon Inspector Did You Speak With Regarding This Patient: NA Was an appointment scheduled (Y/N): Y 10/08 11:20 with Tita Reason patient was requesting visit (RFV/signs and symptoms/diagnosis) : Hospital follow up Person calling if other than patient: patient Return call to if other than patient: patient Best contact number: [phone] Thank you, Tanesha Wiley September 19, 2021 2:21 PM documented in this encounter [facility] 09-19-2021 Miscellaneous Notes Called patient and transferred her to scheduling. Kianna Mirza MA I'm not sure why she is taking it. It looks like she was in the hospital recently. Is she able to come in for follow up visit? Patient states that the antibiotic she was prescribed cefdinir is causing her to have diarrhea and making her feel weird. She really wants a new antibiotic sent today to [facility]. Adri Lopez MA documented in this encounter [facility] 09-18-2021 History of Presen t illness Narrative TRANSITIONAL CARE MANAGEMENT (TCM) COMMUNITY MONITORING PROGRAM - [facility] Provider Action/FYI: Pt did not qualify for inpatient rehab per insurance, home health will be out to eval pt today. Denied scheduling follow up appt during telephone call, pt extremely tired and would like to rest prior to arrangements. I will follow up with patient Thursday to ensure TCM appointment is arranged. Medications changes during hospitalization- see note below. SUMMARY: Pt discharged from [facility] on 09/20/2021. Admitted for: acute on chronic back pain, hypoxia. DX PNA Risk score: unknown Spoke with patient via telephone to discuss the following: General: Natali states she not feeling good yet. She feels weak and fatigued. PNA/back pain: Natali states she still becomes sob at times, she is more tired than anything. Back pain has not changed much since hospitalization. Medications: Taking antibiotic as prescribed without difficulty. Also taking prednisone taper. During hospital review- noted citalopram discontinued and duloxetine initiated, unable to review with patient as she cut the telephone conversation short. Denies need for refills. Discharge instructions: Reviewed, notified Natali of when she should return to the ED or call for sooner visit to be evaluated in the office. Social: Natali is able to met her needs independently. She did state that home health is coming out today to evaluate her. Appointments: Natali did not want me to schedule her a follow up appointment while on the phone, she is aware she needs to follow up within 14 days but would like to call back when she feels better, stressed the importance of the follow up and also to notify the office of any further decline or change in condition. Natali states understanding. Office contact information given to Natali for her to call and schedule appointment. Contact made with patient: Yes Hi my name is Tanya Antoineneyhuy and I am calling from the [facility] on behalf of your PCP, Cristina Olea APRN.[employer] I understand you were recently in the hospital so I am calling to check in with you to ensure you are feeling well now that you re home. Do you mind if I ask you a few questions related to your hospital stay and well-being Yes Contact with patient post discharge, spoke to patient. Patient identified by name and . Do you feel your health is BETTER, WORSE, or the SAME since leaving the hospital? Same ACTION TAKEN: Patient indicated symptoms are better or same, no action required. Continue outreach. MEDICATIONS: Many patients have questions or concerns about their medications once they are home. Do you have any questions about taking your medications or which medication you should be on? No Do you need any medication refills at this time, including any of the medications you might take only when needed? No ACTION TAKEN: No action required For RNs or Pharmacy completing outreach ONLY, was a medication review completed? N/A SOCIAL: We would like to make sure you have what you need so that your basics needs are met - including your personal safety, food, housing and medications. Would you like to speak with a social work logistics team leader to help give you support for any of these needs? No It can be normal to feel anxious or down during a time like this. Would you like to talk to a mental health professional about how you have been feeling? No ACTION TAKEN: No action taken DISCHARGE INTRUCTIONS: Your discharge instructions / After Visit Summary (AVS) are important in guiding you through the recovery process. Do you have any questions related to your discharge instructions? No Do you have all the necessary equipment and supplies at home? Yes ACTION TAKEN: No action required Thank you for talking with me today. I would like to help you schedule a hospital follow-up virtual or telephone visit with your PCP. This is a great way for you to connect with your provider to ensure you have safely transitioned home. If you are agreeable, I will send your request to a marshmallow machine worker who will contact and assist you with that appointment. This will give you an opportunity to ask any questions or address any concerns you may have with your PCP. Inform the patient that if they have any questions or concerns prior to that appointment, to call their PCP's office right away. ACTION TAKEN: No action required, patient declines appointment. Your doctor would like us to remind you of the recommendations regarding the coronavirus (Covid19) outbreak: Avoid public places as much as possible. Avoid close contact (within 6 feet) with others you don't live with, especially if they are sick. Stay home if you are sick. Wash your hands regularly for at least 20 seconds with soap and water. Wear a cloth mask in public places to help reduce community spread. Do not go to your Doctor's office unless instructed to do so. For any non-emergency symptoms, call your Doctor's office to get instructions on how to manage (we might recommend a telephone or virtual visit). For emergency symptoms, proceed to Emergency Department as usual but inform them of cough and fever symptoms ADRIEN if present (or call on the way if possible). Tanya Raymundo LPN documented in this encounter [facility] 09-17-2021 Miscellaneous Notes Key nunez [facility] called they will be seeing pt for Home health care for PT and OT. Emelia Michaels MA documented in this encounter [facility] 09-11-2021 History of Presen t illness Narrative Images from the original note were not included. This note was created using [email or web address]. Subjective Natali Kulkarni is a 76 year old female here today for acute visit for complaints of SOB x 1 day. PMH CAD, fibromyalgia, IBS, HTN, depression, chronic pain, neuropathy, DM. Reports SOB started yesterday afternoon. She reports she started with left shoulder pain that radiated into left chest and into her back. Reports unable to take deep breath due to pain. States movement worsens pain. Reports when she takes a breath it is a sharp pain in lungs left side next to breast and into back. Pain is continuous. Reports pain 8/10 currently, worst 10/10. Reports she has not been able to eat due to pain. She reports she can not take deep breath. She does not feel this is heart related because she knows how that feels. Denies fever, chills, SALAZAR, dizziness, CP, cough, wheezing, abd pain, dysuria, frequency. I reviewed her past medical, surgical, social, and family histories today and updated chart. Allergies, chronic medications, and supplements were also reviewed and her list is now up to date. ALLERGIES Allergen Reactions Lisinopril Anaphylaxis cough Justo Inhibitors Unknown Amlodipine Unknown fatigue Atenolol Unknown bradycardia Atorvastatin Unknown myalgias Codeine GI Upset Ezetimibe Unknown myalgia Ibuprofen GI Upset Midrin [Isometh-Dic* Intolerance Shakey, anxious Pitavastatin Unknown myalgia Pravastatin Unknown myalgia Ranolazine Unknown Dry mouth Rosuvastatin Calcium Unknown myalgia Simvastatin Unknown myalgia Spironolactone Unknown Sulfa (Sulfonamide * Swelling Topamax [Topiramate] Other: See Comments dizziness Current Outpatient Medications Medication Sig Dispense Refill citalopram (CELEXA) 20 mg tablet TAKE 1 TABLET DAILY 90 tablet 3 metoprolol succinate ER (TOPROL XL) 50 mg 24 hr tablet albuterol HFA (PROAIR HFA) 90 mcg/actuation inhaler Inhale 2 Puffs as instructed every 4 hours as needed. 18 g 3 predniSONE (DELTASONE) 20 mg tablet Take 2 tablets by mouth once daily. (Patient not taking: Reported on 07/15/2021 ) 10 tablet 0 ranolazine ER (RANEXA) 500 mg 12 hr tablet Take 500 mg by mouth twice daily. zoster vaccine, recombinant, adjuvanted, (SHINGRIX) 50 mcg/0.5 mL injection Inject 0.5 mL intramuscularly now and repeat 2nd dose in 2-6 months 1 Each 0 hydrOXYzine HCl (ATARAX) 25 mg tablet Take 1 tablet by mouth daily at bedtime. As needed for itching 90 tablet 1 amLODIPine (NORVASC) 10 mg tablet Take 0.5 tablets by mouth once daily. furosemide (LASIX) 20 mg tablet Take 1 tablet by mouth as needed. ezetimibe (ZETIA) 10 mg tablet Take 10 mg by mouth once daily. pantoprazole sodium (PROTONIX ORAL) Take 20 mg by mouth once daily. ticagrelor (BRILINTA) 90 mg tablet Take 90 mg by mouth twice daily. fexofenadine (NAZIA) 60 mg tablet TAKE 1 TABLET BY MOUTH EVERY DAY 90 tablet 1 gabapentin (NEURONTIN) 100 mg capsule Take 300 mg by mouth three times daily. Per pain management Doctor estradiol (ESTRACE) 0.01 % (0.1 mg/gram) vaginal cream Use 1 g vaginally twice a week. 8 g 11 methocarbamol (ROBAXIN) 500 mg tablet Take 500 mg by mouth twice daily. oxyCODONE-acetaminophen (PERCOCET) 7.5-325 mg tablet nitroglycerin sublingual (NITROQUICK) 0.4 mg SL tablet Dissolve 0.4 mg under the tongue every 5 minutes as needed. losartan (COZAAR) 100 mg tablet Take 100 mg by mouth once daily. Aspirin 81 mg ORAL Tab Take one(1) tablet daily. 0 No current facility-administered medications for this visit. ACTIVE PROBLEM LIST Essential Hypertension Other and Unspecified Disc Disorder of Lumbar Region Major depressive disorder Irritable Bowel Syndrome Headache(784.0) Cervicalgia AORTOCORONARY BYPASS STATUS Pain in Joint, Lower Leg Esophageal Reflux Unspecified Symptom Associated With Female Genital Organs Other Specified Disorder of Bladder Postmenopausal Atrophic Vaginitis Cystocele, Midline Arthritis Fibromyalgia Prolapse of Vaginal Vault After Hysterectomy Midline Cystocele Mixed Incontinence Myalgia of Pelvic Floor Muscle Hypertonicity Atrophic Vaginitis Lichen Sclerosus Et Atrophicus Feeling of Incomplete Bladder Emptying Episode of Recurrent Major Depressive Disorder (Hcc) PAST MEDICAL HISTORY Diagnosis Date Arthritis Benign neoplasm of cerebral meninges (HCC) 2005 Craniotomy CAD (coronary artery disease) 08/22/2006 NSTEMI. Calculus of gallbladder without mention of cholecystitis or obstruction 12/01/2005 Contact dermatitis and other eczema, due to unspecified cause 04/25/2005 Vulvar dermatitis Depressive disorder, not elsewhere classified 04/25/2005 Diaphragmatic hernia without mention of obstruction or gangrene Diverticulosis of colon (without mention of hemorrhage) and diverticulitis in 09/25 Esophageal reflux Esophagitis, unspecified Fibromyalgia GERD (gastroesophageal reflux disease) Heart attack (HCC) Muscle disease Other and unspecified disc disorder of lumbar region 04/25/2005 Dr. 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 EGD TRANSORAL BIOPSY SINGLE/MULTIPLE 04/17/09 ESOPHAGOGASTRODUODENOSCOPY TRANSORAL DIAGNOSTIC 12/10/2005 EGD ESOPHAGOGASTRODUODENOSCOPY TRANSORAL DIAGNOSTIC 01/08/2012 EGD ESOPHAGOGASTRODUODENOSCOPY TRANSORAL DIAGNOSTIC 12/14/14 EGD ESOPHAGOGASTRODUODENOSCOPY TRANSORAL DIAGNOSTIC 02/20/16 EGD mac escobar [facility] out pt GASTROESOPHAG REFLX TEST W/TELEMTRY PH ELTRD 04/17/2009 HEART SURGERY HX CABG x 3 LAPAROSCOPY SURG CHOLECYSTECTOMY 01/2006 Cholecystectomy, lap LEFT HEART CATH,PERCUTANEOUS 08/2006 Post CABG, repeat cath. LIG/TRNSXJ FLP TUBE ABDL/VAG APPR UNI/BI MRI 08/01/2009 on head previous brain tumor 2006 PAST SURGICAL HISTORY OF rt side of head SKIN CANCER PAST SURGICAL HISTORY OF spine surgery- 2 lower back and one neck PAST SURGICAL HISTORY OF 06/12/2006 Left craniotomy, Meningioma, [place] [facility] VAGINAL HYSTERECTOMY UTERUS 250 GM/< 1982 approx Social History Tobacco Use Smoking status: Former Smoker Packs/day: 0.50 Years: 40.00 Pack years: 20.00 Types: Cigarettes Quit date: 08/20/2006 Years since quittin.0 Smokeless tobacco: Never Used Tobacco comment: Quit 10 years ago 08/22/06 Vaping Use Vaping Use: Never used Substance Use Topics Alcohol use: No Drug use: No Family History Problem Relation Age of Onset Cancer Mother LUNG , BONE Prostate Cancer Brother Heart Sister M.I. Hypertension Sister Heart Father CVA Review of Systems Constitutional: Negative for chills, fatigue and fever. Respiratory: Positive for shortness of breath. Negative for cough, chest tightness and wheezing. Cardiovascular: Positive for chest pain. Negative for palpitations and leg swelling. See HPI Gastrointestinal: Negative for abdominal pain, constipation, diarrhea, nausea and vomiting. Genitourinary: Negative for difficulty urinating, flank pain, frequency and hematuria. Musculoskeletal: Positive for arthralgias and myalgias. Chronic pain Neurological: Negative for dizziness, numbness and headaches. No change Objective BP 138/80 (BP Site: Right Arm, BP Position: Sitting, BP Cuff Size: Regular Adult) Pulse 65 Temp 36.8 C (98.2 F) (Oral) Resp 24 Ht 162.6 cm (5' 4 ) Wt 81.3 kg (179 lb 3.2 oz) SpO2 99% BMI 30.76 kg/m 09/11/21 1547 09/11/21 1603 BP: 138/80 138/82 BP Site: Right Arm BP Position: Sitting BP Cuff Size: Regular Adult Pulse: 65 Resp: 24 Temp: 36.8 C (98.2 F) TempSrc: Oral SpO2: 99% Weight: 81.3 kg (179 lb 3.2 oz) Height: 162.6 cm (5' 4 ) Physical Exam Vitals and nursing note reviewed. Constitutional: General: She is not in acute distress. Appearance: Normal appearance. She is obese. She is not ill-appearing. HENT: Head: Normocephalic and atraumatic. Cardiovascular: Rate and Rhythm: Normal rate and regular rhythm. Pulses: Normal pulses. Heart sounds: Normal heart sounds. No murmur heard. Pulmonary: Effort: Pulmonary effort is normal. No respiratory distress. Breath sounds: Normal breath sounds. No stridor. No wheezing, rhonchi or rales. Chest: Chest wall: Tenderness present. Abdominal: General: Abdomen is protuberant. Bowel sounds are normal. Palpations: Abdomen is soft. Tenderness: There is no abdominal tenderness. There is left CVA tenderness. There is no right CVA tenderness, guarding or rebound. Musculoskeletal: Arms: Skin: General: Skin is warm and dry. Neurological: Mental Status: She is alert and oriented to person, place, and time. Psychiatric: Mood and Affect: Mood normal. Behavior: Behavior normal. Thought Content: Thought content normal. Judgment: Judgment normal. ASSESSMENT/PLAN: 1. Chest pain on breathing - ICD9: 786.52, ICD10: R07.1 (primary diagnosis) - ECG in office no acute findings. NSR. VSS. No tachycardia or tachypnea. Lab is closed and unable to obtain labs today. Pt sent to Er for further evaluation and need for labs and imaging. - pt unable to take breaths without wincing in pain throughout visit. Considerable tenderness thoracic back, left flank and shoulder. Maybe be muscular skeletal in nature but needs further evaluation. Also noted left CVA tenderness 2. Flank pain - ICD9: 789.09, ICD10: R10.9 Etiology unclear Differential Diagnosis includes Kidney stones/colic Cristina Olea APRN.[employer] documented in this encounter [facility] documented as of this encounter (statuses as of 09/11/2021) [facility]2017 History of Past illness Narrative* Problem Noted Date Resolved Date Urinary retention 07/18/2016 12/01/2017 Frequency of urination 07/18/2016 8 Ventral hernia 02/18/2010 12/01/2017 Symptomatic menopausal or female climacteric sta mahsa 11/15/2009 12/01/2017 Urgency of urination 11/06/2008 12/01/2017 Benign neoplasm of cerebral meninges 05/01/2006 08/20/2006 Calculus of gallbladder with out mention of cholecystitis or obstruction 12/01/2005 08/20/2006 Overview: 2000 Other and unspecified hyperlipidemia 04/25/2005 12/01/2017 Persistent disorder of initiating or maintaining sleep 04/25/2005 12/01/2017 documented as of this encounter (statuses as of 09/17/2021) [facility] History of Past illness Narrative* Problem Noted Date Resolved Date Urinary retention 07/18/2016 12/01/2017 Frequency of urination 07/18/2016 8 Ventral hernia 02/18/2010 12/01/2017 Symptomatic menopausal or female climacteric sta mahsa 11/15/2009 12/01/2017 Urgency of urination 11/06/2008 12/01/2017 Benign neoplasm of cerebral meninges 05/01/2006 08/20/2006 Calculus of gallbladder with out mention of cholecystitis or obstruction 12/01/2005 08/20/2006 Overview: 2000 Other and unspecified hyperlipidemia 04/25/2005 12/01/2017 Persistent disorder of initiating or maintaining sleep 04/25/2005 12/01/2017 documented as of this encounter (statuses as of 09/18/2021) [facility] History of Past illness Narrative* Problem Noted Date Resolved Date Urinary retention 07/18/2016 12/01/2017 Frequency of urination 07/18/2016 8 Ventral hernia 02/18/2010 12/01/2017 Symptomatic menopausal or female climacteric sta mahsa 11/15/2009 12/01/2017 Urgency of urination 11/06/2008 12/01/2017 Benign neoplasm of cerebral meninges 05/01/2006 08/20/2006 Calculus of gallbladder with out mention of cholecystitis or obstruction 12/01/2005 08/20/2006 Overview: 2000 Other and unspecified hyperlipidemia 04/25/2005 12/01/2017 Persistent disorder of initiating or maintaining sleep 04/25/2005 12/01/2017 documented as of this encounter (statuses as of 09/19/2021) [facility] History of Past illness Narrative* Problem Noted Date Resolved Date Urinary retention 07/18/2016 12/01/2017 Frequency of urination 07/18/2016 8 Ventral hernia 02/18/2010 12/01/2017 Symptomatic menopausal or female climacteric sta mahsa 11/15/2009 12/01/2017 Urgency of urination 11/06/2008 12/01/2017 Benign neoplasm of cerebral meninges 05/01/2006 08/20/2006 Calculus of gallbladder with out mention of cholecystitis or obstruction 12/01/2005 08/20/2006 Overview: 2000 Other and unspecified hyperlipidemia 04/25/2005 12/01/2017 Persistent disorder of initiating or maintaining sleep 04/25/2005 12/01/2017 documented as of this encounter (statuses as of 09/23/2021) [facility] History of Past illness Narrative* Problem Noted Date Resolved Date Urinary retention 07/18/2016 12/01/2017 Frequency of urination 07/18/2016 8 Ventral hernia 02/18/2010 12/01/2017 Symptomatic menopausal or female climacteric sta mahsa 11/15/2009 12/01/2017 Urgency of urination 11/06/2008 12/01/2017 Benign neoplasm of cerebral meninges 05/01/2006 08/20/2006 Calculus of gallbladder with out mention of cholecystitis or obstruction 12/01/2005 08/20/2006 Overview: 2000 Other and unspecified hyperlipidemia 04/25/2005 12/01/2017 Persistent disorder of initiating or maintaining sleep 04/25/2005 12/01/2017 documented as of this encounter (statuses as of 10/04/2021) [facility] History of Past illness Narrative* Problem Noted Date Resolved Date Urinary retention 07/18/2016 12/01/2017 Frequency of urination 07/18/2016 8 Ventral hernia 02/18/2010 12/01/2017 Symptomatic menopausal or female climacteric sta mahsa 11/15/2009 12/01/2017 Urgency of urination 11/06/2008 12/01/2017 Benign neoplasm of cerebral meninges 05/01/2006 08/20/2006 Calculus of gallbladder with out mention of cholecystitis or obstruction 12/01/2005 08/20/2006 Overview: 2000 Other and unspecified hyperlipidemia 04/25/2005 12/01/2017 Persistent disorder of initiating or maintaining sleep 04/25/2005 12/01/2017 documented as of this encounter (statuses as of 10/08/2021) [facility] History of Past illness Narrative* Problem Noted Date Resolved Date Urinary retention 07/18/2016 12/01/2017 Frequency of urination 07/18/2016 8 Ventral hernia 02/18/2010 12/01/2017 Symptomatic menopausal or female climacteric sta mahsa 11/15/2009 12/01/2017 Urgency of urination 11/06/2008 12/01/2017 Benign neoplasm of cerebral meninges 05/01/2006 08/20/2006 Calculus of gallbladder with out mention of cholecystitis or obstruction 12/01/2005 08/20/2006 Overview: 2000 Other and unspecified hyperlipidemia 04/25/2005 12/01/2017 Persistent disorder of initiating or maintaining sleep 04/25/2005 12/01/2017 documented as of this encounter (statuses as of 10/10/2021) [facility] History of Past illness Narrative* Problem Noted Date Resolved Date Urinary retention 07/18/2016 12/01/2017 Frequency of urination 07/18/2016 8 Ventral hernia 02/18/2010 12/01/2017 Symptomatic menopausal or female climacteric sta mahsa 11/15/2009 12/01/2017 Urgency of urination 11/06/2008 12/01/2017 Benign neoplasm of cerebral meninges 05/01/2006 08/20/2006 Calculus of gallbladder with out mention of cholecystitis or obstruction 12/01/2005 08/20/2006 Overview: 2000 Other and unspecified hyperlipidemia 04/25/2005 12/01/2017 Persistent disorder of initiating or maintaining sleep 04/25/2005 12/01/2017 documented as of this encounter (statuses as of 10/28/2021) [facility] History of Past illness Narrative* Problem Noted Date Resolved Date Urinary retention 07/18/2016 12/01/2017 Frequency of urination 07/18/2016 8 Ventral hernia 02/18/2010 12/01/2017 Symptomatic menopausal or female climacteric sta mahsa 11/15/2009 12/01/2017 Urgency of urination 11/06/2008 12/01/2017 Benign neoplasm of cerebral meninges 05/01/2006 08/20/2006 Calculus of gallbladder with out mention of cholecystitis or obstruction 12/01/2005 08/20/2006 Overview: 2000 Other and unspecified hyperlipidemia 04/25/2005 12/01/2017 Persistent disorder of initiating or maintaining sleep 04/25/2005 12/01/2017 documented as of this encounter (statuses as of 11/28/2021) [facility] History of Past illness Narrative* Problem Noted Date Resolved Date Urinary retention 07/18/2016 12/01/2017 Frequency of urination 07/18/2016 8 Ventral hernia 02/18/2010 12/01/2017 Symptomatic menopausal or female climacteric sta mahsa 11/15/2009 12/01/2017 Urgency of urination 11/06/2008 12/01/2017 Benign neoplasm of cerebral meninges 05/01/2006 08/20/2006 Calculus of gallbladder with out mention of cholecystitis or obstruction 12/01/2005 08/20/2006 Overview: 2000 Other and unspecified hyperlipidemia 04/25/2005 12/01/2017 Persistent disorder of initiating or maintaining sleep 04/25/2005 12/01/2017 documented as of this encounter (statuses as of 01/14/2022) [facility] History of Past illness Narrative* Problem Noted Date Resolved Date Urinary retention 07/18/2016 12/01/2017 Frequency of urination 07/18/2016 8 Ventral hernia 02/18/2010 12/01/2017 Symptomatic menopausal or female climacteric sta mahsa 11/15/2009 12/01/2017 Urgency of urination 11/06/2008 12/01/2017 Benign neoplasm of cerebral meninges 05/01/2006 08/20/2006 Calculus of gallbladder with out mention of cholecystitis or obstruction 12/01/2005 08/20/2006 Overview: 2000 Other and unspecified hyperlipidemia 04/25/2005 12/01/2017 Persistent disorder of initiating or maintaining sleep 04/25/2005 12/01/2017 documented as of this encounter (statuses as of 01/15/2022) [facility] History of Past illness Narrative* Problem Noted Date Resolved Date Urinary retention 07/18/2016 12/01/2017 Frequency of urination 07/18/2016 8 Ventral hernia 02/18/2010 12/01/2017 Symptomatic menopausal or female climacteric sta mahsa 11/15/2009 12/01/2017 Urgency of urination 11/06/2008 12/01/2017 Benign neoplasm of cerebral meninges 05/01/2006 08/20/2006 Calculus of gallbladder with out mention of cholecystitis or obstruction 12/01/2005 08/20/2006 Overview: 2000 Other and unspecified hyperlipidemia 04/25/2005 12/01/2017 Persistent disorder of initiating or maintaining sleep 04/25/2005 12/01/2017 documented as of this encounter (statuses as of 01/16/2022) [facility] History of Past illness Narrative* Problem Noted Date Resolved Date Urinary retention 07/18/2016 12/01/2017 Frequency of urination 07/18/2016 8 Ventral hernia 02/18/2010 12/01/2017 Symptomatic menopausal or female climacteric sta mahsa 11/15/2009 12/01/2017 Urgency of urination 11/06/2008 12/01/2017 Benign neoplasm of cerebral meninges 05/01/2006 08/20/2006 Calculus of gallbladder with out mention of cholecystitis or obstruction 12/01/2005 08/20/2006 Overview: 2000 Other and unspecified hyperlipidemia 04/25/2005 12/01/2017 Persistent disorder of initiating or maintaining sleep 04/25/2005 12/01/2017 documented as of this encounter (statuses as of 2022) [facility] History of Past illness Narrative* Problem Noted Date Resolved Date Urinary retention 07/18/2016 12/01/2017 Frequency of urination 07/18/2016 8 Ventral hernia 02/18/2010 12/01/2017 Symptomatic menopausal or female climacteric sta mahsa 11/15/2009 12/01/2017 Urgency of urination 11/06/2008 12/01/2017 Benign neoplasm of cerebral meninges 05/01/2006 08/20/2006 Calculus of gallbladder with out mention of cholecystitis or obstruction 12/01/2005 08/20/2006 Overview: 2000 Other and unspecified hyperlipidemia 04/25/2005 12/01/2017 Persistent disorder of initiating or maintaining sleep 04/25/2005 12/01/2017 documented as of this encounter (statuses as of 01/30/2022) [facility] History of Past illness Narrative* Problem Noted Date Resolved Date Urinary retention 07/18/2016 12/01/2017 Frequency of urination 07/18/2016 8 Ventral hernia 02/18/2010 12/01/2017 Symptomatic menopausal or female climacteric sta mahsa 11/15/2009 12/01/2017 Urgency of urination 11/06/2008 12/01/2017 Benign neoplasm of cerebral meninges 05/01/2006 08/20/2006 Calculus of gallbladder with out mention of cholecystitis or obstruction 12/01/2005 08/20/2006 Overview: 2000 Other and unspecified hyperlipidemia 04/25/2005 12/01/2017 Persistent disorder of initiating or maintaining sleep 04/25/2005 12/01/2017 documented as of this encounter (statuses as of 02/05/2022) [facility] History of Past illness Narrative* Problem Noted Date Resolved Date Urinary retention 07/18/2016 12/01/2017 Frequency of urination 07/18/2016 8 Ventral hernia 02/18/2010 12/01/2017 Symptomatic menopausal or female climacteric sta mahsa 11/15/2009 12/01/2017 Urgency of urination 11/06/2008 12/01/2017 Benign neoplasm of cerebral meninges 05/01/2006 08/20/2006 Calculus of gallbladder with out mention of cholecystitis or obstruction 12/01/2005 08/20/2006 Overview: 2000 Other and unspecified hyperlipidemia 04/25/2005 12/01/2017 Persistent disorder of initiating or maintaining sleep 04/25/2005 12/01/2017 documented as of this encounter (statuses as of 05/23/2022) [facility] History of Past illness Narrative* Problem Noted Date Resolved Date Urinary retention 07/18/2016 12/01/2017 Frequency of urination 07/18/2016 8 Ventral hernia 02/18/2010 12/01/2017 Symptomatic menopausal or female climacteric sta mahsa 11/15/2009 12/01/2017 Urgency of urination 11/06/2008 12/01/2017 Benign neoplasm of cerebral meninges 05/01/2006 08/20/2006 Calculus of gallbladder with out mention of cholecystitis or obstruction 12/01/2005 08/20/2006 Overview: 2000 Other and unspecified hyperlipidemia 04/25/2005 12/01/2017 Persistent disorder of initiating or maintaining sleep 04/25/2005 12/01/2017 documented as of this encounter (statuses as of 07/17/2022) [facility] History of Past illness Narrative* Problem Noted Date Resolved Date Urinary retention 07/18/2016 12/01/2017 Frequency of urination 07/18/2016 8 Ventral hernia 02/18/2010 12/01/2017 Symptomatic menopausal or female climacteric sta mahsa 11/15/2009 12/01/2017 Urgency of urination 11/06/2008 12/01/2017 Benign neoplasm of cerebral meninges 05/01/2006 08/20/2006 Calculus of gallbladder with out mention of cholecystitis or obstruction 12/01/2005 08/20/2006 Overview: 2000 Other and unspecified hyperlipidemia 04/25/2005 12/01/2017 Persistent disorder of initiating or maintaining sleep 04/25/2005 12/01/2017 documented as of this encounter (statuses as of 08/11/2022) [facility] History of Past illness Narrative* Problem Noted Date Diagnosed Date Resolved Date Urinary retention 07/18/2016 12/01/2017 Frequency of urination 07/18/201612/01 Ventral hernia 02/18/2010 12/01/2017 Symptomatic menopausal or fe male climacteric states 11/15/2009 12/01/2017 Urgency of urination 11/06/2008 018 Benign neoplasm of cerebral meninges 05/01/2006 08/20/2006 Calculus of gallbladder with out mention of cholecystitis or obstruction 12/01/2005 08/20/2006 Overview: 2000 Other and unspecified hyperlipidemia 04/25/2005 12/01/2017 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 04/25/2005 12/01/2017 documented as of this encounter (statuses as of 12/16/2022) [facility] History of Past illness Narrative* Problem Noted Date Diagnosed Date Resolved Date Urinary retention 07/18/2016 12/01/2017 Frequency of urination 07/18/201612/01 Ventral hernia 02/18/2010 12/01/2017 Symptomatic menopausal or fe male climacteric states 11/15/2009 12/01/2017 Urgency of urination 11/06/2008 018 Benign neoplasm of cerebral meninges 05/01/2006 08/20/2006 Calculus of gallbladder with out mention of cholecystitis or obstruction 12/01/2005 08/20/2006 Overview: 2000 Other and unspecified hyperlipidemia 04/25/2005 12/01/2017 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 04/25/2005 12/01/2017 documented as of this encounter (statuses as of 12/17/2022) [facility] History of Past illness Narrative* Problem Noted Date Diagnosed Date Resolved Date Urinary retention 07/18/2016 12/01/2017 Frequency of urination 07/18/201612/01 Ventral hernia 02/18/2010 12/01/2017 Symptomatic menopausal or fe male climacteric states 11/15/2009 12/01/2017 Urgency of urination 11/06/2008 018 Benign neoplasm of cerebral meninges 05/01/2006 08/20/2006 Calculus of gallbladder with out mention of cholecystitis or obstruction 12/01/2005 08/20/2006 Overview: 2001 Other and unspecified hyperlipidemia 04/25/2005 12/01/2017 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 04/25/2005 12/01/2017 documented as of this encounter (statuses as of 03/11/2023) [facility] note* Diagnosis Chest pain on breathing- Primary Painful respiration Flank pain Abdominal pain, unspecified site [facility] Diagnosis Facial laceration, subsequent encounter- Primary Fall, subsequent encounter Pneumonia of both lungs due to infectious organism, unspecified part of lung Cough Candidiasis of breast Other candidiasis of other specified sites documented in this encounter [facility] note* Diagnosis Episode of recurrent major depressive disorder, unspecified depression episode severity (HCC) documented in this encounter [facility] note* Diagnosis Wellness examination- Primary Essential hypertension Unspecified essential hypertension Episode of recurrent major depressive disorder, unspecified depression episode severity (HCC) Fibromyalgia Mylagia and myositis, unspecified Encounter for screening mammogram for malignant neoplasm of breast Other screening mammogram Post-menopausal Asymptomatic postmenopausal status (age-related) (natural) Osteopenia of multiple sites Coronary artery disease of [place] artery of [place] heart with stable angina pectoris (HCC) Vitamin D deficiency Unspecified vitamin D deficiency Screening for thyroid disorder documented in this encounter [facility] note* Diagnosis Seizure (HCC)- Primary Other convulsions Syncope, unspecified syncope type Dysuria Vaginal itching Pruritus of genital organs documented in this encounter [facility] note* Diagnosis Focal epilepsy (HCC)- Primary Localization-related (focal) (partial) epilepsy and epileptic syndromes with simple partial seizures, without mention of intractable epilepsy documented in this encounter [facility] note* Diagnosis Essential hypertension Unspecified essential hypertension Medication management Encounter for long-term (current) use of other medications documented in this encounter [facility] note* Diagnosis Episode of recurrent major depressive disorder, unspecified depression episode severity (HCC) documented in this encounter [facility] note* Diagnosis Focal epilepsy (HCC)- Primary Localization-related (focal) (partial) epilepsy and epileptic syndromes with simple partial seizures, without mention of intractable epilepsy Neuropathy Mononeuritis of unspecified site [facility] Diagnosis Episode of recurrent major depressive disorder, unspecified depression episode severity (HCC) [facility] Diagnostic Procedure Only (Routine) - Pending Review Specialty Diagnoses / Procedures Referred By Contac t Referred To Contact [facility] Diagnoses Encounter for screening mammogram for malignant neoplasm of breast Procedures ISIDRO SCREENING SCREENING MAMMOGRAPHY BI 2-VIEW BREAST INC CAD Cristina Olea, SUPERVISOR PAINT DEPARTMENT.[employer] [address] [place] [address] [facility] [address] [place] [address] Referral ID Status Reason Start Date Expiration Date Visits Requested Visits Authorized [id number] Pending Review Auto-Generat ed Referral 11/28/2021 12/28/2022 1 1 [facility] Outpatient Procedure (Routine) - Authorized Specialty Diagnoses / Procedures Referred By Contac t Referred To Contact [facility] Diagnoses Focal epilepsy (HCC) Procedures EPIL EEG LONG EEG EXTENDED MONITORING 61-119 MINUTES ELECTROENCEPHALOGRAM REC COMA/SLEEP ONLY Simon Solares MD [address] [place] [address] [address] Referral ID Status Reason Start Date Expiration Date Visits Requested Visits Authorized [id number] Authorized Auto-Generat ed Referral 02/05/2022 02/05/2023 1 1 [facility] Summary Purpose Family History No Family History Records FoundNo Family History Records FoundNo Family History Records Found Advance Directives No Advanced Directives Records FoundDocuments on File Type Date Recorded 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 Advance Directive(s) Advance Directive(s) 09/11/2021 4:43 PM Documents on File Type Date Recorded 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 Advance Directive(s) Advance Directive(s) 09/11/2021 4:43 PM Reason for Referral Specialty Diagnoses / Procedures Referred By Contac t Referred To Contact Neurology Diagnoses Neuropathy Procedures CONSULT TO NEUROLOGY OFFICE/OUTPATIENT [facility] MDM 60-74 MINUTES Simon Solares MD [address] [place] [address] Referral ID Status Reason Start Date Expiration Date Visits Requested Visits Authorized [id number] Pending Review PCP Requested Referral 12/11/2022 12/11/2023 1 1 Additional Source Comments INFORMATION SOURCE (unrecogn ized section and content) DATE CREATED AUTHOR AUTHOR'S ORGANIZ ATION 10/01/2022 [facility] DATE CREATED AUTHOR AUTHOR'S ORGANIZ ATION 05/27/2023 [facility] Source Comments (unrecognize d section and content) In the event this informatio n is protected by the Federal Confidentiality of Alcohol and Drug Abuse Patient Records regulations: The Federal rules restrict any use of the information to criminally investigate or prosecute any alcohol or drug abuse patient.[facility] the event this information is protected by the Federal Confidentiality of Alcohol and Drug Abuse Patient Records regulations: The Federal rules restrict any use of the information to criminally investigate or prosecute any alcohol or drug abuse patient.[facility] the event this information is protected by the Federal Confidentiality of Alcohol and Drug Abuse Patient Records regulations: The Federal rules restrict any use of the information to criminally investigate or prosecute any alcohol or drug abuse patient.[facility] the event this information is protected by the Federal Confidentiality of Alcohol and Drug Abuse Patient Records regulations: The Federal rules restrict any use of the information to criminally investigate or prosecute any alcohol or drug abuse patient.[facility] the event this information is protected by the Federal Confidentiality of Alcohol and Drug Abuse Patient Records regulations: The Federal rules restrict any use of the information to criminally investigate or prosecute any alcohol or drug abuse patient.[facility] the event this information is protected by the Federal Confidentiality of Alcohol and Drug Abuse Patient Records regulations: The Federal rules restrict any use of the information to criminally investigate or prosecute any alcohol or drug abuse patient.[facility] the event this information is protected by the Federal Confidentiality of Alcohol and Drug Abuse Patient Records regulations: The Federal rules restrict any use of the information to criminally investigate or prosecute any alcohol or drug abuse patient.[facility] the event this information is protected by the Federal Confidentiality of Alcohol and Drug Abuse Patient Records regulations: The Federal rules restrict any use of the information to criminally investigate or prosecute any alcohol or drug abuse patient.[facility] the event this information is protected by the Federal Confidentiality of Alcohol and Drug Abuse Patient Records regulations: The Federal rules restrict any use of the information to criminally investigate or prosecute any alcohol or drug abuse patient.[facility] the event this information is protected by the Federal Confidentiality of Alcohol and Drug Abuse Patient Records regulations: The Federal rules restrict any use of the information to criminally investigate or prosecute any alcohol or drug abuse patient.[facility] the event this information is protected by the Federal Confidentiality of Alcohol and Drug Abuse Patient Records regulations: The Federal rules restrict any use of the information to criminally investigate or prosecute any alcohol or drug abuse patient.[facility] the event this information is protected by the Federal Confidentiality of Alcohol and Drug Abuse Patient Records regulations: The Federal rules restrict any use of the information to criminally investigate or prosecute any alcohol or drug abuse patient.[facility] the event this information is protected by the Federal Confidentiality of Alcohol and Drug Abuse Patient Records regulations: The Federal rules restrict any use of the information to criminally investigate or prosecute any alcohol or drug abuse patient.[facility] the event this information is protected by the Federal Confidentiality of Alcohol and Drug Abuse Patient Records regulations: The Federal rules restrict any use of the information to criminally investigate or prosecute any alcohol or drug abuse patient.[facility] the event this information is protected by the Federal Confidentiality of Alcohol and Drug Abuse Patient Records regulations: The Federal rules restrict any use of the information to criminally investigate or prosecute any alcohol or drug abuse patient.[facility] the event this information is protected by the Federal Confidentiality of Alcohol and Drug Abuse Patient Records regulations: The Federal rules restrict any use of the information to criminally investigate or prosecute any alcohol or drug abuse patient.[facility] the event this information is protected by the Federal Confidentiality of Alcohol and Drug Abuse Patient Records regulations: The Federal rules restrict any use of the information to criminally investigate or prosecute any alcohol or drug abuse patient.[facility] the event this information is protected by the Federal Confidentiality of Alcohol and Drug Abuse Patient Records regulations: The Federal rules restrict any use of the information to criminally investigate or prosecute any alcohol or drug abuse patient.[facility] the event this information is protected by the Federal Confidentiality of Alcohol and Drug Abuse Patient Records regulations: The Federal rules restrict any use of the information to criminally investigate or prosecute any alcohol or drug abuse patient.[facility] the event this information is protected by the Federal Confidentiality of Alcohol and Drug Abuse Patient Records regulations: The Federal rules restrict any use of the information to criminally investigate or prosecute any alcohol or drug abuse patient.[facility] the event this information is protected by the Federal Confidentiality of Alcohol and Drug Abuse Patient Records regulations: The Federal rules restrict any use of the information to criminally investigate or prosecute any alcohol or drug abuse patient.[facility] the event this information is protected by the Federal Confidentiality of Alcohol and Drug Abuse Patient Records regulations: The Federal rules restrict any use of the information to criminally investigate or prosecute any alcohol or drug abuse patient.[facility] the event this information is protected by the Federal Confidentiality of Alcohol and Drug Abuse Patient Records regulations: The Federal rules restrict any use of the information to criminally investigate or prosecute any alcohol or drug abuse patient.[facility] Care Teams (unrecognized sec tion and content) Radon Inspector Relationship Specialty Start Date End Date Cristina Olea SUPERVISOR PA[employer] DEPARTMENT.[employer] PCP - General 06/21/15 Cristina Olea, SUPERVISOR PA[employer] DEPARTMENT.[employer] TAILER [address] [facility] [place] [address] Internal Medicine 06/11/16 Radon Inspector Relationship Specialty Start Date End Date Cristina Olea SUPERVISOR PA[employer] DEPARTMENT.[employer] TAILER PCP - General 06/21/15 Cristina Olea SUPERVISOR PAINT DEPARTMENT.[employer] TAILER [address] [place] [place] [address] Internal Medicine 06/11/16 Radon Inspector Relationship Specialty Start Date End Date Cristina Olea SUPERVISOR PAINT DEPARTMENT.[employer] TAILER PCP - General 06/21/15 Cristina Olea, SUPERVISOR PAINT DEPARTMENT.[employer] TAILER [address] [facility] [place] [address] Internal Medicine 06/11/16 Radon Inspector Relationship Specialty Start Date End Date Cristina Olea SUPERVISOR PAINT DEPARTMENT.[employer] TAILER PCP - General 06/21/15 Cristina Olea, SUPERVISOR PA[employer] DEPARTMENT.[employer] TAILER [address] [place] [place] [address] Internal Medicine 06/11/16 Radon Inspector Relationship Specialty Start Date End Date Cristina Olea, SUPERVISOR PA[employer] DEPARTMENT.[employer] TAILER PCP - General 06/21/15 Cristina Olea, SUPERVISOR PA[employer] DEPARTMENT.[employer] TAILER [address] [facility] [place] [address] Internal Medicine 06/11/16 Radon Inspector Relationship Specialty Start Date End Date Cristina Olea SUPERVISOR PAINT DEPARTMENT.[employer] TAILER PCP - General 06/21/15 Cristina Olea, SUPERVISOR PAINT DEPARTMENT.[employer] TAILER [address] [place] [place] [address] Internal Medicine 06/11/16 Radon Inspector Relationship Specialty Start Date End Date Cristina Olea SUPERVISOR PAINT DEPARTMENT.[employer] TAILER PCP - General 06/21/15 Cristina Olea, SUPERVISOR PAINT DEPARTMENT.[employer] TAILER [address] [place] [place] [address] Internal Medicine 06/11/16 Radon Inspector Relationship Specialty Start Date End Date Cristina Olea SUPERVISOR PAINT DEPARTMENT.[employer] TAILER PCP - General 06/21/15 Cristina Olea, SUPERVISOR PAINT DEPARTMENT.[employer] TAILER [address] [place] [place] [address] Internal Medicine 06/11/16 Radon Inspector Relationship Specialty Start Date End Date Cristina Olea, SUPERVISOR PAINT DEPARTMENT.[employer] TAILER PCP - General 06/21/15 Cristina Olea, SUPERVISOR PAINT DEPARTMENT.[employer] TAILER [address] [place] [place] [address] Internal Medicine 06/11/16 Radon Inspector Relationship Specialty Start Date End Date Cristina Olea SUPERVISOR PAINT DEPARTMENT.[employer] D[employer] TAILER PCP - General 06/21/15 Cristina Olea, SUPERVISOR PAINT DEPARTMENT.[employer] TAILER [address] [place] [place] [address] Internal Medicine 06/11/16 Radon Inspector Relationship Specialty Start Date End Date Cristina Olea SUPERVISOR PAINT DEPARTMENT.V[employer] D[employer] TAILER PCP - General 06/21/15 Cristina Olea, SUPERVISOR PAINT DEPARTMENT.[employer] TAILER [address] [place] [place] [address] Internal Medicine 06/11/16 Radon Inspector Relationship Specialty Start Date End Date Cristina Olea SUPERVISOR PAINT DEPARTMENT.V[employer] D[employer] TAILER PCP - General 06/21/15 Cristina Olea, SUPERVISOR PAINT DEPARTMENT.[employer] TAILER [address] [place] [place] [address] Internal Medicine 06/11/16 Radon Inspector Relationship Specialty Start Date End Date Cristina Olea SUPERVISOR PAINT DEPARTMENT.[employer] D[employer] TAILER PCP - General 06/21/15 Cristina Olea, SUPERVISOR PAINT DEPARTMENT.[employer] TAILER [address] [place] [place] [address] Internal Medicine 06/11/16 Radon Inspector Relationship Specialty Start Date End Date Cristina Olea SUPERVISOR PAINT DEPARTMENT.V[employer] D[employer] TAILER PCP - General 06/21/15 Cristina Olea, SUPERVISOR PAINT DEPARTMENT.VENEER D[employer]ER TAILER [address] [facility], [place] [id number] Internal Medicine 06/11/16 Radon Inspector Relationship Specialty Start Date End Date Cristina Olea, SUPERVISOR PAINT DEPARTMENT.VENEER D[employer]ER TAILER PCP - General 06/21/15 Cristina Olea, SUPERVISOR PAINT DEPARTMENT.[employer] D[employer] TAILER [address] [place] [place] [address] Internal Medicine 06/11/16 Radon Inspector Relationship Specialty Start Date End Date Cristina Olea, SUPERVISOR PAINT DEPARTMENT.VENEER D[employer]ER TAILER PCP - General 06/21/15 Cristina Olea, SUPERVISOR PAINT DEPARTMENT.[employer] D[employer] TAILER [address] [place] [place] [address] Internal Medicine 06/11/16 Reason for Visit (unrecogniz ed section and content) Reason Onset Date Comments Transition Of Care 09/18/2021 [facility] discharge 09/17/2021 TCM encounter Reason Comments Medication Problem Reason Comments Patient Update Reason Comments Occupational therapy evaluation Reason Comments Forms Reason Comments Medication Question Reason Onset Date Comments Refill Request 01/15/2022 Reason Comments Future Appointment [place], Any Reason Comments Refill Request Reason Comments New Patient Seizures Reason Comments Medication Update Reason Onset Date Comments Refill Request 08/11/2022 Reason Comments Follow Up Seizures FOR RECORDS PERTAINING TO PATIENTS WHO ARE OR HAVE BEEN ENROLLED IN A CHEMICAL DEPENDENCY/SUBSTANCEABUSE PROGRAM, SOME INFORMATION MAY BE OMITTED. This clinical summary was aggregated from multiple sources. Caution should be exercised in using it in the provision of clinical care. This summary normalizes information from multiple sources, and as a consequence, information in this document may materially change the coding, format and clinical context of patient data. In addition, data may be omitted in some cases. CLINICAL DECISIONS SHOULD BE BASED ON THE PRIMARY CLINICAL RECORDS. [employer] [facility]. provides no warranty or guarantee of the accuracy or completeness of information in this document.
[2023-06-11] MEDS: Oxycodone/Apap 5/325 Tablet PO (12:40)
--- NOTE | 2023-06-11 13:15 | CM.ED ---
Social Work SW introduced self and role to patient and patient's spouse present in the room. Patient does not have advance directives on file. SW spoke with patient and spouse about advance directives. Pt reports they have not completed these documents before. SW provided patient with information and AD rack card with information to schedule an appointment. Pt reports she will only be here overnight. SW asked about how patient is doing at home and patient reports she has no concerns. Pt would not ambulate for nursing, it is unclear how well patient is able to walk. Pt is not interested in talking further about how she does at home due to being frustrated. Pt reports she is flusterated because she has not had food or meds and is unhappy about waiting for a bed. SW provided support and notified patient's nurse. Yazmin Sanchez BARGEMAN, CEILING INSULATION BLOWER
[2023-06-11] MEDS: 0.9% Normal Saline (1000mL) 1,000 ML 125 ML IV ×2 (14:10→22:11)
[2023-06-11 14:56] LABS: Troponin-I HS 10 pg/mL (3.0-54.0)
[2023-06-11] MEDS: oxyCODONE 5 MG Tablet 7.5 MG PO ×2 (16:15→22:05)
[2023-06-11 17:14] LABS: Troponin-I HS 11 pg/mL (3.0-54.0)
[2023-06-11] MEDS: Citalopram 20 MG Tablet PO (20:16)
[2023-06-11] MEDS: Docusate Sodium 100 MG Capsule 200 MG PO (20:16)
[2023-06-11] MEDS: Isosorbide Mononitrate 60 MG Tablet PO (20:17)
[2023-06-11] MEDS: levETIRAcetam 500 MG Tablet PO (20:18)
[2023-06-11] MEDS: Gabapentin 100 MG Capsule 200 MG PO (20:18)
[2023-06-11] MEDS: Ranolazine 500 MG Tablet 1000 MG PO (20:19)
[2023-06-11] MEDS: Acetaminophen 325 MG Tablet 650 MG PO (20:30)
[2023-06-11 20:59] LABS: Troponin-I HS 11 pg/mL (3.0-54.0)
[2023-06-12 03:15] VITALS: BP 176/73; PULSE 64; RESP 18; TEMP 36.6; O2SAT 97
[2023-06-12] MEDS: oxyCODONE 5 MG Tablet 7.5 MG PO ×2 (04:20→10:31)
[2023-06-12 05:24] LABS: Absolute Lymphocyte Count 1.59 X10^3/uL (0.83-4.51); Absolute Neutrophil Count 3.7 X10^3/uL (2.0-7.7); Basophil# 0.03 X10^3/uL; Basophil% 0.5 % (0-1); Eosinophil# 0.14 X10^3/uL; Eosinophils% 2.4 % (0-5); Hematocrit 34.7 % (37-47); Hemoglobin 11.1 g/dL (12.0-15.0); Lymphocyte # 1.59 X10^3/ul (0.83-4.51); Lymphocyte % 27.1 % (19-41); Mean Corpuscular Hgb 32.7 pg (27.0-32.0); Mean Corpuscular Volume 102.4 fL (81-99); Mean Platelet Vol. 9.6 fl (6.2-12.0); Monocyte# 0.44 X10^3/uL; Monocyte% 7.5 % (0-10); NRBC Flagged by Analyzer 0 % (0-5); Neutrophil # 3.65 X10^3/uL (2.7-7.7); Neutrophil % 62.3 % (47-70); Platelet Count 172 K/mm3 (150-450); RBC Distribution Width CV 12.9 % (11.6-14.6); Red Blood Count 3.39 M/mm3 (4.2-5.4); White Blood Count 5.9 K/mm3 (4.4-11.0)
[2023-06-12 05:47] LABS: Anion Gap 0 (5-15); BUN 18 mg/dL (7-18); BUN/Creat Ratio 18.9 RATIO (10-20); Chloride 114 mmol/L (98-107); Creatinine, Serum 0.95 mg/dL (0.55-1.02); EST Glomerular Filtration Rate 61 mL/min (>60); Est Glom Filt Rate - Afr Amer 73 mL/min (>60); Estimated Creatinine Clearance 51.09 ml/min; Glucose 111 mg/dL (74-106); Sodium Level 141 mmol/L (136-145)
[2023-06-12 08:17] VITALS: BP 116/62; PULSE 65; RESP 12; TEMP 36.9; O2SAT 95
[2023-06-12 08:20] VITALS: BP 116/62; PULSE 64
[2023-06-12] MEDS: Pantoprazole Sodium 20 MG Tablet PO (08:20)
[2023-06-12] MEDS: Ranolazine 500 MG Tablet 1000 MG PO (08:20)
[2023-06-12] MEDS: Metoprolol(XL)Succ 25 MG Tablet PO (08:20)
[2023-06-12] MEDS: hydroCHLOROthiazide 25 MG Tablet PO (08:21)
[2023-06-12] MEDS: NIFEdipine 30 MG Tablet PO (08:21)
[2023-06-12] MEDS: Losartan Potassium 100 MG Tablet PO (08:21)
[2023-06-12] MEDS: Isosorbide Mononitrate 60 MG Tablet PO (08:21)
[2023-06-12] MEDS: levETIRAcetam 500 MG Tablet PO (08:21)
[2023-06-12] MEDS: Clopidogrel Bisulfate 75 MG Tablet PO (08:21)
[2023-06-12] MEDS: Gabapentin 100 MG Capsule 200 MG PO (08:29)
[2023-06-12 09:41] VITALS: BP 123/64; BP 127/77; BP 145/73
[2023-06-12 11:50] VITALS: BP 110/67; PULSE 63; RESP 14; TEMP 37.1; O2SAT 96
--- NOTE | 2023-06-12 12:37 | CASEMGMT ---
Met with patient to complete JIMNEEZ form. JIMENEZ form explained to? ? ?who voiced understanding and signed form. Original form placed in pt?s chart and copy provided to?patient. Parisa Payne, Discharge Planning Asst
--- NOTE | 2023-06-12 13:15 | CASEMGMT ---
Patient has order for discharge. RN CM in to discuss needs at discharge, family at bedside. Reviewed progress with therapy, SBA 40ft. Patient denies needs or help at discharge. Patient had no further questions or concerns.
--- NOTE | 2023-06-12 13:42 | PHA.DC.MR.R ---
Pharmacy [facility] Med Reconciliation Pharmacy Service has performed discharge medication reconciliation for this patient. The patient's discharge medication list was reviewed for discrepancies and discrepancies were resolved. Medications at Discharge Home Medications nitroglycerin 0.4 mg sublingual tablet 0.4 mg sublingual PRN PRN Cardiac/Chest Pain ##25 02/01/21 baclofen 5 mg tablet 2.5 - 5 mg PO TID PRN Spasms 09/12/21 docusate sodium 100 mg capsule 200 mg PO QHS 09/12/21 hydroxyzine HCl 25 mg tablet 25 mg PO PRN PRN Itching 09/12/21 oxycodone-acetaminophen 7.5 mg-325 mg tablet 1 tab PO Q6H PRN Pain 09/12/21 ondansetron 4 mg disintegrating tablet 4 mg PO Q8H PRN PRN Nausea #10 tabs 10/02/21 citalopram 20 mg tablet 20 mg PO QHS 12/12/21 acetaminophen 500 mg capsule 1,000 mg (2 x 500 mg) PO Q8H PRN PRN pain #30 caps 12/16/21 levetiracetam 500 mg tablet 500 mg PO BID #60 tabs 12/16/21 losartan 100 mg tablet 100 mg PO DAILY #90 tabs 08/11/22 metoprolol succinate 25 mg tablet,extended release 24 hr 25 mg PO DAILY #90 tabs 12/17/22 pantoprazole 20 mg tablet,delayed release 20 mg PO DAILY #90 TABLETS 12/17/22 gabapentin 100 mg capsule 200 mg PO BID nerve pain 01/27/23 nifedipine 30 mg tablet,extended release 30 mg PO DAILY #90 tabs 01/27/23 evolocumab 140 mg/mL subcutaneous pen injector (Naun Durbin) 140 mg subcut Q2W #6 mL 02/19/23 isosorbide mononitrate 60 mg tablet,extended release 24 hr 60 mg PO BID #180 tabs 03/23/23 ranolazine 1,000 mg tablet,extended release,12 hr 1,000 mg PO BID #180 tabs 03/23/23 clopidogrel 75 mg tablet See Rx Instructions .Route .COMPLEX #90 tabs 06/03/23 hydrochlorothiazide 25 mg tablet See Rx Instructions .Route .COMPLEX #90 tabs 06/03/23
--- NOTE | 2023-06-12 14:09 | DS.PCM_ITS ---
Providers Date of Admission: 06/11/23 Date of Discharge: 06/12/23 Primary Care Physician: Stacie Rivers, HENRIK Reason For Visit: DIZZINESS Diagnosis Discharge Diagnosis (1) Weakness: Status: Acute Code(s): R53.1 - Weakness (2) Dizziness: Status: Acute Code(s): R42 - Dizziness and giddiness Plan #Debility and weakness due to probable orthostasis * Admit to PCU under observation. * Patient says she was sitting up giving her some muscles when she felt dizzy and lightheaded and very weak. She was unable to get up and felt very frail so she was brought into the ED. * She felt too weak to even sit up for orthostatics to be checked. Vitals were stable and CBC and BMP were also unremarkable. * Hydrate gently with IV fluids. * Check orthostatics. * PT OT consult. Fall precautions. * #History of CAD s/p stents and CABG: On aspirin and high intensity statin. Also on Imdur #Hyperlipidemia: On statin and evolocumab #History of meningioma: Stable. #Depression: On citalopram #Hypertension: On losartan and metoprolol as well as nifedipine. IV hydralazine as needed. #History of seizures: On Keppra DVT prophylaxis Lovenox CODE STATUS: Full code * Patient counseled extensively about different types of CODE STATUS including full code, DNR CCA and DNR CCA. Patient elects to be full code. Total [id number] time 16 minutes. Medications at Discharge Home Medications nitroglycerin 0.4 mg sublingual tablet 0.4 mg sublingual PRN PRN Cardiac/Chest Pain ##25 02/01/21 baclofen 5 mg tablet 2.5 - 5 mg PO TID PRN Spasms 09/12/21 docusate sodium 100 mg capsule 200 mg PO QHS 09/12/21 hydroxyzine HCl 25 mg tablet 25 mg PO PRN PRN Itching 09/12/21 oxycodone-acetaminophen 7.5 mg-325 mg tablet 1 tab PO Q6H PRN Pain 09/12/21 ondansetron 4 mg disintegrating tablet 4 mg PO Q8H PRN PRN Nausea #10 tabs 10/02/21 citalopram 20 mg tablet 20 mg PO QHS 12/12/21 acetaminophen 500 mg capsule 1,000 mg (2 x 500 mg) PO Q8H PRN PRN pain #30 caps 12/16/21 levetiracetam 500 mg tablet 500 mg PO BID #60 tabs 12/16/21 losartan 100 mg tablet 100 mg PO DAILY #90 tabs 08/11/22 metoprolol succinate 25 mg tablet,extended release 24 hr 25 mg PO DAILY #90 tabs 12/17/22 pantoprazole 20 mg tablet,delayed release 20 mg PO DAILY #90 TABLETS 12/17/22 gabapentin 100 mg capsule 200 mg PO BID nerve pain 01/27/23 nifedipine 30 mg tablet,extended release 30 mg PO DAILY #90 tabs 01/27/23 evolocumab 140 mg/mL subcutaneous pen injector (Naun Dubrin) 140 mg subcut Q2W #6 mL 02/19/23 isosorbide mononitrate 60 mg tablet,extended release 24 hr 60 mg PO BID #180 tabs 03/23/23 ranolazine 1,000 mg tablet,extended release,12 hr 1,000 mg PO BID #180 tabs 03/23/23 clopidogrel 75 mg tablet See Rx Instructions .Route .COMPLEX #90 tabs 06/03/23 hydrochlorothiazide 25 mg tablet See Rx Instructions .Route .COMPLEX #90 tabs 06/03/23 Hospital Course Operations None Procedures None Summary of Care Provided Minutes Spent on Discharge: 45 Hospital Course: SOFIA KULKARNI, is a 78 F with a PMH as outlined who presents via the ED on 06/11/2023 with a complaint of weakness and dizziness as well as lightheadedness. Symptoms started on the morning of admission. She said her son came in to ask her for a massage of his back. WHilst doing this, she felt dizzy and lighteheaded; she says her checked her BP and it was running low, with BP in the 60s/40s./ She felt like she was going to pass out and felt very weak. She had had such episodes of dizziness and lightheadedness over the year. She denied any chest pain, palpitations, dizziness, nausea, vomiting or any other symptoms. Review of systems is otherwise negative. Vitals in the ED were BP of 126/47, VA of 59. RR of 16 and temp of 97.2F. She was saturating at 96% on room air. CBC was unremarkable and BMP showed Cr of 1.14 but was otherwise unremarkable. Urinalysis showed no evidence of UTI. Patient said she was even too weak to even do an orthostatic check. She was admitted to be managed for debility and weakness due to dizziness. She was hydrated with IV fluids and work with physical therapy. Patient did feel much better after she worked with physical therapy and was hydrated with IV fluids. She requested to be discharged home and was discharged on 06/12/2023. She has follow-up with her primary care doctor within 1 to 2 days. Patient was counseled to keep well-hydrated. Patient was seen and examined prior to discharge. She felt well and had no complaints. She had had an uneventful night. Review of symptoms otherwise negative. Labs and vitals reviewed. Medications reviewed and reconciled. Physical Exam Const alert, oriented x3 and no apparent distress General Appearance: cooperative, comfortable, well kempt and well developed HEENT normocephalic, head/scalp atraumatic, hearing grossly normal bilaterally, moist oral mucous membranes and oropharynx normal Mouth: oral and palatal mucosa normal Eyes PERRL and EOMs intact bilaterally Neck no lymphadenopathy and supple Lymph Lymphatic: no lymphadenopathy noted and no lymphedema noted Resp normal respiratory effort, normal air movement and clear to auscultation bilaterally Cardio regular rate, regular rhythm, S1 normal heart sound, S2 normal heart sound and no murmurs GI normal to inspection, nondistended, normoactive bowel sounds, soft to palpation, non-tender and non-distended Extremity normal capillary refill, no clubbing, cyanosis or edema and no calf tenderness General Extremity: no tenderness to palpation of joints or extremities Skin no rashes or lesions noted General Skin Exam: no breakdown Neuro oriented x3, CN's II-XII intact bilaterally, moves all extremities, no focal motor deficits, no sensory deficits noted and deep tendon reflexes 2+ bilaterally Motor Exam: strength 5/5 throughout and general weakness Psych thought process normal, cooperative and affect normal Appearance: appropriate Weight / BMI Weight Weight: 178 lb 12.718 oz Body Mass Index (BMI) 30.7 ABG / Lab / Microbiology Data 06/12/23 05:05 06/12/23 05:05 Laboratory: Laboratory Results - last 24 hr 06/11/23 14:20: Troponin I High Sens 10 06/11/23 16:30: Troponin I High Sens 11 06/11/23 20:19: Troponin I High Sens 11 06/12/23 05:05: WBC 5.9, RBC 3.39 L, Hgb 11.1 L, Hct 34.7 L, MCV 102.4 H, MCH 32.7 H, MCHC 32.0 D, RDW Std Deviation 48.0 H, RDW Coeff of Fredo 12.9, Plt Count 172, MPV 9.6, Immature Gran % (Auto) 0.200, Neut % (Auto) 62.3, Lymph % (Auto) 27.1, Sully % (Auto) 7.5, Eos % (Auto) 2.4, Baso % (Auto) 0.5, Absolute Neuts (auto) 3.7, Absolute Lymphs (auto) 1.59, Nucleated RBC % 0, Sodium 141, Potassium 4.0, Chloride 114 H, Carbon Dioxide 27.0, Anion Gap 0 L, BUN 18, Creatinine 0.95, Estim Creat Clear Calc 51.09, Est GFR (MDRD) Af Amer 73, Est GFR (MDRD) Non-Af 61, BUN/Creatinine Ratio 18.9, Glucose 111 H, Calcium 8.0 L Microbiology: Microbiology 06/11/23 08:47 Mucosa - Nose SARS-CoV-2, Influenza & RSV (PCR) - Final D/C Instructions Discharge Diet: Low fat / Low cholesterol Discharge Activity: Return to Normal Activity Weight Bearing Status: Weight bearing as tolerated Call your doctor if you observe: Fever of 101 or Higher, Shortness of breath, Dizziness, Swelling in the ankles and Chest pain Meaningful Use Info Meaningful Use Diagnoses (Choose all that apply): None applicable Discharge Plan Admission Admit Date/Time: 06/11/23 11:18 Primary Reason for Your Visit: debility and weakness Attending Provider: Marylu Cisneros Primary Care Provider: Stacie Rivers NP Instructions Patient Instructions: ED Weakness (Uncertain Cause) Discharge Orders/Prescriptions Prescriptions: Continued nifedipine 30 mg tablet extended release 30 mg PO DAILY Qty: 90 1RF docusate sodium 100 mg Capsule 200 mg PO QHS hydroxyzine HCl 25 mg Tablet 25 mg PO PRN PRN (Reason: Itching) oxycodone-acetaminophen 7.5-325 mg tablet 1 tab PO Q6H PRN (Reason: Pain) baclofen 5 mg tablet 2.5 - 5 mg PO TID PRN (Reason: Spasms) Patient Comments: TAKE 1/2 TO 1 TABLET BY MOUTH THREE TIMES A DAY NEEDED FOR SPASMS gabapentin 100 mg capsule 200 mg PO BID Patient Comments: TAKE 2 CAPSULES BY MOUTH 3 TIMES A DAY ondansetron 4 MG tablet 4 mg PO Q8H PRN PRN (Reason: Nausea) Qty: 10 0RF citalopram 20 mg tablet 20 mg PO QHS levetiracetam 500 mg Tablet 500 mg PO BID Qty: 60 0RF acetaminophen 500 mg capsule 1,000 mg PO Q8H PRN PRN (Reason: pain) Qty: 30 0RF nitroglycerin 0.4 mg tablet, sublingual 0.4 mg SL PRN PRN (Reason: Cardiac/Chest Pain) Qty: 25 4RF losartan 100 mg tablet 100 mg PO DAILY Qty: 90 3RF pantoprazole 20 mg tablet,delayed release (DR/EC) 20 mg PO DAILY Qty: 90 3RF metoprolol succinate 25 mg tablet extended release 24 hr 25 mg PO DAILY Qty: 90 3RF Repatha SureClick 140 mg/mL pen injector 140 mg subcut Q2W Qty: 6 3RF Rx Instructions: Request Reference Number: [id number]. REPATHA SURE INJ 140MG/ML is approved through 05/17/2024. Your patient may now fill this prescription and it will be covered. isosorbide mononitrate 60 mg tablet extended release 24 hr 60 mg PO BID Qty: 180 3RF ranolazine 1,000 mg tablet extended release 12 hr 1,000 mg PO BID Qty: 180 3RF hydrochlorothiazide 25 mg tablet See Rx Instructions .ROUTE .COMPLEX Qty: 90 3RF Dose Instruction: TAKE 1 TABLET BY MOUTH DAILY Rx Instructions: TAKE 1 TABLET BY MOUTH DAILY clopidogrel 75 mg tablet See Rx Instructions .ROUTE .COMPLEX Qty: 90 3RF Dose Instruction: TAKE 1 TABLET BY MOUTH DAILY Rx Instructions: TAKE 1 TABLET BY MOUTH DAILY Referrals / Follow Up: Stacie Rivers NP, ANALYSIS CONSULTANT-C [Primary Care Provider] - Within 1 Week Disposition Disposition (needs filled in before D/C Order can be placed): Home, Self Care Charges/Coding Visit Charges Inpatient E&M: 81415 Disch Hosp >30min
== END 2023-06-12 11:50 | disposition home or self-care (01) ==
LOC: ED 11:20 → PCU 12:13
PROVIDERS: Admitting Provider Student in an Organized Health Care Education/Training Program; Emergency Provider Emergency Medicine; PCP Nurse Practitioner Adult Health; Visit Provider Student in an Organized Health Care Education/Training Program
DX: R42 Dizziness and giddiness (principal); G40.909 Epilepsy, unspecified, not intractable, without status epilepticus; I10 Essential (primary) hypertension; R53.81 Other malaise; Z87.891 Personal history of nicotine dependence; R53.1 Weakness; I25.10 Atherosclerotic heart disease of native coronary artery without angina pectoris; M79.7 Fibromyalgia; E78.5 Hyperlipidemia, unspecified; Z79.899 Other long term (current) drug therapy; K21.9 Gastro-esophageal reflux disease without esophagitis; I25.2 Old myocardial infarction; Z79.02 Long term (current) use of antithrombotics/antiplatelets
CPT/HCPCS: 36415; 80048; 81001; 84484; 85025; 87040; 87631; 93005; 96361; 96374; 97161; 99221; 99285; J7030; P9612; A4216; G0378; J2405

== ENCOUNTER → 2023-09-08 | Outpatient (CLI) | payer MEDICARE, SELFPAY ==
[2022-07-22 13:42] VITALS: BMI 31.7
--- NOTE | 2023-09-10 11:51 | STRESSREP_ITS ---
Stress Test Report Date: 09/08/2023 Procedure: Pharmacologic stress nuclear imaging study Indications: Coronary artery disease Consent: Per the patient Procedure: The patient underwent pharmacologic (Regadenoson 0.4mg ) evaluation with a peak heart rate of 68 beats per minute (47%predicted maximal heart rate) and a peak blood pressure of 142/68 mmHg. The baseline ECG demonstrated sinus rhythm. The peak pharmacologic ECG demonstrated no ischemic changes. There were no cardiac dysrhythmias pretest, during pharmacologic infusion, or recovery. There was no complaint of chest discomfort during pharmacologic infusion or recovery. The patient was injected with 12.0 millicuries of technetium 99m Cardiolite and subsequently rest SPECT Cardiolite nuclear imaging was obtained in the horizontal long, vertical long, and short axis views. The patient underwent pharmacologic (Regadenoson) evaluation. The patient was injected with 36.0 millicuries of technetium 99m Cardiolite and subsequently stress SPECT Cardiolite nuclear imaging was obtained in the horizontal long, vertical long, and short axis views. A gated Cardiolite study at peak stress was obtained. The examination was stopped secondary to completion of protocol. Rest and stress SPECT Cardiolite nuclear imaging status post realignment, normalization, and attenuation correction demonstrate no fixed or reversible perfusion defects. There is end systolic thickening and brightening. The gated Cardiolite study demonstrates myocardial thickening and inward wall motion. The reported LVEF is 79%. Impression: 1. Pharmacologic (Regadenoson) evaluation 2. Peak pharmacologic ECG with no ischemic changes. 3. There were no cardiac dysrhythmias pretest, during pharmacologic infusion, or recovery. 5. Rest and stress SPECT Cardiolite nuclear imaging demonstrate relative uniform tracer uptake and myocardial perfusion appearing within normal limits. 6. The gated Cardiolite study reports an LVEF of 79%. This note was generated with [employer] software. It may contain incorrect words, spelling, and punctuation that were not noted in checking the note before signing.
== END | disposition home or self-care (01) ==
LOC: CVS 06:59
PROVIDERS: PCP Nurse Practitioner Adult Health; Referring Provider Internal Medicine Cardiovascular Disease; Visit Provider Internal Medicine Cardiovascular Disease
DX: R06.09 Other forms of dyspnea (principal); R42 Dizziness and giddiness; I25.10 Atherosclerotic heart disease of native coronary artery without angina pectoris; Z95.1 Presence of aortocoronary bypass graft; Z95.5 Presence of coronary angioplasty implant and graft; I10 Essential (primary) hypertension
CPT/HCPCS: 78452; 93017; A9500; A4216; J2785

== ENCOUNTER → 2023-12-11 | Outpatient (CLI) | payer MEDICARE, SELFPAY ==
[2022-07-22 13:42] VITALS: BMI 31.7
[2023-12-11 16:52] LABS: Absolute Lymphocyte Count 2.14 X10^3/uL (0.83-4.51); Basophil# 0.04 X10^3/uL; Basophil% 0.6 % (0-1); Eosinophil# 0.17 X10^3/uL; Eosinophils% 2.4 % (0-5); Hematocrit 37.7 % (37-47); Hemoglobin 12.4 g/dL (12.0-15.0); Lymphocyte # 2.14 X10^3/ul (0.83-4.51); Lymphocyte % 30.8 % (19-41); Mean Corp Hgb Conc 32.9 g/dL (32-36); Mean Corpuscular Hgb 33.4 pg (27.0-32.0); Mean Corpuscular Volume 101.6 fL (81-99); Mean Platelet Vol. 9.7 fl (6.2-12.0); Monocyte# 0.59 X10^3/uL; Monocyte% 8.5 % (0-10); NRBC Flagged by Analyzer 0 % (0-5); Neutrophil # 3.98 X10^3/uL (2.7-7.7); Neutrophil % 57.4 % (47-70); Platelet Count 210 K/mm3 (150-450); RBC Distribution Width CV 12.8 % (11.6-14.6); RBC Distribution Width SD 47.6 fl (35.1-43.9); Red Blood Count 3.71 M/mm3 (4.2-5.4); White Blood Count 6.9 K/mm3 (4.4-11.0)
[2023-12-11 17:24] LABS: BNP,B-Type NATRIURETIC PEPTIDE 222.5 pg/mL (0-100)
[2023-12-11 17:29] LABS: Anion Gap 4 (5-15); BUN 18 mg/dL (7-18); BUN/Creat Ratio 18.9 RATIO (10-20); Calcium,Total 8.6 mg/dL (8.5-10.1); Chloride 109 mmol/L (98-107); Creatinine, Serum 0.95 mg/dL (0.55-1.02); EST Glomerular Filtration Rate 60 mL/min (>60); Est Glom Filt Rate - Afr Amer 73 mL/min (>60); Glucose 88 mg/dL (74-106); Magnesium 2.2 mg/dL (1.6-2.6); Sodium Level 141 mmol/L (136-145); Troponin-I HS 9 pg/mL (3.0-54.0)
== END | disposition home or self-care (01) ==
LOC: LAB 16:15
PROVIDERS: PCP Nurse Practitioner Adult Health; Referring Provider Nurse Practitioner Family; Visit Provider Nurse Practitioner Family
DX: Z95.1 Presence of aortocoronary bypass graft (principal); Z95.5 Presence of coronary angioplasty implant and graft; R07.9 Chest pain, unspecified; R06.09 Other forms of dyspnea
CPT/HCPCS: 36415; 80048; 83735; 83880; 84484; 85025

== ENCOUNTER 2024-01-28 01:46 | Emergency (ER) | payer MEDICARE, SELFPAY ==
[2022-07-22 13:42] VITALS: BMI 31.7
[2024-01-28 01:46] VITALS: BP 181/74; PULSE 64; RESP 15; O2SAT 93
[2024-01-28 01:47] VITALS: BP 182/67; PULSE 68; RESP 12; TEMP 36.8; O2SAT 94
[2024-01-28 01:57] VITALS: O2SAT 93
--- NOTE | 2024-01-28 01:57 | EKG12_ITS ---
Test Reason : CP Blood Pressure : / mmHG Vent. Rate : 065 BPM Atrial Rate : 065 BPM P-R Int : 168 ms QRS Dur : 090 ms QT Int : 466 ms P-R-T Axes : 036 030 052 degrees QTc Int : 484 ms Normal sinus rhythm Normal ECG Confirmed by RUKHSANA CHAVEZ MD ([id number]), commissioning editor TERRENCE YOUNG ([id number]) on 01/30/2024 8:08:33 AM Referred By: VIVEK Confirmed By:RUKHSANA CHAVEZ MD
--- NOTE | 2024-01-28 01:57 | RAD_ITS ---
EXAM: XR CHEST, 1 VIEW CLINICAL INDICATION: CHEST PAIN CHEST PAIN TECHNIQUE: Frontal view of the chest. COMPARISON: Chest x-ray 12/12/2021. FINDINGS: LUNGS AND PLEURAL SPACES: Unremarkable. No consolidation or edema. No pneumothorax. No effusion. HEART: The heart is borderline in size. MEDIASTINUM: Central airways and mediastinal contour are unremarkable. BONES/JOINTS: There are sternotomy wires. There are multilevel degenerative changes in the visualized spine. No acute fracture. SOFT TISSUES: Unremarkable. VASCULATURE: There is atherosclerotic calcification of the aortic arch. RAD/Chest 1 View (Portable) IMPRESSION: No acute findings in the chest. Electronically Signed: Antoni Melara MD at 3:40 EDT Reading Location ID and State: [facility] / [place] , Service support ,
--- NOTE | 2024-01-28 02:05 | ED.VIS.CHEST ---
HPI History of Present Illness Chief Complaint: Chest Pain Informant: patient and family Onset/Context/Timing Onset: Today and Hours Activity at onset: gradual Timing: Continuous Quality: Positive for Aching Location: Substernal Current Severity: Mild Maximum Severity: Mild Worsened By: Movement of Torso Relieved By: Remaining Still and NTG (Patient took 2 nitro at home without relief.) Associated Symptoms: Negative for Nausea, Vomiting, Diaphoresis, Lightheadedness, Acid Reflux or Palpitations Narrative Narrative: 78-year-old female past medical history of hypertension, CAD, [place], triple bypass around 2005 at [facility] And cardiac stents x 3 around 2014. She is on Plavix and aspirin. Tonight at home while resting in bed developed midsternal chest pain that radiated to both arms. Took 2 nitroglycerin without relief. Still having discomfort. Was brought in by squad and given aspirin by them. Prior Similar Symptoms: Yes Recent Illness/Hospitalization: No CVD Risk Factors: Positive for Hypertension PE Risk Factors: Negative for Recent Travel/Surgery, Recent Immobilization, Prior DVT or PE, Cancer or OCP + Smoking + >/=35 TAD Risk Factors: Negative for Marfan's Syndrome [facility] Medical History History of hypertension History of meningioma Dyslipidemia Coronary artery disease Dizziness Carotid artery disease Seizure Depression Former smoker Myocardial infarct Accelerating angina History of non-ST elevation myocardial infarction (NSTEMI) (05/01/19) Chronic narcotic use Chronic low back pain Osteoarthritis Fibromyalgia Tobacco dependence in remission GERD (gastroesophageal reflux disease) Obesity (BMI 30.0-34.9) HLD (hyperlipidemia) Unstable angina Brain tumor Essential (primary) hypertension Atherosclerosis of coronary artery of [place] heart without angina pectoris Neuropathy Leg cramps Stomach ulcer Plantar fasciitis Arthritis Home Medications ?Medication ?Instructions ?Recorded ?Last Taken ?Type baclofen 5 mg tablet 2.5 - 5 mg PO TID PRN Spasms 09/12/21 05/19/23 History oxycodone-acetaminophen 7.5 mg-325 1 tab PO Q6H PRN Pain 09/12/21 06/10/23 History mg tablet ondansetron 4 mg disintegrating 4 mg PO Q8H PRN PRN Nausea #10 tabs 10/02/21 06/10/23 Rx tablet citalopram 20 mg tablet 20 mg PO QHS 12/12/21 06/10/23 History acetaminophen 500 mg capsule 1,000 mg (2 x 500 mg) PO Q8H PRN 12/16/21 06/10/23 Rx PRN pain #30 caps levetiracetam 500 mg tablet 500 mg PO BID #60 tabs 12/16/21 06/10/23 Rx gabapentin 100 mg capsule 200 mg PO BID nerve pain 01/27/23 06/10/23 History isosorbide mononitrate 60 mg 60 mg PO BID #180 tabs 03/23/23 06/10/23 Rx tablet,extended release 24 hr ranolazine 1,000 mg 1,000 mg PO BID #180 tabs 03/23/23 06/10/23 Rx tablet,extended release,12 hr clopidogrel 75 mg tablet 75 mg PO DAILY 08/10/23 Unknown History hydrochlorothiazide 25 mg tablet 25 mg PO DAILY 08/10/23 Unknown History metoprolol succinate 50 mg 50 mg PO DAILY #90 tabs 08/10/23 Unknown Rx tablet,extended release 24 hr losartan 100 mg tablet 100 mg PO DAILY #90 tabs 08/27/23 Unknown Rx amlodipine 5 mg tablet 5 mg PO DAILY #90 tabs 12/11/23 Unknown Rx docusate sodium 100 mg capsule 100 mg PO Q OTHER DAY PRN 12/11/23 Unknown History evolocumab 140 mg/mL subcutaneous 140 mg subcut Q2W #6 mL 12/14/23 Unknown Rx pen injector (Naun Durbin) nitroglycerin 0.4 mg sublingual 0.4 mg sublingual PRN PRN 01/27/24 Unknown Rx tablet Cardiac/Chest Pain ##25 Allergy/AdvReac Type Severity Reaction Status Date / Time isometheptene (From Midrin) Allergy shaking Verified 01/27/24 14:04 Sulfa (Sulfonamide Allergy throat Verified 01/27/24 14:04 Antibiotics) Swelling ezetimibe (From Zetia) AdvReac Severe Pain in Verified 01/27/24 14:04 joints Yhhfssr-JMV-ZsG Reductase AdvReac Severe myalgias Verified 01/27/24 14:04 Inhibitor (Ezjqros-Asv-Kcn Reductase Inhibitor) codeine AdvReac Nausea/Vom/ Verified 01/27/24 14:04 Diarrhea dichloralphenazone (From AdvReac shaking Verified 01/27/24 14:04 Midrin) fish oil AdvReac Other Verified 01/27/24 14:04 ibuprofen AdvReac stomachache Verified 01/27/24 14:04 s topiramate (From Topamax) AdvReac I felt Verified 01/27/24 14:04 crazy Family History Grandmother Hypertension Father CVA (cerebral vascular accident) Heart disease Mother Hypertension Cancer Brother Cancer Sister Hypertension Surgical History History of appendectomy History of cholecystectomy History of left heart catheterization (08/02/20) History of bladder surgery H/O laminectomy H/O coronary artery bypass surgery (2006) History of coronary artery stent placement (05/02/19) History of craniotomy History of fusion of cervical spine History of hysterectomy History of laparoscopic cholecystectomy Social History household members: spouse Smoking Status: Former smoker how long ago did patient quit smoking: Quit 15 years prior, prior 1-1.5 ppd since teen. alcohol intake: former substance use type: does not use caffeine: Yes Type: coffee Number of servings: 3 ROS ROS ED ROS Narrative Denies recent illness. Constitutional Constitutional ED: Denies chills or fever(s) Eyes Eyes: Reports none ENT ENT ED: Denies ear pain Cardiovascular Cardiovascular: Reports as per HPI and chest pain; Denies palpitations Respiratory/Chest Respiratory/Chest: Denies cough or dyspnea Gastrointestinal Gastrointestinal: Denies abdominal pain Genitourinary Genitourinary ED: Denies dysuria or hematuria Musculoskeletal Musculoskeletal: Denies arthralgias Integumentary Denies abscess Neurologic Neurologic: Denies headache(s) Psychiatric Psychiatric: Reports anxiety; Denies depression Endocrine Endocrinology: Denies cold intolerance Hematologic/Lymphatic Hematologic/Lymphatic: Denies easy bleeding Allergic/Immunologic Allergic/Immunologic ED: Denies mouth swelling EXAM Physical Exam Narrative Exam Narrative: 78-year-old female vital signs stable afebrile. Pulse ox 94% on room air no hypoxia. Sitting upright in bed. Multiple family members present in the room. H EENT exam unremarkable. Moist mucous membranes. Neck nontender. No lymphadenopathy. Lungs clear to auscultation bilaterally. Heart regular rate and rhythm rate about 65 no murmur. She has a well-healed sternotomy incision. She has tenderness along her sternum consistent with musculoskeletal chest wall pain. No crepitance. No subcu air. No redness or warmth. Abdomen soft nontender. Normal bowel sounds no peritoneal signs. Moving all 4 extremities. Calves are nontender without edema or cords. Dorsi and plantarflexion intact. 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 Equal and symmetrical brisk radial pulses. Back nontender. She has pain with sitting upright in her chest consistent with musculoskeletal pain. Neurologically she is awake and alert. No focal motor deficits. Answering questions following commands. Const Vital Signs: 01/28/24 01:46 01/28/24 01:47 01/28/24 01:57 Temperature 98.2 F Temperature Source Temporal Pulse Rate 64 68 Respiratory Rate 15 12 Respiratory Effort Blood Pressure 181/74 H 182/67 H Blood Pressure Mean 109 105 Pulse Ox 93 94 93 Oxygen Delivery Method Room Air Room Air Room Air 01/28/24 02:18 01/28/24 02:46 01/28/24 04:00 Temperature Temperature Source Pulse Rate 63 58 L Respiratory Rate 18 12 Respiratory Effort Normal Non-Labored Blood Pressure 150/58 H 131/75 H Blood Pressure Mean 88 93 Pulse Ox 96 98 Oxygen Delivery Method Room Air Room Air Positive well nourished and well developed; Negative for cachectic, contractures or unkempt General Appearance ED: well developed and NAD; Negative for unkempt, cachectic, contractures or pallor Nutritional Appearance: Negative for cachectic HEENT Reports moist mucous membranes normocephalic and atraumatic; Negative for trauma or tenderness Eyes PERRL and EOMs intact bilaterally General Eye ED: Negative for pale conjunctiva or scleral icterus Neck no lymphadenopathy, supple and no JVD General: Negative for tenderness Chest Wall inspection of chest normal; Negative for palpation of chest normal Chest Narrative: Reproducible midsternal chest pain. Consistent with musculoskeletal pain. No redness or warmth. No crepitance. No subcu air. Well-healed prior sternotomy. Chest: tenderness Resp normal respiratory effort and clear to auscultation bilaterally Cardio regular rate, regular rhythm, S1 normal heart sound, S2 normal heart sound and no murmurs Peripheral Pulses: pulses 2+ throughout GI normal to inspection, nondistended, normoactive bowel sounds, soft to palpation, non-tender, non-distended and no masses Back/Spine no CVA tenderness and no thoracic nor lumbar tenderness Extremity normal to inspection Extremity Narrative: Bilateral equal and symmetrical radial pulses. General Extremety ED: Negative for edema, pulses abnormal or tenderness General Extremity: Negative for edema or pulses abnormal Neuro oriented x3 and CN's II-XII intact bilaterally Sensorium / Orientation: awake, alert, oriented to person, oriented to place and oriented to time; Negative for confused, lethargic or stuporous Motor Exam: strength 5/5 throughout Psych mental status grossly normal Appearance: Negative for unkempt Skin no rashes or lesions noted and no wounds General Skin Exam: Negative for jaundice or pallor Rashes: No rashes noted Trauma: Negative for abrasion Heart Score History: Slightly/Non-Suspicious ECG: Normal Age: >/= 65 years Risk Factors: >/= 3 Risk Factors or History of CAD Troponin: </= Normal Limit Score: 4 MDM MDM MDM Narrative Medical decision making narrative: 78-year-old female known coronary disease with prior triple bypass and reportedly 3 cardiac stents done about 8 to 9 years ago. On Plavix and aspirin. Complaining of nonexertional chest pain tonight. No relief with nitro x 2. There is reproducible chest pain that the pain she describes. She will undergo a cardiac workup. She had a recent nuclear stress test that was negative in August. She cannot remember her last heart catheterization. Repeat exam patient is doing well at 4:50 AM. Nitro at home did not give her any significant relief. Morphine IV here has improved her discomfort. Labs are unremarkable. Troponins x 2 are normal. Given that she has reproducible pain. Negative cardiac workup including a 2-hour troponin. Patient be discharged to home. Outpatient follow-up with her distributor advertising material or her primary care physician. She also recently saw her distributor advertising material the last few days who cleared her for dental surgery. History & Record Review Discussion w/independent historian: Patient and Family Additional record(s) reviewed:: Prior inpatient record, Prior outpatient record, Prior ED visit and Prior labs Lab Data Attestation: I reviewed the patient's lab results. Lab results narrative: CBC showed a white count 7. H&H of 12 and 35. Platelets 200. Electrolytes show gap 9. BUN 22 creatinine 1. Glucose 130. Initial troponin 9. 2-hour troponin equals 19. Chest x-ray chronic changes. Normal cardiac silhouette. Normal lung jacome. Labs: Laboratory Results - last 24 hr 01/28/24 01/28/24 02:03 04:10 WBC 7.4 RBC 3.58 L Hgb 12.2 Hct 35.8 L MCV 100.0 H MCH 34.1 H MCHC 34.1 RDW Std Deviation 45.5 H RDW Coeff of Fredo 12.5 Plt Count 200 MPV 9.8 Immature Gran % (Auto) 0.300 Neut % (Auto) 70.4 H Lymph % (Auto) 19.4 [place] % (Auto) 7.6 Eos % (Auto) 1.9 Baso % (Auto) 0.4 Absolute Neuts (auto) 5.2 Absolute Lymphs (auto) 1.43 Nucleated RBC % 0 Sodium 143 Potassium 3.7 Chloride 111 H Carbon Dioxide 23.0 Anion Gap 9 BUN 22 H Creatinine 1.06 H Est GFR (MDRD) Af Amer 65 Est GFR (MDRD) Non-Af 53 L BUN/Creatinine Ratio 20.8 H Glucose 130 H Calcium 8.1 L Troponin I High Sens 9 19 Radiography Chest X-Ray - ED: 1 View, Read by ED Physician, Normal, Heart, Lungs, Mediastinum, Bony Structures, No Acute Disease and Chronic Changes Diagnostic Testing: Clinical Impression(s) from Imaging Studies Chest X-Ray 01/28/24 01:57 IMPRESSION: No acute findings in the chest. Electronically Signed: Antoni Melara MD at 3:40 EDT Reading Location ID and State: [facility] / [place] , Service support , Chest x-ray, portable, single view, interpreted by myself shows normal cardiac silhouette. Prior sternotomy. Normal lung jacome. Chronic changes. No acute process. Rhythm Strip Rhythm Strip: Sinus Rhythm Rate: 65 Ectopy: None EKG Initial EKG: Attestation: I personally reviewed and interpreted this EKG as follows: Comments: Normal sinus rhythm rate of 65 no acute signs of [place] or ischemia. Unchanged from a prior EKG from May of this year. Prior EKG tracings: available for review Prior: Unchanged Discharge Plan Triage Chief Complaint: Chest Pain ED Provider: Manan Alexander Dx/Rx/DC Orders Clinical Impression: Chest pain, History of coronary artery stent placement, H/O coronary artery bypass surgery, Acute chest wall pain Instructions: Coronary Artery Bypass Surgery, ED Chest Wall Pain, Costochondritis Prescriptions: No Action clopidogrel 75 mg tablet 75 mg PO DAILY hydrochlorothiazide 25 mg tablet 25 mg PO DAILY metoprolol succinate 50 mg tablet extended release 24 hr 50 mg PO DAILY Qty: 90 3RF amlodipine 5 mg tablet 5 mg PO DAILY Qty: 90 3RF nitroglycerin 0.4 mg tablet, sublingual 0.4 mg SL PRN PRN (Reason: Cardiac/Chest Pain) Qty: 25 4RF oxycodone-acetaminophen 7.5-325 mg tablet 1 tab PO Q6H PRN (Reason: Pain) baclofen 5 mg tablet 2.5 - 5 mg PO TID PRN (Reason: Spasms) Patient Comments: TAKE 1/2 TO 1 TABLET BY MOUTH THREE TIMES A DAY NEEDED FOR SPASMS gabapentin 100 mg capsule 200 mg PO BID Patient Comments: TAKE 2 CAPSULES BY MOUTH 3 TIMES A DAY docusate sodium 100 mg capsule 100 mg PO Q OTHER DAY PRN ondansetron 4 MG tablet 4 mg PO Q8H PRN PRN (Reason: Nausea) Qty: 10 0RF citalopram 20 mg tablet 20 mg PO QHS levetiracetam 500 mg Tablet 500 mg PO BID Qty: 60 0RF acetaminophen 500 mg capsule 1,000 mg PO Q8H PRN PRN (Reason: pain) Qty: 30 0RF isosorbide mononitrate 60 mg tablet extended release 24 hr 60 mg PO BID Qty: 180 3RF ranolazine 1,000 mg tablet extended release 12 hr 1,000 mg PO BID Qty: 180 3RF losartan 100 mg tablet 100 mg PO DAILY Qty: 90 3RF Repatha SureClick 140 mg/mL pen injector 140 mg subcut Q2W Qty: 6 3RF Primary Care Provider: Stacie Rivers NP Referrals: Stacie Rivers NP, [employer] [Primary Care Provider] - Activity Restrictions/Additional Instructions: Labs, chest x-ray and EKG are unremarkable. Both heart enzymes were normal. This appears to be reproducible chest wall pain. Ice to your chest wall. Tylenol for pain. Follow-up with your doctor if not improving or return if feeling worse. Print Language: Armenian Disposition Disposition: Home, Self Care
[2024-01-28 02:12] LABS: Absolute Lymphocyte Count 1.43 X10^3/uL (0.83-4.51); Absolute Neutrophil Count 5.2 X10^3/uL (2.0-7.7); Basophil# 0.03 X10^3/uL; Basophil% 0.4 % (0-1); Eosinophil# 0.14 X10^3/uL; Eosinophils% 1.9 % (0-5); Hematocrit 35.8 % (37-47); Hemoglobin 12.2 g/dL (12.0-15.0); Lymphocyte # 1.43 X10^3/ul (0.83-4.51); Lymphocyte % 19.4 % (19-41); Mean Corp Hgb Conc 34.1 g/dL (32-36); Mean Corpuscular Hgb 34.1 pg (27.0-32.0); Mean Platelet Vol. 9.8 fl (6.2-12.0); Monocyte# 0.56 X10^3/uL; Monocyte% 7.6 % (0-10); NRBC Flagged by Analyzer 0 % (0-5); Neutrophil # 5.18 X10^3/uL (2.7-7.7); Neutrophil % 70.4 % (47-70); Platelet Count 200 K/mm3 (150-450); RBC Distribution Width CV 12.5 % (11.6-14.6); RBC Distribution Width SD 45.5 fl (35.1-43.9); Red Blood Count 3.58 M/mm3 (4.2-5.4); White Blood Count 7.4 K/mm3 (4.4-11.0)
[2024-01-28 02:29] LABS: Anion Gap 9 (5-15); BUN 22 mg/dL (7-18); BUN/Creat Ratio 20.8 RATIO (10-20); Calcium,Total 8.1 mg/dL (8.5-10.1); Chloride 111 mmol/L (98-107); Creatinine, Serum 1.06 mg/dL (0.55-1.02); EST Glomerular Filtration Rate 53 mL/min (>60); Est Glom Filt Rate - Afr Amer 65 mL/min (>60); Glucose 130 mg/dL (74-106); Potassium 3.7 mmol/L (3.5-5.1); Sodium Level 143 mmol/L (136-145); Troponin-I HS (w/2H Reflex) 9 pg/mL (3.0-54.0)
[2024-01-28] MEDS: Morphine 4 MG/ML Syringe IV (02:30)
[2024-01-28] MEDS: Ondansetron 4 MG/2 ML Vial IV (02:36)
[2024-01-28 02:46] VITALS: BP 150/58; PULSE 63; RESP 18; O2SAT 96
[2024-01-28 04:00] VITALS: BP 131/75; PULSE 58; RESP 12; O2SAT 98
[2024-01-28 04:05] LABS: Reflex Troponin-HS? (from REC) Y
[2024-01-28 04:37] LABS: Troponin-I HS 19 pg/mL (3.0-54.0)
[2024-01-28 04:57] VITALS: BP 131/64; PULSE 54; RESP 16; TEMP 36.5; O2SAT 94
== END 2024-01-28 04:59 | disposition home or self-care (01) ==
PROVIDERS: Emergency Provider Emergency Medicine; PCP Nurse Practitioner Adult Health; Visit Provider Emergency Medicine
DX: R07.89 Other chest pain (principal); I25.10 Atherosclerotic heart disease of native coronary artery without angina pectoris; E78.5 Hyperlipidemia, unspecified; Z79.82 Long term (current) use of aspirin; Z95.5 Presence of coronary angioplasty implant and graft; Z79.02 Long term (current) use of antithrombotics/antiplatelets; Z87.891 Personal history of nicotine dependence; I10 Essential (primary) hypertension; I25.2 Old myocardial infarction; F32.A Depression, unspecified; Z79.899 Other long term (current) drug therapy; Z90.49 Acquired absence of other specified parts of digestive tract; Z90.710 Acquired absence of both cervix and uterus
CPT/HCPCS: 71045; 80048; 84484; 85025; 93005; 96374; 96375; 99284; A4216; J2405

== ENCOUNTER → 2024-02-23 | Outpatient (CLI) | payer MEDICARE, SELFPAY ==
[2022-07-22 13:42] VITALS: BMI 31.7
[2024-02-23 14:15] LABS: Hematocrit 37.9 % (37-47); Hemoglobin 12.7 g/dL (12.0-15.0); Mean Corp Hgb Conc 33.5 g/dL (32-36); Mean Corpuscular Hgb 33.6 pg (27.0-32.0); Mean Corpuscular Volume 100.3 fL (81-99); Mean Platelet Vol. 9.7 fl (6.2-12.0); Platelet Count 197 K/mm3 (150-450); RBC Distribution Width CV 12.4 % (11.6-14.6); RBC Distribution Width SD 45.1 fl (35.1-43.9); Red Blood Count 3.78 M/mm3 (4.2-5.4); White Blood Count 4.7 K/mm3 (4.4-11.0)
[2024-02-23 14:23] LABS: International Normalized Ratio 1.1; Prothrombin Time (Protime)PT. 13.7 SECONDS (11.7-14.9)
[2024-02-23 14:36] LABS: Anion Gap 9 (5-15); BUN 16 mg/dL (7-18); BUN/Creat Ratio 15.2 RATIO (10-20); Calcium,Total 9.1 mg/dL (8.5-10.1); Chloride 103 mmol/L (98-107); Creatinine, Serum 1.05 mg/dL (0.55-1.02); EST Glomerular Filtration Rate 54 mL/min (>60); Est Glom Filt Rate - Afr Amer 65 mL/min (>60); Glucose 96 mg/dL (74-106); Sodium Level 138 mmol/L (136-145)
== END | disposition home or self-care (01) ==
LOC: LAB 13:33
PROVIDERS: PCP Nurse Practitioner Adult Health; Referring Provider Nurse Practitioner Gerontology; Visit Provider Nurse Practitioner Gerontology
DX: I25.10 Atherosclerotic heart disease of native coronary artery without angina pectoris (principal); I77.9 Disorder of arteries and arterioles, unspecified; R42 Dizziness and giddiness; I10 Essential (primary) hypertension
CPT/HCPCS: 36415; 80048; 85027; 85610

== ENCOUNTER 2024-02-24 15:11 | Observation (INO) | payer MEDICARE, SELFPAY ==
[2022-07-22 13:42] VITALS: BMI 31.7
[2024-02-24 09:54] VITALS: BMI 30.7
[2024-02-24 15:13] LABS: ACT Activated Clotting Time 226 sec (74-137)
[2024-02-24 15:13] LABS: ACT Activated Clotting Time 269 sec (74-137)
[2024-02-24 15:13] LABS: ACT Activated Clotting Time 275 sec (74-137)
--- NOTE | 2024-02-24 15:40 | CL.I_ITS ---
Patient Name: SOFIA KULKARNI Study Date: 02/24/2024 Performing: Leta Childs MD Ht: 64 inches 162.56 cm : 1945 Wt: 178.99 lbs 81.19 kg Age: 79 Gender: female BSA: 1.87 PROCEDURE(S) PERFORMED DC04-(91820)LHC/COR/CABG IC14-(61218/[id number])GRAFT-MAEGAN AND/OR PTCA, SINGLE GRAFT CLINICAL PROFILE AND CO-MORBIDITIES Indications: Worsening Angina Heart Failure: None CAD Presentations: Unstable angina. CONCLUSIONS 40% Prox, 95% Mid LAD; CHIU to lAD 50% distal Stent to LCX patent; SVG to OM1 95% Prox, [place] OM 90% distal to SVG anastomisis Successful PTCA/MAEGAN pROX svg TO om USING Chely fRONTIER 3.0X12 MM Successful MAEGAN OM using Chely Boron 2.25x26 mm, post-dilated using 2.5 mm balloon RECOMMENDATIONS ASA Indefinitley P2Y12 inhibitors for atleast 6 months DESCRIPTION OF PROCEDURE The patient arrived to the procedure lab. The risks and benefits of the procedure as well as a full description of our services here and lack of surgical backup were fully explained to the patient and/or their significant other prior to the catheterization. The Timeout was completed, verifying the correct patient and procedure. The patient's procedural site was prepped and draped in the usual fashion. Local anesthetic was given subcutaneously to right radial region with Lidocaine 2%. Local anesthetic was given subcutaneously to left radial region with Lidocaine 2%. Using a modified Seldinger technique, arterial access was obtained via the right radial artery, a 6Fr sheath was inserted., arterial access was obtained via the left radial artery, a 6Fr sheath was inserted.. Left Coronary Artery selective angiography was performed in multiple views using a 5 Fr. 4.0 [place] catheter. Right Coronary Artery selective angiography was then performed in multiple views using a 5 Fr. 4.0 [place] catheter. Saphenous Vein graft to the OM 1 selective angiography was performed in multiple views using a 5 Fr. 4.0 [place] catheter. Saphenous Vein graft to the OM 2 selective angiography was performed in multiple views using a 5 Fr. 4.0 [place] catheter. Left internal mammary artery graft to the LAD selective angiography was performed in multiple views using a 5 Fr. IM catheter jr4 Guide catheter was inserted and engaged into the SVG to the OM 2.0x12 emerge Balloon catheter was inserted. PTCA balloon inflated at 10 atms for 10 secs. 2.25x26 chely Drug Eluting stent was inserted. Angiogram performed post stent deployment. 2.5x12 NC emerge Balloon catheter was inserted post stent. PTCA balloon inflated at 14 atms for 10 secs. PTCA balloon inflated at 14 atms for 5 secs. PTCA balloon inflated at 14 atms for 10 secs. 3.0x12 chley Drug Eluting stent was inserted. Angiogram performed post stent deployment. The right radial arterial sheath was pulled and a TR Band was applied for hemostasis with 15cc of air placed in band. The left radial arterial sheath was pulled and a TR Band was applied for hemostasis with 14cc of air placed in band. CORONARY ANGIOGRAPHY DOMINANCE: Left Dominant LEFT MAIN: Angiographically normal LEFT ANTERIOR DESCENDING ARTERY: LAD: Calcified 30% Proximal lesion in LAD Tubular 40% Mid lesion in LAD Tubular 95% Mid lesion in LAD DIAGONAL 1: Tubular 100% Ostial lesion in DIAG1 OM 1: Complex 100% Ostial lesion in MARG1 Tubular 90% Proximal lesion in MARG1 OM 2: Complex 100% Ostial lesion in MARG1 Tubular 90% Proximal lesion in MARG1 RIGHT CORONARY ARTERY: Angiographically normal GRAFTS: SVG Graft to MARG1 Tubular 95% lesion in SVG Graft to MARG1 CHIU Graft to LAD Tubular 50% lesion in CHIU Graft to LAD COLLATERAL FLOW: Collateral flow from DIAG2 to DIAG1 INTERVENTION INFORMATION LESION SITE: Prox SVG to 1st OM Proximal Segment Number Lesion Complexity: High/C, lesion length: 10 mm, culprit lesion: Yes Pre Stenosis: 95 % Pre intervention AZUL flow: 3 PROCEDURE: Drug Eluting Stent with pre dilatation. Post Stenosis: 0 % Post intervention AZUL flow: 3 Lesion Devices: Cordis 6 Fr JR4 100cm Guide Catheter Terumo .014 180cm Runthrough Extra Floppy straight Mele Sci EMERGE MR 2.00x12 BALLOON Medtronic 3.0 x 12 CHELY FRONTIER MAEGAN LESION SITE: OM (Proximal) Lesion Complexity: High/C, lesion length: 24 mm, culprit lesion: No Pre Stenosis: 90 % Pre intervention AZUL flow: 3 PROCEDURE: Drug Eluting Stent with post dilatation Post Stenosis: 0 % Post intervention AZUL flow: 3 Lesion Devices: Cordis 6 Fr JR4 100cm Guide Catheter Terumo .014 180cm Runthrough Extra Floppy straight Medtronic 2.25 x 26 CHELY FRONTIER MAEGAN Mele Sci NC EMERGE MR 2.50x12 BALLOON COMPLICATIONS No Complications PROCEDURE MEDICATIONS Fentanyl 50 mcg IV Versed 1 mg IV Versed 1 mg IV Versed 1 mg IV Fentanyl 50 mcg IV Versed 1 mg IV Fentanyl 50 mcg IV Fentanyl 50 mcg IV Fentanyl 50 mcg IV Versed 2 mg IV Oxygen: 2 L/min via nasal cannula Aspirin (325mg) 1 Tabs PO 02/24/2024 10:28:29 Adenosine 48 mcg IC 02/24/2024 14:20:30 Adenosine 48 mcg IV @ 02/24/2024 14:38:54 Heparin given IA 02/24/2024 13:50:34 Heparin 5000 unit(s) IV 02/24/2024 13:58:47 Heparin 2000 unit(s) IV 02/24/2024 14:51:19 Nitro 400 mcg IC 02/24/2024 14:18:54 Nitro 200 mcg IC 02/24/2024 14:32:11 Nitro 200 mcg IC 02/24/2024 14:39:12 Nitro 200 mcg IC 02/24/2024 14:41:00 Verapamil 2.5mg, Ntg 200mcgs, 2000 units of Heparin given IA 02/24/2024 13:50:34 IV Bolus: .9 NaCl 300 ml total 02/24/2024 15:03:32 SUMMARY OF HEMODYNAMIC DATA Time AIR REST ECG 09:52:59 AO 142/67 (94) SA 13:53:17 AO 168/63 (86) 14:53:10 AIR REST 15:39:25 Signed By Leat Childs MD On 02/24/2024 15:39:38 Leta Childs MD
--- NOTE | 2024-02-24 15:41 | DCINST_ITS ---
Discharge Instructions Diet Discharge Diet: Low fat / Low cholesterol Activity Discharge Activity: Return to Normal Activity Dressing / Incision Call your doctor if your incision/area has: Continuous Slow Oozing, Sudden Increased Bleeding, Increased Pain/ Swelling, Increased Redness, Foul Smelling Discharge and Swelling at the incision site Call your doctor if you observe: Fever of 101 or Higher, Coldness, Increased Pain, Numbness or Tingling and Change in Color Follow Up Care Please Follow Up With: Leta Childs MD When: 2 weeks Test Results: Test results from this visit will be discussed in further detail at your follow- up appointment, if applicable. Discharge Plan Admission Attending Provider: Leta Childs Primary Care Provider: Stacie Rivers NP Instructions Print Language: [place] Discharge Orders/Prescriptions Prescriptions: New aspirin 81 mg Tablet,Delayed Release (Dr/Ec) 81 mg PO DAILY@0800 Qty: 100 3RF isosorbide mononitrate 60 mg Tablet Extended Release 24 Hr 60 mg PO DAILY Qty: 30 6RF Continued clopidogrel 75 mg tablet 75 mg PO DAILY hydrochlorothiazide 25 mg tablet 25 mg PO DAILY metoprolol succinate 50 mg tablet extended release 24 hr 50 mg PO DAILY Qty: 90 3RF nitroglycerin 0.4 mg tablet, sublingual 0.4 mg SL PRN PRN (Reason: Cardiac/Chest Pain) Qty: 25 4RF oxycodone-acetaminophen 7.5-325 mg tablet 1 tab PO Q6H PRN (Reason: Pain) baclofen 5 mg tablet 2.5 - 5 mg PO TID PRN (Reason: Spasms) Patient Comments: TAKE 1/2 TO 1 TABLET BY MOUTH THREE TIMES A DAY NEEDED FOR SPASMS gabapentin 100 mg capsule 200 mg PO BID Patient Comments: TAKE 2 CAPSULES BY MOUTH 3 TIMES A DAY docusate sodium 100 mg capsule 100 mg PO Q OTHER DAY PRN (Reason: constipation) ondansetron 4 MG tablet 4 mg PO Q8H PRN PRN (Reason: Nausea) Qty: 10 0RF citalopram 20 mg tablet 20 mg PO QHS levetiracetam 500 mg Tablet 500 mg PO BID Qty: 60 0RF acetaminophen 500 mg capsule 1,000 mg PO Q8H PRN PRN (Reason: pain) Qty: 30 0RF losartan 100 mg tablet 100 mg PO DAILY Qty: 90 3RF Repatha SureClick 140 mg/mL pen injector 140 mg subcut Q2W Qty: 6 3RF amlodipine 5 mg tablet 10 mg PO DAILY Qty: 90 3RF Discontinued ranolazine 1,000 mg tablet extended release 12 hr 1,000 mg PO BID Qty: 180 3RF isosorbide mononitrate 60 mg tablet extended release 24 hr 60 mg PO BID Qty: 180 3RF Referrals / Follow Up: Stacie Rivers NP, [employer] [Primary Care Provider] - Disposition Disposition (needs filled in before D/C Order can be placed): Home, Self Care
--- NOTE | 2024-02-24 16:40 | CRPHASE1 ---
Patient Communication Patient Information Former Patient:: Phase I PHII Cardiac Rehab Discussed with Patient:: Yes Guide to Cardiac Rehab Given to Patient:: Yes Cardiac Rehab Facility Choice List Given to Patient:: Yes Communication to Cardiac Rehab Choice Program [facility] CR PHII:: Communication Given to CR [place] Stitcher:: Leta Childs Phase II Cardiac Rehab:: Yes Sessions:: 36 sessions - 3 days/wk, 12 weeks Cardiac Rehabilitation Info Program Information Cardiac Rehabilitation Program Information: Cardiac Rehab The cardiac rehab team at [facility] consists of highly skilled exercise physiologists, nurses, respiratory therapists and physicians working together with you. Our purpose is to help you have a full recovery and achieve the goals you set for yourself. Over the years many of our patients have returned to activities they assumed they would never do again! We can help restore your confidence and motivation to make lifestyle changes that can have a significant impact on your health and quality of life! We can help answer questions and concerns you may have about exercise, lifestyle, medications, diet, stress and anxiety which are common following a hospitalization. WE monitor ECG and vital signs during exercise and discuss your progress with you and report to your physician(s). Cardiac Rehab is proven to help reduce readmissions, improve functional capacity and lower recurrence of problems with your heart. Our Cardiac Rehab program is Certified by the [place] [employer] Pulmonary [employer] (AACVPR) and Accredited by the [place] through our [facility]. You can contact us at . We invite you to call us with your questions or to get started in our program. If you have other questions or concerns be sure to ask your physician/provider during your follow-up visit. WE look forward to seeing you!
--- NOTE | 2024-02-24 16:40 | CRPH1.INSTRU ---
General Education Discussed with Patient CAD and cardiac anatomy and function:: Patient communicates acknowledgment Explanation of diagnoses and procedures:: Patient communicates acknowledgment Sign/Symptoms of CO:: Patient communicates acknowledgment Antiplatelet therapy: Patient communicates acknowledgment Proper use of NTG-SL: Patient communicates acknowledgment Emergency procedures and activation of EMS: Patient communicates acknowledgment Compliance of all prescribed medications: Patient communicates acknowledgment Smoking Risk Factors Patient Nicotine/Smoking Risk Factors Are:: Non-smoker Recommendations Recommendations Include:: Previous smoker; encourage continued cessation Response Code Nicotine/Smoking Response Code:: Patient communicates acknowledgment Dyslipidemia Risk Factors Patient Dyslipidemia Risk Factors Are:: Total Cholesterol, Triglycerides, HDL and LDL Recommendations Recommendations Include:: Lipid profile not available, Reviewed NCEP/ATP guidelines and Therapeutic Lifestyle Change dietary guidelines Response Code Dyslipidemia Response Code:: Patient communicates acknowledgment Overweight/Obesity Risk Factors Patient Overweight/Obesity Risk Factors Are:: Obesity - > or = 30 Recommendations Recommendations Include:: Weight loss of 5-10%, Reduced calorie diet and Exercise 5-7 times/week Response Code Overweight/Obesity:: Patient communicates acknowledgment Hypertension Recommendations Recommendations Include:: Maintain BP <130/85, DASH dietary guidelines and Decrease/maintain normal body weight Response Code Hypertension:: Patient communicates acknowledgment Diabetes Risk Factors Patient Diabetes Risk Factors Are:: No documented hx of diabetes Metabolic Syndrome Risk Factors Patient Metabolic Syndrome Risk Factors Are [3 of 5]:: Fasting blood sugar > 100 mg/dL, Waist circumference > 35 [female] or 40 [male], High triglyceride >150, Hypertension and Low HDL <40 [male] or < 50 [female] Recommendations Recommendations Include:: Reinforce compliance to risk factor modifications and Encouraged follow-up with Primary Care Physician Response Code Metabolic Syndrome Response Code:: Patient communicates acknowledgment Sedentary Risk Factors Patient Sedentary Risk Factors Are:: Lack of regular exercise Recommendations Recommendations Include:: Aerobic exercise 5-7 times/week for 20-30 minutes continuously, Benefits of regular exercise, Discussed home walking program and Monitored Outpatient Cardiac Rehab Response Code Sedentary Response Code:: Patient communicates acknowledgment Stress Recommendations Recommendations Include:: Identification of stressors, and assessment of coping skills and Stress management techniques Response Code Stress Response Code:: Patient communicates acknowledgment
[2024-02-24 18:00] VITALS: BP 137/69; PULSE 68; RESP 16; TEMP 36.4; O2SAT 98
[2024-02-24] MEDS: 0.9% Normal Saline (1000mL) 1,000 ML 150 ML IV (18:59)
[2024-02-24] MEDS: Gabapentin 100 MG Capsule 200 MG PO (22:03)
[2024-02-24] MEDS: Citalopram 20 MG Tablet PO (22:03)
[2024-02-24] MEDS: levETIRAcetam 500 MG Tablet PO (22:03)
[2024-02-25] VITALS: BP 135/55; PULSE 69; RESP 17; TEMP 36.4; O2SAT 98
[2024-02-25 05:32] VITALS: BP 148/67; PULSE 63; RESP 14; TEMP 36.6; O2SAT 96
[2024-02-25 06:01] LABS: Hematocrit 35.4 % (37-47); Hemoglobin 11.8 g/dL (12.0-15.0); Mean Corp Hgb Conc 33.3 g/dL (32-36); Mean Corpuscular Hgb 33.1 pg (27.0-32.0); Mean Corpuscular Volume 99.4 fL (81-99); Mean Platelet Vol. 9.6 fl (6.2-12.0); Platelet Count 189 K/mm3 (150-450); RBC Distribution Width CV 12.6 % (11.6-14.6); RBC Distribution Width SD 46.6 fl (35.1-43.9); Red Blood Count 3.56 M/mm3 (4.2-5.4); White Blood Count 5.9 K/mm3 (4.4-11.0)
[2024-02-25 06:25] LABS: ALB/GLOB Ratio 1.2 RATIO (0.9-2.4); AST(SGOT) 17 U/L (15-37); Alanine Aminotransfer ALT/SGPT 31 U/L (13-56); Alkaline Phosphatase 53 U/L (45-117); Anion Gap 6 (5-15); BUN 13 mg/dL (7-18); BUN/Creat Ratio 14.9 RATIO (10-20); Calcium,Total 8.5 mg/dL (8.5-10.1); Chloride 111 mmol/L (98-107); Cholesterol 120 mg/dL (200); Creatinine, Serum 0.87 mg/dL (0.55-1.02); EST Glomerular Filtration Rate 67 mL/min (>60); Est Glom Filt Rate - Afr Amer 81 mL/min (>60); Estimated Creatinine Clearance 54.89 ml/min; Globulin 2.4 g/dL (2.2-4.2); Glucose 99 mg/dL (74-106); High Density Lipoprotein 42 mg/dL; Potassium 4.1 mmol/L (3.5-5.1); Protein, Total 5.4 g/dL (6.4-8.2); Sodium Level 142 mmol/L (136-145); Triglycerides 110 mg/dL; Very Low Density Lipoprotein 22 mg/dL (5-40)
--- NOTE | 2024-02-25 09:32 | CASEMGMT ---
Pt has an order for DC placed. PAULINA CM to pt room at this time. Pt states that she lives with her and son at home. Pt states that she has 2 daughters that live close as well. Pt states that she is independent and denies any homegoing needs. Pt states that she feels safe going home today and denies further needs at this time.
[2024-02-25 10:32] VITALS: PULSE 85
[2024-02-25] MEDS: Clopidogrel Bisulfate 75 MG Tablet PO (10:32)
[2024-02-25] MEDS: levETIRAcetam 500 MG Tablet PO (10:32)
[2024-02-25] MEDS: Metoprolol(XL)Succ 50 MG Tablet PO (10:32)
[2024-02-25] MEDS: amLODIPine 10 MG Tablet PO (10:33)
[2024-02-25] MEDS: Aspirin E.C. 81 MG Tablet PO (10:33)
[2024-02-25] MEDS: Isosorbide Mononitrate 60 MG Tablet PO (10:33)
[2024-02-25] MEDS: Losartan Potassium 100 MG Tablet PO (10:33)
[2024-02-25] MEDS: hydroCHLOROthiazide 25 MG Tablet PO (10:33)
[2024-02-25] MEDS: oxyCODONE 5 MG Tablet 7.5 MG PO (10:47)
[2024-02-25] MEDS: Acetaminophen 500 MG Tablet 1000 MG PO (10:48)
[2024-02-25] MEDS: Gabapentin 100 MG Capsule 200 MG PO (10:48)
[2024-02-25 11:00] VITALS: BP 138/53; PULSE 72; RESP 16; TEMP 35.8; O2SAT 100
[2024-02-25 13:15] VITALS: O2SAT 100
== END 2024-02-25 10:10 | disposition home or self-care (01) ==
LOC: CLSP 15:41 → PCU 18:00
PROVIDERS: Admitting Provider Internal Medicine Cardiovascular Disease; PCP Nurse Practitioner Adult Health; Referring Provider Internal Medicine Cardiovascular Disease; Visit Provider Internal Medicine Cardiovascular Disease
DX: I25.110 Atherosclerotic heart disease of native coronary artery with unstable angina pectoris (principal); Z79.899 Other long term (current) drug therapy; Z79.02 Long term (current) use of antithrombotics/antiplatelets; E78.5 Hyperlipidemia, unspecified; I10 Essential (primary) hypertension; M79.7 Fibromyalgia; Z87.891 Personal history of nicotine dependence; K21.9 Gastro-esophageal reflux disease without esophagitis; I25.2 Old myocardial infarction; Z95.1 Presence of aortocoronary bypass graft; Z95.5 Presence of coronary angioplasty implant and graft
CPT/HCPCS: 80053; 80061; 85027; 85347; 92937; 93005; 93455; 96360; 96361; 99152; 99153; 99221; J7030; J7040; Q9967; C1725; C1769; C1874; C1887; C1894; C9604; G0378; J0153

== ENCOUNTER → 2024-04-07 | Outpatient (CLI) | payer MEDICARE, SELFPAY ==
[2022-07-22 13:42] VITALS: BMI 31.7
--- NOTE | 2024-04-07 12:59 | CDU_ITS ---
Reason For Study: Carotid Artery Stenosis Rt. Velocities/BP Lt. Velocities/BP Prox CCA 85.3/16.0 cm/sec. Prox CCA 60.9/14.2 cm/sec. Mid CCA 67.7/10.6 cm/sec. Mid CCA 56.0/15.5 cm/sec. Dist CCA 50.1/13.8 cm/sec. Dist CCA 70.7/14.2 cm/sec. Prox ICA 86.4/16.0 cm/sec. Prox ICA 70.5/22.3 cm/sec. Mid ICA 88.6/21.5 cm/sec. Mid ICA 74.4/20.4 cm/sec. Dist ICA 73.5/18.6 cm/sec. Dist ICA 73.2/22.8 cm/sec. Rt. ICA/CCA = 1.3. Lt. ICA/CCA = 1.3. Prox ECA 107.6/8.9 cm/sec. Prox ECA 117.7/10.1 cm/sec. Rt. Vert. 31.5/9.9 cm/sec. Lt. Vert. 33.9/8.3 cm/sec. Right Extracranial There is intimal thickening but no significant atherosclerotic plaque noted in the right common carotid artery. There is heterogeneous, irregular atherosclerotic plaque noted in the right internal carotid artery. There is heterogeneous, irregular atherosclerotic plaque noted in the right external carotid artery. Antegrade flow is noted in the right vertebral artery. Left Extracranial There is heterogeneous, smooth atherosclerotic plaque noted in the left common carotid artery. There is heterogeneous, irregular atherosclerotic plaque noted in the left internal carotid artery. There is heterogeneous, irregular atherosclerotic plaque noted in the left external carotid artery. Antegrade flow is noted in the left vertebral artery. Procedure Carotid Duplex 80441. This is a Carotid Duplex examination using B-mode, color flow and specral Doppler. The exam was diagnostic. Exam performed in department. VL/Carotid Duplex Ultrasound Interpretation Summary Mild (<50%) stenosis right extracranial internal carotid. Mild (<50%) stenosis left extracranial internal carotid. Patent and antegrade vertebrals bilaterally. Ordering Physician: Leta Childs Referring Physician: Stacie Rivers Performed By: Parviz Falk RVT
--- NOTE | 2024-04-07 12:59 | ECHOD_ITS ---
Reason For Study: MITRAL REGURGITATION Procedure This was a 2D Doppler, Color Flow transthoracic echocardiogram. Exam performed in department. Left Ventricle Normal size and thickness. The left ventricular ejection fraction is 65 %. Stage 2 diastolic dysfunction. Right Ventricle Normal right ventricle. Atria The left atrium is mildly enlarged. Normal right atrium. Mitral Valve Mild mitral annular calcification. Mild (1+) mitral valve insufficiency. Tricuspid Valve Mild tricuspid valve insufficiency. Right ventricular systolic pressure estimated to be 38 mmHg. Aortic Valve Aortic sclerosis, no stenosis. Mild (1+) aortic valve insufficiency. Pulmonic Valve Mild-Moderate (1-2+) pulmonic valve insufficiency. Great Vessels Normal sized aortic root. Pericardium/Pleural No pericardial effusion. MMode/2D Measurements & Calculations LVIDd: 4.3 cm IVSd: 0.93 cm LVOT diam: 1.9 cm LVIDs: 2.9 cm LVPWd: 0.88 cm LVOT area: 3.0 cm2 RVDd: 3.9 cm FS: 32.1 % asc Aorta Diam: 3.4 cm LAV(MOD-bp): 35.1 ml LVAd ap4: 17.4 cm2 LAV(MOD-bp) Indexed: 19.0 ml/m2 LVLd ap4: 5.7 cm LAV(MOD-sp2): 33.7 ml EDV(MOD-sp4): 43.8 ml LAV(MOD-sp4): 34.4 ml EDV(sp4-el): 45.3 ml LVAs ap4: 9.4 cm2 LVLs ap4: 4.5 cm ESV(MOD-sp4): 16.7 ml ESV(sp4-el): 16.8 ml EF(MOD-sp4): 61.8 % EF(sp4-el): 62.9 % LVAd ap2: 18.9 cm2 SV(MOD-sp4): 27.1 ml SV(MOD-sp2): 33.2 ml LVLd ap2: 5.8 cm SI(MOD-sp4): 14.7 ml/m2 SI(MOD-sp2): 18.0 ml/m2 EDV(MOD-sp2): 50.4 ml EDV(sp2-el): 52.0 ml LVAs ap2: 10.3 cm2 LVLs ap2: 5.0 cm ESV(MOD-sp2): 17.2 ml ESV(sp2-el): 18.1 ml EF(MOD-sp2): 65.9 % SV(sp4-el): 28.5 ml Ao sinus diam: 3.[address] Junction: 2.1 cm LA dimension(2D): 3.9 cm LA A4 area: 13.8 cm2 RA A4 area: 10.5 cm2 TAPSE: 1.3 cm Time Measurements MV dec time: 0.18 sec Doppler Measurements & Calculations MV E max zuhair: 91.8 cm/sec Lat Peak E' Zuhair: 7.3 cm/sec Med Peak E' Zuhair: 4.5 cm/sec MV A max zuhair: 57.5 cm/sec E/E' lat: 12.5 E/E' med: 20.3 MV E/A: 1.6 MV dec slope: 501.3 cm/sec2 Ao V2 max: 131.6 cm/sec AI max zuhair: 320.1 cm/sec Ao max P.9 mmHg AI max P.0 mmHg Ao V2 mean: 83.9 cm/sec AI dec slope: 147.1 cm/sec2 Ao mean P.2 mmHg AI P1/2t: 637.5 msec Ao V2 VTI: 26.5 cm AV (velocity ratio): 0.89 BILLIE(I,D): 2.6 cm2 BILLIE(V,D): 2.2 cm2 LV V1 max: 98.0 cm/sec SV(LVOT): 69.8 ml PA V2 max: 90.3 cm/sec LV V1 max P.8 mmHg LV V1 mean P.3 mmHg LV V1 mean: 72.8 cm/sec LV V1 VTI: 23.6 cm PI end-d zuhair: 91.9 cm/sec TR max zuhair: 280.5 cm/sec TR max P.5 mmHg ECHO/Echo Complete Interpretation Summary The left ventricular ejection fraction is 65 %. Stage 2 diastolic dysfunction. Mild (1+) mitral valve insufficiency. Mild tricuspid valve insufficiency. Mild (1+) aortic valve insufficiency. Mild-Moderate (1-2+) pulmonic valve insufficiency. Ordering Physician: Leta Childs Referring Physician: Leta Childs MD Performed By: Kaur Hampton RDCS
== END | disposition home or self-care (01) ==
LOC: CVS 12:57
PROVIDERS: PCP Nurse Practitioner Adult Health; Referring Provider Internal Medicine Cardiovascular Disease; Visit Provider Internal Medicine Cardiovascular Disease
DX: I34.0 Nonrheumatic mitral (valve) insufficiency (principal); R42 Dizziness and giddiness; I77.9 Disorder of arteries and arterioles, unspecified; E78.5 Hyperlipidemia, unspecified; I10 Essential (primary) hypertension; Z95.1 Presence of aortocoronary bypass graft
CPT/HCPCS: 93306; 93880

== ENCOUNTER → 2024-10-06 | Outpatient (CLI) | payer MEDICARE, SELFPAY ==
[2022-07-22 13:42] VITALS: BMI 31.7
[2024-10-06 12:15] LABS: Hematocrit 34.2 % (37-47); Hemoglobin 11.6 g/dL (12.0-15.0); Mean Corp Hgb Conc 33.9 g/dL (32-36); Mean Corpuscular Volume 106.2 fL (81-99); Mean Platelet Vol. 9.4 fl (6.2-12.0); Platelet Count 200 K/mm3 (150-450); RBC Distribution Width CV 15.5 % (11.6-14.6); RBC Distribution Width SD 61.1 fl (35.1-43.9); Red Blood Count 3.22 M/mm3 (4.2-5.4); White Blood Count 5.8 K/mm3 (4.4-11.0)
[2024-10-06 13:08] LABS: ALB/GLOB Ratio 1.5 RATIO (0.9-2.4); AST(SGOT) 23 U/L (<=31); Alanine Aminotransfer ALT/SGPT 17 U/L (<=34); Albumin, Serum 3.9 g/dL (3.4-4.8); Alkaline Phosphatase 66 U/L (35-104); Anion Gap 9 (5-15); BUN 12 mg/dL (4-19); Calcium,Total 9.1 mg/dL (7.6-11.0); Carbon Dioxide 27.9 mmol/L (21.0-32.0); Chloride 105 mmol/L (98-108); Cholesterol 225 mg/dL (<=200); Creatinine, Serum 1.06 mg/dL (0.70-1.20); EST Glomerular Filtration Rate 54 (>60); Globulin 2.5 g/dL (2.2-4.2); Glucose 94 mg/dL (70-99); High Density Lipoprotein 23 mg/dL; Low Density Lipoprotein Calc. 197 mg/dL; Potassium 4.2 mmol/L (3.3-5.1); Protein, Total 6.4 g/dL (5.9-8.4); Sodium Level 142 mmol/L (133-145); Total Bilirubin 0.46 mg/dL (0.00-1.30); Triglycerides 25 mg/dL; Very Low Density Lipoprotein 5 mg/dL (5-40); cholesterol:hdl ratio screen 9.91
[2024-10-11 14:08] LABS: Vitamin D 1,25-Dihydroxy 31.5 pg/mL (24.8-81.5)
== END | disposition home or self-care (01) ==
LOC: LAB 11:30
PROVIDERS: PCP Nurse Practitioner Adult Health; Referring Provider Physician Assistant Medical; Visit Provider Physician Assistant Medical
DX: R53.1 Weakness (principal); I25.10 Atherosclerotic heart disease of native coronary artery without angina pectoris; E78.5 Hyperlipidemia, unspecified
CPT/HCPCS: 36415; 80053; 80061; 82652; 84443; 85027

== ENCOUNTER → 2024-11-01 | Outpatient (CLI) | payer MEDICARE, SELFPAY ==
[2022-07-22 13:42] VITALS: BMI 31.7
--- NOTE | 2024-11-01 14:43 | RAD_ITS ---
PROCEDURE: HIP, UNI W/ PELVIS 2-3 VIEWS 11/01/2024 REASON FOR EXAM: HIP PAIN VERSUS RADICULAR SYMPTOMS TECHNIQUE: HIP, UNI W/ PELVIS 2-3 VIEWS COMPARISON: 01/05/2023. FINDINGS: Mild osteopenia of the visualized bones. Degenerative joint disease. No fracture or dislocation is seen. No lytic or blastic bone lesion is noted. Moderate diffuse spondylosis. Metallic clips are noted in the pelvis. RAD/HIP, UNI W/ Pelvis 2-3 Views IMPRESSION: No evidence for acute abnormality. Reading [facility]
== END | disposition home or self-care (01) ==
LOC: RAD 14:40
PROVIDERS: PCP Nurse Practitioner Adult Health; Referring Provider Clinical Nurse Specialist Adult Health; Visit Provider Clinical Nurse Specialist Adult Health
DX: M25.551 Pain in right hip (principal)
CPT/HCPCS: 73502

== ENCOUNTER → 2024-11-03 | Outpatient (CLI) | payer MEDICARE, SELFPAY ==
[2022-07-22 13:42] VITALS: BMI 31.7
--- NOTE | 2024-11-03 14:03 | CT_ITS ---
PROCEDURE: CTA ABDOMEN W/WO CONTRAST 11/03/2024 REASON FOR EXAM: AAA TECHNIQUE: CTA ABDOMEN W/WO CONTRAST Multiplanar Sagittal and Coronal images were obtained. CONTRAST: Isovue 3 7 VOLUME: 100 mL One or more dose reduction techniques were used (e.g., Automated exposure control, adjustment of the mA and/or kV according to patient size, use of iterative reconstruction technique). RADIATION DOSE SUMMARY: CTDlvol: 25 mGy DLP: 587.36 mGycm COMPARISON: Comparison is made with prior study dated December 15, 2021. FINDINGS: The lung bases are clear. Coronary artery calcification. The liver is unremarkable. The patient is status post cholecystectomy. Mild degree of central intrahepatic biliary ductal dilatation. The common bile duct is slightly dilated measuring 8.4 mm down to the ampulla of Vater. Mild dilatation of the pancreatic duct. Sigmoid diverticulosis. Aorta: Infrarenal abdominal aortic aneurysm with a transverse dimension of 3.8 cm. Calcification of the wall of the aorta. Iliac Arteries: Mild calcific plaques although no significant stenosis seen. Celiac: Mild calcific non stenotic plaque at its origin. SMA: Non stenotic calcific plaque at its origin. MICHAEL : Not visualized Right Renal: Unremarkable Left Renal: Unremarkable Other Findings: CT/CTA Abdomen W/WO Contrast IMPRESSION: Infrarenal abdominal aortic aneurysm with a transverse dimension of 3.8 cm. Reading Location: [place] [address]
== END | disposition home or self-care (01) ==
LOC: CT 14:02
PROVIDERS: PCP Nurse Practitioner Adult Health; Referring Provider Physician Assistant Medical; Visit Provider Physician Assistant Medical
DX: I71.43 Infrarenal abdominal aortic aneurysm, without rupture (principal)
CPT/HCPCS: 74175; Q9967

== ENCOUNTER → 2025-01-13 | Outpatient (CLI) | payer MEDICARE, SELFPAY ==
[2022-07-22 13:42] VITALS: BMI 31.7
[2025-01-13 13:07] LABS: Hematocrit 36.0 % (37-47); Hemoglobin 12.5 g/dL (12.0-15.0); Mean Corp Hgb Conc 34.7 g/dL (32-36); Mean Corpuscular Volume 106.8 fL (81-99); Mean Platelet Vol. 9.2 fl (6.2-12.0); Platelet Count 207 K/mm3 (150-450); RBC Distribution Width CV 14.0 % (11.6-14.6); RBC Distribution Width SD 54.3 fl (35.1-43.9); Red Blood Count 3.37 M/mm3 (4.2-5.4); White Blood Count 6.8 K/mm3 (4.4-11.0)
[2025-01-13 13:55] LABS: AST(SGOT) 28 U/L (<=31); Alanine Aminotransfer ALT/SGPT 20 U/L (<=34); Albumin, Serum 4.1 g/dL (3.4-4.8); Alkaline Phosphatase 85 U/L (35-104); Anion Gap 12 (5-15); BUN 19 mg/dL (4-19); BUN/Creat Ratio 15.4 RATIO (10-20); Calcium,Total 9.5 mg/dL (7.6-11.0); Carbon Dioxide 25.6 mmol/L (21.0-32.0); Chloride 103 mmol/L (98-108); Cholesterol 210 mg/dL (<=200); Globulin 2.6 g/dL (2.2-4.2); Glucose 104 mg/dL (70-99); Low Density Lipoprotein Calc. 146 mg/dL; Potassium 4.6 mmol/L (3.3-5.1); Triglycerides 115 mg/dL; Very Low Density Lipoprotein 23 mg/dL (5-40); cholesterol:hdl ratio screen 5.06
[2025-01-13 14:55] LABS: Vitamin D,25 Hydroxy 19.9 ng/mL (30-100)
== END | disposition home or self-care (01) ==
LOC: LAB 12:37
PROVIDERS: PCP Nurse Practitioner Adult Health; Referring Provider Nurse Practitioner Adult Health; Visit Provider Nurse Practitioner Adult Health
DX: I10 Essential (primary) hypertension (principal); Z13.220 Encounter for screening for lipoid disorders; E55.9 Vitamin D deficiency, unspecified; Z13.29 Encounter for screening for other suspected endocrine disorder
CPT/HCPCS: 36415; 80053; 80061; 82306; 84443; 85027

== ENCOUNTER → 2025-02-28 | Outpatient (CLI) | payer MEDICARE, SELFPAY ==
[2022-07-22 13:42] VITALS: BMI 31.7
--- NOTE | 2025-02-28 13:25 | BD_ITS ---
PROCEDURE: DEXA BONE DENSITY STUDY 02/28/2025 REASON FOR EXAM: F, age 80 y/o . Postmenopausal. TECHNIQUE: Procedure Code: BDDBD Modality: DX Procedure: DEXA BONE DENSITY STUDY COMPARISON: None FINDINGS: BMD and T-SCORES Lumbar spine: 1.246 g/cm2, T-score 2.1 Levels: L1 through L4 Left femoral neck: 0.607 g/cm2, T-score -2.2 Femoral neck comparison data not recommended for monitoring change. Left total hip: 0.765 g/cm2, T-score -1.4 Right femoral neck: 0.660 g/cm2, T-score -1.7 Femoral neck comparison data not recommended for monitoring change. Right total hip: 0.764 g/cm2, T-score -1.5 The World Health Organization has defined the following categories based on bone density: Normal bone density: T-score equal to or greater than -1.0 Osteopenia: T-score between -1.0 and -2.5 Osteoporosis: T-score equal to or less than -2.5 FRAX (or Comparable) Fracture Risk Assessment: 10 Year Probability of Fracture: Major Osteoporotic Fracture: 36% Hip Fracture: 24% (Note: FRAX is not to be reported in setting of normal range bone density, osteoporosis on DEXA, known history of osteoporosis, prior osteoporotic hip or vertebral fracture, or for any patient undergoing pharmacological treatment for bone loss.) The National Osteoporosis Foundation (NOF) recommends pharmacological treatment for patients with a FRAX 10-year risk of 3% or higher for a hip fracture, or 20% or higher for a major osteoporotic fracture, to prevent osteoporosis and reduce fracture risk. The patient does meet the pharmacological treatment recommendations for prevention of osteoporosis. BD/Dexa Bone Density Study IMPRESSION: OSTEOPENIA. Recommend follow-up as clinically warranted. Reading Location: [place] [id number]
--- NOTE | 2025-02-28 13:46 | ECHOCS_ITS ---
Reason For Study Reason For Study: CAD/ASHD Procedure This was a 2D Doppler, Color Flow transthoracic echocardiogram. Contrast injection was performed. The study was technically difficult. Exam performed in department. Left Ventricle Normal size and thickness. The left ventricular ejection fraction is 65 %. Diastolic function is indeterminate. Right Ventricle Normal right ventricle. Atria There is mild biatrial dilatation. Mitral Valve Mild (1+) mitral valve insufficiency. Tricuspid Valve Moderate (2+) tricuspid valve insufficiency. Right ventricular systolic pressure estimated to be 42 mmHg. Aortic Valve Aortic sclerosis, no stenosis. Mild (1+) aortic valve insufficiency. Pulmonic Valve Mild-Moderate (1-2+) pulmonic valve insufficiency. Great Vessels Normal sized aortic root. Pericardium/Pleural Trivial pericardial effusion. Medication 22 gauge I.V. with prn adaptor inserted into right arm. Diluted definity 1ml given slow IV push to enhance endocardial definition. MMode/2D Measurements & Calculations LVIDd: 4.6 cm IVSd: 1.0 cm LVOT diam: 2.1 cm RVDd: 3.8 cm LVPWd: 0.99 cm LVOT area: 3.3 cm2 Ao root diam: 3.4 cm LAV(MOD-bp): 49.7 ml LA dimension: 4.2 cm LVAd ap4: 28.4 cm2 LAV(MOD-bp) Indexed: 26.5 ml/m2 LVLd ap4: 7.1 cm LAV(MOD-sp2): 46.5 ml EDV(MOD-sp4): 91.1 ml LAV(MOD-sp4): 45.4 ml EDV(sp4-el): 95.7 ml LVAs ap4: 15.0 cm2 LVLs ap4: 5.7 cm ESV(MOD-sp4): 34.1 ml ESV(sp4-el): 33.3 ml EF(MOD-sp4): 62.5 % EF(sp4-el): 65.2 % SV(MOD-sp4): 57.0 ml SV(sp4-el): 62.4 ml LA A4 area: 18.3 cm2 SI(MOD-sp4): 30.4 ml/m2 LA dimension(2D): 3.5 cm RA A4 area: 15.7 cm2 Time Measurements MV dec time: 0.21 sec Doppler Measurements & Calculations MV E max zuhair: 105.3 cm/sec Lat Peak E' Zuahir: 9.4 cm/sec Med Peak E' Zuhair: 7.4 cm/sec MV A max zuhair: 57.7 cm/sec E/E' lat: 11.3 E/E' med: 14.3 MV E/A: 1.8 MV V2 max: 117.8 cm/sec MV P1/2t max zuhair: 118.7 cm/sec Ao V2 max: 148.3 cm/sec MV max P.5 mmHg MV P1/2t: 83.4 msec Ao max P.8 mmHg MV V2 mean: 56.7 cm/sec MV dec slope: 417.2 cm/sec2 Ao V2 mean: 99.0 cm/sec MV mean P.6 mmHg Ao mean P.5 mmHg MV V2 VTI: 40.0 cm MVA(P1/2t): 2.6 cm2 Ao V2 VTI: 38.2 cm MVA(VTI): 2.2 cm2 AV (velocity ratio): 0.68 BILLIE(I,D): 2.3 cm2 BILLIE(V,D): 2.2 cm2 AI max zuhair: 332.2 cm/sec LV V1 max: 96.4 cm/sec MR max zuhair: 502.6 cm/sec AI max P.2 mmHg LV V1 max P.7 mmHg MR max P.0 mmHg AI dec slope: 146.5 cm/sec2 LV V1 mean P.2 mmHg AI P1/2t: 664.1 msec LV V1 mean: 70.1 cm/sec LV V1 VTI: 25.9 cm SV(LVOT): 86.7 ml PA V2 max: 94.9 cm/sec PI dec slope: 207.6 cm/sec2 TR max zuhair: 301.1 cm/sec TR max P.5 mmHg ECHO/Echo Complete W/ Contrast Interpretation Summary The left ventricular ejection fraction is 65 %. Diastolic function is indeterminate. There is mild biatrial dilatation. Mild (1+) mitral valve insufficiency. Moderate (2+) tricuspid valve insufficiency. Right ventricular systolic pressure estimated to be 42 mmHg. Aortic sclerosis, no stenosis. Mild (1+) aortic valve insufficiency. Mild-Moderate (1-2+) pulmonic valve insufficiency. Ordering Physician: Leta Childs Referring Physician: Stacie Rivers Performed By: Pankaj Cerna RCS
== END | disposition home or self-care (01) ==
LOC: OPBD 13:16
PROVIDERS: PCP Nurse Practitioner Adult Health; Referring Provider Nurse Practitioner Adult Health; Visit Provider Nurse Practitioner Adult Health
DX: Z78.0 Asymptomatic menopausal state (principal); I25.10 Atherosclerotic heart disease of native coronary artery without angina pectoris
CPT/HCPCS: 77080; 93306; Q9957; A4216; C8929